=== PATIENT | female | born 1955 | race Caucasian/White ===

== ENCOUNTER 2018-03-22 05:45 | Emergency (ER) | payer MEDICARE ==
[~2018-03-22] VITALS: Ht 154.9 cm; Wt 63.5 kg
[~2018-03-22 05:45] MED LIST: METFORMIN HCL500 MG; METFORMIN HCL500 MG PO; NORCO 5-325 TA1 EACH PO; ULTRAM50 MG PO
[2018-03-22] MEDS ORDERED: PYRIDIUM200 MG PO (06:56)
[2018-03-22] MEDS ORDERED: KEFLEX500 MG PO (06:56)
== END 2018-03-22 07:04 | disposition home or self-care (01) ==
LOC: ED 05:45
DX: R13.10 Dysphagia, unspecified (principal); N39.0 Urinary tract infection, site not specified; F17.200 Nicotine dependence, unspecified, uncomplicated; Z88.5 Allergy status to narcotic agent; Z79.84 Long term (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 drugs
CPT/HCPCS: 81001; 99283

== ENCOUNTER 2018-06-01 08:11 | Day surgery (SDC) | payer MEDICARE ==
[~2018-06-01] VITALS: Ht 154.9 cm; Wt 66.2 kg
--- NOTE | ~2018-06-01 | OR ---
[facility] [address] [place], [place] [address] Draft DATE OF OPERATION: 06/01/2018 SURGEON: Ac Smith MD PREOPERATIVE DIAGNOSIS: Right laryngeal mass. POSTOPERATIVE DIAGNOSIS: Right laryngeal mass. PROCEDURES PERFORMED: Direct laryngoscopy, biopsy, debulking of right laryngeal tumor. ANESTHESIA: General orotracheal; SPACE OPERATIONS, Mercedes Chandler. PREOP HISTORY: Raudel is a 62-year-old lady with hoarseness for nine months plus. Exam in the office had shown a right laryngeal mass at the level of the vocal cord. She is taken to the operating room for the above-mentioned procedures. OPERATIVE PROCEDURE AND FINDINGS: After informed consent, the patient was taken to the operating room, placed in supine position where general orotracheal anesthesia was induced. The patient and procedure were verified. The patient was repositioned. Anterior commissure laryngoscope was used to visualize the hypopharynx and larynx. There was a bulky tumor in the right hemilarynx extending to the anterior commissure. This involved the true cord did not extend significantly below the cord, did have some submucosal involvement of the supraglottic structures on the right. Multiple biopsies were taken. The tumor was debulked, moderate bleeding stopped afterwards. The specimen was sent to pathology in formalin. The airway was slightly improved with the debulking. The bleeding had stopped after the procedure. The patient was awakened, extubated, transported to recovery room in good condition. No complications. ESTIMATED BLOOD LOSS: Minimal. SPECIMEN: To pathology. PATIENT NAME: RAUDEL VASQUEZ OPERATIVE REPORT DATE OF : 55 REPORT #: [id number] PHYSICIAN: AC SMITH MD PCP: SHELLIE MÁRQUEZ DO REPORT IS CONFIDENTIAL AND NOT TO BE RELEASED WITHOUT AUTHORIZATION [address] [place], [place] [address] [facility] DRAINS: None. Ac Smith MD GC/SOCORRO /[id number] Copies: ~ PATIENT NAME: RAUDEL VASQUEZ OPERATIVE REPORT DATE OF : 55 REPORT #: [id number] PHYSICIAN: AC SMITH MD PCP: SHELLIE MÁRQUEZ DO REPORT IS CONFIDENTIAL AND NOT TO BE RELEASED WITHOUT AUTHORIZATION
--- NOTE | ~2018-06-01 | OR ---
[facility] [address] [place], [place] [address] Draft DATE OF OPERATION: 06/01/2018 SURGEON: Ac Smith MD PREOPERATIVE DIAGNOSIS: Airway obstruction. POSTOPERATIVE DIAGNOSIS: Airway obstruction. PROCEDURE: Tracheostomy. ANESTHESIA: General orotracheal; BRICK MOLDER HAND, Mercedes Chandler. PREOPERATIVE HISTORY: Raudel is a 62-year-old lady who has a large right-sided laryngeal tumor. This was biopsied via direct laryngoscopy, general anesthetic. Earlier today in the recovery room, she had a fairly severe airway obstruction, stridor, and decision was made to perform an urgent tracheostomy for airway stabilization. OPERATIVE PROCEDURE AND FINDINGS: After an informed consent, the patient was taken to the OR, placed in the supine position where general orotracheal anesthesia was induced. The patient and procedure were verified. Head and neck were extended on a shoulder roll. The anterior neck was sterilely prepped and draped. Transverse incision was marked fingerbreadth inferior to the cricoid cartilage. A 1% lidocaine with epi was injected. Incision was made through skin and subcutaneous tissue. Dissection carried through the midline raphae down to the anterior tracheal wall. The thyroid isthmus was superior to the tracheal wall and just a small portion of the thyroid isthmus was divided in the midline with needle point cautery. An incision was made through the 2nd and 3rd tracheal interspace and the endotracheal tube identified. A small portion of cartilage adjacent inferior cartilage ring was removed. A #6 cuffed nonfenestrated Shiley trach tube was then placed with removal of the endotracheal tube. Excellent airway was obtained. The trach tube was sutured into place with 2-0 interrupted nylon. Velcro trach tie and sterile dressing. The patient was then awakened, transported to the recovery room in good condition. COMPLICATIONS: No complications. PATIENT NAME: RAUDEL VASQUEZ OPERATIVE REPORT DATE OF : 55 REPORT #: [id number] PHYSICIAN: AC SMITH MD PCP: SHELLIE MÁRQUEZ DO REPORT IS CONFIDENTIAL AND NOT TO BE RELEASED WITHOUT AUTHORIZATION [address] [place], [place] [address] Draft BLOOD LOSS: Minimal. SPECIMENS: No specimens. DRAINS: No drains. Trach tube was a #6 Shiley. Ac Smith MD GC/MODL /[id number] Copies: ~ PATIENT NAME: RAUDEL VASQUEZ OPERATIVE REPORT DATE OF : 55 REPORT #: [id number] PHYSICIAN: AC SMITH MD PCP: SHELLIE MÁRQUEZ DO REPORT IS CONFIDENTIAL AND NOT TO BE RELEASED WITHOUT AUTHORIZATION
--- NOTE | ~2018-06-01 | HP ---
[facility] [address] [place], [place] [address] Draft H&P DATE: 05/31/2018 The patient is referred by Dr. Márquez. Same-day surgery had appreciated. CHIEF COMPLAINT: Hoarseness. HISTORY: Raudel is a 62-year-old smoker with a 9-month history of a very hoarse voice. She has a sore throat, mainly right-sided earache. Occasionally feels like her throat is closing and she cannot breathe. She has had trouble swallowing. She is a long-term smoker. She was recently seen by her primary, Dr. Márquez, who has referred her for otolaryngologic evaluation. REVIEW OF SYSTEMS: Generally healthy. She does have some headaches, facial pain, and some shortness of breath. ALLERGIES: Codeine and penicillin. CURRENT MEDICATIONS: None. SURGERIES: Rotator cuff, carpal tunnel, C-sections in the distant past. SOCIAL HISTORY: She is single. Lives in [place]. Retired. Positive tobacco. Light alcohol. FAMILY HISTORY: Unremarkable. PHYSICAL EXAMINATION: VITAL SIGNS: Stable. Afebrile. GENERAL: Well developed, well nourished female, in no distress. She has a very hoarse voice, understandable, but very impacted. HEAD AND NECK: Otherwise unremarkable. LARYNGEAL: See below. CHEST: Clear. HEART: Regular rate and rhythm. PATIENT NAME: RAUDEL VASQUEZ HISTORY AND PHYSICAL DATE OF : 55 REPORT #: [id number] PHYSICIAN: AC SMITH MD PCP: YEYO MÁRQUEZ DO REPORT IS CONFIDENTIAL AND NOT TO BE RELEASED WITHOUT AUTHORIZATION [facility] [address] [place], [place] [address] Draft ABDOMEN: Benign. EXTREMITIES: Benign. NEUROLOGIC: Grossly intact. PROCEDURE: Fiberoptic laryngoscopy was performed. Oxymetazoline/lidocaine sprayed in the left nostril. The scope has passed. Normal findings in the left nasal cavity, nasopharynx and hypopharynx. There is a bulky mass in the right hemilarynx begins with the vocal cord, extends up into the supraglottic area. The right vocal cord is immobile nearly midline. The left vocal cord appears normal. There was fairly significant impingement on the airway from this tumor. The scope was removed, well tolerated. Review of records have an office note from Dr. Márquez on 05/14/2018, which I have reviewed. 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 RECOMMENDATIONS: We will take her to the OR tomorrow for direct laryngoscopy and biopsy. The patient is agreeable. The risks of surgery including bleeding, infection, need for further therapy, pending pathologic inspection, also the possibility of airway impingement requiring tracheostomy have all been explained and accepted by Raudel. She understands and desires to proceed. Ac Smith MD GC/MODL /[id number] cc: Yeyo Márquez DO Copies: EYYO MÁRQUEZ DO PATIENT NAME: RAUDEL VASQUEZ HISTORY AND PHYSICAL DATE OF : 55 REPORT #: [id number] PHYSICIAN: AC SMITH MD PCP: YEYO MÁRQUEZ DO REPORT IS CONFIDENTIAL AND NOT TO BE RELEASED WITHOUT AUTHORIZATION [address] [address] Draft ~ PATIENT NAME: RAUDEL VASQUEZ HISTORY AND PHYSICAL DATE OF : 55 REPORT #: [id number] PHYSICIAN: AC SMITH MD PCP: YEYO MÁRQUEZ DO REPORT IS CONFIDENTIAL AND NOT TO BE RELEASED WITHOUT AUTHORIZATION
[~2018-06-01 08:11] MED LIST changes: +KEFLEX500 MG PO; +PYRIDIUM200 MG PO
--- NOTE | 2018-06-01 11:05 | NUR ---
PT RESTING IN BED, INFORMED OF PT'S DIFFICULTY DEALING WITH WHAT SHE IS HAVING TO DEAL WITH. PT WAS VISIBLY UPSET, WORKED TO DEBRIEF HER AND TO FOCUS JUST ON TODAY A TOOL TO BEGIN TO FIND OUT WHAT SHE IS BATTLING. SHE WAS LOOKING WAY DOWN THE ROAD AND DEALING IN WHAT IF'S RATHER THAN KNOWING WHAT IS. PT REQUESTED PRAYER, WILL FOLLOW NEEDED
--- NOTE | 2018-06-01 11:32 | NUR ---
06/01/18 1132 Vivi Hill 1049 PT ARRIVED IN PACU AWAKE AND SOB. 1051 RACEPINEPHRINE NEB GIVEN PER ANESTHESIA VERBAL ORDER. 1054 ALBUTEROL NEB GIVEN PER ANESTHESIA VERBAL ORDER. 1058 MORPHINE 2MG GIVEN IVP TO HELP WITH THROAT PAIN PER ANESTHESIA VERBAL ORDER. [address] AND ANESTHESIA AT BED DURING ENTIRE RECOVERY. MOUTH SUCTIONED BY ANESTHESIA. 1105 VERSED 0.5MG GIVEN IVP. 1106 PT MORE RELAXED AND RESTING. REU. 1110 MONITORS REMOVED. 1116 TO OR FOR TRACH.
--- NOTE | 2018-06-01 14:46 | NUR ---
06/01/18 1446 Vivi Hill 1156 PT ARRIVED IN PACU SLEEPY. RT AT BEDSIDE AND APPLIED HUMIDIFIED AIR TO TRACH. FI02 AT 40%. 1220 PT AWAKE AND COUGHING. TRACH SUCTIONED. PT TRYING TO CRAWL OUT OF BED. VERSED 0.5MG GIVEN IVP. 1227 PT CONTINUING TO TRY TO CRAWL OUT OF BED. VERSED 1MG GIVEN IVP. 1230 PAPER AND PEN GIVEN TO PT TO WRITE TO RN. C/O SORE NECK AND WANTING TRACH OUT. MORPHINE 2MG GIVEN IVP. 1235 ALBUTEROL UNIT DOSE NEB GIVEN BY RT. PT RESTING. 1247 BLOOD SUGAR 159. 1300 RESTING. RN AT BEDSIDE. 1320 REPORT GIVEN TO [facility]. LEFT VIA STRETCHER TO [facility]. REPORT CALLED TO [facility] ICU BY MALU TATUM.
--- NOTE | 2018-06-01 20:30 | EKG ---
[facility] [address] [facility] [place], [place] [address] Signed Normal sinus rhythm Normal ECG No previous ECGs available Confirmed by MINE SOSA MD ([id number]) on 06/01/2018 8:29:56 PM Electronically Signed By: MINE SOSA MD 06/01/18 2030 PATIENT NAME: RAUDEL VASQUEZ Electrocardiogram DATE OF : 55 PHYSICIAN: MINE SOSA MD REPORT #: [id number] REPORT IS CONFIDENTIAL AND NOT TO BE RELEASED WITHOUT AUTHORIZATION
== END 2018-06-01 13:20 | disposition short-term general hospital (02) ==
LOC: DS 08:11 → OPS 08:11 → DS 09:30
PROVIDERS: Otolaryngology
PROC: 0B110F4 Bypass Trachea to Cutaneous with Tracheostomy Device, Open Approach (ICD-10-PCS; 2018-06-01)
PROC: 0CBS8ZX Excision of Larynx, Via Natural or Artificial Opening Endoscopic, Diagnostic (ICD-10-PCS; principal; 2018-06-01 09:30)
DX: C32.9 Malignant neoplasm of larynx, unspecified (principal); J98.8 Other specified respiratory disorders; E11.9 Type 2 diabetes mellitus without complications; F17.210 Nicotine dependence, cigarettes, uncomplicated; J44.9 Chronic obstructive pulmonary disease, unspecified; Z88.0 Allergy status to penicillin; Z88.5 Allergy status to narcotic agent
CPT/HCPCS: 31720; 71046; 88305; 93005; 93010; 94640; 94644; J0360; J1100; J2250; J2270; J2405; J3010; J7120

== ENCOUNTER 2018-06-16 21:54 | Observation (INO) | payer MEDICARE ==
[~2018-06-16] VITALS: Ht 154.9 cm; Wt 66.2 kg
--- OUTSIDE RECORDS SUMMARY | ~2018-06-16 | XMS | Encounter Summary ---
Demographics + + + | Address | [address] | | | [place] [address] | + + + | Home Phone | | + + + | Preferred Language | Unknown | + + + | Marital Status | Single | + + + | Sikhism Affiliation | Unknown | + + + | Race | Unknown | + + + | Ethnic Group | Unknown | + + + Author + + + | Author | [facility] | | | and Mikeana | + + + | Organization | [facility] | | | and Mikeana | [...] Team Providers + +------+ + | [employer] Name | Role | Phone | + [...] | | | | COPD type | [address] | | | | | | ([facility]LY [facility]) | Phone: | | | | | | Smoker | [phone] | | | | | | Tracheostomy | Fax: | | | | | | , acute | [phone] | | | | | | management | | | | | | | ([facility]LY [facility]) | | | | | | | 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 | | | | | | | (FORM[facility]LY [facility]) | | | | | | | [...] [place], | | | | | | (FORMERLY [facility]) | [place] | | | | | | Squamous | [address] | | | | | | cell | Phone: | | | | | | carcinoma of | [phone] | | | | | | larynx | Fax: | | | | | | ([facility]LY [facility]) | [phone] | | | | | | Procedures [...] | | | | COPD type | [address] | | | | | | ([facility]) | Phone: | | | | | | Smoker | [phone] | | | | | | Tracheostomy | Fax: | | | | | | , acute | [phone] | | | | | | management | | | | | | | ([facility]) | | | | | | | 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 | | | | | | | ([facility]) | | | + + + + [...] | | | | | | | [place] [address] | | | | | | | Phone: | | | | | | | [phone] | | | | | | | Fax: | | | | | | | [phone] | | + + + + + [...] + + | 06/01/ | Hospital | [facility] | Ac Hines, | Tracheostomy, acute | | 2018 - | Encounter | [facility] | MD [address], | management ([facility]) | | | | [address] [place] | [address] [place], | (Primary Dx); | | 06/10/ | | [place] [address] | [place] [address] | Bilateral foot pain; | | 2018 | | [phone] | [phone] | Right leg pain; | | | | | | Laryngeal carcinoma | | | | | | ([facility]); Status post | | | | | | emergency | | | | | | tracheotomy for | | | | | | assistance in | | | | | | breathing ([facility]); | | | | | | Chronic obstructive | | | | | | pulmonary disease, | | | | | | unspecified COPD | | | | | | type ([facility]); Smoker; | | | | | | [...] S/p debulking surgery and trach placement at [facility], transferred to [facility] for acut e [...] days. Specialty: Otolaryngology Why: For wound re-check--in [place] office Contact information: [address], [place] [address] Located within [facility] [address] Discharge Medications New Medications Details Commode Bedside [...] signed by: Ashkan Dennis MD, 06/10/2018 10:44 [facility] in this encounter Discharge Instructions Ashkan Dennis MD - 06/10/2018You were admitted with new tracheostomy after surgery for laryngeal mass. You will need home health at home, and we are working with the [employer] to supply home tracheostomy care needs. Please follow up with Dr. Hines to jairon iglesias the tracheostomy and treatment for the laryngeal mass. The following attachments cannot be sent through Care Everywhere.Care, Tracheostomy (Eng[place] h)Caring for Your Tracheostomy Tube and Stoma, Discharge Instructions ([place])Tracheostomy Care ([place])Tracheostomy Tube or Stoma: Your New Airway ([place])Tracheostomy Tube, Adjust ing to Your ([place])Tracheostomy Tube, Your, Answers to Common Questions About ([place])Tra cheostomy Tube, Your: Learning How to Communicate ([place])Tracheostomy Tube, Your: Tips for Eating ([place])Tracheostomy, Cleaning Your ([place])Tracheostomy, Suctioning Your ([place] )Tracheostomy, What Is ([place])in this encounter Medications at Time of Discharge [...] 3 times | | | 18 | | | m 2.5-0.5 mg/3 mL | daily. | | | | | | SOLN | | | | | | + + + +---------+ + + | docusate sodium | Take 100 mg by mouth | 60 | 0 | 06/10/20 | | | (COLACE) 100 MG | 2 times daily. | capsule | | 18 | | | capsule | | | | [...] by | 1 each | 0 | 06/10/ | | | (COMMODE BEDSIDE) | Does not apply route | | | 18 | | | MISCIndications: | as needed. | | | | | | Laryngeal carcinoma | | | | | | | ([facility]), Status post | | | | | | | emergency | | | | | | | tracheotomy for | | | | | | | assistance in | | | | | | | breathing ([facility]), | | | | | | | Chronic obstructive | | | | | | | pulmonary disease, | | | | | | | unspecified COPD | | | | | | | type ([facility]) | | | | | | + + + +---------+ + + | nicotine | Place 1 patch onto | 30 | 0 | 06/11/20 | | | (NICODERM) 21 mg/24 | the skin Daily. | patch | | 18 | | | hr | | | | | | + + + +---------+ + + | polyethylene | Take 1 diluted | | 0 | 06/10/20 | | | glycol (MIRALAX) | packet by mouth | | | 18 | | | packet | Daily. | | | | | + + + +---------+ + + | senna (SENOKOT) | Take 1 tablet by | 120 | | 06/10/20 | | | 8.6 mg tablet | mouth 2 times daily | tablet | | 18 | | | | (before meals). | | | | | + + + +---------+ + + as of this encounter Progress Notes Ashkan Dennis MD - 06/09/2018 5217 PDTFormatting of this note may be different from karine lazar. [facility] Hospitalist Progress Note Crystal Sadler is a [...] be okay to go home, asked s [facility] therapy to provide her with Passy Carmichael valve to help her talk better, preliminary [...] as outlined above. Ashkan Dennis 06/09/2018 17:20 [facility] Tiffani King RRT - 06/09/2018 0913 PDTPt is sleeping will return for trach care and suctioning when she Wakes up or her nurse calls. BS are clear but diminished SpO2 On RA is 92%, 98% on 5 lpm oxygen driven [facility].Ac Hines MD - 06/09/2018 0759 PDTPt stable and awaiting placement. Path still pending. I' ll see her in office in next weekMaylinMarlena dueñas, SECURITIES COUNSELOR - 06/09/2018 0129 PDTPatient trach w as [...] am if path is done Janee Cornell, ADRIA - 06/08/2018 0956 PDTAt 0730 this morning [...] stoma to Dr. Dennis and to the [facility] supervisor [place]. At 9:14 I received a call from [...] without ENT assessment. Electronically signed by: Janee Cornell RRT 8 10:09 Ashkan Dennis MD - 06/08/2018 0842 PDTFormatting of this note may be different from th e original. [facility] Hospitalist Progress Note Crystal Sadler is a [...] discussed with Dr. Hines who is in [place], will discuss with Dr. Chavira today [...] as outlined above. Ashkan Dennis 06/08/2018 8:51 [facility] Prosper Dudley MD - 06/07/2018 1258 PDTFormatting of this note may be different from karine kingston original. 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 She was referred to ENT at which point a bulky laryngeal mass was identified On 06/01/18 the patient underwent tumor debulking, Bx at [facility] in [place], [place] Post operatively the pt abruptly developed airway obstruction and returned to the OR at [facility] ch time an urgent tracheostomy was performed. The pt was then transferred to [facility] ICU for further care. Initially [...] Bx and urgent tracheotomy tube placement at [facility] on 06/01/18 Now stable from cardio-pulm standpoint Arrangements being made for transfer to skilled facility for trach training Pt to follow up with Dr Hines in approx week's time for conversion to non-cuffed trach To start XRT in near future Seen by HOSPITAL COORDINATOR eval; some dyphagia noted; dietary recommendations noted Would consider eval by med oncol as well Continue DEIDRE's Tracheal humidification Would check caloric intake. Nicotine replacement therapy added Continue regimen. Possible feeding tube in the future Further management per ENT service Electronically signed by: Prosper Dudley MD, DATE/TIME: 06/07/2018 12:58 [facility] HOSPITALIST Prosper Sierra MD - 06/06/2018 1144 PDTFormatting of this note may be different from the original. 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 She was referred to ENT at which point a bulky laryngeal mass was identified On 06/01/18 the patient underwent tumor debulking, Bx at [facility] in [place], [place] Post operatively the pt abruptly developed airway obstruction and returned to the OR at [facility] ch time an urgent tracheostomy was performed. The pt was transferred to [facility] ICU for further care. Initially [...] for temporary admission to skilled facility for [facility] h training, PT. She is awake, alert [...] Bx and urgent tracheotomy tube placement at [facility] on 06/01/18 Stable from cardio-pulm standpoint Arrangements being made for transfer to skilled facility for trach training Pt to follow up with Dr Hines in approx week's time for conversion to non-cuffed trach To start XRT in near future Seen by HOSPITAL COORDINATOR eval; some dyphagia noted; dietary recommendations noted Would consider eval by med oncol as well Continue DEIDRE's Tracheal humidification Would check caloric intake. Nicotine replacement therapy added Continue regimen. Possible feeding tube in the future Electronically signed by: Prosper Dudley MD, DATE/TIME: 06/06/2018 11:44 [facility] Pros[facility] Sierra MD - 06/05/2018 1304 PDTFormatting of this note may be different from the original. 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 She was referred to ENT at which point a bulky laryngeal mass was identified On 06/01/18 the patient underwent tumor debulking, Bx at [facility] in [place], [place] Post operatively the pt abruptly developed airway obstruction and returned to the OR at [facility] ch time an urgent tracheostomy was performed. The pt was transferred to [facility] ICU for further care. Initially [...] start XRT in near future Seen by HOSPITAL COORDINATOR eval; some dyphagia noted; dietary recommendations noted Would consider eval by med oncol as well Continue DEIDRE's Tracheal humidification Would check caloric intake. Nicotine replacement therapy added Continue regimen. Electronically signed by: Prosper Dudley MD, DATE/TIME: 06/05/2018 13:04 [facility] HOSPITALIST Prosper Sierra MD - 06/04/2018 1246 PDTFormatting of this note may be different from the original. 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 She was referred to ENT at which point a bulky laryngeal mass was identified On 06/01/18 the patient underwent tumor debulking, Bx at [facility] in [place], [place] Post operatively the pt abruptly developed airway obstruction and returned to the OR at [facility] ch time an urgent tracheostomy was performed. The pt was transferred to [facility] ICU for further care. Initially [...] 1901 - 06/04 0700 In: 2434 [P.O.:480; I.V.:1953] Out: 550 [Urine:550] Admit Weight: Weight: 64.5 [...] To start XRT in near future Awaiting HOSPITAL COORDINATOR eval altho pt appears to be able to tolerate po now; I am less optimistic abou t PO intake once XRT begins at which point pt may required feeding tube Would consider eval by med oncol as well Continue DEIDRE's Tracheal humidification Would check caloric intake. Nicotine replacement therapy added Check labs in AM Electronically signed by: Prosper Dudley MD, DATE/TIME: 06/04/2018 12:46 [facility] HOSPITALIST Heide Abdullahi RN - 06/02/2018 1638 PDTPt transferred down from ICU. Alert and able to mouth need or uses paper to communicate. ASSOCIATE JUVENILE COURT JUDGE reported th at she did try to [...] 11:21 in this encounter Plan of Treatment + +--------+ + + | Name | [...] (H) | 4.48 - 5.28 mg/dL | [facility]. | | | [...] + | [facility] | [address] | [place] | [phone] | | [facility] | | [address] | | | - LABORATORY | | | | + + + + + | [facility] | [address] | [place] | | | [facility] | | [address] | | | - LABORATORY | | | | + + + + + Phosphorus (06/06/2018605) + +-------+ + + | Component | Value | Ref Range | Performed At | + +-------+ + + | PHOSPHORUS | 3.5 | 2.5 - 4.6 mg/dL | [facility] | | | | | [facility] | | | | | CENTER - | | | | | LABORATORY | + +-------+ + + + + | Specimen | + + | Blood | + + + + + + + | Performing | Address | City/State/Zipcode | Phone Number | | Organization | | | | + + + + + | [facility] | [address] | [place] | [phone] | | [facility] | | [address] | | | - LABORATORY | | | | + + + + + | [facility] | [address] | [place] | | | [facility] | | [address] | | | - LABORATORY | | | | + + + + + Magnesium (06/06/2018605) + +-------+ + + | Component | Value | Ref Range | Performed At | + +-------+ + + | MG | 2.0 | 1.8 - 2.5 mg/dL | [facility] | | | | [...] + | [facility] | [address] | [place] | [phone] | | [facility] | | [address] | | | - LABORATORY | | | | + + + + + | [facility] | [address] | [place] | | | [facility] | | [address] | | | - LABORATORY | | | | + + + + + CBC no Differential (06/06/2018605) + +-------+ + + | Component | Value | Ref Range | Performed At | + +-------+ + + | WBC | 6.8 | 4.0 - 11.0 K/uL | [facility] | | | | | [facility] | | | | | CENTER [...] + | [facility] | [address] | [place], [place] | [phone] | | [facility] | | [address] | | | - LABORATORY | | | | + + + + + | [facility] | [address] | [place], [place] | | | [facility] | | [address] | | | - LABORATORY | | [...] 0.60 | 0.60 - 1.30 mg/dL | [facility] | | Serum/Plasma | | | [facility] | | | | | CENTER - | | | | | LABORATORY | + + + + + | eGFR if not | >60Comment: GLOMERULAR | >=60 mL/min/1.73m2 | [facility] | | NIUEAN | FILTRATION | | [facility] | | | RATE,ESTIMATED mL/min | | CENTER - | | | /1.90r7Obtg than 60 | | LABORATORY | | [...] 8.9 | 8.3 - 10.5 mg/dL | [facility] | | | | | [facility] | | | | | CENTER - | | | | | LABORATORY | + + + + + | [facility] | 18.3 | | [facility] | | | | | [facility] | | | | | CENTER [...] [address] | [place] | [phone] | | [facility] | | [address] | | | - LABORATORY | | | | + + + + + | [facility] | [address] | [place], [place] | | | [facility] | | [address] | | | - LABORATORY | | | | + + + + + Culture, MRSA (06/01/2018 4329) + + + + + | Component | Value | Ref Range | Performed At | + + + + + | Culture | Negative for MRSA by | | [facility] | | | chromogenic agar method | | [facility] | | | | | CENTER [...] + | [facility] | [address] | [place] | [phone] | | [facility] | | [address] | | | - LABORATORY | | | | + + + + + | [facility] | [address] | [place], [place] | | | [facility] | | [address] | | | - LABORATORY | | [...] | | | | 06/06/18 at 1532, Shake well. | | | | | | [...] Upper | | DAILY, First dose on Tu06/01/18 | | PDT | | | | [...] | | | | First dose on Len[place] 06/10/18 at | | PDT | | [...] | | | | First dose on [facility] 06/10/18 at 1045 | | PDT [...] +---------+ +---+ +---+ | New Bag | 8//201 | | 50 mL/hr | | | | 8 12:20 | | | | | | PDT | | | | +---------+ +---+ +---+ | New Bag | 8/201 | | 50 mL/hr | | | | 8 12:33 | | | | | | PDT | | | | +---------+ +---+ +---+ +---+---+ | | | +---+---+ in this encounter
--- OUTSIDE RECORDS SUMMARY | ~2018-06-16 | XMS | Encounter Summary ---
Demographics + + + | Address | [address] | | | [place] [address] | + + + | Home Phone | | + + + | Preferred Language | Unknown | + + + | Marital Status | Single | + + + | Church Affiliation | Unknown | + + + | Race | Unknown | + + + | Ethnic Group | Unknown | + + + Author + + + | Author | [facility] | | | and Mikeana | + + + | Organization | [facility] | | | and Mikeana | [...] Team Providers + +------+ + | Care Dietary Aide Cook Name | Role | Phone | + [...] | | | | COPD type | [address] | | | | | | (FORMERLY [facility]) | Phone: | | | | | | Smoker | [phone] | | | | | | Tracheostomy | Fax: | | | | | | , acute | [phone] | | | | | | management [...] (FORMERLY [facility]) | [place] | | | | | | 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 | Ac Hines, | Tracheostomy, acute | | 2018 - | Encounter | [facility] | MD [address], | management ([facility]LY [facility]) | | | | [address] [place] | [address] [place], | (Primary Dx); | | 06/10/ | | [place] [address] | [place] [address] | Bilateral foot pain; | | 2018 | | [phone] | [phone] | Right leg pain; | | | | | | Laryngeal carcinoma | | | | | | ([facility]); Status post | | | | | | emergency | | | | | | tracheotomy for | | | | | | assistance in | | | | | | breathing ([facility]); | | | | | | Chronic obstructive | | | | | | pulmonary disease, | | | | | | unspecified COPD | | | | | | type ([facility]); Smoker; | | | | | | [...] S/p debulking surgery and trach placement at [facility], transferred to [facility] for acut e care - Admitted [...] days. Specialty: Otolaryngology Why: For wound re-check--in [place] office Contact information: [address], [place] [address] [facility] [address] Discharge Medications New Medications Details Commode Bedside [...] signed by: Ashkan Dennis MD, 06/10/2018 10:44 [facility] in this encounter Discharge Instructions Ashkan Dennis MD - 06/10/2018You were admitted with new tracheostomy after surgery for laryngeal mass. You will need home health at home, and we are working with the [facility] to supply home tracheostomy care needs. Please follow up with Dr. Hines to jairon iglesias the tracheostomy and treatment for the laryngeal mass. The following attachments cannot be sent through Care Everywhere.Care, Tracheostomy (Englis h)Caring for Your Tracheostomy Tube and Stoma, Discharge Instructions (Ecuadorean)Tracheostomy Care (Ecuadorean)Tracheostomy Tube or Stoma: Your New Airway (Ecuadorean)Tracheostomy Tube, Adjust ing to Your (Ecuadorean)Tracheostomy Tube, Your, Answers to Common Questions About (Ecuadorean)Tra cheostomy Tube, Your: Learning How to Communicate (Ecuadorean)Tracheostomy Tube, Your: Tips for Eating (Ecuadorean)Tracheostomy, Cleaning Your (Ecuadorean)Tracheostomy, Suctioning Your (Ecuadorean )Tracheostomy, What Is (Ecuadorean)in this encounter Medications at Time of Discharge [...] [place]) | | | | | | + [...] Progress Notes Ashkan Dennis MD - 06/09/2018 3377 PDTFormatting of this note may be different from karine lazar. [facility] Hospitalist Progress Note Crystal Sadler is [...] be okay to go home, asked s [facility] to provide her with Passy [place] valve to help her talk better, preliminary [...] as outlined above. Ashkan Dennis 06/09/2018 17:20 [facility] Tiffani King RRT - 06/09/2018 0913 PDTPt is sleeping will return for trach care and suctioning when she Wakes up or her nurse calls. BS are clear but diminished SpO2 On RA is 92%, 98% on 5 lpm oxygen driven [facility].Ac Hines MD - 06/09/2018 0759 PDTPt stable and awaiting placement. Path still pending. I' ll see her in office in next weekMaylinMarlena dueñas, BASE ENGINEER - 06/09/2018 0129 PDTPatient trach w as [...] stoma to Dr. Dennis and to the [facility] finishing area supervisor. At 9:14 I received a call [...] may be different from th e original. [facility] Hospitalist Progress Note Crystal Sadler is [...] as outlined above. Ashkan Dennis 06/08/2018 8:51 [facility] Prosper Dudley MD - 06/07/2018 1258 PDTFormatting of this note may be different from karine kingston original. 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 She was referred to ENT at which point a bulky laryngeal mass was identified On 06/01/18 the patient underwent tumor debulking, Bx at [facility] in [place], [place] Post operatively the pt abruptly developed airway obstruction and returned to the OR at [facility] time an urgent tracheostomy was performed. The pt was then transferred to [facility] ICU for further care. Initially [...] Bx and urgent tracheotomy tube placement at [facility] on 06/01/18 Now stable from cardio-pulm standpoint Arrangements being made for transfer to skilled facility for trach training Pt to follow up with Dr Hines in approx week's time for conversion to non-cuffed trach To start XRT in near future Seen by VAULT MANAGER eval; some dyphagia noted; dietary recommendations noted Would consider eval by med oncol as well Continue DEIDRE's Tracheal humidification Would check caloric intake. Nicotine replacement therapy added Continue regimen. Possible feeding tube in the future Further management per ENT service Electronically signed by: Prosper Dudley MD, DATE/TIME: 06/07/2018 12:58 [facility] HOSPITALIST Prosper Sierra MD - 06/06/2018 1144 PDTFormatting of this note may be different from the original. 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 She was referred to ENT at which point a bulky laryngeal mass was identified On 06/01/18 the patient underwent tumor debulking, Bx at [facility] in [place], [place] Post operatively the pt abruptly developed airway obstruction and returned to the OR at [facility] time an urgent tracheostomy was performed. The pt was transferred to [facility] ICU for further care. Initially [...] for temporary admission to skilled facility for [facility] h training, PT. She is [...] Bx and urgent tracheotomy tube placement at [facility] on 06/01/18 Stable from cardio-pulm standpoint Arrangements being made for transfer to skilled facility for trach training Pt to follow up with Dr Hines in approx week's time for conversion to non-cuffed trach To start XRT in near future Seen by VAULT MANAGER eval; some dyphagia noted; dietary recommendations noted Would consider eval by med oncol as well Continue DEIDRE's Tracheal humidification Would check caloric intake. Nicotine replacement therapy added Continue regimen. Possible feeding tube in the future Electronically signed by: Prosper Dudley MD, DATE/TIME: 06/06/2018 11:44 [facility] MD - 06/05/2018 1304 PDTFormatting of this note may be different from the original. 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 She was referred to ENT at which point a bulky laryngeal mass was identified On 06/01/18 the patient underwent tumor debulking, Bx at [facility] in [place], [place] Post operatively the pt abruptly developed airway obstruction and returned to the OR at [facility] time an urgent tracheostomy was performed. The pt was transferred to [facility] ICU for further care. Initially [...] start XRT in near future Seen by VAULT MANAGER eval; some dyphagia noted; dietary recommendations noted Would consider eval by med oncol as well Continue DEIDRE's Tracheal humidification Would check caloric intake. Nicotine replacement therapy added Continue regimen. Electronically signed by: Prosper Dudley MD, DATE/TIME: 06/05/2018 13:04 [facility] HOSPITALIST Prosper Sierra MD - 06/04/2018 1246 PDTFormatting of this note may be different from the original. HOSPITALIST progress NOTE [facility] [place] 06/04/2018 Rounding Physician: Prosper Dudley MD Patient Name: Crystal Sadler : 1955 Medical Record: [id number] Primary Hospital Problem: Laryngeal tumor S/p tracheotomy HPI: Pt is 62yo mcc smoker who developed sore throat, hoarseness and ear ache. She was referred to ENT at which point a bulky laryngeal mass was identified On 06/01/18 the patient underwent tumor debulking, Bx at [facility] in [place], [place] Post operatively the pt abruptly developed airway obstruction and returned to the OR at [facility] time an urgent tracheostomy was performed. The pt was transferred to [facility] ICU for further care. Initially [...] To start XRT in near future Awaiting VAULT MANAGER eval altho pt appears to be [...] by: Prosper Dudley MD, DATE/TIME: 06/04/2018 12:46 [facility] HOSPITALIST Heide Abdullahi RN - 06/02/2018 1638 PDTPt transferred down from ICU. Alert and able to mouth need or uses paper to communicate. MARKETING MANAGER [employer] reported th at she did try to [...] + | [facility] | [address] | [place] | [phone] | | [facility] | | [address] | | | - LABORATORY | | | | + + + + + | [facility] | [address] | [place] | | | [facility] | | [address] | | | - LABORATORY | | | | + + + + + Phosphorus (06/06/2018605) + +-------+ + + | Component | Value | Ref Range | Performed At | + +-------+ + + | PHOSPHORUS | 3.5 | 2.5 - 4.6 mg/dL | [facility] | | | | | [facility] | | | | | CENTER - | | | | | LABORATORY | + +-------+ + + + + | Specimen | + + | Blood | + + + + + + + | Performing | Address | City/State/Zipcode | Phone Number | | Organization | | | | + + + + + | [facility] | [address] | [place] | [phone] | | [facility] | | [address] | | | - LABORATORY | | | | + + + + + | [facility] | [address] | [place] | | | [facility] | | [address] | | | - LABORATORY | | [...] + | [facility] | [address] | [place] | [phone] | | [facility] | | [address] | | | - LABORATORY | | | | + + + + + | [facility] | [address] | [place] | | | [facility] | | [address] | | | - LABORATORY | | | | + + + + + CBC no Differential (06/06/2018605) + +-------+ + + | Component | Value | Ref Range | Performed At | + +-------+ + + | WBC | 6.8 | 4.0 - 11.0 K/uL | [facility] | | | | | [facility] | | | | | CENTER [...] + | [facility] | [address] | [place], [place] | [phone] | | [facility] | | [address] | | | - LABORATORY | | | | + + + + + | [facility] | [address] | [place], [place] | | | [facility] | | [address] | | | - LABORATORY | | [...] 0.60 | 0.60 - 1.30 mg/dL | [facility] | | Serum/Plasma | | | [facility] | | | | | CENTER - | | | | | LABORATORY | + + + + + | eGFR if not | >60Comment: GLOMERULAR | >=60 mL/min/1.73m2 | [facility] | | P[place]ST[place]IAN | FILTRATION | | [facility] | | | RATE,ESTIMATED mL/min | | CENTER - | | | /1.58v3Xtpy than 60 | | LABORATORY | | [...] 8.9 | 8.3 - 10.5 mg/dL | [facility] | | | | | [facility] | | | | | CENTER - | | | | | LABORATORY | + + + + + | [facility] | 18.3 | | [facility] | | | | | [facility] | | | | | [...] [address] | [place] | [phone] | | [facility] | | [address] | | | - LABORATORY | | | | + + + + + | [facility] | [address] | [place], [place] | | | [facility] | | [address] | | | - LABORATORY | | | | + + + + + Culture, MRSA (06/01/2018 4819) + + + + + | Component | Value | Ref Range | Performed At | + + + + + | Culture | Negative for MRSA by | | [facility] | | | chromogenic agar method | | [facility] | | | | | CENTER [...] + | [facility] | [address] | [place] | [phone] | | [facility] | | [address] | | | - LABORATORY | | | | + + + + + | [facility] | [address] | [place], [place] | | | [facility] | | [address] | | | - LABORATORY | | [...] | | | | First dose on [facility] 06/10/18 at 1045 | | PDT | [...]
--- OUTSIDE RECORDS SUMMARY | ~2018-06-16 | XMS | Clinical Summary ---
Demographics + + + | Address | [address] | | | [place] [address] | + + + | Home Phone | | + + + | Preferred Language | Unknown | + + + | Marital Status | Single | + + + | Yazidism Affiliation | Unknown | + + + | Race | Unknown | + + + | Ethnic Group | Unknown | + + + Author + + + | Author | and [facility] | | | and Mikeana | + + + | Organization | and [facility] | | | and Mikeana [...] Team Providers + +------+ + | Care Orthopedic Physician Name | Role | Phone | + +------+ + | Yeyo Anderson DO | PP | | + +------+ + Allergies No Known Allergies Current Medications + + + +---------+------+------+-------+ | [...] every 4 hours | tablet | | 6/20 | | e | | ophen (NORCO) 5-325 | as needed. | | | 18 | | | | mg per tablet | | | | | | | + + + +---------+------+------+-------+ | docusate sodium | Take 100 mg by mouth | 60 | 0 | 08/2 | | Activ | | (COLACE) 100 MG | 2 times daily. | capsule | | 3/20 | | e | | capsule | | | | 18 | | | + + + +---------+------+------+-------+ | nicotine | Place 1 patch onto | 30 | 0 | 08/2 | | Activ | | (NICODERM) 21 mg/24 | the skin Daily. | patch | | 4/20 | | e | | hr | | | | 18 | | | + + + +---------+------+------+-------+ | polyethylene | Take 1 diluted | | 0 | 08/2 | | Activ | | glycol (MIRALAX) | packet by mouth | | | 3/20 | | e | | packet | Daily. | | | 18 | | | + + + +---------+------+------+-------+ | senna (SENOKOT) | Take 1 tablet by | 120 | | 08/2 | | Activ | | 8.6 mg tablet | mouth 2 times daily | tablet | | 01/05 | | e | | | (before meals). | | | 18 | | | [...] EMERGENCY) | | | | | | | + + + +---------+------+------+-------+ | Humidifiers (COOL | 1 applicator by Does | 1 each | 0 | 08/2 | | Activ | | MIST HUMIDIFIER 1 | not apply route as | | | 3/20 | | e | | YUMIKO) MISC | needed. | | | 18 | | | + + + +---------+------+------+-------+ | | Take 3 mLs by | 90 mL | 0 | 08/2 | | Activ | | albuterol-ipratropiu | nebulization 3 times | | | 3/20 | | e | | m 2.5-0.5 mg/3 mL | daily. | | | 18 | | | | SOLN | | | | | | | + + + +---------+------+------+-------+ | albuterol 2.5 mg/3 | Take 3 mLs by | 60 vial | 0 | 08/2 | | Activ | | mL nebulizer | nebulization every 4 | | | 3/20 | | e | | solution | hours as needed for | | | 18 | | | | | Wheezing or | | | | | | | | Shortness of Breath. | | | | | | + + + +---------+------+------+-------+ Active Problems [...] pain | 06/19/2016 | + + + Encounters +--------+ + [...] | Encounter | | MD | management ([facility]) | | | | | | (Primary Dx); | | 06/10/ | | | | Bilateral foot pain; | | 2017 | | | | Right leg pain; | | | | | | Laryngeal carcinoma | | | | | | ([facility]); Status post | | | | | | emergency | | | | | | tracheotomy for | | | | | | assistance in | | | | | | breathing ([facility]); | | | | | | Chronic obstructive | | | | | | pulmonary disease, | | | | | | unspecified COPD | | | | | | type ([facility]); Smoker; | | | | | | 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 | | | [place] | | | evaluated | | | [...] | go home, | | | Passy [place] | | | valve | | | [...] | | with Dr. | | | [place] S | | | moker/COPD: | | [...] | | re-check--i | | | n [place] | | | | | | officeConta | | | ct | | | information | | | :[address] | | [address], [place] | | | [address] | | | [place] | | | [phone] | | | [birth year] | | | Discharge | | | [...] | signed by: | | | Ashkan Espinosa. | | | MD Jeannie, | | | 06/10/2018 | | | 10:44 | | | [place] | | [facility] | | | [facility] | +---+ + from Last 3 Months Social History + + + +--------+------+ | [...] + | Blood Pressure | 106/53 | 06/10/2018 1210 PDT | + + + + | [...] | 63.7 kg (140 lb 6.9 | 06/02/20185 PDT | | | oz) | | + + + + | Height | 154.9 cm (5' 1") | 06/01/2018 1649 PDT | + + + + | Body Mass Index | 26.53 | 06/02/2018 0245 PDT | + + + + Plan of Treatment + + + + + | Health [...] + from Last 3 Months Results CBC no Differential (06/06/2018 0606) + +-------+ [...] + + | Performing | Address | City/State/Renatocode | Phone Number | | Organization | | | | + + + + + | [facility] | [address] | [place], [place] | [phone] | | [facility] | | [address] | | | - LABORATORY | | | | + + + + + | [facility] | [address] | [place], [place] | | | [facility] | | [address] | | | - LABORATORY | | | | + + + + + Phosphorus (06/06/2018605) + +-------+ + + | Component | Value | Ref Range | Performed At | + +-------+ + + | PHOSPHORUS | 3.5 | 2.5 - 4.6 mg/dL | [facility] | | | | | [place] [...] + | [facility] | [address] | [place] | [phone] | | [facility] | | [address] | | | - LABORATORY | | | | + + + + + | [facility] | [address] | [place] | | | [facility] | | [address] | | | - LABORATORY | | [...] + | [facility] | [address] | [place] | [phone] | | [facility] | | [address] | | | - LABORATORY | | | | + + + + + | [facility] | [address] | [place] | | | [facility] | | [address] | | | - LABORATORY | | | | + + + + + Calcium, Ionized (06/06/2018605) + + + + + | Component | Value | Ref Range | Performed At | + + + + + | Ionized Calcium | 5.68 (H) | 4.48 - 5.28 mg/dL | [facility] | | | | | [place] [...] + | [facility] | [address] | [place], [place] | [phone] | | [facility] | | [address] | | | - LABORATORY | | | | + + + + + | [facility] | [address] | [place], [place] | | | [facility] | | [address] | | | - LABORATORY | | | | + + + + + Basic Metabolic Panel (06/06/2018605) + + + + + | Component | Value | Ref Range | Performed At | + + + + + | NA | 137 | 136 - 149 mmol/L | [facility] | | | | | [facility] [...] 11 | 7 - 18 mg/dL | [facility] | | | | | [facility] | | | | | CENTER - | | | | | LABORATORY | + + + + + | Creatinine, | 0.60 | 0.60 - 1.30 mg/dL | [facility] | | Serum/Plasma | | | [facility] | | | | | CENTER - | | | | | LABORATORY | + + + + + | eGFR if not | >60Comment: GLOMERULAR | >=60 mL/min/1.73m2 | [facility] | | [place] | FILTRATION | | [facility] | | | RATE,ESTIMATED mL/min | | CENTER - | | | /1.70j1Nftf than 60 | | LABORATORY | | [...] 8.9 | 8.3 - 10.5 mg/dL | [facility] | | | | | [facility] | | | | | CENTER - | | | | | LABORATORY | + + + + + | [facility] | 18.3 | | [facility] | | | | | [facility] [...] + | [facility] | [address] | [place] | [phone] | | [facility] | | [address] | | | - LABORATORY | | | | + + + + + | [facility] | [address] | [place] | | | [facility] | | [address] | | | - LABORATORY | | | | + + + + + Culture, MRSA (06/01/20181658) + + + + + | Component | Value | Ref Range | Performed At | + + + + + | Culture | Negative for MRSA by | | [facility] | | | chromogenic agar method | | [facility] | | [...] + | [facility] | [address] | [place], [place] | [phone] | | [facility] | | [address] | | | - LABORATORY | | | | + + + + + | [facility] | [address] | [place], [place] | | | [facility] | | [address] | | | - LABORATORY | | [...] +--------+ +---------+ | MEDICARE | MEDICA | [id number] | Medica | [phone] | | [...] + +--------+ +--------+ + + | CRYSTAL VASQUEZ | Person | Self [birth year] Home: | [address] | | [place] | al/Fam | | [phone] | [phone] [place] [address] | | | emerita | | | [phone] | | + +--------+ +--------+ + +
--- OUTSIDE RECORDS SUMMARY | ~2018-06-16 | XMS | Encounter Summary ---
Demographics + + + | Address | [address] | | | [place] [address] | + + + | Home Phone | | + + + | Preferred Language | Unknown | + + + | Marital Status | Single | + + + | Voodoo Affiliation | Unknown | + + + | Race | Unknown | + + + | Ethnic Group | Unknown | + + + Author + + + | Author | [facility] | | | and Mikeana | + + + | Organization | [facility] | | | [...] Team Providers + +------+ + | Care Field Crew Chief Name | Role | Phone | + +------+ + | Yeyo Anderson DO | PCP | | + +------+ + Encounter Details +--------+ + + + + | Date | Type | Department | Care Team | Description | +--------+ + + + + | 06/10/ | [facility] | [facility] | Lida Garcia | | | 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 | MED CTR ACUTE | D, PT [address] | | | | | PHYSICAL THERAPY | [place] | | | | | [address] [place] | [address] | | | | | [place] [address] | | | | | | [phone] | | | +--------+ + + + [...] | | | | | | | ([facility]), Status post | | | | | | | emergency | | | | | | | tracheotomy for | | | | | | | assistance in | | | | | | | breathing ([facility]), | | | | | | | Chronic obstructive | | | | | | | pulmonary disease, | | | | | | | unspecified COPD | | | | | | | type ([facility]) | | | | | [...] Take 1 diluted | | 0 | 20 | | | glycol (MIRALAX) | packet [...] as of this encounter Plan of Treatment Not on fileas of this encounter Visit Diagnoses Not on filein this encounter"
--- OUTSIDE RECORDS SUMMARY | ~2018-06-16 | XMS | Encounter Summary ---
Demographics + + + | Address | [address] | | | [place] [address] | + + + | Home Phone [...] | Author | [facility] | | | and [place] | + + + | Organization | [facility] | | | and Mikeana [...] Team Providers + +------+ + | Care Histopath Tech Name | Role | Phone | + [...] | | | | COPD type | [address] | | | | | | ([facility]) | Phone: | | | | | | Smoker | [phone] | | | | | | Tracheostomy | Fax: | | | | | | , acute | [phone] | | | | | | management | | | | | | | ([facility]) | | | | | | | 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 | | | | | | | ([facility]) | | | | | | | [...] | | | | | | (FORMERLY [facility]) | [place] | | | | | | Squamous | [address] | | | | | | cell | Phone: | | | | | | carcinoma of | [phone] | | | | | | larynx | Fax: | | | | | | ([facility]) | [phone] | | | | | | Procedures [...] | | | | COPD type | [address] | | | | | | ([facility]) | Phone: | | | | | | Smoker | [phone] | | | | | | Tracheostomy | Fax: | | | | | | , acute | [phone] | | | | | | management | | | | | | | ([facility]) | | | | | | | 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 | | | | | | | ([facility]) | | | + + + + [...] | | | | | | | [place] [address] | | | | | | | Phone: | | | | | | | [phone] | | | | | | | Fax: | | | | | | | [phone] | | + + + + + [...] + + | 06/01/ | Hospital | [facility] | Ac Hines, | Tracheostomy, acute | | 2018 - | Encounter | MED CTR SURGICAL | MD [address], | management ([facility]) | | | | [address] [place] | [address] [place], | (Primary Dx); | | 06/10/ | | [place] [address] | [place] [address] | Bilateral foot pain; | | 2018 | | [phone] | [phone] | Right leg pain; | | | | | | Laryngeal carcinoma | | | | | | ([facility]); Status post | | | | | | emergency | | | | | | tracheotomy for | | | | | | assistance in | | | | | | breathing ([facility]); | | | | | | Chronic obstructive | | | | | | pulmonary disease, | | | | | | unspecified COPD | | | | | | type ([facility]); Smoker; | | | | | | [...] S/p debulking surgery and trach placement at [facility], transferred to [facility] for acut e care - [...] days. Specialty: Otolaryngology Why: For wound re-check--in [place] office Contact information: [address], [place] [address] [facility] [address] Discharge Medications New Medications Details Commode Bedside [...] signed by: Ashkan Dennis MD, 06/10/2018 10:44 [facility] in this encounter Discharge Instructions Ashkan Dennis MD - 06/10/2018You were admitted with new tracheostomy after surgery for laryngeal mass. You will need home health at home, and we are working with the [facility] to supply home tracheostomy care needs. Please follow up with Dr. Hines to jairon iglesias the tracheostomy and treatment for the laryngeal mass. The following attachments cannot be sent through Care Everywhere.Care, Tracheostomy (Englis h)Caring for Your Tracheostomy Tube and Stoma, Discharge Instructions (Egyptian)Tracheostomy Care (Egyptian)Tracheostomy Tube or Stoma: Your New Airway (Egyptian)Tracheostomy Tube, Adjust ing to Your (Egyptian)Tracheostomy Tube, Your, Answers to Common Questions About (Egyptian)Tra cheostomy Tube, Your: Learning How to Communicate (Egyptian)Tracheostomy Tube, Your: Tips for Eating (Egyptian)Tracheostomy, Cleaning Your (Egyptian)Tracheostomy, Suctioning Your (Egyptian )Tracheostomy, What Is (Egyptian)in this encounter Medications at Time of Discharge [...] | | | | | | ([facility]), Status post | | | | | | | emergency | | | | | | | tracheotomy for | | | | | | | assistance in | | | | | | | breathing ([facility]), | | | | | | | Chronic obstructive | | | | | | | pulmonary disease, | | | | | | | unspecified COPD | | | | | | | type ([facility]) | | | | | | + [...] Progress Notes Ashkan Dennis MD - 06/09/2018 1137 PDTFormatting of this note may be different from karine lazar. [facility] Hospitalist Progress Note Crystal Sadler is a [...] be okay to go home, asked s [facility] therapy to provide her with Passy [place] valve to help her talk better, preliminary [...] as outlined above. Ashkan Dennis 06/09/2018 17:20 [facility] Tiffani King RRT - 06/09/2018 0913 PDTPt is sleeping will return for trach care and suctioning when she Wakes up or her nurse calls. BS are clear but diminished SpO2 On RA is 92%, 98% on 5 lpm oxygen driven [facility].Ac Hines MD - 06/09/2018 0759 PDTPt stable and awaiting placement. Path still pending. I' ll see her in office in next weekMaylinMarlena dueñas, TRACTOR TRAILER TECHNICIAN - 06/09/2018 0129 PDTPatient trach w [...] stoma to Dr. Dennis and to the [facility] supervisor liquefaction. At 9:14 I received a call from [...] may be different from th e original. [facility] Hospitalist Progress Note Crystal Sadler is a [...] as outlined above. Ashkan Dennis 06/08/2018 8:51 [facility] Prosper Dudley MD - 06/07/2018 1258 PDTFormatting of this note may be different from karine kingston original. 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 She was referred to ENT at which point a bulky laryngeal mass was identified On 06/01/18 the patient underwent tumor debulking, Bx at [facility] in [place], [place] Post operatively the pt abruptly developed airway obstruction and returned to the OR at [facility] time an urgent tracheostomy was performed. The pt was then transferred to [facility] ICU for further care. Initially the [...] Bx and urgent tracheotomy tube placement at [facility] on 06/01/18 Now stable from cardio-pulm standpoint Arrangements being made for transfer to skilled facility for trach training Pt to follow up with Dr Hines in approx week's time for conversion to non-cuffed trach To start XRT in near future Seen by SIDING COREBOARD INSPECTOR eval; some dyphagia noted; dietary recommendations noted Would consider eval by med oncol as well Continue DEIDRE's Tracheal humidification Would check caloric intake. Nicotine replacement therapy added Continue regimen. Possible feeding tube in the future Further management per ENT service Electronically signed by: Prosper Dudley MD, DATE/TIME: 06/07/2018 12:58 [facility] HOSPITALIST Prosper Sierra MD - 06/06/2018 1144 PDTFormatting of this note may be different from the original. 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 She was referred to ENT at which point a bulky laryngeal mass was identified On 06/01/18 the patient underwent tumor debulking, Bx at [facility] in [place], [place] Post operatively the pt abruptly developed airway obstruction and returned to the OR at [facility] time an urgent tracheostomy was performed. The pt was transferred to [facility] ICU for further care. Initially the [...] for temporary admission to skilled facility for [facility] h training, PT. She is awake, alert [...] Bx and urgent tracheotomy tube placement at [facility] on 06/01/18 Stable from cardio-pulm standpoint Arrangements being made for transfer to skilled facility for trach training Pt to follow up with Dr Hines in approx week's time for conversion to non-cuffed trach To start XRT in near future Seen by SIDING COREBOARD INSPECTOR eval; some dyphagia noted; dietary recommendations noted Would consider eval by med oncol as well Continue DEIDRE's Tracheal humidification Would check caloric intake. Nicotine replacement therapy added Continue regimen. Possible feeding tube in the future Electronically signed by: Prosper Dudley MD, DATE/TIME: 06/06/2018 11:44 [facility] Prosper Sierra MD - 06/05/2018 1304 PDTFormatting of this note may be different from the original. 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 She was referred to ENT at which point a bulky laryngeal mass was identified On 06/01/18 the patient underwent tumor debulking, Bx at [facility] in [place] Post operatively the pt abruptly developed airway obstruction and returned to the OR at [facility] time an urgent tracheostomy was performed. The pt was transferred to [facility] ICU for further care. Initially the [...] start XRT in near future Seen by SIDING COREBOARD INSPECTOR eval; some dyphagia noted; dietary recommendations noted Would consider eval by med oncol as well Continue DEIDRE's Tracheal humidification Would check caloric intake. Nicotine replacement therapy added Continue regimen. Electronically signed by: Prosper Dudley MD, DATE/TIME: 06/05/2018 13:04 [facility] HOSPITALIST Prosper Sierra MD - 06/04/2018 1246 PDTFormatting of this note may be different from the original. 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 She was referred to ENT at which point a bulky laryngeal mass was identified On 06/01/18 the patient underwent tumor debulking, Bx at [facility] in [place] Post operatively the pt abruptly developed airway obstruction and returned to the OR at [facility] time an urgent tracheostomy was performed. The pt was transferred to [facility] ICU for further care. Initially the [...] To start XRT in near future Awaiting SIDING COREBOARD INSPECTOR eval altho pt appears to be able to tolerate po now; I am less optimistic abou t PO intake once XRT begins at which point pt may required feeding tube Would consider eval by med oncol as well Continue DEIDRE's Tracheal humidification Would check caloric intake. Nicotine replacement therapy added Check labs in AM Electronically signed by: Prosper Dudley MD, DATE/TIME: 06/04/2018 12:46 [facility] HOSPITALIST Heide Abdullahi RN - 06/02/2018 1638 PDTPt transferred down from ICU. Alert and able to mouth need or uses paper to communicate. TV NEWS DIRECTOR reported th at she did try to [...] + | [facility] | [address] | [place] | [phone] | | [facility] | | [address] | | | - LABORATORY | | | | + + + + + | [facility] | [address] | [place] | | | [facility] | | [address] | | | - LABORATORY | | | | + + + + + Phosphorus (06/06/2018605) + +-------+ + + | Component | Value | Ref Range | Performed At | + +-------+ + + | PHOSPHORUS | 3.5 | 2.5 - 4.6 mg/dL | [facility] | | | | | [facility] | | | | | [...] + | [facility] | [address] | [place] | [phone] | | [facility] | | [address] | | | - LABORATORY | | | | + + + + + | [facility] | [address] | [place] | | | [facility] | | [address] | | | - LABORATORY | | [...] + | [facility] | [address] | [place] | [phone] | | [facility] | | [address] | | | - LABORATORY | | | | + + + + + | [facility] | [address] | [place] | | | [facility] | | [address] | | | - LABORATORY | | | | + + + + + CBC no Differential (06/06/2018605) + +-------+ + + | Component | Value | Ref Range | Performed At | + +-------+ + + | WBC | 6.8 | 4.0 - 11.0 K/uL | [facility] | | | | | [facility] | | | | | [...] + | [facility] | [address] | [place], [place] | [phone] | | [facility] | | [address] | | | - LABORATORY | | | | + + + + + | [facility] | [address] | [place], [place] | | | [facility] | | [address] | | | - LABORATORY | | [...] 0.60 | 0.60 - 1.30 mg/dL | [facility] | | Serum/Plasma | | | [facility] | | | | | CENTER - | | | | | LABORATORY | + + + + + | eGFR if not | >60Comment: GLOMERULAR | >=60 mL/min/1.73m2 | [facility] | | TRINIDADIAN | FILTRATION | | [facility] | | | RATE,ESTIMATED mL/min | | CENTER - | | | /1.11u9Ruxt than 60 | | LABORATORY | | [...] 8.9 | 8.3 - 10.5 mg/dL | [facility] | | | | | [facility] | | | | | CENTER - | | | | | LABORATORY | + + + + + | [facility] | 18.3 | | [facility] | | | | | [facility] | | | | | [...] [address] | [place] | [phone] | | [facility] | | [address] | | | - LABORATORY | | | | + + + + + | [facility] | [address] | [place], [place] | | | [facility] | | [address] | | | - LABORATORY | | | | + + + + + Culture, MRSA (06/01/2018 7989) + + + + + | Component | Value | Ref Range | Performed At | + + + + + | Culture | Negative for MRSA by | | [facility] | | | chromogenic agar method | | [facility] | | | | | [...] + | [facility] | [address] | [place] | [phone] | | [facility] | | [address] | | | - LABORATORY | | | | + + + + + | [facility] | [address] | [place], [place] | | | [facility] | | [address] | | | - LABORATORY | | [...] | | | First dose on [facility] 06/10/18 at 1045 | | [...]
--- OUTSIDE RECORDS SUMMARY | ~2018-06-16 | XMS | Encounter Summary ---
Demographics + + + | Address | [address] | | | [place] [address] | + + + | Home Phone [...] | Author | [facility] | | | and Mikeana | + + + | Organization | [facility] | [...] Team Providers + +------+ + | Care Traveling Repair Accountant Name | Role | Phone | + +------+ + | Yeyo Anderson DO | PCP | | + +------+ + Encounter Details +--------+ + + + + | Date | Type | Department | Care Team | Description | +--------+ + + + + | 06/10/ | [facility] | [facility] | Lida Garcia | | | 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 | MED CTR ACUTE | D, PT [address] | | | | | PHYSICAL THERAPY | [place] | | | | | [address] [place] | [address] | | | | | [place] [address] | | | | | | [phone] | | | +--------+ + + + [...] | | ([facility]), Status post | | | | | | | emergency | | | | | | | tracheotomy for | | | | | | | assistance in | | | | | | | breathing ([facility]), | | | | | | | Chronic obstructive | | | | | | | pulmonary disease, | | | | | | | unspecified COPD | | | | | | | type ([facility]) | | | | | | + [...]
--- OUTSIDE RECORDS SUMMARY | ~2018-06-16 | XMS | Clinical Summary ---
Demographics + + + | Address | [address] | | | [place] [address] | + + + | Home Phone [...] + | Author | [facility] | | | and Mikeana | + + + | Organization | [facility] | | | and [...] Team Providers + +------+ + | Care Apartment Maintenance Manager Name | Role | Phone | [...] [place]) | | | | | | | [...] | Encounter | | MD | management ([facility]) | | | | | | (Primary Dx); | | 06/10/ | | | | Bilateral foot pain; | | 2017 | | | | Right leg pain; | | | | | | Laryngeal carcinoma | | | | | | ([facility]); Status post | | | | | | emergency | | | | | | tracheotomy for | | | | | | assistance in | | | | | | breathing ([facility]); | | | | | | Chronic obstructive | | | | | | pulmonary disease, | | | | | | unspecified COPD | | | | | | type ([facility]); Smoker; | | | | | | 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 | | | Spreckels | | | evaluated | | | [...] | go home, | | | Passy [place] | | | valve | | | [...] | | with Dr. | | | Spreckels S | | | moker/COPD: | | [...] | | re-check--i | | | n [place] | | | | | | officeConta | | | ct | | | information | | | :[address] | | [address], [place] | | | [address] | | | [place] | | | [phone] | | | [address] | | | [...] | | | 10:44 | | | [place] | | | [facility] | | [...] + | [facility] | [address] | [place], [place] | [phone] | | [facility] | | [address] | | | - LABORATORY | | | | + + + + + | [facility] | [address] | [place], [place] | | | [facility] | | [address] | | | - LABORATORY | | [...] + | [facility] | [address] | [place] | [phone] | | [facility] | | [address] | | | - LABORATORY | | | | + + + + + | [facility] | [address] | [place] | | | [facility] | | [address] | | | - LABORATORY | | [...] + | [facility] | [address] | [place] | [phone] | | [facility] | | [address] | | | - LABORATORY | | | | + + + + + | [facility] | [address] | [place] | | | [facility] | | [address] | | | - LABORATORY | | [...] + | [facility] | [address] | [place], [place] | [phone] | | [facility] | | [address] | | | - LABORATORY | | | | + + + + + | [facility] | [address] | [place], [place] | | | [facility] | | [address] | | | - LABORATORY | | [...] 11 | 7 - 18 mg/dL | [facility] | | | | | [facility] | | | | | CENTER - | | | | | LABORATORY | + + + + + | Creatinine, | 0.60 | 0.60 - 1.30 mg/dL | [facility] | | Serum/Plasma | | | [facility] | | | | | CENTER - | | | | | LABORATORY | + + + + + | eGFR if not | >60Comment: GLOMERULAR | >=60 mL/min/1.73m2 | [facility] | | [place] | FILTRATION | | [facility] | | | RATE,ESTIMATED mL/min | | CENTER - | | | /1.60p9Vfvs than 60 | | LABORATORY | | [...] + | [facility] | [address] | [place] | [phone] | | [facility] | | [address] | | | - LABORATORY | | | | + + + + + | [facility] | [address] | [place] | | | [facility] | | [address] | | | - LABORATORY | | | | + + + + + Culture, MRSA (06/01/20181658) + + + + + | Component | Value | Ref Range | Performed At | + + + + + | Culture | Negative for MRSA by | | [facility] | | | chromogenic agar method | | [facility] [...] + | [facility] | [address] | [place], [place] | [phone] | | [facility] | | [address] | | | - LABORATORY | | | | + + + + + | [facility] | [address] | [place], [place] | | | [facility] | | [address] | | | - LABORATORY | | [...] +--------+ +---------+ | MEDICARE | MEDICA | [id number] | Medica | [phone] | | [...] Self [birth year] Home: | [address] | | [place] | al/Fam | | 1956 | [phone] [place] [address] | | | emerita | | | [address] | | + +--------+ +--------+ + +
--- OUTSIDE RECORDS SUMMARY | ~2018-06-16 | XMS | Encounter Summary ---
Demographics + + + | Address | [address] | | | [place] [address] | + + + | Home Phone | | + + + | Preferred Language | Unknown | + + + | Marital Status | Single | + + + | Yazidi Affiliation | Unknown | + + + | Race | Unknown | + + + | Ethnic Group | Unknown | + + + Author + + + | Author | [facility] | | | and [place] | + + + | Organization | [facility] | | | and [...] Team Providers + +------+ + | Care Cable Engineer Outside Plant Name | Role | Phone | + +------+ + | Yeyo Anderson DO | PCP | | + +------+ + Encounter Details +--------+ + + + + | Date | Type | Department | Care Team | Description | +--------+ + + + + | 06/10/ | [facility] | [facility] | Lida Garcia | | | 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 | MED CTR ACUTE | D, PT [address] | | | | | PHYSICAL THERAPY | [place] | | | | | [address] [place] | [address] | | | | | [place] [address] | | | | | | [phone] | | | +--------+ + + + [...]
--- OUTSIDE RECORDS SUMMARY | ~2018-06-16 | XMS | Clinical Summary ---
Demographics + + + | Address | [address] | | | [place] [address] | + + + | Home Phone [...] Author | [facility] | | | and Mikeana | + + + | Organization | [facility] | | | and [...] Team Providers + +------+ + | Care Plant Culture Manager Name | Role | Phone | [...] [facility]) | | | | | | | [...] | Encounter | | MD | management ([facility]) | | | | | | (Primary Dx); | | 06/10/ | | | | Bilateral foot pain; | | 2017 | | | | Right leg pain; | | | | | | Laryngeal carcinoma | | | | | | ([facility]); Status post | | | | | | emergency | | | | | | tracheotomy for | | | | | | assistance in | | | | | | breathing ([facility]); | | | | | | Chronic obstructive | | | | | | pulmonary disease, | | | | | | unspecified COPD | | | | | | type ([facility]); Smoker; | | | | | | 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 | | | [place] | | | evaluated | | | [...] | go home, | | | [place] | | | valve | | | [...] | | with Dr. | | | [place] | | | moker/COPD: | | [...] | | re-check--i | | | n [place] | | | | | | officeConta | | | ct | | | information | | | :[address] | | [address], [place] | | | [address] | | | [place] | | | [phone] | | | [phone] | | | [...] | | | 10:44 | | | [place] | | | [facility] | | [...] + | [facility] | [address] | [place], [place] | [phone] | | [facility] | | [address] | | | - LABORATORY | | | | + + + + + | [facility] | [address] | [place], [place] | | | [facility] | | [address] | | | - LABORATORY | | | | + + + + + Phosphorus (06/06/2018605) + +-------+ + + | Component | Value | Ref Range | Performed At | + +-------+ + + | PHOSPHORUS | 3.5 | 2.5 - 4.6 mg/dL | [facility] | | | | | [facility] | | | | | [...] + | [facility] | [address] | [place] | [phone] | | [facility] | | [address] | | | - LABORATORY | | | | + + + + + | [facility] | [address] | [place] | | | [facility] | | [address] | | | - LABORATORY | | [...] + | [facility] | [address] | [place] | [phone] | | [facility] | | [address] | | | - LABORATORY | | | | + + + + + | [facility] | [address] | [place] | | | [facility] | | [address] | | | - LABORATORY | | | | + + + + + Calcium, Ionized (06/06/2018605) + + + + + | Component | Value | Ref Range | Performed At | + + + + + | Ionized Calcium | 5.68 (H) | 4.48 - 5.28 mg/dL | [facility] | | | | | [facility] | | | | | [...] + | [facility] | [address] | [place], [place] | [phone] | | [facility] | | [address] | | | - LABORATORY | | | | + + + + + | [facility] | [address] | [place], [place] | | | [facility] | | [address] | | | - LABORATORY | | [...] 11 | 7 - 18 mg/dL | [facility] | | | | | [facility] | | | | | CENTER - | | | | | LABORATORY | + + + + + | Creatinine, | 0.60 | 0.60 - 1.30 mg/dL | [facility] | | Serum/Plasma | | | [facility] | | | | | CENTER - | | | | | LABORATORY | + + + + + | eGFR if not | >60Comment: GLOMERULAR | >=60 mL/min/1.73m2 | [facility] | | MALDIVIAN | FILTRATION | | [facility] | | | RATE,ESTIMATED mL/min | | CENTER - | | | /1.63o9Cuvk than 60 | | LABORATORY | | [...] + | [facility] | [address] | [place] | [phone] | | [facility] | | [address] | | | - LABORATORY | | | | + + + + + | [facility] | [address] | [place] | | | [facility] | | [address] | | | - LABORATORY | | | | + + + + + Culture, MRSA (06/01/20181658) + + + + + | Component | Value | Ref Range | Performed At | + + + + + | Culture | Negative for MRSA by | | [facility] | | | chromogenic agar method | | [facility] | | | | | [...] + | [facility] | [address] | [place], [place] | [phone] | | [facility] | | [address] | | | - LABORATORY | | | | + + + + + | [facility] | [address] | [place], [place] | | | [facility] | | [address] | | | - LABORATORY | | [...] +--------+ +---------+ | MEDICARE | MEDICA | [id number] | Medica | [phone] | | [...] Self [birth year] Home: | [address] | | [place] | al/Fam | | [phone] | [phone] [place] [address] | | | emerita | | | [phone] | | + +--------+ +--------+ + +
--- NOTE | 2018-06-17 04:05 | NUR ---
PT ARRIVES TO ROOM 129 FOR ICU OBSERVATION, TRANSFERRED TO BED WITH PURPLE SLIDER, PT SLEEPY BUT AROUSABLE. VSS, HR 60'S SR, BP120/70, AFEBRILE, SPO2 95% ON ROOM AIR WITH RR 20. RT IN TO SET UP O2 TRACH EQUIPMENT IF NEEDED.
[2018-06-17] MEDS ORDERED: HYDROCODON-ACE1 EA10 PO (04:20)
--- NOTE | 2018-06-17 06:15 | NUR ---
PT CONT TO SLEEP, VSS, RESP EVEN AND UNLABORED.
--- NOTE | 2018-06-17 08:48 | NUR ---
IV SITE INTACT, NO REDNESS OR SWELLING NOTED, PT DENIES PAIN WITH FLUID INFUSION. PT ALERT AND ORIENTED X4. PT COOPERATIVE AND POLITE. AMBULATED INDEPENDENTLY TO THE BATHROOM. PT DENIES PAIN, NAUSEA, AND SOB AT THIS TIME. PT SITTING UP IN BED WATCHING TV AND EATING BREAKFAST. PT WORKED WELL WITH [facility].
--- NOTE | 2018-06-17 11:40 | NUR ---
BROTHER OF JOBY-EVELINA SINGH IS HERE, ISAURA STOCKTON HAS BEEN NOTIFIED.
--- NOTE | 2018-06-17 12:15 | NUR ---
CARE CONFERENCE ATTENDEES: PT AND HER BROTHER QUINCY STAFF: DR SOSA, MYSELF CASE MANAGEMENT, KACY RN (PT RN), SCOTT FROM RT. DR SOSA DISCUSSED WITH PT AND HER BROTHER THE POSS RAMIFICATIONS OF WHAT IS LIKELY TO HAPPEN TO THE PT IF SHE WERE TO GO HOME ALONE WITH NO ONE THERE TO HELP IF HER TRACH PLUGGED. QUINCY STATES HE WILL NOT BE AVAILABLE UNTIL LATE THURSDAY NIGHT. PT CONT TO INSIST SHE WILL BE FINE AT HOME AND INSISTS ON RETURNING HOME. DR SOSA ADVISES AGAINST THIS. PT CONT TO INSIST THAT SHE IS LEAVING TODAY.
[2018-06-17] MEDS ORDERED: NICOTINE PATCH1 EAC1 TD (13:05)
[2018-06-17] MEDS ORDERED: DIAZEPAM5 MG PO (13:05)
[2018-06-17] MEDS ORDERED: ALBUTEROL2.5 MG/3 M INH (13:06)
--- NOTE | 2018-06-17 13:07 | NUR ---
MED REC COMPLETE
--- NOTE | 2018-06-17 13:08 | NUR ---
CARE CONFHECTOR COMPLETED, , EVARISTO PAGE FROM [facility], THIS RN, THE PT AND THE PT'S BROTHER ALL IN ATTENDENCE. DISCUSSED PLAN OF CARE AND PLAN FOR PT DISCHARGE TO HOME SOMETIME IN THE NEXT FEW DAYS. PT WOULD PREFER TO GO HOME TODAY. PT SAFETY DISCUSSED AT LENGTH WITH ENTIRE TEAM, PT FEELS SHE WILL BE SAFE ON HER OWN AT HOME, THE REST OF THE CARE TEAM DISAGREE. PT WILLING TO CONSIDER THE IDEA OF GOING HOME ONLY WITH APPROPRIATE SUPPORT. PT TEARFUL DURING SOME TIMES. PT ABLE TO AMBULATE TO THE TOILET INDEPENDENTLY.
--- NOTE | 2018-06-17 13:21 | NUR ---
PT WILLING TO GET INTO THE SHOWER AFTER LUNCH. PT ABLE TO EAT 50% OF LUNCH.
--- NOTE | 2018-06-17 13:32 | NUR ---
PT DECIDED TO TAKE A NAP AFTER LUNCH, WILL SHOWER AFTER NAP.
--- NOTE | 2018-06-17 17:17 | NUR ---
IV SITE REDRESSED, FLUSHES WELL, PT DENIES PAIN AT SITE. PT BACK TO BED FROM SHOWER. TRACH REDRESSED WITH NEW GAUZE AND COLLAR. PT VITALS WNL AT THIS TIME. PT DENIES NAUSEA, SOB, AND PAIN AT THIS TIME. PT ORDERED DINNER, SITTING UP IN BED WATCHING TV. PT ALERT AND ORIENTED X4, COOPERATIVE AND POLITE.
--- NOTE | 2018-06-17 18:32 | NUR ---
PT SITTING UP IN BED EATING DINNER, VISITING WITH FAMILY AT THE BEDSIDE. PT DENIES ANY NEEDS AT THIS TIME.
--- NOTE | 2018-06-17 19:35 | NUR ---
RT IN ROOM TO PROVIDE ADDITIONAL INSTRUCTIONS AND REINFORCE TRACH CARE, ANSWERING QUESTIONS. PTS FAMILY ALSO IN ROOM.
--- NOTE | 2018-06-17 20:00 | NUR ---
PTS SIGNIFICANT OTHER GAURAV IN TO GO OVER ADDITIONAL TRACH CARE WITH RT, PT AND FAMILY FEEL CAPABLE AND CONFIDENT WITH TRACH CARE AT THIS TIME.
--- NOTE | 2018-06-17 20:33 | NUR ---
PT AND FAMILY MEMBERS WERE GIVEN D/C INSTRUCTIONS AND QUESTIONS ANSWERED. MEDICATION RETURNED TO PT, WELL ALL BELONGINGS, PHONE AND DENTURES. VSS, IV DC'D WITH CATHETER TIP INTACT. PT OUT VIA WC WITH NURSING LAPEL STITCHER TO HOME.
--- NOTE | 2018-06-18 08:58 | EKG ---
[facility] [address] [place] [address] Signed Sinus tachycardia with occasional premature ventricular complexes Abnormal ECG When compared with ECG of 01-JUN-2018 08:42, premature ventricular complexes are now present premature supraventricular complexes Confirmed by MINE SOSA MD ([id number]) on 06/18/2018 8:58:30 AM Electronically Signed By: MINE SOSA MD 06/18/18 0858 PATIENT NAME: STAS VASQUEZDELBERT MILLS Electrocardiogram DATE OF : 55 PHYSICIAN: MINE SOSA MD REPORT #: [id number] REPORT IS CONFIDENTIAL AND NOT TO BE RELEASED WITHOUT AUTHORIZATION
--- NOTE | 2018-06-18 11:00 | NUR ---
[facility] THAT PATIENT WAS DISCHARGED FROM OBSERVATION TO HOME YESTERDAY EVENING. THEY STATE THEY WILL CONTACT PATIENT TO RESUME CARE. SPOKE WITH [facility].
== END 2018-06-17 20:30 | disposition home or self-care (01) ==
LOC: ED 21:54 → CCU 21:55
PROVIDERS: ADMIT Internal Medicine
DX: Z43.0 Encounter for attention to tracheostomy (principal); C32.9 Malignant neoplasm of larynx, unspecified; F17.200 Nicotine dependence, unspecified, uncomplicated; J44.9 Chronic obstructive pulmonary disease, unspecified; R73.03 Prediabetes; Z88.5 Allergy status to narcotic agent; Z79.891 Long term (current) use of opiate analgesic; Z79.899 Other long term (current) drug therapy
CPT/HCPCS: 31720; 71045; 80053; 81001; 83605; 84484; 85025; 93005; 93010; 94640; 96361; 96372; 96374; 99285; G0378; J0696; J1650; J7030

== ENCOUNTER 2018-07-10 08:11 | Emergency (ER) | payer MEDICARE, OTHER ==
[~2018-07-10] VITALS: Ht 154.9 cm; Wt 66.2 kg
--- OUTSIDE RECORDS SUMMARY | ~2018-07-10 | XMS | Encounter Summary ---
Demographics + + + | Address | [address] | | | [place] [address] | + + + | Home Phone | | + + + | Preferred Language | Unknown | + + + | Marital Status | Single | + + + | Confucianist Affiliation | Unknown | + + + | Race | Unknown | + + + | Ethnic Group | Unknown | + + + Author + + + | Author | [facility] | | | and Mikeana | + + + | Organization | [facility] | | | and Mikeana [...] Team Providers + +------+ + | Care Search Engine Optimization Consultant Name | Role | Phone | + +------+ + | Yeyo Anderson DO | PCP | | + +------+ + Reason for Referral (Routine) + +--------+ + + + + | Status | Reason | Specialty | Diagnoses / | Referred By | Referred To | | | | | Procedures | Contact | Contact | + +--------+ + + + + | Pending | | | Diagnoses | Dennis, | | | Review | | | Chronic | Ashkan H, | | | | | | obstructive | MD [address] | | | | | | pulmonary | [address] | | | | | | disease, | [place], | | | | | | unspecified | [place] | | | | | | COPD type | [address] | | | | | | ([facility]) | Phone: | | | | | | Smoker | [phone] | | | | | | Tracheostomy | Fax: | | | | | | , acute | [phone] | | | | | | management | | | | | | | ([facility]) | | | | | | | 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 | | | | | | | ([facility]) | | | | | | | Procedures | | | | | | | DME: | | | | | | | Nebulizer | | | + +--------+ + + + + (Routine) + +--------+ + + + + | Status | Reason | Specialty | Diagnoses / | Referred By | Referred To | | | | | Procedures | Contact | Contact | + +--------+ + + + + | Pending | | | Diagnoses | Dennis, | | | Review | | | | Ashkan H, | | | | | | Tracheostomy | MD [address] | | | | | | , acute | [address] | | | | | | management | [place], | | | | | | ([facility]) | [place] | | | | | | Squamous | [address] | | | | | | cell | Phone: | | | | | | carcinoma of | [phone] | | | | | | larynx | Fax: | | | | | | ([facility]) | [phone] | | | | | | Procedures | | | | | | | DME: Misc | | | | | | | Humidifier | | | | | | | for new | | | | | | | tracheostomy | | | + +--------+ + + + + Evaluate & Treat (Routine) + + + + + + + | Status | Reason | Specialty | Diagnoses / | Referred By | Referred To | | | | | Procedures | Contact | Contact | + + + + + + + | Pending | Specialty | Home Health | Diagnoses | Dennis, | | | Review | Services | Services | Chronic | Ashkan Espinosa, | | | | Required | | obstructive | MD [address] | | | | | | pulmonary | [address] | | | | | | disease, | [place], | | | | | | unspecified | [place] | | | | | | COPD type | [address] | | | | | | ([facility]) | Phone: | | | | | | Smoker | [phone] | | | | | | Tracheostomy | Fax: | | | | | | , acute | [phone] | | | | | | management | | | | | | | ([facility]) | | | | | | | 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 | | | | | | | ([facility]) | | | + + + + + + + Evaluate & Treat (Routine) + + + + + + + | Status | Reason | Specialty | Diagnoses / | Referred By | Referred To | | | | | Procedures | Contact | Contact | + + + + + + + | Pending | Specialty | Home Health | Diagnoses | Donny, | | | Review | Services | Services | Bilateral | Ac Warner MD | | | | Required | | foot pain | [address] | | | | | Right leg | [address], [address] | | | | | | pain | [place], | | | | | | | [place] [address] | | | | | | | Phone: | | | | | | | [phone] | | | | | | | Fax: | | | | | | | [phone] | | + + + + + + + Reason for Visit Auth/Cert +--------+--------+ + + + + | Status | Reason | Specialty | Diagnoses / | Referred By | Referred To | | | | | Procedures | Contact | Contact | +--------+--------+ + + + + | | | | Diagnoses | | | | | | | New trach | | | +--------+--------+ + + + + Encounter Details +--------+ + + + + | Date | Type | Department | Care Team | Description | +--------+ + + + + | 06/01/ | Hospital | [facility] | Ac Hines, | Tracheostomy, acute | | 2018 - | Encounter | [facility] | MD [address], | management ([facility]) | | | | [address] [place] | [address] [place], | (Primary Dx); | | 06/10/ | | [place] [address] | [place] [address] | Bilateral foot pain; | | 2018 | | [phone] | [phone] | Right leg pain; | | | | | | Laryngeal carcinoma | | | | | | ([facility]); Status post | | | | | | emergency | | | | | | tracheotomy for | | | | | | assistance in | | | | | | breathing ([facility]); | | | | | | Chronic obstructive | | | | | | pulmonary disease, | | | | | | unspecified COPD | | | | | | type ([facility]); Smoker; | | | | | | Squamous cell | | | | | | carcinoma of larynx | | | | | | (HCC) | +--------+ + + + + Social History + + + +--------+------+ | Tobacco Use | Types | Packs/Day | Years | Date | | | | | Used | | + + + +--------+------+ | Current Every Day | Cigarettes | 2 | | | | Smoker | | | | | + + + +--------+------+ + +---+---+---+ | Smokeless Tobacco: | | | | | Never Used | | | | + +---+---+---+ + + +---------+ + | Alcohol Use | Drinks/We | oz/Week | Comments | | | ek | | | + + +---------+ + | No | | | | + + +---------+ + + + + | Sex Assigned at | Date Recorded | | | | + + + | Not on file | | + + + as of this encounter Last Filed Vital Signs + + + + | Vital Sign | Reading | Time Taken | + + + + | Blood Pressure | 106/53 | 06/10/20181209 PDT | + + + + | Pulse | 90 | 06/10/20181209 PDT | + + + + | Temperature | 36.4 C (97.5 F) | 06/10/20181209 PDT | + + + + | Respiratory Rate | 18 | 06/10/20181209 PDT | + + + + | Oxygen Saturation | 92% | 06/10/20181209 PDT | + + + + | Inhaled Oxygen | - | - | | Concentration | | | + + + + | Weight | 63.7 kg (140 lb 6.9 | 06/02/2018244 PDT | | | oz) | | + + + + | Height | 154.9 cm (5' 1") | 06/01/20181648 PDT | + + + + | Body Mass Index | 26.53 | 06/02/2018244 PDT | + + + + in this encounter Discharge Summaries Ashkan Dennis MD - 06/10/2018 1044 PDTFormatting of this note may be different from th e original. DISCHARGE SUMMARY Patient Name: Crystal Sadler : 1955 Date of Admission: 06/01/2018 Date of Discharge: 06/10/18 Admitting Physician: Ac Hines MD Discharging Physician: Ashkan Dennis MD Primary Care Provider: Yeyo Anderson DO Discharge Diagnoses: Principal Problem: Squamous cell carcinoma of larynx Active Problems: Smoker Tracheostomy, acute management Resolved Problems: * No resolved hospital problems. * Patient Active Problem List Diagnosis Bilateral foot pain Right leg pain Squamous cell carcinoma of larynx Smoker Tracheostomy, acute management Consultants: Dr. Hines of ENT/speech therapy/physical therapy Procedures: No new imaging here No results found. Labs in the last 24 hours: No results found for this or any previous visit (from the past 24 hour(s)). Reason for Admission: Please refer to the H&P for full details. In short, this is a 62 y.o. female with a histor y of smoking, recently diagnosed laryngeal carcinoma who recently required tracheostomy afte r laryngeal carcinoma debulking surgery, admitted for management of new trach. Problem-Oriented Hospital Course: Squamous cell carcinoma of larynx/management of new tracheostomy: - S/p debulking surgery and trach placement at [facility], transferred to [facility] for acut e care - Admitted for management of new trach - Dr. Hines evaluated 06/08 and 06/09, placed #4 uncuffed trach tube, no acute issues with tracheostomy, just needs training, - Does not need oxygen at this time - Pain controlled despite titrating down oxycodone - Does well walking the floors, doing well with ADL's, seems to be okay to go home, Tony Warner uir valve provided, discharged home 06/10 with trach supplies, home health ST/PT/nursing - Eating/drinking well, no aspiration, stopped IVF - Needs to be presented at tumor board for management of laryngeal cancer, follow up with Jairon Hines Smoker/COPD: - Nicotine patch - Did not require oxygen at discharge, no acute lung problems, but did order nebs for chron ic COPD at discharge Constipation: - Encouraged aggressive bowel regimen while using opiates Code Status: Full Code Disposition: Home with home health Discharge Condition: Stable, alert, oriented, and cooperative, walking the halls without problem Trach tube in place with clean wound Lungs somewhat diminished throughout, no crackles or wheezes Abd soft, NT Ext WWP without edema Follow-up Information Ac Hines MD In 5 days. Specialty: Otolaryngology Why: For wound re-check--in [place] office Contact information: [address], [address] [facility] [address] Discharge Medications New Medications Details Commode Bedside Misc 1 Application by Does not apply route as needed. Cool Mist Humidifier 1 gallon Misc 1 applicator by Does not apply route as needed. docusate sodium 100 MG capsule Take 100 mg by mouth 2 times daily. aka: COLACE HYDROcodone-acetaminophen 5-325 mg per tablet Take 1-2 tablets by mouth every 4 hours as needed. aka: NORCO nicotine 21 mg/[address] 1 patch onto the skin Daily. aka: NICODERM polyethylene glycol packet Take 1 diluted packet by mouth Daily. aka: MIRALAX senna 8.6 mg tablet Take 1 tablet by mouth 2 times daily (before meals). aka: SENOKOT Studies With Pending Results: None Greater than 30 minutes were spent on discharge and coordination of post-hospital care. Electronically signed by: Ashkan Dennis MD, 06/10/2018 10:44 [facility] in this encounter Discharge Instructions Ashkan Dennis MD - 06/10/2018You were admitted with new tracheostomy after surgery for laryngeal mass. You will need home health at home, and we are working with the [facility] to supply home tracheostomy care needs. Please follow up with Dr. Hines to jairon iglesias the tracheostomy and treatment for the laryngeal mass. The following attachments cannot be sent through Care Everywhere.Care, Tracheostomy (Englis h)Caring for Your Tracheostomy Tube and Stoma, Discharge Instructions (Sammarinese)Tracheostomy Care (Sammarinese)Tracheostomy Tube or Stoma: Your New Airway (Sammarinese)Tracheostomy Tube, Adjust ing to Your (Sammarinese)Tracheostomy Tube, Your, Answers to Common Questions About (Sammarinese)Tra cheostomy Tube, Your: Learning How to Communicate (Sammarinese)Tracheostomy Tube, Your: Tips for Eating (Sammarinese)Tracheostomy, Cleaning Your (Sammarinese)Tracheostomy, Suctioning Your (Sammarinese )Tracheostomy, What Is (Sammarinese)in this encounter Medications at Time of Discharge [...] | | | | | | | ([facility]), Status post | | | | | | | emergency | | | | | | | tracheotomy for | | | | | | | assistance in | | | | | | | breathing ([facility]), | | | | | | | Chronic obstructive | | | | | | | pulmonary disease, | | | | | | | unspecified COPD | | | | | | | type ([facility]) | | | | | | + + + +---------+ + + | | Take 3 mLs by | 90 mL | 0 | 06/10/20 | | | albuterol-ipratropiu | nebulization 3 times | | | 18 | 8 | | m 2.5-0.5 mg/3 mL | daily. | | | | | | SOLN | | | | | | + + + +---------+ + + | docusate sodium | Take 100 mg by mouth | 60 | 0 | 06/10/20 | | | (COLACE) 100 MG | 2 times daily. | capsule | | 18 | 8 | | capsule | | | | | | + + + +---------+ + + | nicotine | Place 1 patch onto | 30 | 0 | 06/11/20 | | | (NICODERM) 21 mg/24 | the skin Daily. | patch | | 18 | 8 | | hr | | | | | | + + + +---------+ + + | polyethylene | Take 1 diluted | | 0 | 06/10/20 | | | glycol (MIRALAX) | packet by mouth | | | 18 | 8 | | packet | Daily. | | | | | + + + +---------+ + + | senna (SENOKOT) | Take 1 tablet by | 120 | | 06/10/20 | | | 8.6 mg tablet | mouth 2 times daily | tablet | | 18 | 8 | | | (before meals). | | | | | + + + +---------+ + + | VENTOLIN HFA 108 | Inhale 2 puffs into | | 0 | 05/06/20 | | | (90 Base) MCG/ACT | the lungs EVERY 4 TO | | | 18 | 8 | | inhaler | 6 HOURS NEEDED. | | | | | + + + +---------+ + + as of this encounter Progress Notes Ashkan Dennis MD - 06/09/2018 2707 PDTFormatting of this note may be different from karine lazar. [facility] Hospitalist Progress Note Crystal Sadler is a 62 y.o. female SUBJECTIVE: Says pain is controlled. No acute shortness of breath, no cough. Able to talk by coveri ng her trach. Eating well, no choking or cough. Wants to go home. VITALS: Temp: 37 C (98.6 F), Pulse: 65, Resp: 20, BP: 130/63, SpO2 94 % on room air, continuous aerosol, tracheostomy collar Temp Min: 36.7 C (98.1 F) Max: 37.4 C (99.3 F) Weight: 64.5 kg (142 lb 3.2 oz) Intake/Output Summary (Last 24 hours) at 06/09/18 1720 Last data filed at 06/09/18 0800 Gross per 24 hour Intake 544 ml Output 50 ml Net 494 ml PHYSICAL EXAM: General: Alert, pleasant, appropriate, no distress Cardiovascular: RRR Respiratory: CTA bilaterally, trach in place without erythema, minimal drainage, no tender ness Abdomen: Soft, NT Extremities: WWP Neurological: Alert, appropriate, able to verbalize by covering her trach Xavier catheter present: No DIAGNOSTIC STUDIES: Available data and images were reviewed personally. Significant results and findings are a ddressed here or in the Assessment and Plan. No results found for this or any previous visit (from the past 24 hour(s)). No results found. ASSESSMENT and PLAN: Active Hospital Problems Diagnosis Tracheostomy, acute management *Squamous cell carcinoma of larynx Smoker Resolved Hospital Problems Diagnosis Date Noted Date Resolved No resolved problems to display. Squamous cell carcinoma of larynx/management of new tracheostomy: - S/p debulking surgery and trach placement - Dr. Hines evaluated yesterday and today, no acute issues with tracheostomy, just needs training - Does not need oxygen at this time - Pain controlled despite titrating down oxycodone - Does well walking the floors, doing well with ADL's, seems to be okay to go home, asked s [facility] therapy to provide her with Passy Samantha valve to help her talk better, preliminary plan to go home 06/10 - Eating/drinking well, stopped IVF - Duoneb scheduled, albuterol PRN Smoker: - Nicotine patch Disposition : Home with home health Prophylaxis : SCD's/walking Current Facility-Administered Medications: albuterol 2.5 mg Nebulization RT Q4H PRN albuterol-ipratropium 3 mL Nebulization QIDWA aluminum & magnesium hydroxide-simethicone 30 mL Oral Q2H PRN nicotine 1 patch Transdermal Daily oxyCODONE 5 mg Oral Q4H PRN Total time of approximately 25 minutes was spent with the patient and/or patient's family, and/or on the patient's floor/unit, of which more than 50% was spent counseling and/or coord ination the patient's care as outlined above. Ashkan Dennis 06/09/2018 17:20 [facility] Tiffani King, OPTICAL MANAGER - 06/09/2018 0913 PDTPt is sleeping will return for trach care and suctioning when she Wakes up or her nurse calls. BS are clear but diminished SpO2 On RA is 92%, 98% on 5 lpm oxygen driven neb tx.Ac Hines MD - 06/09/2018 0759 PDTPt stable and awaiting placement. Path still pending. I' ll see her in office in next weekMarlena Diaz, OPTICAL MANAGER - 06/09/2018 0129 PDTPatient trach w as exchanged to a cuffless non-fenestrated #4 Shiley. She did have a fenestrated trach, martinez deya once patient coughed it out it was replaced. Per Dr. Hines (he prefers nonfenestrated ) The fenestrated 4 Shiley is still in the patient room, if needed. Ac Hines MD - 06/08/2018 1854 PDTTrach tube changed to #4 uncuffed. Good airway but should be left unplug ged. Planning transfer soon. Path pending. Presenting at tumor board in am if path is done Janee Cornell, OPTICAL MANAGER - 06/08/2018 0956 PDTAt 0730 this morning I went in to check on the pat ient and noticed the smell of putrifying flesh. I saw that her original trach mesh, placed o n the day of her surgery was still in place. On the day of her surgery I spoke to Dr. Annie pierson at the patient's bedside in the ICU and he stated that the dressing should remain in plac e for 4-5 days. This morning I reported my findings of the smell of her stoma to Dr. Dennis and to the [facility] tea and spice supervisor. At 9:14 I received a call from Dr. Hines, asking me to please go in and pull the dressin g. He asked me to pull a size 4 Shiley, uncuffed, unfenestrated and put it in the patient's room, that he will be in tomorrow, the , to change her from a 6 to a 4. I approached my Director, asking if I'm free to do this, and he instructed me not to. I concur with my Director, and I am not comfortable with assessing a purulent wound that larry s gone 8 days without ENT assessment. Electronically signed by: Janee Cornell, OPTICAL MANAGER 8 10:09 Ashkan Dennis MD - 06/08/2018 0842 PDTFormatting of this note may be different from karine lazar. [facility] PM Hospitalist Progress Note Crystal Sadler is a 62 y.o. female SUBJECTIVE: No acute complaints. Reports she is eating and drinking well without coughing/aspiration . Hoping she can get off IV fluids. Wants to go home, but doesn't feel it's safe currently because she doesn't know how to take care of trach. VITALS: Temp: 36.7 C (98.1 F), Pulse: 59, Resp: 16, BP: 113/58, SpO2 97 % on tracheostomy colla r, continuous aerosol Temp Min: 36.2 C (97.2 F) Max: 36.9 C (98.4 F) Weight: 64.5 kg (142 lb 3.2 oz) Intake/Output Summary (Last 24 hours) at 06/08/18 0851 Last data filed at 06/08/18 0551 Gross per 24 hour Intake 1586 ml Output 350 ml Net 1236 ml PHYSICAL EXAM: General: Alert, no acute distress Cardiovascular: RRR, no m/r/g Respiratory: Some crackles in bases, mildly diminished BS throughout, trach in place with gauze sutured in Abdomen: Soft, NT Extremities: WWP, no significant edema Neurological: Alert, pleasant, appropriate, able to write appropriately Xavier catheter present: No DIAGNOSTIC STUDIES: Available data and images were reviewed personally. Significant results and findings are a ddressed here or in the Assessment and Plan. No results found for this or any previous visit (from the past 24 hour(s)). No results found. ASSESSMENT and PLAN: Active Hospital Problems Diagnosis *Squamous cell carcinoma of larynx Smoker Resolved Hospital Problems Diagnosis Date Noted Date Resolved No resolved problems to display. Squamous cell carcinoma of larynx: - S/p debulking surgery and trach placement - ENT to see today to evaluate trach/dressing, discussed with Dr. Hines who is in [facility], will discuss with Dr. Chavira today - Home oxygen evaluation today, unclear if she actually needs oxygen - Still using 50 mg oxycodone daily, will try to titrate down now that it has been a week s danni surgery - Consider placement in SNF, given that she lives alone at home, does not feel capable of t aking care of new trach - Eating/drinking adequately today, stop IVF - Duoneb scheduled, albuterol PRN Smoker: - Nicotine patch Disposition : Work with case management Prophylaxis : SCD's Current Facility-Administered Medications: albuterol 2.5 mg Nebulization RT Q4H PRN albuterol-ipratropium 3 mL Nebulization QIDWA aluminum & magnesium hydroxide-simethicone 30 mL Oral Q2H PRN nicotine 1 patch Transdermal Daily oxyCODONE 5 mg Oral Q4H PRN Total time of approximately 25 minutes was spent with the patient and/or patient's family, and/or on the patient's floor/unit, of which more than 50% was spent counseling and/or coord ination the patient's care as outlined above. Ashkan Dennis 06/08/2018 8:51 [facility] Prosper Dudley MD - 06/07/2018 1258 PDTFormatting of this note may be different from karine kingston original. 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 She was referred to ENT at which point a bulky laryngeal mass was identified On 06/01/18 the patient underwent tumor debulking, Bx at [facility] in [place], [place] Post operatively the pt abruptly developed airway obstruction and returned to the OR at [facility] time an urgent tracheostomy was performed. The pt was then transferred to [facility] ICU for further care. Initially the pt was experiencing considerable coughing, oozing of blood, plugging of trach eotomy tube inner cannula but with humidification and cleaning of the inner cannula, her res p status improved. She was transferred to the gen surgical floor in anticipation of d/c to home in the AM Our service was asked to assist with d/c planning Unfortunately the pt lives alone, will have no assistance with management of her new trach. Therefore arrangements now being made for temporary admission to skilled facility for tra h training, PT. She is awake, alert and appears comfortable today She is able to communicate by writing She is agreeable to temporary placement at a SNF for trach tube training Per d/w Dr Hines he will plan to place shiley non-cuffed trach soon XRT in the future; ?oncology referral? Reportedly doing well with po now but may require TF in the future during radiation should she develop severe odynophagia No new problems reported overnight OBJECTIVE DATA VITAL SIGNS: BP 126/64 | Pulse 82 | Temp 36.9 C (98.4 F) (Oral) | Resp 18 | Ht 1.54 9 m (5' 1") | Wt 63.7 kg (140 lb 6.9 oz) | SpO2 98% Comment: Resting quietly in bed. | BMI 26.53 kg/m Vital sign ranges for last 24hrs: Input and output for last 24hrs: Temp: [36.2 C (97.2 F)-37.6 C (99.7 F)] 36.9 C (98.4 F) Pulse: [62-82] 82 Resp: [15-20] 18 BP: (114-140)/(56-64) 126/64 SpO2 Av.5 % Min: 89 % Max: 98 % Flow (L/min) Av.8 Min: 6 Max: 8 06/05 1901 - 06/07 0700 In: 2216 [P.O.:1000; I.V.:1216] Out: 900 [Urine:900] Admit Weight: Weight: 64.5 kg (142 lb 3.2 oz) Current weight: Weight: 63.7 kg (140 lb 6.9 oz) Intake/Output Summary (Last 24 hours) at 06/07/18 1258 Last data filed at 06/07/18 1233 Gross per 24 hour Intake 2596 ml Output 800 ml Net 1796 ml MEDICATIONS: Scheduled Meds: albuterol-ipratropium 3 mL Nebulization QIDWA nicotine 1 patch Transdermal Daily Continuous Infusions: sodium chloride 0.45% 50 mL/hr at 06/07/18 1233 PRN Meds:albuterol, aluminum & magnesium hydroxide-simethicone, morphine, oxyCODONE Physical Examination: General: WD, WN , no distress HEENT: trach in good position; [place] for humidification Cardiovascular: Reg rate and rhythm, no murmur or gallop Respiratory: Satisfactory air movement; coarse rhonchorous breath sounds bilat Abdomen: Soft, non-tender Extremities: No edema, erythema or deformity Neurological: Resting comfortably, cooperative, grossly non-focal DIAGNOSTICS: Labs: Lab Results Component Value Date CREA 0.60 06/06/2018 BUN 11 06/06/2018 NA 137 06/06/2018 K 3.9 06/06/2018 CL 101 06/06/2018 CO2 29 06/06/2018 Lab Results Component Value Date WBC 6.8 06/06/2018 HGB 13.3 06/06/2018 HCT 38.5 06/06/2018 MCV 92.0 06/06/2018 PLT 283 06/06/2018 No results found for: CKMB, TROPONIN No results found for: INR, PROTIME ASSESSMENT AND PLAN 62yo with laryngeal mass, 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, path pending at this time She is s/p Bx and urgent tracheotomy tube placement at [facility] on 06/01/18 Now stable from cardio-pulm standpoint Arrangements being made for transfer to skilled facility for trach training Pt to follow up with Dr Hines in approx week's time for conversion to non-cuffed trach To start XRT in near future Seen by [facility] ASSOCIATE eval; some dyphagia noted; dietary recommendations noted Would consider eval by med oncol as well Continue DEIDRE's Tracheal humidification Would check caloric intake. Nicotine replacement therapy added Continue regimen. Possible feeding tube in the future Further management per ENT service Electronically signed by: Prosper Dudley MD, DATE/TIME: 06/07/2018 12:58 [facility] [facility], [place]Prosper reeves MD - 06/06/2018 1144 PDTFormatting of this note may be different from the original. 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 She was referred to ENT at which point a bulky laryngeal mass was identified On 06/01/18 the patient underwent tumor debulking, Bx at [facility] in [place], [place] Post operatively the pt abruptly developed airway obstruction and returned to the OR at [facility] time an urgent tracheostomy was performed. The pt was transferred to [facility] ICU for further care. Initially the pt was experiencing considerable coughing, oozing of blood, plugging of trach eotomy tube inner cannula but with humidification and cleaning of the inner cannula, her res p status improved. She was transferred to the gen surgical floor in anticipation of d/c to home in the AM Our service was asked to assist with d/c planning Unfortunately the pt lives alone, will have no assistance with management of her new trach. Therefore arrangements now being made for temporary admission to skilled facility for trac h training, PT. She is awake, alert and appears comfortable today She is able to communicate by writing; reportedly did not tolerated occlusion of the trach tube She is agreeable to temporary placement at a SNF for trach tube training Per d/w Dr Hines he will plan to place shiley non-cuffed trach within the next couple of weeks. XRT in the future; ?oncology referral? May require TF in the future during radiation should she develop severe odynophagia No new problems reported overnight OBJECTIVE DATA VITAL SIGNS: BP 130/60 | Pulse 70 | Temp 36.7 C (98.1 F) | Resp 16 | Ht 1.549 m (5' 1") | Wt 63.7 kg (140 lb 6.9 oz) | SpO2 (!) 89% | BMI 26.53 kg/m Vital sign ranges for last 24hrs: Input and output for last 24hrs: Temp: [36.2 C (97.2 F)-37.6 C (99.7 F)] 36.7 C (98.1 F) Pulse: [65-72] 70 Resp: [16-20] 16 BP: (124-136)/(59-63) 130/60 SpO2 Av.5 % Min: 89 % Max: 100 % Flow (L/min) Av Min: 8 Max: 8 06/04 1901 - 06/06 0700 In: 3266 [P.O.:960; I.V.:2306] Out: 400 [Urine:400] Admit Weight: Weight: 64.5 kg (142 lb 3.2 oz) Current weight: Weight: 63.7 kg (140 lb 6.9 oz) Intake/Output Summary (Last 24 hours) at 06/06/18 1144 Last data filed at 06/06/18 0528 Gross per 24 hour Intake 3266 ml Output 400 ml Net 2866 ml MEDICATIONS: Scheduled Meds: albuterol-ipratropium 3 mL Nebulization QIDWA nicotine 1 patch Transdermal Daily Continuous Infusions: sodium chloride 0.45% 50 mL/hr at 06/05/18 1602 PRN Meds:albuterol, morphine, oxyCODONE Physical Examination: General: WD, WN , no distress HEENT: trach in good position; [place] for humidification Cardiovascular: Reg rate and rhythm, no murmur or gallop Respiratory: Satisfactory air movement; unlabored resp effort, clear to auscultation Abdomen: Soft, non-tender Extremities: No edema, erythema or deformity Neurological: Resting comfortably, cooperative, grossly non-focal DIAGNOSTICS: Labs: Lab Results Component Value Date CREA 0.60 06/06/2018 BUN 11 06/06/2018 NA 137 06/06/2018 K 3.9 06/06/2018 CL 101 06/06/2018 CO2 29 06/06/2018 Lab Results Component Value Date WBC 6.8 06/06/2018 HGB 13.3 06/06/2018 HCT 38.5 06/06/2018 MCV 92.0 06/06/2018 PLT 283 06/06/2018 No results found for: CKMB, TROPONIN No results found for: INR, PROTIME ASSESSMENT AND PLAN 62yo with laryngeal mass, 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 Nicotine replacement therapy added Continue regimen. Possible feeding tube in the future Electronically signed by: Prosper Dudley MD, DATE/TIME: 06/06/2018 11:44 [facility] HOSPITALIST Prosper Sierra MD - 06/05/2018 1304 PDTFormatting of this note may be different from the original. 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 She was referred to ENT at which point a bulky laryngeal mass was identified On 06/01/18 the patient underwent tumor debulking, Bx at [facility] in [place], [place] Post operatively the pt abruptly developed airway obstruction and returned to the OR at [facility] time an urgent tracheostomy was performed. The pt was transferred to [facility] ICU for further care. Initially the pt was experiencing considerable coughing, oozing of blood, plugging of trach eotomy tube inner cannula but with humidification and cleaning of the inner cannula, her res p status improved. She was transferred to the gen surgical floor in anticipation of d/c to home in the AM Our service was asked to assist with d/c planning Unfortunately the pt lives alone, will have no assistance with management of her new trach. Therefore arrangements now being made for temporary admission to skilled facility for trac h training, PT. She is awake, alert and appears comfortable today She is able to communicate by writing; reportedly did not tolerated occlusion of the trach tube She is agreeable to temporary placement at a SNF for trach tube training Per d/w Dr Hines he will plan to place shiley non-cuffed trach within the next couple of weeks. XRT in the future; ?oncology referral? May require TF in the future during radiation should she develop severe odynophagia OBJECTIVE DATA VITAL SIGNS: BP 107/57 | Pulse 70 | Temp 36.5 C (97.7 F) (Axillary) | Resp 18 | Ht 1.549 m (5' 1") | Wt 63.7 kg (140 lb 6.9 oz) | SpO2 94% Comment: Denies distress. | BMI 26 .53 kg/m Vital sign ranges for last 24hrs: Input and output for last 24hrs: Temp: [36.5 C (97.7 F)-37.6 C (99.7 F)] 36.5 C (97.7 F) Pulse: [64-80] 70 Resp: [16-20] 18 BP: (107-136)/(55-90) 107/57 SpO2 Av.9 % Min: 87 % Max: 99 % Flow (L/min) Av Min: 8 Max: 8 06/03 1901 - 06/05 0700 In: 1643 [P.O.:1040; I.V.:603] Out: 250 [Urine:250] Admit Weight: Weight: 64.5 kg (142 lb 3.2 oz) Current weight: Weight: 63.7 kg (140 lb 6.9 oz) Intake/Output Summary (Last 24 hours) at 06/05/18 1304 Last data filed at 06/04/18 1830 Gross per 24 hour Intake 120 ml Output 200 ml Net -80 ml MEDICATIONS: Scheduled Meds: albuterol-ipratropium 3 mL Nebulization QIDWA nicotine 1 patch Transdermal Daily Continuous Infusions: sodium chloride 0.45% 50 mL/hr at 06/04/182025 PRN Meds:albuterol, morphine, oxyCODONE Physical Examination: General: WD, WN , no distress HEENT: Pupils equal, conjugate gaze, trach in good position Cardiovascular: Reg rate and rhythm, no murmur or gallop Respiratory: Satisfactory air movement; unlabored resp effort, clear to auscultation Abdomen: Softly distended without masses, tenderness or hepatomegaly Extremities: No edema, erythema or deformity Skin: No rashes, lesions; good cap refill is noted Neurological: Resting comfortably, visiting with family, appropriately responsive, grossly non-focal DIAGNOSTICS: Labs: No results found for: CREA, BUN, NA, K, CL, CO2 No results found for: WBC, HGB, HCT, MCV, LABPLAT, PLT No results found for: CKMB, TROPONIN No results found for: INR, PROTIME ASSESSMENT AND PLAN 62yo with laryngeal mass, 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 Nicotine replacement therapy added Continue regimen. Electronically signed by: Prosper Dudley MD, DATE/TIME: 06/05/2018 13:04 [facility] HOSPITALIST [facility]federal [facility], [place]Prosper reeves MD - 06/04/2018 1246 PDTFormatting of this note may be different from the original. HOSPITALIST progress NOTE [facility] 06/04/2018 Rounding Physician: Prosper Dudley MD Patient Name: Crystal Sadler : 1955 Medical Record: [id number] Primary Hospital Problem: Laryngeal tumor S/p tracheotomy HPI: Pt is 62yo halfway smoker who developed sore throat, hoarseness and ear ache. She was referred to ENT at which point a bulky laryngeal mass was identified On 06/01/18 the patient underwent tumor debulking, Bx at [facility] in [place], [place] Post operatively the pt abruptly developed airway obstruction and returned to the OR at [facility] time an urgent tracheostomy was performed. The pt was transferred to [facility] ICU for further care. Initially the pt was experiencing considerable coughing, oozing of blood, plugging of trach eotomy tube inner cannula but with humidification and cleaning of the inner cannula, her res p status improved. She was transferred to the gen surgical floor in anticipation of d/c to home in the AM Our service was asked to assist with d/c planning Unfortunately the pt lives alone, will have no assistance with management of her new trach and has no electricity at her residence. Therefore arrangements now being made for temporar y admission to skilled facility for trach training, PT. She is awake, alert and appears comfortable today She is able to communicate by writing; reportedly did not tolerated occlusion of the trach tube She is agreeable to temporary placement at a SNF for trach tube training Per d/w Dr Hines he will plan to place shiley non-cuffed trach within the next couple of weeks. XRT in the future; ?oncology referral? OBJECTIVE DATA VITAL SIGNS: BP 137/83 | Pulse 81 | Temp 36.5 C (97.7 F) (Oral) | Resp 18 | Ht 1.54 9 m (5' 1") | Wt 63.7 kg (140 lb 6.9 oz) | SpO2 (!) 85% Comment: oxygen back on 35% | BMI 26.53 kg/m Vital sign ranges for last 24hrs: Input and output for last 24hrs: Temp: [36.5 C (97.7 F)-38 C (100.4 F)] 36.5 C (97.7 F) Pulse: [66-84] 81 Resp: [16-18] 18 BP: (107-137)/(56-83) 137/83 SpO2 Av.5 % Min: 85 % Max: 99 % Flow (L/min) Av Min: 8 Max: 8 06/021 - 06/04 0700 In: 2434 [P.O.:480; I.V.:195] Out: 550 [Urine:550] Admit Weight: Weight: 64.5 kg (142 lb 3.2 oz) Current weight: Weight: 63.7 kg (140 lb 6.9 oz) Intake/Output Summary (Last 24 hours) at 06/04/18 1246 Last data filed at 06/04/18 0603 Gross per 24 hour Intake 1532 ml Output 350 ml Net 1182 ml MEDICATIONS: Scheduled Meds: albuterol-ipratropium 3 mL Nebulization QIDWA nicotine 1 patch Transdermal Daily Continuous Infusions: sodium chloride 0.45% 50 mL/hr at 06/03/18 2353 PRN Meds:albuterol, morphine, oxyCODONE Physical Examination: General: WD, WN , no distress HEENT: Pupils equal, conjugate gaze, trach in good position Cardiovascular: Reg rate and rhythm, no murmur or gallop Respiratory: Satisfactory air movement bilat in ant-lat lung guadarrama Abdomen: Softly distended without masses, tenderness or hepatomegaly Extremities: No edema, erythema or deformity Skin: No rashes, lesions; good cap refill is noted Neurological: Resting comfortably, visiting with family, appropriately responsive, grossly non-focal DIAGNOSTICS: Labs: No results found for: CREA, BUN, NA, K, CL, CO2 No results found for: WBC, HGB, HCT, MCV, LABPLAT, PLT No results found for: CKMB, TROPONIN No results found for: INR, PROTIME ASSESSMENT AND PLAN 62yo with laryngeal mass, 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, path pending at this time She is POD#3 s/p Bx and urgent tracheotomy tube placement Now stable from cardio-pulm standpoint Arrangements being made for transfer to skilled facility for trach training Pt to follow up with Dr Hines in approx Week's time for conversion to non-cuffed trach To start XRT in near future Awaiting BROKER ASSOCIATE eval altho pt appears to be able to tolerate po now; I am less optimistic abou t PO intake once XRT begins at which point pt may required feeding tube Would consider eval by med oncol as well Continue DEIDRE's Tracheal humidification Would check caloric intake. Nicotine replacement therapy added Check labs in AM Electronically signed by: Prosper Dudley MD, DATE/TIME: 06/04/2018 12:46 [place] [facility] Heide Abdullahi RN - 06/02/2018 1638 PDTPt transferred down from ICU. Alert and able to mouth need or uses paper to communicate. NATURAL SCIENCES MANAGER reported th at she did try to deflate cuff for pt to try to talk and pt did not tolerate and became very anxious. Pt reported to me that it made her feel that she could not get air. Pt did c/o mega n at neck and head and morphine was given. RT present and set up humidified air and did jose thing treatment and trach care. Pt calm and quiet. States the trach makes her anxious and sh e feels SOB at times d/t anxiety. Ac Hines MD - 06/02/2018 1127 PDTDoing well. Tra ch in place. Will discharge 1-2 days. Janee Cornell, ADRIA - 06/02/2018 1119 PDTPatient wi ll need portable suction, trach care supplies, and humidified oxygen for home upon discharg e. Electronically signed by: Janee Cornell RRT 06/02/2018 11:21 in this encounter Plan of Treatment +--------+ + + + + | Date | Type | Specialty | Care Team | Description | +--------+ + + + + | 07/13/ | Appointment | Oncology | Sterling Thomas, | | | 2017 | | | MD [address] | | | | | | [place] | | | | | | [address] | | | | | | [phone] | | | | | | | | +--------+ + + + + | 07/13/ | Hospital | Infusion Therapy | Sterling Thomas, | Encounter for | | 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 | | MD [address] | antineoplastic | | | | | [place] | chemotherapy | | | | | [address] | | | | | | [phone] | | | | | | | | +--------+ + + + + | 07/13/ | Appointment | Nutrition | Joselin Falcon, | | | 2017 | | | RDN | | +--------+ + + + + + +--------+ + + | Name | Priori | Associated Diagnoses | Order Schedule | | | ty | | | + +--------+ + + | Referral to Home Health - | Routin | Bilateral foot | Ordered: 06/03/2018 | | OUTPATIENT | e | pain Right leg pain | | + +--------+ + + | Referral to Home Health | Routin | Chronic | Ordered: 06/10/2018 | | | e | obstructive | | | | | pulmonary disease, | | | | | unspecified COPD | | | | | type (HCC) Smoker | | | | | Tracheostomy, acute | | | | | management (HCC) | | | | | Squamous cell | | | | | carcinoma of larynx | | | | | (HCC) | | + +--------+ + + as of [...] + + + in this encounter Results Calcium, Ionized (06/06/2018605) + + + + + | Component | Value | Ref Range | Performed At | + + + + + | Ionized Calcium | 5.68 (H) | 4.48 - 5.28 mg/dL | [facility] | | | | | [facility] | | | | | [...] + | [facility] | [address] | [place] | [phone] | | [facility] | | [address] | | | - LABORATORY | | | | + + + + + | [facility] | [address] | [place], [place] | | | [facility] | | [address] | | | - LABORATORY | | | | + + + + + Phosphorus (06/06/2018605) + +-------+ + + | Component | Value | Ref Range | Performed At | + +-------+ + + | Phosphorus | 3.5 | 2.5 - 4.6 mg/dL | [facility] | | | | | [facility] | | | | | [...] + | [facility] | [address] | [place], [place] | [phone] | | [facility] | | [address] | | | - LABORATORY | | | | + + + + + | [facility] | [address] | [place], [place] | | | [facility] | | [address] | | | - LABORATORY | | | | + + + + + Magnesium (06/06/2018605) + +-------+ + + | Component | Value | Ref Range | Performed At | + +-------+ + + | MG | 2.0 | 1.8 - 2.5 mg/dL | [facility] | | | | | [facility] | | | | | [...] + | [facility] | [address] | [place] | [phone] | | [facility] | | [address] | | | - LABORATORY | | | | + + + + + | [facility] | [address] | [place] | | | [facility] | | [address] | | | - LABORATORY | | | | + + + + + CBC no Differential (06/06/2018605) + +-------+ + + | Component [...] + | [facility] | [address] | [place] | [phone] | | [facility] | | [address] | | | - LABORATORY | | | | + + + + + | [facility] | [address] | [place] | | | [facility] | | [address] | | | - LABORATORY | | | | + + + + + Basic Metabolic Panel (06/06/2018605) + + + + + | Component | Value | Ref Range | Performed At | + + + + + | NA | 137 | 136 - 149 mmol/L | [facility] | | | | | [facility] | | | | | CENTER - | | | | | LABORATORY | + + + + + | K | 3.9 | 3.5 - 5.1 mmol/L | [facility] | | | | | [facility] | | | | | CENTER - | | | | | LABORATORY | + + + + + | BUN | 11 | 7 - 18 mg/dL | [facility] | | | | | [facility] | | | | | CENTER - | | | | | LABORATORY | + + + + + | Creatinine, | 0.60 | 0.60 - 1.30 mg/dL | [facility] | | Serum/Plasma | | | [facility] | | | | | CENTER - | | | | | LABORATORY | + + + + + | eGFR if not | >60Comment: GLOMERULAR | >=60 mL/min/1.73m2 | [facility] | | [facility]IAN | FILTRATION | | [facility] | | | RATE,ESTIMATED mL/min | | CENTER - | | | /1.68v0Apjw than 60 | | LABORATORY | | [...] 8.9 | 8.3 - 10.5 mg/dL | [facility] | | | | | [facility] | | | | | CENTER - | | | | | LABORATORY | + + + + + | BUN/CREA | 18.3 | | [facility] | | | | | [facility] | | | | | [...] + | [facility] | [address] | [place], [place] | [phone] | | [facility] | | [address] | | | - LABORATORY | | | | + + + + + | [facility] | [address] | [place], [place] | | | [facility] | | [address] | | | - LABORATORY | | | | + + + + + Culture, MRSA (06/01/2018 1659) + + + + + | Component | Value | Ref Range | Performed At | + + + + + | Culture | Negative for MRSA by | | [facility] | | | chromogenic agar method | | [facility] | | | | | CENTER [...] + | [facility] | [address] | [place] | [phone] | | [facility] | | [address] | | | - LABORATORY | | | | + + + + + | [facility] 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 | + + | Malignant neoplasm of larynx, unspecified site | + + | Bilateral foot pain | + + | Pain in limb | + + | Right leg pain | + + | Pain in limb | + + | Laryngeal carcinoma (HCC) | + + | Malignant neoplasm of larynx, unspecified site | + + | Status post emergency tracheotomy for assistance in breathing (HCC) | + + | Tracheostomy status | + + | Chronic obstructive pulmonary disease, unspecified COPD type (HCC) | + + | Smoker | + + | Tobacco use disorder | + + | Tracheostomy, acute management (HCC) | + + | Attention to tracheostomy | + + Admitting Diagnoses + + | Diagnosis | + + | New trach | + + Administered Medications + +--------+---------+------+------+------+ | Medication Order | MAR | Action | Dose | Rate | Site | | | Action | Date | | | | + +--------+---------+------+------+------+ + +---+ | acetaminophen (TYLENOL) tablet | | | 650 mg 650 mg, Oral, EVERY 4 | | | HOURS PRN, Pain, Starting Lenore | | | 06/10/18 at 1413 | | + +---+ | | | + +---+ + +-------+ +--------+---+---+ | albuterol 2.5 mg/3 mL nebulizer | Given | | 2.5 mg | | | | solution 2.5 mg 2.5 mg, | | 8 21:13 | | | | | Nebulization, RT EVERY 4 HOURS | | PDT | | | | | PRN, Shortness of Breath, | | | | | | | Starting Tu06/01/18 at 1538, RT | | | | | | | will administer. | | | | | | + +-------+ +--------+---+---+ +-------+ +--------+---+---+ | Given | | 2.5 mg | | | | | 8 4:46 | | | | | | PDT | | | | +-------+ +--------+---+---+ | Given | | 2.5 mg | | | | | 8 2:31 | | | | | | PDT | | | | +-------+ +--------+---+---+ +---+---+ | | | +---+---+ + +-------+ +-------+---+---+ | albuterol-ipratropium (DUONEB) | Given | | 3 mLs | | | | 2.5-0.5 mg/3 mL nebulizer | | 8 20:42 | | | | | solution 3 mL 3 mL, | | PDT | | | | | Nebulization, 4 TIMES DAILY WHILE | | | | | | | AWAKE, First dose on Thu06/02/18 | | | | | | | at 0800 | | | | | | + +-------+ +-------+---+---+ +-------+ +-------+---+---+ | Given | | 3 mLs | | | | | 8 7:23 | | | | | | PDT | | | | +-------+ +-------+---+---+ | Given | | 3 mLs | | | | | 8 12:18 | | | | | | PDT | | | | +-------+ +-------+---+---+ +---+---+ | | | +---+---+ + +-------+ +--------+---+---+ | aluminum & magnesium | Given | | 30 mLs | | | | hydroxide-simethicone (MAALOX | | 8 15:54 | | | | | PLUS REGULAR STRENGTH) 200-200-20 | | PDT | | | | | mg/5 mL suspension 30 mL 30 mL, | | | | | | | Oral, EVERY 2 HOURS PRN, | | | | | | | Indigestion, Heartburn, Starting | | | | | | | 06/06/18 at 1532, Gutierrez abraham. | | | | | | + +-------+ +--------+---+---+ +---+---+ | | | +---+---+ + +-------+ +--------+---+---+ | docusate sodium (COLACE) | Given | | 100 mg | | | | capsule 100 mg 100 mg, Oral, 2 | | 8 10:37 | | | | | TIMES DAILY, First dose on Lenore | | PDT | | | | | 06/10/18 at 1045, Swallow capsule | | | | | | | whole. | | | | | | + +-------+ +--------+---+---+ +---+---+ | | | +---+---+ + +-------+ +------+---+---+ | morphine injection 2-4 mg 2-4 | Given | | 2 mg | | | | mg, Intravenous, EVERY 2 HOURS | | 8 16:54 | | | | | PRN, Pain, Starting 06/01/18 | | PDT | | | | | at 1535 | | | | | | + +-------+ +------+---+---+ +-------+ +------+---+---+ | Given | | 4 mg | | | | | 8 1:45 | | | | | | PDT | | | | +-------+ +------+---+---+ | Given | | 4 mg | | | | | 8 4:20 | | | | | | PDT | | | | +-------+ +------+---+---+ +---+---+ | | | +---+---+ + +---------+ +---------+---+ + | nicotine (NICODERM) 21 mg/24 hr | Patch | | 1 patch | | Back-Lef | | 1 patch 1 patch, Transdermal, | Applied | 8 8:32 | | | t Upper | | DAILY, First dose on Thu06/01/18 | | PDT | | | | | at 1730 | | | | | | + +---------+ +---------+---+ + + + +---------+---+ + | Patch Applied | | 1 patch | | Back-Rig | | | 8 10:23 | | | ht Upper | | | PDT | | | | + + +---------+---+ + | Patch Applied | | 1 patch | | Back-Lef | | | 8 9:54 | | | t Upper | | | PDT | | | | + + +---------+---+ + + +---+ | | | + +---+ | oxyCODONE (ROXICODONE) tablet | | | 2.5 mg 2.5 mg, Oral, EVERY 4 | | | HOURS PRN, Pain, Starting Lenore | | | 06/10/18 at 1020 | | + +---+ | | | + +---+ + +-------+ +------+---+---+ | oxyCODONE (ROXICODONE) tablet | Given | | 5 mg | | | | 2.5-5 mg 2.5-5 mg, Oral, EVERY 4 | | 8 0:42 | | | | | HOURS PRN, Pain, Starting Wed | | PDT | | | | | 06/09/18 at 1725 | | | | | | + +-------+ +------+---+---+ +-------+ +------+---+---+ | Given | | 5 mg | | | | | 8 6:20 | | | | | | PDT | | | | +-------+ +------+---+---+ | Given | | 5 mg | | | | | 8 10:10 | | | | | | PDT | | | | +-------+ +------+---+---+ +---+---+ | | | +---+---+ + +-------+ +------+---+---+ | oxyCODONE (ROXICODONE) tablet 5 | Given | | 5 mg | | | | mg 5 mg, Oral, EVERY 4 HOURS | | 8 19:30 | | | | | PRN, Pain, Starting 06/01/18 | | PDT | | | | | at 1536 | | | | | | + +-------+ +------+---+---+ +-------+ +------+---+---+ | Given | | 5 mg | | | | | 8 1:01 | | | | | | PDT | | | | +-------+ +------+---+---+ | Given | | 5 mg | | | | | 8 6:00 | | | | | | PDT | | | | +-------+ +------+---+---+ +---+---+ | | | +---+---+ + +-------+ +------+---+---+ | oxyCODONE (ROXICODONE) tablet 5 | Given | | 5 mg | | | | mg 5 mg, Oral, EVERY 4 HOURS | | 8 6:19 | | | | | PRN, Pain, Starting 06/08/18 | | PDT | | | | | at 0839 | | | | | | + +-------+ +------+---+---+ +-------+ +------+---+---+ | Given | | 5 mg | | | | | 8 10:22 | | | | | | PDT | | | | +-------+ +------+---+---+ | Given | | 5 mg | | | | | 8 14:35 | | | | | | PDT | | | | +-------+ +------+---+---+ +---+---+ | | | +---+---+ + +-------+ +-------+---+---+ | oxyCODONE (ROXICODONE) tablet | Given | | 10 mg | | | | 5-10 mg 5-10 mg, Oral, EVERY 4 | | 8 18:13 | | | | | HOURS PRN, Pain, Starting Fri | | PDT | | | | | 06/04/18 at 0815 | | | | | | + +-------+ +-------+---+---+ +-------+ +-------+---+---+ | Given | | 10 mg | | | | | 8 23:14 | | | | | | PDT | | | | +-------+ +-------+---+---+ | Given | | 10 mg | | | | | 8 6:08 | | | | | | PDT | | | | +-------+ +-------+---+---+ +---+---+ | | | +---+---+ + +-------+ +------+---+---+ | polyethylene glycol (MIRALAX) | Given | | 17 g | | | | powder 17 g 17 g, Oral, DAILY, | | 8 10:37 | | | | | First dose on [facility] 06/10/18 at | | PDT | | | | | 1045, Mix with 8 oz. water. | | | | | | + +-------+ +------+---+---+ +---+---+ | | | +---+---+ + +-------+ +--------+---+---+ | senna (SENOKOT) tablet 8.6 mg | Given | | 8.6 mg | | | | 8.6 mg, Oral, 2 TIMES DAILY, | | 8 10:37 | | | | | First dose on [facility] 06/10/18 at 1045 | | PDT | | | | + +-------+ +--------+---+---+ +---+---+ | | | +---+---+ + +---------+ +---+ +---+ | sodium chloride 0.45% (1/2 NS) | New Bag | | | 50 mL/hr | | | infusion at 50 mL/hr, | | 8 16:02 | | | | | Intravenous, CONTINUOUS, Starting | | PDT | | | | | 06/02/18 at 0845 | | | | | | + +---------+ +---+ +---+ +---------+ +---+ +---+ | New Bag | | | 50 mL/hr | | | | 8 12:20 | | | | | | PDT | | | | +---------+ +---+ +---+ | New Bag | | | 50 mL/hr | | | | 8 12:33 | | | | | | PDT | | | | +---------+ +---+ +---+ +---+---+ | | | +---+---+ in this encounter
--- OUTSIDE RECORDS SUMMARY | ~2018-07-10 | XMS | Encounter Summary ---
Demographics + + + | Address | [address] | | | [place] [address] | + + + | Home Phone | | + + + | Preferred Language | Unknown | + + + | Marital Status | Single | + + + | Jew Affiliation | Unknown | + + + | Race | Unknown | + + + | Ethnic Group | Unknown | + + + Author + + + | Author | [facility] | | | and Mikeana | + + + | Organization | [facility] | | | and [...] Team Providers + +------+ + | Care Gang Bore Operator Name | Role | Phone | [...] | Specialty | Oncology | Diagnoses | Rigalen, | Mckenna, | | | Services | | Squamous | Estefanía Warner, | Jamie | | | Required | | cell | MD Jack W | MD Manuel | | | | | carcinoma of | [address] | [address] | | | | | larynx | [place], | [place] | | | | | (HCC) | [place] [address] | [facility], [place] | | | | | | Phone: | [phone] Phone: | | | | | | [phone] | [phone] | | | | | | Fax: | Fax: | | | | | | [phone] | [phone] | + + + + + + + Encounter Details +--------+ + + + + | Date | Type | Department | Care Team | Description | +--------+ + + + + | 06/30/ | Hospital | [facility] | Sterling Thomas, | 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 | | | | [facility] CLINIC [address] | [place] | (HCC) (Primary Dx) | | | | [address] | [address] | | | | | [place] [address] | [phone] | | | | | [phone] | | | +--------+ + + + [...] | No | | | quit in 1993 | + + +---------+ + + + + | Sex Assigned at | Date Recorded | | | | + + + | Not on file | | + + + as of this encounter Last Filed Vital Signs + + + + | Vital Sign | Reading | Time Taken | + + + + | Blood Pressure | 132/79 | 06/30/20181501 PDT | + + + + | Pulse | 83 | 06/30/20181501 PDT | + + + + | Temperature | 36.9 C (98.4 F) | 06/30/20181501 PDT | + + + + | Respiratory Rate | 18 | 06/30/20181501 PDT | + + + + | Oxygen Saturation | 95% | 06/30/20181501 PDT | + + + + | Inhaled Oxygen | - | - | | Concentration | | | + + + + | Weight | 65.2 kg (143 lb 11.8 | 06/30/20181501 PDT | | | oz) | | + + + + | Height | 156.2 cm (5' 1.5") | 06/30/20181501 PDT | + + + + | Body Mass Index | 26.72 | 06/30/20181501 PDT | + + + + in [...] | | | | | ([facility]), Status post | | | | | | | emergency | | | | | | | tracheotomy for | | | | | | | assistance in | | | | | | | breathing ([facility]), | | | | | | | Chronic obstructive | | | | | | | pulmonary disease, | | | | | | | unspecified COPD | | | | | | | type (HCC) | | | | | | + [...] [place] | | | | | | [address] | | | | | | [phone] | | | | | | | | +--------+ + + + + | 07/13/ | Hospital | Infusion Therapy | Sterling Thomas, | Encounter for | | 2017 | Encounter | | MD Guero NICOLE | antineoplastic | | | | | [place] | chemotherapy | | | | | [address] | | | | | | [phone] | | | | | | | [...]
--- OUTSIDE RECORDS SUMMARY | ~2018-07-10 | XMS | Encounter Summary ---
Demographics + + + | Address | [address] | | | [place] [address] | + + + | Home Phone [...] + + + | Author | [facility] | | | and [place] | + + + | Organization | [facility] | | | and [place] | [...] Team Providers + +------+ + | Care Jewish History Professor Name | Role | Phone | + [...] Radiology | Diagnoses | Yovanny, | [facility] | | | | | Squamous | Estefanía M, | Scan [address] | | | | | cell | MD [address] | [place] | | | | | carcinoma of | [address] | [place], [place] | | | | | larynx | [place], | [address] | | | | | (HCC) | [place] [address] | Phone: | | | | | Procedures | Phone: | [phone] | | | | | PET CT Skull | [phone] | Fax: | | | | | Base To Mid | Fax: | [phone] | | | | | Thigh | [phone] | | +--------+--------+ + + + + Diagnostic/Screening (Routine) +--------+--------+ + + + + | Status | Reason | Specialty | Diagnoses / | Referred By | Referred To | | | | | Procedures | Contact | Contact | +--------+--------+ + + + + | Closed | | Radiology | Diagnoses | Riegert, | [facility] | | | | | Squamous | Estefanía M, | Scan [address] | | | | | cell | MD [address] | [place] | | | | | carcinoma of | [address] | [place], [place] | | | | | larynx | [place], | [address] | | | | | ([facility]) | [place] [address] | Phone: | | | | | Procedures | Phone: | [phone] | | | | | PET CT Skull | [phone] | Fax: | | | | | Base To Mid | Fax: | [phone] | | | | | Thigh | [phone] | | +--------+--------+ + + + + Reason for Visit Diagnostic/Screening (Routine) +--------+--------+ + + + + | Status | Reason | Specialty | Diagnoses / | Referred By | Referred To | | | | | Procedures | Contact | Contact | +--------+--------+ + + + + | Closed | | Radiology | Diagnoses | Riegert, | [facility] | | | | | Squamous | Estefanía M, | Scan [address] | | | | | cell | MD [address] | [place] | | | | | carcinoma of | [address] | [place], [place] | | | | | larynx | [place], | [address] | | | | | ([facility]) | [place] [address] | Phone: | | | | | Procedures | Phone: | [phone] | | | | | PET CT Skull | [phone] | Fax: | | | | | Base To Mid | Fax: | [phone] | | | | | Thigh | [phone] | | +--------+--------+ + + + + Encounter Details +--------+ + + + + | Date | Type | Department | Care Team | Description | +--------+ + + + + | 07/01/ | Hospital | [facility] | Estefanía Hairston | 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 | | | | [address] [place] | [address] [place] [place] | ([facility]) | | | | [place] [address] | [address] | | | | | [phone] | | | +--------+ + + + [...] Does | 1 each | 0 | 08/23/20 | | | MIST HUMIDIFIER 1 | [...] [place] | | | | | | [address] | | | | | | [phone] | | | | | | | | +--------+ + + + + | 07/13/ | Hospital | Infusion Therapy | Sterling Thomas, | Encounter for | | 2017 | Encounter | | MD Guero NICOLE | antineoplastic | | | | | [place] | chemotherapy | | | | | [address] | | | | | | [phone] | | | | | | | [...] in the | | | | | ([facility]) | results section. | + +--------+ + + + in this encounter Results PET CT Skull Base To Mid Thigh [...] | | | |Dictated and Signed by: Zcah Denton MD | | Electronically signed: 07/02/2018 [...] | + + Administered Medications + +--------+ + +------+------+ | Medication Order | MAR | Action | Dose | Rate | Site | | | Action | Date | | | | + +--------+ + +------+------+ | fluorine-18 FDG injection 17.78 | Given | | 17.78 | | | | millicurie 17.78 millicurie, | | 8 11:07 | millicur | | | | Intravenous, ONCE, [facility] 07/01/18 at | | PDT | ies | | | | 1115, For 1 dose | | | | | | + +--------+ + +------+------+ +---+---+ | | | +---+---+ in this encounter"
--- OUTSIDE RECORDS SUMMARY | ~2018-07-10 | XMS | Encounter Summary ---
Demographics + + + | Address | [address] | | | [place] [address] | + + + | Home Phone [...] | [facility] | | | and [place] | + + + | Organization | [facility] | | | and [...] Team Providers + +------+ + | Care Motion Picture Projectionist Name | Role | Phone | + [...] | Squamous | Estefanía M, | [address] | | | | | cell | MD [address] | [place], | | | | | carcinoma of | [address] | [place] [address] | | | | | larynx | [place], | Phone: | | | | | (HCC) | [place] [address] | [phone] | | | | | Procedures | Phone: | Fax: | | | | | CT Treatment | [phone] | | | | | Plan | Fax: | | | | | | Complex CT | [phone] | | | | | | [place] [...] | Squamous | Estefanía M, | [address] | | | | | cell | MD [address] | [place], | | | | | carcinoma of | [address] | [place] [address] | | | | | larynx | [place], | Phone: | | | | | (HCC) | [place] [address] | [phone] | | | | | Procedures | Phone: | Fax: | | | | | CT Treatment | [phone] | [phone] | | | | | Plan | Fax: | | | | | | Complex CT | [phone] | | | | | | [place] [...] | Squamous | Estefanía M, | [address] | | | | | cell | MD [address] | [place], | | | | | carcinoma of | [address] | [place] [address] | | | | | larynx | [place], | Phone: | | | | | (HCC) | [place] [address] | [phone] | | | | | Procedures | Phone: | Fax: | | | | | CT Treatment | [phone] | [phone] | | | | | Plan | Fax: | | | | | | Complex CT | [phone] | | | | | | [place] PLAN | | | +--------+--------+ + + + + Encounter Details +--------+ + + + + | Date | Type | Department | Care Team | Description | +--------+ + + + + | 07/01/ | Hospital | [facility] | Estefanía Hairston | 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 | | | | [address] [place], | [place] | ([facility]) | | | | [place] [address] | [address] | | | | | [phone] | | | +--------+ + + + [...] | | | | | | ([facility]), Status post | | | | | | | emergency | | | | | | | tracheotomy for | | | | | | | assistance in | | | | | | | breathing ([facility]), | | | | | | | Chronic obstructive | | | | | | | pulmonary disease, | | | | | | | unspecified COPD | | | | | | | type ([facility]) | | | | | | + [...] [place] | | | | | | [address] | | | | | | [phone] | | | | | | | | +--------+ + + + + | 07/13/ | Hospital | Infusion Therapy | Sterling Thomas, | Encounter for | | 2017 | Encounter | | MD Gureo NICOLE | antineoplastic | | | | | [place] | chemotherapy | | | | | [address] | | | | | | [phone] | | | | | | | [...] the | | | | | ([facility]) | results section. | + +--------+ + [...]
--- OUTSIDE RECORDS SUMMARY | ~2018-07-10 | XMS | Clinical Summary ---
Demographics + + + | Address | [address] | | | [place] [address] | + + + | Home Phone [...] + | Author | [facility] | | | and [place]ana | + + + | Organization | [facility] | [...] Team Providers + +------+ + | Care Casing Flusher Name | Role | Phone | + [...] | | | | | | | ([facility]), Status post | | | | | | | | emergency | | | | | | | | tracheotomy for | | | | | | | | assistance in | | | | | | | | breathing ([facility]), | | | | | | | | Chronic obstructive | | | | | | | | pulmonary disease, | | | | | | | | unspecified COPD | | | | | | | | type ([facility]) | | | | | [...] e | + + + +---------+------+------+-------+ | docusate sodium | Take 100 mg by mouth | 60 | 0 | 08/2 | 09/0 | Disco | | (COLACE) 100 MG | 2 times daily. | capsule | | 3/20 | 05/07 | ntinu | | capsule | | | | 18 | 18 | ed | + + + +---------+------+------+-------+ | nicotine | Place 1 patch onto | 30 | 0 | 08/2 | 09/0 | Disco | | (NICODERM) 21 mg/24 | the skin Daily. | patch | | 4/20 | 7/20 | ntinu | | hr | | [...] lungs EVERY 4 TO | | | 9/20 | 7/20 | ntinu | | inhaler | 6 HOURS NEEDED. 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 Alana | carcinoma of larynx | | | | | | ([facility]) (Primary Dx) | +--------+ + + + + | 06/10/ | Hospital | | Lida Garcia | | | 2017 | Encounter | | D, PT | | +--------+ + + + + | 06/01/ | Hospital | | Ac Hines, | Tracheostomy, acute | | 2018 - | Encounter | | MD | management ([facility]) | | | | | | (Primary Dx); | | 06/10/ | | | | Bilateral foot pain; | | 2017 | | | | Right leg pain; | | | | | | Laryngeal carcinoma | | | | | | ([facility]); Status post | | | | | | emergency | | | | | | tracheotomy for | | | | | | assistance in | | | | | | breathing ([facility]); | | | | | | Chronic obstructive | | | | | | pulmonary disease, | | | | | | unspecified COPD | | | | | | type ([facility]); Smoker; | | | | | | Squamous cell | | | | | | carcinoma of larynx | | | | | | (HCC) | +--------+ + + + + +---+ + | | Discharge | | | Summaries | | | - Jeannie, | | | Ashkan H, | | | MD - | | [...] | | | MRN: | | | [id number] | | | Date of | | | Admission: | | | 06/01/2018 | | | Date of | | | Discharge: | | | 06/10/18 | | | Admitting | | | Physician: | | | Ac Warner | | | Donny, | | | MD | | | Discharging | | | Physician: | | | Ashkan | | | HKumar Dennis, | | | MD | | | Primary | | | Care | | | Provider: | | | Yeyo | | | DO Justin | | | | | | Discharge [...] | | | of | | | larynx/alehtea | | | gement of | | | new | | | tracheostom | | | y:- S/p | | | debulking | | | surgery and | | | trach | | | placement | | | at [facility], | | | transferred | | | to [facility] | | | for acute | | | care- | | | Admitted | | | for | | | management | | | of new | | | trach- Dr. | | | [place] | | | evaluated | | | [...] | | with Dr. | | | [place] S | | | moker/COPD: | | [...] | | re-check--i | | | n [place] | | | | | | officeConta | | | ct | | | information | | | :[address] | | [address], [place] | | | [place] | | | [place] | | | [phone] | | | | | | Discharge [...] | | | [facility] | | | [place] | | | Medical | | | [...] 06/30/20181501 PDT | + + + + Plan of Treatment +--------+ + + + + | Date | Type | Specialty | Care Team | Description | +--------+ + + + + | 07/13/ | Appointment | | Sterling Thomas, | | | 2017 | | | MD [address] | | | | | | [place] | | | | | | [address] | | | | | | [phone] | | | | | | | | +--------+ + + + + | 07/13/ | Hospital | | Sterling Thomas, | Encounter for | | 2017 | Encounter | | MD [address] | antineoplastic | | | | | [place] | chemotherapy | | | | | [address] | | | | | | [phone] | | | | | | | | +--------+ + + + + | 07/13/ | Appointment | | Joselin Falcon, | [...] in the | | | | | ([facility]) | results section. | + +--------+ + + + | CT TREATMENT PLAN | Routin | 07/01/2018 | Squamous cell | Results for this | | COMPLEX | e | 0954 PDT | carcinoma of larynx | procedure are in the | | | | | ([facility]) | results section. | + [...] + + from Last [address] Skull Base To Mid [...] | MPV | 8.0 | fL | [facility] | | | | | ST. [...] [address] | [place] | [phone] | | [facility] | | [address] | | | - LABORATORY | | | | + + + + + | [facility] | [address] | [place] | | | [facility] | | [address] | | | - LABORATORY | | [...] + | [facility] | [address] | [place], [place] | [phone] | | [facility] | | [address] | | | - LABORATORY | | | | + + + + + | [facility] | [address] | [place], [place] | | | [facility] | | [address] | | | - LABORATORY | | | | + + + + + Magnesium (06/06/2018605) + +-------+ + + | Component | Value | Ref Range | Performed At | + +-------+ + + | MG | 2.0 | 1.8 - 2.5 mg/dL | [facility] | | | | | [facility] | | | | | [...] + | [facility] | [address] | [place] | [phone] | | [facility] | | [address] | | | - LABORATORY | | | | + + + + + | [facility] | [address] | [place], [place] | | | [facility] | | [address] | | | - LABORATORY | | [...] + | [facility] | [address] | [place], [place] | [phone] | | [facility] | | [address] | | | - LABORATORY | | | | + + + + + | [facility] | [address] | [place], [place] | | | [facility] | | [address] | | | - LABORATORY | | [...] >=60 mL/min/1.73m2 | [facility] | | [facility] | FILTRATION | | [facility] | | | RATE,ESTIMATED mL/min | | CENTER - | | | /1.08p6Rbtb than 60 | | LABORATORY | | [...] 8.9 | 8.3 - 10.5 mg/dL | [facility] | | | | | [facility] | | | | | CENTER - | | | | | LABORATORY | + + + + + | BUN/CREA | 18.3 | | [facility] | | | | | ST. [...] + | [facility] | [address] | [place], [place] | [phone] | | [facility] | | [address] | | | - LABORATORY | | | | + + + + + | [facility] | [address] | [place] | | | [facility] | | [address] | | | - LABORATORY | | | | + + + + + Culture, MRSA (06/01/2018 1659) + + + + + | Component | Value | Ref Range | Performed At | + + + + + | Culture | Negative for MRSA by | | [facility] | | | chromogenic agar method | | [facility] | | | | | [...] + | [facility] | [address] | [place] | [phone] | | [facility] | | [address] | | | - LABORATORY | | | | + + + + + | [facility] | [address] | [place], [place] | | | [facility] | | [address] | | | - LABORATORY | | [...] +--------+ +---------+ | MEDICARE | MEDICA | [id number] | Medica | +1- | | | | RE | | [...] Self | [birth year] | Home: | [address] | | [place] | al/Fam | | 1955 | [phone] | [place] [address] | | | emerita | | | [phone] | | + +--------+ +--------+ + +
--- OUTSIDE RECORDS SUMMARY | ~2018-07-10 | XMS | Encounter Summary ---
Demographics + + + | Address | [address] | | | [place] [address] | + + + | Home Phone [...] | Author | [facility] | | | and Mikeana | + + + | Organization | [facility] | | | and Mikeana | [...] Team Providers + +------+ + | Care Longwall Shearer Operator Name | Role | Phone | [...] | | | | COPD type | [address] | | | | | | ([facility]) | Phone: | | | | | | Smoker | [phone] | | | | | | Tracheostomy | Fax: | | | | | | , acute | [phone] | | | | | | management [...] | | | | | 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 | Fax: | | | | | | ([facility]) | [phone] | | | | | | Procedures [...] | | | | COPD type | [address] | | | | | | ([facility]) | Phone: | | | | | | Smoker | [phone] | | | | | | Tracheostomy | Fax: | | | | | | , acute | [phone] | | | | | | management [...] | | | | | | | [place] [address] | | | | | | | Phone: | | | | | | | [phone] | | | | | | | Fax: | | | | | | | [phone] | | + + + + + [...] CENTER) | | | | [address] [place] | [address] [place], | (Primary Dx); | | 06/10/ | | [place] [address] | [place] [address] | Bilateral foot pain; | | 2018 | | [phone] | [phone] | Right leg pain; | | | [...] surgery and trach placement at [facility], transferred to [facility] for acut e care - Admitted [...] days. Specialty: Otolaryngology Why: For wound re-check--in [place] office Contact information: [address], [address] [facility] [address] Discharge Medications New Medications Details Commode Bedside [...] signed by: Ashkan Dennis MD, 06/10/2018 10:44 [facility] in this encounter Discharge Instructions Ashkan Dennis MD - 06/10/2018You were admitted with new tracheostomy after surgery for laryngeal mass. You will need home health at home, and we are working with the [facility] to supply home tracheostomy care needs. Please follow up with Dr. Hines to jairon iglesias the tracheostomy and treatment for the laryngeal mass. The following attachments cannot be sent through Care Everywhere.Care, Tracheostomy (Englis h)Caring for Your Tracheostomy Tube and Stoma, Discharge Instructions (Mongolian)Tracheostomy Care (Mongolian)Tracheostomy Tube or Stoma: Your New Airway (Mongolian)Tracheostomy Tube, Adjust ing to Your (Mongolian)Tracheostomy Tube, Your, Answers to Common Questions About (Mongolian)Tra cheostomy Tube, Your: Learning How to Communicate (Mongolian)Tracheostomy Tube, Your: Tips for Eating (Mongolian)Tracheostomy, Cleaning Your (Mongolian)Tracheostomy, Suctioning Your (Mongolian )Tracheostomy, What Is (Mongolian)in this encounter Medications at Time of Discharge [...] Progress Notes Ashkan Dennis MD - 06/09/2018 2927 PDTFormatting of this note may be different from karine lazar. [facility] PMG Hospitalist Progress Note Crystal Sadler is [...] as outlined above. Ashkan Dennis 06/09/2018 17:20 [facility] Tiffani King, PASSENGER LOCOMOTIVE ENGINEER - 06/09/2018 0913 PDTPt is sleeping will return for trach care and suctioning when she Wakes up or her nurse calls. BS are clear but diminished SpO2 On RA is 92%, 98% on 5 lpm oxygen driven neb tx.Ac Hines MD - 06/09/2018 0759 PDTPt stable and awaiting placement. Path still pending. I' ll see her in office in next weekMarlena Diaz, PASSENGER LOCOMOTIVE ENGINEER - 06/09/2018 0129 PDTPatient trach w [...] am if path is done Janee Cornell, PASSENGER LOCOMOTIVE ENGINEER - 06/08/2018 0956 PDTAt 0730 this morning [...] stoma to Dr. Dennis and to the community [facility] supervisor screen making. At 9:14 I received a call from [...] ENT assessment. Electronically signed by: Janee Cornell, PASSENGER LOCOMOTIVE ENGINEER 8 10:09 Ashkan Dennis MD - 06/08/2018 0842 PDTFormatting of this note may be different from karine lazar. [facility] PM Hospitalist Progress Note Crystal Sadler is [...] discussed with Dr. Hines who is in [facility], will discuss with Dr. Chavira today [...] the patient's care as outlined above. Ashkan Dnenis 06/08/2018 8:51 [facility] Prosper Dudley MD - 06/07/2018 1258 PDTFormatting of this note may be different from karine kingston original. 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 The pt was then transferred to [facility] ICU for further care. Initially the pt [...] Bx and urgent tracheotomy tube placement at [facility] on 06/01/18 Now stable from cardio-pulm standpoint Arrangements being made for transfer to skilled facility for trach training Pt to follow up with Dr Hines in approx week's time for conversion to non-cuffed trach To start XRT in near future Seen by DRY ICE MACHINE OPERATOR eval; some dyphagia noted; dietary recommendations noted Would consider eval by med oncol as well Continue DEIDRE's Tracheal humidification Would check caloric intake. Nicotine replacement therapy added Continue regimen. Possible feeding tube in the future Further management per ENT service Electronically signed by: Prosper Dudley MD, DATE/TIME: 06/07/2018 12:58 [facility] - 06/06/2018 1144 PDTFormatting of this note may be different from the original. 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 The pt was transferred to [facility] ICU for further care. Initially the pt [...] Bx and urgent tracheotomy tube placement at [facility] on 06/01/18 Stable from cardio-pulm standpoint Arrangements being made for transfer to skilled facility for trach training Pt to follow up with Dr Hines in approx week's time for conversion to non-cuffed trach To start XRT in near future Seen by DRY ICE MACHINE OPERATOR eval; some dyphagia noted; dietary recommendations noted [...] different from the original. 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 The pt was transferred to [facility] ICU for further care. Initially the pt [...] start XRT in near future Seen by DRY ICE MACHINE OPERATOR eval; some dyphagia noted; dietary recommendations noted Would consider eval by med oncol as well Continue DEIDRE's Tracheal humidification Would check caloric intake. Nicotine replacement therapy added Continue regimen. Electronically signed by: Prosper Dudley MD, DATE/TIME: 06/05/2018 13:04 [facility] - 06/04/2018 1246 PDTFormatting of this note may be different from the original. HOSPITALIST progress NOTE [facility] 06/04/2018 Rounding Physician: Prosper Dudley MD Patient Name: Crystal Sadler : 1955 Medical Record: [id number] Primary Hospital Problem: Laryngeal tumor S/p tracheotomy HPI: Pt is 62yo fdc smoker who developed sore throat, hoarseness and ear ache. 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 The pt was transferred to [facility] ICU for further care. Initially the pt [...] To start XRT in near future Awaiting DRY ICE MACHINE OPERATOR eval altho pt appears to be able to tolerate po now; I am less optimistic abou t PO intake once XRT begins at which point pt may required feeding tube Would consider eval by med oncol as well Continue DEIDRE's Tracheal humidification Would check caloric intake. Nicotine replacement therapy added Check labs in AM Electronically signed by: Prosper Dudley MD, DATE/TIME: 06/04/2018 12:46 [facility]PITAL[facility] Heide Abdullahi RN - 06/02/2018 1638 PDTPt transferred down from ICU. Alert and able to mouth need or uses paper to communicate. IT DESKTOP SUPPORT SPECIALIST reported th at she did try to [...] | | | | | [place] | | | | | | [address] | | | | | | [phone] | | | | | | | | +--------+ + + + + | 07/13/ | Hospital | Infusion Therapy | Sterling Thomas, | Encounter for | | 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 | | MD [address] | antineoplastic | | | | | [place] | chemotherapy | | | | | [address] | | | | | | [phone] | | | | | | | [...] | | | | | [facility] | | | | | [...] + | [facility] | [address] | [place] | [phone] | | [facility] | | [address] | | | - LABORATORY | | | | + + + + + | [facility] | [address] | [place], [place] | | | [facility] | | [address] | | | - LABORATORY | | | | + + + + + Phosphorus (06/06/2018605) + +-------+ + + | Component | Value | Ref Range | Performed At | + +-------+ + + | Phosphorus | 3.5 | 2.5 - 4.6 mg/dL | [facility] | | | | | [facility] | | | | | [...] + | [facility] | [address] | [place], [place] | [phone] | | [facility] | | [address] | | | - LABORATORY | | | | + + + + + | [facility] | [address] | [place], [place] | | | [facility] | | [address] | | | - LABORATORY | | | | + + + + + Magnesium (06/06/2018605) + +-------+ + + | Component | Value | Ref Range | Performed At | + +-------+ + + | MG | 2.0 | 1.8 - 2.5 mg/dL | [facility] | | | | | [facility] | | | | | [...] + | [facility] | [address] | [place] | [phone] | | [facility] | | [address] | | | - LABORATORY | | | | + + + + + | [facility] | [address] | [place] | | | [facility] | | [address] | | | - LABORATORY | | [...] + | [facility] | [address] | [place] | [phone] | | [facility] | | [address] | | | - LABORATORY | | | | + + + + + | [facility] | [address] | [place] | | | [facility] | | [address] | | | - LABORATORY | | | | + + + + + Basic Metabolic Panel (06/06/2018605) + + + + + | Component | Value | Ref Range | Performed At | + + + + + | NA | 137 | 136 - 149 mmol/L | [facility] | | | | | [facility] | | | | | [...] [facility] | | | | | [facility] - | | | | | LABORATORY | + + + + + | BUN | 11 | 7 - 18 mg/dL | [facility] | | | | | [facility] | | [facility] - | | | | | LABORATORY | + + + + + | Creatinine, | 0.60 | 0.60 - 1.30 mg/dL | [facility] | | Serum/Plasma | | | [facility] | | | | [facility] - | | | | | LABORATORY | + + + + + | eGFR if not | >60Comment: GLOMERULAR | >=60 mL/min/1.73m2 | [facility] | | [place] | FILTRATION | | [facility] | | | RATE,ESTIMATED mL/min | | CENTER - | | | /1.84h3Yvsc than 60 | | LABORATORY | | [...] 8.9 | 8.3 - 10.5 mg/dL | [facility] | | | | | [facility] | | | | | CENTER - | | | | | LABORATORY | + + + + + | BUN/CREA | 18.3 | | [facility] | | | | | [facility] | | | | | [...] + | [facility] | [address] | [place], [place] | [phone] | | [facility] | | [address] | | | - LABORATORY | | | | + + + + + | [facility] | [address] | [place], [place] | | | [facility] | | [address] | | | - LABORATORY | | | | + + + + + Culture, MRSA (06/01/2018 1659) + + + + + | Component | Value | Ref Range | Performed At | + + + + + | Culture | Negative for MRSA by | | [facility] | | | chromogenic agar method | | [facility] | | | | [...] + | [facility] | [address] | [place] | [phone] | | [facility] | | [address] | | | - LABORATORY | | | | + + + + + | [facility] | [address] | [place], [place] | | | [facility] | | [address] | | | - LABORATORY | | [...] | | | | First dose on [facility] 06/10/18 at | | PDT | | [...] | | | | First dose on [facility] 06/10/18 at 1045 | | PDT | [...]
--- OUTSIDE RECORDS SUMMARY | ~2018-07-10 | XMS | Encounter Summary ---
Demographics + + + | Address | [address] | | | [place] [address] | + + + | Home Phone | | + + + | Preferred Language | Unknown | + + + | Marital Status | Single | + + + | Nondenominational Affiliation | Unknown | + + + | Race | Unknown | + + + | Ethnic Group | Unknown | + + + Author + + + | Author | [facility] | | | and Mikeana | + + + | Organization | [facility] [...] Team Providers + +------+ + | Care Machine Lead Burner Name | Role | Phone | [...] | | | | | [place] [address] | | | | | | [phone] | | | +--------+ + + + [...] [place] | | | | | | [address] | | | | | | [phone] | | | | | | | | +--------+ + + + + | 07/13/ | Hospital | Infusion Therapy | Sterling Thomas, | Encounter for | | 2017 | Encounter | | MD [address] | antineoplastic | | | | | [place] | chemotherapy | | | | | [address] | | | | | | [phone] | | | | | | | | +--------+ + + + + | 07/13/ | Appointment | Nutrition | Joselin Falcon, | | | 2017 | | | RDN | | +--------+ + + + + as of this encounter Visit Diagnoses Not on filein this encounter"
--- OUTSIDE RECORDS SUMMARY | ~2018-07-10 | XMS | Encounter Summary ---
Demographics + + + | Address | [address] | | | [place] [address] | + + + | Home Phone [...] + + + | Author | [facility] | | | and [place] | + + + | Organization | [facility] | | | and [place] [...] Team Providers + +------+ + | Care Substation Operator Automatic Name | Role | Phone | + +------+ + | Yeyo Anderson DO | PCP | | + +------+ + Encounter Details +--------+ + + + + | Date | Type | Department | Care Team | Description | +--------+ + + + + | 06/10/ | [facility] | [facility] | Lida Garcia | | | 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 | MED CTR ACUTE | D, PT [address] | | | | | PHYSICAL THERAPY | [facility] [place] | | | | | [address] [place] | [address] | | | | | [place] [address] | | | | | | [phone] | | | +--------+ + + + [...] [place] | | | | | | [address] | | | | | | [phone] | | | | | | | | +--------+ + + + + | 07/13/ | Hospital | Infusion Therapy | Sterling Thomas, | Encounter for | | 2017 | Encounter | | MD [address] | antineoplastic | | | | | [place] | chemotherapy | | | | | [address] | | | | | | [phone] | | | | | | | | +--------+ + + + + | 07/13/ | Appointment | Nutrition | Joselin Falcon, | | | 2017 | | | RDN | | +--------+ + + + + as of this encounter Visit Diagnoses Not on filein this encounter"
--- OUTSIDE RECORDS SUMMARY | ~2018-07-10 | XMS | Encounter Summary ---
Demographics + + + | Address | [address] | | | [place] [address] | + + + | Home Phone [...] Author | [facility] | | | and [place] | + + + | Organization | [facility] | | | and [...] + +------+ + | Care Search Engine Marketing Manager Name | Role | Phone | [...] | | | | | [place] [address] | | | | | | [phone] | | | +--------+ + + + [...] [place] | | | | | | [address] | | | | | | [phone] | | | | | | | | +--------+ + + + + | 07/13/ | Hospital | Infusion Therapy | Sterling Thomas, | Encounter for | | 2017 | Encounter | | MD [address] | antineoplastic | | | | | [place] | chemotherapy | | | | | [address] | | | | | | [phone] | | | | | | | | +--------+ + + + + | 07/13/ | Appointment | Nutrition | Joselin Falcon, | | | 2017 | | | RDN | | +--------+ + + + + as of this encounter Visit Diagnoses Not on filein this encounter"
--- OUTSIDE RECORDS SUMMARY | ~2018-07-10 | XMS | Encounter Summary ---
Demographics + + + | Address | [address] | | | [place] [address] | + + + | Home Phone [...] Author | [facility] | | | and [place] | + + + | Organization | [facility] | | | and iMkeana | + + + | Address | [...] Team Providers + +------+ + | Care Orchard Pruner Name | Role | Phone | + +------+ + PCP | Unavailable | + +------+ + Encounter Details +--------+ + + + + | Date | Type | Department | Care Team | Description | +--------+ + + + + | 06/25/ | Hospital | [facility] | Estefanía Hairston | | | 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 | MED CTR RADIATION | MD Alana [address] | | | | | ONCOLOGY [address] [place], [place] | | | | | [place], | [address] | | | | | [place] [address] | | | | | | [phone] | | | +--------+ + + + [...] 0 | 06/10/20 | | | ([facility]) | Does not apply route | | | 18 | | | MISCIndications: | as needed. | | | | | | Laryngeal carcinoma | | | | | | | ([facility]), Status post | | | | | | | emergency | | | | | | | tracheotomy for | | | | | | | assistance in | | | | | | | breathing ([facility]), | | | | | | | Chronic obstructive | | | | | | | pulmonary disease, | | | | | | | unspecified COPD | | | | | | | type ([facility]) | | | | | | [...] [place] | | | | | | [address] | | | | | | [phone] | | | | | | | | +--------+ + + + + | 07/13/ | Hospital | Infusion Therapy | Sterling Thomas, | Encounter for | | 2017 | Encounter | | MD [address]ero NICOLE | antineoplastic | | | | | [place] | chemotherapy | | | | | [address] | | | | | | [phone] | | | | | | | | +--------+ + + + + | 07/13/ | Appointment | Nutrition | Joselin Falcon, | | | 2017 | | | RDN | | +--------+ + + + + as of this encounter Visit Diagnoses Not on filein this encounter"
--- OUTSIDE RECORDS SUMMARY | ~2018-07-10 | XMS | Encounter Summary ---
Demographics + + + | Address | [address] | | | [place] [address] | + + + | Home Phone | | + + + | Preferred Language | Unknown | + + + | Marital Status | Single | + + + | Sikh Affiliation | Unknown | + + + | Race | Unknown | + + + | Ethnic Group | Unknown | + + + Author + + + | Author | [facility] | | | and [place] | + + + | Organization | [facility] [...] Team Providers + +------+ + | Care Tile Conduit Layer Name | Role | Phone | + +------+ + PCP | Unavailable | + +------+ + Encounter Details +--------+ + + + + | Date | Type | Department | Care Team | Description | +--------+ + + + + | 06/25/ | Hospital | [facility] | Estefanía Hairston | | | 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 | MED CTR RADIATION | MD Alana [address] | | | | | ONCOLOGY [address] [place], [place] | | | | | [place], | [address] | | | | | [place] [address] | | | | | | [phone] | | | +--------+ + + + [...] 0 | 06/10/20 | | | ([facility]) | Does not apply route [...] [place] | | | | | | [address] | | | | | | [phone] | | | | | | | | +--------+ + + + + | 07/13/ | Hospital | Infusion Therapy | Sterling Thomas, | Encounter for | | 2017 | Encounter | | MD [address]ero [address]ICOLE | antineoplastic | | | | | [place] | chemotherapy | | | | | [address] | | | | | | [phone] | | | | | | | | +--------+ + + + + | 07/13/ | Appointment | Nutrition | Joselin Falcon, | | | 2017 | | | RDN | | +--------+ + + + + as of this encounter Visit Diagnoses Not on filein this encounter"
--- OUTSIDE RECORDS SUMMARY | ~2018-07-10 | XMS | Encounter Summary ---
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[address] | [place] [address] | | | | | larynx | [place], | Phone: | | | | | (HCC) | [place] [address] | [phone] | | | | | Procedures | Phone: | Fax: | | | | | CT Treatment | [phone] | [phone] | | | | | Plan | Fax: | | | | | | Complex CT | [phone] | | | | | | [place] [...] [place] | | | | | ([facility]) | [place] [address] | [place], [place] | | | | | | Phone: | [address] Phone: | | | | | | [phone] | [phone] | | | | | | Fax: | Fax: | | | | | | [phone] | [phone] | + + + + + + [...] | cell | MD [address] | [place] | | | | | carcinoma of | [address] | [place] | | | | | larynx | [place], | [address] | | | | | ([facility]) | [place] [address] | Phone: | | | | | Procedures | Phone: | [phone] | | | | | PET CT Skull | [phone] | Fax: | | | | | Base To Mid | Fax: | [phone] | | | | | Thigh | [phone] | | +--------+--------+ + + + + [...] [address] | | | | | MD OFFICE | [address] | [address] | | | | | OUTPATIENT | [place], | [place], | | | | | VISIT 25 | [place] [address] | [place] [address] | | | | | MINUTES | Phone: | Phone: | | | | | | [phone] | [phone] | | | | | | Fax: | Fax: | | | | | | [phone] | [phone] | +--------+ + + + + + Encounter Details +--------+ + + + + | Date | Type | Department | Care Team | Description | +--------+ + + + + | 06/25/ | Hospital | [facility] | Estefanía Hairston | 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 | | | | ONCOLOGY CLINIC [address] | [place], [place] | (HCC) (Primary Dx) | | | | [facility] | [address] | | | | | [place] [address] | | | | | | [phone] | | | +--------+ + + + [...] | | | | | | ([facility]), Status post | | | | | | | emergency | | | | | | | tracheotomy for | | | | | | | assistance in | | | | | | | breathing ([facility]), | | | | | | | Chronic obstructive | | | | | | | pulmonary disease, | | | | | | | unspecified COPD | | | | | | | type ([facility]) | | | | | | [...] [place] | | | | | | [address] | | | | | | [phone] | | | | | | | | +--------+ + + + + | 07/13/ | Hospital | Infusion Therapy | Sterling Thomas, | Encounter for | | 2017 | Encounter | | MD Guero NICOLE | antineoplastic | | | | | [place] | chemotherapy | | | | | [address] | | | | | | [phone] | | | | | | | [...] | + +--------+ + + | * [facility] Medical Oncology Clinic - | Routin | [...]
--- OUTSIDE RECORDS SUMMARY | ~2018-07-10 | XMS | Encounter Summary ---
Demographics + + + | Address | [address] | | | [place] [address] | + + + | Home Phone [...] + + + | Author | [facility] | | | and Mikeana | + + + | Organization | [facility] [...] Team Providers + +------+ + | Care Software Development Advisor Name | Role | Phone | + [...] | | | | (HCC) | [place] [address] | [place], [place] | | | | | | Phone: | [address] Phone: | | | | | | [phone] | [phone] | | | | | | Fax: | Fax: | | | | | | [phone] | [phone] | + + + + + + + Encounter Details +--------+ + + + + | Date | Type | Department | Care Team | Description | +--------+ + + + + | 06/29/ | Hospital | [facility] | Aneudy, | No Show | | 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 | MED CTR MEDICAL | MD Guero Levy W | | | | | ONCOLOGY CLINIC [address] | [address] [place] | | | | | [place] | [place] [address] | | | | | [place] [address] | [phone] | | | | | [phone] | | | +--------+ + + + [...] [place] | | | | | | [address] | | | | | | [phone] | | | | | | | | +--------+ + + + + | 07/13/ | Hospital | Infusion Therapy | Sterling Thomas, | Encounter for | | 2017 | Encounter | | MD Guero NICOLE | antineoplastic | | | | | [place] | chemotherapy | | | | | [address] | | | | | | [phone] | | | | | | | | +--------+ + + + + | 07/13/ | Appointment | Nutrition | Joselin Falcon, | | | 2018 | | | RDN | | +--------+ + + + + as of this encounter Visit Diagnoses Not on filein this encounter"
--- OUTSIDE RECORDS SUMMARY | ~2018-07-10 | XMS | Encounter Summary ---
Demographics + + + | Address | [address] | | | [place] [address] | + + + | Home Phone | | + + + | Preferred Language | Unknown | + + + | Marital Status | Single | + + + | Mormon Affiliation | Unknown | + + + | Race | Unknown | + + + | Ethnic Group | Unknown | + + + Author + + + | Author | [facility] | | | and Mikeana | + + + | Organization | [facility] | | | and Mikeana [...] + +------+ + | Care Professor Of Mathematics Name | Role | Phone | + [...] | Squamous | Estefanía M, | [place] | | | | | cell | MD [address] | [place], | | | | | 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 | [place], | Phone: | | | | | (HCC) | [place] [address] | [phone] | | | | | Procedures | Phone: | Fax: | | | | | CT Treatment | [phone] | [phone] | | | | | Plan | Fax: | | | | | | Complex CT | [phone] | | | | | | [place] [...] | Squamous | Estefanía M, | [place] | | | | | cell | MD [address] | [place], | | | | | carcinoma of | [address] | [place] [address] | | | | | larynx | [place], | Phone: | | | | | (HCC) | [place] [address] | [phone] | | | | | Procedures | Phone: | Fax: | | | | | CT Treatment | [phone] | [phone] | | | | | Plan | Fax: | | | | | | Complex CT | [phone] | | | | | | TX [...] | Squamous | Estefanía M, | [place] | | | | | cell | MD [address] | [place], | | | | | carcinoma of | [address] | [place] [address] | | | | | larynx | [place], | Phone: | | | | | (HCC) | [place] [address] | [phone] | | | | | Procedures | Phone: | Fax: | | | | | CT Treatment | [phone] | [phone] | | | | | Plan | Fax: | | | | | | Complex CT | [phone] | | | | | | [place] PLAN | | | +--------+--------+ + + + + Encounter Details +--------+ + + + + | Date | Type | Department | Care Team | Description | +--------+ + + + + | 07/01/ | Hospital | [facility] | Estefanía Hairston | 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 | | | | [place], | [place] | ([facility]) | | | | [place] [address] | [address] | | | | | [phone] | | | +--------+ + + + [...] | | ([facility]), Status post | | | | | | | emergency | | | | | | | tracheotomy for | | | | | | | assistance in | | | | | | | breathing ([facility]), | | | | | | | Chronic obstructive | | | | | | | pulmonary disease, | | | | | | | unspecified COPD | | | | | | | type ([facility]) | | | | | | [...] [place] | | | | | | [address] | | | | | | [phone] | | | | | | | | +--------+ + + + + | 07/13/ | Hospital | Infusion Therapy | Sterling Thomas, | Encounter for | | 2017 | Encounter | | MD Guero NICOLE | antineoplastic | | | | | [place] | chemotherapy | | | | | [address] | | | | | | [phone] | | | | | | | [...]
--- OUTSIDE RECORDS SUMMARY | ~2018-07-10 | XMS | Encounter Summary ---
Demographics + + + | Address | [address] | | | [place] [address] | + + + | Home Phone | | + + + | Preferred Language | Unknown | + + + | Marital Status | Single | + + + | Islam Affiliation | Unknown | + + + | Race | Unknown | + + + | Ethnic Group | Unknown | + + + Author + + + | Author | [facility] | | | and Mikeana | + + + | Organization | [facility] | | | and [...] Team Providers + +------+ + | Care Ferryboat Captain Name | Role | Phone | + +------+ + | Yeyo Andesron DO | PCP | | + +------+ + Reason for Referral Evaluate & Treat (Routine) + + + + + + + | Status | Reason | Specialty | Diagnoses / | Referred By | Referred To | | | | | Procedures | Contact | Contact | + + + + + + + | Authorized | Specialty | Nutrition | Diagnoses | William, | [facility] | | | Services | | Squamous | Sterling Masters MD | Nutrition | | | Required | | cell | [address] | [address] | | | | | carcinoma of | [address] | [place] | | | | | larynx | [place], | [place], | | | | | (HCC) | [place] | [place] [address] | | | | | | [address] | Phone: | | | | | | Phone: | [phone] | | | | | | [phone] | Fax: | | | | | | Fax: | [phone] | | | | | | [phone] | | + + + + + [...] 2018 | | MED CTR MEDICAL | MD [address] | | | | | ONCOLOGY CLINIC 401 | [place], [place] | | | | | [place] | [address] | | | | | [place] [address] | [phone] | | | | | [phone] | | | +--------+ + + + [...] [place] | | | | | | [address] | | | | | | [phone] | | | | | | | | +--------+ + + + + | 07/13/ | Hospital | Infusion Therapy | Sterling Thomas, | Encounter for | | 2017 | Encounter | | MD Guero NICOLE | antineoplastic | | | | | [place] | chemotherapy | | | | | [address] | | | | | | [phone] | | | | | | | | +--------+ + + + + | 07/13/ Appointment | Nutrition | Joselin Falcon, | [...]
--- OUTSIDE RECORDS SUMMARY | ~2018-07-10 | XMS | Encounter Summary ---
Demographics + + + | Address | [address] | | | [place] [address] | + + + | Home Phone [...] + | Author | [facility] | | | and Mikeana | + + + | Organization | [facility] | | | and [...] Team Providers + +------+ + | Care Motorcycle Service Technician Name | Role | Phone | [...] | cell | MD [address] | [place] | | | | | carcinoma of | [address] | [place], [place] | | | | | larynx | [place], | [address] | | | | | (HCC) | [place] [address] | Phone: | | | | | Procedures | Phone: | [phone] | | | | | PET CT Skull | [phone] | Fax: | | | | | Base To Mid | Fax: | [phone] | | | | | Thigh | [phone] | | +--------+--------+ + + + + [...] | cell | MD [address] | [place] | | | | | carcinoma of | [address] | [place], [place] | | | | | larynx | [place], | [address] | | | | | ([facility]) | [place] [address] | Phone: | | | | | Procedures | Phone: | [phone] | | | | | PET CT Skull | [phone] | Fax: | | | | | Base To Mid | Fax: | [phone] | | | | | Thigh | [phone] | | +--------+--------+ + + + + [...] | cell | MD [address] | [place] | | | | | carcinoma of | [address] | [place], [place] | | | | | larynx | [place], | [address] | | | | | ([facility]) | [place] [address] | Phone: | | | | | Procedures | Phone: | [phone] | | | | | PET CT Skull | [phone] | Fax: | | | | | Base To Mid | Fax: | [phone] | | | | | Thigh | [phone] | | +--------+--------+ + + + + Encounter Details +--------+ + + + + | Date | Type | Department | Care Team | Description | +--------+ + + + + | 07/01/ | Hospital | [facility] | Estefanía Hairston | 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 | | | | [address] [place] | [address] [place] | ([facility]) | | | | [place] [address] | [address] | | | | | [phone] | | | +--------+ + + + [...] [place] | | | | | | [address] | | | | | | [phone] | | | | | | | | +--------+ + + + + | 07/13/ | Hospital | Infusion Therapy | Sterling Thomas, | Encounter for | | 2017 | Encounter | | MD Guero NICOLE | antineoplastic | | | | | [place] | chemotherapy | | | | | [address] | | | | | | [phone] | | | | | | | [...] millicur | | | | Intravenous, ONCE, [facility] 07/01/18 at | | PDT | ies | | | | 1115, For 1 dose | | | | | | + +--------+ + +------+------+ +---+---+ | | | +---+---+ in this encounter"
--- OUTSIDE RECORDS SUMMARY | ~2018-07-10 | XMS | Encounter Summary ---
Demographics + + + | Address | [address] | | | [place] [address] | + + + | Home Phone [...] Author | [facility] | | | and Mikeana | + + + | Organization | [facility] | | | and Mikeana [...] Team Providers + +------+ + | Care Business Applications Developer Name | Role | Phone | + [...] | carcinoma of | [address] | [address] [place] | | | | | larynx | [place], | [place], | | | | | (HCC) | [place] | [place] [address] | | | | | | [address] | Phone: | | | | | | Phone: | [phone] | | | | | | [phone] | Fax: | | | | | | Fax: | [phone] | | | | | | [phone] | | + + + + + [...] [place] | | | | | [address] [place] | [address] | | | | | [place] [address] | [phone] | | | | | [phone] | | | +--------+ + + + [...] [place] | | | | | | [address] | | | | | | [phone] | | | | | | | | +--------+ + + + + | 07/13/ | Hospital | Infusion Therapy | Sterling Thomas, | Encounter for | | 2017 | Encounter | | MD uGero NICOLE | antineoplastic | | | | | [place] | chemotherapy | | | | | [address] | | | | | | [phone] | | | | | | | [...]
--- OUTSIDE RECORDS SUMMARY | ~2018-07-10 | XMS | Encounter Summary ---
Demographics + + + | Address | [address] | | | [place] [address] | + + + | Home Phone [...] Author | [facility] | | | and [place] | + + + | Organization | [facility] | [...] Team Providers + +------+ + | Care Jazz Singer Name | Role | Phone | + +------+ + | Yeyo Anderson DO | PCP | | + +------+ + Encounter Details +--------+ + + + + | Date | Type | Department | Care Team | Description | +--------+ + + + + | 06/10/ | [facility] | [facility] | Lida Garcia | | | 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 | MED CTR ACUTE | D, PT [address] | | | | | PHYSICAL THERAPY | [place] | | | | | [address] [place] | [address] | | | | | [place] [address] | | | | | | [phone] | | | +--------+ + + + [...] [place] | | | | | | [address] | | | | | | [phone] | | | | | | | | +--------+ + + + + | 07/13/ | Hospital | Infusion Therapy | Sterling Thomas, | Encounter for | | 2017 | Encounter | | MD Guero NICOLE | antineoplastic | | | | | [place] | chemotherapy | | | | | [address] | | | | | | [phone] | | | | | | | | +--------+ + + + + | 07/13/ | Appointment | Nutrition | Joselin Falcon, | | | 2017 | | | RDN | | +--------+ + + + + as of this encounter Visit Diagnoses Not on filein this encounter"
--- OUTSIDE RECORDS SUMMARY | ~2018-07-10 | XMS | Encounter Summary ---
Demographics + + + | Address | [address] | | | [place] [address] | + + + | Home Phone | | + + + | Preferred Language | Unknown | + + + | Marital Status | Single | + + + | Quaker Affiliation | Unknown | + + + | Race | Unknown | + + + | Ethnic Group | Unknown | + + + Author + + + | Author | [facility] | | | and [place]ana | + + + | Organization | [facility] | | | and Mikeana [...] Team Providers + +------+ + | Care Soft Boarder Name | Role | Phone | + [...] | Squamous | Estefanía Warner | [address] [place] | | | | | cell | MD [address] | [place], | | | | | carcinoma of | [address] | [place] [address] | | | | | larynx | [place], | Phone: | | | | | (HCC) | [place] [address] | [phone] | | | | | Procedures | Phone: | Fax: | | | | | CT Treatment | [phone] | [phone] | | | | | Plan | Fax: | | | | | | Complex CT | [phone] | | | | | | [place] [...] [place] | | | | | ([facility]) | [place] [address] | [place], [place] | | | | | | Phone: | [address] Phone: | | | | | | [phone] | [phone] | | | | | | Fax: | Fax: | | | | | | [phone] | [phone] | + + + + + + [...] | cell | MD [address] | [place] | | | | | carcinoma of | [address] | [place] | | | | | larynx | [place], | [address] | | | | | ([facility]) | [place] [address] | Phone: | | | | | Procedures | Phone: | [phone] | | | | | PET CT Skull | [phone] | Fax: | | | | | Base To Mid | Fax: | [phone] | | | | | Thigh | [phone] | | +--------+--------+ + + + + [...] [address] | | | | | [place] OFFICE | [address]ra [address] | [address] | | | | | OUTPATIENT | [place], | [place], | | | | | VISIT 25 | [place] [address] | [place] [address] | | | | | MINUTES | Phone: | Phone: | | | | | | [phone] | [phone] | | | | | | Fax: | Fax: | | | | | | [phone] | [phone] | +--------+ + + + + + Encounter Details +--------+ + + + + | Date | Type | Department | Care Team | Description | +--------+ + + + + | 06/25/ | Hospital | [facility] | Estefanía Hairston | 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 | | | | ONCOLOGY CLINIC [address] | [place], [place] | (HCC) (Primary Dx) | | | | [address] [facility] | [address] | | | | | [place] [address] | | | | | | [phone] | | | +--------+ + + + [...] [place] | | | | | | [address] | | | | | | [phone] | | | | | | | | +--------+ + + + + | 07/13/ | Hospital | Infusion Therapy | Sterling Thomas, | Encounter for | | 2017 | Encounter | | MD Guero NICOLE | antineoplastic | | | | | [place] | chemotherapy | | | | | [address] | | | | | | [phone] | | | | | | | [...] | + +--------+ + + | * [facility] Medical Oncology Clinic - | Routin | [...]
--- OUTSIDE RECORDS SUMMARY | ~2018-07-10 | XMS | Clinical Summary ---
Demographics + + + | Address | [address] | | | [place] [address] | + + + | Home Phone | | + + + | Preferred Language | Unknown | + + + | Marital Status | Single | + + + | Restorationist Affiliation | Unknown | + + + | Race | Unknown | + + + | Ethnic Group | Unknown | + + + Author + + + | Author | [facility] | | | and Mikeana | + + + | Organization | [facility] | | | and [...] Team Providers + +------+ + | Care Recoater Name | Role | Phone | + [...] | | ([facility]), Status post | | | | | | | | emergency | | | | | | | | tracheotomy for | | | | | | | | assistance in | | | | | | | | breathing ([facility]), | | | | | | | | Chronic obstructive | | | | | | | | pulmonary disease, | | | | | | | | unspecified COPD | | | | | | | | type ([facility]) | | | | | | | [...] | | ([facility]) (Primary Dx) | +--------+ + + + + | 06/10/ | Hospital | | Lida Garcia | | | 2017 | Encounter | | D, PT | | +--------+ + + + + | 06/01/ | Hospital | | Ac Hines, | Tracheostomy, acute | | 2018 - | Encounter | | MD | management ([facility]) | | | | | | (Primary Dx); | | 06/10/ | | | | Bilateral foot pain; | | 2017 | | | | Right leg pain; | | | | | | Laryngeal carcinoma | | | | | | ([facility]); Status post | | | | | | emergency | | | | | | tracheotomy for | | | | | | assistance in | | | | | | breathing ([facility]); | | | | | | Chronic obstructive | | | | | | pulmonary disease, | | | | | | unspecified COPD | | | | | | type ([facility]); Smoker; | | | | | | [...] | | | MRN: | | | [id number] | | | Date of | | [...] | | transferred | | | to [facility] | | | for acute | | | care- | | | Admitted | | | for | | | management | | | of new | | | trach- Dr. | | | [place] | | | evaluated | | | [...] | | with Dr. | | | [place] | | | moker/COPD: | | [...] | | re-check--i | | | n Rowan | | | | | | officeConta | | | ct | | | information | | | :[address] | | [address], [place] | | | [place] | | | [place] | | | [id number] | | | | | | Discharge [...] | | | Wilmer | | | [place] | | | Medical | | | [...] [place] | | | | | | [address] | | | | | | [phone] | | | | | | | | +--------+ + + + + | 07/13/ | Hospital | | Sterling Thomas, | Encounter for | | 2017 | Encounter | | MD [address] | antineoplastic | | | | | [place] | chemotherapy | | | | | [address] | | | | | | [phone] | | | | | | | [...] | | ([facility]) | results section. | + +--------+ + + + | CT TREATMENT PLAN | Routin | 07/01/2018 | Squamous cell | Results for this | | COMPLEX | e | 0954 PDT | carcinoma of larynx | procedure are in the | | | | | ([facility]) | results section. | + +--------+ + [...] [facility] | | | | | [facility] | | | | | CENTER [...] [address] | [place] | [phone] | | [facility] | | [address] | | | - LABORATORY | | | | + + + + + | [facility] | [address] | [place] | | | [facility] | | [address] | | | - LABORATORY | | | | + + + + + Phosphorus (06/06/2018605) + +-------+ + + | Component | Value | Ref Range | Performed At | + +-------+ + + | Phosphorus | 3.5 | 2.5 - 4.6 mg/dL | [facility] | | | | | [facility] | | | | | CENTER - | | | | | LABORATORY | + +-------+ + + + + | Specimen | + + | Blood | + + + + + + + | Performing | Address | City/State/Zipcode | Phone Number | | Organization | | | | + + + + + | [facility] | [address] | [place], [place] | [phone] | | [facility] | | [address] | | | - LABORATORY | | | | + + + + + | [facility] | [address] | [place], [place] | | | [facility] | | [address] | | | - LABORATORY | | | | + + + + + Magnesium (06/06/2018605) + +-------+ + + | Component | Value | Ref Range | Performed At | + +-------+ + + | MG | 2.0 | 1.8 - 2.5 mg/dL | [facility] | | | | | [facility] | | | | | CENTER - | | | | | LABORATORY | + +-------+ + + + + | Specimen | + + | Blood | + + + + + + + | Performing | Address | City/State/Zipcode | Phone Number | | Organization | | | | + + + + + | [facility] | [address] | [place] | [phone] | | [facility] | | [address] | | | - LABORATORY | | | | + + + + + | [facility] | [address] | [place], [place] | | | [facility] | | [address] | | | - LABORATORY | | [...] + | [facility] | [address] | [place], [place] | [phone] | | [facility] | | [address] | | | - LABORATORY | | | | + + + + + | [facility] | [address] | [place], [place] | | | [facility] | | [address] | | | - LABORATORY | | [...] >=60 mL/min/1.73m2 | [facility] | | MACEDONIAN | FILTRATION | | [facility] | | | RATE,ESTIMATED mL/min | | CENTER - | | | /1.48x8Hazl than 60 | | LABORATORY | | [...] | 8.3 - 10.5 mg/dL | [facility] | | | | | [facility] | | | | | CENTER - | | | | | LABORATORY | + + + + + | BUN/CREA | 18.3 | | [facility] | | | | | [facility] | | | | | CENTER [...] + | [facility] | [address] | [place], [place] | [phone] | | [facility] | | [address] | | | - LABORATORY | | | | + + + + + | [facility] | [address] | [place] | | | [facility] | | [address] | | | - LABORATORY | | | | + + + + + Culture, MRSA (06/01/2018 1659) + + + + + | Component | Value | Ref Range | Performed At | + + + + + | Culture | Negative for MRSA by | | [facility] | | | chromogenic agar method | | [facility] | | | | | [facility] [...] + | [facility] | [address] | [place] | [phone] | | [facility] | | [address] | | | - LABORATORY | | | | + + + + + | [facility] | [address] | [place], [place] | | | [facility] | | [address] | | | - LABORATORY | | [...] +--------+ +---------+ | MEDICARE | MEDICA | [id number] | Medica | [phone]- | | | [...] 1955 | [phone] | [place] [address] | | | emerita | | | [phone] | | + +--------+ +--------+ + +
--- OUTSIDE RECORDS SUMMARY | ~2018-07-10 | XMS | Encounter Summary ---
Demographics + + + | Address | [address] | | | [place] [address] | + + + | Home Phone | | + + + | Preferred Language | Unknown | + + + | Marital Status | Single | + + + | Holiness Affiliation | Unknown | + + + | Race | Unknown | + + + | Ethnic Group | Unknown | + + + Author + + + | Author | [facility] | | | and Mikeana | + + + | Organization | [facility] [...] Team Providers + +------+ + | Care Appliquer Zigzag Name | Role | Phone | + [...] | | | | (HCC) | [place] [address] | [place], [place] | | | | | | Phone: | [phone] Phone: | | | | | | [phone] | [phone] | | | | | | Fax: | Fax: | | | | | | [phone] | [phone] | + + + + + + + Encounter Details +--------+ + + + + | Date | Type | Department | Care Team | Description | +--------+ + + + + | 06/29/ | Hospital | [facility] | Aneudy, | No Show | | 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 | [facility] | MD Guero Levy [address] | | | | | ONCOLOGY CLINIC [address] [place] | | | | | [address] [place] | [place] [address] | | | | | [place] [address] | [phone] | | | | | [phone] | | | +--------+ + + + [...] [place] | | | | | | [address] | | | | | | [phone] | | | | | | | | +--------+ + + + + | 07/13/ | Hospital | Infusion Therapy | Sterling Thomas, | Encounter for | | 2017 | Encounter | | MD Guero NICOLE | antineoplastic | | | | | [place] | chemotherapy | | | | | [address] | | | | | | [phone] | | | | | | | | +--------+ + + + + | 07/13/ | Appointment | Nutrition | Joselin Falcon, | | | 2018 | | | RDN | | +--------+ + + + + as of this encounter Visit Diagnoses Not on filein this encounter"
--- OUTSIDE RECORDS SUMMARY | ~2018-07-10 | XMS | Encounter Summary ---
Demographics + + + | Address | [address] | | | [place] [address] | + + + | Home Phone [...] Team Providers + +------+ + | Care Assistant Sales Manager Name | Role | Phone | [...] | | | | (HCC) | [place] [address] | [facility], [place] | | | | | | Phone: | [address] Phone: | | | | | | [phone] | [phone] | | | | | | Fax: | Fax: | | | | | | [phone] | [phone] | + + + + + + + Encounter Details +--------+ + + + + | Date | Type | Department | Care Team | Description | +--------+ + + + + | 06/30/ | Hospital | [facility] | Sterling Thomas, | 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 | | | | ONCOLOGY CLINIC [address] | [place] | (HCC) (Primary Dx) | | | | [address] | [address] | | | | | [place] [address] | [phone] | | | | | [phone] | | | +--------+ + + + [...] [place] | | | | | | [address] | | | | | | [phone] | | | | | | | | +--------+ + + + + | 07/13/ | Hospital | Infusion Therapy | Sterling Thomas, | Encounter for | | 2017 | Encounter | | MD Guero NICOLE | antineoplastic | | | | | [place] | chemotherapy | | | | | [address] | | | | | | [phone] | | | | | | | [...]
[~2018-07-10 08:11] MED LIST changes: +ALBUTEROL2.5 MG/3 M INH; +DIAZEPAM5 MG PO; +HYDROCODON-ACE1 EA10 PO; +NICOTINE PATCH1 EAC1 TD
--- OUTSIDE RECORDS SUMMARY | 2018-07-10 08:16 | XMS ---
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 No recent Security Events currently on file CRITERIA MET - [facility] - Has Care Guidelines - [facility] - 2 Visits in 30 Days CARE PROVIDERS SHELLIE MÁRQUEZ Internal Medicine 06/18/2018-Current PHONE: [phone] Guidelines Source: [facility] Guidelines Date: 06/17/2018 Care Coordination: PATIENT IS UNDER SERVICES AT [facility].\T\nbsp; IF PATIENT IS SEEN IN THE ED, PLEASE NOTIFY THEM AT [phone].\T\nbsp; IF AFTER HOURS OR ON WEEKENDS PLEASE CALL SWITCHBOARD AT [phone] AND HAVE ON-CALL RN NOTIFIED. Care History Medical/Surgical 06/18/2018 [facility] - Patient is currently established with [facility]. If patient is seen in the ED during business hours. Please contact CHWs at [facility]. Care Recommendation: This patient has had 5 or more Emergency Department visits in the last 12 months.\T\nbsp; Patient requires education on the scope and purpose of the ED as an acute care provider not a Primary Care Provider and should not be utilized for chronic conditions.\T\nbsp; These are guidelines and the provider should exercise clinical judgment when providing care. E.D. VISIT COUNT (12 MO.) 3 [facility] TOTAL 3 NOTE: Visits indicate total known visits. 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 - Urinary tract infection, site not specified - Nicotine dependence, unspecified, uncomplicated - SOD CUTTER (CURRENT) USE OF ORAL HYPOGLYCEMIC DRUGS INPATIENT VISIT TRACKING (12 MO.) [facility] DIAGNOSES: - Encounter for attention to tracheostomy - New trach - Nicotine dependence, unspecified, uncomplicated - Pain in right leg - Pain in right foot - Pain in left foot - Chronic obstructive pulmonary disease, unspecified - Malignant neoplasm of larynx, unspecified - Tracheostomy status [email or web address]
[2018-07-10] MEDS ORDERED: HYDROCODONE-IB1 EACH PO (09:45)
[2018-07-10] MEDS ORDERED: LEVAQUIN500 MG PO (09:45)
== END 2018-07-10 09:57 | disposition home or self-care (01) ==
LOC: ED 08:11
DX: J40 Bronchitis, not specified as acute or chronic (principal); C32.9 Malignant neoplasm of larynx, unspecified; F17.200 Nicotine dependence, unspecified, uncomplicated; Z88.5 Allergy status to narcotic agent; Z79.899 Other long term (current) drug therapy; E11.9 Type 2 diabetes mellitus without complications
CPT/HCPCS: 31720; 71045; 80053; 83605; 85025; 94640; 96374; 99283; J0696

== ENCOUNTER 2018-07-16 23:30 | Emergency (ER) | payer MEDICARE, OTHER ==
[~2018-07-16] VITALS: Ht 154.9 cm; Wt 66.2 kg
--- OUTSIDE RECORDS SUMMARY | ~2018-07-16 | XMS | Encounter Summary ---
Demographics + + + | Address | [address] | | | [place] [address] | + + + | Home Phone | | + + + | Preferred Language | Unknown | + + + | Marital Status | Single | + + + | Jewish Affiliation | Unknown | + + + | Race | Unknown | + + + | Ethnic Group | Unknown | + + + Author + + + | Author | [facility] | | | and Mikeana | + + + | Organization | 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 | [place] | [place] | | | | | (HCC) | [place] [address] | [place], [place] | | | | | | Phone: | [phone] Phone: | | | | | | [phone] | [phone] | | | | | | Fax: | Fax: | | | | | | [phone] | [phone] | + + + + + + + Encounter Details +--------+ + + + + | Date | Type | Department | Care Team | Description | +--------+ + + + + | 06/29/ | Hospital | [facility] | Aneudy, | No Show | | 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 | [facility] CTR MED[facility] | MD Guero Levy W | | | | | ONCOLOGY CLINIC [address] [place] | | | | | [place] | [place] [address] | | | | | [place] [address] | [phone] | | | | | [phone] | | | +--------+ + + + + Social History + + + +--------+------+ | Tobacco Use | Types | Packs/Day | Years | Date | | | | | Used | | + + + +--------+------+ | Current Every Day | Cigarettes | 2 | 45 | | | Smoker | [...] + + + + | 07/23/ | Appointment | Oncology | Jamie Andres | | | 2017 | | | MD Guero Jackson | | | | | | [address] | | | | | | [place] [address] | | | | | | [phone] | | | | | | | | +--------+ + + + + | 08/03/ | Appointment | Oncology | Sterling Thomas, | | | 2017 | | | MD [address]ero NICOLE | | | | | | [place] | | | | | | [address] | | | | | | [phone] | | | | | | | | +--------+ + + + + | 08/03/ | Appointment | Infusion Therapy | | | | 2017 | | | | | +--------+ + + + + | 08/03/ | Appointment | Nutrition | Joselin Falcon, | | | 2017 | | | RDN | | +--------+ + + + + | 08/04/ | Appointment | Infusion Therapy | | | | 2017 | | | | | +--------+ + + + + | 08/05/ | Appointment | Infusion Therapy | | | | 2017 | | | | | +--------+ + + + + as of this encounter Visit Diagnoses Not on filein this encounter"
--- OUTSIDE RECORDS SUMMARY | ~2018-07-16 | XMS | Encounter Summary ---
Demographics + + + | Address | [address] | | | [place] [address] | + + + | Home Phone | | + + + | Preferred Language | Unknown | + + + | Marital Status | Single | + + + | Mormon Affiliation | Unknown | + + + | Race | Unknown | + + + | Ethnic Group | Unknown | + + + Author + + + | Author | [facility] | | | and Mikeana | + + + | Organization | [facility] | | | and Mikeana [...] Team Providers + +------+ + | Care Sand Cleaning Machine Operator Name | Role | Phone | + +------+ + PCP | Unavailable | + +------+ + Encounter Details +--------+ + + + + | Date | Type | Department | Care Team | Description | +--------+ + + + + | 06/25/ | Hospital | [facility] | Estefanía Hairston | | | 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 | MED CTR RADIATION | MD Alana [address] | | | | | ONCOLOGY [address] [place], [place] | | | | | [place], | [address] | | | | | [place] [address] | | | | | | [phone] | | | +--------+ + + + [...] | | | + +---+---+---+ + + +---------+ + | Alcohol Use [...] + + + as of this encounter Medications at Time of Discharge [...] | | | 18 | | | solution | hours as needed [...] 0 | 06/10/20 | | | ([facility]) | Does not apply route | | | 18 | | | MISCIndications: | as needed. | | | | | | Laryngeal carcinoma | | | | | | | ([facility]), Status post | | | | | | | emergency | | | | | | | tracheotomy for | | | | | | | assistance in | | | | | | | breathing ([facility]), | | | | | | | Chronic obstructive | | | | | | | pulmonary disease, | | | | | | | unspecified COPD | | | | | | | type ([facility]) | | | | | | + + + +---------+ + + | cyanocobalamin | Take 1,000 mcg by | | | | | | (VITAMIN B-12) 1000 | mouth Daily. | | | | 8 | | MCG tablet | | | | | | + + + +---------+ + + as of this encounter Plan [...] | | | | | [place] [address] | | | | | | [phone] | | | | | | | | +--------+ + + + + | 08/03/ | Appointment | Oncology | Sterling Thomas, | | | 2017 | | | MD Guero NICOLE | | | | | | [place] | | | | | | [address] | | | | | | [phone] | | | | | | | [...]
--- OUTSIDE RECORDS SUMMARY | ~2018-07-16 | XMS | Clinical Summary ---
Demographics + + + | Address | [address] | | | [place] [address] | + + + | Home Phone | | + + + | Preferred Language | Unknown | + + + | Marital Status | Single | + + + | Episcopal Affiliation | Unknown | + + + | Race | Unknown | + + + | Ethnic Group | Unknown | + + + Author + + + | Author | [facility] | | | and Mikeana | + + + | Organization | [facility] | | | and Mikeana | [...] Team Providers + +------+ + | Care Freezing Room Worker Name | Role | Phone | + [...] | | | | | | | ([facility]), Status post | | | | | | | | emergency | | | | | | | | tracheotomy for | | | | | | | | assistance in | | | | | | | | breathing ([facility]), | | | | | | | | Chronic obstructive | | | | | | | | pulmonary disease, | | | | | | | | unspecified COPD | | | | | | | | type ([facility]) | | | | | | | [...] by | 60 vial | 0 | 08/2 | | Activ | | mL nebulizer | nebulization every 4 | | | 01/05 | | e | | solution | hours as needed for | | | 18 | | | | | Wheezing or | | | | | | | | Shortness of Breath. | | | | | | + + + +---------+------+------+-------+ | diazePAM (VALIUM) | Take 1 tablet by | | | 05/20 | | Activ | | 5 mg tablet | mouth nightly as | | | 06/07 | | e | | | needed. | | | 18 | | | + + + +---------+------+------+-------+ | Cholecalciferol | Take by mouth. | | | | | Activ | | (VITAMIN D3 PO) | | | | | | e | + + + +---------+------+------+-------+ | levoFLOXacin | Take 1 tablet by | | | 06/20 | | Activ | | (LEVAQUIN) 500 mg | mouth Daily. | | | 12/08 | | e | | tablet | | | | 18 | | | + + + +---------+------+------+-------+ | ondansetron | Take 1 tablet by | 30 | 3 | 09/2 | | Activ | | (ZOFRAN) 8 MG | mouth every 8 hours | tablet | | 5/20 | | e | | tabletIndications: | as needed | | | 18 | | | | Squamous cell | (Nausea/Vomiting). | | | | | | | carcinoma of larynx | | | | | | | | ([facility]), Encounter for | | | | | | | | antineoplastic | | | | | | | | chemotherapy | | | | | | | + + + +---------+------+------+-------+ | LORazepam (ATIVAN) | Take 1 tablet by | 20 | 5 | 09/2 | | Activ | | 1 mg | mouth every 6 hours | tablet | | 5/20 | | e | | tabletIndications: | as needed | | | 18 | | | | Squamous cell | (Nausea/Vomiting). | | | | | | | carcinoma of larynx | | | | | | | | ([facility]), Encounter for | | | | | | | | antineoplastic | | | | | | | | chemotherapy | | | | | | | + + + +---------+------+------+-------+ | OLANZapine | Take 2 tablets by | 30 | 0 | 09/2 | 09/2 | Activ | | (ZYPREXA) 5 mg | mouth nightly for 4 | tablet | | 03/07 | 07/08 | e | | tabletIndications: | days. starting Day 1 | | | 18 | 18 | | | Squamous cell | of chemotherapy. | | | | | | | carcinoma of larynx | | | | | | | | (HCC), Encounter for | | | | | | | | antineoplastic | | | | | | | | chemotherapy | | | | | | | + + + +---------+------+------+-------+ | docusate sodium | Take 100 mg by mouth | 60 | 0 | 05/20 | 090 | Disco | | (COLACE) 100 MG | 2 times daily. | capsule | | 01/05 | 05/07 | ntinu | | capsule | | | | 18 | 18 | ed | + + + +---------+------+------+-------+ | nicotine | Place 1 patch onto | 30 | 0 | 08/2 | 09/0 | Disco | | (NICODERM) 21 mg/24 | the skin Daily. | patch | | 02/05 | 05/07 | ntinu | | hr | | | | 18 | 18 | ed | + + + +---------+------+------+-------+ | polyethylene | Take 1 diluted | | 0 | 08/2 | 09/0 | Disco | | glycol (MIRALAX) | packet by mouth | | | 3/20 | 7/20 | ntinu | | packet | Daily. | | | 18 | 18 | ed | + + + +---------+------+------+-------+ | senna (SENOKOT) | Take 1 tablet by | 120 | | 08/2 | 09/0 | Disco | | 8.6 mg tablet | mouth 2 times daily | tablet | | 3/20 | 7/20 | ntinu | | | (before meals). | | | 18 | 18 | ed | + + + +---------+------+------+-------+ | | Take 3 mLs by | 90 mL | 0 | 08/2 | 09/0 | Disco | | albuterol-ipratropiu | nebulization 3 times | | | 3/20 | 7/20 | ntinu | | m 2.5-0.5 mg/3 mL | daily. | | | 18 | 18 | ed | | SOLN | | | | | | | + + + +---------+------+------+-------+ | VENTOLIN HFA 108 | Inhale 2 puffs into | | 0 | 07/1 | 09/0 | Disco | | (90 Base) MCG/ACT | the lungs EVERY 4 TO | | | / | /20 | ntinu | | inhaler | 6 HOURS NEEDED. | | | 18 | 18 | ed | + + + +---------+------+------+-------+ | cyanocobalamin | Take 1,000 mcg by | | | | 09 | Disco | | (VITAMIN B-12) 1000 | mouth Daily. 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 | | | | | | ([facility]); Encounter for | | | | | | antineoplastic | | | | | | chemotherapy | +--------+ + + + + | 07/14/ | Hospital | | Sterling Thomas | Squamous cell | 2017 | 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 | | | | | | ([facility]); Encounter for | | | | | [...] | | | | ISAAC Warner | (HCC) | +--------+ + + + [...] 2017 | Encounter | | MD | antineoplastic | | | | | [...] larynx | | | | | | ([facility]) | +--------+ + + + + | 07/01/ | Hospital | | Estefanía Hairston | 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 | | | | | | ([facility]) | +--------+ + + + + | 06/30/ | Hospital | | Sterling Thomas | 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 | | | | | | ([facility]) (Primary Dx) | +--------+ + + + + | 06/30/ | Telephone | | Sterling Thomas, | IDT Note | | 2018 | | | MD | | +--------+ + + + + | 06/30/ | Telephone | | Christina Bell Note | | 2017 | | | MALU Rodriguez | | +--------+ + + + + | 06/29/ | Hospital | | Christina Amado Show | 2017 | Encounter | | Manuel Waldron MD | | +--------+ + + + + | 06/25/ | Hospital | | Estefanía Hairston | | 2017 | Encounter | Christina Warner MD | | +--------+ + + + + | 06/25/ | Hospital | | Estefanía Hairston | 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 Alana | carcinoma of larynx | | | | | | (HCC) (Primary Dx) | +--------+ + + + + | 06/10/ | Hospital | | Lida Garcia | | | 2017 | Encounter | | D, PT | | +--------+ + + + + | 06/01/ | Hospital | | Ac Hines, | Tracheostomy, acute | | 2017 - | Encounter | | MD | management ([facility]) | | | | | | (Primary Dx); | | 06/10/ | | | | Bilateral foot pain; | | 2017 | | | | Right leg pain; | | | | | | Laryngeal carcinoma | | | | | | ([facility]); Status post | | | | | | emergency | | | | | | tracheotomy for | | | | | | assistance in | | | | | | breathing ([facility]); | | | | | | Chronic obstructive | | | | | | pulmonary disease, | | | | | | unspecified COPD | | | | | | type ([facility]); Smoker; | | | | | | Squamous cell | | | | | | carcinoma of larynx | | | | | | ([facility]) | +--------+ + + + + +---+ [...] | | | original.DI | | | SCHARGE | | | SUMMARYPati | | | ent Name: | | | Delita | | | Lidia | | | Doroteo | | | : | | | 1955 | | | MRN: | | | [id number] | | | Date of | | | Admission: | | | 06/01/2018 | | | Date of | | | Discharge: | | | 06/10/18 | | | Admitting | | | Physician: | | | Ac M | | | Umpire, | | | MD | | | Discharging | | | Physician: | | | Ashkan | | | H. Dennis, | | | MD | | | Primary | | | Care | | | Provider: | | | Yeyo | | | Justin, DO | | | | | | [...] | | : Dr. | | | Umpire of | | | ENT/speech | | [...] | | transferred | | | to [facility] | | | for acute | | | care- | | | Admitted | | | for | | | management | | | of new | | | trach- Dr. | | | Umpire | | | evaluated | | | [...] | | discharged | | | home 8/23 | | | with trach | | | supplies, | | | home health | | | | | | ST/PT/nursi | | | ng- | | | Eating/drin | | | meilza well, | | | no | | [...] | | with Dr. | | | Umpire S | | | moker/COPD: | | [...] | | Ac M. | | | Donny, | | | MD In 5 | | | days. | | | Specialty: | | | | | | Otolaryngol | | | ogyWhy: | | | For wound | | | re-check--i | | | n An | | | | | | officeConta | | | ct | | | information | | | :[address] | | [address], [place] | | | [address] | | | [place] | | | [phone] | | [phone] | | | Discharge | | | [...] | signed by: | | | Ashkan H. | | | MD Jeannie, | | | 06/10/2018 | | | 10:44 | | | [place] | | | [facility] | | [...] + + + | Blood Pressure | 175/92 | 07/15/2018 1351 PDT | + + + + | Pulse | 80 | 07/15/20181350 PDT | + + + + | Temperature | 36 C (96.8 F) | 07/15/20181350 PDT | + + + + | Respiratory Rate | 22 | 07/15/20181350 PDT | + + + + | Oxygen Saturation | 95% | 07/15/20181350 PDT | + + + + | Inhaled Oxygen | - | - | | Concentration | | | + + + + | Weight | 66.9 kg (147 lb 7.8 | 07/15/20181350 PDT | | | oz) | | + + + + | Height | 156.2 cm (5' 1.5") | 06/30/2018 1502 PDT | + + + + | Body Mass Index | 27.42 | 07/15/2018 1351 PDT | + + + + Plan of Treatment +--------+ + + + + | Date | Type | Specialty | Care Team | Description | +--------+ + + + + | 07/23/ | Appointment | | Jamie Andres | | | 2017 | | | MD Manuel [address] | | | | | [address] | | | | | | [place] [address] | | | | | | [phone] | | | | | | | | +--------+ + + + + | 08/03/ | Appointment | | Sterling Thomas, | | | 2017 | | | MD [address] | | | | | | [place] | | | | | | [address] | | | | | | [phone] | | | | | | | | +--------+ + + + + | 08/03/ | Appointment | | | | | 2017 | | | | | +--------+ + + + + | 08/03/ | Appointment | | Joselin Falcon, | | | 2017 | | | RDN | | +--------+ + + + + | 08/04/ | Appointment | | | | | 2017 | | | | | +--------+ + + + + | 08/05/ | Appointment | | | | | 2017 | | [...] | + + + + + | Lung Cancer | | | | | Screening | 1 | | | + + + + [...] in the | | | | | ([facility]) Encounter for | results section. | | | | | antineoplastic | | | | | | chemotherapy | | + +--------+ + + + | MAGNESIUM | STAT | 07/13/2018 | Squamous cell | Results for this | | | | 0824 PDT | carcinoma of larynx | procedure are in the | | | | | ([facility]) | results section. | + +--------+ + + + | CBC WITH | STAT | 07/13/2018 | Squamous cell | Results for this | | DIFFERENTIAL | | 0824 PDT | carcinoma of larynx | procedure are in the | | | | | ([facility]) | results section. | + +--------+ + + + | COMPREHENSIVE | STAT | 07/13/2018 | Squamous cell | Results for this | | METABOLIC PANEL | | 0824 PDT | carcinoma of larynx | procedure are in the | | | | | ([facility]) | results section. | + +--------+ + + + | PET CT SKULL BASE TO | Routin | 07/01/2018 | Squamous cell | Results for this | | MID THIGH | e | 1323 PDT | carcinoma of larynx | procedure are in the | | | | | ([facility]) | results section. | + +--------+ + + + | CT TREATMENT PLAN | Routin | 07/01/2018 | Squamous cell | Results for this | | COMPLEX | e | 0954 PDT | carcinoma of larynx | procedure are in the | | | | | ([facility]) | results section. | + +--------+ + [...] + + from Last 3 Months Results Creatinine (07/16/2018 1052) + + + + + | Component | Value | Ref Range | Performed At | + + + + + | Creatinine, | 0.93 | 0.60 - 1.30 mg/dL | [facility] | | Serum/Plasma | | | [facility] | | | | | CENTER - | | | | | LABORATORY | + + + + + | eGFR if not | >60Comment: GLOMERULAR | >=60 mL/min/1.73m2 | [facility] | | [place] | FILTRATION | | [facility] | | | RATE,ESTIMATED mL/min | | CENTER - | | | /1.29l7Xjpq than 60 | | LABORATORY | | [...] + | [facility] | [address] | [place] | [phone] | | [facility] | | [address] | | | - LABORATORY | | | | + + + + + | [facility] | [address] | [place] | | | [facility] | | [address] | | | - LABORATORY | | | | + + + + + CBC with Differential (07/13/2018823) + + + + + | Component | Value | Ref Range | Performed At | + + + + + | WBC | 7.6 | 4.0 - 11.0 K/uL | [facility] | | | | | [facility] | | | | | CENTER [...] | + + + + + | [facility] | [address] | [place] | [phone] | | [facility] | | [address] | | | - LABORATORY | | | | + + + + + | [facility] | [address] | [place] | | | [facility] | | [address] | | | - LABORATORY | | | | + + + + + Magnesium (07/13/2018823)Only the most recent of 2 results within the time period is incl uded. + +-------+ + + | Component | Value | Ref Range | Performed At | + +-------+ + + | Magnesium | 2.0 | 1.8 - 2.5 mg/dL | [facility] | | | | | [facility] [...] + | [facility] | [address] | [place] | [phone] | | [facility] | | [address] | | | - LABORATORY | | | | + + + + + | [facility] | [address] | [place] | | | [facility] | | [address] | | | - LABORATORY | | [...] | >60Comment: GLOMERULAR | >=60 mL/min/1.73m2 | [facility] | | [place] | FILTRATION | | [facility] | | | RATE,ESTIMATED mL/min | | CENTER - | | | /1.51j1Ltjp than 60 | | LABORATORY | | [...] 9.1 | 8.3 - 10.5 mg/dL | [facility] | | | | | [facility] | | | | | CENTER - | | | | | LABORATORY | + + + + + | ALBUMIN | 3.7 | 3.2 - 5.0 g/dL | [facility] | | | | | [facility] | | | | | CENTER [...] | | appended report. These | | [facility] | | | results have [...] + | LUZ[facility]NADEEM | 19.5 | | [facility] | | | | | [facility] [...] + + | [facility] | [address] | [place] | [phone] | | [facility] | | [address] | | | - LABORATORY | | | | + + + + + | [facility] | [address] | [place] | | | [facility] | | [address] | | | - LABORATORY | | | | + + + + + PET CT Skull Base To Mid Thigh (07/01/2018 1323) + + -----+ | Narrative | Performed At | + + -----+ | PET CT SKULL | [facility] | | BASE TO MID THIGH 07/01/2018 [...] | Procedure Note | + + | Garcia, Rad Results In - 07/02/2018 1214 PDT [...] | | | + +---------+ + + CBC no Differential (06/06/2018605) + [...] | | | | | [facility] | | | | | CENTER - | | | | | LABORATORY | + +-------+ + + + + | Specimen | + + | Blood | + + + + + + + | Performing | Address | City/State/Zipcode | Phone Number | | Organization | | | | + + + + + | [facility] | [address] | [place] | [phone] | | [facility] | | [address] | | | - LABORATORY | | | | + + + + + | [facility] | [address] | [place] | | | [facility] | | [address] | | | - LABORATORY | | | | + + + + + Phosphorus (06/06/2018605) + +-------+ + + | Component | Value | Ref Range | Performed At | + +-------+ + + | Phosphorus | 3.5 | 2.5 - 4.6 mg/dL | [facility] | | | | | [facility] | | | | | CENTER - | | | | | LABORATORY | + +-------+ + + + + | Specimen | + + | Blood | + + + + + + + | Performing | Address | City/State/Zipcode | Phone Number | | Organization | | | | + + + + + | [facility] | [address] | [place] | [phone] | | [facility] | | [address] | | | - LABORATORY | | | | + + + + + | [facility] | [address] | [place], [place] | | | [facility] | | [address] | | | - LABORATORY | | | | + + + + + Calcium, Ionized (06/06/2018605) + + + + + | Component | Value | Ref Range | Performed At | + + + + + | Ionized Calcium | 5.68 (H) | 4.48 - 5.28 mg/dL | [facility] | | | | | [facility] | | | | | CENTER [...] + | [facility] | [address] | [place] | [phone] | | [facility] | | [address] | | | - LABORATORY | | | | + + + + + | [facility] | [address] | [place] | | | [facility] | | [address] | | | - LABORATORY | | | | + + + + + Basic Metabolic Panel (06/06/2018605) + + + + + | Component | Value | Ref Range | Performed At | + + + + + | NA | 137 | 136 - 149 mmol/L | [facility] | | | | | [facility] | [facility] | | | C[facility] - | | | | | LABORATORY | + + + + + | K | 3.9 | 3.5 - 5.1 mmol/L | [facility] | | | | | [facility] [...] 11 | 7 - 18 mg/dL | [facility] | | | | | [facility] | | | | | CENTER - | | | | | LABORATORY | + + + + + | Creatinine, | 0.60 | 0.60 - 1.30 mg/dL | [facility] | | Serum/Plasma | | | [facility] | | | | | CENTER - | | | | | LABORATORY | + + + + + | eGFR if not | >60Comment: GLOMERULAR | >=60 mL/min/1.73m2 | [facility]. | | [place] | FILTRATION | | [facility] | | | RATE,ESTIMATED mL/min | | CENTER - | | | /1.07w2Wpwm than 60 | | LABORATORY | | [...] 8.9 | 8.3 - 10.5 mg/dL | [facility] | | | | | [facility] | | | | | CENTER - | | | | | LABORATORY | + + + + + | BUN/CREA | 18.3 | | [facility] | | | [...] + | [facility] | [address] | [place] | [phone] | | [facility] | | [address] | | | - LABORATORY | | | | + + + + + | [facility] | [address] | [place] | | | [facility] | | [address] | | | - LABORATORY | | | | + + + + + Culture, MRSA (06/01/20181658) + + + + + | Component | Value | Ref Range | Performed At | + + + + + | Culture | Negative for MRSA by | | [facility] | | | chromogenic agar method | | [facility] | | | | | CENTER - | | | | | LABORATORY | + + + + + + + | Specimen | + + | Tissue - Nares | + + + + + + + | Performing | Address | City/State/Zipcode | Phone Number | | Organization | | | | + + + + + | [facility] | [address] | [place] | [phone] | | [facility] | | [address] | | | - LABORATORY | | | | + + + + + | [facility] | [address] | [place] | | | [facility] | | [address] | | | - LABORATORY | | | | + + + + + from Last 3 Months Insurance + +--------+ +--------+ +---------+ | Payer | Benefi | Subscriber | Type | Phone | Address | | | t Plan | ID | | | | | | / | | | | | | | Group | | | | | + +--------+ +--------+ +---------+ | MEDICARE | MEDICA | [id number] | Medica | [phone] | | [...] | Self [birth year] Home: | [address] [place] [address] | | LIDIA | rohit/Burke | | 1955 | [phone] | [place] [address] | | | emerita | | [phone] | | + +--------+ +--------+ + +
--- OUTSIDE RECORDS SUMMARY | ~2018-07-16 | XMS | Encounter Summary ---
Demographics + + + | Address | [address] | | | [place] [address] | + + + | Home Phone | | + + + | Preferred Language | Unknown | + + + | Marital Status | Single | + + + | Judaism Affiliation | Unknown | + + + | Race | Unknown | + + + | Ethnic Group | Unknown | + + + Author + + + | Author | [facility] | | | and [place] | + + + | Organization | [facility] | | | and [place] [...] Team Providers + +------+ + | Care Instrument Maker And Repairer Name | Role | Phone | + +------+ + | Yeyo Anderson DO | PCP | | + +------+ + Reason for Visit + + + | Reason | Comments | + + + | IDT Note | | + + + Encounter Details +--------+ + + + + | Date | Type | Department | Care Team | Description | +--------+ + + + + | 06/30/ | Telephone | [facility] | Arabella, | IDT Note | | 2017 | | [facility] | Jennifer, RN | | | | | [facility] [address] | | | | | [address] | | | | | | [place] [address] | | | | | | [phone] | | | +--------+ + + + [...] [place] | | | | | | [address] | | | | | | [place] [address] | | | | | | [phone] | | | | | | | | +--------+ + + + + | 08/03/ | Appointment | Oncology | Sterling Thomas, | | | 2017 | | | MD [address] | | | | | | [place] | | | | | | [address] | | | | | | [phone] | | | | | | | [...]
--- OUTSIDE RECORDS SUMMARY | ~2018-07-16 | XMS | Encounter Summary ---
Demographics + + + | Address | [address] | | | [place] [address] | + + + | Home Phone | | + + + | Preferred Language | Unknown | + + + | Marital Status | Single | + + + | Methodist Affiliation | Unknown | + + + | Race | Unknown | + + + | Ethnic Group | Unknown | + + + Author + + + | Author | [facility] | | | and [place] | + + + | Organization | [facility] | | | and [place] | [...] Team Providers + +------+ + | Care Foreman/Project Manager Name | Role | Phone | + [...] neoplasm of | [address] | | | | | larynx, | [address] | [place], | | | | | unspecified | [place], | [place] [address] | | | | | (HCC) | [place] | Phone: | | | | | Procedures | [phone] | [phone] | | | | | [place] IV | Phone: | Fax: | | | | | INFUSION, | [phone] | [phone] | | | | | HYDRATION, | Fax: | | | | | | 31-60 MIN | [phone] | | | | | | [place] IV | | | | | | | INFUSION, | | | | | | | HYDRATION, | | | | | | | EA ADD HOUR | | | | | | | [place] | | | | | | | ONDANSETRON | | | | | | | ORAL [place] | | | | | | | ORAL | | | | | | | DEXAMETHASON | | | | | | | E, .25 MG | | | | | | | [place] | | | | | | | CHEMOTHERAPY | | | | | | | DRUG [place] | | | | | | | CISPLATIN 10 | | | | | | | MG | | | | | | | INJECTION | | | | | | | [place] ADRENALIN | | | | | | | EPINEPHRINE | | | | | | | INJECT, .1 | | | | | | | MG [place] | | | | | | | DIPHENHYDRAM | | | | | | | INE HCL | | | | | | | INJECTIO, 50 | | | | | | | MG [place] | | | | | | | METHYLPREDNI | | | | | | | SOLONE | | | | | | | INJECTION, | | | | | | | 125 MG [place] | | | | | | | ALBUTEROL | | | | | | | COMP CON, 1 | | | | | | | MG [place] | | | | | | | ALBUTEROL | | | | | | | NON-COMP | | | | | | | CON, 1 MG | | | | | | | [place] | | | | | | | INJECTION, | | | | | | | FAMOTIDINE, | | | | | | | 20 MG [place] | | | | | | | NORMAL | | | | | | | SALINE | | | | | | | SOLUTION | | | | | | | INFUS, 500 | | | | | | | ML [place] | | | | | | | NORMAL | | | | | | | SALINE | | | | | | | SOLUTION | | | | | | | INFUS, 250 | | | | | | | ML [place] | | | | | | | STERILE | | | | | | | WATER/SALINE | | | | | | | , 10 ML [place] | | | | | | | CHEMOTHER, | | | | | | | IV PUSH,EA | | | | | | | ADD DRUG [place] | | | | | | | CHEMOTHER, | | | | | | | IV INFUSION, | | | | | | | 1 HR [place] | | | | | | | CHEMOTHER, | | | | | | | IV INFUSION, | | | | | | | EA HR [place] | | | | | | | CHEMOTHER,NO | | | | | | | N-HORMONE | | | | | | | ANTI-NEOPL, | | | | | | | SUB-Q/IM [place] | | | | | | | [...] + + | 07/15/ | Hospital | [facility] | Sterling Thomas, | 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 | | | | INFUSION [address] | [place], [place] | ([facility]); Encounter for | | | | [place], | [address] | antineoplastic | | | | [place] [address] | [phone] | chemotherapy | | | | [phone] | | | +--------+ + + + [...] + + + | Blood Pressure | 163/91 | 07/15/20181148 PDT | + + + + | Pulse | 76 | 07/15/20181148 PDT | + + + + | Temperature | 37.3 C (99.1 F) | 07/15/20181148 PDT | + + + + | Respiratory Rate | 24 | 07/15/20181148 PDT | + + + + | Oxygen Saturation | 98% | 07/15/20181148 PDT | + + + + | [...] mouth Daily. | | | 18 | | | tablet | | | | | | + + + +---------+ + + | LORazepam (ATIVAN) | Take 1 tablet by | 20 | 5 | 07/13/20 | | | 1 mg | mouth every 6 hours | tablet | | 18 | | | tabletIndications: | as needed | | | | | | Squamous cell | (Nausea/Vomiting). | | | | | | carcinoma of larynx | | | | | | | ([facility]), Encounter for | | | [...] | | | | | | | ([facility]), Status post | | | | | | | emergency | | | | | | | tracheotomy for | | | | | | | assistance in | | | | | | | breathing ([facility]), | | | | | | | Chronic obstructive | | | | | | | pulmonary disease, | | | | | | | unspecified COPD | | | | | | | type ([facility]) | | | | | [...] | | | | | | | ([facility]), Encounter for | | | [...] | 18 | | | tabletIndications: | as needed | | | | | | Squamous cell | (Nausea/Vomiting). | | | | | | carcinoma of larynx | | | | | | | ([facility]), Encounter for | | | | | | | antineoplastic | | | | | | | chemotherapy | | | | | | + + + +---------+ + + as of this encounter Progress Notes Kasey Gongora RN - 07/15/2018 1150 PDTPatient arrived ambulatory for IVF and antinau sea medications. Reports that the mask yesterday in radiation therapy hit her trach and irr itated it so badly that she had to suction a lot of blood. Having some incontinent spells, having diarrhea. Feels really weak today reports that she is eating well. Had some nausea yesterday took medicine which was effective.in this encounter Plan of Treatment +--------+ + + + + | Date | Type | Specialty | Care Team | Description | +--------+ + + + + | 07/23/ | Appointment | Oncology | Jamie Andres | | | 2017 | | | MD [address] | | | | | | [address] | | | | | | [place] [address] | | | | | | [phone] | | | | | | | | +--------+ + + + + | 08/03/ | Appointment | Oncology | Sterling Thomas, | | | 2017 | | | MD [address] | | | | | | [place] | | | | | | [address] | | | | | | [phone] | | | | | | | [...] | + + Administered Medications + +--------+ +-------+------+------+ | Medication Order | MAR | Action | Dose | Rate | Site | | | Action | Date | | | | + +--------+ +-------+------+------+ | heparin 100 units/mL flush | Given | | 500 | | | | injection 500 Units 500 Units (5 | | 8 13:28 | Units | | | | mL), Intracatheter, PRN, Line | | PDT | | | | | Care, Starting [facility] 07/15/18 at | | | | | | | 1130 | | | | | | + +--------+ +-------+------+------+ +---+---+ | | | +---+---+ + +---------+ +---+--------+---+ | ondansetron (ZOFRAN) 16 mg, | New Bag | | | 236.8 | | | dexamethasone (DECADRON) 12 mg in | | 8 12:01 | | mL/hr | | | sodium chloride 0.9% 50 mL IVPB | | PDT | | | | | Intravenous, Administer over 15 | | | | | | | Minutes, ONCE, [facility] 07/15/18 at | | | | | | | 1200, For 1 dose, Administer | | | | | | | prior to chemotherapy. | | | | | | + +---------+ +---+--------+---+ +---+---+ | | | +---+---+ + +---------+ +---+-------+---+ | sodium chloride 0.9% (NS) | New Bag | | | 680 | | | infusion at 650 mL/hr, | | 8 11:38 | | mL/hr | | | Intravenous, ONCE, [facility] 07/15/18 at | | PDT | | | | | 1200, For 1 dose | | | | | | + +---------+ +---+-------+---+ + + +---+-------+---+ | Restarted | | | 650 | | | | 8 12:19 | | mL/hr | | | | PDT | | | | + + +---+-------+---+ +---+---+ | | | +---+---+ in this encounter"
--- OUTSIDE RECORDS SUMMARY | ~2018-07-16 | XMS | Encounter Summary ---
Demographics + + + | Address | [address] | | | [place] [address] | + + + | Home Phone | | + + + | Preferred Language | Unknown | + + + | Marital Status | Single | + + + | Scientologist Affiliation | Unknown | + + + | Race | Unknown | + + + | Ethnic Group | Unknown | + + + Author + + + | Author | [facility] | | | and [place] | + + + | Organization | [facility] | | | and [place] | + + + | Address | Unknown | + + + | Phone | Unavailable | + + + Support + + +---------+ + | Name | Relationship | Address | Phone | + + +---------+ + | Sebastian Vivas | ECON | Unknown | | + + +---------+ + | Rafia Stpehens | ECON | Unknown | | + + +---------+ + Care Team Providers + +------+ + | Care Technical Programs Manager Name | Role | Phone | + +------+ + | Yeyo Anderson DO | PCP | | + +------+ + Reason for Referral Evaluate & Treat (Routine) +--------+ + + [...] | carcinoma of | [address] | | | | | larynx | [place], | [place], | | | | | (HCC) | [place] | [place] [address] | | | | | | [address] | Phone: | | | | | | Phone: | [phone] | | | | | | [phone] | Fax: | | | | | | Fax: | [phone] | | | | | | [phone] | | +--------+ + + + + + Reason for Visit + + + | Reason | Comments | + + + | IDT Note | | + + + Encounter Details +--------+ + + + + | Date | Type | Department | Care Team | Description | +--------+ + + + + | 06/30/ | Telephone | [facility] | Sterling Thomas, | IDT Note | | 2018 | | [facility] | [address] | | | | | [facility] [address] | [place] | | | | | [address] [place] | [address] | | | | | [place] [address] | [phone] | | | | | [phone] | | | +--------+ + + + [...] | | | | | [place] [address] | | | | | | [phone] | | | | | | | | +--------+ + + + + | 08/03/ | Appointment | Oncology | Sterling Thomas, | | | 2017 | | | MD [address] | | | | | | [place] | | | | | | [address] | | | | | | [phone] | | | | | | | [...] | | + +--------+ + + | * [facility] | Routin | Squamous cell | Ordered: 07/05/2018 | | Referral | e | carcinoma of larynx | | | | | (HCC) | | + +--------+ + + as of this encounter Visit Diagnoses + + | Diagnosis | + + | 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
--- OUTSIDE RECORDS SUMMARY | ~2018-07-16 | XMS | Encounter Summary ---
Demographics + + + | Address | [address] | | | [place] [address] | + + + | Home Phone | | + + + | Preferred Language | Unknown | + + + | Marital Status | Single | + + + | Anabaptism Affiliation | Unknown | + + + | Race | Unknown | + + + | Ethnic Group | Unknown | + + + Author + + + | Author | [facility] | | | and Mikeana | + + + | Organization | [facility] [...] Team Providers + +------+ + | Care Insurance Claims Assistant Name | Role | Phone | [...] | | | | COPD type | [address] | | | | | | ([facility]) | Phone: | | | | | | Smoker | [phone] | | | | | | Tracheostomy | Fax: | | | | | | , acute | [phone] | | | | | | management | | | | | | | ([facility]) | | | | | | | 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 | | | | | | | ([facility]) | | | | | [...] [place], | | | | | | ([facility]) | [place] | | | | | | Squamous | [address] | | | | | | cell | Phone: | | | | | | carcinoma of | [phone] | | | | | | larynx | Fax: | | | | | | ([facility]) | [phone] | | | | | | Procedures [...] | | | | COPD type | [address] | | | | | | ([facility]) | Phone: | | | | | | Smoker | [phone] | | | | | | Tracheostomy | Fax: | | | | | | , acute | [phone] | | | | | | management | | | | | | | ([facility]) | | | | | | | 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 | | | | | | | ([facility]) | | | + + [...] | | | | | | | [place] [address] | | | | | | | Phone: | | | | | | | [phone] | | | | | | | Fax: | | | | | | | [phone] | | + + + + + [...] + + | 06/01/ | Hospital | [facility] | Ac Hines, | Tracheostomy, acute | | 2018 - | Encounter | [facility] | MD [address], | management ([facility]) | | | | [address] [place] | [address] [place], | (Primary Dx); | | 06/10/ | | [place] [address] | [place] [address] | Bilateral foot pain; | | 2018 | | [phone] | [phone] | Right leg pain; | | | | | | Laryngeal carcinoma | | | | | | ([facility]); Status post | | | | | | emergency | | | | | | tracheotomy for | | | | | | assistance in | | | | | | breathing ([facility]); | | | | | | Chronic obstructive | | | | | | pulmonary disease, | | | | | | unspecified COPD | | | | | | type ([facility]); Smoker; | | | | [...] S/p debulking surgery and trach placement at [facility], transferred to [facility] for acut e care - Admitted [...] days. Specialty: Otolaryngology Why: For wound re-check--in [place] office Contact information: [address], [address] [facility] [address] Discharge Medications New Medications Details Commode Bedside [...] signed by: Ashkan Dennis MD, 06/10/2018 10:44 [facility] in this encounter Discharge Instructions Ashkan Dennis MD - 06/10/2018You were admitted with new tracheostomy after surgery for laryngeal mass. You will need home health at home, and we are working with the [facility] to supply home tracheostomy care needs. Please follow up with Dr. Hines to jairon iglesias the tracheostomy and treatment for the laryngeal mass. The following attachments cannot be sent through Care Everywhere.Care, Tracheostomy (Englis h)Caring for Your Tracheostomy Tube and Stoma, Discharge Instructions (Haitian)Tracheostomy Care (Haitian)Tracheostomy Tube or Stoma: Your New Airway (Haitian)Tracheostomy Tube, Adjust ing to Your (Haitian)Tracheostomy Tube, Your, Answers to Common Questions About (Haitian)Tra cheostomy Tube, Your: Learning How to Communicate (Haitian)Tracheostomy Tube, Your: Tips for Eating (Haitian)Tracheostomy, Cleaning Your (Haitian)Tracheostomy, Suctioning Your (Haitian )Tracheostomy, What Is (Haitian)in this encounter Medications at Time of Discharge [...] | | | | | ([facility]), Status post | | | | | | | emergency | | | | | | | tracheotomy for | | | | | | | assistance in | | | | | | | breathing ([facility]), | | | | | | | Chronic obstructive | | | | | | | pulmonary disease, | | | | | | | unspecified COPD | | | | | | | type ([facility]) | | | | | [...] Progress Notes Ashkan Dennis MD - 06/09/2018 1407 PDTFormatting of this note may be different from karine lazar. [facility]G Hospitalist Progress Note Crystal Sadler [...] be okay to go home, asked [facility] to provide her with Passy Samantha [...] Dennis 06/09/2018 17:20 [facility] Tiffani King, MOTORCYCLE SERVICE TECHNICIAN - 06/09/2018 0913 PDTPt is sleeping will return for trach care and suctioning when she Wakes up or her nurse calls. BS are clear but diminished SpO2 On RA is 92%, 98% on 5 lpm oxygen driven neb tx.Ac Hines MD - 06/09/2018 0759 PDTPt stable and awaiting placement. Path still pending. I' ll see her in office in next weekMarlena Diaz, MOTORCYCLE SERVICE TECHNICIAN - 06/09/2018 0129 PDTPatient trach w as [...] am if path is done Janee Cornell, MOTORCYCLE SERVICE TECHNICIAN - 06/08/2018 0956 PDTAt 0730 this morning [...] stoma to Dr. Dennis and to the [facility] supervisor [employer]. At 9:14 I received a call from [...] ENT assessment. Electronically signed by: Janee Cornell, MOTORCYCLE SERVICE TECHNICIAN 8 10:09 Ashkan Dennis MD - 06/08/2018 0842 PDTFormatting of this note may be different from karine lazar. [facility] PM Hospitalist Progress Note Crystal Sadler [...] discussed with Dr. Hines who is in [facility], will discuss with Dr. Chavira today - [...] from karine kingston original. 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 She was referred to ENT at which point a bulky laryngeal mass was identified On 06/01/18 the patient underwent tumor debulking, Bx at [facility] in [place], [place] Post operatively the pt abruptly developed airway obstruction and returned to the OR at [facility] time an urgent tracheostomy was performed. The pt was then transferred to [facility] ICU for further care. Initially [...] Bx and urgent tracheotomy tube placement at [facility] on 06/01/18 Now stable from cardio-pulm standpoint Arrangements being made for transfer to skilled facility for trach training Pt to follow up with Dr Hines in approx week's time for conversion to non-cuffed trach To start XRT in near future Seen by COVER MARKER eval; some dyphagia noted; dietary recommendations noted Would consider eval by med oncol as well Continue DEIDRE's Tracheal humidification Would check caloric intake. Nicotine replacement therapy added Continue regimen. Possible feeding tube in the future Further management per ENT service Electronically signed by: Prosper Dudley MD, DATE/TIME: 06/07/2018 12:58 [facility] - 06/06/2018 1144 PDTFormatting of this note may be different from the original. 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 She was referred to ENT at which point a bulky laryngeal mass was identified On 06/01/18 the patient underwent tumor debulking, Bx at [facility] in [place] Post operatively the pt abruptly developed airway obstruction and returned to the OR at [facility] time an urgent tracheostomy was performed. The pt was transferred to [facility] ICU for further care. Initially [...] Bx and urgent tracheotomy tube placement at [facility] on 06/01/18 Stable from cardio-pulm standpoint Arrangements being made for transfer to skilled facility for trach training Pt to follow up with Dr Hines in approx week's time for conversion to non-cuffed trach To start XRT in near future Seen by COVER MARKER eval; some dyphagia noted; dietary recommendations noted Would consider eval by med oncol as well Continue DEIDRE's Tracheal humidification Would check caloric intake. Nicotine replacement therapy added Continue regimen. Possible feeding tube in the future Electronically signed by: Prosper Dudley MD, DATE/TIME: 06/06/2018 11:44 [facility] HOSPITALIST Prosper Sierra MD - 06/05/2018 1304 PDTFormatting of this note may be different from the original. 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 She was referred to ENT at which point a bulky laryngeal mass was identified On 06/01/18 the patient underwent tumor debulking, Bx at [facility] in [place] Post operatively the pt abruptly developed airway obstruction and returned to the OR at [facility] time an urgent tracheostomy was performed. The pt was transferred to [facility] ICU for further care. Initially [...] start XRT in near future Seen by COVER MARKER eval; some dyphagia noted; dietary recommendations noted Would consider eval by med oncol as well Continue DEIDRE's Tracheal humidification Would check caloric intake. Nicotine replacement therapy added Continue regimen. Electronically signed by: Prosper Dudley MD, DATE/TIME: 06/05/2018 13:04 [facility] hospitalProsper reeves MD - 06/04/2018 1246 PDTFormatting of this note may be different from the original. HOSPITALIST progress NOTE [facility] 06/04/2018 Rounding Physician: Prosper Dudley MD Patient Name: Crystal Sadler : 1955 Medical Record: [id number] Primary Hospital Problem: Laryngeal tumor S/p tracheotomy HPI: Pt is 62yo long-term smoker who developed sore throat, hoarseness and ear ache. She was referred to ENT at which point a bulky laryngeal mass was identified On 06/01/18 the patient underwent tumor debulking, Bx at [facility] in [place] Post operatively the pt abruptly developed airway obstruction and returned to the OR at [facility] time an urgent tracheostomy was performed. The pt was transferred to [facility] ICU for further care. Initially [...] To start XRT in near future Awaiting COVER MARKER eval altho pt appears to be able to tolerate po now; I am less optimistic abou t PO intake once XRT begins at which point pt may required feeding tube Would consider eval by med oncol as well Continue DEIDRE's Tracheal humidification Would check caloric intake. Nicotine replacement therapy added Check labs in AM Electronically signed by: Prosper Dudley MD, DATE/TIME: 06/04/2018 12:46 [facility] He[facility] Abdullahi RN - 06/02/2018 1638 PDTPt transferred down from ICU. Alert and able to mouth need or uses paper to communicate. TICKET MARKER reported th at she did try to [...] place. Will discharge 1-2 days. Janee Cornell, MOTORCYCLE SERVICE TECHNICIAN - 06/02/2018 1119 PDTPatient wi ll need [...] | | | | | [place] [address] | | | | | | [phone] | | | | | | | | +--------+ + + + + | 08/03/ | Appointment | Oncology | Sterling Thomas, | | 2017 | | | MD [address] | | | | | | [place] | | | | | | [address] | | | | | | [phone] | | | | | | | [...] + in this encounter Results Calcium, Ionized (06/06/2018 0606) + + + + + | Component | Value | Ref Range | Performed At | + + + + + | Ionized Calcium | 5.68 (H) | 4.48 - 5.28 mg/dL | [facility] | | | [...] + | [facility] | [address] | [place], [place] | [phone] | | [facility] | | [address] | | | - LABORATORY | | | | + + + + + | [facility] | [address] | [place] | | | [facility] | | [address] | | | - LABORATORY | | [...] + | [facility] | [address] | [place] | [phone] | | [facility] | | [address] | | | - LABORATORY | | | | + + + + + | [facility] | [address] | [place] | | | [facility] | | [address] | | | - LABORATORY | | | | + + + + + Magnesium (06/06/2018605) + +-------+ + + | Component | Value | Ref Range | Performed At | + +-------+ + + | Magnesium | 2.0 | 1.8 - 2.5 mg/dL | [facility] | | | | | [facility] [...] + | [facility] | [address] | [place] | [phone] | | [facility] | | [address] | | | - LABORATORY | | | | + + + + + | [facility] | [address] | [place] | | | [facility] | | [address] | | | - LABORATORY | | [...] + | [facility] | [address] | [place] | [phone] | | [facility] | | [address] | | | - LABORATORY | | | | + + + + + | [facility] | [address] | [place] | | | [facility] | | [address] | | | - LABORATORY | | [...] [facility] | | | | | [facility] | | | | | CENTER [...] 11 | 7 - 18 mg/dL | [facility] | | | | | [facility] | | | | | CENTER - | | | | | LABORATORY | + + + + + | Creatinine, | 0.60 | 0.60 - 1.30 mg/dL | [facility]. | | Serum/Plasma | | | [facility] | | | | | CENTER - | | | | | LABORATORY | + + + + + | eGFR if not | >60Comment: GLOMERULAR | >=60 mL/min/1.73m2 | [facility] | | SURINAMESE | FILTRATION | | [facility] | | | RATE,ESTIMATED mL/min | | CENTER - | | | /[id number] than 60 | | LABORATORY | | [...] + | [facility] | [address] | [place] | [phone] | | [facility] | | [address] | | | - LABORATORY | | | | + + + + + | [facility] | [address] | [place] | | | [facility] | | [address] | | | - LABORATORY | | | | + + + + + Culture, MRSA (06/01/20181658) + + + + + | Component | Value | Ref Range | Performed At | + + + + + | Culture | Negative for MRSA by | | [facility] | | | chromogenic agar method | | [facility] | | [...] + | [facility] | [address] | [place], [place] | [phone] | | [facility] | | [address] | | | - LABORATORY | | | | + + + + + | [facility] | [address] | [place], [place] | | | [facility] | | [address] | | | - LABORATORY | | [...] | | +-------+ +-------+---+---+ | Given | 201 | 3 mLs | | | | [...] | | | | First dose on [facility] 06/10/18 at | | PDT | [...] | | | | First dose on [facility] 06/10/18 at 1045 | | PDT [...]
--- OUTSIDE RECORDS SUMMARY | ~2018-07-16 | XMS | Encounter Summary ---
Demographics + + + | Address | [address] | | | [place] [address] | + + + | Home Phone | | + + + | Preferred Language | Unknown | + + + | Marital Status | Single | + + + | [employer] Affiliation | Unknown | + + + | Race | Unknown | + + + | Ethnic Group | Unknown | + + + Author + + + | Author | [facility] | | | and Mikeana | + + + | Organization | [facility] | | | and [...] Team Providers + +------+ + | Care Sales Solutions Associate Name | Role | Phone | + [...] + + | 07/15/ | Hospital | [facility] | Estefanía Hairston | 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 | MED CTR RADIATION | MD Alana [address] | carcinoma of larynx | | | | ONCOLOGY CLINIC [address] | [place], [place] | ([facility]) (Primary Dx) | | | | [facility] | [address] | | | | | [place] [address] | | | | | | [phone] | | | +--------+ + + + [...] + | Blood Pressure | 175/92 | 07/15/20181350 PDT | + + + [...] | Body Mass Index | 27.42 | 07/15/20181350 PDT | + + + + in this encounter Medications at Time of Discharge + + + +---------+ + + | Medication | Sig. | Disp. | Refills | Start | End Date | | | | | | Date | | + + + +---------+ + + | albuterol 2.5 mg/3 | Take 3 mLs by | 60 vial | 0 | 08//20 | | | mL nebulizer | nebulization [...] | | | 18 | | | KASSANDRA MISC | needed. | | | | [...] | | | | | ([facility]), Encounter for | | | [...] | | | | | ([facility]), Status post | | | | | | | emergency | | | | | | | tracheotomy for | | | | | | | assistance in | | | | | | | breathing ([facility]), | | | | | | | Chronic obstructive | | | | | | | pulmonary disease, | | | | | | | unspecified COPD | | | | | | | type ([facility]) | | | | | [...] | | | | | ([facility]), Encounter for | | | [...] | | | | | ([facility]), Encounter for | | | | | | | antineoplastic | | | | | | | chemotherapy | | | | | | + + + +---------+ + + as of this encounter Progress Notes Estefanía Hairston MD - 07/15/2018 1356 PDTFormatting of this note may be different from t he original. Radiation Oncology Weekly On Treatment Note Diagnosis: ICD-10-CM ICD-9-CM 1. 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 (Patient not taking: Reported on 07/15/2018) 30 tablet 0 levoFLOXacin (LEVAQUIN) 500 mg tablet Take 1 tablet by mouth Daily. LORazepam (ATIVAN) 1 mg tablet Take 1 tablet by mouth every 6 hours as needed (Nausea/V omiting). 20 tablet 5 Misc. Devices (COMMODE BEDSIDE) MISC 1 Application by Does not apply route as needed. 1 each 0 OLANZapine (ZYPREXA) 5 mg tablet Take 2 tablets by mouth nightly for 4 days. starting D ay 1 of chemotherapy. 30 tablet 0 ondansetron (ZOFRAN) 8 MG tablet Take 1 tablet by mouth every 8 hours as needed (Nausea /Vomiting). 30 tablet 3 Current Facility-Administered Medications on File Prior to Encounter Medication Dose Route Frequency Provider Last Rate Last Dose heparin 100 units/mL flush injection 500 Units 5 mL Intracatheter PRN Sterling Thomas MD 500 Units at 07/15/18 1328 [COMPLETED] ondansetron (ZOFRAN) 16 mg, dexamethasone (DECADRON) 12 mg in sodium chlori de 0.9% 50 mL IVPB Intravenous Once Sterling Thomas MD Stopped at 07/15/18 1219 [COMPLETED] ondansetron (ZOFRAN) 16 mg, dexamethasone (DECADRON) 12 mg in sodium chlori de 0.9% 50 mL IVPB Intravenous Once Sterling Thomas MD Stopped at 07/14/18 1434 [COMPLETED] sodium chloride 0.9% (NS) infusion Intravenous Once Sterling Thomas MD Stopped at 07/15/18 1327 [COMPLETED] sodium chloride 0.9% (NS) infusion Intravenous Once Sterling Thomas MD Stopped at 07/14/18 1417 07/15/18 1356 General Disorders and Administration Site Conditions Fatigue 2 - Grade 2 Respiratory Thoracic and Mediastinal Cough 1 - Grade 1 Dyspnea 1 - Grade 1 Performance Status Karnofsky Performance Score 70% Pain assessment: Location: Throat Pain Level: PAIN PROG PAIN LEVEL: 4 Pain Quality: Stable Current pain regimen: none Wt Readings from Last 3 Encounters: 07/15/18 66.9 kg (147 lb 7.8 oz) 07/13/18 65.1 kg (143 lb 8.3 oz) 06/30/18 65.2 kg (143 lb 11.8 oz) Vitals: 07/15/18 1351 BP: (!) 175/92 Pulse: 80 Resp: 22 Temp: 36 C (96.8 F) TempSrc: Temporal SpO2: 95% Weight: 66.9 kg (147 lb 7.8 oz) Physical Exam Constitutional: She is oriented to person, place, and time. She appears well-developed and well-nourished. She appears lethargic. Neurological: She is oriented to person, place, and time. She has normal strength. She appe ars lethargic. Gait normal. Skin: No rash noted. No erythema. Psychiatric: She has a normal mood and affect. Lab Results Component Value Date WBC 7.6 07/13/2018 HGB 13.9 07/13/2018 HCT 41.3 07/13/2018 MCV 90.4 07/13/2018 PLT 334 07/13/2018 Lab Results Component Value Date CREA 0.77 07/13/2018 BUN 15 07/13/2018 NA 138 07/13/2018 K 4.0 07/13/2018 CL 104 07/13/2018 CO2 25 07/13/2018 Lab Results Component Value Date ALT 39 07/13/2018 AST 34 07/13/2018 ALKPHOS 65 07/13/2018 BILITOT 0.8 07/13/2018 Physician Assessment: Crystal started chemoradiotherapy this week for laryngeal cancer. She reports that she is s till able to eat and drink, fairly normally, and she has gained some weight in the past coup le of weeks. She is extremely fatigued today. Reports loose stools. Mild nausea, well man aged with antiemetics and no emesis. She describes limited family support. Plans to at least rest in the [facility] before d riving home. I encouraged her to stay overnight as needed. Toxicities reviewed in nursing note. Disposition: Continue radiation treatment as planned. Continue concurrent chemotherapy at the direction of medical oncology. May take imodium for loose stools. Chemotherapy related vs gastroenteritis. No fever or ab dominal pain. Estefanía Hairston MD Radiation Oncologist in this encounter Plan of Treatment +--------+ + + + + | Date | Type | Specialty | Care Team | Description | +--------+ + + + + | 07/23/ | Appointment | Oncology | Jamie Andres | | | 2017 | | | MD Manuel [address] | | | | | [address] | | | | | | [place] [address] | | | | | | [phone] | | | | | | | | +--------+ + + + + | 08/03/ | Appointment | Oncology | Sterling Thomas, | | | 2017 | | | MD [address] | | | | | | [place] | | | | | | [address] | | | | | | [phone] | | | | | | | [...]
--- OUTSIDE RECORDS SUMMARY | ~2018-07-16 | XMS | Encounter Summary ---
Demographics + + + | Address | [address] | | | [place] [address] | + + + | Home Phone | | + + + | Preferred Language | Unknown | + + + | Marital Status | Single | + + + | Hinduism Affiliation | Unknown | + + + | Race | Unknown | + + + | Ethnic Group | Unknown | + + + Author + + + | Author | [facility] | | | and Mikeana | + + + | Organization | [facility] | | | and [...] Team Providers + +------+ + | Care Animal Cruelty Investigator Name | Role | Phone | + [...] neoplasm of | [address] | | | | | larynx, | [address] | [place], | | | | | unspecified | [place], | [place] [address] | | | | | (HCC) | [place] | Phone: | | | | | Procedures | [address] | [phone] | | | | | [place] IV | Phone: | Fax: | | | | | INFUSION, | [phone] | [phone] | | | | | HYDRATION, | Fax: | | | | | | 31-60 MIN | [phone] | | | | | | UT IV | | | | | | | INFUSION, | | | | | | | HYDRATION, | | | | | | | EA ADD HOUR | | | | | | | UT | | | | | | | ONDANSETRON | | | | | | | ORAL UT | | | | | | | ORAL | | | | | | | DEXAMETHASON | | | | | | | E, .25 MG | | | | | | | UT | | | | | | | CHEMOTHERAPY | | | | | | | DRUG UT | | | | | | | CISPLATIN 10 | | | | | | | MG | | | | | | | INJECTION | | | | | | | UT ADRENALIN | | | | | | | EPINEPHRINE | | | | | | | INJECT, .1 | | | | | | | MG UT | | | | | | | DIPHENHYDRAM | | | | | | | INE HCL | | | | | | | INJECTIO, 50 | | | | | | | MG UT | | | | | | | METHYLPREDNI | | | | | | | SOLONE | | | | | | | INJECTION, | | | | | | | 125 MG UT | | | | | | | ALBUTEROL | | | | | | | COMP CON, 1 | | | | | | | MG UT | | | | | | | ALBUTEROL | | | | | | | NON-COMP | | | | | | | CON, 1 MG | | | | | | | UT | | | | | | | INJECTION, | | | | | | | FAMOTIDINE, | | | | | | | 20 MG UT | | | | | | | NORMAL | | | | | | | SALINE | | | | | | | SOLUTION | | | | | | | INFUS, 500 | | | | | | | ML UT | | | | | | | NORMAL | | | | | | | SALINE | | | | | | | SOLUTION | | | | | | | INFUS, 250 | | | | | | | ML UT | | | | | | | STERILE | | | | | | | WATER/SALINE | | | | | | | , 10 ML UT | | | | | | | CHEMOTHER, | | | | | | | IV PUSH,EA | | | | | | | ADD DRUG UT | | | | | | | CHEMOTHER, | | | | | | | IV INFUSION, | | | | | | | 1 HR UT | | | | | | | CHEMOTHER, | | | | | | | IV INFUSION, | | | | | | | EA HR UT | | | | | | | CHEMOTHER,NO | | | | | | | N-HORMONE | | | | | | | ANTI-NEOPL, | | | | | | | SUB-Q/IM UT | | | | | | | [...] + + | 07/16/ | Hospital | [facility] | Sterling Thomas, | 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 | | | | INFUSION [address] | [place], [place] | (FORMERLY [facility]); Encounter for | | | | [place], | [address] | antineoplastic | | | | [place] [address] | [phone] | chemotherapy | | | | [phone] | | | +--------+ + + + [...] encounter Progress Notes Kasey Gongora RN - 07/16/2018 1127 PDTCreatinine level back WNL patient dischargedin this encounter Plan of Treatment +--------+ + + + + | Date | Type | Specialty | Care Team | Description | +--------+ + + + + | 07/23/ | Appointment | Oncology | Jamie Andres | | | 2017 | | | MD Manuel [address] | | | | | | [address] | | | | | | [place] [address] | | | | | | [phone] | | | | | | | | +--------+ + + + + | 08/03/ | Appointment | Oncology | Sterling Thomas, | | | 2017 | | | [address] | | | | | | [place] | | | | | | [address] | | | | | | [phone] | | | | | | | [...] the | | | | | (FORMERLY [facility]) Encounter for | results section. | | | | | antineoplastic | | | | | | chemotherapy | | + +--------+ + + + in this encounter Results Creatinine (07/16/2018 1052) + + + + + | Component | Value | Ref Range | Performed At | + + + + + | Creatinine, | 0.93 | 0.60 - 1.30 mg/dL | [facility] | | Serum/Plasma | | | [facility] | | | | | CENTER - | | | | | LABORATORY | + + + + + | eGFR if not | >60Comment: GLOMERULAR | >=60 mL/min/1.73m2 | [facility] | | IRISH | FILTRATION | | [facility] | | | RATE,ESTIMATED mL/min | | CENTER - | | | /1.83s7Sbdz than 60 | | LABORATORY | | [...] + | [facility] | [address] | [place], [place] | [phone] | | [facility] | | [address] | | | - LABORATORY | | | | + + + + + | [facility] | [address] | [place], [place] | | | [facility] | | [address] | | | - LABORATORY | | | | + + + + + in this encounter Visit Diagnoses + + | Diagnosis | + + | Squamous cell carcinoma of larynx (HCC) | + + | Malignant neoplasm of larynx, unspecified site | + + | Encounter for antineoplastic chemotherapy | + + | Encounter for antineoplastic chemotherapy | + +"
--- OUTSIDE RECORDS SUMMARY | ~2018-07-16 | XMS | Encounter Summary ---
Demographics + + + | Address | [address] | | | [place] [address] | + + + | Home Phone | | + + + | Preferred Language | Unknown | + + + | Marital Status | Single | + + + | Zoroastrian Affiliation | Unknown | + + + | Race | Unknown | + + + | Ethnic Group | Unknown | + + + Author + + + | Author | [facility] | | | and Mikeana | + + + | Organization | [facility] | | | and Mikeana [...] Team Providers + +------+ + | Care Habilitation Assistant Name | Role | Phone | [...] neoplasm of | [address] | | | | | larynx, | [address] | [place], | | | | | unspecified | [place], | [place] [address] | | | | | (HCC) | [place] | Phone: | | | | | Procedures | [address] | [phone] | | | | | [place] IV | Phone: | Fax: | | | | | INFUSION, | [phone] | [phone] | | | | | HYDRATION, | Fax: | | | | | | 31-60 MIN | [phone] | | | | | | [place] IV | | | | | | | INFUSION, | | | | | | | HYDRATION, | | | | | | | EA ADD HOUR | | | | | | | TX | | | | | | | ONDANSETRON | | | | | | | ORAL [place] | | | | | | | ORAL | | | | | | | DEXAMETHASON | | | | | | | E, .25 MG | | | | | | | TX | | | | | | | CHEMOTHERAPY | | | | | | | DRUG TX | | | | | | | CISPLATIN 10 | | | | | | | MG | | | | | | | INJECTION | | | | | | | TX ADRENALIN | | | | | | | EPINEPHRINE | | | | | | | INJECT, .1 | | | | | | | MG TX | | | | | | | DIPHENHYDRAM | | | | | | | INE HCL | | | | | | | INJECTIO, 50 | | | | | | | MG TX | | | | | | | METHYLPREDNI | | | | | | | SOLONE | | | | | | | INJECTION, | | | | | | | 125 MG TX | | | | | | | ALBUTEROL | | | | | | | COMP CON, 1 | | | | | | | MG TX | | | | | | | ALBUTEROL | | | | | | | NON-COMP | | | | | | | CON, 1 MG | | | | | | | TX | | | | | | | INJECTION, | | | | | | | FAMOTIDINE, | | | | | | | 20 MG TX | | | | | | | NORMAL | | | | | | | SALINE | | | | | | | SOLUTION | | | | | | | INFUS, 500 | | | | | | | ML [place] | | | | | | | NORMAL | | | | | | | SALINE | | | | | | | SOLUTION | | | | | | | INFUS, 250 | | | | | | | ML TX | | | | | | | STERILE | | | | | | | WATER/SALINE | | | | | | | , 10 ML [place] | | | | | | | CHEMOTHER, | | | | | | | IV PUSH,EA | | | | | | | ADD DRUG TX | | | | | | | CHEMOTHER, | | | | | | | IV INFUSION, | | | | | | | 1 HR TX | | | | | | | CHEMOTHER, | | | | | | | IV INFUSION, | | | | | | | EA HR TX | | | | | | | CHEMOTHER,NO | | | | | | | N-HORMONE | | | | | | | ANTI-NEOPL, | | | | | | | SUB-Q/IM [place] | | | | | | | [...] + + | 07/13/ | Hospital | [facility] | Sterling Thomas, | Encounter for | | 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 | MED CTR CHEMO | MD [address] | antineoplastic | | | | INFUSION [address] | [place], [place] | chemotherapy ; | | | | [place], | [address] | Squamous cell | | | | [place] [address] | [phone] | carcinoma of larynx | | | | [phone] | | (HCC) | +--------+ + + [...] by | 60 vial | 0 | 08// | | | mL nebulizer | nebulization [...] | | | 18 | | | MESERETON) MISC | needed. | | | | | + + + +---------+ + + | | Take 1-2 tablets by | 30 | 0 | //20 | | | HYDROcodone-acetamin | mouth every [...] | | | | | | | ([facility]), Encounter for | | | [...] | | | | | | breathing ([facility]), | | | | | | | Chronic obstructive | | | | | | | pulmonary disease, | | | | | | | unspecified COPD | | | | | | | type ([facility]) | | | | | [...] | | | | | | | ([facility]), Encounter for | | | [...] | | | | | | | ([facility]), Encounter for | | | | | | | antineoplastic | | | | | | | chemotherapy | | | | | | + + + +---------+ + + as of this encounter Progress Notes Kasey Gongora, RN - 07/13/2018 1530 PDTDischarged via wheelchair to radiation therapy Kasey Gongora, RN - 07/13/2018 1515 PDTReports that she is [...] | | | | | [place] [address] | | | | | | [phone] | | | | | | | | +--------+ + + + + | 10/16/ | Appointment | Oncology | Sterling Thomas, | | | 2017 | | | MD [address] | | | | | | [place] | | | | | | [address] | | | | | | [phone] | | | | | | | [...] | | | | | Care, Starting 07/13/18 at | | | | | [...] PDT | | | | | Starting e 07/13/18 at 1516, For | | | | [...] | | | | | Minutes, ONCE, e 07/13/18 at | | | | | [...] | | | | | Intravenous, ONCE, 07/13/18 at | | | | | [...] | | | | | Intravenous, ONCE, 07/13/18 at | | | | | | | 1400, For 1 dose, Administer 500 | | | | | | | mL post-cisplatin. | | | | | | + +---------+ +---+-------+---+ +---+---+ | | | +---+---+ in this encounter"
--- OUTSIDE RECORDS SUMMARY | ~2018-07-16 | XMS | Encounter Summary ---
Demographics + + + | Address | [address] | | | [place] [address] | + + + | Home Phone [...] + | Author | [facility] | | | and Mikeana | + + + | Organization | [facility] | [...] Team Providers + +------+ + | Care Share Dairy Farmer Name | Role | Phone | + [...] | Squamous | Estefanía M, | [address] | | | | | cell | MD [address] | [place], | | | | | carcinoma of | [address] | [place] [address] | | | | | larynx | [place], | Phone: | | | | | (HCC) | [place] [address] | [phone] | | | | | Procedures | Phone: | Fax: | | | | | CT Treatment | [phone] | [phone] | | | | | Plan | Fax: | | | | | | Complex CT | [phone] | | | | | | [place] [...] | Squamous | Estefanía M, | [address] | | | | | cell | MD [address] | [place], | | | | | carcinoma of | [address] | [place] [address] | | | | | larynx | [place], | Phone: | | | | | (HCC) | [place] [address] | [phone] | | | | | Procedures | Phone: | Fax: | | | | | CT Treatment | [phone] | [phone] | | | | | Plan | Fax: | | | | | | Complex CT | [phone] | | | | | | [place] [...] | Squamous | Estefanía M, | [address] | | | | | cell | MD [address] | [place], | | | | | carcinoma of | [address] | [place] [address] | | | | | larynx | [place], | Phone: | | | | | (HCC) | [place] [address] | [phone] | | | | | Procedures | Phone: | Fax: | | | | | CT Treatment | [phone] | [phone] | | | | | Plan | Fax: | | | | | | Complex CT | [phone] | | | | | | [place] PLAN | | | +--------+--------+ + + + + Encounter Details +--------+ + + + + | Date | Type | Department | Care Team | Description | +--------+ + + + + | 07/01/ | Hospital | [facility] | Estefanía Hairston | 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 | | | | [place], | [place] | ([facility]ERLY [facility]) | | | | [place] [address] | [address] | | | | | [phone] | | | +--------+ + + + [...] | | | | | [place] [address] | | | | | | [phone] | | | | | | | | +--------+ + + + + | 08/03/ | Appointment | Oncology | Sterling Thomas, | | | 2017 | | | MD [address] | | | | | | [place] | | | | | | [address] | | | | | | [phone] | | | | | | | [...]
--- OUTSIDE RECORDS SUMMARY | ~2018-07-16 | XMS | Encounter Summary ---
Demographics + + + | Address | [address] | | | [place] [address] | + + + | Home Phone | | + + + | Preferred Language | Unknown | + + + | Marital Status | Single | + + + | Advent Affiliation | Unknown | + + + | Race | Unknown | + + + | Ethnic Group | Unknown | + + + Author + + + | Author | [facility] | | | and Mikeana | + + + | Organization | [facility] | | | and [...] Team Providers + +------+ + | Care Perl Software Engineer Name | Role | Phone | [...] neoplasm of | [address] | [address] [place] | | | | | larynx, | [address] | [place], | | | | | unspecified | [place], | [place] [address] | | | | | (HCC) | [place] | Phone: | | | | | Procedures | [address] | [phone] | | | | | [place] IV | Phone: | Fax: | | | | | INFUSION, | [phone] | [phone] | | | | | HYDRATION, | Fax: | | | | | | 31-60 MIN | [phone] | | | | | | [place] IV | | | | | | | INFUSION, | | | | | | | HYDRATION, | | | | | | | EA ADD HOUR | | | | | | | LA | | | | | | | ONDANSETRON | | | | | | | ORAL LA | | | | | | | ORAL | | | | | | | DEXAMETHASON | | | | | | | E, .25 MG | | | | | | | LA | | | | | | | CHEMOTHERAPY | | | | | | | DRUG LA | | | | | | | CISPLATIN 10 | | | | | | | MG | | | | | | | INJECTION | | | | | | | LA ADRENALIN | | | | | | | EPINEPHRINE | | | | | | | INJECT, .1 | | | | | | | MG LA | | | | | | | DIPHENHYDRAM | | | | | | | INE HCL | | | | | | | INJECTIO, 50 | | | | | | | MG LA | | | | | | | METHYLPREDNI | | | | | | | SOLONE | | | | | | | INJECTION, | | | | | | | 125 MG LA | | | | | | | ALBUTEROL | | | | | | | COMP CON, 1 | | | | | | | MG LA | | | | | | | ALBUTEROL | | | | | | | NON-COMP | | | | | | | CON, 1 MG | | | | | | | LA | | | | | | | INJECTION, | | | | | | | FAMOTIDINE, | | | | | | | 20 MG LA | | | | | | | NORMAL | | | | | | | SALINE | | | | | | | SOLUTION | | | | | | | INFUS, 500 | | | | | | | ML LA | | | | | | | NORMAL | | | | | | | SALINE | | | | | | | SOLUTION | | | | | | | INFUS, 250 | | | | | | | ML LA | | | | | | | STERILE | | | | | | | WATER/SALINE | | | | | | | , 10 ML LA | | | | | | | CHEMOTHER, | | | | | | | IV PUSH,EA | | | | | | | ADD DRUG LA | | | | | | | CHEMOTHER, | | | | | | | IV INFUSION, | | | | | | | 1 HR LA | | | | | | | CHEMOTHER, | | | | | | | IV INFUSION, | | | | | | | EA HR LA | | | | | | | CHEMOTHER,NO | | | | | | | N-HORMONE | | | | | | | ANTI-NEOPL, | | | | | | | SUB-Q/IM LA | | | | | | | [...] + + | 07/13/ | Hospital | [facility] | Sterling Thomas, | Encounter for | | 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 | MED CTR CHEMO | MD [address] | antineoplastic | | | | INFUSION [address] | [place], [place] | chemotherapy ; | | | | [place], | [address] | Squamous cell | | | | [place] [address] | [phone] | carcinoma of larynx | | | | [phone] | | (HCC) | +--------+ + + [...] | | | | | [place] [address] | | | | | | [phone] | | | | | | | | +--------+ + + + + | 10/16/ | Appointment | Oncology | Sterling Thomas, | | | 2017 | | | MD [address] | | | | | | [place] | | | | | | [address] | | | | | | [phone] | | | | | | | [...]
--- OUTSIDE RECORDS SUMMARY | ~2018-07-16 | XMS | Encounter Summary ---
Demographics + + + | Address | [address] | | | [place] [address] | + + + | Home Phone | | + + + | Preferred Language | Unknown | + + + | Marital Status | Single | + + + | Lutheran Affiliation | Unknown | + + + [...] Team Providers + +------+ + | Care Lay Out Inspector Name | Role | Phone | + [...] | cell | MD [address] | [place] | | | | | carcinoma of | [address] | [place], [place] | | | | | larynx | [place], | [address] | | | | | (HCC) | [place] [address] | Phone: | | | | | Procedures | Phone: | [phone] | | | | | PET CT Skull | [phone] | Fax: | | | | | Base To Mid | Fax: | [phone] | | | | | Thigh | [phone] | | +--------+--------+ + + + + [...] | cell | MD [address] | [place] | | | | | carcinoma of | [address] | [place], [place] | | | | | larynx | [place], | [address] | | | | | ([facility]ERLY [facility]) | [place] [address] | Phone: | | | | | Procedures | Phone: | [phone] | | | | | PET CT Skull | [phone] | Fax: | | | | | Base To Mid | Fax: | [phone] | | | | | Thigh | [phone] | | +--------+--------+ + + + + [...] | cell | MD [address] | [place] | | | | | carcinoma of | [address] | [place], [place] | | | | | larynx | [place], | [address] | | | | | ([facility]ERLY [facility]) | [place] [address] | Phone: | | | | | Procedures | Phone: | [phone] | | | | | PET CT Skull | [phone] | Fax: | | | | | Base To Mid | Fax: | [phone] | | | | | Thigh | [phone] | | +--------+--------+ + + + + Encounter Details +--------+ + + + + | Date | Type | Department | Care Team | Description | +--------+ + + + + | 07/01/ | Hospital | [facility] | Estefanía Hairston | 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 | | | | [address] [place] | [address] [place] | ([facility]) | | | | [place] [address] | [id number] | | | | | [phone] | | | +--------+ + + + [...] | | | | | [place] [address] | | | | | | [phone] | | | | | | | | +--------+ + + + + | 08/03/ | Appointment | Oncology | Sterling Thomas, | | | 2017 | | | MD [address] | | | | | | [place] | | | | | | [address] | | | | | | [phone] | | | | | | | [...] | Procedure Note | + + | Roman Zelaya Results In - 07/02/2018 1214 PDT PET [...] millicur | | | | Intravenous, ONCE, Lenore 07/01/18 at | | PDT | ies | | | | 1115, For 1 dose | | | | | | + +--------+ + +------+------+ +---+---+ | | | +---+---+ in this encounter"
--- OUTSIDE RECORDS SUMMARY | ~2018-07-16 | XMS | Encounter Summary ---
Demographics + + + | Address | [address] | | | [place] [address] | + + + | Home Phone | | + + + | Preferred Language | Unknown | + + + | Marital Status | Single | + + + | Rastafari Affiliation | Unknown | + + + | Race | Unknown | + + + | Ethnic Group | Unknown | + + + Author + + + | Author | [facility] | | | and Mikeana | + + + | Organization | [facility] | | | and [...] Team Providers + +------+ + | Care Database Specialist Name | Role | Phone | [...] neoplasm of | [address] | [address] | | | | | larynx, | [address] | [place], | | | | | unspecified | [place], | [place] [address] | | | | | (HCC) | [place] | Phone: | | | | | Procedures | [address] | [phone] | | | | | [place] IV | Phone: | Fax: | | | | | INFUSION, | [phone] | [phone] | | | | | HYDRATION, | Fax: | | | | | | 31-60 MIN | [phone] | | | | | | ID [...] + + | 07/14/ | Hospital | [facility] | Sterling Thomas, | 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 | | | | INFUSION [address] | [place], [place] | ([facility]); Encounter for | | | | [place], | [address] | antineoplastic | | | | [place] [address] | [phone] | chemotherapy | | | | [phone] | | | +--------+ + + + [...] | | | | | | | ([facility]), Encounter for | | | [...] | | | | | | | ([facility]), Status post | | | | | | | emergency | | | | | | | tracheotomy for | | | | | | | assistance in | | | | | | | breathing ([facility]), | | | | | | | Chronic obstructive | | | | | | | pulmonary disease, | | | | | | | unspecified COPD | | | | | | | type ([facility]) | | | | | [...] | | | | | | | ([facility]), Encounter for | | | [...] | | | | | | | ([facility]), Encounter for | | | | | | | antineoplastic | | | | | | | chemotherapy | | | | | | + + + +---------+ + + as of this encounter Progress Notes Kasey Gongora, RN - 07/14/2018 1435 PDTDischarged to radiation therapy Christine Gongora, MALU - 07/14/2018 1308 PDTPatient arrived ambulatory for [...] | | | | | [place] [address] | | | | | | [phone] | | | | | | | | +--------+ + + + + | 08/03/ | Appointment | Oncology | Sterling Thomas, | | | 2017 | | | MD [address] | | | | | | [place] | | | | | | [address] | | | | | | [phone] | | | | | | | [...] | | | | | Care, Starting Thu07/14/18 at | | | | | [...] | mL/hr | | | Intravenous, ONCE, 07/14/18 at | | PDT | | | | | 1300, For 1 dose | | | | | | + +---------+ +---+-------+---+ +---+---+ | | | +---+---+ in this encounter"
--- OUTSIDE RECORDS SUMMARY | ~2018-07-16 | XMS | Encounter Summary ---
Demographics + + + | Address | [address] | | | [place] [address] | + + + | Home Phone | | + + + | Preferred Language | Unknown | + + + | Marital Status | Single | + + + | Buddhist Affiliation | Unknown | + + + | Race | Unknown | + + + | Ethnic Group | Unknown | + + + Author + + + | Author | [facility] | | | and Mikeana | + + + | Organization | [facility] | | | and [...] Team Providers + +------+ + | Care Sed High School Teacher Name | Role | Phone | + [...] | carcinoma of | [address] | [address] | | | | | larynx | [place], | [place], | | | | | (HCC) | [place] | [place] [address] | | | | | | [address] | Phone: | | | | | | Phone: | [phone] | | | | | | [phone] | Fax: | | | | | | Fax: | [phone] | | | | | | [phone] | | +--------+ + + + + + Encounter Details +--------+ + + + + | Date | Type | Department | Care Team | Description | +--------+ + + + + | 07/13/ | Hospital | [facility] | Sterling Thomas, | 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 | MED CTR NUTRITION | MD [address] | carcinoma of larynx | | | | SERVICES [address] | [place], [place] | ([facility]) | | | | [place], | [address] | | | | | [place] [address] | [phone] | | | | | [phone] | | | | | | | [...] by | 60 vial | 0 | 08/23/20 | | | mL nebulizer | nebulization [...] | | | ([facility]), Encounter for | | | | | [...] | | | ([facility]), Status post | | | | | | | emergency | | | | | | | tracheotomy for | | | | | | | assistance in | | | | | | | breathing ([facility]), | | | | | | | Chronic obstructive | | | | | | | pulmonary disease, | | | | | | | unspecified COPD | | | | | | | type ([facility]) | | | | | | + [...] | | | ([facility]), Encounter for | | | | | [...] | | | ([facility]), Encounter for | | | | | [...] 1.5") BMI 26.68 Estimated needs (wt. 65kg) [id number] kcals/day 65-78 gm pro/day Medications: reviewed ASSESSMENT/PLAN: [...] | 07/23/ | Appointment | Oncology | Mckenna Jamie | | | 2017 | | | MD Guero Jackson | | | | | | [address] | | | | | | [place] [address] | | | | | | [phone] | | | | | | | | +--------+ + + + + | 08/03/ | Appointment | Oncology | Sterling Thomas, | | | 2017 | | | MD Guero NICOLE | | | | | | [place] | | | | | | [address] | | | | | | [phone] | | | | | | | [...]
--- OUTSIDE RECORDS SUMMARY | ~2018-07-16 | XMS | Encounter Summary ---
Demographics + + + | Address | [address] | | | [place] [address] | + + + | Home Phone | | + + + | Preferred Language | Unknown | + + + | Marital Status | Single | + + + | Hoahaoism Affiliation | Unknown | + + + | Race | Unknown | + + + | Ethnic Group | Unknown | + + + Author + + + | Author | [facility] | | | and Mikeana | + + + | Organization | [facility] | | | and [...] Team Providers + +------+ + | Care Door To Door Selling Distributor Name | Role | Phone | + [...] | | | | (HCC) | [place] [address] | [facility], [place] | | | | | | Phone: | [address] Phone: | | | | | | [phone] | [phone] | | | | | | Fax: | Fax: | | | | | | [phone] | [phone] | + + + + + + + Encounter Details +--------+ + + + + | Date | Type | Department | Care Team | Description | +--------+ + + + + | 06/30/ | Hospital | [facility] | Sterling Thomas, | 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 | | | | ONCOLOGY CLINIC [address] | [place] | (HCC) (Primary Dx) | | | | [address] | [address] | | | | | [place] [address] | [phone] | | | | | [phone] | | | +--------+ + + + [...] | | | | | | | ([facility]), Status post | | | | | | | emergency | | | | | | | tracheotomy for | | | | | | | assistance in | | | | | | | breathing ([facility]), | | | | | | | [...] | | | | | [place] [address] | | | | | | [phone] | | | | | | | | +--------+ + + + + | 08/03/ | Appointment | Oncology | Sterling Thoams, | | | 2017 | | | MD Guero NICOLE | | | | | | [place] | | | | | | [address] | | | | | | [phone] | | | | | | | [...]
--- OUTSIDE RECORDS SUMMARY | ~2018-07-16 | XMS | Encounter Summary ---
Demographics + + + | Address | [address] | | | [place] [address] | + + + | Home Phone | | + + + | Preferred Language | Unknown | + + + | Marital Status | Single | + + + | Mandaen Affiliation | Unknown | + + + | Race | Unknown | + + + | Ethnic Group | Unknown | + + + Author + + + | Author | [facility] | | | and [place]ana | + + + | Organization | [facility] [...] Team Providers + +------+ + | Care Vascular Nurse Name | Role | Phone | + +------+ + | Yeyo Anderson DO | PCP | | + +------+ + Encounter Details +--------+ + + + + | Date | Type | Department | Care Team | Description | +--------+ + + + + | 07/13/ | Hospital | [facility] | Sterling Thomas, | 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 | MD Jack W [address] | carcinoma of larynx | | | | ONCOLOGY CLINIC [address] | [place] | (HCC) (Primary Dx) | | | | [address] | [address] | | | | | [place] [address] | [phone] | | | | | [phone] | | | +--------+ + + + [...] | | | | ([facility]), Status post | | | [...] different from the original. Hematology-Oncology Progress Note [facility] Pt. Name/Age/: Crystal Sadler 62 y.o. 1955 CSN: [id number] Date of service: 07/13/2018 Provider: Sterling Thomas [...] this chart may have been created with [employer] voice recognition software. Occasi onal wrong-word or [...] | | | | | | [place] [address] | | | | | | [phone] | | | | | | | | +--------+ + + + + | 08/03/ | Appointment | Oncology | Sterling Thomas, | | | 2017 | | | MD Guero SALGADO | | | | | | [place] | | | | | | [address] | | | | | | [phone] | | | | | | | [...] | | | | ([facility]) | results section. | + +--------+ + + + | MAGNESIUM | STAT | 07/13/2018 | Squamous cell | Results for this | | | | 0824 PDT | carcinoma of larynx | procedure are in the | | | | | ([facility]) | results section. | + +--------+ + + + | COMPREHENSIVE | STAT | 07/13/2018 | Squamous cell | Results for this | | METABOLIC PANEL | | 0824 PDT | carcinoma of larynx | procedure are in the | | | | | ([facility]) | results section. | + +--------+ + + + in this encounter Results Magnesium (07/13/2018823) + +-------+ + + | Component | Value | Ref Range | Performed At | + +-------+ + + | Magnesium | 2.0 | 1.8 - 2.5 mg/dL | [facility] | | | | | [facility] | | | | | CENTER [...] [address] | [place] | [phone] | | [facility] | | [address] | | | - LABORATORY | | | | + + + + + | [facility] | [address] | [place] | | | [facility] | | [address] | | | - LABORATORY | | | | + + + + + CBC with Differential (07/13/2018823) + + + + + | Component | Value | Ref Range | Performed At | + + + + + | WBC | 7.6 | 4.0 - 11.0 K/uL | [facility] | | | | | [facility] | | | | | CENTER [...] 0 - 2 per 100 WBC's | [facility] | | | | | [facility] | | | | | CENTER - | | | | | LABORATORY | + + + + + | NRBC ABS | 0.00 | 0.00 - 0.01 K/uL | [facility] | | | | [...] [address] | [place] | [phone] | | [facility] | | [address] | | | - LABORATORY | | | | + + + + + | [facility] | [address] | [place] | | | [facility] | | [address] | | | - LABORATORY | | | | + + + + + Comprehensive Metabolic Panel (07/13/2018823) + + + + + | Component | Value | Ref Range | Performed At | + + + + + | NA | 138 | 136 - 149 mmol/L | [facility] | | | | | [facility] | | | | | CENTER [...] [facility] | | | | | [facility] MEDICAL | | | [...] ST. | | Serum/Plasma | | | [facility] | | | | | CENTER - | | | | | LABORATORY | + + + + + | eGFR if not | >60Comment: GLOMERULAR | >=60 mL/min/1.73m2 | [facility] | | MAURITANIAN | FILTRATION | | [facility] | | | RATE,ESTIMATED mL/min | | CENTER - | | | /1.82e5Jgkm than 60 | | LABORATORY | | [...] [facility] | | | | | [facility] | | | | | CENTER - | | | | | LABORATORY | + + + + + | ALBUMIN | 3.7 | 3.2 - 5.0 g/dL | [facility] | | | | | [facility] | | | | | CENTER [...] | | appended report. These | | [facility] | | | results have been | | CENTER - | | | appended to a previously | | LABORATORY | | | preliminary verified | | | | | report. | | | + + + + + | GLOBULIN | 3.7 | 2.1 - 3.8 g/dL | [facility] | | | | | [facility] | | | | | CENTER - | | | | | LABORATORY | + + + + + | Albumin/Globulin | 1.0 | 0.8 - 2.0 | [facility] | | ratio | | | [facility] | | | | | CENTER - | | | | | LABORATORY | + + + + + | LUZ/NADEEM | 19.5 | | [facility] | | | | | [facility] | | | | | CENTER [...] [address] | [place] | [phone] | | [facility] | | [address] | | | - LABORATORY | | | | + + + + + | [facility] | [address] | [place], [place] | | | 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
--- OUTSIDE RECORDS SUMMARY | ~2018-07-16 | XMS | Encounter Summary ---
Demographics + + + | Address | [address] | | | [place] [address] | + + + | Home Phone | | + + + | Preferred Language | Unknown | + + + | Marital Status | Single | + + + | Denominational Affiliation | Unknown | + + + | Race | Unknown | + + + | Ethnic Group | Unknown | + + + Author + + + | Author | [facility] | | | and Mikeana | + + + | Organization | [facility] | | [...] Team Providers + +------+ + | Care Purse Seiner Name | Role | Phone | + [...] neoplasm of | [address] | [address] | | | | | larynx, | [address] | [place], | | | | | unspecified | [place], | [place] [address] | | | | | (HCC) | [place] | Phone: | | | | | Procedures | [address] | [phone] | | | | | [place] IV | Phone: | Fax: | | | | | INFUSION, | [phone] | [phone] | | | | | HYDRATION, | Fax: | | | | | | 31-60 MIN | [phone] | | | | | | [place] IV | | | | | | | INFUSION, | | | | | | | HYDRATION, | | | | | | | EA ADD HOUR | | | | | | | IL | | | | | | | ONDANSETRON | | | | | | | ORAL IL | | | | | | | ORAL | | | | | | | DEXAMETHASON | | | | | | | E, .25 MG | | | | | | | IL | | | | | | | CHEMOTHERAPY | | | | | | | DRUG IL | | | | | | | CISPLATIN 10 | | | | | | | MG | | | | | | | INJECTION | | | | | | | IL ADRENALIN | | | | | | | EPINEPHRINE | | | | | | | INJECT, .1 | | | | | | | MG IL | | | | | | | DIPHENHYDRAM | | | | | | | INE HCL | | | | | | | INJECTIO, 50 | | | | | | | MG IL | | | | | | | METHYLPREDNI | | | | | | | SOLONE | | | | | | | INJECTION, | | | | | | | 125 MG IL | | | | | | | ALBUTEROL | | | | | | | COMP CON, 1 | | | | | | | MG IL | | | | | | | ALBUTEROL | | | | | | | NON-COMP | | | | | | | CON, 1 MG | | | | | | | IL | | | | | | | INJECTION, | | | | | | | FAMOTIDINE, | | | | | | | 20 MG IL | | | | | | | NORMAL | | | | | | | SALINE | | | | | | | SOLUTION | | | | | | | INFUS, 500 | | | | | | | ML IL | | | | | | | NORMAL | | | | | | | SALINE | | | | | | | SOLUTION | | | | | | | INFUS, 250 | | | | | | | ML IL | | | | | | | STERILE | | | | | | | WATER/SALINE | | | | | | | , 10 ML IL | | | | | | | CHEMOTHER, | | | | | | | IV PUSH,EA | | | | | | | ADD DRUG IL | | | | | | | CHEMOTHER, | | | | | | | IV INFUSION, | | | | | | | 1 HR IL | | | | | | | CHEMOTHER, | | | | | | | IV INFUSION, | | | | | | | EA HR IL | | | | | | | CHEMOTHER,NO | | | | | | | N-HORMONE | | | | | | | ANTI-NEOPL, | | | | | | | SUB-Q/IM IL | | | | | | | [...] + + | 07/15/ | Hospital | [facility] | Sterling Thomas, | 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 | | | | INFUSION [address] | [place], [place] | ([facility]); Encounter for | | | | [place], | [address] | antineoplastic | | | | [place] [address] | [phone] | chemotherapy | | | | [phone] | | | +--------+ + + + [...] | | | ([facility]), Encounter for | | | | [...] | | | ([facility]), Encounter for | | | | [...] | | | ([facility]), Encounter for | | | | [...] | | | | | [place] [address] | | | | | | [phone] | | | | | | | | +--------+ + + + + | 08/03/ | Appointment | Oncology | Sterling Thomas, | | | 2017 | | | MD Guero NICOLE | | | | | | [place] | | | | | | [address] | | | | | | [phone] | | | | | | | [...] | | | | | Care, Starting [facility] 07/15/18 at | | | | [...] | | | | | Minutes, ONCE, [facility] 07/15/18 at | | | | [...] | mL/hr | | | Intravenous, ONCE, [facility] 07/15/18 at | | PDT | [...]
--- OUTSIDE RECORDS SUMMARY | ~2018-07-16 | XMS | Encounter Summary ---
Demographics + + + | Address | [address] | | | [place] [address] | + + + | Home Phone [...] + + + | Author | [facility] | | | and Mikeana | + + + | Organization | [facility] | | | and Mikeana [...] Team Providers + +------+ + | Care Binding Machine Operator Name | Role | Phone | + +------+ + | Yeyo Anderson DO | PCP | | + +------+ + Encounter Details +--------+ + + + + | Date | Type | Department | Care Team | Description | +--------+ + + + + | 07/13/ | Hospital | [facility] | Goyo Moe | 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 | J, 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 | | | | ONCOLOGY CLINIC [address] | [address] | (HCC) (Primary Dx) | | | | [address] [place] | [place] [address] | | | | | [place] [address] | [phone] | | | | | [phone] | | | +--------+ + + + [...] | | | | | ([facility]), Encounter for | | | | [...] | | | | | ([facility]), Status post | | | | | | | emergency | | | | | | | tracheotomy for | | | | | | | assistance in | | | | | | | breathing ([facility]), | | | | | | | Chronic obstructive | | | | | | | pulmonary disease, | | | | | | | unspecified COPD | | | | | | | type ([facility]) | | | | | [...] | | | | | ([facility]), Encounter for | | | | [...] | | | | | ([facility]), Encounter for | | | | | | | antineoplastic | | | | | | | chemotherapy | | | | | | + + + +---------+ + + as of this encounter Progress Notes Goyo Moe, PharmD - 07/13/2018 1136 PDTFormatting of this note may be different fr om the original. Clinical Oncology Pharmacy Services Progress Note Chemotherapy Education Session [facility] Pt. Name/Age/: Crystal Sadler 62 y.o. 1955 Med. Record Number: [id number] Identifying Statement: Crystal Sadler is a 62 y.o. female from [address] [place] [address] with The encounter diagnosis was Squamous cell [...] 06/01/2018 ORTHOPEDIC SURGERY ROTATOR CUFF REPAIR Right 1992 TONSILLECTOMY Social History Social History Marital status: [...] | | | | | [place] [address] | | | | | | [phone] | | | | | | | | +--------+ + + + + | 08/03/ | Appointment | Oncology | Sterling Thomas, | | | 2017 | | | MD Guero NICOLE | | | | | | [place] | | | | | | [address] | | | | | | [phone] | | | | | | | [...]
--- OUTSIDE RECORDS SUMMARY | ~2018-07-16 | XMS | Encounter Summary ---
Demographics + + + | Address | [address] | | | [place] [address] | + + + | Home Phone [...] Author | [facility] | | | and [place]ana | + + + | Organization | [facility] | | [...] Team Providers + +------+ + | Care Diesel Mechanic Name | Role | Phone | + +------+ + | Yeyo Anderson DO | PCP | | + +------+ + Encounter Details +--------+ + + + + | Date | Type | Department | Care Team | Description | +--------+ + + + + | 07/13/ | Hospital | [facility] | Goyo Moe | 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 | J, 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 | | | | ONCOLOGY CLINIC [address] | [address] [place] | (HCC) (Primary Dx) | | | | [address] [place] | [place] [address] | | | | | [place] [address] | [phone] | | | | | [phone] | | | +--------+ + + + [...] | | | | ([facility]), Encounter for | | | [...] | | | | ([facility]), Encounter for | | | [...] | | | | ([facility]), Encounter for | | | [...] Pharmacy Services Progress Note Chemotherapy Education Session [facility] Pt. Name/Age/: Crystal Sadler 62 y.o. 1955 Med. Record Number: [id number] Identifying Statement: Crystal Sadler is a 62 y.o. female from [address] [place] [address] with The encounter diagnosis was Squamous cell [...] | | | | | [place] [address] | | | | | | [phone] | | | | | | | | +--------+ + + + + | 08/03/ | Appointment | Oncology | Sterling Thomas, | | | 2017 | | | MD [address]ICOLE | | | | | | [place] | | | | | | [address] | | | | | | [phone] | | | | | | | [...]
--- OUTSIDE RECORDS SUMMARY | ~2018-07-16 | XMS | Encounter Summary ---
Demographics + + + | Address | [address] | | | [place] [address] | + + + | Home Phone [...] | Author | [facility] | | | and [place] | + + + | Organization | [facility] | | | and [...] Team Providers + +------+ + | Care Consultant Nurse Name | Role | Phone | [...] | | | | | [place] [address] | | | | | | [phone] | | | +--------+ + + + [...] | | | | | [place] [address] | | | | | | [phone] | | | | | | | | +--------+ + + + + | 08/03/ | Appointment | Oncology | Sterling Thomas, | | | 2017 | | | MD [address]ero NICOLE | | | | | | [place] | | | | | | [address] | | | | | | [phone] | | | | | | | [...]
--- OUTSIDE RECORDS SUMMARY | ~2018-07-16 | XMS | Encounter Summary ---
Demographics + + + | Address | [address] | | | [place] [address] | + + + | Home Phone | | + + + | Preferred Language | Unknown | + + + | Marital Status | Single | + + + | Temple Affiliation | Unknown | + + + | Race | Unknown | + + + | Ethnic Group | Unknown | + + + Author + + + | Author | [facility] | | | and [place] | + + + | Organization | [facility] | | | and [...] Providers + +------+ + | Care Manager Business Banking Name | Role | Phone | + [...] | Squamous | Estefanía Warner | [address] [place] | | | | | cell | MD [address] | [place], | | | | | carcinoma of | [address] | [place] [address] | | | | | larynx | [place], | Phone: | | | | | (HCC) | [place] [address] | [phone] | | | | | Procedures | Phone: | Fax: | | | | | CT Treatment | [phone] | [phone] | | | | | Plan | Fax: | | | | | | Complex CT | [phone] | | | | | | [place] [...] [address] [place] | | | | | ([facility]) | [place] [address] | [place], [place] | | | | | | Phone: | [phone] Phone: | | | | | | [phone] | [phone] | | | | | | Fax: | Fax: | | | | | | [phone] | [phone] | + + + + + + [...] | cell | MD [address] | [place] | | | | | carcinoma of | [address] | [place] | | | | | larynx | [place], | [address] | | | | | ([facility]) | [place] [address] | Phone: | | | | | Procedures | Phone: | [phone] | | | | | PET CT Skull | [phone] | Fax: | | | | | Base To Mid | Fax: | [phone] | | | | | Thigh | [phone] | | +--------+--------+ + + + + [...] [address] | | | | | [place] OFFICE | [address] | [address] | | | | | OUTPATIENT | [place], | [place], | | | | | VISIT 25 | [place] [address] | [place] [address] | | | | | MINUTES | Phone: | Phone: | | | | | | [phone] | [phone] | | | | | | Fax: | Fax: | | | | | | [phone] | [phone] | +--------+ + + + + + Encounter Details +--------+ + + + + | Date | Type | Department | Care Team | Description | +--------+ + + + + | 06/25/ | Hospital | [facility] | Estefanía Hairston | 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 | | | | ONCOLOGY CLINIC [address] | [place], [place] | (HCC) (Primary Dx) | | | | [facility] | [address] | | | | | [place] [address] | | | | | | [phone] | | | +--------+ + + + [...] 2017 | | | MD Guero Jackson [address] | | | | | | [address] | | | | | | [place] [address] | | | | | | [phone] | | | | | | | | +--------+ + + + + | 08/03/ | Appointment | Oncology | Sterling Thomas, | | | 2017 | | | MD [address] | | | | | | [place] | | | | | | [address] | | | | | | [phone] | | | | | | | | +--------+ + + + + | 08/03/ | Appointment | Infusion Therapy | | | | 2017 | | | | | +--------+ + + + + | 08/03/ | Appointment | Nutrition | Joselin Falcon, | | 2017 | | | RDN [...] | + +--------+ + + | * [facility] Medical Oncology Clinic - | [...]
--- OUTSIDE RECORDS SUMMARY | ~2018-07-16 | XMS | Encounter Summary ---
Demographics + + + | Address | [address] | | | [place] [address] | + + + | Home Phone [...] | [facility] | | | and [place]ana | + + + | Organization | 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 | [place], | Phone: | | | | | (HCC) | [place] [address] | [phone] | | | | | Procedures | Phone: | Fax: | | | | | CT Treatment | [phone] | [phone] | | | | | Plan | Fax: | | | | | | Complex CT | [phone] | | | | | | [place] [...] | Squamous | Estefanía M, | [address] [place] | | | | | cell | MD [address] | [place], | | | | | 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 | [place], | Phone: | | | | | (HCC) | [place] [address] | [phone] | | | | | Procedures | Phone: | Fax: | | | | | CT Treatment | [phone] | [phone] | | | | | Plan | Fax: | | | | | | Complex CT | [phone] | | | | | | [place] [...] | Squamous | Estefanía M, | [address] [place] | | | | | cell | MD [address] | [place], | | | | | 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 | | | | [place], | [place], [place] | ([facility]) | | | | [place] [address] | [address] | | | | | [phone] | | | +--------+ + + + [...] | | | | | | | ([facility]), Status post | | | | | | | emergency | | | | | | | tracheotomy for | | | | | | | assistance in | | | | | | | breathing ([facility]), | | | | | | | Chronic obstructive | | | | | | | pulmonary disease, | | | | | | | unspecified COPD | | | | | | | type ([facility]) | | | | | [...] | | | | | [place] [address] | | | | | | [phone] | | | | | | | | +--------+ + + + + | 08/03/ | Appointment | Oncology | Sterling Thomas, | | | 2017 | | | MD [address]ero NICOLE | | | | | | [place] | | | | | | [address] | | | | | | [phone] | | | | | | | [...]
--- OUTSIDE RECORDS SUMMARY | ~2018-07-16 | XMS | Encounter Summary ---
Demographics + + + | Address | [address] | | | [place] [address] | + + + | Home Phone [...] [facility] | | | and [place] | + + + | Organization | [facility] | | | and Mikeana [...] Team Providers + +------+ + | Care Marionette Performer Name | Role | Phone | [...] | | | | (HCC) | [place] [address] | [facility], [place] | | | | | | Phone: | [address] Phone: | | | | | | [phone] | [phone] | | | | | | Fax: | Fax: | | | | | | [phone] | [phone] | + + + + + + + Encounter Details +--------+ + + + + | Date | Type | Department | Care Team | Description | +--------+ + + + + | 06/30/ | Hospital | [facility] | Sterling Thomas, | 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
--- OUTSIDE RECORDS SUMMARY | ~2018-07-16 | XMS | Encounter Summary ---
Demographics + + + | Address | [address] | | | [place] [address] | + + + | Home Phone | | + + + | Preferred Language | Unknown | + + + | Marital Status | Single | + + + | Samaritan Affiliation | Unknown | + + + | Race | Unknown | + + + | Ethnic Group | Unknown | + + + Author + + + | Author | [facility] | | | and Mikeana | + + + | Organization | [facility] | | [...] Team Providers + +------+ + | Care Transportation Officer Name | Role | Phone | + [...] neoplasm of | [address] | | | | | larynx, | [address] | [place], | | | | | unspecified | [place], | [place] [address] | | | | | (HCC) | [place] | Phone: | | | | | Procedures | [address] | [phone] | | | | | ND IV | Phone: | Fax: | | | | | INFUSION, | [phone] | [phone] | | | | | HYDRATION, | Fax: | | | | | | 31-60 MIN | [phone] | | | | | | ND IV | | | | | | | INFUSION, | | | | | | | HYDRATION, | | | | | | | EA ADD HOUR | | | | | | | ND | | | | | | | ONDANSETRON | | | | | | | ORAL ND | | | | | | | ORAL | | | | | | | DEXAMETHASON | | | | | | | E, .25 MG | | | | | | | ND | | | | | | | CHEMOTHERAPY | | | | | | | DRUG ND | | | | | | | CISPLATIN 10 | | | | | | | MG | | | | | | | INJECTION | | | | | | | ND ADRENALIN | | | | | | | EPINEPHRINE | | | | | | | INJECT, .1 | | | | | | | MG ND | | | | | | | DIPHENHYDRAM | | | | | | | INE HCL | | | | | | | INJECTIO, 50 | | | | | | | MG ND | | | | | | | METHYLPREDNI | | | | | | | SOLONE | | | | | | | INJECTION, | | | | | | | 125 MG ND | | | | | | | ALBUTEROL | | | | | | | COMP CON, 1 | | | | | | | MG ND | | | | | | | ALBUTEROL | | | | | | | NON-COMP | | | | | | | CON, 1 MG | | | | | | | ND | | | | | | | INJECTION, | | | | | | | FAMOTIDINE, | | | | | | | 20 MG ND | | | | | | | NORMAL | | | | | | | SALINE | | | | | | | SOLUTION | | | | | | | INFUS, 500 | | | | | | | ML ND | | | | | | | NORMAL | | | | | | | SALINE | | | | | | | SOLUTION | | | | | | | INFUS, 250 | | | | | | | ML ND | | | | | | | STERILE | | | | | | | WATER/SALINE | | | | | | | , 10 ML ND | | | | | | | CHEMOTHER, | | | | | | | IV PUSH,EA | | | | | | | ADD DRUG ND | | | | | | | CHEMOTHER, | | | | | | | IV INFUSION, | | | | | | | 1 HR ND | | | | | | | CHEMOTHER, | | | | | | | IV INFUSION, | | | | | | | EA HR ND | | | | | | | CHEMOTHER,NO | | | | | | | N-HORMONE | | | | | | | ANTI-NEOPL, | | | | | | | SUB-Q/IM ND | | | | | | | [...] + + | 07/14/ | Hospital | [facility] | Sterling [place], | 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 | | | | INFUSION [address] | [place], [place] | (FORMERLY [facility]); Encounter for | | | | [place], | [address] | antineoplastic | | | | [place] [address] | [phone] | chemotherapy | | | | [phone] | | | +--------+ + + + [...] | ([facility]LY [facility]), Encounter for | | | | | [...] | ([facility]), Encounter for | | | | | [...] | ([facility]), Encounter for | | | | | [...] | | | | | [place] [address] | | | | | | [phone] | | | | | | | | +--------+ + + + + | 08/03/ | Appointment | Oncology | Sterling Thomas, | | | 2017 | | | MD Guero NICOLE | | | | | | [place] | | | | | | [address] | | | | | | [phone] | | | | | | | [...]
--- OUTSIDE RECORDS SUMMARY | ~2018-07-16 | XMS | Encounter Summary ---
Demographics + + + | Address | [address] | | | [place] [address] | + + + | Home Phone [...] + + + | Author | [facility] | | | and [place]ana | + + + | Organization | [facility] | | [...] Team Providers + +------+ + | Care Foot And Ankle Surgeon Name | Role | Phone | + [...] | carcinoma of | [address] | | | | | larynx | [place], | [place], | | | | | (HCC) | [place] | [place] [address] | | | | | | [address] | Phone: | | | | | | Phone: | [phone] | | | | | | [phone] | Fax: | | | | | | Fax: | [phone] | | | | | | [phone] | | +--------+ + + + + [...] | ONCOLOGY CLINIC [address] | [place] | | | | | [address] [place] | [address] | | | | | [place] [address] | [phone] | | | | | [phone] | | | +--------+ + + + [...] | | | | | [place] [address] | | | | | | [phone] | | | | | | | | +--------+ + + + + | 08/03/ | Appointment | Oncology | Sterling Thomas, | | | 2017 | | | MD [address]LE | | | | | | [place] | | | | | | [address] | | | | | | [phone] | | | | | | | [...]
--- OUTSIDE RECORDS SUMMARY | ~2018-07-16 | XMS | Encounter Summary ---
Demographics + + + | Address | [address] | | | [place] [address] | + + + | Home Phone | | + + + | Preferred Language | Unknown | + + + | Marital Status | Single | + + + | Jain Affiliation | Unknown | + + + | Race | Unknown | + + + | Ethnic Group | Unknown | + + + Author + + + | Author | [facility] | | | and [place] | + + + | Organization | [facility] | | | and [place]ana [...] Team Providers + +------+ + | Care Legal Services Professional Name | Role | Phone | + [...] | cell | MD [address] | [place] | | | | | carcinoma of | [address] | [place], [place] | | | | | larynx | [place], | [address] | | | | | (HCC) | [place] [address] | Phone: | | | | | Procedures | Phone: | [phone] | | | | | PET CT Skull | [phone] | Fax: | | | | | Base To Mid | Fax: | [phone] | | | | | Thigh | [phone] | | +--------+--------+ + + + + [...] | cell | MD [address] | [place] | | | | | carcinoma of | [address] | [place], [place] | | | | | larynx | [place], | [address] | | | | | ([facility]) | [place] [address] | Phone: | | | | | Procedures | Phone: | [phone] | | | | | PET CT Skull | [phone] | Fax: | | | | | Base To Mid | Fax: | [phone] | | | | | Thigh | [phone] | | +--------+--------+ + + + + [...] | cell | MD [address] | [place] | | | | | carcinoma of | [address] | [place], [place] | | | | | larynx | [place], | [address] | | | | | ([facility]) | [place] [address] | Phone: | | | | | Procedures | Phone: | [phone] | | | | | PET CT Skull | [phone] | Fax: | | | | | Base To Mid | Fax: | [phone] | | | | | Thigh | [phone] | | +--------+--------+ + + + + Encounter Details +--------+ + + + + | Date | Type | Department | Care Team | Description | +--------+ + + + + | 07/01/ | Hospital | [facility] | Estefanía Hairston | 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 | | | | [address] [place] | [address] [place] | ([facility]) | | | | [place] [address] | [id number] | | | | | [phone] | | | +--------+ + + + [...] | | | | | ([facility]), Status post | | | | | | | emergency | | | | | | | tracheotomy for | | | | | | | assistance in | | | | | | | breathing ([facility]), | | | | | | | Chronic obstructive | | | | | | | pulmonary disease, | | | | | | | unspecified COPD | | | | | | | type ([facility]) | | | | | | + [...] | | | | | [place] [address] | | | | | | [phone] | | | | | | | | +--------+ + + + + | 08/03/ | Appointment | Oncology | Sterling Thomas, | | | 2017 | | | MD [address]LE | | | | | | [place] | | | | | | [address] | | | | | | [phone] | | | | | | | [...] | | | | | ([facility]) | results section. | + +--------+ + [...]
--- OUTSIDE RECORDS SUMMARY | ~2018-07-16 | XMS | Encounter Summary ---
Demographics + + + | Address | [address] | | | [place] [address] | + + + | Home Phone [...] + + | Author | [facility] | | | and [place]ana | + + + | Organization | [facility] | | | and Mikeana [...] Team Providers + +------+ + | Care Claims Sorter Name | Role | Phone | + [...] | Squamous | Estefanía Warner | [address] | | | | | cell | MD [address] | [place], | | | | | carcinoma of | [address] | [place] [address] | | | | | larynx | [place], | Phone: | | | | | (HCC) | [place] [address] | [phone] | | | | | Procedures | Phone: | Fax: | | | | | CT Treatment | [phone] | [phone] | | | | | Plan | Fax: | | | | | | Complex CT | [phone] | | | | | | [place] [...] [place] | | | | | ([facility]) | [place] [address] | [place], [place] | | | | | | Phone: | [phone] Phone: | | | | | | [phone] | [phone] | | | | | | Fax: | Fax: | | | | | | [phone] | [phone] | + + + + + + [...] | cell | MD [address] | [place] | | | | | carcinoma of | [address] | [place] | | | | | larynx | [place], | [address] | | | | | ([facility]) | [place] [address] | Phone: | | | | | Procedures | Phone: | [phone] | | | | | PET CT Skull | [phone] | Fax: | | | | | Base To Mid | Fax: | [phone] | | | | | Thigh | [phone] | | +--------+--------+ + + + + [...] [address] | | | | | ID OFFICE | [address] | [address] | | | | | OUTPATIENT | [place], | [place], | | | | | VISIT 25 | [place] [address] | [place] [address] | | | | | MINUTES | Phone: | Phone: | | | | | | [phone] | [phone] | | | | | | Fax: | Fax: | | | | | | [phone] | [phone] | +--------+ + + + + + Encounter Details +--------+ + + + + | Date | Type | Department | Care Team | Description | +--------+ + + + + | 06/25/ | Hospital | [facility] | Estefanía Hairston | 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 | | | | ONCOLOGY CLINIC [address] | [place], [place] | (HCC) (Primary Dx) | | | | [facility] | [address] | | | | | [place] [address] | | | | | | [phone] | | | +--------+ + + + [...] | | | | | ([facility]), Status post | | | | | | | emergency | | | | | | | tracheotomy for | | | | | | | assistance in | | | | | | | breathing ([facility]), | | | | | | | Chronic obstructive | | | | | | | pulmonary disease, | | | | | | | unspecified COPD | | | | | | | type ([facility]) | | | | | | [...] | | | | | | [place] [address] | | | | | | [phone] | | | | | | | | +--------+ + + + + | 08/03/ | Appointment | Oncology | Sterling Thomas, | | | 2017 | | | MD [address] | | | | | | [place] | | | | | | [address] | | | | | | [phone] | | | | | | | [...] | + +--------+ + + | * [facility] Oncology [facility] - | Routin [...]
--- OUTSIDE RECORDS SUMMARY | ~2018-07-16 | XMS | Encounter Summary ---
Demographics + + + | Address | [address] | | | [place] [address] | + + + | Home Phone [...] + + + | Author | [facility] | | | and Mikeana | + + + | Organization | 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 | | | | | | | ([facility]) | | | | | | | [...] [place], | | | | | | ([facility]) | [place] | | | | | | Squamous | [address] | | | | | | cell | Phone: | | | | | | carcinoma of | [phone] | | | | | | larynx | Fax: | | | | | | ([facility]) | [phone] | | | | | | Procedures [...] | | | | COPD type | [address] | | | | | | ([facility]) | Phone: | | | | | | Smoker | [phone] | | | | | | Tracheostomy | Fax: | | | | | | , acute | [phone] | | | | | | management | | | | | | | ([facility]) | | | | | | | 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 | | | | | | | ([facility]) | | | + + + + [...] | | | | | | [place] [address] | | | | | | | Phone: | | | | | | | [phone] | | | | | | | Fax: | | | | | | | [phone] | | + + + + + [...] + + | 06/01/ | Hospital | [facility] | Ac Hines, | Tracheostomy, acute | | 2018 - | Encounter | MED CTR SURGICAL | MD [address], | management ([facility]) | | | | [address] [place] | [address] [place], | (Primary Dx); | | 06/10/ | | [place] [address] | [place] [address] | Bilateral foot pain; | | 2018 | | [phone] | [phone] | Right leg pain; | | | | | | Laryngeal carcinoma | | | | | | ([facility]); Status post | | | | | | emergency | | | | | | tracheotomy for | | | | | | assistance in | | | | | | breathing ([facility]); | | | | | | Chronic obstructive | | | | | | pulmonary disease, | | | | | | unspecified COPD | | | | | | type ([facility]); Smoker; | | | | | | [...] S/p debulking surgery and trach placement at [facility], transferred to [facility] for acut e care - Admitted [...] days. Specialty: Otolaryngology Why: For wound re-check--in [place] office Contact information: [address], [address] [facility] [address] Discharge Medications New Medications Details Commode Bedside [...] signed by: Ashkan Dennis MD, 06/10/2018 10:44 [facility] in this encounter Discharge Instructions Ashkan Dennis MD - 06/10/2018You were admitted with new tracheostomy after surgery for laryngeal mass. You will need home health at home, and we are working with the [facility] to supply home tracheostomy care needs. Please follow up with Dr. Hines to jairon iglesias the tracheostomy and treatment for the laryngeal mass. The following attachments cannot be sent through Care Everywhere.Care, Tracheostomy (Englis h)Caring for Your Tracheostomy Tube and Stoma, Discharge Instructions (Citizen Of [place])Tracheostomy Care (Citizen [place])Tracheostomy Tube or Stoma: Your New Airway (Citizen Of [place])Tracheostomy Tube, Adjust ing to Your (Citizen [place])Tracheostomy Tube, Your, Answers to Common Questions About (Citizen [place])Tra cheostomy Tube, Your: Learning How to Communicate (Citizen [place])Tracheostomy Tube, Your: Tips for Eating (Citizen [place])Tracheostomy, Cleaning Your (Citizen [place])Tracheostomy, Suctioning Your (Citizen [place] )Tracheostomy, What Is (Citizen [place])in this encounter Medications at Time of Discharge [...] Progress Notes Ashkan Dennis MD - 06/09/2018 7297 PDTFormatting of this note may be different from karine lazar. [facility]G Hospitalist Progress Note Crystal Sadler [...] be okay to go home, asked [facility] to provide her with Passy Samantha [...] as outlined above. Ashkan Dennis 06/09/2018 17:20 [facility] Tiffani King, NURSE INFORMATICIST - 06/09/2018 0913 PDTPt is sleeping will return for trach care and suctioning when she Wakes up or her nurse calls. BS are clear but diminished SpO2 On RA is 92%, 98% on 5 lpm oxygen driven neb tx.Ac Hines MD - 06/09/2018 0759 PDTPt stable and awaiting placement. Path still pending. I' ll see her in office in next weekMarlena Diaz, NURSE INFORMATICIST - 06/09/2018 0129 PDTPatient trach w as [...] am if path is done Janee Cornell, NURSE INFORMATICIST - 06/08/2018 0956 PDTAt 0730 this morning [...] stoma to Dr. Dennis and to the 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 At 9:14 I received a call [...] ENT assessment. Electronically signed by: Janee Cornell, NURSE INFORMATICIST 8 10:09 Ashkan Dennis MD - 06/08/2018 0842 PDTFormatting of this note may be different from karine lazar. [facility] PM Hospitalist Progress Note Crystal Sadler [...] discussed with Dr. Hines who is in [facility], will discuss with Dr. Chavira today - [...] as outlined above. Ashkan Dennis 06/08/2018 8:51 [facility] Prosper Dudley MD - 06/07/2018 1258 PDTFormatting of this note may be different from karine kingston original. 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 She was referred to ENT at which point a bulky laryngeal mass was identified On 06/01/18 the patient underwent tumor debulking, Bx at [facility] in [place], [place] Post operatively the pt abruptly developed airway obstruction and returned to the OR at [facility] ch time an urgent tracheostomy was performed. The pt was then transferred to [facility] ICU for further care. Initially the [...] Bx and urgent tracheotomy tube placement at [facility] on 06/01/18 Now stable from cardio-pulm standpoint Arrangements being made for transfer to skilled facility for trach training Pt to follow up with Dr Hines in approx week's time for conversion to non-cuffed trach To start XRT in near future Seen by DUMP MOTORMAN eval; some dyphagia noted; dietary recommendations noted Would consider eval by med oncol as well Continue DEIDRE's Tracheal humidification Would check caloric intake. Nicotine replacement therapy added Continue regimen. Possible feeding tube in the future Further management per ENT service Electronically signed by: Prosper Dudley MD, DATE/TIME: 06/07/2018 12:58 [facility] HOSPITALIST [facility] MD - 06/06/2018 1144 PDTFormatting of this note may be different from the original. 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 She was referred to ENT at which point a bulky laryngeal mass was identified On 06/01/18 the patient underwent tumor debulking, Bx at [facility] in [place], [place] Post operatively the pt abruptly developed airway obstruction and returned to the OR at [facility] ch time an urgent tracheostomy was performed. The pt was transferred to [facility] ICU for further care. Initially the [...] Bx and urgent tracheotomy tube placement at [facility] on 06/01/18 Stable from cardio-pulm standpoint Arrangements being made for transfer to skilled facility for trach training Pt to follow up with Dr Hines in approx week's time for conversion to non-cuffed trach To start XRT in near future Seen by DUMP MOTORMAN eval; some dyphagia noted; dietary recommendations noted Would consider eval by med oncol as well Continue DEIDRE's Tracheal humidification Would check caloric intake. Nicotine replacement therapy added Continue regimen. Possible feeding tube in the future Electronically signed by: Prosper Dudley MD, DATE/TIME: 06/06/2018 11:44 [facility] HOSPITALIST Prosper Sierra MD - 06/05/2018 1304 PDTFormatting of this note may be different from the original. 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 She was referred to ENT at which point a bulky laryngeal mass was identified On 06/01/18 the patient underwent tumor debulking, Bx at [facility] in [place], [place] Post operatively the pt abruptly developed airway obstruction and returned to the OR at [facility] ch time an urgent tracheostomy was performed. The pt was transferred to [facility] ICU for further care. Initially the [...] start XRT in near future Seen by DUMP MOTORMAN eval; some dyphagia noted; dietary recommendations noted Would consider eval by med oncol as well Continue DEIDRE's Tracheal humidification Would check caloric intake. Nicotine replacement therapy added Continue regimen. Electronically signed by: Prosper Dudley MD, DATE/TIME: 06/05/2018 13:04 [facility]OSPITALIST [facility] center[facility] reeves MD - 06/04/2018 1246 PDTFormatting of this note may be different from the original. 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 She was referred to ENT at which point a bulky laryngeal mass was identified On 06/01/18 the patient underwent tumor debulking, Bx at [facility] in [place], [place] Post operatively the pt abruptly developed airway obstruction and returned to the OR at [facility] ch time an urgent tracheostomy was performed. The pt was transferred to [facility] ICU for further care. Initially the [...] To start XRT in near future Awaiting DUMP MOTORMAN eval altho pt appears to be able to tolerate po now; I am less optimistic abou t PO intake once XRT begins at which point pt may required feeding tube Would consider eval by med oncol as well Continue DEIDRE's Tracheal humidification Would check caloric intake. Nicotine replacement therapy added Check labs in AM Electronically signed by: Prosper Dudley MD, DATE/TIME: 06/04/2018 12:46 [facility]ITAL[facility] Heide Abdullahi RN - 06/02/2018 1638 PDTPt transferred down from ICU. Alert and able to mouth need or uses paper to communicate. 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 Will discharge 1-2 days. Janee Cornell, NURSE INFORMATICIST - 06/02/2018 1119 PDTPatient wi ll need [...] | | | | | [place] [address] | | | | | | [phone] | | | | | | | | +--------+ + + + + | 08/03/ | Appointment | Oncology | Sterling Thomas, | | 2017 | | | MD [address] | | | | | | [place] | | | | | | [address] | | | | | | [phone] | | | | | | | [...] + | [facility] | [address] | [place], [place] | [phone] | | [facility] | | [address] | | | - LABORATORY | | | | + + + + + | [facility] | [address] | [place] | | | [facility] | | [address] | | | - LABORATORY | | [...] + | [facility] | [address] | [place] | [phone] | | [facility] | | [address] | | | - LABORATORY | | | | + + + + + | [facility] | [address] | [place] | | | [facility] | | [address] | | | - LABORATORY | | | | + + + + + Magnesium (06/06/2018605) + +-------+ + + | Component | Value | Ref Range | Performed At | + +-------+ + + | Magnesium | 2.0 | 1.8 - 2.5 mg/dL | [facility] . | | | | | [facility] [...] + | [facility] | [address] | [place] | [phone] | | [facility] | | [address] | | | - LABORATORY | | | | + + + + + | [facility] | [address] | [place] | | | [facility] | | [address] | | | - LABORATORY | | [...] + | [facility] | [address] | [place] | [phone] | | [facility] | | [address] | | | - LABORATORY | | | | + + + + + | [facility] | [address] | [place] | | | [facility] | | [address] | | | - LABORATORY | | [...] [facility] | | | | | [facility] | | | | [...] 11 | 7 - 18 mg/dL | [facility] | | | | | [facility] | | | | | CENTER - | | | | | LABORATORY | + + + + + | Creatinine, | 0.60 | 0.60 - 1.30 mg/dL | [facility]. | | Serum/Plasma | | | [facility] | | | | | CENTER - | | | | | LABORATORY | + + + + + | eGFR if not | >60Comment: GLOMERULAR | >=60 mL/min/1.73m2 | [facility] | | [place] | FILTRATION | | [facility] | | | RATE,ESTIMATED mL/min | | CENTER - | | | /1.14g0Emlk than 60 | | LABORATORY | | [...] + | [facility] | [address] | [place] | [phone] | | [facility] | | [address] | | | - LABORATORY | | | | + + + + + | [facility] | [address] | [place] | | | [facility] | | [address] | | | - LABORATORY | | [...] + | [facility] | [address] | [place], [place] | [phone] | | [facility] | | [address] | | | - LABORATORY | | | | + + + + + | [facility] | [address] | [place], [place] | | | [facility] | | [address] | | | - LABORATORY | | [...] | | First dose on [facility] 06/10/18 at | | PDT | [...] | | First dose on [facility] 06/10/18 at 1045 | | PDT [...]
--- OUTSIDE RECORDS SUMMARY | ~2018-07-16 | XMS | Encounter Summary ---
Demographics + + + | Address | [address] | | | [place] [address] | + + + | Home Phone | | + + + | Preferred Language | Unknown | + + + | Marital Status | Single | + + + | Buddhism Affiliation | Unknown | + + + | Race | Unknown | + + + | Ethnic Group | Unknown | + + + Author + + + | Author | [facility] | | | and Mikeana | + + + | Organization | [facility] | | | and [...] Team Providers + +------+ + | Care Efficiency Analyst Name | Role | Phone | [...] neoplasm of | [address] | | | | | larynx, | [address] | [place], | | | | | unspecified | [place], | [place] [address] | | | | | (HCC) | [place] | Phone: | | | | | Procedures | [address] | [phone] | | | | | [place] IV | Phone: | Fax: | | | | | INFUSION, | [phone] | [phone] | | | | | HYDRATION, | Fax: | | | | | | 31-60 MIN | [phone] | | | | | | [place] IV | | | | | | | INFUSION, | | | | | | | HYDRATION, | | | | | | | EA ADD HOUR | | | | | | | [place] | | | | | | | ONDANSETRON | | | | | | | ORAL [place] | | | | | | | ORAL | | | | | | | DEXAMETHASON | | | | | | | E, .25 MG | | | | | | | [place] | | | | | | | CHEMOTHERAPY | | | | | | | DRUG [place] | | | | | | | CISPLATIN 10 | | | | | | | MG | | | | | | | INJECTION | | | | | | | [place] ADRENALIN | | | | | | | EPINEPHRINE | | | | | | | INJECT, .1 | | | | | | | MG [place] | | | | | | | DIPHENHYDRAM | | | | | | | INE HCL | | | | | | | INJECTIO, 50 | | | | | | | MG [place] | | | | | | | METHYLPREDNI | | | | | | | SOLONE | | | | | | | INJECTION, | | | | | | | 125 MG [place] | | | | | | | ALBUTEROL | | | | | | | COMP CON, 1 | | | | | | | MG [place] | | | | | | | ALBUTEROL | | | | | | | NON-COMP | | | | | | | CON, 1 MG | | | | | | | [place] | | | | | | | INJECTION, | | | | | | | FAMOTIDINE, | | | | | | | 20 MG [place] | | | | | | | NORMAL | | | | | | | SALINE | | | | | | | SOLUTION | | | | | | | INFUS, 500 | | | | | | | ML [place] | | | | | | | NORMAL | | | | | | | SALINE | | | | | | | SOLUTION | | | | | | | INFUS, 250 | | | | | | | ML [place] | | | | | | | STERILE | | | | | | | WATER/SALINE | | | | | | | , 10 ML [place] | | | | | | | CHEMOTHER, | | | | | | | IV PUSH,EA | | | | | | | ADD DRUG [place] | | | | | | | CHEMOTHER, | | | | | | | IV INFUSION, | | | | | | | 1 HR [place] | | | | | | | CHEMOTHER, | | | | | | | IV INFUSION, | | | | | | | EA HR [place] | | | | | | | CHEMOTHER,NO | | | | | | | N-HORMONE | | | | | | | ANTI-NEOPL, | | | | | | | SUB-Q/IM [place] | | | | | | | [...] + | 07/16/ | Hospital | [facility] | Sterling Thomas, | 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 | | | | INFUSION [address] | [place], [place] | ([facility]); Encounter for | | | | [place], | [address] | antineoplastic | | | | [place] [address] | [phone] | chemotherapy | | | | [phone] | | | +--------+ + + + [...] | | | | | [place] [address] | | | | | | [phone] | | | | | | | | +--------+ + + + + | 08/03/ | Appointment | Oncology | Sterling Thomas, | | | 2017 | | | [address] | | | | | | [place] | | | | | | [address] | | | | | | [phone] | | | | | | | [...] ([facility]) Encounter for | results section. | | | | | antineoplastic | | | | | | chemotherapy | | + +--------+ + + + in this encounter Results Creatinine (07/16/2018 1052) + + + + + | Component | Value | Ref Range | Performed At | + + + + + | Creatinine, | 0.93 | 0.60 - 1.30 mg/dL | [facility] | | Serum/Plasma | | | [facility] | | | | | CENTER - | | | | | LABORATORY | + + + + + | eGFR if not | >60Comment: GLOMERULAR | >=60 mL/min/1.73m2 | [facility] | | [place] | FILTRATION | | [facility] | | | RATE,ESTIMATED mL/min | | CENTER - | | | /1.76o2Usfg than 60 | | LABORATORY | | [...] + | [facility] | [address] | [place], [place] | [phone] | | [facility] | | [address] | | | - LABORATORY | | | | + + + + + | [facility] | [address] | [place], [place] | | | [facility] | | [address] | | | - LABORATORY | | [...]
--- OUTSIDE RECORDS SUMMARY | ~2018-07-16 | XMS | Encounter Summary ---
Demographics + + + | Address | [address] | | | [place] [address] | + + + | Home Phone | | + + + | Preferred Language | Unknown | + + + | Marital Status | Single | + + + | Hindu Affiliation | Unknown | + + + | Race | Unknown | + + + | Ethnic Group | Unknown | + + + Author + + + | Author | [facility] | | | and Mikeana | + + + | Organization | [facility] | | | and Mikeana [...] Providers + +------+ + | Care It Compliance Manager Name | Role | Phone | [...] | 07/15/ | Hospital | [facility] | Estefanía Hairston | 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 | MED CTR RADIATION | MD Alana [address] | carcinoma of larynx | | | | ONCOLOGY CLINIC [address] | [place], [place] | ([facility]) (Primary Dx) | | | | [address] [facility] | [address] | | | | | [place] [address] | | | | | | [phone] | | | +--------+ + + + [...] | | | | | | | ([facility]), Encounter for | | | [...] | | | | | | | ([facility]), Status post | | | | | | | emergency | | | | | | | tracheotomy for | | | | | | | assistance in | | | | | | | breathing ([facility]), | | | | | | | Chronic obstructive | | | | | | | pulmonary disease, | | | | | | | unspecified COPD | | | | | | | type ([facility]) | | | | | [...] | | | | | | | ([facility]), Encounter for | | | [...] | | | | | | | ([facility]), Encounter for | | | [...] | | | | | [place] [address] | | | | | | [phone] | | | | | | | | +--------+ + + + + | 08/03/ | Appointment | Oncology | Sterling Thomas, | | | 2017 | | | MD [address] | | | | | | [place] | | | | | | [address] | | | | | | [phone] | | | | | | | [...]
--- OUTSIDE RECORDS SUMMARY | ~2018-07-16 | XMS | Encounter Summary ---
Demographics + + + | Address | [address] | | | [place] [address] | + + + | Home Phone [...] + + + | Author | [facility] | | | and Mikeana | + + + | Organization | [facility] | | | and [...] Team Providers + +------+ + | Care Multimedia Manager Name | Role | Phone | + +------+ + | Yeyo Anderson DO | PCP | | + +------+ + Encounter Details +--------+ + + + + | Date | Type | Department | Care Team | Description | +--------+ + + + + | 07/13/ | Hospital | [facility] | Sterling Thomas, | 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 | MD [address] | carcinoma of larynx | | | | [facility] [address] | [place] | (HCC) (Primary Dx) | | | | [address] | [address] | | | | | [place] [address] | [phone] | | | | | [phone] | | | +--------+ + + + [...] | | ([facility]), Encounter for | | | | | [...] | | ([facility]), Encounter for | | | | | [...] | | ([facility]), Encounter for | | | | | | | antineoplastic | | | | | | | chemotherapy | | | | | | + + + +---------+ + + as of this encounter Progress Notes Sterling Thomas MD - 07/13/2018 0846 PDTFormatting of this note may be different from the original. Hematology-Oncology Progress Note [facility] Pt. Name/Age/: Crystal Sadler 62 y.o. 1955 CSN: [id number] Date of service: 07/13/2018 Provider: Sterling Thomas [...] this chart may have been created with [employer] voice recognition software. Occasi onal wrong-word or [...] | | | | | [place] [address] | | | | | | [phone] | | | | | | | | +--------+ + + + + | 08/03/ | Appointment | Oncology | Sterling Thomas, | | | 2017 | | | MD [address] | | | | | | [place] | | | | | | [address] | | | | | | [phone] | | | | | | | [...] the | | | | | ([facility]) | results section. | + +--------+ + + + | MAGNESIUM | STAT | 07/13/2018 | Squamous cell | Results for this | | | | 0824 PDT | carcinoma of larynx | procedure are in the | | | | | ([facility]) | results section. | + +--------+ + + + | COMPREHENSIVE | STAT | 07/13/2018 | Squamous cell | Results for this | | METABOLIC PANEL | | 0824 PDT | carcinoma of larynx | procedure are in the | | | | | ([facility]) | results section. | + +--------+ + + + in this encounter Results Magnesium (07/13/2018823) + +-------+ + + | Component | Value | Ref Range | Performed At | + +-------+ + + | Magnesium | 2.0 | 1.8 - 2.5 mg/dL | [facility] | | | | | [facility] | | | | | CENTER [...] [address] | [place] | [phone] | | [facility] | | [address] | | | - LABORATORY | | | | + + + + + | [facility] | [address] | [place] | | | [facility] | | [address] | | | - LABORATORY | | | | + + + + + CBC with Differential (07/13/2018823) + + + + + | Component | Value | Ref Range | Performed At | + + + + + | WBC | 7.6 | 4.0 - 11.0 K/uL | [facility] | | | | | [facility] | | | | | CENTER [...] [address] | [place] | [phone] | | [facility] | | [address] | | | - LABORATORY | | | | + + + + + | [facility] | [address] | [place] | | | [facility] | | [address] | | | - LABORATORY | | | | + + + + + Comprehensive Metabolic Panel (07/13/2018823) + + + + + | Component | Value | Ref Range | Performed At | + + + + + | NA | 138 | 136 - 149 mmol/L | [facility] | | | | | [facility] | | | | | CENTER [...] [facility] | | | | | [facility] | | | | [...] ST. | | Serum/Plasma | | | [facility] | | | | | CENTER - | | | | | LABORATORY | + + + + + | eGFR if not | >60Comment: GLOMERULAR | >=60 mL/min/1.73m2 | [facility] | | [place] | FILTRATION | | [facility] | | | RATE,ESTIMATED mL/min | | CENTER - | | | /1.76i8Wsne than 60 | | LABORATORY | | [...] | | | | | [facility] | | | | | CENTER - | | | | | LABORATORY | + + + + + | ALBUMIN | 3.7 | 3.2 - 5.0 g/dL | [facility] | | | | | [facility] | | | | | CENTER [...] | | appended report. These | | [facility] | | | results have been | | CENTER - | | | appended to a previously | | LABORATORY | | | preliminary verified | | | | | report. | | | + + + + + | GLOBULIN | 3.7 | 2.1 - 3.8 g/dL | [facility] | | | | | [facility] | | | | | CENTER - | | | | | LABORATORY | + + + + + | Albumin/Globulin | 1.0 | 0.8 - 2.0 | [facility] | | ratio | | | [facility] | | | | | CENTER - | | | | | LABORATORY | + + + + + | LUZ/NADEEM | 19.5 | | [facility] | | | | | [facility] | | | | | CENTER [...] [address] | [place] | [phone] | | [facility] | | [address] | | | - LABORATORY | | | | + + + + + | [facility] 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
--- OUTSIDE RECORDS SUMMARY | ~2018-07-16 | XMS | Clinical Summary ---
Demographics + + + | Address | [address] | | | [place] [address] | + + + | Home Phone [...] | Author | [facility] | | | and Mikeana | + + + | Organization | [facility] | | [...] Team Providers + +------+ + | Care Haul Truck Driver Name | Role | Phone | + [...] | | | | | ([facility]), Status post | | | | | | | | emergency | | | | | | | | tracheotomy for | | | | | | | | assistance in | | | | | | | | breathing ([facility]), | | | | | | | | Chronic obstructive | | | | | | | | pulmonary disease, | | | | | | | | unspecified COPD | | | | | | | | type ([facility]) | | | | | [...] | | | | | ([facility]), Encounter for | | | [...] | | | | | ([facility]), Encounter for | | | [...] | | | | | ([facility]); Encounter for | | | | | | antineoplastic | | | | | | chemotherapy | +--------+ + + + + | 07/15/ | Hospital | | Estefanía Hairston | 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, 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 | | | | | | ([facility]) (Primary Dx) | +--------+ + + + + | 07/15/ | Hospital | | Sterling Thomas, | 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 | | | | | | ([facility]); Encounter for | | | | | | antineoplastic | | | | | | chemotherapy | +--------+ + + + + | 07/14/ | Hospital | | Sterling Thomas | Squamous cell | 2017 | 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 | | | | | | ([facility]); Encounter for | | | | | [...] | | | | | ([facility]) | +--------+ + + + + | 07/01/ | Hospital | | Estefanía Hairston | 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 | | | | | | ([facility]) | +--------+ + + + + | 06/30/ | Hospital | | Sterling Thomas | 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 | | | | | | ([facility]) (Primary Dx) | +--------+ + [...] | | MD | management ([facility]) | | | | | | (Primary Dx); | | 06/10/ | | | | Bilateral foot pain; | | 2017 | | | | Right leg pain; | | | | | | Laryngeal carcinoma | | | | | | ([facility]); Status post | | | | | | emergency | | | | | | tracheotomy for | | | | | | assistance in | | | | | | breathing ([facility]); | | | | | | Chronic obstructive | | | | | | pulmonary disease, | | | | | | unspecified COPD | | | | | | type ([facility]); Smoker; | | | | | | Squamous cell | | | | | | carcinoma of larynx | | | | | | ([facility]) | +--------+ + + + + +---+ [...] | | | MRN: | | | [id number] | | | Date of | | | Admission: | | | 06/01/2018 | | | Date of | | | Discharge: | | | 06/10/18 | | | Admitting | | | Physician: | | | Ac M | | | Oriental, | | | MD | | | [...] | | : Dr. | | | Oriental of | | | ENT/speech | | [...] | | transferred | | | to [facility] | | | for acute | | | care- | | | Admitted | | | for | | | management | | | of new | | | trach- Dr. | | | Oriental | | | evaluated | | | [...] | | with Dr. | | | Oriental S | | | moker/COPD: | | [...] | | [place] | | | [id number] | | | [phone] | | | Discharge | | | [...] | | | | | [place] [address] | | | | | | [phone] | | | | | | | | +--------+ + + + + | 08/03/ | Appointment | | Sterling Thomas, | | | 2017 | | | MD [address] | | | | | | [place] | | | | | | [address] | | | | | | [phone] | | | | | | | [...] | | | | | ([facility]) Encounter for | results section. | | | | | antineoplastic | | | | | | chemotherapy | | + +--------+ + + + | MAGNESIUM | STAT | 07/13/2018 | Squamous cell | Results for this | | | | 0824 PDT | carcinoma of larynx | procedure are in the | | | | | ([facility]) | results section. | + +--------+ + + + | CBC WITH | STAT | 07/13/2018 | Squamous cell | Results for this | | DIFFERENTIAL | | 0824 PDT | carcinoma of larynx | procedure are in the | | | | | ([facility]) | results section. | + +--------+ + + + | COMPREHENSIVE | STAT | 07/13/2018 | Squamous cell | Results for this | | METABOLIC PANEL | | 0824 PDT | carcinoma of larynx | procedure are in the | | | | | ([facility]) | results section. | + +--------+ + + + | PET CT SKULL BASE TO | Routin | 07/01/2018 | Squamous cell | Results for this | | MID THIGH | e | 1323 PDT | carcinoma of larynx | procedure are in the | | | | | ([facility]) | results section. | + +--------+ + + + | CT TREATMENT PLAN | Routin | 07/01/2018 | Squamous cell | Results for this | | COMPLEX | e | 0954 PDT | carcinoma of larynx | procedure are in the | | | | | ([facility]) | results section. | + [...] 0.93 | 0.60 - 1.30 mg/dL | [facility] | | Serum/Plasma | | | [facility] | | | | | CENTER - | | | | | LABORATORY | + + + + + | eGFR if not | >60Comment: GLOMERULAR | >=60 mL/min/1.73m2 | [facility] | | [place] | FILTRATION | | [facility] | | | RATE,ESTIMATED mL/min | | CENTER - | | | /1.80b7Pwov than 60 | | LABORATORY | | [...] + | [facility] | [address] | [place] | [phone] | | [facility] | | [address] | | | - LABORATORY | | | | + + + + + | [facility] | [address] | [place] | | | [facility] | | [address] | | | - LABORATORY | | [...] [address] | [place] | [phone] | | [facility] | | [address] | | | - LABORATORY | | | | + + + + + | [facility] | [address] | [place] | | | [facility] | | [address] | | | - LABORATORY | | [...] + | [facility] | [address] | [place] | [phone] | | [facility] | | [address] | | | - LABORATORY | | | | + + + + + | [facility] | [address] | [place] | | | [facility] | | [address] | | | - LABORATORY | | [...] | >60Comment: GLOMERULAR | >=60 mL/min/1.73m2 | [facility] | | [place] | FILTRATION | | [facility] | | | RATE,ESTIMATED mL/min | | CENTER - | | | /1.75p4Qvko than 60 | | LABORATORY | | [...] 9.1 | 8.3 - 10.5 mg/dL | [facility] | | | | | [facility] | | | | | CENTER - | | | | | LABORATORY | + + + + + | ALBUMIN | 3.7 | 3.2 - 5.0 g/dL | [facility] | | | | | [facility] [...] | | appended report. These | | [facility] | | | results have been [...] [address] | [place] | [phone] | | [facility] | | [address] | | | - LABORATORY | | | | + + + + + | [facility] | [address] | [place] | | | [facility] | | [address] | | | - LABORATORY | | [...] [facility] | | | | | [facility] [...] + | [facility] | [address] | [place] | [phone] | | [facility] | | [address] | | | - LABORATORY | | | | + + + + + | [facility] | [address] | [place] | | | [facility] | | [address] | | | - LABORATORY | | | | + + + + + Phosphorus (06/06/2018605) + +-------+ + + | Component | Value | Ref Range | Performed At | + +-------+ + + | Phosphorus | 3.5 | 2.5 - 4.6 mg/dL | [facility] | | | | | [facility] [...] + | [facility] | [address] | [place] | [phone] | | [facility] | | [address] | | | - LABORATORY | | | | + + + + + | [facility] | [address] | [place], [place] | | | [facility] | | [address] | | | - LABORATORY | | | | + + + + + Calcium, Ionized (06/06/2018605) + + + + + | Component | Value | Ref Range | Performed At | + + + + + | Ionized Calcium | 5.68 (H) | 4.48 - 5.28 mg/dL | [facility] | | | | | [facility] [...] + | [facility] | [address] | [place] | [phone] | | [facility] | | [address] | | | - LABORATORY | | | | + + + + + | [facility] | [address] | [place] | | | [facility] | | [address] | | | - LABORATORY | | [...] 11 | 7 - 18 mg/dL | [facility] | | | | | [facility] | | | | | CENTER - | | | | | LABORATORY | + + + + + | Creatinine, | 0.60 | 0.60 - 1.30 mg/dL | [facility] | | Serum/Plasma | | | [facility] | | | | | CENTER - | | | | | LABORATORY | + + + + + | eGFR if not | >60Comment: GLOMERULAR | >=60 mL/min/1.73m2 | [facility] | | [place] | FILTRATION | | [facility] | | | RATE,ESTIMATED mL/min | | CENTER - | | | /1.51c3Wpvy than 60 | | LABORATORY | | [...] + | [facility] | [address] | [place] | [phone] | | [facility] | | [address] | | | - LABORATORY | | | | + + + + + | [facility] | [address] | [place] | | | [facility] | | [address] | | | - LABORATORY | | | | + + + + + Culture, MRSA (06/01/20181658) + + + + + | Component | Value | Ref Range | Performed At | + + + + + | Culture | Negative for MRSA by | | [facility] | | | chromogenic agar method | | [facility] | | [...] | + + + + + | [facility] | [address] | [place] | [phone] | | [facility] | | [address] | | | - LABORATORY | | | | + + + + + | [facility] | [address] | [place] | | | [facility] | | [address] | | | - LABORATORY | | [...] +--------+ +---------+ | MEDICARE | MEDICA | [id number] | Medica | [phone] | | [...] | + +--------+ +--------+ + + | CRSYTAL SADLER | Person | Self [birth year] Home: | [address] [place] [address] | | LIDIA | rohit/Burke | | 1955 | [phone] | [place] [address] | | | emerita | | | [phone] | | + +--------+ +--------+ + +
--- OUTSIDE RECORDS SUMMARY | ~2018-07-16 | XMS | Encounter Summary ---
Demographics + + + | Address | [address] | | | [place] [address] | + + + | Home Phone | | + + + | Preferred Language | Unknown | + + + | Marital Status | Single | + + + | Denominational Affiliation | Unknown | + + + | Race | Unknown | + + + | Ethnic Group | Unknown | + + + Author + + + | Author | [facility] | | | and [place] | + + + | Organization | [facility] | | | and Mikeana [...] Team Providers + +------+ + | Care Relay Man Name | Role | Phone | + +------+ + PCP | Unavailable | + +------+ + Encounter Details +--------+ + + + + | Date | Type | Department | Care Team | Description | +--------+ + + + + | 06/25/ | Hospital | [facility] | Estefanía Hairston | | | 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 | MED CTR RADIATION | MD Alana [address] | | | | | ONCOLOGY [address] [place], [place] | | | | | [place], | [address] | | | | | [place] [address] | | | | | | [phone] | | | +--------+ + + + [...] 0 | 06/10/20 | | | [facility] | Does not apply route | [...] | | | | | [place] [address] | | | | | | [phone] | | | | | | | | +--------+ + + + + | 08/03/ | Appointment | Oncology | Sterling Thomas, | | | 2017 | | | MD [address] | | | | | | [place] | | | | | | [address] | | | | | | [phone] | | | | | | | [...]
--- OUTSIDE RECORDS SUMMARY | ~2018-07-16 | XMS | Encounter Summary ---
Demographics + + + | Address | [address] | | | [place] [address] | + + + | Home Phone [...] | [facility] | | | and [place] | + + + | Organization | [facility] [...] + +------+ + | Care Insurance Claims Adjuster Name | Role | Phone | + [...] | carcinoma of | [address] | [address] [place] | | | | | larynx | [place], | [place], | | | | | (HCC) | [place] | [place] [address] | | | | | | [address] | Phone: | | | | | | Phone: | [phone] | | | | | | [phone] | Fax: | | | | | | Fax: | [phone] | | | | | | [phone] | | +--------+ + + + + + Encounter Details +--------+ + + + + | Date | Type | Department | Care Team | Description | +--------+ + + + + | 07/13/ | Hospital | [facility] | Sterling Thomas, | 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 | MED CTR NUTRITION | MD [address] | carcinoma of larynx | | | | SERVICES [address] | [place], [place] | ([facility]) | | | | [place], | [address] | | | | | [place] [address] | [phone] | | | | | [phone] | | | | | | | [...] | | | ([facility]), Encounter for | | | [...] | | | ([facility]), Encounter for | | | [...] | | | ([facility]), Encounter for | | | [...] 1.5") BMI 26.68 Estimated needs (wt. 65kg) [id number] kcals/day 65-78 gm pro/day Medications: reviewed ASSESSMENT/PLAN: [...] | | | | | [place] [address] | | | | | | [phone] | | | | | | | | +--------+ + + + + | 08/03/ | Appointment | Oncology | Sterling Thomas, | | | 2017 | | | MD [address] | | | | | | [place] | | | | | | [address] | | | | | | [phone] | | | | | | | [...]
--- OUTSIDE RECORDS SUMMARY | ~2018-07-16 | XMS | Encounter Summary ---
Demographics + + + | Address | [address] | | | [place] [address] | + + + | Home Phone [...] + | Author | [facility] | | | and [place] | + + + | Organization | [facility] | | | and [...] Team Providers + +------+ + | Care Spinner Operator Name | Role | Phone | + +------+ + | Yeyo Anderson DO | PCP | | + +------+ + Encounter Details +--------+ + + + + | Date | Type | Department | Care Team | Description | +--------+ + + + + | 06/10/ | [facility] | [facility] | Lida Garcia | | | 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 | MED CTR ACUTE | D, PT [address] | | | | | PHYSICAL THERAPY | [facility] [place] | | | | | [address] [place] | [address] | | | | | [place] [address] | | | | | | [phone] | | | +--------+ + + + [...] | | | | | [place] [address] | | | | | | [phone] | | | | | | | | +--------+ + + + + | 08/03/ | Appointment | Oncology | Sterling Thomas, | | | 2017 | | | [address] | | | | | | [place] | | | | | | [address] | | | | | | [phone] | | | | | | | [...]
--- OUTSIDE RECORDS SUMMARY | ~2018-07-16 | XMS | Encounter Summary ---
Demographics + + + | Address | [address] | | | [place] [address] | + + + | Home Phone [...] | [facility] | | | and [place] | + + + | Organization | [facility] | | | and [...] Team Providers + +------+ + | Care Siderographist Name | Role | Phone | + +------+ + | Yeyo Anderson DO | PCP | | + +------+ + Encounter Details +--------+ + + + + | Date | Type | Department | Care Team | Description | +--------+ + + + + | 06/10/ | [facility] | [facility] | Lida Garcia | | | 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 | MED CTR ACUTE | D, PT [address] | | | | | PHYSICAL THERAPY | [address] [place] | | | | | [address] [place] | [address] | | | | | [place] [address] | | | | | | [phone] | | | +--------+ + + + [...] | | | | | [place] [address] | | | | | | [phone] | | | | | | | | +--------+ + + + + | 08/03/ | Appointment | Oncology | Sterling Thomas, | | | 2017 | | | [address] | | | | | | [place] | | | | | | [address] | | | | | | [phone] | | | | | | | [...]
--- OUTSIDE RECORDS SUMMARY | ~2018-07-16 | XMS | Encounter Summary ---
Demographics + + + | Address | [address] | | | [place] [address] | + + + | Home Phone [...] | Author | [facility] | | | and [place] | + + + | Organization | [facility] | | | and [place] [...] Team Providers + +------+ + | Care Liquor Maker Name | Role | Phone | [...] | | | | (HCC) | [place] [address] | [place], [place] | | | | | | Phone: | [address] Phone: | | | | | | [phone] | [phone] | | | | | | Fax: | Fax: | | | | | | [phone] | [phone] | + + + + + + + Encounter Details +--------+ + + + + | Date | Type | Department | Care Team | Description | +--------+ + + + + | 06/29/ | Hospital | [facility] | Aneudy, | No Show | | 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 | MED CTR MEDICAL | MD [address]ero [address] | | | | | ONCOLOGY CLINIC [address] [place] | | | | | [address] [place] | [place] [address] | | | | | [place] [address] | [phone] | | | | | [phone] | | | +--------+ + + + [...] | | | | | [place] [address] | | | | | | [phone] | | | | | | | | +--------+ + + + + | 08/03/ | Appointment | Oncology | Sterling Thomas, | | | 2017 | | | MD [address] | | | | | | [place] | | | | | | [address] | | | | | | [phone] | | | | | | | [...]
[~2018-07-16 23:30] MED LIST changes: +HYDROCODONE-IB1 EACH PO; +LEVAQUIN500 MG PO
--- OUTSIDE RECORDS SUMMARY | 2018-07-16 23:34 | XMS ---
PreManage Notification: RAUDEL VASQUEZ Security Director Bioinformatics Events No recent Security Events currently on file CRITERIA MET - [facility] - Has Care Guidelines - [facility] - 2 Visits in 30 Days CARE PROVIDERS SHELLIE MÁRQUEZ Internal Medicine 06/18/2018-Current PHONE: [phone] FARHAN ACEVEDO Internal Medicine 07/12/2018-Current Axcient PHONE: [phone] Guidelines Source: [facility] Guidelines Date: 06/17/2018 Care Coordination: PATIENT IS UNDER SERVICES AT [facility].\T\nbsp; IF PATIENT IS SEEN IN THE ED, PLEASE NOTIFY THEM AT [phone].\T\nbsp; IF AFTER HOURS OR ON WEEKENDS PLEASE CALL SWITCHBOARD AT [phone] AND HAVE ON-CALL RN NOTIFIED. Care History Medical/Surgical 06/18/2018 [facility] - Patient is currently established with [facility]. If patient is seen in the ED during business hours. Please contact CHWs at [facility]. Care Recommendation: This patient has had 5 [...] providing care. E.D. VISIT COUNT (12 MO.) [address] [facility] [address] [facility] TOTAL 4 NOTE: Visits indicate total known visits. 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 - Allergy status to narcotic agent status - Type 2 diabetes mellitus without complications - Malignant neoplasm of larynx, unspecified - Bronchitis, not specified as acute or chronic - Nicotine dependence, unspecified, uncomplicated - Other chest pain 06/16/2018 21:54 [facility] TYPE: Emergency COMPLAINT: - DIFFICULTY BREATHING 03/22/2018 05:45 [facility] TYPE: Emergency COMPLAINT: - COUGH,HAS NO VOICE DIAGNOSES: - Cough - Allergy status to narcotic agent status - Dysphagia, unspecified - dedicated 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 driver (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 drugs - Urinary tract infection, site not specified - Nicotine dependence, unspecified, uncomplicated - DETENTION (CURRENT) USE OF ORAL HYPOGLYCEMIC DRUGS INPATIENT VISIT TRACKING (12 MO.) [facility] DIAGNOSES: - Encounter for attention to tracheostomy - New trach - Nicotine dependence, unspecified, uncomplicated - Pain in right leg - Pain in right foot - Pain in left foot - Chronic obstructive pulmonary disease, unspecified - Malignant neoplasm of larynx, unspecified - Tracheostomy status [email or web address]
== END 2018-07-17 00:40 | disposition home or self-care (01) ==
LOC: ED 23:30
DX: J95.03 Malfunction of tracheostomy stoma (principal); E11.9 Type 2 diabetes mellitus without complications; F17.200 Nicotine dependence, unspecified, uncomplicated; Z88.5 Allergy status to narcotic agent; Z79.899 Other long term (current) drug therapy
CPT/HCPCS: 71045; 99284

== ENCOUNTER 2018-08-25 19:45 | Emergency (ER) | payer MEDICARE, OTHER ==
[~2018-08-25] VITALS: Ht 154.9 cm; Wt 66.2 kg
--- OUTSIDE RECORDS SUMMARY | ~2018-08-25 | XMS | Encounter Summary ---
Demographics + + + | Address | [address] | | | [place] [address] | + + + | Home Phone | | + + + | Preferred Language | Unknown | + + + | Marital Status | Single | + + + | Orthodoxy Affiliation | Unknown | + + + | Race | Unknown | + + + | Ethnic Group | Unknown | + + + Author + + + | Author | [facility] | | | and Mikeana | + + + | Organization | [facility] | | | and [...] Team Providers + +------+ + | Care Supervisor Liquefaction Name | Role | Phone | + [...] neoplasm of | [address] | | | | | larynx, | [address] | [place], | | | | | unspecified | [place], | [place] [address] | | | | | (HCC) | [place] | Phone: | | | | | Procedures | [phone] | [phone] | | | | | [place] IV | Phone: | Fax: | | | | | INFUSION, | [phone] | [phone] | | | | | HYDRATION, | Fax: | | | | | | 31-60 MIN | [phone] | | | | | | [place] IV | | | | | | | INFUSION, | | | | | | | HYDRATION, | | | | | | | EA ADD HOUR | | | | | | | KS | | | | | | | ONDANSETRON | | | | | | | ORAL KS | | | | | | | ORAL | | | | | | | DEXAMETHASON | | | | | | | E, .25 MG | | | | | | | KS | | | | | | | CHEMOTHERAPY | | | | | | | DRUG KS | | | | | | | CISPLATIN 10 | | | | | | | MG | | | | | | | INJECTION | | | | | | | KS ADRENALIN | | | | | | | EPINEPHRINE | | | | | | | INJECT, .1 | | | | | | | MG KS | | | | | | | DIPHENHYDRAM | | | | | | | INE HCL | | | | | | | INJECTIO, 50 | | | | | | | MG KS | | | | | | | METHYLPREDNI | | | | | | | SOLONE | | | | | | | INJECTION, | | | | | | | 125 MG KS | | | | | | | ALBUTEROL | | | | | | | COMP CON, 1 | | | | | | | MG KS | | | | | | | ALBUTEROL | | | | | | | NON-COMP | | | | | | | CON, 1 MG | | | | | | | KS | | | | | | | INJECTION, | | | | | | | FAMOTIDINE, | | | | | | | 20 MG KS | | | | | | | NORMAL | | | | | | | SALINE | | | | | | | SOLUTION | | | | | | | INFUS, 500 | | | | | | | ML KS | | | | | | | NORMAL | | | | | | | SALINE | | | | | | | SOLUTION | | | | | | | INFUS, 250 | | | | | | | ML KS | | | | | | | STERILE | | | | | | | WATER/SALINE | | | | | | | , 10 ML KS | | | | | | | CHEMOTHER, | | | | | | | IV PUSH,EA | | | | | | | ADD DRUG KS | | | | | | | CHEMOTHER, | | | | | | | IV INFUSION, | | | | | | | 1 HR KS | | | | | | | CHEMOTHER, | | | | | | | IV INFUSION, | | | | | | | EA HR KS | | | | | | | CHEMOTHER,NO | | | | | | | N-HORMONE | | | | | | | ANTI-NEOPL, | | | | | | | SUB-Q/IM KS | | | | | | | [...] + + | 08/11/ | Hospital | [facility] | Sterling Thomas, | 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 | | | | INFUSION [address] | [place], [place] | ([facility]); Encounter for | | | | [place], | [address] | antineoplastic | | | | [place] [address] | [phone] | chemotherapy | | | | [phone] | | | +--------+ + + + [...] + + + | Blood Pressure | 153/83 | 08/11/20181152 PDT | + + + + | Pulse | 99 | 08/11/20181152 PDT | + + + + | Temperature | 36.6 C (97.8 F) | 08/11/20181152 PDT | + + + + | Respiratory Rate | 18 | 08/11/20181152 PDT | + + + + | Oxygen Saturation | 99% | 08/11/20181152 PDT | + + + + | Inhaled Oxygen | - | - | | Concentration | | | + + + + | Weight | - | - | + + + + | Height | - | - | + + + + | Body Mass Index | - | - | + + + + in this encounter Medications at Time of Discharge + + + +---------+ + + | Medication | Sig. | Disp. | Refills | Start | End Date | | | | | | Date | | + + + +---------+ + + | albuterol 2.5 mg/3 | Take 3 mLs by | 60 vial | 0 | 10/10/20 | | | mL nebulizer | nebulization every 4 | | | 18 | | | solutionIndications: | hours as needed for | | | | | | Laryngeal cancer | Wheezing or | | | | | | (HCC) | Shortness of Breath. | | | | | + + + +---------+ + + | Cholecalciferol | Take by mouth. | | | | | | (VITAMIN D3 PO) | | | | | | + + + +---------+ + + | diazePAM (VALIUM) | Take 1 tablet by | | | 06/15/20 | | | 5 mg tablet | mouth nightly as | | | 18 | | | | needed. | | | | | + + + +---------+ + + | | Take 5 mLs by mouth | 600 mL | 3 | 07/23/20 | | | diphenhydrAMINE-lido | every 4 hours as | | | 18 | | | shira-aluminum & | needed for Pain (Can | | | | | | magnesium | swish and swallow, | | | | | | hydroxide-simethicon | or swish and spit). | | | | | | e (MAGIC | (RECIPE = 1:1:1 | | | | | | MOUTHWASH)Indication | mixture of Maalox, | | | | | | s: Mucositis due to | diphenhydrAMINE, | | | | | | radiation therapy | viscous lidocaine) | | | | | + + + +---------+ + + | Humidifiers (COOL | 1 applicator by Does | 1 each | 0 | 06/10/20 | | | MIST HUMIDIFIER 1 | not apply route as | | | 18 | | | YUMIKO) MISC | needed. | | | | | + + + +---------+ + + | | Take 1-2 tablets by | 30 | 0 | 06/03/20 | | | HYDROcodone-acetamin | mouth every 4 hours | tablet | | 18 | | | ophen (NORCO) 5-325 | as needed. | | | | | | mg per tablet | | | | | | + + + +---------+ + + | Misc. Devices | 1 Application by | 1 each | 0 | 06/10/20 | | | (COMMODE BEDSIDE) | Does not apply route | | | 18 | | | MISCIndications: | as needed. | | | | | | Laryngeal carcinoma | | | | | | | ([facility]), Status post | | | | | | | emergency | | | | | | | tracheotomy for | | | | | | | assistance in | | | | | | | breathing ([facility]), | | | | | | | Chronic obstructive | | | | | | | pulmonary disease, | | | | | | | unspecified COPD | | | | | | | type ([facility]) | | | | | | + + + +---------+ + + | OLANZapine | Take 1 tablet by | 30 | 0 | 07/20/20 | | | (ZYPREXA) 5 mg | mouth nightly. | tablet | | 18 | | | tabletIndications: | starting Day 1 of | | | | | | Squamous cell | chemotherapy. | | | | | | carcinoma of larynx | | | | | | | (HCC), Encounter for | | | | | | | antineoplastic | | | | | | | chemotherapy | | | | | | + + + +---------+ + + | ondansetron | Take 1 tablet by | 30 | 1 | 08/03/20 | | | (ZOFRAN) 8 MG tablet | mouth every 8 hours | tablet | | 18 | | | | as needed for | | | | | | | Nausea. May [...] | nausea | | | | | + + + +---------+ + + as of this encounter Progress Notes Candida Smart RN - 08/11/2018 1358 PDTPatient finished with fluids today, states she feels well. We have talked in length today about the upcoming class that focuses on looking and feeling better during treatment. She has signed up for this. She has follow up appointme nts for infusion next week, continues XRT this week. Discharged to radiation in stable condi tion without questions. Candida Smart RN - 08/11/2018 3795 PDTEnergy level: Fair to g ood Fever or chills: none Appetite: she is eating as she can, lately has been been softer foods and a homemade cheese cake Nausea and/or vomiting: nausea intermittently, none in past 20 hours Bowels: slightly constipated but she is keeping on top of it. She states she prefers to be this way instead of having diarrhea. She knows that if after a few days she will need to valarie e laxative to produce bowel movement. Numbness and tingling: Sometimes in toes and feet, thinks this started before treatment. Bleeding or bruising: none Abhinav: 80 Nurses notes: here for RN check today with fluids. She is well today, very talkative. She i s very concerned about how she looks and states she feels she is looking old. in this encoun ter Plan of Treatment +--------+ + + + + | Date | Type | Specialty | Care Team | Description | +--------+ + + + + | 08/26/ | Appointment | Radiation Oncology | Estefanía Hairston | | | 2018 | | | MD [address] | | | | | | [place], [place] | | | | | | [phone] | | | | | | | | +--------+ + + + + | 09/15/ | Appointment | Oncology | WilliamSterling, | | | 2017 | | | MD [address] | | | | | | [place] | | | | | | [address] | | | | | | [phone] | | | | | | | | +--------+ + + + + | 09/15/ | Appointment | Nutrition | Joselin Falcon, | | | 2017 | | | RDN | | +--------+ + + + + as of this encounter Visit Diagnoses + + | Diagnosis | + + | Squamous cell carcinoma of larynx (HCC) | + + | Malignant neoplasm of larynx, unspecified site | + + | Encounter for antineoplastic chemotherapy | + + | Encounter for antineoplastic chemotherapy | + + Administered Medications + +---------+ +------+-------+------+ | Medication Order | MAR | Action | Dose | Rate | Site | | | Action | Date | | | | + +---------+ +------+-------+------+ | sodium chloride 0.9% (NS) | New Bag | 08/11/20 | | 680 | | | infusion at 680 mL/hr, | | 18 11:55 | | mL/hr | | | Intravenous, ONCE, 08/11/18 | | PDT | | | | | at 1202, For 1 dose, 1000 mL | | | | | | + +---------+ +------+-------+------+ +---+---+ | | | +---+---+ in this encounter"
--- OUTSIDE RECORDS SUMMARY | ~2018-08-25 | XMS | Encounter Summary ---
Demographics + + + | Address | [address] | | | [place] [address] | + + + | Home Phone | | + + + | Preferred Language | Unknown | + + + | Marital Status | Single | + + + | Sabianism Affiliation | Unknown | + + + | Race | Unknown | + + + | Ethnic Group | Unknown | + + + Author + + + | Author | [facility] | | | and [place]ana | + + + | Organization | [facility] | | | and Mikeana [...] Team Providers + +------+ + | Care Refinery Superintendent Name | Role | Phone | + +------+ + | Yeyo Anderson DO | PCP | | + +------+ + Encounter Details +--------+ + + + + | Date | Type | Department | Care Team | Description | +--------+ + + + + | 07/13/ | Hospital | [facility] | Sterling Thomas, | 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 | MD Jack [address] | carcinoma of larynx | | | | [facility] [address] | [place] | (HCC) (Primary Dx) | | | | [address] | [address] | | | | | [place] [address] | [phone] | | | | | [phone] | | | +--------+ + + + [...] + + + | Blood Pressure | 110/64 | 07/13/2018906 PDT | + + + + | Pulse | 79 | 07/13/2018906 PDT | + + + + | Temperature | 36.7 C (98 F) | 07/13/2018906 PDT | + + + + | Respiratory Rate | 20 | 07/13/2018906 PDT | + + + + | Oxygen Saturation | 96% | 07/13/2018906 PDT | + + + + | Inhaled Oxygen | - | - | | Concentration | | | + + + + | Weight | 65.1 kg (143 lb 8.3 | 07/13/2018906 PDT | | | oz) | | + + + + | Height | - | - | + + + + | Body Mass Index | 26.68 | 07/13/2018906 PDT | + + + + in this [...] | | | 18 | | | GALLON) MISC | needed. | | | | [...] | | | | | | | ([facility]), Status post | | | | | | | emergency | | | | | | | tracheotomy for | | | | | | | assistance in | | | | | | | breathing ([facility]), | | | | | | | Chronic obstructive | | | | | | | pulmonary disease, | | | | | | | unspecified COPD | | | | | | | type ([facility]) | | | | | | + + + +---------+ + + | albuterol 2.5 mg/3 | Take 3 mLs by | 60 vial | 0 | 06/10/20 | | | mL nebulizer | nebulization every 4 | | | 18 | 8 | | solution | hours as needed for | | | | | | | Wheezing or | | | | | | | Shortness of Breath. | | | | | + + + +---------+ + + | levoFLOXacin | Take 1 tablet by | | | 07/10/20 | | | (LEVAQUIN) 500 mg | mouth Daily. | | | 18 | 8 | | tablet | | | | | | + + + +---------+ + + | LORazepam (ATIVAN) | Take 1 tablet by | 20 | 5 | 07/13/20 | | | 1 mg | mouth every 6 hours | tablet | | 18 | 8 | | tabletIndications: | as needed | | | | | | Squamous cell | (Nausea/Vomiting). | | | | | | carcinoma of larynx | | | | | | | (HCC), Encounter for | | | | | | | antineoplastic | | | | | | | chemotherapy | | | | | | + + + +---------+ + + | OLANZapine | Take 2 tablets by | 30 | 0 | 07/13/20 | | | (ZYPREXA) 5 mg | mouth nightly for 4 | tablet | | 18 | 8 | | tabletIndications: | days. starting Day 1 | | | | | | Squamous cell | of chemotherapy. | | | | | | carcinoma of larynx | | | | | | | (HCC), Encounter for | | | | | | | antineoplastic | | | | | | | chemotherapy | | | | | | + + + +---------+ + + | ondansetron | Take 1 tablet by | 30 | 3 | 07/13/20 | | | (ZOFRAN) 8 MG | mouth every 8 hours | tablet | | 18 | 8 | | tabletIndications: | as needed | | | | | | Squamous cell | (Nausea/Vomiting). | | | | | | carcinoma of larynx | | | | | | | (HCC), Encounter for | | | | | | | antineoplastic | | | | | | | chemotherapy | | | | | | + + + +---------+ + + as of this encounter Progress Notes Sterling Thomas MD - 07/13/2018 0846 PDTFormatting of this note may be different from the original. Hematology-Oncology Progress Note [facility] Pt. Name/Age/: Crystal Sadler 62 y.o. 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 Assessment and plan: Reviewed again with the patient and family the role of chemotherapy along with radiation, p rimarily as a radiosensitizer. Schedule of treatment was reviewed, also potential side effe cts including but not limited to nausea and vomiting, neuropathy as well as the potential fo r nephropathy. Emphasized the extreme importance of aggressive hydration. Both verbal and written consent obtained. 1. Proceed with cisplatin 100 mg/m with full supportive therapy including hydration over the next couple of days. 2. Repeat check of renal function on Thursday. 3. Alfred check next week. Subjective: The patient chart and medications were reviewed in detail and the patient was seen and exam ined. Crystal Sadler is a 62 y.o. female with laryngeal cancer here to start treatment. Patient generally is doing okay other than intermittent clogging of her tracheostomy tube. Did go into emergency room on Thursday due to yellowish-green phlegm coming out of the trac h, no fever. Placed on Levaquin, phlegm now clear. I'm, maintaining her weight, no fevers. PMH: Past Medical History: Diagnosis Date Arthritis [...] Smoking status: Current Every Day Smoker Packs/day: 2.00 Years: 45.00 Types: Cigarettes Smokeless tobacco: Never [...] OF SYSTEMS Constitutional: Reports energy level is "horrible". Reports occasional night sweats. Denies high fevers, shaking chills, anorexia, nausea, vomiting, weight loss, or night sweats. Esther etite without changes. Ear, Nose, Mouth, Throat: Reports right side of throat is hurting again. States it didn't h urt after trach placement, but started hurting again about 2 weeks after. Reports dysphagia with both liquids and solids but has been able to eat. Ringing continues in left ear, improv ing.. Cardiovascular: Reports shortness of breath with activity. Denies shortness of breath, ches t pain, palpitations or orthopnea. Respiratory: Reports cough continues with mostly clear sputum production. Occasionally is d arker or yellow in color. Denies hemoptysis. Gastrointestinal: Denies abdominal pain, constipation, diarrhea, melena, or bright red bloo d per rectum. Genitourinary: Reports occasional pain with urination. Denies hematuria. . Musculoskeletal: Reports left shoulder pain related to rotator cuff surgery Neurologic: Reports frequent headaches. Reports vision changes due to cataracts Denies numb ness/tingling of the extremities. Endocrine: Denies peripheral edema or heat/cold intolerance. Hematologic: Denies spontaneous bruising or bleeding. Integumentary: Denies rash, wounds or other skin concerns. Pain: 1/10 pain in left shoulder. Note: Here for follow up, labs and 1st 6 hour treatment. My chart: Active Medications: Current Outpatient Prescriptions Medication Sig albuterol 2.5 mg/3 mL nebulizer solution Take 3 mLs by nebulization every 4 hours as ne eded for Wheezing or Shortness of Breath. Cholecalciferol (VITAMIN D3 PO) Take by mouth. diazePAM (VALIUM) 5 mg tablet Take 1 tablet by mouth nightly as needed. Humidifiers (COOL MIST HUMIDIFIER 1 GALLON) MISC 1 applicator by Does not apply route a s needed. HYDROcodone-acetaminophen (NORCO) 5-325 mg per tablet Take 1-2 tablets by mouth every 4 hours as needed. levoFLOXacin (LEVAQUIN) 500 mg tablet Take 1 tablet by mouth Daily. Misc. Devices (COMMODE BEDSIDE) MISC 1 Application by Does not apply route as needed. No current facility-administered medications for this encounter. Allergies: Allergies Allergen Reactions Codeine Shortness Of Breath Penicillins Other (See Comments) unknown Vitals: Temp: 36.7 C (98 F) BP: 110/64 Pulse: 79 Resp: 20 SpO2: 96 % on Temp :Temp Av.7 C (98 F) Min: 36.7 C (98 F) Max: 36.7 C (98 F) No intake or output data in the 24 hours ending 07/13/18 0921 Wt. Current: Weight: 65.1 kg (143 lb 8.3 oz) Physical Exam: Exam: ECOG Performance Status: 2 General: The patient is alert and oriented. No acute distress. Here with 2 family member s. HEENT: PERRL, Oral mucosa intact. Trach site looks well-healed.. Non-icteric. Extremities: Nontender, no erythema, no edema. Skin: No rashes, bruising, or petechiae. Neurological: , No focal deficits noted. Speech fluent. Psychiatric: Normal mood and affect. Appropriate. Diagnostic studies: Available data and image reports were reviewed personally. See reports. Significant resul ts and findings are addressed here or in the Assessment and Plan. Recent Labs Lab 07/13/18 0824 WBC 7.6 HGB 13.9 HCT 41.3 PLT 334 Recent Labs Lab 07/13/18 0824 NA 138 K 4.0 CL 104 CO2 25 BUN 15 CREA 0.77 GLU 124* MG 2.0 CALCIUM 9.1 BILITOT 0.8 AST 34 ALT 39 ALKPHOS 65 ALBUMIN 3.7 Electronically signed by: Sterling Thomas MD 07/13/2018 9:21 CC: Yeyo Anderson DO Portions of this chart may have been created with Qumu voice recognition software. Occasi onal wrong-word or [...] [place] | | | | | | [address] | | | | | | | | +--------+ + + + + | 09/15/ | Appointment | Oncology | Sterling Thomas, | | | 2017 | | | MD [address] | | | | | | [place] | | | | | | [address] | | | | | | [phone] | | | | | | | | +--------+ + + + + | 09/15/ | Appointment | Nutrition | Joselin Falcon, | | | 2017 | | | RDN | | +--------+ + + + + as of this encounter Procedures [...] in the | | | | | (HCC) | results section. | + +--------+ + + + | MAGNESIUM | STAT | 07/13/2018 | Squamous cell | Results for this | | | | 0824 PDT | carcinoma of larynx | procedure are in the | | | | | (HCC) | results section. | + +--------+ + + + | COMPREHENSIVE | STAT | 07/13/2018 | Squamous cell | Results for this | | METABOLIC PANEL | | 823 PDT | carcinoma of larynx | procedure are in the | | | | | ([facility]) | results section. | + +--------+ [...] + + in this encounter Results Magnesium (07/13/2018823) + +-------+ + + | Component | Value | Ref Range | Performed At | + +-------+ + + | Magnesium | 2.0 | 1.8 - 2.5 mg/dL | [facility] | | | | | [facility] | | | | | CENTER [...] [address] | [place] | [phone] | | [facility] | | [address] | | | - LABORATORY | | | | + + + + + | [facility] | [address] | [place] | | | [facility] | | [address] | | | - LABORATORY | | | | + + + + + CBC with Differential (07/13/2018823) + + + + + | Component | Value | Ref Range | Performed At | + + + + + | WBC | 7.6 | 4.0 - 11.0 K/uL | [facility] | | | | | [facility] | | | | | CENTER - | | | | | LABORATORY | + + + + + | RBC | 4.57 | 3.70 - 5.20 M/uL | [facility] | | | | | [facility] | | | | | C[facility] - | | | | | LABORATORY | + + + + + | Hgb | 13.9 | 11.5 - 16.0 g/dL | [facility] | | | | | [facility] | | | | | CENTER - | | | | | LABORATORY | + + + + + | Hct | 41.3 | 34.0 - 47.0 % | [facility] | | | | | [facility] | | | | | CENTER - | | | | | LABORATORY | + + + + + | MCV | 90.4 | 83.0 - 101.0 fL | [facility] | | | | | [facility] | | | | | CENTER - | | | | | LABORATORY | + + + + + | MCH | 30.4 | 28.0 - 35.0 pg | [facility] | | | | | [facility] | | | | | CENTER - | | | | | LABORATORY | + + + + + | MCHC | 33.7 | 32.0 - 36.0 g/dL | [facility] | | | | | [facility] | | | | | CENTER - | | | | | LABORATORY | + + + + + | RDW-CV | 12.9 | <15.0 % | [facility] | | | | | [facility] | | | | | CENTER - | | | | | LABORATORY | + + + + + | RDW-SD | 42.2 | 35.1 - 46.3 fL | [facility] | | | | | [facility] | | | | | CENTER - | | | | | LABORATORY | + + + + + | Platelet Count | 334 | 140 - 440 K/uL | [facility] | | | | [facility] | | | | | C[facility] - | | | | | LABORATORY | + + + + + | MPV | 9.1 | 6.5 - 12.4 fL | [facility] | | | | | [facility] | | | | | CENTER - | | | | | LABORATORY | + + + + + | % Neutrophils | 45.4 | 45.0 - 82.0 % | [facility] | | | | | [facility] | | | | | CENTER - | | | | | LABORATORY | + + + + + | % Lymphocytes | 42.2 | 20.0 - 45.0 % | [facility] | | | | | [facility] | | | | | CENTER - | | | | | LABORATORY | + + + + + | % Monocytes | 9.4 | 4.0 - 12.0 % | [facility] | | | | | [facility] | | | | | CENTER - | | | | | LABORATORY | + + + + + | % Eosinophils | 2.2 | 0.0 - 5.0 % | [facility] [...] + + + | % Immature | 0.3Comment: Preliminary | 0.0 - 0.4 % | [facility] | | granulocytes | studes have indicated | | [facility] | | | the IG% and/or IG# show | | CENTER - | | | promise as an early | | LABORATORY | | | screen for infection. | | | + + + + + | Absolute Neutrophils | 3.44 | 1.80 - 8.50 K/uL | [facility] | | | | | [facility] | | | | | CENTER - | | | | | LABORATORY | + + + + + | Absolute Lymphocytes | 3.20 | 0.60 - 3.20 K/uL | [facility] | | | | | [facility] | | | | | CENTER - | | | | | LABORATORY | + + + + + | Absolute Monocytes | 0.71 | 0.00 - 1.00 K/uL | [facility] | | | | | [facility] | | | | | CENTER - | | | | | LABORATORY | + + + + + | Absolute Eosinophils | 0.17 | 0.00 - 0.40 K/uL | [facility] | | | | | [facility] | | | | | CENTER - | | | | | LABORATORY | + + + + + | Absolute Basophils | 0.04 | 0.00 - 0.10 K/uL | [facility] | | | | | [facility] | | | | | CENTER - | | | | | LABORATORY | + + + + + | Absolute Imm. | 0.02 | 0.00 - 0.03 K/uL | [facility] [...] + | [facility] | [address] | [place] | [phone] | | [facility] | | [address] | | | - LABORATORY | | | | + + + + + | [facility] | [address] | [place] | | | [facility] | | [address] | | | - LABORATORY | | | | + + + + + Comprehensive Metabolic Panel (07/13/2018823) + + + + + | Component | Value | Ref Range | Performed At | + + + + + | NA | 138 | 136 - 149 mmol/L | [facility] | | | | | [facility] | | | | | CENTER - | | | | | LABORATORY | + + + + + | K | 4.0 | 3.5 - 5.1 mmol/L | [facility] | | | | | [facility] | | | | | CENTER - | | | | | LABORATORY | + + + + + | CL | 104 | 98 - 109 mmol/L | [facility] | | | | | [facility] | | | | | CENTER - | | | | | LABORATORY | + + + + + | CO2 | 25 | 24 - 31 mmol/L | [facility] [...] + + + + | GLUCOSE | 124 (H) | 70 - 109 mg/dL | [facility] | | | | | [facility] | | | | | CENTER - | | | | | LABORATORY | + + + + + | BUN | 15 | 7 - 18 mg/dL | [facility] | | | | | [facility] | | | | | CENTER - | | | | | LABORATORY | + + + + + | Creatinine, | 0.77 | 0.60 - 1.30 mg/dL | [facility] | | Serum/Plasma | | | [facility] | | | | | CENTER - | | | | | LABORATORY | + + + + + | eGFR if not | >60Comment: GLOMERULAR | >=60 mL/min/1.73m2 | [facility]. | | [facility] | FILTRATION | | [facility] | | | RATE,ESTIMATED mL/min | | CENTER - | | | /1.71x6Rggm than 60 | | LABORATORY | | [...] 9.1 | 8.3 - 10.5 mg/dL | [facility]. | | | | | [facility] | | | | | CENTER - | | | | | LABORATORY | + + + + + | ALBUMIN | 3.7 | 3.2 - 5.0 g/dL | [facility]. | | | | | [facility] | | | | | CENTER - | | | | | LABORATORY | + + + + + | Bilirubin Total | 0.8Comment: This is an | 0.1 - 1.5 [...] + + + | Total protein | 7.4 | 6.0 - 7.8 g/dL | [facility] | | | | | [facility] | | | | | CENTER - | | | | | LABORATORY | + + + + + | AST | 34Comment: This is an | 10 - 42 U/L | [facility] | | | appended report. These | | [facility] | | | results have been | | CENTER - | | | appended to a previously | | LABORATORY | | | preliminary verified | | | | | report. | | | + + + + + | ALT | 39Comment: This is an | 6 - 45 U/L | [facility] | | | appended report. These | | [facility] | | | results have been | | CENTER - | | | appended to a previously | | LABORATORY | | | preliminary verified | | | | | report. | | | + + + + + | ALK PHOS | 65Comment: This is an | 40 - 110 U/L | [facility] | | | appended report. These | | [facility] | | | results have been | | CENTER - | | | appended to a previously | | LABORATORY | | | preliminary verified | | | | | report. | | | + + + + + | GLOBULIN | 3.7 | 2.1 - 3.8 g/dL | [facility] | | | | | [facility] | | | | | CENTER - | | | | | LABORATORY | + + + + + | Albumin/Globulin | 1.0 | 0.8 - 2.0 | [facility] | | ratio | | | [facility] | | | | | CENTER - | | | | | LABORATORY | + + + + + | LUZ/NADEEM | 19.5 | | [facility] | | | | | [facility] | | | | | CENTER - | | | | | LABORATORY | + + + + + + + | Specimen | + + | Blood | + + + + + + + | Performing | Address | City/State/Zipcode | Phone Number | | Organization | | | | + + + + + | [facility] | [address] | [place] | [phone] | | [facility] | | [address] | | | - LABORATORY | | | | + + + + + | [facility] | [address] | [place] | | | [facility] | | [address] | | | - LABORATORY | | | | + + + + + LABS - EXTERNAL SCAN (06/16/2018) + + + | Narrative | Performed At | + + + | Ordered by an | | | unspecified provider. | | + + + PATHOLOGY - EXTERNAL SCAN (06/01/2018) + + + | Narrative | Performed At | + + + | Ordered by an | | | unspecified provider. | | + + + in this encounter Visit Diagnoses + + | Diagnosis | + + | Squamous cell carcinoma of larynx (HCC) - Primary | + + | Malignant neoplasm of larynx, unspecified site | + +
--- OUTSIDE RECORDS SUMMARY | ~2018-08-25 | XMS | Encounter Summary ---
Demographics + + + | Address | [address] | | | [place] [address] | + + + | Home Phone | | + + + | Preferred Language | Unknown | + + + | Marital Status | Single | + + + | Jainism Affiliation | Unknown | + + + | Race | Unknown | + + + | Ethnic Group | Unknown | + + + Author + + + | Author | [facility] | | | and [place] | + + + | Organization | [facility] | | | and [place] [...] Team Providers + +------+ + | Care Actuarial Internship Name | Role | Phone | + +------+ + | Yeyo Anderson DO | PCP | | + +------+ + Reason for Referral Diagnostic/Screening (Routine) +--------+--------+ + + + + | Status | Reason | Specialty | Diagnoses / | Referred By | Referred To | | | | | Procedures | Contact | Contact | +--------+--------+ + + + + | Closed | | Radiology | Diagnoses | Yovanny, | [address] | | | | | Squamous | Estefanía M, | [address] [place] | | | | | cell | MD [address] | [place], | | | | | carcinoma of | [address] | [place] [address] | | | | | larynx | [place], | Phone: | | | | | (HCC) | [place] [address] | [phone] | | | | | Procedures | Phone: | Fax: | | | | | CT Treatment | [phone] | [phone] | | | | | Plan | Fax: | | | | | | Complex CT | [phone] | | | | | | [place] PLAN | | | +--------+--------+ + + + + Diagnostic/Screening (Routine) +--------+--------+ + + + + | Status | Reason | Specialty | Diagnoses / | Referred By | Referred To | | | | | Procedures | Contact | Contact | +--------+--------+ + + + + | Closed | | Radiology | Diagnoses | Riegert, | [address] | | | | | Squamous | Estefanía M, | [address] [place] | | | | | cell | MD [address] | [place], | | | | | carcinoma of | [address] | [place] [address] | | | | | larynx | [place], | Phone: | | | | | (HCC) | [place] [address] | [phone] | | | | | Procedures | Phone: | Fax: | | | | | CT Treatment | [phone] | [phone] | | | | | Plan | Fax: | | | | | | Complex CT | [phone] | | | | | | [place] PLAN | | | +--------+--------+ + + + + Reason for Visit Diagnostic/Screening (Routine) +--------+--------+ + + + + | Status | Reason | Specialty | Diagnoses / | Referred By | Referred To | | | | | Procedures | Contact | Contact | +--------+--------+ + + + + | Closed | | Radiology | Diagnoses | Riegert, | [address] | | | | | Squamous | Estefanía M, | [place] | | | | | cell | MD [address] | [place], | | | | | carcinoma of | [address] | [place] [address] | | | | | larynx | [place], | Phone: | | | | | (HCC) | [place] [address] | [phone] | | | | | Procedures | Phone: | Fax: | | | | | CT Treatment | [phone] | [phone] | | | | | Plan | Fax: | | | | | | Complex CT | [phone] | | | | | | [place] PLAN | | | +--------+--------+ + + + + Encounter Details +--------+ + + + + | Date | Type | Department | Care Team | Description | +--------+ + + + + | 07/01/ | Hospital | [facility] | Estefanía Hairston | 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 | | | | [place], | [place] | ([facility]) | | | | [place] [address] | [address] | | | | | [phone] | | | +--------+ + + + [...] | | | | | | | ([facility]), Status post | | | | | | | emergency | | | | | | | tracheotomy for | | | | | | | assistance in | | | | | | | breathing ([facility]), | | | | | | | Chronic obstructive | | | | | | | pulmonary disease, | | | | | | | unspecified COPD | | | | | | | type ([facility]) | | | | | | [...] [place] | | | | | | [address] | | | | | | [phone] | | | | | | | [...] in the | | | | | ([facility]) | results section. | + +--------+ + + + in this encounter Results CT Treatment Plan Complex (07/01/2018 0954) + [...] | | | + +---------+ + + in this encounter Visit Diagnoses + + | Diagnosis | + + | Squamous cell carcinoma of larynx (HCC) | + + | Malignant neoplasm of larynx, unspecified site | + + Administered Medications + +--------+ +--------+------+------+ | Medication Order | MAR | Action | Dose | Rate | Site | | | Action | Date | | | | + +--------+ +--------+------+------+ | iohexol (OMNIPAQUE 350) 350 | Given | | 75 mLs | | | | mg/mL injection 75 mL 75 mL, | | 8 10:04 | | | | | Intravenous, ONCE PRN, Other, for | | PDT | | | | | CT contrast study, Starting Lenore | | | | | | | 07/01/18 at 1004, For 1 dose, | | | | | | | Radiology | | | | | | + +--------+ +--------+------+------+ +---+---+ | | | +---+---+ in this encounter"
--- OUTSIDE RECORDS SUMMARY | ~2018-08-25 | XMS | Encounter Summary ---
Demographics + + + | Address | [address] | | | [place] [address] | + + + | Home Phone | | + + + | Preferred Language | Unknown | + + + | Marital Status | Single | + + + | Evangelical Affiliation | Unknown | + + + | Race | Unknown | + + + | Ethnic Group | Unknown | + + + Author + + + | Author | [facility] | | | and Mikeana | + + + | Organization | [facility] | | | and Mikeana [...] Team Providers + +------+ + | Care District Court Judge Name | Role | Phone | + [...] | | | | COPD type | [address] | | | | | | ([facility]) | Phone: | | | | | | Smoker | [phone] | | | | | | Tracheostomy | Fax: | | | | | | , acute | [phone] | | | | | | management | | | | | | | ([facility]) | | | | | | | 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 | | | | | | | ([facility]) | | | | | [...] [place], | | | | | | ([facility]) | [place] | | | | | | Squamous | [address] | | | | | | cell | Phone: | | | | | | carcinoma of | [phone] | | | | | | larynx | Fax: | | | | | | ([facility]) | [phone] | | | | | | Procedures [...] | | | | COPD type | [address] | | | | | | ([facility]) | Phone: | | | | | | Smoker | [phone] | | | | | | Tracheostomy | Fax: | | | | | | , acute | [phone] | | | | | | management | | | | | | | ([facility]) | | | | | | | 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 | | | | | | | ([facility]) | | | + + + + [...] | | | | pain | [place], | | | | | | | [place] [address] | | | | | | | Phone: | | | | | | | [phone] | | | | | | | Fax: | | | | | | | [phone] | | + + + + + [...] + + | 06/01/ | Hospital | [facility] | Ac Hines, | Tracheostomy, acute | | 2018 - | Encounter | [facility] | MD [address], | management ([facility]) | | | | [address] [place] | [address] [place], | (Primary Dx); | | 06/10/ | | [place] [address] | [place] [address] | Bilateral foot pain; | | 2018 | | [phone] | [phone] | Right leg pain; | | | | | | Laryngeal carcinoma | | | | | | ([facility]); Status post | | | | | | emergency | | | | | | tracheotomy for | | | | | | assistance in | | | | | | breathing ([facility]); | | | | | | Chronic obstructive | | | | | | pulmonary disease, | | | | | | unspecified COPD | | | | | | type ([facility]); Smoker; | | | | | | [...] S/p debulking surgery and trach placement at [facility], transferred to [facility] for acut e care - Admitted for [...] days. Specialty: Otolaryngology Why: For wound re-check--in [place] office Contact information: [address], [address] [facility] [address] Discharge Medications New Medications Details Commode Bedside [...] signed by: Ashkan Dennis MD, 06/10/2018 10:44 [facility] in this encounter Discharge Instructions Ashkan Dennis MD - 06/10/2018You were admitted with new tracheostomy after surgery for laryngeal mass. You will need home health at home, and we are working with the [employer] to supply home tracheostomy care needs. Please follow up with Dr. Hines to jairon iglesias the tracheostomy and treatment for the laryngeal mass. The following attachments cannot be sent through Care Everywhere.Care, Tracheostomy (Englis h)Caring for Your Tracheostomy Tube and Stoma, Discharge Instructions (Beninese)Tracheostomy Care (Beninese)Tracheostomy Tube or Stoma: Your New Airway (Beninese)Tracheostomy Tube, Adjust ing to Your (Beninese)Tracheostomy Tube, Your, Answers to Common Questions About (Beninese)Tra cheostomy Tube, Your: Learning How to Communicate (Beninese)Tracheostomy Tube, Your: Tips for Eating (Beninese)Tracheostomy, Cleaning Your (Beninese)Tracheostomy, Suctioning Your (Beninese )Tracheostomy, What Is (Beninese)in this encounter Medications at Time of Discharge [...] 0 | 06/10/20 | | | ([facility]) | Does not apply route | | | 18 | | | MISCIndications: | as needed. | | | | | | Laryngeal carcinoma | | | | | | | ([facility]), Status post | | | | | | | emergency | | | | | | | tracheotomy for | | | | | | | assistance in | | | | | | | breathing ([facility]), | | | | | | | Chronic obstructive | | | | | | | pulmonary disease, | | | | | | | unspecified COPD | | | | | | | type ([facility]) | | | | | [...] Progress Notes Ashkan Dennis MD - 06/09/2018 1377 PDTFormatting of this note may be different from karine lazar. [facility] PM Hospitalist Progress Note Crystal Sadler [...] be okay to go home, asked s [facility] therapy to provide her with Passy [place] valve to help her talk better, preliminary [...] as outlined above. Ashkan Dennis 06/09/2018 17:20 [facility] Tiffani King, TRANSFORMER SHOP SUPERVISOR - 06/09/2018 0913 PDTPt is sleeping will return for trach care and suctioning when she Wakes up or her nurse calls. BS are clear but diminished SpO2 On RA is 92%, 98% on 5 lpm oxygen driven neb tx.Ac Hines MD - 06/09/2018 0759 PDTPt stable and awaiting placement. Path still pending. I' ll see her in office in next weekMarlena Diaz, TRANSFORMER SHOP SUPERVISOR - 06/09/2018 0129 PDTPatient trach w as [...] am if path is done Janee Cornell, TRANSFORMER SHOP SUPERVISOR - 06/08/2018 0956 PDTAt 0730 this morning [...] stoma to Dr. Dennis and to the nursi ng motor vehicles supervisor. At 9:14 I received a call from Dr. Hines, asking me to please go in and pull the dressin g. He asked me to pull a size 4 Shiley, uncuffed, unfenestrated and put it in the patient's room, that he will be in tomorrow, the nd, to change her from a 6 to a 4. I approached my Director, asking if I'm free to do this, and he instructed me not to. I concur with my Director, and I am not comfortable with assessing a purulent wound that larry s gone 8 days without ENT assessment. Electronically signed by: Janee Cornell, ADRIA 8 10:09 Ashkan Dennis MD - 06/08/2018 0842 PDTFormatting of this note may be different from th vashti original. [facility] PMG Hospitalist Progress Note Crystal Sadler [...] discussed with Dr. Hines who is in [place], will discuss with Dr. Chavira today - [...] as outlined above. Ashkan Dennis 06/08/2018 8:51 [facility] Prosper Dudley MD - 06/07/2018 1258 PDTFormatting of this note may be different from karine lazar. HOSPITALIST progress NOTE [facility] [place] 06/07/2018 Rounding Physician: Prosper Dudley MD Patient Name: Crystal Sadler : 1955 Medical Record: [id number] Primary Hospital Problem: Laryngeal tumor S/p tracheotomy HPI: Pt is 62yo senior living smoker who developed sore throat, hoarseness and ear ache. She was referred to ENT at which point a bulky laryngeal mass was identified On 06/01/18 the patient underwent tumor debulking, Bx at [facility] in [place], [place] Post operatively the pt abruptly developed airway obstruction and returned to the OR at [facility] time an urgent tracheostomy was performed. The pt was then transferred to [facility] ICU for further care. Initially the [...] Bx and urgent tracheotomy tube placement at [facility] on 06/01/18 Now stable from cardio-pulm standpoint Arrangements being made for transfer to skilled facility for trach training Pt to follow up with Dr Hines in approx week's time for conversion to non-cuffed trach To start XRT in near future Seen by MARKETING INTELLIGENCE MANAGER eval; some dyphagia noted; dietary recommendations noted Would consider eval by med oncol as well Continue DEIDRE's Tracheal humidification Would check caloric intake. Nicotine replacement therapy added Continue regimen. Possible feeding tube in the future Further management per ENT service Electronically signed by: rPosper Dudley MD, DATE/TIME: 06/07/2018 12:58 [facility] HOSPITALIST Prosper Sierra MD - 06/06/2018 1144 PDTFormatting of this note may be different from the original. 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 She was referred to ENT at which point a bulky laryngeal mass was identified On 06/01/18 the patient underwent tumor debulking, Bx at [facility] in [place], [place] Post operatively the pt abruptly developed airway obstruction and returned to the OR at [facility] time an urgent tracheostomy was performed. The pt was transferred to [facility] ICU for further care. Initially the [...] Dr Hines he will plan to place [facility] non-cuffed trach within the next couple of [...] Bx and urgent tracheotomy tube placement at [facility] on 06/01/18 Stable from cardio-pulm standpoint Arrangements being made for transfer to skilled facility for trach training Pt to follow up with Dr Hines in approx week's time for conversion to non-cuffed trach To start XRT in near future Seen by MARKETING INTELLIGENCE MANAGER eval; some dyphagia noted; dietary recommendations noted Would consider eval by med oncol as well Continue DEIDRE's Tracheal humidification Would check caloric intake. Nicotine replacement therapy added Continue regimen. Possible feeding tube in the future Electronically signed by: Prosper Dudley MD, DATE/TIME: 06/06/2018 11:44 [facility] reeves MD - 06/05/2018 1304 PDTFormatting of this note may be different from the original. HOSPITALIST progress NOTE [facility] [place] 06/05/2018 Rounding Physician: Prosper Dudley MD Patient Name: Crystal Sadler : 1955 Medical Record: [id number] Primary Hospital Problem: Laryngeal tumor S/p tracheotomy HPI: Pt is 62yo senior living smoker who developed sore throat, hoarseness and ear ache. She was referred to ENT at which point a bulky laryngeal mass was identified On 06/01/18 the patient underwent tumor debulking, Bx at [facility] in [place] Post operatively the pt abruptly developed airway obstruction and returned to the OR at [facility] time an urgent tracheostomy was performed. The pt was transferred to [facility] ICU for further care. Initially the [...] start XRT in near future Seen by MARKETING INTELLIGENCE MANAGER eval; some dyphagia noted; dietary recommendations noted Would consider eval by med oncol as well Continue DEIDRE's Tracheal humidification Would check caloric intake. Nicotine replacement therapy added Continue regimen. Electronically signed by: Prosper Dudley MD, DATE/TIME: 06/05/2018 13:04 [facility] hospitalPros[facility] reeves MD - 06/04/2018 1246 PDTFormatting of this note may be different from the original. 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 She was referred to ENT at which point a bulky laryngeal mass was identified On 06/01/18 the patient underwent tumor debulking, Bx at [facility] in [place] Post operatively the pt abruptly developed airway obstruction and returned to the OR at [facility] time an urgent tracheostomy was performed. The pt was transferred to [facility] ICU for further care. Initially the [...] Flow (L/min) Av Min: 8 Max: 8 06/02 1901 - 06/04 0700 In: 2434 [P.O.:480; I.V.:195] [...] To start XRT in near future Awaiting MARKETING INTELLIGENCE MANAGER eval altho pt appears to be able to tolerate po now; I am less optimistic abou t PO intake once XRT begins at which point pt may required feeding tube Would consider eval by med oncol as well Continue DEIDRE's Tracheal humidification Would check caloric intake. Nicotine replacement therapy added Check labs in AM Electronically signed by: Prosper Dudley MD, DATE/TIME: 06/04/2018 12:46 [facility] HOSPITALIST Heide Abdullahi RN - 06/02/2018 1638 PDTPt transferred down from ICU. Alert and able to mouth need or uses paper to communicate. DEPARTMENT STORE MANAGER reported th at she did try [...] feels SOB at times d/t anxiety. Ac iHnes MD - 06/02/2018 1127 PDTDoing well. Tra [...] [address] | | | | | | [place], [place] | | | | | | [address] | | | | | | | | +--------+ + + + + | 09/15/ | Appointment | Oncology | Sterling Thomas, | | | 2017 | | | MD [address] | | | | | | [place] | | | | | | [address] | | | | | | [phone] | | | | | | | [...] + in this encounter Results Calcium, Ionized (06/06/201806) + + + + + | Component | Value | Ref Range | Performed At | + + + + + | Ionized Calcium | 5.68 (H) | 4.48 - 5.28 mg/dL | [facility] | | | | | [facility] | | | | | CENTER [...] + | [facility] | [address] | [place] | [phone] | | [facility] | | [address] | | | - LABORATORY | | | | + + + + + | [facility] | [address] | [place] | | | [facility] | | [address] | | | - LABORATORY | | | | + + + + + Phosphorus (06/06/2018605) + +-------+ + + | Component | Value | Ref Range | Performed At | + +-------+ + + | Phosphorus | 3.5 | 2.5 - 4.6 mg/dL | [facility] | | | | | [facility] | | | | | CENTER - | | | | | LABORATORY | + +-------+ + + + + | Specimen | + + | Blood | + + + + + + + | Performing | Address | City/State/Zipcode | Phone Number | | Organization | | | | + + + + + | [facility] | [address] | [place] | [phone] | | [facility] | | [address] | | | - LABORATORY | | | | + + + + + | [facility] | [address] | [place], [place] | | | [facility] | | [address] | | | - LABORATORY | | | | + + + + + Magnesium (06/06/2018605) + +-------+ + + | Component | Value | Ref Range | Performed At | + +-------+ + + | Magnesium | 2.0 | 1.8 - 2.5 mg/dL | [facility] | | | | | [facility] | | | | | CENTER - | | | | | LABORATORY | + +-------+ + + + + | Specimen | + + | Blood | + + + + + + + | Performing | Address | City/State/Zipcode | Phone Number | | Organization | | | | + + + + + | [facility] | [address] | [place], [place] | [phone] | | [facility] | | [address] | | | - LABORATORY | | | | + + + + + | [facility] | [address] | [place], [place] | | | [facility] | | [address] | | | - LABORATORY | | [...] + | [facility] | [address] | [place] | [phone] | | [facility] | | [address] | | | - LABORATORY | | | | + + + + + | [facility] | [address] | [place] | | | [facility] | | [address] | | | - LABORATORY | | | | + + + + + Basic Metabolic Panel (06/06/2018605) + + + + + | Component | Value | Ref Range | Performed At | + + + + + | NA | 137 | 136 - 149 mmol/L | [facility] | | | | | [facility] | | | | | CENTER [...] | >60Comment: GLOMERULAR | >=60 mL/min/1.73m2 | [facility] | | [place] | FILTRATION | | [facility] | | | RATE,ESTIMATED mL/min | | CENTER - | | | /1.02o0Xwpf than 60 | | LABORATORY | | [...] 8.9 | 8.3 - 10.5 mg/dL | [facility]. | | | | | [facility] | | | | | CENTER - | | | | | LABORATORY | + + + + + | BUN/CREA | 18.3 | | [facility]. | | | | | [facility] | | | | | CENTER [...] + | [facility] | [address] | [place] | [phone] | | [facility] | | [address] | | | - LABORATORY | | | | + + + + + | [facility] | [address] | [place] | | | [facility] | | [address] | | | - LABORATORY | | | | + + + + + Culture, MRSA (06/01/2018 1659) + + + + + | Component | Value | Ref Range | Performed At | + + + + + | Culture | Negative for MRSA by | | [facility] | | | chromogenic agar method | | [facility] | | | | | CENTER [...] [address] | [place] | [phone] | | [facility] | | [address] | | | - LABORATORY | | | | + + + + + | [facility] | [address] | [place] | | | [facility] | | [address] | | | - LABORATORY | | [...] | | | | | | Starting 06/01/18 at 1538, RT | | | | [...] | | | 06/06/18 at 1532, Gutierrez well. | | | | | | + [...] | | | | PRN, Pain, Starting Thu06/01/18 | | PDT | | | [...] | | | | PRN, Pain, Starting e 06/01/18 | | PDT | | | [...] +-------+ +-------+---+---+ +-------+ +-------+---+---+ | Given | 8/20/201 | 10 mg | | | | [...] | | | | First dose on [facility] 06/10/18 at | | PDT | | [...] | | | | First dose on [facility] 06/10/18 at 1045 | | PDT | | | | + +-------+ +--------+---+---+ +---+---+ | | | +---+---+ + +---------+ +---+ +---+ | sodium chloride 0.45% (12 NS) | New Bag | | | [...]
--- OUTSIDE RECORDS SUMMARY | ~2018-08-25 | XMS | Encounter Summary ---
Demographics + + + | Address | [address] | | | [place] [address] | + + + | Home Phone | | + + + | Preferred Language | Unknown | + + + | Marital Status | Single | + + + | Voodoo Affiliation | Unknown | + + + | Race | Unknown | + + + | Ethnic Group | Unknown | + + + Author + + + | Author | [facility] | | | and Mikeana | + + + | Organization | [facility] | | [...] Team Providers + +------+ + | Care Bartender Helper Name | Role | Phone | + [...] neoplasm of | [address] | | | | | larynx, | [address] | [place], | | | | | unspecified | [place], | [place] [address] | | | | | (HCC) | [place] | Phone: | | | | | Procedures | [address] | [phone] | | | | | ID IV | Phone: | Fax: | | | | | INFUSION, | [phone] | [phone] | | | | | HYDRATION, | Fax: | | | | | | 31-60 MIN | [phone] | | | | | | ID IV | | | | | | | INFUSION, | | | | | | | HYDRATION, | | | | | | | EA ADD HOUR | | | | | | | ID | | | | | | | ONDANSETRON | | | | | | | ORAL ID | | | | | | | ORAL | | | | | | | DEXAMETHASON | | | | | | | E, .25 MG | | | | | | | ID | | | | | | | CHEMOTHERAPY | | | | | | | DRUG ID | | | | | | | CISPLATIN 10 | | | | | | | MG | | | | | | | INJECTION | | | | | | | ID ADRENALIN | | | | | | | EPINEPHRINE | | | | | | | INJECT, .1 | | | | | | | MG ID | | | | | | | DIPHENHYDRAM | | | | | | | INE HCL | | | | | | | INJECTIO, 50 | | | | | | | MG ID | | | | | | | METHYLPREDNI | | | | | | | SOLONE | | | | | | | INJECTION, | | | | | | | 125 MG ID | | | | | | | ALBUTEROL | | | | | | | COMP CON, 1 | | | | | | | MG ID | | | | | | | ALBUTEROL | | | | | | | NON-COMP | | | | | | | CON, 1 MG | | | | | | | ID | | | | | | | INJECTION, | | | | | | | FAMOTIDINE, | | | | | | | 20 MG ID | | | | | | | NORMAL | | | | | | | SALINE | | | | | | | SOLUTION | | | | | | | INFUS, 500 | | | | | | | ML ID | | | | | | | NORMAL | | | | | | | SALINE | | | | | | | SOLUTION | | | | | | | INFUS, 250 | | | | | | | ML ID | | | | | | | STERILE | | | | | | | WATER/SALINE | | | | | | | , 10 ML ID | | | | | | | CHEMOTHER, | | | | | | | IV PUSH,EA | | | | | | | ADD DRUG ID | | | | | | | CHEMOTHER, | | | | | | | IV INFUSION, | | | | | | | 1 HR ID | | | | | | | CHEMOTHER, | | | | | | | IV INFUSION, | | | | | | | EA HR ID | | | | | | | CHEMOTHER,NO | | | | | | | N-HORMONE | | | | | | | ANTI-NEOPL, | | | | | | | SUB-Q/IM ID | | | | | | | [...] + + | 08/10/ | Hospital | [facility] | Sterling Thomas, | 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 | | | | INFUSION [address] | [place], [place] | ([facility]); Encounter for | | | | [address] [place], | [address] | antineoplastic | | | | [place] [address] | [phone] | chemotherapy | | | | [phone] | | | +--------+ + + + [...] + + + | Blood Pressure | 132/78 | 08/10/20181433 PDT | + + + + | Pulse | 80 | 08/10/20181433 PDT | + + + + | Temperature | 36.9 C (98.4 F) | 08/10/20181433 PDT | + + + + | Respiratory Rate | 18 | 08/10/20181433 PDT | + + + + | Oxygen Saturation | 99% | 08/10/20181433 PDT | + + + + | [...] | | | | | | | ([facility]), Status post | | | | | | | emergency | | | | | | | tracheotomy for | | | | | | | assistance in | | | | | | | breathing ([facility]), | | | | | | | Chronic obstructive | | | | | | | pulmonary disease, | | | | | | | unspecified COPD | | | | | | | type ([facility]) | | | | | [...] tablet by | 30 | 1 | 08/03/ | | | (ZOFRAN) 8 MG tablet [...] + as of this encounter Progress Notes Aravind Santos RN - 08/10/2018 1438 PDTPatient discharged in satisfactory condition. Will go to XRT then home Discharged ambulatory. With family. To home. Verified that patient has antinausea medications at home. Future appointments and After Visit Summary (AVS) provided.in this encounter Plan of Treatment +--------+ + [...] [place] | | | | | | [address] | | | | | | [phone] | | | | | | | [...] chemotherapy | + + Administered Medications + +--------+ +--------+------+------+ | Medication Order | MAR | Action | Dose | Rate | Site | | | Action | Date | | | | + +--------+ +--------+------+------+ | aprepitant (CINVANTI) injection | Given | 08/10/20 | 130 mg | | | | 130 mg 130 mg, IV Push, ONCE, | | 18 10:14 | | | | | 08/10/18 at 1030, For 1 dose, | | PDT | | | | | ADMINISTER CONCURRENTLY WITH NS | | | | | | | OVER 15 MIN Administer prior to | | | | | | | chemotherapy. Administer slowly | | | | | | | over 2 minutes | | | | | | + +--------+ +--------+------+------+ +---+---+ | | | +---+---+ + +---------+ +---------+-------+---+ | CISplatin (PLATINOL) 67.5 mg in | New Bag | 08/10/20 | 67.5 mg | 250 | | | sodium chloride 0.9% 182.5 mL | | 18 12:10 | | mL/hr | | | infusion 67.5 mg (rounded from | | PDT | | | | | 67.6 mg = 40 mg/m2 | | | | | | | 1.69 m2 Treatment plan recorded | | | | | | | BSA), Intravenous, Administer | | | | | | | over 1 Hours, ONCE, Thu08/10/18 | | | | | | | at 1209, For 1 dose, | | | | | | | Chemotherapy: Use appropriate | | | | | | | handling precautions. Vesicant. | | | | | | | Protect from light. | | | | | | + +---------+ +---------+-------+---+ +---+---+ | | | +---+---+ + +-------+ +-------+---+---+ | heparin 100 units/mL flush | Given | 08/10/20 | 500 | | | | injection 500 Units 500 Units (5 | | 18 14:30 | Units | | | | mL), Intracatheter, PRN, Line | | PDT | | | | | Care, Starting Thu08/10/18 at | | | | | | | 1420 | | | | | | + +-------+ +-------+---+---+ +---+---+ | | | +---+---+ + +---------+ +---+--------+---+ | ondansetron (ZOFRAN) 16 mg, | New Bag | 08/10/20 | | 236.8 | | | dexamethasone (DECADRON) 12 mg in | | 18 10:35 | | mL/hr | | | sodium chloride 0.9% 50 mL IVPB | | PDT | | | | | Intravenous, Administer over 15 | | | | | | | Minutes, ONCE, Thu08/10/18 at | | | | | | | 1030, For 1 dose, Administer 30 | | | | | | | minutes prior to chemotherapy. | | | | | | + +---------+ +---+--------+---+ +---+---+ | | | +---+---+ + +---------+ +---+-------+---+ | sodium chloride 0.9% (NS) 500 | New Bag | 08/10/20 | | 500 | | | mL with potassium chloride 10 | 18 10:54 | | mL/hr | | | mEq, magnesium sulfate 1 g | | PDT | | | | | infusion at 500 mL/hr, | | | | | | | Intravenous, ONCE, Thu08/10/18 | | | | | | | at 1000, For 1 dose, Administer | | | | | | | pre-cisplatin. | | | | | | + +---------+ +---+-------+---+ +---+---+ | | | +---+---+ + +---------+ +---+-------+---+ | sodium chloride 0.9% (NS) 500 | New Bag | 08/10/20 | | 500 | | | mL with potassium chloride | 13:19 | | mL/hr | | | mEq, magnesium sulfate 1 g | | PDT | | | | | infusion at 500 mL/hr, | | | | | | | Intravenous, ONCE, Chip 08/10/18 | | | | | | | at 1318, For 1 dose, Administer | | | | | | | post-cisplatin. | | | | | | + +---------+ +---+-------+---+ +---+---+ | | | +---+---+ in this encounter"
--- OUTSIDE RECORDS SUMMARY | ~2018-08-25 | XMS | Encounter Summary ---
Demographics + + + | Address | [address] | | | [place] [address] | + + + | Home Phone | | + + + | Preferred Language | Unknown | + + + | Marital Status | Single | + + + | Voodoo Affiliation | Unknown | + + + | Race | Unknown | + + + | Ethnic Group | Unknown | + + + Author + + + | Author | [facility] | | | and Mikeana | + + + | Organization | [facility] | | | and Mikeana | [...] Team Providers + +------+ + | Care Repair Table Operator Name | Role | Phone | [...] neoplasm of | [address] | | | | | larynx, | [address] | [place], | | | | | unspecified | [place], | [place] [address] | | | | | (HCC) | [place] | Phone: | | | | | Procedures | [address] | [phone] | | | | | IN IV | Phone: | Fax: | | | | | INFUSION, | [phone] | [phone] | | | | | HYDRATION, | Fax: | | | | | | 31-60 MIN | [phone] | | | | | | IN IV | | | | | | | INFUSION, | | | | | | | HYDRATION, | | | | | | | EA ADD HOUR | | | | | | | IN | | | | | | | ONDANSETRON | | | | | | | ORAL IN | | | | | | | ORAL | | | | | | | DEXAMETHASON | | | | | | | E, .25 MG | | | | | | | IN | | | | | | | CHEMOTHERAPY | | | | | | | DRUG IN | | | | | | | CISPLATIN 10 | | | | | | | MG | | | | | | | INJECTION | | | | | | | IN ADRENALIN | | | | | | | EPINEPHRINE | | | | | | | INJECT, .1 | | | | | | | MG IN | | | | | | | DIPHENHYDRAM | | | | | | | INE HCL | | | | | | | INJECTIO, 50 | | | | | | | MG IN | | | | | | | METHYLPREDNI | | | | | | | SOLONE | | | | | | | INJECTION, | | | | | | | 125 MG IN | | | | | | | ALBUTEROL | | | | | | | COMP CON, 1 | | | | | | | MG IN | | | | | | | ALBUTEROL | | | | | | | NON-COMP | | | | | | | CON, 1 MG | | | | | | | IN | | | | | | | INJECTION, | | | | | | | FAMOTIDINE, | | | | | | | 20 MG IN | | | | | | | NORMAL | | | | | | | SALINE | | | | | | | SOLUTION | | | | | | | INFUS, 500 | | | | | | | ML IN | | | | | | | NORMAL | | | | | | | SALINE | | | | | | | SOLUTION | | | | | | | INFUS, 250 | | | | | | | ML IN | | | | | | | STERILE | | | | | | | WATER/SALINE | | | | | | | , 10 ML IN | | | | | | | CHEMOTHER, | | | | | | | IV PUSH,EA | | | | | | | ADD DRUG IN | | | | | | | CHEMOTHER, | | | | | | | IV INFUSION, | | | | | | | 1 HR IN | | | | | | | CHEMOTHER, | | | | | | | IV INFUSION, | | | | | | | EA HR IN | | | | | | | CHEMOTHER,NO | | | | | | | N-HORMONE | | | | | | | ANTI-NEOPL, | | | | | | | SUB-Q/IM IN | | | | | | | [...] + + | 07/13/ | Hospital | [facility] | Sterling Thomas, | Encounter for | | 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 | MED CTR CHEMO | MD [address] | antineoplastic | | | | INFUSION [address] | [place], [place] | chemotherapy ; | | | | [place], | [address] | Squamous cell | | | | [place] [address] | [phone] | carcinoma of larynx | | | | [phone] | | (HCC) | +--------+ + + [...] | | | | | | (HCC), Status post | | | | | | | emergency | | | | | | | tracheotomy for | | | | | | | assistance in | | | | | | | breathing ([facility]), | | | | | | | Chronic obstructive | | | | | | | pulmonary disease, | | | | | | | unspecified COPD | | | | | | | type ([facility]) | | | | | [...] | | | | | ([facility]), Encounter for | | | | | [...] | | | | | ([facility]), Encounter for | | | | | [...] | | | | | ([facility]), Encounter for | | | | | | | antineoplastic | | | | | | | chemotherapy | | | | | | + + + +---------+ + + as of this encounter Progress Notes Kasey Gongora, MALU - 07/13/2018 1530 PDTDischarged via wheelchair to radiation therapy Kasey Gongora, MALU - 07/13/2018 1515 PDTReports that she is having nausea medicated.in this encounter Plan of Treatment +--------+ + + + + | Date | Type | Specialty | Care Team | Description | +--------+ + + + + | 08/26/ | Appointment | Radiation Oncology | Estefanía Hairston | | | 2017 | | | MD [address] | | | | | | [place] | | | | | | [id number] | | | | | | | | +--------+ + + + + | 09/15/ | Appointment | Oncology | Sterling Thomas, | | | 2017 | | | MD [address] | | | | | | [place] | | | | | | [address] | | | | | | [phone] | | | | | | | | +--------+ + + + + | 09/15/ | Appointment | Nutrition | Joselin Falcon, | | | 2017 | | | RDN | | +--------+ + + + + as of this encounter Visit Diagnoses + + | Diagnosis | + + | Encounter for antineoplastic chemotherapy | + + | Encounter for antineoplastic chemotherapy | + + | Squamous cell carcinoma of larynx (HCC) | + + | Malignant neoplasm of larynx, unspecified site | + + Administered Medications + +---------+ +--------+-------+------+ | Medication Order | MAR | Action | Dose | Rate | Site | | | Action | Date | | | | + +---------+ +--------+-------+------+ | CISplatin (PLATINOL) 168 mg in | New Bag | | 168 mg | 500 | | | sodium chloride 0.9% 332 mL | | 8 13:08 | | mL/hr | | | infusion 168 mg (100 mg/m2 | | PDT | | | | | 1.68 m2 Treatment plan recorded | | | | | | | BSA), Intravenous, Administer | | | | | | | over 1 Hours, ONCE, 07/13/18 | | | | | | | at 1300, For 1 dose, | | | | | | | Chemotherapy: Use appropriate | | | | | | | handling precautions. Vesicant. | | | | | | | Protect from light. | | | | | | + +---------+ +--------+-------+------+ +---+---+ | | | +---+---+ + +---------+ +--------+-------+---+ | fosaprepitant (EMEND) 150 mg in | New Bag | | 150 mg | 500 | | | sodium chloride 0.9% 250 mL IVPB | | 8 10:25 | | mL/hr | | | 150 mg, Intravenous, Administer | | PDT | | | | | over 30 Minutes, ONCE, Tue | | | | | | | 07/13/18 at 1000, For 1 dose, Do | | | | | | | not shake bag. Administer prior | | | | | | | to chemotherapy. | | | | | | + +---------+ +--------+-------+---+ +---+---+ | | | +---+---+ + +-------+ +-------+---+---+ | heparin 100 units/mL flush | Given | | 500 | | | | injection 500 Units 500 Units (5 | | 8 15:15 | Units | | | | mL), Intracatheter, PRN, Line | | PDT | | | | | Care, Starting Thu07/13/18 at | | | | | | | 0927 | | | | | | + +-------+ +-------+---+---+ +---+---+ | | | +---+---+ + +-------+ +--------+---+---+ | LORazepam (ATIVAN) injection | Given | | 0.5 mg | | | | 0.5-1 mg 0.5-1 mg, Intravenous, | | 8 15:18 | | | | | PRN, Anxiety, Nausea/Vomiting, | | PDT | | | | | Starting Thu07/13/18 at 1516, For | | | | | | | 1 dose, Administer prior to | | | | | | | chemotherapy. | | | | | | + +-------+ +--------+---+---+ +---+---+ | | | +---+---+ + +---------+ +---+--------+---+ | ondansetron (ZOFRAN) 16 mg, | New Bag | | | 236.8 | | | dexamethasone (DECADRON) 12 mg in | | 8 10:09 | | mL/hr | | | sodium chloride 0.9% 50 mL IVPB | | PDT | | | | | Intravenous, Administer over 15 | | | | | | | Minutes, ONCE, Thu07/13/18 at | | | | | | | 0945, For 1 dose, Administer | | | | | | | prior to chemotherapy. | | | | | | + +---------+ +---+--------+---+ +---+---+ | | | +---+---+ + +---------+ +---+-------+---+ | sodium chloride 0.9% (NS) 1,000 | New Bag | | | 500 | | | mL with potassium chloride 20 | | 8 10:56 | | mL/hr | | | mEq, magnesium sulfate 1 g | | PDT | | | | | infusion at 500 mL/hr, | | | | | | | Intravenous, ONCE, Thu07/13/18 at | | | | | | | 1015, For 1 dose, Administer | | | | | | | 1000 mL pre-CISplatin. | | | | | | + +---------+ +---+-------+---+ +---+---+ | | | +---+---+ + +---------+ +---+-------+---+ | sodium chloride 0.9% (NS) 500 | New Bag | | | 500 | | | mL with potassium chloride 10 | | 8 14:08 | | mL/hr | | | mEq, magnesium sulfate 1 g | | PDT | | | | | infusion at 500 mL/hr, | | | | | | | Intravenous, ONCE, Tuv[place] 07/13/18 at | | | | | | | 1400, For 1 dose, Administer 500 | | | | | | | mL post-cisplatin. | | | | | | + +---------+ +---+-------+---+ +---+---+ | | | +---+---+ in this encounter"
--- OUTSIDE RECORDS SUMMARY | ~2018-08-25 | XMS | Encounter Summary ---
Demographics + + + | Address | [address] | | | [place] [address] | + + + | Home Phone | | + + + | Preferred Language | Unknown | + + + | Marital Status | Single | + + + | Cheondoism Affiliation | Unknown | + + + | Race | Unknown | + + + | Ethnic Group | Unknown | + + + Author + + + | Author | [facility] | | | and Mikeana | + + + | Organization | [facility] | [...] Team Providers + +------+ + | Care Dorr Operator Name | Role | Phone | + +------+ + | Yeyo Anderson DO | PCP | | + +------+ + Reason for Visit + + + | Reason | Comments | + + + | Nutrition Education | | + + + Evaluate & Treat (Routine) +--------+ + + + + + | Status | Reason | Specialty | Diagnoses / | Referred By | Referred To | | | | | Procedures | Contact | Contact | +--------+ + + + + + | Closed | Specialty | Nutrition | Diagnoses | [place], | [facility] | | | Services | | Squamous | Sterling Masters MD | Nutrition | | | Required | | cell | [address] | [address] | | | | | carcinoma of | [address] | [address] | | | | | larynx | [place], | [place], | | | | | (HCC) | [place] | [place] [address] | | | | | | [address] | Phone: | | | | | | Phone: | [phone] | | | | | | [phone] | Fax: | | | | | | Fax: | [phone] | | | | | | [phone] | | +--------+ + + + + + Encounter Details +--------+ + + + + | Date | Type | Department | Care Team | Description | +--------+ + + + + | 07/13/ | Hospital | [facility] | Sterling Thomas, | 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 | MED CTR NUTRITION | MD [address] | carcinoma of larynx | | | | SERVICES [address] | [place], [place] | ([facility]) | | | | [place], | [address] | | | | | [place] [address] | [phone] | | | | | [phone] | | | | | | | Joselin Falcon, | | | | | | RDN | | +--------+ [...] | | | | | | breathing ([facility]), | | | | | | | Chronic obstructive | | | | | | | pulmonary disease, | | | | | | | unspecified COPD | | | | | | | type ([facility]) | | | | [...] | | | | | | | ([facility]), Encounter for | | | [...] | | | | | | | ([facility]), Encounter for | | | [...] | | | | | | | ([facility]), Encounter for | | | | | | | antineoplastic | | | | | | | chemotherapy | | | | | | + + + +---------+ + + as of this encounter Progress Notes Joselin Falcon RDN - 07/14/2018 0804 PDTFormatting of this note may be different from karine lazar. Medical Nutrition Note SUBJECTIVE: Pt is able to maintain her weight between 143-145#. She is doing soft foods. Has not been using supplements. Provided and discussed high calorie high protein MNT, katie mcduffie the most of each bite MNT, recipes and swallowing problems hints. OBJECTIVE: Diet: high calorie high protein. Wt Readings from Last 3 Encounters: 07/13/18 65.1 kg (143 lb 8.3 oz) 06/30/18 65.2 kg (143 lb 11.8 oz) 06/25/18 66.6 kg (146 lb 13.2 oz) Ht Readings from Last 1 Encounters: 06/30/18 1.562 m (5' 1.5") BMI 26.68 Estimated needs (wt. 65kg) [id number] kcals/day 65-78 gm pro/day Medications: reviewed ASSESSMENT/PLAN: Nutrition Diagnosis: Swallowing difficulty related to new trach in the past month as evide nced by verbalization from the pt and trach placed in May.. Interventions: 1. Provided and discussed high calorie MNT 2. Provided and discussed recipes and nutritional supplements Nutrition Goals: 1. To meet nutritional needs 2. Maintain her weight Monitor: 1. Nutritional parameters 2. F/u in the cancer center Time spent: 30 minutes Thank you for the referral, Joselin Falcon RDN 07/14/2018 8:04 in this encounter Plan of Treatment +--------+ [...] [place] | | | | | | [address] | | | | | | [phone] | | | | | | | [...]
--- OUTSIDE RECORDS SUMMARY | ~2018-08-25 | XMS | Encounter Summary ---
Demographics + + + | Address | [address] | | | [place] [address] | + + + | Home Phone | | + + + | Preferred Language | Unknown | + + + | Marital Status | Single | + + + | Taoism Affiliation | Unknown | + + + | Race | Unknown | + + + | Ethnic Group | Unknown | + + + Author + + + | Author | [facility] | | | and Mikeana | + + + | Organization | [facility] | | | and Mikeana [...] Team Providers + +------+ + | Care Soap Chipper Name | Role | Phone | + +------+ + | Yeyo Anderson DO | PCP | | + +------+ + Reason for Visit + + + | Reason | Comments | + + + | Nutrition Education | | + + + Encounter Details +--------+ + + + + | Date | Type | Department | Care Team | Description | +--------+ + + + + | 08/11/ | Hospital | [facility] | Sterling Thomas, | | | 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 | MED CTR NUTRITION | MD [address] | | | | | SERVICES [address] | [place], [place] | | | | | [place], | [address] | | | | | [place] [address] | [phone] | | | | | [phone] | | | | | | | [...] | | | | | | | ([facility]), Status post | | | | | | | emergency | | | | | | | tracheotomy for | | | | | | | assistance in | | | | | | | breathing ([facility]), | | | | | | | Chronic obstructive | | | | | | | pulmonary disease, | | | | | | | unspecified COPD | | | | | | | type ([facility]) | | | | | | [...] as of this encounter Progress Notes Joselin Falcon, RDN - 08/11/2018 1453 PDTFormatting of this note may be different from karine kingston original. Medical Nutrition Note SUBJECTIVE: Pt continues to maintain her weight and is 100% of her UBW of 143-145#. Provi ded information and handout on smoothie recipes. OBJECTIVE: Diet: High calorie high protein Wt Readings from Last 3 Encounters: 08/10/18 66.3 kg (146 lb 2.6 oz) 08/05/18 65.6 kg (144 lb 10 oz) 08/03/18 65.7 kg (144 lb 13.5 oz) Ht Readings from Last 1 Encounters: 08/02/18 1.549 m (5' 1") Pt is able to meet her nutritional needs at this time. Discussed written handouts on high calorie high protein smoothie recipes. Will continue to see in the cancer center. Time spent: 15 minutes Thank you for the referral, Joselin Falcon RDN 08/11/2018 14:53 in this encounter Plan of Treatment +--------+ + + + + | Date | Type | Specialty | Care Team | Description | +--------+ + + + + | 08/26/ | Appointment | Radiation Oncology | Estefanía Hairston | | | 2017 | | | MD [address] | | | | | | [facility] [place] | | | | | | [id number] | | | | | | | | +--------+ + + + + | 09/15/ | Appointment | Oncology | Sterling Thomas, | | | 2017 | | | [address] | | | | | | [place] | | | | | | [address] | | | | | | [phone] | | | | | | | | +--------+ + + + + | 09/15/ | Appointment | Nutrition | Joselin Falcon, | | | 2017 | | | RDN | | +--------+ + + + + as of this encounter Visit Diagnoses Not on filein this encounter
--- OUTSIDE RECORDS SUMMARY | ~2018-08-25 | XMS | Encounter Summary ---
Demographics + + + | Address | [address] | | | [place] [address] | + + + | Home Phone | | + + + | Preferred Language | Unknown | + + + | Marital Status | Single | + + + | Baptist Affiliation | Unknown | + + + | Race | Unknown | + + + | Ethnic Group | Unknown | + + + Author + + + | Author | [facility] | | | and Mikeana | + + + | Organization | [facility] | | | and Mikeana [...] Team Providers + +------+ + | Care Petroleum Supply Specialist Name | Role | Phone | + +------+ + | Yeyo Anderson DO | PCP | | + +------+ + Reason for Visit + + + | Reason | Comments | + + + | Under Treatment | | + + + Encounter Details +--------+ + + + + | Date | Type | Department | Care Team | Description | +--------+ + + + + | 08/19/ | Hospital | [facility] | Yoan Paredes DO | Mucositis due to | | 2017 | Encounter | MED CTR RADIATION | [address] | radiation therapy | | | | ONCOLOGY CLINIC [address] | [place] | (Primary Dx); | | | | [address] | [address] | Squamous cell | | | | [place] [address] | | carcinoma of larynx | | | | [phone] | | (HCC) | +--------+ + + [...] + + + | Blood Pressure | 152/88 | 08/19/20181340 PDT | + + + + | Pulse | 81 | 08/19/20181340 PDT | + + + + | Temperature | 35.9 C (96.6 F) | 08/19/20181340 PDT | + + + + | Respiratory Rate | 18 | 08/19/20181340 PDT | + + + + | Oxygen Saturation | 96% | 08/19/20181340 PDT | + + + + | Inhaled Oxygen | - | - | | Concentration | | | + + + + | Weight | 68.1 kg (150 lb 2.1 | 08/19/20181340 PDT | | | oz) | | + + + + | Height | - | - | + + + + | Body Mass Index | 28.37 | 08/19/20181340 PDT | + + + + in [...] | | | | | ([facility]), Status post | | | | | | | emergency | | | | | | | tracheotomy for | | | | | | | assistance in | | | | | | | breathing ([facility]), | | | | | | | Chronic obstructive | | | | | | | pulmonary disease, | | | | | | | unspecified COPD | | | | | | | type ([facility]) | | | | | | [...] + as of this encounter Progress Notes Yoan Paredes DO - 08/19/2018 1346 PDTFormatting of this note may be different from the or iginal. Radiation Oncology Weekly On Treatment Note Diagnosis: ICD-10-CM ICD-9-CM 1. Mucositis due to radiation therapy K12.33 528.09 E879.2 2. Squamous cell carcinoma of larynx (HCC) C32.9 161.9 Reason for visit: On treatment evaluation Radiation technical factors: Dose Delivered Dose Planned Fractions Delivered 5600 cGy 7000 cGy Images were reviewed this week and results of the review have been recorded in [facility]. Corre ctions were applied as necessary. Allergies Allergen Reactions Codeine Shortness Of Breath Penicillins Other (See Comments) unknown Current Outpatient Prescriptions on File Prior to Encounter Medication Sig Dispense Refill albuterol 2.5 mg/3 mL nebulizer solution Take 3 mLs by nebulization every 4 hours as ne eded for Wheezing or Shortness of Breath. (Patient not taking: Reported on 08/18/2018) 60 vi al 0 Cholecalciferol (VITAMIN D3 PO) Take by mouth. diazePAM (VALIUM) 5 mg tablet Take 1 tablet by mouth nightly as needed. djzxvfhpteIMJXC-popvlsihx-gwxgawsh & magnesium hydroxide-simethicone (MAGIC MOUTHWASH) Take 5 mLs by mouth every 4 hours as needed for Pain (Can swish and swallow, or swish and sp it). (RECIPE = 1:1:1 mixture of Maalox, diphenhydrAMINE, viscous lidocaine) 600 mL 3 Humidifiers (COOL MIST HUMIDIFIER 1 GALLON) MISC 1 applicator by Does not apply route a s needed. 1 each 0 HYDROcodone-acetaminophen (NORCO) 5-325 mg per tablet Take 1-2 tablets by mouth every 4 hours as needed. 30 tablet 0 Misc. Devices (COMMODE BEDSIDE) MISC 1 Application by Does not apply route as needed. 1 each 0 OLANZapine (ZYPREXA) 5 mg tablet Take 1 tablet by mouth nightly. starting Day 1 of chem otherapy. 30 tablet 0 ondansetron (ZOFRAN) 8 MG tablet Take 1 tablet by mouth every 8 hours as needed for Horacio sea. May take twice daily for two days after chemo; or one tab every eight hours as needed f or nausea 30 tablet 1 No current facility-administered medications on file prior to encounter. 08/19/18 1345 Gastrointestinal Nausea 0 - Grade 0 Vomiting 0 - Grade 0 General Disorders and Administration Site Conditions Fatigue 2 - Grade 2 Metabolism and Nutrition Anorexia 0 - Grade 0 Performance Status Karnofsky Performance Score 70% Pain assessment: Location: skin around trach Pain Level: PAIN PROG PAIN LEVEL: 2 Pain Quality: Stable Current pain regimen: hydrocodone 5/325 at night Wt Readings from Last 3 Encounters: 08/19/18 68.1 kg (150 lb 2.1 oz) 08/18/18 65.1 kg (143 lb 8.3 oz) 08/12/18 66.9 kg (147 lb 7.8 oz) Vitals: 08/19/18 1341 BP: 152/88 Pulse: 81 Resp: 18 Temp: 35.9 C (96.6 F) TempSrc: Temporal SpO2: 96% Weight: 68.1 kg (150 lb 2.1 oz) Physical Exam Constitutional: She is oriented to person, place, and time. Vital signs are normal. She clayton ears well-developed and well-nourished. HENT: Head: Normocephalic and atraumatic. Eyes: Conjunctivae and EOM are normal. No scleral icterus. Neck: Trachea normal. Neck supple. Cardiovascular: Normal rate, regular rhythm and intact distal pulses. Pulmonary/Chest: Effort normal and breath sounds normal. Musculoskeletal: Normal range of motion. Neurological: She is alert and oriented to person, place, and time. She has normal strength . No cranial nerve deficit. Skin: Skin is warm, dry and intact. Psychiatric: She has a normal mood and affect. Her speech is normal and behavior is normal. Physician Assessment: Overall, she is tolerating her treatment well and will complete in under 2 weeks. She stat es that she has a dizzy sensation when lying supine or getting up. This does not occur with head turning left or right. Skin turgor is good and blood pressure is adequate. Nutrition is good with increased weight this week. Her case was discussed with Dr. Hines who sugg ested Tasha maneuver for possible otolith. Toxicities were reviewed. She will continue eliza atment as planned. Toxicities reviewed in nursing note. Disposition: Continue radiation treatment as planned. Yaon Paredes, DO Radiation Oncologist in this encounter Plan of Treatment +--------+ + + + + | Date | Type | Specialty | Care Team | Description | +--------+ + + + + | 08/26/ | Appointment | Radiation Oncology | Estefanía Hairston | | | 2017 | | | MD [address] | | | | | | [place] | | | | | | [address] | | | | | | | | +--------+ + + + + | 09/15/ | Appointment | Oncology | Sterling Thomas, | | | 2017 | | | MD [address] | | | | | | [place] | | | | | | [address] | | | | | | [phone] | | | | | | | | +--------+ + + + + | 09/15/ | Appointment | Nutrition | Joselin Falcon, | | | 2017 | | | RDN | | +--------+ + + + + as of this encounter Visit Diagnoses + + | Diagnosis | + + | Mucositis due to radiation therapy - Primary | + + | Mucositis (ulcerative) due to antineoplastic therapy | + + | Squamous cell carcinoma of larynx (HCC) | + + | Malignant neoplasm of larynx, unspecified site | + +"
--- OUTSIDE RECORDS SUMMARY | ~2018-08-25 | XMS | Encounter Summary ---
Demographics + + + | Address | [address] | | | [place] [address] | + + + | Home Phone | | + + + | Preferred Language | Unknown | + + + | Marital Status | Single | + + + | Christian Affiliation | Unknown | + + + | Race | Unknown | + + + | Ethnic Group | Unknown | + + + Author + + + | Author | [facility] | | | and [place] | + + + | Organization | [facility] | | | and [place] [...] Team Providers + +------+ + | Care Antenna Specialist Name | Role | Phone | + +------+ + | Yeyo Anderson DO | PCP | | + +------+ + Encounter Details +--------+ + + + + | Date | Type | Department | Care Team | Description | +--------+ + + + + | 08/10/ | Documentati | [facility] | Laisha Wilson | | | 2018 | on | MED CTR THERAPY OT | A, OT | | | | | OP [address] | | | | | | [place], [place] | | | | | | [address] | | | | | | [phone] | | | +--------+ + + + [...] + + + as of this encounter Progress Notes Laisha Wilson OT - 08/10/2018 [facility] [address] [place] [address] Oncology Rehab Screening Date: 08/10/2018 Patient Information Patient Name: Crystal Sadler Date of : 1955 Age: 62 y.o. Patient was seen for oncology rehab screening due to new patient consult. Patient currently being treated for squamous cell carcinoma of the larynx and treatment regimen includes comb ined chemo and radiation. Patient is s/p larynx biopsy complicated by emergency tracheostom y placement due to compromised airway. Introduced self to patient and advised her of role a nd availability of oncology rehab navigator. Patient is currently residing at the local [facility] due to she lives out of town. She did have home health services initially after h ospital d/c at her home in [place] to assist with her tracheostomy. She was going to have OVERHEAD CLEANER MAINTAINER services but then HH was d/c'd after she moved into [facility] locally during her tx . Patient reports she tries to keep her swallow "strong"; she states she does struggle with certain food textures. Erythema present on neck due to radiation. Some limitations in ROM due to trach tubing, but patient has functional ROM. Encouraged patient to move neck as mu ch as possible to maintain ROM. Patient to benefit from OVERHEAD CLEANER MAINTAINER intervention to assist with laurita ntaining strong swallow and speech function during treatment. Patient agreeable. Will requ est OVERHEAD CLEANER MAINTAINER order from MD and request OVERHEAD CLEANER MAINTAINER to coordinate tx with patient's rad/chemo appts for ea se for patient. Patient would benefit from complete evaluation for cancer rehab program due to decreased fu nctional swallow. MD will be contacted to obtain order. Electronically signed by: Laisha Wilson OT, 08/10/2018 9:58 Patient Name: Crystal Sadler/: 1955/ in this encounter Plan of Treatment +--------+ [...] [place] | | | | | | [address] | | | | | | [phone] | | | | | | | | +--------+ + + + + | 09/15/ | Appointment | Nutrition | Joselin Falcon, | | | 2017 | | | RDN | | +--------+ + + + + as of this encounter Visit Diagnoses Not on filein this encounter
--- OUTSIDE RECORDS SUMMARY | ~2018-08-25 | XMS | Encounter Summary ---
Demographics + + + | Address | [address] | | | [place] [address] | + + + | Home Phone | | + + + | Preferred Language | Unknown | + + + | Marital Status | Single | + + + | Protestant Affiliation | Unknown | + + + | Race | Unknown | + + + | Ethnic Group | Unknown | + + + Author + + + | Author | [facility] | | | and Mikeana | + + + | Organization | [facility] | | | and Mikeana | [...] Team Providers + +------+ + | Care Charcoal Kiln Burner Name | Role | Phone | + [...] + + | 07/29/ | Hospital | [facility] | Estefanía Hairston | Laryngeal cancer | | 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 | MED CTR RADIATION | MD [place] [address] | (HCC) (Primary Dx) | | | | ONCOLOGY CLINIC [address] | [place], [place] | | | | | [address] [facility] | [address] | | | | | [place] [address] | | | | | | [phone] | | | +--------+ + + + [...] + + + | Blood Pressure | 132/76 | 07/29/20181355 PDT | + + + + | Pulse | 84 | 07/29/20181355 PDT | + + + + | Temperature | 36.5 C (97.7 F) | 07/29/20181355 PDT | + + + + | Respiratory Rate | 16 | 07/29/20181355 PDT | + + + + | Oxygen Saturation | 96% | 07/29/20181355 PDT | + + + + | Inhaled Oxygen | - | - | | Concentration | | | + + + + | Weight | 66.8 kg (147 lb 4.3 | 07/29/20181355 PDT | | | oz) | | + + + + | Height | - | - | + + + + | Body Mass Index | 27.38 | 07/29/20181355 PDT | + + + + in [...] | | | | | | | ([facility]), Status post | | | | | | | emergency | | | | | | | tracheotomy for | | | | | | | assistance in | | | | | | | breathing ([facility]), | | | | | | | Chronic obstructive | | | | | | | pulmonary disease, | | | | | | | unspecified COPD | | | | | | | type ([facility]) | | | | | | + [...] | | | | | | | ([facility]), Encounter for | | | | | [...] | | | | | | | ([facility]), Encounter for | | | | | | | antineoplastic | | | | | | | chemotherapy | | | | | | + + + +---------+ + + | ondansetron | Take 1 tablet by | 30 | 0 | 07/20/20 | | | (ZOFRAN ODT) 8 mg | mouth every 8 hours | tablet | | 18 | 8 | | disintegrating | as needed for | | | | | | tablet | Nausea. | | | | | + + [...] [place] | | | | | | [address] | | | | | | | | +--------+ + + + + | 09/15/ | Appointment | Oncology | Sterling Thomas, | | | 2017 | | | [address] | | | | | | [place] | | | | | | [address] | | | | | | [phone] | | | | | | | | +--------+ + + + + | 09/15/ | Appointment | Nutrition | Joselin Falcon, | | | 2017 | | | RDN | | +--------+ + + + + as of this encounter Visit Diagnoses + + | Diagnosis | + + | Laryngeal cancer (HCC) - Primary | + + | Malignant neoplasm of larynx, unspecified site | + +"
--- OUTSIDE RECORDS SUMMARY | ~2018-08-25 | XMS | Encounter Summary ---
Demographics + + + | Address | [address] | | | [place] [address] | + + + | Home Phone | | + + + | Preferred Language | Unknown | + + + | Marital Status | Single | + + + | Confucianism Affiliation | Unknown | + + + | Race | Unknown | + + + | Ethnic Group | Unknown | + + + Author + + + | Author | [facility] | | | and [place] | + + + | Organization | [facility] | | | and [place] [...] Team Providers + +------+ + | Care Professor Of Family Medicine Name | Role | Phone | + +------+ + | Yeyo Anderson DO | PCP | | + +------+ + Encounter Details +--------+ + + + + | Date | Type | Department | Care Team | Description | +--------+ + + + + | 10/10/ | Orders Only | [facility] | Estefanía Hairston | Laryngeal cancer | | 2018 | | MED CTR RADIATION | MD [place] [address] | (HCC) (Primary Dx) | | | | ONCOLOGY CLINIC [address] | [place], [place] | | | | | [address] | [address] | | | | | [place] [address] | | | | | | [phone] | | | +--------+ + + + [...] [place] | | | | | | [address] | | | | | | [phone] | | | | | | | [...]
--- OUTSIDE RECORDS SUMMARY | ~2018-08-25 | XMS | Encounter Summary ---
Demographics + + + | Address | [address] | | | [place] [address] | + + + | Home Phone | | + + + | Preferred Language | Unknown | + + + | Marital Status | Single | + + + | Pentecostal Affiliation | Unknown | + + + | Race | Unknown | + + + | Ethnic Group | Unknown | + + + Author + + + | Author | [facility] | | | and [place] | + + + | Organization | [facility] | | | and [place] [...] Team Providers + +------+ + | Care Hemodialysis Lab Technician Name | Role | Phone | + [...] + + | 08/12/ | Hospital | [facility] | Estefanía Hairston | 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 | MED CTR RADIATION | MD [place]ana [address] | carcinoma of larynx | | | | ONCOLOGY CLINIC [address] | [place], [place] | ([facility]) (Primary Dx) | | | | [address] | [address] | | | | | [place] [address] | | | | | | [phone] | | | +--------+ + + + [...] + + + | Blood Pressure | 152/98 | 08/12/20181350 PDT | + + + + | Pulse | 94 | 08/12/20181350 PDT | + + + + | Temperature | 35.9 C (96.6 F) | 08/12/20181350 PDT | + + + + | Respiratory Rate | 16 | 08/12/20181350 PDT | + + + + | Oxygen Saturation | 94% | 08/12/20181350 PDT | + + + + | Inhaled Oxygen | - | - | | Concentration | | | + + + + | Weight | 66.9 kg (147 lb 7.8 | 08/12/20181350 PDT | | | oz) | | + + + + | Height | - | - | + + + + | Body Mass Index | 27.87 | 08/12/20181350 PDT | + + + + in [...] | | | | | | | ([facility]), Status post | | | | | | | emergency | | | | | | | tracheotomy for | | | | | | | assistance in | | | | | | | breathing ([facility]), | | | | | | | Chronic obstructive | | | | | | | pulmonary disease, | | | | | | | unspecified COPD | | | | | | | type ([facility]) | | | | | | [...] + as of this encounter Progress Notes Estefanía Hairston MD - 08/12/2018 0568 PDTFormatting of this note may be different from t lino original. Radiation Oncology Weekly On Treatment Note Diagnosis: ICD-10-CM ICD-9-CM 1. 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 60 vial 0 Cholecalciferol (VITAMIN D3 PO) Take by mouth. diazePAM (VALIUM) 5 mg tablet Take 1 tablet by mouth nightly as needed. uobeuwdtpdENTDY-gxkbkjeiu-lgktqfwe & magnesium hydroxide-simethicone (MAGIC MOUTHWASH) Take 5 [...] by mouth every 4 hours as needed. (Patient not taking: Reported on 08/03/2018) 30 tablet 0 Misc. Devices (COMMODE BEDSIDE) [...] facility-administered medications on file prior to encounter. 08/12/18 1354 General Disorders and Administration Site Conditions Fatigue 2 - Grade 2 Metabolism and Nutrition Anorexia 0 - Grade 0 Respiratory Thoracic and Mediastinal Cough 1 - Grade 1 Dyspnea 1 - Grade 1 Performance Status Karnofsky Performance Score 80% Pain assessment: Location: throat Pain Level: PAIN PROG PAIN LEVEL: 2 Pain Quality: Stable Current pain regimen: magic mouth wash Wt Readings from Last 3 Encounters: 08/12/18 66.9 kg (147 lb 7.8 oz) 08/10/18 66.3 kg (146 lb 2.6 oz) 08/05/18 65.6 kg (144 lb 10 oz) Vitals: 08/12/18 1351 BP: (!) 152/98 Pulse: 94 Resp: 16 Temp: 35.9 C (96.6 F) TempSrc: Temporal SpO2: 94% Weight: 66.9 kg (147 lb 7.8 oz) Physical Exam Constitutional: She appears well-developed and well-nourished. HENT: Mouth/Throat: Oropharynx is clear and moist and mucous membranes are normal. Neurological: She is alert. Skin: Skin is dry. No rash noted. There is erythema (Neck ). Psychiatric: She has a normal mood and affect. Lab Results Component Value Date WBC 5.4 08/10/2018 HGB 14.2 08/10/2018 HCT 42.8 08/10/2018 MCV 90.3 08/10/2018 PLT 247 08/10/2018 PLT Adequate 08/10/2018 Lab Results Component Value Date CREA 0.56 (L) 08/10/2018 BUN 10 08/10/2018 NA 132 (L) 08/10/2018 K 4.2 08/10/2018 CL 100 08/10/2018 CO2 25 08/10/2018 Lab Results Component Value Date ALT 206 (H) 08/10/2018 AST 132 (H) 08/10/2018 ALKPHOS 99 08/10/2018 BILITOT 0.4 08/10/2018 Physician Assessment: Crystal is in her 5th week of radiation with concurrent chemotherapy. She is tolerating eliza atment quite well. Notes mild fatigue and nausea. Nausea well managed with current medicat ions. 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 Reports minimal discomfort with swallowing, weight is stable to slightly improved. Labs notable for LFT elevation, Dr. Thomas has opted to switch to weekly cisplatin. Toxicities reviewed in nursing note. Disposition: Continue radiation treatment as planned. Continue concurrent chemotherapy per Dr. Thomas, anticipate weekly schedule going forward. Monitor for developing radiation mucositis, may need pain medication. She has magic mouth wash available. Continue emollient lotion to the neck 2 3 cans per day Estefanía Hairston MD Radiation Oncologist in this encounter Plan of Treatment +--------+ + + + + | Date | Type | Specialty | Care Team | Description | +--------+ + + + + | 08/26/ | Appointment | Radiation Oncology | Estefanía Hairston | | | 2017 | | | MD [address] | | | | | | [address] [place] | | | | | | [id number] | | | | | | | | +--------+ + + + + | 09/15/ | Appointment | Oncology | Sterling Thomas, | | | 2017 | | | MD [address] | | | | | | [place] | | | | | | [address] | | | | | | [phone] | | | | | | | | +--------+ + + + + | 09/15/ | Appointment | Nutrition | Joselin Falcon, | | | 2018 | | | RDN | | +--------+ + + + + as of this encounter Visit Diagnoses + + | Diagnosis | + + | 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
--- OUTSIDE RECORDS SUMMARY | ~2018-08-25 | XMS | Clinical Summary ---
Demographics + + + | Address | [address] | | | [place] [address] | + + + | Home Phone | | + + + | Preferred Language | Unknown | + + + | Marital Status | Single | + + + | Zoroastrianism Affiliation | Unknown | + + + | Race | Unknown | + + + | Ethnic Group | Unknown | + + + Author + + + | Author | [facility] | | | and [place] | + + + | Organization | [facility] | | | and [place] | + + + | Address | Unknown | + + + | Phone | Unavailable | + + + Support + + +---------+ + | Name | Relationship | Address | Phone | + + +---------+ + | Sebastian Vivsa | ECON | Unknown | | + + +---------+ + | Rafia Stephens | ECON | Unknown | | + + +---------+ + Care Team Providers + +------+ + | Care Pathology Collector Name | Role | Phone | + [...] | | ([facility]), Status post | | | | | | | | emergency | | | | | | | | tracheotomy for | | | | | | | | assistance in | | | | | | | | breathing ([facility]), | | | | | | | | Chronic obstructive | | | | | | | | pulmonary disease, | | | | | | | | unspecified COPD | | | | | | | | type ([facility]) | | | | | | | [...] | 2017 | Encounter | | MD Ezekiel Warner, | | | | | | [...] + | 08/02/ | Emergency | | [place], | Lower respiratory | | 2018 | | | Manuel Masters MD | infection (Primary | | | | | | Dx); Tracheostomy | | | | | | care ([facility]); | | | | | | Hemoptysis, endemic | | | | | | ([facility]) | +--------+ + + + + | 07/29/ | Hospital | | Estefanía Hairston | Laryngeal cancer | | 2017 | Encounter | | MD Alana | ([facility]) (Primary Dx) | +--------+ + + + + | 07/28/ | Orders Only | | Estefanía Hairston | Laryngeal cancer | | 2017 | | | MD Alana | ([facility]) (Primary Dx) | +--------+ + + + [...] larynx | | | | | | ([facility]) (Primary Dx); | | | | | | Tracheostomy, acute | | | | | | management ([facility]); | | | | | | Encounter [...] larynx | | | | | | ([facility]) (Primary Dx) | +--------+ + + + [...] | | | | ISAAC Warner | ([facility]) | +--------+ + + + + | 07/13/ | Hospital | | Sterling Thomas, | 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 | | | | | | ([facility]) (Primary Dx) | +--------+ + + + + | 07/13/ | Hospital | | Sterling Thomas, | Encounter for | | 2017 | Encounter | | | antineoplastic | | | | | | chemotherapy ; | | | | | | Squamous cell | | | | | | carcinoma of larynx | | | | | | ([facility]) | +--------+ + + + + | 07/01/ | Hospital | | Estefanía Hairston | 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 Aalna | carcinoma of larynx | | | | | | ([facility]) | +--------+ + + + + | [...] | | | Fernandoita | | | Lidia | | | Doroteo | | | : | | | 1955 | | | MRN: | | | [id number] | | | Date of | | [...] | | transferred | | | to [facility] | | | for acute | | [...] | | with Dr. | | | Crescent S | | | moker/COPD: | | [...] | | Ac M. | | | Crescent, | | | MD In 5 | | | days. | | | Specialty: | | | | | | Otolaryngol | | | ogyWhy: | | | For wound | | | re-check--i | | | n [place] | | | | | | officeConta | | | ct | | | information | | | :[address] | | [address], [place] | | | [address] | | | [place] | | | [phone] | | [phone] | | | Discharge | | | [...] | | | 10:44 | | | [place] | | | [facility] [place] | | [...] [place] | | | | | | [id number] | | | | | | | | +--------+ + + + + | 09/15/ | Appointment | | Sterling Thomas, | | | 2017 | | | MD Guero SALGADO | | | | | | [place] | | | | | | [phone] | | | | | | [phone] | | | | | | | [...] in the | | | | | ([facility]) | results section. | + +--------+ + + + | CBC WITH | STAT | 08/25/2018 | Squamous cell | Results for this | | DIFFERENTIAL | | 0744 PST | carcinoma of larynx | procedure are in the | | | | | ([facility]) | results section. | + +--------+ + + + | COMPREHENSIVE | STAT | 08/25/2018 | Squamous cell | Results for this | | METABOLIC PANEL | | 0744 PST | carcinoma of larynx | procedure are in the | | | | | ([facility]) | results section. | + +--------+ + [...] in the | | | | | ([facility]) Encounter for | results section. | | | | | antineoplastic | | | | | | chemotherapy | | + +--------+ + + + | CBC WITH | STAT | 08/18/2018 | Squamous cell | Results for this | | DIFFERENTIAL | | 0849 PDT | carcinoma of larynx | procedure are in the | | | | | ([facility]) Encounter for | results section. | | | | | antineoplastic | | | | | | chemotherapy | | + +--------+ + + + | COMPREHENSIVE | STAT | 08/18/2018 | Squamous cell | Results for this | | METABOLIC PANEL | | 0849 PDT | carcinoma of larynx | procedure are in the | | | | | ([facility]) Encounter for | results section. | | | | | antineoplastic | | | | | | chemotherapy | | + +--------+ + + + | SLIDE REVIEW, | Routin | 08/10/2018 | Squamous cell | Results for this | | PERIPHERAL SMEAR | e | 0813 PDT | carcinoma of larynx | procedure are in the | | | | | ([facility]) | results section. | + +--------+ + + + | MAGNESIUM | STAT | 08/10/2018 | Squamous cell | Results for this | | | | 0813 PDT | carcinoma of larynx | procedure are in the | | | | | ([facility]) | results section. | + +--------+ + + + | CBC WITH | STAT | 08/10/2018 | Squamous cell | Results for this | | DIFFERENTIAL | | 0813 PDT | carcinoma of larynx | procedure are in the | | | | | ([facility]) | results section. | + +--------+ + + + | COMPREHENSIVE | STAT | 08/10/2018 | Squamous cell | Results for this | | METABOLIC PANEL | | 0813 PDT | carcinoma of larynx | procedure are in the | | | | | ([facility]) | results section. | + +--------+ + + + | MAGNESIUM | STAT | 08/03/2018 | Squamous cell | Results for this | | | | 0816 PDT | carcinoma of larynx | procedure are in the | | | | | ([facility]) | results section. | + +--------+ + + + | CBC WITH | STAT | 08/03/2018 | Squamous cell | Results for this | | DIFFERENTIAL | | 0816 PDT | carcinoma of larynx | procedure are in the | | | | | ([facility]) | results section. | + +--------+ + + + | COMPREHENSIVE | STAT | 08/03/2018 | Squamous cell | Results for this | | METABOLIC PANEL | | 0816 PDT | carcinoma of larynx | procedure are in the | | | | | ([facility]) | results section. | + +--------+ + [...] DELITA | | | | | | [id number] | | | [id number] | | | This | | | [...] | | | St. | | | [place] | | | y | | | [...] | | | St. | | | [place] | | | y H. | | [...] | | | St. | | | [place] | | | y H. | | [...] | | | St. | | | [place] | | | y H. | | [...] | | | St. | | | [place] | | | y | | | [...] | | | DO | | | [facility] | | | al | | | [...] MD | | | | | | [facility] | | | al | | | [...] | | | St. | | | [place] | | | y | | | Hospit | | | al | | | Patien | | | t is | | | curren | | | tly | | | establ | | | ished | | | with | | | St | | | [place] | | | y | | | [...] St | | | | | | [place] | | | y | | | [...] in the | | | | | ([facility]) Tracheostomy, | results section. | | | | | acute management | | | | | | ([facility]) Encounter for | | | | | | antineoplastic | | | | | | chemotherapy | | + +--------+ + + + | COMPREHENSIVE | STAT | 07/26/2018 | Squamous cell | Results for this | | METABOLIC PANEL | | 1302 PDT | carcinoma of larynx | procedure are in the | | | | | ([facility]) Tracheostomy, | results section. | | | | | acute management | | | | | | ([facility]) Encounter for | | | | | | antineoplastic | | | | | | chemotherapy | | + +--------+ + + + | CBC WITH | STAT | 07/26/2018 | Squamous cell | Results for this | | DIFFERENTIAL | | 1302 PDT | carcinoma of larynx | procedure are in the | | | | | ([facility]) Tracheostomy, | results section. | | | | | acute management | | | | | | ([facility]) Encounter for | | | | | | antineoplastic | | | | | | chemotherapy | | + +--------+ + + + | CREATININE | Routin | 07/16/2018 | Squamous cell | Results for this | | | e | 1052 PDT | carcinoma of larynx | procedure are in the | | | | | ([facility]) Encounter for | results section. | | | | | antineoplastic | | | | | | chemotherapy | | + +--------+ + + + | MAGNESIUM | STAT | 07/13/2018 | Squamous cell | Results for this | | | | 0824 PDT | carcinoma of larynx | procedure are in the | | | | | ([facility]) | results section. | + +--------+ + + + | CBC WITH | STAT | 07/13/2018 | Squamous cell | Results for this | | DIFFERENTIAL | | 0824 PDT | carcinoma of larynx | procedure are in the | | | | | ([facility]) | results section. | + +--------+ + + + | COMPREHENSIVE | STAT | 07/13/2018 | Squamous cell | Results for this | | METABOLIC PANEL | | 0824 PDT | carcinoma of larynx | procedure are in the | | | | | ([facility]) | results section. | + +--------+ + + + | PET CT SKULL BASE TO | Routin | 07/01/2018 | Squamous cell | Results for this | | MID THIGH | e | 1323 PDT | carcinoma of larynx | procedure are in the | | | | | ([facility]) | results section. | + +--------+ + + + | CT TREATMENT PLAN | Routin | 07/01/2018 | Squamous cell | Results for this | | COMPLEX | e | 0954 PDT | carcinoma of larynx | procedure are in the | | | | | ([facility]) | results section. | + +--------+ + [...] [facility] | | | | | [facility] | | | | | [place] - | | | | | LABORATORY [...] + | [facility] [facility] | [address] | [place], [place] | [phone] | | [facility] | | [address] | | | - LABORATORY | | | | + + + + + | [facility] [facility] | [address] | [place], [place] | | | [facility] | | [address] | | | - LABORATORY | | [...] [facility] | | | | | [facility] | | | | [...] + | [facility] | [address] | [place] | [phone] | | [facility] | | [address] | | | - LABORATORY | | | | + + + + + | [facility] | [address] | [place], [place] | | | [facility] | | [address] | | | - LABORATORY | | [...] 12 | 7 - 18 mg/dL | [facility]. | | | | | [facility] | | | | | CENTER - | | | | | LABORATORY | + + + + + | Creatinine, | 0.63 | 0.60 - 1.30 mg/dL | [facility]. | | Serum/Plasma | | | [facility] | | | | | CENTER - | | | | | LABORATORY | + + + + + | eGFR if not | >60Comment: GLOMERULAR | >=60 mL/min/1.73m2 | [facility] | | [place] | FILTRATION | | [facility] | | | RATE,ESTIMATED mL/min | | CENTER - | | | /1.39x2Xfcq than 60 | | LABORATORY | | [...] | | an appended report. | | [facility] | | | These results have [...] | | an appended report. | | [facility] | | | These results have [...] + | [facility] | [address] | [place], [place] | [phone] | | [facility] | | [address] | | | - LABORATORY | | | | + + + + + | [facility] | [address] | [place], [place] | | | [facility] | | [address] | | | - LABORATORY | | [...] + | [facility] | [address] | [place] | [phone] | | [facility] | | [address] | | | - LABORATORY | | | | + + + + + | [facility] | [address] | [place] | | | [facility] | | [address] | | | - LABORATORY | | | | + + + + + Slide Review, Peripheral Smear (08/10/2018812) + + + + + | Component | Value | Ref Range | Performed At | + + + + + | Platelet Estimate | Adequate | Adequate | [facility] | | | | | [facility] | | | | | CENTER - | | | | | LABORATORY | + + + + + | HYPOCHROMIA | Slight (A) | (none) | [facility] | | | | | [facility] | | | | | CENTER - | | | | | LABORATORY | + + + + + | Variant Lymphocytes | Moderate (A) | (none) | [facility] | | | | | [facility] | | | | [...] [address] | [place] | [phone] | | [facility] | | [address] | | | - LABORATORY | | | | + + + + + | [facility] | [address] | [place], [place] | | | [facility] | | [address] | | | - LABORATORY | | [...] 0.93 | 0.60 - 1.30 mg/dL | [facility] | | Serum/Plasma | | | [facility] | | | | | CENTER - | | | | | LABORATORY | + + + + + | eGFR if not | >60Comment: GLOMERULAR | >=60 mL/min/1.73m2 | [facility]. | | [place] | FILTRATION | | [facility] | | | RATE,ESTIMATED mL/min | | CENTER - | | | /1.11e0Nlkt than 60 | | LABORATORY | | [...] + | [facility] | [address] | [place] | [phone] | | [facility] | | [address] | | | - LABORATORY | | | | + + + + + | [facility] | [address] | [place], [place] | | | [facility] | | [address] | | | - LABORATORY | | | | + + + + + PET CT Skull Base To Mid Thigh (07/01/2018 6733) + + -----+ | Narrative | Performed [...] | | beexcluded.Dictated and Signed by: Zach Denotn MD Electronically signed: 07/02/2018 | | 12:11 [...] [facility] | | | | | [facility] | | | | [...] + | [facility] | [address] | [place] | [phone] | | [facility] | | [address] | | | - LABORATORY | | | | + + + + + | [facility] | [address] | [place] | | | [facility] | | [address] | | | - LABORATORY | | [...] + | [facility] | [address] | [place] | [phone] | | [facility] | | [address] | | | - LABORATORY | | | | + + + + + | [facility] | [address] | [place], [place] | | | [facility] | | [address] | | | - LABORATORY | | | | + + + + + Calcium, Ionized (06/06/2018605) + + + + + | Component | Value | Ref Range | Performed At | + + + + + | Ionized Calcium | 5.68 (H) | 4.48 - 5.28 mg/dL | [facility] | | | | | [facility] | | | | | [...] + | [facility] | [address] | [place], [place] | [phone] | | [facility] | | [address] | | | - LABORATORY | | | | + + + + + | [facility] | [address] | [place], [place] | | | [facility] | | [address] | | | - LABORATORY | | [...] 11 | 7 - 18 mg/dL | [facility] | | | | | [facility] | | | | | CENTER - | | | | | LABORATORY | + + + + + | Creatinine, | 0.60 | 0.60 - 1.30 mg/dL | [facility] | | Serum/Plasma | | | [facility] | | | | | CENTER - | | | | | LABORATORY | + + + + + | eGFR if not | >60Comment: GLOMERULAR | >=60 mL/min/1.73m2 | [facility] | | [place] | FILTRATION | | [facility] | | | RATE,ESTIMATED mL/min | | CENTER - | | | /1.07h9Vdzy than 60 | | LABORATORY | | [...] + | [facility] | [address] | [place] | [phone] | | [facility] | | [address] | | | - LABORATORY | | | | + + + + + | [facility] | [address] | [place] | | | [facility] | | [address] | | | - LABORATORY | | | | + + + + + Culture, MRSA (06/01/2018 1659) + + + + + | Component | Value | Ref Range | Performed At | + + + + + | Culture | Negative for MRSA by | | [facility] | | | chromogenic agar method | | [facility] | | | | | [...] + | [facility] | [address] | [place], [place] | [phone] | | [facility] | | [address] | | | - LABORATORY | | | | + + + + + | [facility] | [address] | [place], [place] | | | [facility] | | [address] | | | - LABORATORY | | [...] +--------+ +---------+ | MEDICARE | MEDICA | [id number] | Medica | [phone] | | [...] Self [birth year] Home: | [address] | | [place] | al/Burke | | 1955 | [phone] | [place] [address] | | | emerita | | | [phone] | | + +--------+ +--------+ + +
--- OUTSIDE RECORDS SUMMARY | ~2018-08-25 | XMS | Encounter Summary ---
Demographics + + + | Address | [address] | | | [place] [address] | + + + | Home Phone [...] | Author | [facility] | | | and [place] | + + + | Organization | [facility] | | | and [...] Team Providers + +------+ + | Care Curtain Framer Name | Role | Phone | + [...] + + | 08/19/ | Hospital | [facility] | Yoan Paredes DO | Mucositis due to | | 2017 | Encounter | [facility] | [address] [facility] | radiation therapy | | | | [facility] [address] | [place] | (Primary Dx); | | | | [address] | [id number] | Squamous cell | | | | [place] [address] | | carcinoma of larynx | | | | [phone] | | (HCC) | +--------+ + + [...] | | | | | | | ([facility]), Status post | | | | | | | emergency | | | | | | | tracheotomy for | | | | | | | assistance in | | | | | | | breathing ([facility]), | | | | | | | Chronic obstructive | | | | | | | pulmonary disease, | | | | | | | unspecified COPD | | | | | | | type ([facility]) | | | | | | + [...] 1 tablet by mouth nightly as needed. fgxhugqkxpAYMCK-slbkirsoh-uiylzdce & magnesium hydroxide-simethicone (MAGIC MOUTHWASH) Take 5 [...] note. Disposition: Continue radiation treatment as planned. Yoan Paredes, DO Radiation Oncologist in this encounter [...] [place] | | | | | | [address] | | | | | | | | +--------+ + + + + | 09/15/ | Appointment | Oncology | Sterling Thomas, | | | 2017 | | | MD Guero NICOLE | | | | | | [place] | | | | | | [address] | | | | | | [phone] | | | | | | | [...]
--- OUTSIDE RECORDS SUMMARY | ~2018-08-25 | XMS | Encounter Summary ---
Demographics + + + | Address | [address] | | | [place] [address] | + + + | Home Phone | | + + + | Preferred Language | Unknown | + + + | Marital Status | Single | + + + | Spiritism Affiliation | Unknown | + + + | Race | Unknown | + + + | Ethnic Group | Unknown | + + + Author + + + | Author | [facility] | | | and Mikeana | + + + | Organization | [facility] | | | and Mikeana [...] Team Providers + +------+ + | Care Roadway Technician Name | Role | Phone | + +------+ + | Yeyo Anderson DO | PCP | | + +------+ + Encounter Details +--------+ + + + + | Date | Type | Department | Care Team | Description | +--------+ + + + + | 10// | Hospital | [facility] | Jamie Andres | 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 | | | | [facility] CLIN[facility] [address] | [address] [place] | (HCC) (Primary Dx); | | | | [address] [place] | [place] [address] | Tracheostomy, acute | | | | [place] [address] | [phone] | management (HCC); | | | | [phone] | | Encounter for | | | | | | antineoplastic | | | | | | chemotherapy | +--------+ + + + + Social [...] + + + | Blood Pressure | 127/74 | 07/26/20181345 PDT | + + + + | Pulse | 79 | 07/26/20181345 PDT | + + + + | Temperature | 36.9 C (98.4 F) | 07/26/20181345 PDT | + + + + | Respiratory Rate | 16 | 07/26/20181345 PDT | + + + + | Oxygen Saturation | 97% | 07/26/20181345 PDT | + + + + | Inhaled Oxygen | - | - | | Concentration | | | + + + + | Weight | 66.6 kg (146 lb 13.2 | 07/26/20181345 PDT | | | oz) | | + + + + | Height | - | - | + + + + | Body Mass Index | 27.29 | 07/26/20181345 PDT | + + + + in [...] tablets by | 30 | 0 | 08//20 | | | HYDROcodone-acetamin | mouth every [...] | | | | | | | ([facility]), Status post | | | | | | | emergency | | | | | | | tracheotomy for | | | | | | | assistance in | | | | | | | breathing ([facility]), | | | | | | | Chronic obstructive | | | | | | | pulmonary disease, | | | | | | | unspecified COPD | | | | | | | type ([facility]) | | | | | [...] | | | | | | | ([facility]), Encounter for | | | | | | | antineoplastic | | | | | | | chemotherapy | | | | | | + + + +---------+ + + | albuterol 2.5 mg/3 | Take 3 mLs by | 60 vial | 0 | 07/22/20 | | | mL nebulizer | nebulization [...] + as of this encounter Progress Notes Jamie Andres MD - 07/26/2018 1358 PDTFormatting of this note may be different from the original. Hem-Onc Progress Note [facility] Pt. Name/Age/: Crystal Sadler 62 y.o. 1955 Med. Record Number: [id number] Date of admission: 07/26/2018 Assessment and plan: 1. 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 Review of findings of hyperglycemia this afternoon on a random specimen exceeding 370 mg pe rcent likely reflecting patient's current high carbohydrate diet. We've urged patient to am end this as a potential important aid to getting through treatment. Subjective: The patient chart and medications were reviewed in detail and the patient was seen and exam ined. Crystal Sadler is a 62 y.o. female returns today for a jeferson check having begun aleida moradiotherapy for laryngeal carcinoma. Patient overall doing well in the week since a first infusion of cisplatin chemotherapy usi ng a standard high-dose protocol. That treatment was very well-tolerated with patient today describing virtually no nausea or emesis. Patient's main complaint has been that referable to the presence of a tracheostomy device which she has been using. She is a patient of Dr. Ac Hines. Patient does admit however to considerable diet indiscretion. Other 1 hand she recalls at least at one previous time receiving prescription medication for diabetes but by the same to bing had not been aware that it had been active. Her diet is consisted of lots of Pepsi and doughnuts, per her report. PSH: Reviewed, no changes to admission H&P. Past Medical History: Diagnosis Date Arthritis Cancer (HCC) CHF (congestive heart failure) (HCC) COPD (chronic obstructive pulmonary disease) (HCC) Diabetes mellitus (HCC) Encounter for blood transfusion Immune deficiency disorder (HCC) Seizures (HCC) Squamous cell carcinoma of larynx (HCC) Review of Systems: Constitutional: Denies fatigue. Denies high fevers, shaking chills, anorexia,vomiting, or w eight loss. Appetite without changes. States slight nausea. Night sweats-occasionally. Sta isatu feeling fatigued all the time, I only sleep a few hour at a time. Ear, Nose, Mouth, Throat: Denies tinnitus. Continues to have difficulty swallowing and can be painful. Cardiovascular: States shortness of breath, dyspnea on exertion. Denieschest pain, palpita tions or orthopnea. States occasional chest tightness. Respiratory: Denies cough, hemoptysis, or sputum production. Reports continued cough with s putum production, clear to brown with occasional streaks of blood. Gastrointestinal: Denies abdominal pain, constipation, diarrhea, melena, or bright red bloo d per rectum. Genitourinary: Denies hematuria or dysuria. Musculoskeletal:Joint pain continues, unchanged. s. Neurologic: Denies headache, visual changes, or numbness/tingling of the extremities. Visio n is becoming blurred, " I've had to dross puller from driving." Endocrine: Denies peripheral edema or heat/cold intolerance. Hematologic: Denies spontaneous bruising or bleeding. Integumentary: Denies rash, wounds or other skin concerns. Pain: Denies pain. Review of systems as above otherwise negative Scheduled Medications: Continuous Infusions: PRN Meds:. Allergy: Allergies Allergen Reactions Codeine Shortness Of Breath Penicillins Other (See Comments) unknown Current Outpatient Prescriptions on File Prior to Encounter Medication Sig Dispense Refill albuterol 2.5 mg/3 mL nebulizer solution Take 3 mLs by nebulization every 4 hours as ne eded for Wheezing or Shortness of Breath. (Patient not taking: Reported on 07/26/2018) 60 via l 0 Cholecalciferol (VITAMIN D3 PO) Take by mouth. diazePAM (VALIUM) 5 mg tablet Take 1 tablet by mouth nightly as needed. znhgmzjtfzKFJXY-huxxlsint-wviqlexx & magnesium hydroxide-simethicone (MAGIC MOUTHWASH) Take 5 mLs by mouth every 4 hours as needed for Pain (Can swish and swallow, or swish and sp it). (RECIPE = 1:1:1 mixture of Maalox, diphenhydrAMINE, viscous lidocaine) (Patient not valarie ing: Reported on 07/26/2018) 600 mL 3 Humidifiers (COOL MIST HUMIDIFIER 1 [place]) MISC 1 applicator by Does not apply route a s needed. 1 each 0 HYDROcodone-acetaminophen (NORCO) 5-325 mg per tablet Take 1-2 tablets by mouth every 4 hours as needed. 30 tablet 0 levoFLOXacin (LEVAQUIN) 500 mg tablet Take 1 tablet by mouth Daily. LORazepam (ATIVAN) 1 mg tablet Take 1 tablet by mouth every 6 hours as needed (Nausea/V omiting). 20 tablet 5 Misc. Devices (COMMODE BEDSIDE) MISC 1 Application by Does not apply route as needed. 1 each 0 OLANZapine (ZYPREXA) 5 mg tablet Take 1 tablet by mouth nightly. starting Day 1 of chem otherapy. (Patient not taking: Reported on 07/26/2018) 30 tablet 0 ondansetron (ZOFRAN ODT) 8 mg disintegrating tablet Take 1 tablet by mouth every 8 hour s as needed for Nausea. 30 tablet 0 No current facility-administered medications on file prior to encounter. Objectives: Temp: 36.9 C (98.4 F) BP: 127/74 Pulse: 79 Resp: 16 SpO2: 97 % on Min/Max Temp past 24 hours:Temp Av.9 C (98.4 F) Min: 36.9 C (98.4 F) Max: 3 6.9 C (98.4 F) No intake or output data in the 24 hours ending 07/26/18 1358 Wt. Admission: Weight: 66.6 kg (146 lb 13.2 oz) Wt. Current: Weight: 66.6 kg (146 lb 13 .2 oz) Physical Exam: Exam: General: The patient is alert and oriented. No acute distress. Psychiatric: Normal mood and affect. Diagnostic studies: Available data and images were reviewed personally. See reports. Significant results and findings are addressed here or in the Assessment and Plan. Recent Labs Lab 07/26/18 1302 WBC 5.0 HGB 13.7 HCT 40.8 PLT 230 Recent Labs Lab 07/26/18 1302 NA 134* K 4.0 CL 101 CO2 27 BUN 8 CREA 0.70 GLU 376* MG 1.7* CALCIUM 8.9 BILITOT 0.7 AST 52* ALT 127* ALKPHOS 88 ALBUMIN 3.4 Electronically signed by: Jamie Andres, 07/26/2018 13:[facility]. > 50% AT BEDSIDE, WITH FAMILY/PATIENT IN CARE AND FUR NAILER ON UNIT AND CO ORDINATION OF CARE Portions of this chart may have been created with [employer] voice recognition software. Occasi onal wrong-word or sound-alike substitutions may have occurred due to the inherent mcnally itations of voice recognition software. Please read the chart carefully and recognize, using context, where these substitutions have occurred.Adrienne Kirkland, JOINTER MACHINE OPERATOR - 07/26/2018 1348 PD TREVIEW OF SYSTEMS Constitutional: Denies fatigue. Denies high fevers, shaking chills, anorexia,vomiting, or w eight loss. Appetite without changes. States slight nausea. Night sweats-occasionally. Sta isatu feeling fatigued all the time, I only sleep a few hour at a time. Ear, Nose, Mouth, Throat: Denies tinnitus. Continues to have difficulty swallowing and can be painful. Cardiovascular: States shortness of breath, dyspnea on exertion. Denieschest pain, palpita tions or orthopnea. States occasional chest tightness. Respiratory: Denies cough, hemoptysis, or sputum production. Reports continued cough with s putum production, clear to brown with occasional streaks of blood. Gastrointestinal: Denies abdominal pain, constipation, diarrhea, melena, or bright red bloo d per rectum. Genitourinary: Denies hematuria or dysuria. Musculoskeletal:Joint pain continues, unchanged. s. Neurologic: Denies headache, visual changes, or numbness/tingling of the extremities. Visio n is becoming blurred, " I've had to dross puller from driving." Endocrine: Denies peripheral edema or heat/cold intolerance. Hematologic: Denies spontaneous bruising or bleeding. Integumentary: Denies rash, wounds or other skin concerns. Pain: Denies pain. Note: Pt is here for JEFERSON check. My chart: Active in this encounter Plan of Treatment +--------+ [...] [place] | | | | | | [address] | | | | | | [phone] | | | | | | | [...] in the | | | | | ([facility]) Tracheostomy, | results section. | | | | | acute management | | | | | | ([facility]) Encounter for | | | | | | antineoplastic | | | | | | chemotherapy | | + +--------+ + + + | MAGNESIUM | STAT | 07/26/2018 | Squamous cell | Results for this | | | | 1302 PDT | carcinoma of larynx | procedure are in the | | | | | ([facility]) Tracheostomy, | results section. | | | | | acute management | | | | | | ([facility]) Encounter for | | | | | | antineoplastic | | | | | | chemotherapy | | + +--------+ + + + | COMPREHENSIVE | STAT | 07/26/2018 | Squamous cell | Results for this | | METABOLIC PANEL | | 1302 PDT | carcinoma of larynx | procedure are in the | | | | | ([facility]) Tracheostomy, | results section. | | | | | acute management | | | | | | ([facility]) Encounter for | | | | | | antineoplastic | | | | | | chemotherapy | | + +--------+ + + + in this encounter Results Magnesium (07/26/2018 1302) + +---------+ + + | Component | Value | Ref Range | Performed At | + +---------+ + + | Magnesium | 1.7 (L) | 1.8 - 2.5 mg/dL | [facility] | | | | | [facility] | | | | | CENTER - | | | | | LABORATORY | + +---------+ + + + + | Specimen | + + | Blood | + + + + + + + | Performing | Address | City/State/Zipcode | Phone Number | | Organization | | | | + + + + + | [facility] | [address] | [place] | [phone] | | [facility] | | [address] | | | - LABORATORY | | | | + + + + + | [facility] | [address] | [place] | | | [facility] | | [address] | | | - LABORATORY | | | | + + + + + Comprehensive Metabolic Panel (07/26/2018 1302) + + + + + | Component | Value | Ref Range | Performed At | + + + + + | NA | 134 (L) | 136 - 149 mmol/L | [facility] | | | | | [facility] | | | | | C[facility] - | | | | | LABORATORY | + + + + + | K | 4.0 | 3.5 - 5.1 mmol/L | [facility] | | | | | [facility] | | | | | C[facility] - | | | | | LABORATORY | + + + + + | CL | 101 | 98 - 109 mmol/L | [facility] | | | | | [facility] | | | | | [facility] - | | | | | LABORATORY | + + + + + | CO2 | 27 | 24 - 31 mmol/L | [facility] | | | | | [facility] | | | | | [facility] - | | | | | LABORATORY | + + + + + | ANION GAP | 6 | 3 - 16 mmol/L | [facility] | | | | | [facility] | | | | | [facility] - | | | | | LABORATORY | + + + + + | GLUCOSE | 376 (H) | 70 - 109 mg/dL | [facility] | | | | | [facility] | | | | | [facility] - | | | | | LABORATORY | + + + + + | BUN | 8 | 7 - 18 mg/dL | [facility] | | | | | [facility] | | | | | CENTER - | | | | | LABORATORY | + + + + + | Creatinine, | 0.70 | 0.60 - 1.30 mg/dL | [facility] | | Serum/Plasma | | | [facility] | | | | | CENTER - | | | | | LABORATORY | + + + + + | eGFR if not | >60Comment: GLOMERULAR | >=60 mL/min/1.73m2 | [facility] | | TURKISH | FILTRATION | | [facility] | | | RATE,ESTIMATED mL/min | | CENTER - | | | /1.46x8Qltn than 60 | | LABORATORY | | [...] [facility] | | | | | [facility] | | | | | CENTER - | | | | | LABORATORY | + + + + + | ALBUMIN | 3.4 | 3.2 - 5.0 g/dL | [facility] | | | | | [facility] | | | | | CENTER - | | | | | LABORATORY | + + + + + | Bilirubin Total | 0.7Comment: This is an | 0.1 - 1.5 mg/dL | [facility] | | | appended report. These | | [facility] | | | results have been | | CENTER - | | | appended to a previously | | LABORATORY | | | preliminary verified | | | | | report. | | | + + + + + | Total protein | 6.6 | 6.0 - 7.8 g/dL | [facility] | | | | | [facility] | | | | | C[facility] - | | | | | LABORATORY | + + + + + | AST | 52 (H)Comment: This is | 10 - 42 [...] + + + + | ALT | 127 (H)Comment: This is | 6 - 45 [...] + + + | ALK PHOS | 88Comment: This is an | 40 - 110 U/L | [facility] | | | appended report. These | | [facility] | | | results have been | | CENTER - | | | appended to a previously | | LABORATORY | | | preliminary verified | | | | | report. | | | + + + + + | GLOBULIN | 3.2 | 2.1 - 3.8 g/dL | [facility] | | | | | [facility] | | | | | C[facility] - | | | | | LABORATORY | + + + + + | Albumin/Globulin | 1.1 | 0.8 - 2.0 | [facility] | | ratio | | | [facility] | | | | | CENTER - | | | | | LABORATORY | + + + + + | BUN/CREA | 11.4 | | [facility] | | | [...] + | [facility] | [address] | [place], [place] | [phone] | | [facility] | | [address] | | | - LABORATORY | | | | + + + + + | [facility] | [address] | [place], [place] | | | [facility] | | [address] | | | - LABORATORY | | | | + + + + + CBC with Differential (07/26/2018 1302) + +-------+ + + | Component | Value | Ref Range | Performed At | + +-------+ + + | WBC | 5.0 | 4.0 - 11.0 K/uL | [facility] | | | | | [facility] | | | | | [facility] - | | | | | LABORATORY | + +-------+ + + | RBC | 4.54 | 3.70 - 5.20 M/uL | [facility] | | | | | [facility] | | | | | [facility] - | | | | | LABORATORY | + +-------+ + + | Hgb | 13.7 | 11.5 - 16.0 g/dL | [facility] | | | | | [facility] | | | | | [facility] - | | | | | LABORATORY | + +-------+ + + | Hct | 40.8 | 34.0 - 47.0 % | [facility] | | | | | [facility] | | | | | [facility] - | | | | | LABORATORY | + +-------+ + + | MCV | 89.9 | 83.0 - 101.0 fL | [facility] | | | | | [facility] | | | | | C[facility] - | | | | | LABORATORY | + +-------+ + + | MCH | 30.2 | 28.0 - 35.0 pg | [facility] | | | | | [facility] | | | | | C[facility] - | | | | | LABORATORY | + +-------+ + + | MCHC | 33.6 | 32.0 - 36.0 g/dL | [facility] | | | | | [facility] | | | | | [facility] - | | | | | LABORATORY | + +-------+ + + | RDW-CV | 13.1 | <15.0 % | [facility] | | | | | [facility] | | | | | [facility] - | | | | | LABORATORY | + +-------+ + + | RDW-SD | 42.4 | 35.1 - 46.3 fL | [facility] | | | | | [facility] | | | | | [facility] - | | | | | LABORATORY | + +-------+ + + | Platelet Count | 230 | 140 - 440 K/uL | [facility] | | | | | [facility] | | | | | [facility] - | | | | | LABORATORY | + +-------+ + + | MPV | 10.0 | 6.5 - 12.4 fL | [facility] | | | | | [facility] | | | | | [facility] - | | | | | LABORATORY | + +-------+ + + | % Neutrophils | 61.5 | 45.0 - 82.0 % | [facility] | | | | | [facility] | | | | | [facility] - | | | | | LABORATORY | + +-------+ + + | % Lymphocytes | 29.1 | 20.0 - 45.0 % | [facility] | | | | | [facility] | | | | | [facility] - | | | | | LABORATORY | + +-------+ + + | % Monocytes | 7.4 | 4.0 - 12.0 % | [facility] | | | | | [facility] | | | | | [facility] - | | | | | LABORATORY | + +-------+ + + | % Eosinophils | 1.4 | 0.0 - 5.0 % | [facility] | | | | | [facility] | | | | | [facility] - | | | | | LABORATORY | + +-------+ + + | % Basophils | 0.4 | 0.0 - 1.0 % | [facility] | | | | | [facility] | | | | | C[facility] - | | | | | LABORATORY | + +-------+ + + | % Immature | 0.2 | 0.0 - 0.4 % | [facility] | | granulocytes | | | [facility] | | | | | CENTER - | | | | | LABORATORY | + +-------+ + + | Absolute Neutrophils | 3.06 | 1.80 - 8.50 K/uL | [facility] | | | | | [facility] | | | | | C[facility] - | | | | | LABORATORY | + +-------+ + + | Absolute Lymphocytes | 1.45 | 0.60 - 3.20 K/uL | [facility] | | | | | [facility] | | | | | [facility] - | | | | | LABORATORY | + +-------+ + + | Absolute Monocytes | 0.37 | 0.00 - 1.00 K/uL | [facility] | | | | | [facility] | | | | | [facility] - | | | | | LABORATORY | + +-------+ + + | Absolute Eosinophils | 0.07 | 0.00 - 0.40 K/uL | [facility] | | | | | [facility] | | | | | [facility] - | | | | | LABORATORY | + +-------+ + + | Absolute Basophils | 0.02 | 0.00 - 0.10 K/uL | [facility] | | | | | [facility] | | | | | [facility] - | | | | | LABORATORY | + +-------+ + + | Absolute Imm. | 0.01 | 0.00 - 0.03 K/uL | [facility] | | Granulocytes | | | [facility] | | | | | CENTER - | | | | | LABORATORY | + +-------+ + + | nRBC | 0 | 0 - 2 per 100 WBC's | [facility] | | | | | [facility] | | | | | [facility] - | | | | | LABORATORY | + +-------+ + + | NRBC ABS | 0.00 [...] + | [facility] | [address] | [place] | [phone] | | [facility] | | [address] | | | - LABORATORY | | | | + + + + + | [facility] | [address] | [place] | | | [facility] | | [address] | | | - LABORATORY | | | | + + + + + in this encounter Visit Diagnoses + + | Diagnosis | + + | Squamous cell carcinoma of larynx (HCC) - Primary | + + | Malignant neoplasm of larynx, unspecified site | + + | Tracheostomy, acute management (HCC) | + + | Attention to tracheostomy | + + | Encounter for antineoplastic chemotherapy | + + | Encounter for antineoplastic chemotherapy | + +
--- OUTSIDE RECORDS SUMMARY | ~2018-08-25 | XMS | Encounter Summary ---
Demographics + + + | Address | [address] | | | [place] [address] | + + + | Home Phone | | + + + | Preferred Language | Unknown | + + + | Marital Status | Single | + + + | Temple Affiliation | Unknown | + + + | Race | Unknown | + + + | Ethnic Group | Unknown | + + + Author + + + | Author | [facility] | | | and [place]ana | + + + | Organization | [facility] | | | [...] Team Providers + +------+ + | Care Captain Assistant Name | Role | Phone | + [...] | | | | (HCC) | [place] [address] | [place], [place] | | | | | | Phone: | [address] Phone: | | | | | | [phone] | [phone] | | | | | | Fax: | Fax: | | | | | | [phone] | [phone] | + + + + + + + Encounter Details +--------+ + + + + | Date | Type | Department | Care Team | Description | +--------+ + + + + | 06/29/ | Hospital | [facility] | Aneudy, | No Show | | 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 | [facility] | MD Guero Levy [address] | | | | | [facility] [address] [place] | | | | | [address] [place] | [place] [address] | | | | | [place] [address] | [phone] | | | | | [phone] | | | +--------+ + + + [...] [place] | | | | | | [id number] | | | | | | | | +--------+ + + + + | 09/15/ | Appointment | Oncology | Sterling Thomas, | | | 2017 | | | MD Guero NICOLE | | | | | | [place] | | | | | | [address] | | | | | | [phone] | | | | | | | | +--------+ + + + + | 09/15/ | Appointment | Nutrition | Joselin Falcon, | | | 2018 | | | RDN | | +--------+ + + + + as of this encounter Visit Diagnoses Not on filein this encounter"
--- OUTSIDE RECORDS SUMMARY | ~2018-08-25 | XMS | Encounter Summary ---
Demographics + + + | Address | [address] | | | [place] [address] | + + + | Home Phone | | + + + | Preferred Language | Unknown | + + + | Marital Status | Single | + + + | Yarsani Affiliation | Unknown | + + + | Race | Unknown | + + + | Ethnic Group | Unknown | + + + Author + + + | Author | [facility] | | | and [place]ana | + + + | Organization | [facility] | | | and [place] [...] Team Providers + +------+ + | Care Hydraulic Miner Blasting Name | Role | Phone | + [...] | carcinoma of | [address] | | | | | larynx | [place], | [place], | | | | | (HCC) | [place] | [place] [address] | | | | | | [address] | Phone: | | | | | | Phone: | [phone] | | | | | | [phone] | Fax: | | | | | | Fax: | [phone] | | | | | | [phone] | | +--------+ + + + + [...] | ON[facility]Y CLIN[facility] [address] | [place] [address] [place] | | | | | [address] [place] | [address] | | | | | [place] [address] | [phone] | | | | | [phone] | | | +--------+ + + + [...] [place] | | | | | | [address] | | | | | | [phone] | | | | | | | [...] | + +--------+ + + | * [facility] Nutrition Services - AMB | Routin | [...]
--- OUTSIDE RECORDS SUMMARY | ~2018-08-25 | XMS | Encounter Summary ---
Demographics + + + | Address | [address] | | | [place] [address] | + + + | Home Phone | | + + + | Preferred Language | Unknown | + + + | Marital Status | Single | + + + | Orthodox Affiliation | Unknown | + + + | Race | Unknown | + + + | Ethnic Group | Unknown | + + + Author + + + | Author | [facility] | | | and [place] | + + + | Organization | [facility] | | | and Mikeana [...] Team Providers + +------+ + | Care Variety Performer Name | Role | Phone | + +------+ + | Yeyo Anderson DO | PCP | | + +------+ + Reason for Referral Evaluate & Treat (Routine) + + + + + + + | Status | Reason | Specialty | Diagnoses / | Referred By | Referred To | | | | | Procedures | Contact | Contact | + + + + + + + | Pending | Specialty | Speech | Diagnoses | Yovanny | [facility] | | Review | Services | Pathology / | Larynx | Estefanía Warner | John [address] | | | Required | Speech | cancer (HCC) | [address] | [place] | | | | Therapy | Procedures | [address] | [place], [place] | | | | | GEOSCIENCE SPECIALIST | [place], | [address] | | | | | | [place] [address] | Phone: | | | | | | Phone: | [phone] | | | | | | [phone] | Fax: | | | | | | Fax: | [phone] | | | | | | [phone] | | + + + + + + + Encounter Details +--------+ + + + + | Date | Type | Department | Care Team | Description | +--------+ + + + + | 08/10/ | Orders Only | [facility] | Riegert, Estefanía | Larynx cancer (HCC) | | 2018 | | [facility] RAD[facility] | MD Alana [address] | (Primary Dx) | | | | ONCOLOGY CLINIC [address] | [place], [place] | | | | | [address] | [address] | | | | | [facility] [place] [address] | | | | | | [phone] | | | +--------+ + + + [...] [place] | | | | | | [address] | | | | | | | | +--------+ + + + + | 09/15/ | Appointment | Oncology | Sterling Thomas, | | | 2017 | | | MD [address]ero NICOLE | | | | | | [place] | | | | | | [address] | | | | | | [phone] | | | | | | | [...] + +--------+ + + | * [facility] | Routin | Larynx cancer | Ordered: 08/10/2018 | | Referral | e | (HCC) | | + +--------+ + + as of this encounter Visit Diagnoses + + | Diagnosis | + + | Larynx cancer (HCC) - Primary | + + | Malignant neoplasm of larynx, unspecified site | + +"
--- OUTSIDE RECORDS SUMMARY | ~2018-08-25 | XMS | Encounter Summary ---
Demographics + + + | Address | [address] | | | [place] [address] | + + + | Home Phone | | + + + | Preferred Language | Unknown | + + + | Marital Status | Single | + + + | Christianity Affiliation | Unknown | + + + | Race | Unknown | + + + | Ethnic Group | Unknown | + + + Author + + + | Author | [facility] | | | and [place] | + + + | Organization | [facility] | | | and [place] | + + + | Address | Unknown | + + + | Phone | Unavailable | + + + Support + + +---------+ + | Name | Relationship | Address | Phone | + + +---------+ + | Sebastian Vivas | ECON | Unknown | | + + +---------+ + | Rfaia Stephens | ECON | Unknown | | + + +---------+ + Care Team Providers + +------+ + | Care It Risk And Assurance Manager Name | Role | Phone | + +------+ + | Yeyo Anderson DO | PCP | | + +------+ + Encounter Details +--------+ + + + + | Date | Type | Department | Care Team | Description | +--------+ + + + + | 10// | Hospital | [facility] | Jamie Andres | 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 | | | | ONCOLOGY CLINIC [address] | [address] [place] | (HCC) (Primary Dx); | | | | [address] [place] | [place] [address] | Tracheostomy, acute | | | | [place] [address] | [phone] | management (HCC); | | | | [phone] | | Encounter for | | | [...] | | | | | ([facility]), Status post | | | | | | | emergency | | | | | | | tracheotomy for | | | | | | | assistance in | | | | | | | breathing ([facility]), | | | | | | | Chronic obstructive | | | | | | | pulmonary disease, | | | | | | | unspecified COPD | | | | | | | type ([facility]) | | | | | | [...] | | | | | ([facility]), Encounter for | | | | | [...] different from the original. Hem-Onc Progress Note [facility] Pt. Name/Age/: Crystal Sadler 62 y.o. 1955 Med. 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 yrgrxjmifrXWJSD-okpizaemj-jmylgrrj & magnesium hydroxide-simethicone (MAGIC MOUTHWASH) Take 5 [...] Electronically signed by: Jamie Andres, 07/26/2018 13:58 [facility] 20 MIN. > 50% AT BEDSIDE, WITH FAMILY/PATIENT IN CARE AND BURN TABLE OPERATOR ON UNIT AND CO ORDINATION OF CARE Portions of this chart may have been created with [employer] voice recognition software. Occasi onal wrong-word or sound-alike substitutions may have occurred due to the inherent mcnally itations of voice recognition software. 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 | | | | | acute management | | | | | | ([facility]) Encounter for | | | | | | antineoplastic | | | | | | chemotherapy | | + +--------+ + + + | MAGNESIUM | STAT | 07/26/2018 | Squamous cell | Results for this | | | | 1302 PDT | carcinoma of larynx | procedure are in the | | | | | ([facility]) Tracheostomy, | results section. | | | | | acute management | | | | | | ([facility]) Encounter for | | | | | | antineoplastic | | | | | | chemotherapy | | + +--------+ + + + | COMPREHENSIVE | STAT | 07/26/2018 | Squamous cell | Results for this | | METABOLIC PANEL | | 1302 PDT | carcinoma of larynx | procedure are in the | | | | | ([facility]) Tracheostomy, | results section. | | | | | acute management | | | | | | ([facility]) Encounter for | | | | | [...] MCGUIRE | | | | | [facility] | | | | [...] + | [facility] | [address] | [place] | [phone] | | [facility] | | [address] | | | - LABORATORY | | | | + + + + + | [facility] | [address] | [place] | | | [facility] | | [address] | | | - LABORATORY | | [...] 8 | 7 - 18 mg/dL | [facility] | | | | | [facility] | | | | | CENTER - | | | | | LABORATORY | + + + + + | Creatinine, | 0.70 | 0.60 - 1.30 mg/dL | [facility] | | Serum/Plasma | | | [facility] | | | | | CENTER - | | | | | LABORATORY | + + + + + | eGFR if not | >60Comment: GLOMERULAR | >=60 mL/min/1.73m2 | [facility] | | CZECH | FILTRATION | | [facility] | | | RATE,ESTIMATED mL/min | | CENTER - | | | /1.24c6Ddby than 60 | | LABORATORY | | [...] [facility] | | | | | [facility] | | | | | CENTER - | | | | | LABORATORY | + + + + + | ALBUMIN | 3.4 | 3.2 - 5.0 g/dL | [facility] | | | | | [facility] | | | | | CENTER - | | | | | LABORATORY | + + + + + | Bilirubin Total | 0.7Comment: This is an | 0.1 - 1.5 mg/dL | [facility] | | | appended report. These | | [facility] | | | results have been [...] + | [facility] | [address] | [place], [place] | [phone] | | [facility] | | [address] | | | - LABORATORY | | | | + + + + + | [facility] | [address] | [place], [place] | | | [facility] | | [address] | | | - LABORATORY | | [...] [facility] | | | | | [facility] | | | | | CENTER [...] + | [facility] | [address] | [place] | [phone] | | [facility] | | [address] | | | - LABORATORY | | | | + + + + + | [facility] | [address] | [place] | | | [facility] | | [address] | | | - LABORATORY | | [...]
--- OUTSIDE RECORDS SUMMARY | ~2018-08-25 | XMS | Encounter Summary ---
Demographics + + + | Address | [address] | | | [place] [address] | + + + | Home Phone | | + + + | Preferred Language | Unknown | + + + | Marital Status | Single | + + + | Muslim Affiliation | Unknown | + + + | Race | Unknown | + + + | Ethnic Group | Unknown | + + + Author + + + | Author | [facility] | | | and [place] | + + + | Organization | 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
--- OUTSIDE RECORDS SUMMARY | ~2018-08-25 | XMS | Encounter Summary ---
Demographics + + + | Address | [address] | | | [place] [address] | + + + | Home Phone | | + + + | Preferred Language | Unknown | + + + | Marital Status | Single | + + + | Presybeterian Affiliation | Unknown | + + + | Race | Unknown | + + + | Ethnic Group | Unknown | + + + Author + + + | Author | [facility] | | | and [place] | + + + | Organization | [facility] | | | and [place]ana [...] Team Providers + +------+ + | Care Wood Model Builder Name | Role | Phone | + [...] neoplasm of | [address] | | | | | larynx, | [address] | [place], | | | | | unspecified | [place], | [place] [address] | | | | | (HCC) | [place] | Phone: | | | | | Procedures | [address] | [phone] | | | | | ME IV | Phone: | Fax: | | | | | INFUSION, | [phone] | [phone] | | | | | HYDRATION, | Fax: | | | | | | 31-60 MIN | [phone] | | | | | | ME IV | | | | | | | INFUSION, | | | | | | | HYDRATION, | | | | | | | EA ADD HOUR | | | | | | | ME | | | | | | | ONDANSETRON | | | | | | | ORAL ME | | | | | | | ORAL | | | | | | | DEXAMETHASON | | | | | | | E, .25 MG | | | | | | | ME | | | | | | | CHEMOTHERAPY | | | | | | | DRUG ME | | | | | | | CISPLATIN 10 | | | | | | | MG | | | | | | | INJECTION | | | | | | | ME ADRENALIN | | | | | | | EPINEPHRINE | | | | | | | INJECT, .1 | | | | | | | MG ME | | | | | | | DIPHENHYDRAM | | | | | | | INE HCL | | | | | | | INJECTIO, 50 | | | | | | | MG ME | | | | | | | METHYLPREDNI | | | | | | | SOLONE | | | | | | | INJECTION, | | | | | | | 125 MG ME | | | | | | | ALBUTEROL | | | | | | | COMP CON, 1 | | | | | | | MG ME | | | | | | | ALBUTEROL | | | | | | | NON-COMP | | | | | | | CON, 1 MG | | | | | | | ME | | | | | | | INJECTION, | | | | | | | FAMOTIDINE, | | | | | | | 20 MG ME | | | | | | | NORMAL | | | | | | | SALINE | | | | | | | SOLUTION | | | | | | | INFUS, 500 | | | | | | | ML ME | | | | | | | NORMAL | | | | | | | SALINE | | | | | | | SOLUTION | | | | | | | INFUS, 250 | | | | | | | ML ME | | | | | | | STERILE | | | | | | | WATER/SALINE | | | | | | | , 10 ML ME | | | | | | | CHEMOTHER, | | | | | | | IV PUSH,EA | | | | | | | ADD DRUG ME | | | | | | | CHEMOTHER, | | | | | | | IV INFUSION, | | | | | | | 1 HR ME | | | | | | | CHEMOTHER, | | | | | | | IV INFUSION, | | | | | | | EA HR ME | | | | | | | CHEMOTHER,NO | | | | | | | N-HORMONE | | | | | | | ANTI-NEOPL, | | | | | | | SUB-Q/IM ME | | | | | | | [...] + + | 07/14/ | Hospital | [facility] | Sterling Thomas, | 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 | | | | INFUSION [address] | [place], [place] | ([facility]); Encounter for | | | | [place], | [address] | antineoplastic | | | | [place] [address] | [phone] | chemotherapy | | | | [phone] | | | +--------+ + + + [...] + + + | Blood Pressure | 137/88 | 07/14/20181306 PDT | + + + + | Pulse | 78 | 07/14/20181306 PDT | + + + + | Temperature | 37.2 C (99 F) | 07/14/20181306 PDT | + + + + | Respiratory Rate | 24 | 07/14/2018 1307 PDT | + + + + | Oxygen Saturation | - | - | + + + + | Inhaled [...] | | | | type ([facility]) | | | | | | [...] | | ([facility]), Encounter for | | | | [...] | | ([facility]), Encounter for | | | | | | | antineoplastic | | | | | | | chemotherapy | | | | | | + + + +---------+ + + as of this encounter Progress Notes Kasey Gongora, MALU - 07/14/2018 1435 PDTDischarged to radiation therapy Christine Gongora, RN - 07/14/2018 1308 PDTPatient arrived ambulatory for infusion reports that she had a very bad night fell twice and was incontinent. Had some nausea last night and was able t o take the nausea medication with good effects. Bowels are loose, appetite is good. Denies numbness or tingling. Reports that the worst thing right now is having a hard time remember ing things probably the stress of everything and how life changing everything has been.in th is encounter Plan of Treatment +--------+ + + + + | Date | Type | Specialty | Care Team | Description | +--------+ + + + + | 08/26/ | Appointment | Radiation Oncology | Estefanía Hairston | | | 2017 | | | MD Guero Warner | | | | | | [place] | | | | | | [id number] | | | | | | | | +--------+ + + + + | 09/15/ | Appointment | Oncology | Sterling Thomas, | | | 2017 | | | MD [address]ICOLE | | | | | | [place] | | | | | | [address] | | | | | | [phone] | | | | | | | [...] Units 500 Units (5 | | 8 14:34 | Units | | | | mL), Intracatheter, PRN, Line | | PDT | | | | | Care, Starting 07/14/18 at | | | | | | | 1242 | | | | | | + +--------+ +-------+------+------+ +---+---+ | | | +---+---+ + +---------+ +---+--------+---+ | ondansetron (ZOFRAN) 16 mg, | New Bag | | | 236.8 | | | dexamethasone (DECADRON) 12 mg in | | 8 14:17 | | mL/hr | | | sodium chloride 0.9% 50 mL IVPB | | PDT | | | | | Intravenous, Administer over 15 | | | | | | | Minutes, ONCE, Thu07/14/18 at | | | | | | | 1418, For 1 dose, Administer | | | | | | | prior to chemotherapy. | | | | | | + +---------+ +---+--------+---+ +---+---+ | | | +---+---+ + +---------+ +---+-------+---+ | sodium chloride 0.9% (NS) | New Bag | | | 650 | | | infusion at 650 mL/hr, | | 8 13:00 | | mL/hr | | | Intravenous, ONCE, Thu07/14/18 at | | PDT | | | | | 1300, For 1 dose | | | | | | + +---------+ +---+-------+---+ +---+---+ | | | +---+---+ in this encounter"
--- OUTSIDE RECORDS SUMMARY | ~2018-08-25 | XMS | Encounter Summary ---
Demographics + + + | Address | [address] | | | [place] [address] | + + + | Home Phone | | + + + | Preferred Language | Unknown | + + + | Marital Status | Single | + + + | Shinto Affiliation | Unknown | + + + | Race | Unknown | + + + | Ethnic Group | Unknown | + + + Author + + + | Author | [facility] | | | and [place] | + + + | Organization | [facility] | | | and [...] Team Providers + +------+ + | Care Wheel Alignment Mechanic Name | Role | Phone | + [...] | | | | | [place] [address] | | | | | | [phone] | | | +--------+ + + + [...] [place] | | | | | | [address] | | | | | | [phone] | | | | | | | | +--------+ + + + + | 09/15/ | Appointment | Nutrition | Joselin Falcon, | | | 2017 | | | RDN | | +--------+ + + + + as of this encounter Visit Diagnoses Not on filein this encounter"
--- OUTSIDE RECORDS SUMMARY | ~2018-08-25 | XMS | Encounter Summary ---
Demographics + + + | Address | [address] | | | [place] [address] | + + + | Home Phone | | + + + | Preferred Language | Unknown | + + + | Marital Status | Single | + + + | Islam Affiliation | Unknown | + + + | Race | Unknown | + + + | Ethnic Group | Unknown | + + + Author + + + | Author | [facility] | | | and [place] | + + + | Organization | [facility] | | | and [...] Team Providers + +------+ + | Care Necktie Turner Name | Role | Phone | + +------+ + | Yeyo Anderson DO | PCP | | + +------+ + Encounter Details +--------+ + + + + | Date | Type | Department | Care Team | Description | +--------+ + + + + | 08/24/ | [facility] | [facility] | Estefanía Hairston | Arrived | | 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 | MED CTR RADIATION | [place], [address] | | | | | ONCOLOGY [address] | [address] [place], [place] | | | | | [place], | [address] | | | | | [place] [address] | | | | | | [phone] | | | +--------+ + + + [...] | | | | | ([facility]), Status post | | | | | | | emergency | | | | | | | tracheotomy for | | | | | | | assistance in | | | | | | | breathing ([facility]), | | | | | | | Chronic obstructive | | | | | | | pulmonary disease, | | | | | | | unspecified COPD | | | | | | | type ([facility]) | | | | | | [...] tablet by | 30 | 1 | 10/16/20 | | | (ZOFRAN) 8 MG tablet [...] [place] | | | | | | [address] | | | | | | | | +--------+ + + + + | 09/15/ | Appointment | Oncology | Sterling Thomas, | | | 2017 | | | MD [address]LE | | | | | | [place] | | | | | | [address] | | | | | | [phone] | | | | | | | | +--------+ + + + + | 09/15/ | Appointment | Nutrition | Joselin Falcon, | | | 2017 | | | RDN | | +--------+ + + + + as of this encounter Visit Diagnoses Not on filein this encounter"
--- OUTSIDE RECORDS SUMMARY | ~2018-08-25 | XMS | Encounter Summary ---
Demographics + + + | Address | [address] | | | [place] [address] | + + + | Home Phone | | + + + | Preferred Language | Unknown | + + + | Marital Status | Single | + + + | Scientology Affiliation | Unknown | + + + | Race | Unknown | + + + | Ethnic Group | Unknown | + + + Author + + + | Author | [facility] | | | and [place] | + + + | Organization | [facility] | | | and [...] Team Providers + +------+ + | Care Licensed Direct Entry Midwife Name | Role | Phone | + [...] | cell | MD [address] | [place] | | | | | carcinoma of | [address] | [place], [place] | | | | | larynx | [place], | [address] | | | | | (HCC) | [place] [address] | Phone: | | | | | Procedures | Phone: | [phone] | | | | | PET CT Skull | [phone] | Fax: | | | | | Base To Mid | Fax: | [phone] | | | | | Thigh | [phone] | | +--------+--------+ + + + + [...] | cell | MD [address] | [place] | | | | | carcinoma of | [address] | [place], [place] | | | | | larynx | [place], | [address] | | | | | ([facility]) | [place] [address] | Phone: | | | | | Procedures | Phone: | [phone] | | | | | PET CT Skull | [phone] | Fax: | | | | | Base To Mid | Fax: | [phone] | | | | | Thigh | [phone] | | +--------+--------+ + + + + [...] | cell | MD [address] | [place] | | | | | carcinoma of | [address] | [place], [place] | | | | | larynx | [place], | [address] | | | | | ([facility]) | [place] [address] | Phone: | | | | | Procedures | Phone: | [phone] | | | | | PET CT Skull | [phone] | Fax: | | | | | Base To Mid | Fax: | [phone] | | | | | Thigh | [phone] | | +--------+--------+ + + + + Encounter Details +--------+ + + + + | Date | Type | Department | Care Team | Description | +--------+ + + + + | 07/01/ | Hospital | [facility] | Estefanía Hairston | 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 | | | | [address] [place] | [address] [place] | ([facility]) | | | | [place] [address] | [id number] | | | | | [phone] | | | +--------+ + + + [...] [place] | | | | | | [address] | | | | | | [phone] | | | | | | | [...] in the | | | | | ([facility]) | results section. | + [...] millicur | | | | Intravenous, ONCE, [facility] 07/01/18 at | | PDT | ies | | | | 1115, For 1 dose | | | | | | + +--------+ + +------+------+ +---+---+ | | | +---+---+ in this encounter"
--- OUTSIDE RECORDS SUMMARY | ~2018-08-25 | XMS | Encounter Summary ---
Demographics + + + | Address | [address] | | | [place] [address] | + + + | Home Phone [...] + + + | Author | [facility] | | | and Mikeana | + + + | Organization | [facility] | | | and Mikeana [...] Team Providers + +------+ + | Care Vehicle Fuel Systems Converter Name | Role | Phone | + [...] + + | 08/05/ | Hospital | [facility] | Estefanía Hairston | 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 | MED CTR RADIATION | MD Alana [address] | carcinoma of larynx | | | | ONCOLOGY CLINIC 401 | [place], [place] | ([facility]) (Primary Dx) | | | | [address] [facility] | [address] | | | | | [place] [address] | | | | | | [phone] | | | +--------+ + + + [...] + + + | Blood Pressure | 139/77 | 08/05/20181356 PDT | + + + + | Pulse | 84 | 08/05/20181356 PDT | + + + + | Temperature | 36.2 C (97.2 F) | 08/05/20181356 PDT | + + + + | Respiratory Rate | 18 | 08/05/20181356 PDT | + + + + | Oxygen Saturation | 96% | 08/05/20181356 PDT | + + + + | Inhaled Oxygen | - | - | | Concentration | | | + + + + | Weight | 65.6 kg (144 lb 10 | 08/05/20181356 PDT | | | oz) | | + + + + | Height | - | - | + + + + | Body Mass Index | 27.33 | 08/05/20181356 PDT | + + + + in [...] | | | | | | | ([facility]), Status post | | | | | | | emergency | | | | | | | tracheotomy for | | | | | | | assistance in | | | | | | | breathing ([facility]), | | | | | | | Chronic obstructive | | | | | | | pulmonary disease, | | | | | | | unspecified COPD | | | | | | | type ([facility]) | | | | | [...] + + + +---------+ + + | doxycycline | Take 1 tablet by | 20 | 0 | 08/02/20 | | | (VIBRAMYCIN) 100 mg | mouth 2 times daily | tablet | | 18 | 8 | | tablet | for 10 days. | | | | | + + [...] encounter Progress Notes Estefanía Hairston MD - 08/05/2018 7838 PDTFormatting of this note may be different from t lino original. Radiation Oncology Weekly On Treatment Note Diagnosis: ICD-10-CM ICD-9-CM 1. 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 dbuwjfupmfNFHSJ-nyscqelen-aaqbimkg & magnesium hydroxide-simethicone (MAGIC MOUTHWASH) Take 5 mLs by mouth every 4 hours as needed for Pain (Can swish and swallow, or swish and sp it). (RECIPE = 1:1:1 mixture of Maalox, diphenhydrAMINE, viscous lidocaine) 600 mL 3 doxycycline (VIBRAMYCIN) 100 mg tablet Take 1 tablet by mouth 2 times daily for 10 days . 20 tablet 0 Humidifiers (COOL MIST HUMIDIFIER 1 GALLON) MISC 1 applicator by Does not apply route a s needed. 1 each 0 HYDROcodone-acetaminophen (NORCO) 5-325 mg per tablet Take 1-2 tablets by mouth every 4 hours as needed. (Patient not taking: Reported on 08/03/2018) 30 tablet 0 LORazepam (ATIVAN) 1 mg tablet Take 1 tablet by mouth every 6 hours as needed (Nausea/V omiting). 20 tablet 5 Misc. Devices (COMMODE BEDSIDE) MISC 1 Application by Does not apply route as needed. 1 each 0 OLANZapine (ZYPREXA) 5 mg tablet Take 1 tablet by mouth nightly. starting Day 1 of chem otherapy. 30 tablet 0 ondansetron (ZOFRAN ODT) 8 mg disintegrating tablet Take 1 tablet by mouth every 8 hour s as needed for Nausea. (Patient not taking: Reported on 08/03/2018) 30 tablet 0 ondansetron (ZOFRAN) 8 MG tablet Take 1 tablet by mouth every 8 hours as needed for Horacio sea. May take twice daily for two days after chemo; or one tab every eight hours as needed f or nausea (Patient not taking: Reported on 08/05/2018) 30 tablet 1 No current facility-administered medications on file prior to encounter. 08/05/18 1402 Gastrointestinal Mucositis Oral 1 - Grade 1 Nausea 1 - Grade 1 Vomiting 1 - Grade 1 General Disorders and Administration Site Conditions Fatigue 2 - Grade 2 Metabolism and Nutrition Anorexia 1 - Grade 1 Respiratory Thoracic and Mediastinal Dyspnea 2 - Grade 2 Performance Status Karnofsky Performance Score 70% Pain assessment: Location: NA Pain Level: PAIN PROG PAIN LEVEL: 0 Wt Readings from Last 3 Encounters: 08/05/18 65.6 kg (144 lb 10 oz) 08/03/18 65.7 kg (144 lb 13.5 oz) 08/02/18 66.7 kg (147 lb) Vitals: 08/05/18 1357 BP: 139/77 Pulse: 84 Resp: 18 Temp: 36.2 C (97.2 F) TempSrc: Temporal SpO2: 96% Weight: 65.6 kg (144 lb 10 oz) Physical Exam Constitutional: She appears well-developed and well-nourished. Neurological: She is alert. Skin: No rash noted. There is erythema (Mild neck erythema). Psychiatric: She has a normal mood and affect. Lab Results Component Value Date WBC 3.3 (L) 08/03/2018 HGB 13.3 08/03/2018 HCT 40.2 08/03/2018 MCV 91.8 08/03/2018 PLT 397 08/03/2018 Lab Results Component Value Date CREA 0.62 08/03/2018 BUN 9 08/03/2018 NA 133 (L) 08/03/2018 K 4.3 08/03/2018 CL 101 08/03/2018 CO2 26 08/03/2018 Lab Results Component Value Date ALT 175 (H) 08/03/2018 AST 141 (H) 08/03/2018 ALKPHOS 82 08/03/2018 BILITOT 0.5 08/03/2018 Physician Assessment: Crystal is fatigued today reports difficulty sleeping at night and sleeps frequently during the day. Chemotherapy held this week due to neutropenia. She continues to eat well, per he r report. Weight down slightly over the week. Denies dysphagia. Managing the tracheostomy well today, but presented to the ER on Thursday with report of cough, fever and blood streaked sputum from the trach. She was seen by RT. CXR unremarkable and d/c on doxycycline . She followed up with Dr. Hines for trach management as well today. Toxicities reviewed in nursing note. Disposition: Continue radiation treatment as planned. Continue concurrent chemotherapy at the discretion of Dr. Thomas. Tracheostomy management per Dr. Hines. Encouraged her to focus on adequate nutrition and hydration. Estefanía Hairston MD Radiation Oncologist in this encounter Plan of Treatment +--------+ + + + + | Date | Type | Specialty | Care Team | Description | +--------+ + + + + | 08/26/ | Appointment | Radiation Oncology | Estefanía Hairston | | | 2017 | | | MD Guero Warner | | | | | | [place] | | | | | | [id number] | | | | | | | | +--------+ + + + + | 09/15/ | Appointment | Oncology | Sterling Thomas, | | | 2017 | | | MD [address] | | | | | | [place] | | | | | | [address] | | | | | | [phone] | | | | | | | [...]
--- OUTSIDE RECORDS SUMMARY | ~2018-08-25 | XMS | Encounter Summary ---
Demographics + + + | Address | [address] | | | [place] [address] | + + + | Home Phone | | + + + | Preferred Language | Unknown | + + + | Marital Status | Single | + + + | Islam Affiliation | Unknown | + + + | Race | Unknown | + + + | Ethnic Group | Unknown | + + + Author + + + | Author | [facility] | | | and Mikeana | + + + | Organization | [facility] | [...] Team Providers + +------+ + | Care Barrel Washer Machine Name | Role | Phone | + [...] + + | 07/29/ | Hospital | [facility] | Estefanía Hairston | Laryngeal cancer | | 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 | MED CTR RADIATION | MD Alana [address] | (HCC) (Primary Dx) | | | | ONCOLOGY CLINIC [address] | [place], [place] | | | | | [address] [facility] | [address] | | | | | [place] [address] | | | | | | [phone] | | | +--------+ + + + [...] | | | | | ([facility]), Status post | | | | | | | emergency | | | | | | | tracheotomy for | | | | | | | assistance in | | | | | | | breathing ([facility]), | | | | | | | Chronic obstructive | | | | | | | pulmonary disease, | | | | | | | unspecified COPD | | | | | | | type ([facility]) | | | | | | [...] | | | | | ([facility]), Encounter for | | | | [...] | | | | | ([facility]), Encounter for | | | | [...] [place] | | | | | | [id number] | | | | | | | | +--------+ + + + + | 09/15/ | Appointment | Oncology | Sterling Thomas, | | | 2017 | | | [address] | | | | | | [place] | | | | | | [address] | | | | | | [phone] | | | | | | | [...]
--- OUTSIDE RECORDS SUMMARY | ~2018-08-25 | XMS | Encounter Summary ---
Demographics + + + | Address | [address] | | | [place] [address] | + + + | Home Phone | | + + + | Preferred Language | Unknown | + + + | Marital Status | Single | + + + | Confucianism Affiliation | Unknown | + + + | Race | Unknown | + + + | Ethnic Group | Unknown | + + + Author + + + | Author | [facility] | | | and Mikeana | + + + | Organization | [facility] [...] Team Providers + +------+ + | Care Building Custodian Name | Role | Phone | + +------+ + PCP | Unavailable | + +------+ + Reason for Referral [...] | | | | Squamous | Estefanía Warner | [address] | | | | | cell | MD [address] | [place], | | | | | carcinoma of | [address] | [place] [address] | | | | | larynx | [place], | Phone: | | | | | (HCC) | [place] [address] | [phone] | | | | | Procedures | Phone: | Fax: | | | | | CT Treatment | [phone] | [phone] | | | | | Plan | Fax: | | | | | | Complex CT | [phone] | | | | | | [place] PLAN | | | +--------+--------+ + + + + Evaluate & Treat (Routine) + + + + + + + | Status | Reason | Specialty | Diagnoses / | Referred By | Referred To | | | | | Procedures | Contact | Contact | + + + + + + + | Authorized | Specialty | Oncology | Diagnoses | Yovanny, | Mckenna, | | | Services | | Squamous | Estefanía Warner, | Jamie | | | Required | | cell | MD [address] | MD Manuel | | | | | carcinoma of | [address] | [address] | | | | | larynx | [place], | [place] | | | | | ([facility]) | [place] [address] | [place], [place] | | | | | | Phone: | [phone] Phone: | | | | | | [phone] | [phone] | | | | | | Fax: | Fax: | | | | | | [phone] | [phone] | + + + + + + + Diagnostic/Screening (Routine) +--------+--------+ [...] | cell | MD [address] | [place] | | | | | carcinoma of | [address] | [place] | | | | | larynx | [place], | [address] | | | | | ([facility]) | [place] [address] | Phone: | | | | | Procedures | Phone: | [phone] | | | | | PET CT Skull | [phone] | Fax: | | | | | Base To Mid | Fax: | [phone] | | | | | Thigh | [phone] | | +--------+--------+ + + + + Reason for Visit +---------+ + | Reason | Comments | +---------+ + | Consult | Laryngeal cancer | +---------+ + Evaluate & Treat (Routine) +--------+ + + + + + | Status | Reason | Specialty | Diagnoses / | Referred By | Referred To | | | | | Procedures | Contact | Contact | +--------+ + + + + + | Closed | Specialty | Radiation | Diagnoses | Donny, | Yovanny, | | | Services | Oncology | Larynx CA | Ac Warner MD | Estefanía Warner MD | | | Required | | Procedures | [address] | [address] | | | | | [place] OFFICE | [address] | [address] | | | | | OUTPATIENT | [facility], | [place], | | | | | VISIT [address] | [place] [address] | [place] [address] | | | | | MINUTES | Phone: | Phone: | | | | | | [phone] | [phone] | | | | | | Fax: | Fax: | | | | | | [phone] | [phone] | +--------+ + + + + + Encounter Details +--------+ + + + + | Date | Type | Department | Care Team | Description | +--------+ + + + + | 06/25/ | Hospital | [facility] | Estefanía Hairston | 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 | | | | ONCOLOGY CLINIC [address] | [place], [place] | (HCC) (Primary Dx) | | | | [address] [facility] | [address] | | | | | [place] [address] | | | | | | [phone] | | | +--------+ + + + [...] + + + | Blood Pressure | 143/78 | 06/25/2018846 PDT | + + + + | Pulse | 82 | 06/25/2018846 PDT | + + + + | Temperature | 36.1 C (96.9 F) | 06/25/2018846 PDT | + + + + | Respiratory Rate | 16 | 06/25/2018846 PDT | + + + + | Oxygen Saturation | 96% | 06/25/2018846 PDT | + + + + | Inhaled Oxygen | - | - | | Concentration | | | + + + + | Weight | 66.6 kg (146 lb 13.2 | 06/25/2018846 PDT | | | oz) | | + + + + | Height | 158 cm (5' 2.21") | 06/25/2018846 PDT | + + + + | Body Mass Index | 26.68 | 06/25/2018 0847 PDT | + + + + in [...] | | | | | | | ([facility]), Status post | | | | | | | emergency | | | | | | | tracheotomy for | | | | | | | assistance in | | | | | | | breathing ([facility]), | | | | | | | Chronic obstructive | | | | | | | pulmonary disease, | | | | | | | unspecified COPD | | | | | | | type ([facility]) | | | | | | [...] 08/26/ | Appointment | Radiation Oncology | YovannyElijahEstefanía | | | 2017 | | | MD [address] | | | | | | [place] | | | | | | [address] | | | | | | | | +--------+ + + + + | 09/15/ | Appointment | Oncology | Sterling Thomas, | | | 2017 | | | MD [address] | | | | | | [place] | | | | | | [address] | | | | | | [phone] | | | | | | | [...] | + +--------+ + + | * [facility]cology [facility] - | Routin | Squamous cell | Ordered: 06/25/2018 | | AMB Referral | e | carcinoma of larynx | | | | | (HCC) | | + +--------+ + + as of this encounter Results PET CT Skull Base [...] + + | Performing | Address | City[facility] | Phone Number | | Organization | [...]
--- OUTSIDE RECORDS SUMMARY | ~2018-08-25 | XMS | Encounter Summary ---
Demographics + + + | Address | [address] | | | [place] [address] | + + + | Home Phone [...] + + + | Author | [facility] | | | and Mikeana | + + + | Organization | [facility] | | | and [...] Team Providers + +------+ + | Care Natural Gas Technician Name | Role | Phone | + +------+ + PCP | Unavailable | + +------+ + Encounter Details +--------+ + + + + | Date | Type | Department | Care Team | Description | +--------+ + + + + | 06/25/ | Hospital [facility] | Estefanía Hairston | | | 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 | MED CTR RADIATION | MD Alana [address] | | | | | ONCOLOGY [address] | [address] [place], [place] | | | | | [place], | [address] | | | | | [place] [address] | | | | | | [phone] | | | +--------+ + + + [...] | | | | | ([facility]), Status post | | | | | | | emergency | | | | | | | tracheotomy for | | | | | | | assistance in | | | | | | | breathing ([facility]), | | | | | | | Chronic obstructive | | | | | | | pulmonary disease, | | | | | | | unspecified COPD | | | | | | | type ([facility]) | | | | | | + [...] [place] | | | | | | [address] | | | | | | [phone] | | | | | | | | +--------+ + + + + | 09/15/ | Appointment | Nutrition | Joselin Falcon, | | | 2018 | | | RDN | | +--------+ + + + + as of this encounter Visit Diagnoses Not on filein this encounter"
--- OUTSIDE RECORDS SUMMARY | ~2018-08-25 | XMS | Encounter Summary ---
Demographics + + + | Address | [address] | | | [place] [address] | + + + | Home Phone | | + + + | Preferred Language | Unknown | + + + | Marital Status | Single | + + + | Anglican Affiliation | Unknown | + + + | Race | Unknown | + + + | Ethnic Group | Unknown | + + + Author + + + | Author | [facility] | | | and Mikeana | + + + | Organization | [facility] | | | and [...] Team Providers + +------+ + | Care Director Consumer Name | Role | Phone | + +------+ + | Yeyo Anderson DO | PCP | | + +------+ + Encounter Details +--------+ + + + + | Date | Type | Department | Care Team | Description | +--------+ + + + + | 07/20/ | Hospital | [facility] | Goyo Moe | 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 | J, 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 | | | | ONCOLOGY CLINIC [address] | [address] [place] | (HCC) (Primary Dx); | | | | [address] [place] | [place] [address] | Encounter for | | | | [place] [address] | [phone] | antineoplastic | | | | [phone] | | chemotherapy | +--------+ + + [...] + + + | Blood Pressure | 169/80 | 07/20/20181430 PDT | + + + + | Pulse | 75 | 07/20/20181430 PDT | + + + + | Temperature | 36.8 C (98.2 F) | 07/20/20181430 PDT | + + + + | Respiratory Rate | 20 | 07/20/20181430 PDT | + + + + | Oxygen Saturation | 99% | 07/20/2018 143 PDT | + + + + | [...] | | | | | | ([facility]), Status post | | | | | | | emergency | | | | | | | tracheotomy for | | | | | | | assistance in | | | | | | | breathing ([facility]), | | | | | | | Chronic obstructive | | | | | | | pulmonary disease, | | | | | | | unspecified COPD | | | | | | | type ([facility]) | | | | [...] | | | | | | ([facility]), Encounter for | | [...] + as of this encounter Progress Notes Goyo Moe, PharmD - 07/20/2018 1427 PDTFormatting of this note may be different fr om the original. Clinical Oncology Pharmacy Services Progress Note [facility] Pt. Name/Age/: Crystal Sadler 62 y.o. 1955 CSN: [id number] Date of service: 07/20/2018 Provider: Goyo Moe, SandroD Identifying Statement: Crystal Sadler is a 62 y.o. female from [address] [place] [address], laryngeal cancer. The patient chart and medications were reviewed in detail and the patient was seen and exam ined. Patient was referred to Clinical Oncology Pharmacist for urgent care visit. Assessment and plan: Patient has been experiencing nausea since her first infusion of cisplatin last week (). She was given ondansetron and dexamethasone IV here in the clinic for two days after ch emo. Has been taking lorazepam occasionally, does not feel it works and thinks it is possibl y making her feel worse. Our nursing staff contacted her outpatient pharmacy, ondansetron and olanzapine were never picked up. 1. Ondansetron 16 mg IV today. 2. Ondansetron and olanzapine sent to local pharmacy for diamond picker. 3. Follow up on Thursday for jeferson check. Subjective: The patient chart and medications were reviewed in detail and the patient was seen and exam ined. Crystal Sadler is a 62 y.o. female with head and neck cancer, here for treatment. Crystal presented to our [facility], complaining of ongoing nausea. She has felt so si ck that she is considering "giving up," also expressing idea's of suicide. Important to note her best friend's daughter committed suicide yesterday. Our school social worker and nursing staff are working with her on this. She does not have any plans for follow through on suicide at this time. Patient is not a great historian, initially stated antiemetics made her feel wors e, then simply stated they don't work but don't make things worse. Hard to tell exactly what she is taking and how often. As mentioned above, it appears her brother did not diamond picker her supportive meds as originally planned. She is now staying in the [facility] and will nee d her medications filled locally. PMH: Past Medical History: Diagnosis Date Arthritis [...] Mother Heart attack Father Review of Systems: Constitutional: Reports increased nausea and vomiting over the last week. States she has be en taking the lorazepam and it only helps for a short amount of time. States she does not th ink she has ondansetron, despite prescription being in computer, she states she hasn't heard of it and does not have another medication she is taking for nausea. Reports night sweats. Denies fatigue. Denies high fevers, shaking chills, anorexia, weight loss, or night sweats . Appetite without changes. Ear, Nose, Mouth, Throat: Reports throat pain dramatically increased starting yesterday. St ates it is more difficult to swallow. Denies odynophagia or tinnitus. Cardiovascular: Reports dyspnea with exertion, especially with stairs. Denies shortness of breath, chest pain, palpitations or orthopnea. Respiratory: Reports continued cough with sputum production, clear to brown with occasional streaks of blood. Gastrointestinal: Reports having diarrhea last week for about 3 days, states it was "horrib le". This has improved. Denies abdominal pain, constipation, melena, or bright red blood pe r rectum. Genitourinary: Denies hematuria or dysuria. Musculoskeletal: Joint pain continues, unchanged. Neurologic: Denies headache, visual changes, or numbness/tingling of the extremities. Endocrine: Denies peripheral edema or heat/cold intolerance. Hematologic: Denies spontaneous bruising or bleeding. Integumentary: Denies rash, wounds or other skin concerns. Pain: 4/10 throat pain at this time. Review of systems as above, otherwise negative Medications: Current Outpatient Prescriptions Medication Sig albuterol [...] needed. (Patient not taking: Reported on 07/15/2018) levoFLOXacin (LEVAQUIN) 500 mg tablet Take 1 tablet by mouth Daily. LORazepam (ATIVAN) 1 mg tablet Take 1 tablet by mouth every 6 hours as needed (Nausea/V omiting). Misc. Devices (COMMODE BEDSIDE) MISC 1 Application by Does not apply route as needed. ondansetron (ZOFRAN) 8 MG tablet Take 1 tablet by mouth every 8 hours as needed (Nausea /Vomiting). No current facility-administered medications for this encounter. Facility-Administered Medications Ordered in Other Encounters Medication ondansetron (ZOFRAN) 16 mg in sodium chloride 0.9% 50 mL IVPB Allergies: Allergies Allergen Reactions Codeine Shortness Of Breath Penicillins Other (See Comments) unknown Vitals: on Temp :No Data Recorded No intake or output data in the 24 hours ending 07/20/18 1427 Wt. Current: Diagnostic studies: Available data and images were reviewed personally. See reports. Significant results and findings are addressed here or in the Assessment and Plan. No results for input(s): WBC, HGB, HCT, PLT in the last 168 hours. Recent Labs Lab 07/16/18 1052 CREA 0.93 Imaging: No results found. Electronically signed by: Goyo Moe, SandroD 07/20/2018 14:27 Referring Provider: Dr Thomas Supervising Provider: Dr Andres in this encounter Plan of Treatment +--------+ + + + + | Date | Type | Specialty | Care Team | Description | +--------+ + + + + | 08/26/ | Appointment | Radiation Oncology | Estefanía Hairston | | | 2017 | | | MD Alana [address] | | | | | | [place] | | | | | | [address] | | | | | | | | +--------+ + + + + | 09/15/ | Appointment | Oncology | Sterling Thomas, | | | 2017 | | | [address] | | | | | | [place] | | | | | | [address] | | | | | | [phone] | | | | | | | [...]
--- OUTSIDE RECORDS SUMMARY | ~2018-08-25 | XMS | Encounter Summary ---
Demographics + + + | Address | [address] | | | [place] [address] | + + + | Home Phone | | + + + | Preferred Language | Unknown | + + + | Marital Status | Single | + + + | Congregational Affiliation | Unknown | + + + | Race | Unknown | + + + | Ethnic Group | Unknown | + + + Author + + + | Author | [facility] | | | and Mikeana | + + + | Organization | [facility] | | | and [...] Team Providers + +------+ + | Care Child Care Associate Name | Role | Phone | [...] neoplasm of | [address] | | | | | larynx, | [address] | [place], | | | | | unspecified | [place], | [place] [address] | | | | | (HCC) | [place] | Phone: | | | | | Procedures | [address] | [phone] | | | | | VA IV | Phone: | Fax: | | | | | INFUSION, | [phone] | [phone] | | | | | HYDRATION, | Fax: | | | | | | 31-60 MIN | [phone] | | | | | | VA IV | | | | | | | INFUSION, | | | | | | | HYDRATION, | | | | | | | EA ADD HOUR | | | | | | | VA | | | | | | | ONDANSETRON | | | | | | | ORAL VA | | | | | | | ORAL | | | | | | | DEXAMETHASON | | | | | | | E, .25 MG | | | | | | | VA | | | | | | | CHEMOTHERAPY | | | | | | | DRUG VA | | | | | | | CISPLATIN 10 | | | | | | | MG | | | | | | | INJECTION | | | | | | | VA ADRENALIN | | | | | | | EPINEPHRINE | | | | | | | INJECT, .1 | | | | | | | MG VA | | | | | | | DIPHENHYDRAM | | | | | | | INE HCL | | | | | | | INJECTIO, 50 | | | | | | | MG VA | | | | | | | METHYLPREDNI | | | | | | | SOLONE | | | | | | | INJECTION, | | | | | | | 125 MG VA | | | | | | | ALBUTEROL | | | | | | | COMP CON, 1 | | | | | | | MG VA | | | | | | | ALBUTEROL | | | | | | | NON-COMP | | | | | | | CON, 1 MG | | | | | | | VA | | | | | | | INJECTION, | | | | | | | FAMOTIDINE, | | | | | | | 20 MG VA | | | | | | | NORMAL | | | | | | | SALINE | | | | | | | SOLUTION | | | | | | | INFUS, 500 | | | | | | | ML VA | | | | | | | NORMAL | | | | | | | SALINE | | | | | | | SOLUTION | | | | | | | INFUS, 250 | | | | | | | ML VA | | | | | | | STERILE | | | | | | | WATER/SALINE | | | | | | | , 10 ML VA | | | | | | | CHEMOTHER, | | | | | | | IV PUSH,EA | | | | | | | ADD DRUG VA | | | | | | | CHEMOTHER, | | | | | | | IV INFUSION, | | | | | | | 1 HR VA | | | | | | | CHEMOTHER, | | | | | | | IV INFUSION, | | | | | | | EA HR VA | | | | | | | CHEMOTHER,NO | | | | | | | N-HORMONE | | | | | | | ANTI-NEOPL, | | | | | | | SUB-Q/IM VA | | | | | | | [...] + + | 08/10/ | Hospital | [facility] | Sterling Thomas, | 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 | | | | INFUSION [address] | [place], [place] | ([facility]); Encounter for | | | | [place] [address] [place], | [address] | antineoplastic | | | | [place] [address] | [phone] | chemotherapy | | | | [phone] | | | +--------+ + + + [...] | | | | | | ([facility]), Status post | | | | | | | emergency | | | | | | | tracheotomy for | | | | | | | assistance in | | | | | | | breathing ([facility]), | | | | | | | Chronic obstructive | | | | | | | pulmonary disease, | | | | | | | unspecified COPD | | | | | | | type ([facility]) | | | | | | + [...] [place] | | | | | | [address] | | | | | | [phone] | | | | | | | [...]
--- OUTSIDE RECORDS SUMMARY | ~2018-08-25 | XMS | Encounter Summary ---
Demographics + + + | Address | [address] | | | [place] [address] | + + + | Home Phone | | + + + | Preferred Language | Unknown | + + + | Marital Status | Single | + + + | Jew Affiliation | Unknown | + + + | Race | Unknown | + + + | Ethnic Group | Unknown | + + + Author + + + | Author | [facility] | | | and [place] | + + + | Organization | [facility] | | | and [...] Team Providers + +------+ + | Care Security Technician Name | Role | Phone | + +------+ + | Yeyo Anderson DO | PCP | | + +------+ + Encounter Details +--------+ + + + + | Date | Type | Department | Care Team | Description | +--------+ + + + + | 08/10/ | Hospital | [facility] | Sterling Thomas, | 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 | MD [address] | carcinoma of larynx | | | | [facility] CL[facility] [address] | [place] | (HCC) (Primary Dx); | | | | [address] | [address] | Elevated LFTs | | | | [place] [address] | [phone] | | | | | [phone] | | | +--------+ + + + [...] + + + | Blood Pressure | 154/84 | 08/10/2018841 PDT | + + + + | Pulse | 78 | 08/10/2018841 PDT | + + + + | Temperature | 36.8 C (98.3 F) | 08/10/2018841 PDT | + + + + | Respiratory Rate | 18 | 08/10/2018841 PDT | + + + + | Oxygen Saturation | 93% | 08/10/2018841 PDT | + + + + | Inhaled Oxygen | - | - | | Concentration | | | + + + + | Weight | 66.3 kg (146 lb 2.6 | 08/10/2018832 PDT | | | oz) | | + + + + | Height | - | - | + + + + | Body Mass Index | 27.62 | 08/10/2018832 PDT | + + + + in this encounter Medications at Time of Discharge + + + +---------+ + + | Medication | Sig. | Disp. | Refills | Start | End Date | | | | | | Date | | + + + +---------+ + + | albuterol 2.5 mg/3 | Take 3 mLs by | 60 vial | 0 | 07/28/20 | | | mL nebulizer | nebulization [...] | | | | | | | ([facility]), Status post | | | | | | | emergency | | | | | | | tracheotomy for | | | | | | | assistance in | | | | | | | breathing ([facility]), | | | | | | | Chronic obstructive | | | | | | | pulmonary disease, | | | | | | | unspecified COPD | | | | | | | type ([facility]) | | | | | | + [...] encounter Progress Notes Sterling Thomas MD - 08/10/2018 0821 PDTFormatting of this note may be different from the original. Hematology-Oncology Progress Note [facility] Pt. Name/Age/: Crystal Sadler 62 y.o. 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 Assessment and plan: Patient's liver function test has steadily risen since starting her combined modality thera py, denies any prior history of liver issues or new medications or exposures. Most likely r elated to the cis-sk[place], discussed stopping the therapy versus backing off to a lower dos e weekly basis rather than continuing with the very high dose every 3 weeks [address] originally [address] anned. 1. Switch to weekly cisplatin along with continued daily radiation. 2. Continued monitoring of blood counts, LFTs. Subjective: The patient chart and medications were reviewed in detail and the patient was seen and exam ined. Crystal Sadler is a 62 y.o. female with head and neck cancer here for treatment. Patient's most recent chemotherapy infusions are as follows: Chemotherapy 07/13/2018 Day, Cycle Day 1, Cycle 1 CISplatin (PLATINOL) IV 100 mg/m2 Patient's main complaint is erythema where she is getting radiation, painful and dry. Stil l maintaining her weight, no fevers or sweats, no further hemoptysis. Shortness of breath u nchanged, unfortunately still smoking. Stopped taking her doxycycline due to nausea and vom iting after just 3 days. PMH: Past Medical History: Diagnosis Date Arthritis [...] REVIEW OF SYSTEMS Constitutional: Reports energy level remains low. Reports nausea and vomiting, better since stopping antibiotics. Denies high fevers, shaking chills, anorexia, weight loss, or night s weats. Appetite without changes. Ear, Nose, Mouth, Throat: Reports sores down by throat. Reports dysphagia with solid foods. Denies odynophagia, or tinnitus. Cardiovascular: Reports shortness of breath and dyspnea with exertion. Denies chest pain, p alpitations or orthopnea. Respiratory: Reports cough with sputum production. Denies hemoptysis. Gastrointestinal: Denies abdominal pain, constipation, diarrhea, melena, or bright red bloo d per rectum. Genitourinary: Denies hematuria or dysuria. Musculoskeletal: Reports joint pain continues, unchanged. Neurologic: Reports blurry vision, states this has gotten bad. Reports intermittent mild nu mbness/tingling in feet, somewhat worse than previous. Denies headache. Endocrine: Denies peripheral edema or heat/cold intolerance. Hematologic: Denies spontaneous bruising or bleeding. Integumentary: Reports erythema and peeling skin on neck. Painful. Pain: 3/10 pain in throat today. Note: Here for follow up, labs and 6 hour treatment. My chart: Active Medications: Current Outpatient Prescriptions Medication Sig albuterol 2.5 mg/3 mL nebulizer solution Take 3 mLs by nebulization every 4 hours as ne eded for Wheezing or Shortness of Breath. Cholecalciferol (VITAMIN D3 PO) Take by mouth. diazePAM (VALIUM) 5 mg tablet Take 1 tablet by mouth nightly as needed. zlwfniymedYBCEY-avtvdryzy-ohhtkbjm & magnesium hydroxide-simethicone (MAGIC MOUTHWASH) Take 5 [...] needed. (Patient not taking: Reported on 08/03/2018) Misc. Devices (COMMODE BEDSIDE) MISC 1 Application by Does not apply route as needed. OLANZapine (ZYPREXA) 5 mg tablet Take 1 tablet by mouth nightly. starting Day 1 of chem otherapy. (Patient not taking: Reported on 08/10/2018) ondansetron (ZOFRAN) 8 MG tablet Take 1 tablet by mouth every 8 hours as needed for Horacio sea. May take twice daily for two days after chemo; or one tab every eight hours as needed f or nausea No current facility-administered medications for this encounter. Allergies: Allergies Allergen Reactions Codeine Shortness Of Breath Penicillins Other (See Comments) unknown Vitals: Temp: 36.8 C (98.3 F) BP: 154/84 Pulse: 78 Resp: 18 SpO2: 93 % on Temp :Temp Av.8 C (98.3 F) Min: 36.8 C (98.3 F) Max: 36.8 C (98.3 F) No intake or output data in the 24 hours ending 08/10/18 0922 Wt. Current: Weight: 66.3 kg (146 lb 2.6 oz) Physical Exam: Exam: ECOG Performance Status: 1 2 General: The patient is alert and oriented. No acute distress. Looks chronically ill. HEENT: PERRL, Oral mucosa dry. Neck is supple. Non-icteric. Skin over the neck erythemat ous without ulceration. Cardiovascular: Regular rate and rhythm, no murmur or gallops.. Extremities: Nontender, no erythema, no edema. Skin: No rashes, bruising, or petechiae. See above. Lymph: No palpable nodes in the neck, supraclavicular fossa, . Psychiatric: Normal mood and affect. Appropriate. Diagnostic studies: Available data and image reports were reviewed personally. See reports. Significant resul ts and findings are addressed here or in the Assessment and Plan. Recent Labs Lab 08/10/18 0813 WBC 5.4 HGB 14.2 HCT 42.8 PLT Adequate | 247 Recent Labs Component Latest Ref Rng & Units 07/13/2018 07/26/2018 08/03/2018 0824 1302 0816 NA 136 - 149 mmol/L 138 134 (L) 133 (L) K 3.5 - 5.1 mmol/L 4.0 4.0 4.3 Chloride 98 - 109 mmol/L 104 101 101 Carbon dioxide 24 - 31 mmol/L 25 27 26 ANION GAP 3 - 16 mmol/L 9 6 6 GLUCOSE 70 - 109 mg/dL 124 (H) 376 (H) 237 (H) BUN 7 - 18 mg/dL 15 8 9 Creatinine 0.60 - 1.30 mg/dL 0.77 0.70 0.62 EGFR IF NOT >=60 mL/min/1.73m2 >60 >60 >60 Calcium 8.3 - 10.5 mg/dL 9.1 8.9 9.1 ALBUMIN 3.2 - 5.0 g/dL 3.7 3.4 3.1 (L) Bilirubin Total (Calculated) 0.1 - 1.5 mg/dL 0.8 0.7 0.5 Total protein 6.0 - 7.8 g/dL 7.4 6.6 6.9 AST (SGOT) (REF) 10 - 42 U/L 34 52 (H) 141 (H) ALT (SGPT) (REF) 6 - 45 U/L 39 127 (H) 175 (H) ALK PHOS 40 - 110 U/L 65 88 82 GLOBULIN 2.1 - 3.8 g/dL 3.7 3.2 3.8 Albumin/Globulin ratio 0.8 - 2.0 1.0 1.1 0.8 BUN/CREA 19.5 11.4 14.5 Component Latest Ref Rng & Units 08/10/2018 0813 NA 136 - 149 mmol/L 132 (L) K 3.5 - 5.1 mmol/L 4.2 Chloride 98 - 109 mmol/L 100 Carbon dioxide 24 - 31 mmol/L 25 ANION GAP 3 - 16 mmol/L 7 GLUCOSE 70 - 109 mg/dL 234 (H) BUN 7 - 18 mg/dL 10 Creatinine 0.60 - 1.30 mg/dL 0.56 (L) EGFR IF NOT >=60 mL/min/1.73m2 >60 Calcium 8.3 - 10.5 mg/dL 9.3 ALBUMIN 3.2 - 5.0 g/dL 3.2 Bilirubin Total (Calculated) 0.1 - 1.5 mg/dL 0.4 Total protein 6.0 - 7.8 g/dL 8.1 (H) AST (SGOT) (REF) 10 - 42 U/L 132 (H) ALT (SGPT) (REF) 6 - 45 U/L 206 (H) ALK PHOS 40 - 110 U/L 99 GLOBULIN 2.1 - 3.8 g/dL 4.9 (H) Albumin/Globulin ratio 0.8 - 2.0 0.7 (L) BUN/CREA 17.9 Electronically signed by: Sterling Thomas MD 08/10/2018 9:22 CC: Yeyo Anderson DO Total time in face to face discussion with the patient and family was 25 minutes; more than 50% of the time was spent in counseling and coordination of care. Portions of this chart may have been created with [employer] voice recognition software. Occasi onal wrong-word or [...] | | | | | | [place] | | | | | | [id number] | | | | | | | | +--------+ + + + + | 09/15/ | Appointment | Oncology | Sterling Thomas, | | | 2017 | | | MD [address] | | | | | | [place] | | | | | | [address] | | | | | | [phone] | | | | | | | [...] in the | | | | | ([facility]) | results section. | + +--------+ + + + | CBC WITH | STAT | 08/10/2018 | Squamous cell | Results for this | | DIFFERENTIAL | | 0813 PDT | carcinoma of larynx | procedure are in the | | | | | ([facility]) | results section. | + +--------+ + + + | MAGNESIUM | STAT | 08/10/2018 | Squamous cell | Results for this | | | | 0813 PDT | carcinoma of larynx | procedure are in the | | | | | ([facility]) | results section. | + +--------+ + + + | COMPREHENSIVE | STAT | 08/10/2018 | Squamous cell | Results for this | | METABOLIC PANEL | | 0813 PDT | carcinoma of larynx | procedure are in the | | | | | ([facility]) | results section. | + +--------+ + + + in this encounter Results Slide Review, Peripheral Smear (08/10/2018812) + + [...] + | [facility] | [address] | [place] | [phone] | | [facility] | | [address] | | | - LABORATORY | | | | + + + + + | [facility] | [address] | [place] | | | [facility] | | [address] | | | - LABORATORY | | | | + + + + + Magnesium (08/10/2018812) + +-------+ + + | Component | Value | Ref Range | Performed At | + +-------+ + + | Magnesium | 1.8 | 1.8 - 2.5 mg/dL | [facility] | | | | | [facility] | | [...] [address] | [place] | [phone] | | [facility] | | [address] | | | - LABORATORY | | | | + + + + + | [facility] | [address] | [place] | | | [facility] | | [address] | | | - LABORATORY | | | | + + + + + CBC with Differential (08/10/2018812) + + + + + | Component | Value | Ref Range | Performed At | + + + + + | WBC | 5.4 | 4.0 - 11.0 K/uL | [facility] | | | | | [facility] | | | | | CENTER - | | | | | LABORATORY | + + + + + | RBC | 4.74 | 3.70 - 5.20 M/uL | [facility] | | | | | [facility] | | | | | CENTER - | | | | | LABORATORY | + + + + + | Hgb | 14.2 | 11.5 - 16.0 g/dL | [facility] | | | | | [facility] | | | | | CENTER - | | | | | LABORATORY | + + + + + | Hct | 42.8 | 34.0 - 47.0 % | [facility] | | | | | [facility] | | | | | CENTER - | | | | | LABORATORY | + + + + + | MCV | 90.3 | 83.0 - 101.0 fL | [facility] | | | | | [facility] | | | | | CENTER - | | | | | LABORATORY | + + + + + | MCH | 30.0 | 28.0 - 35.0 pg | [facility] | | | | | [facility] | | | | | CENTER - | | | | | LABORATORY | + + + + + | MCHC | 33.2 | 32.0 - 36.0 g/dL | [facility] | | | | | [facility] | | | | | CENTER - | | | | | LABORATORY | + + + + + | RDW-CV | 14.0 | <15.0 % | [facility] | | | | | [facility] | | | | | CENTER - | | | | | LABORATORY | + + + + + | RDW-SD | 46.6 (H) | 35.1 - 46.3 fL | [facility] | | | | | [facility] | | | | | CENTER - | | | | | LABORATORY | + + + + + | Platelet Count | 247 | 140 - 440 K/uL | [facility] | | | | | [facility] | | | | | CENTER - | | | | | LABORATORY | + + + + + | MPV | 9.2 | 6.5 - 12.4 fL | [facility] | | | | | [facility] | | | | | CENTER - | | | | | LABORATORY | + + + + + | % Neutrophils | 39.8 (L) | 45.0 - 82.0 % | [facility] | | | | | [facility] | | | | | CENTER - | | | | | LABORATORY | + + + + + | % Lymphocytes | 43.0 | 20.0 - 45.0 % | [facility] | | | | | [facility] | | | | | CENTER - | | | | | LABORATORY | + + + + + | % Monocytes | 15.4 (H) | 4.0 - 12.0 % | [facility] | | | | | [facility] | | | | | CENTER - | | | | | LABORATORY | + + + + + | % Eosinophils | 0.6 | 0.0 - 5.0 % | [facility] | | | | | [facility] | | | | | CENTER - | | | | | LABORATORY | + + + + + | % Basophils | 0.6 | 0.0 - 1.0 % | [facility] | | | | | [facility] | | | | | CENTER - | | | | | LABORATORY | + + + + + | % Immature | 0.6 (H)Comment: | 0.0 - 0.4 % | [facility] | | granulocytes | Preliminary studIes have | | [facility] | | | indicated the IG% | | CENTER - | | | and/or IG# show promise | | LABORATORY | | | as an early screen for | | | | | infection. | | | + + + + + | Absolute Neutrophils | 2.16 | 1.80 - 8.50 K/uL | [facility] | | | | | [facility] | | | | | CENTER - | | | | | LABORATORY | + + + + + | Absolute Lymphocytes | 2.32 | 0.60 - 3.20 K/uL | [facility] | | | | | [facility] | | | | | CENTER - | | | | | LABORATORY | + + + + + | Absolute Monocytes | 0.83 | 0.00 - 1.00 K/uL | [facility] | | | | | [facility] | | | | | CENTER - | | | | | LABORATORY | + + + + + | Absolute Eosinophils | 0.03 | 0.00 - 0.40 K/uL | [facility] | | | | | [facility] | | | | | CENTER - | | | | | LABORATORY | + + + + + | Absolute Basophils | 0.03 | 0.00 - 0.10 K/uL | [facility] | | | | | [facility] | | | | | CENTER - | | | | | LABORATORY | + + + + + | Absolute Imm. | 0.03 | 0.00 - 0.03 K/uL | [facility] [...] + | [facility] | [address] | [place] | [phone] | | [facility] | | [address] | | | - LABORATORY | | | | + + + + + | [facility] | [address] | [place] | | | [facility] | | [address] | | | - LABORATORY | | | | + + + + + Comprehensive Metabolic Panel (08/10/2018812) + + + + + | Component | Value | Ref Range | Performed At | + + + + + | NA | 132 (L) | 136 - 149 mmol/L | [facility] | | | | | [facility] | | | | | CENTER - | | | | | LABORATORY | + + + + + | K | 4.2 | 3.5 - 5.1 mmol/L | [facility] | | | | | [facility] | | | | | CENTER - | | | | | LABORATORY | + + + + + | CL | 100 | 98 - 109 mmol/L | [facility] [...] + + + + | GLUCOSE | 234 (H) | 70 - 109 mg/dL | [facility] | | | | | [facility] | | | | | CENTER - | | | | | LABORATORY | + + + + + | BUN | 10 | 7 - 18 mg/dL | [facility] | | | | | [facility] | | | | | CENTER - | | | | | LABORATORY | + + + + + | Creatinine, | 0.56 (L) | 0.60 - 1.30 mg/dL | [facility] | | Serum/Plasma | | | [facility] | | | | | CENTER - | | | | | LABORATORY | + + + + + | eGFR if not | >60Comment: GLOMERULAR | >=60 mL/min/1.73m2 | [facility] | | [place] | FILTRATION | | [facility] | | | RATE,ESTIMATED mL/min | | CENTER - | | | /1.56e8Ybqy than 60 | | LABORATORY | | [...] + + + + | CALCIUM | 9.3 | 8.3 - 10.5 mg/dL | [facility] | | | | | [facility] | | | | | CENTER - | | | | | LABORATORY | + + + + + | ALBUMIN | 3.2 | 3.2 - 5.0 g/dL | [facility] | | | | | [facility] | | | | | CENTER - | | | | | LABORATORY | + + + + + | Bilirubin Total | 0.4Comment: This is an | 0.1 - 1.5 mg/dL | [facility] | | | appended report. These | | [facility] | | | results have been | | CENTER - | | | appended to a previously | | LABORATORY | | | preliminary verified | | | | | report. | | | + + + + + | Total protein | 8.1 (H) | 6.0 - 7.8 g/dL | [facility] | | | | | [facility] | | | | | CENTER - | | | | | LABORATORY | + + + + + | AST | 132 (H)Comment: This is | 10 - 42 [...] + + + + | ALT | 206 (H)Comment: This is | 6 - 45 [...] + + + | ALK PHOS | 99Comment: This is an | 40 - 110 U/L | [facility] | | | appended report. These | | [facility] | | | results have been | | CENTER - | | | appended to a previously | | LABORATORY | | | preliminary verified | | | | | report. | | | + + + + + | GLOBULIN | 4.9 (H) | 2.1 - 3.8 g/dL | [facility] | | | | | [facility] | | | | | CENTER - | | | | | LABORATORY | + + + + + | Albumin/Globulin | 0.7 (L) | 0.8 - 2.0 | [facility] | | ratio | | | [facility] | | | | | CENTER - | | | | | LABORATORY | + + + + + | BUN/CREA | 17.9 | | [facility] | | | | | [facility] | | [...] [address] | [place] | [phone] | | [facility] | | [address] | | | - LABORATORY | | | | + + + + + | [facility] | [address] | [place], [place] | | | [facility] | | [address] | | | - LABORATORY | | | | + + + + + in this encounter Visit Diagnoses + + | Diagnosis | + + | Squamous cell carcinoma of larynx (HCC) - Primary | + + | Malignant neoplasm of larynx, unspecified site | + + | Elevated LFTs | + + | Other abnormal blood chemistry | + +"
--- OUTSIDE RECORDS SUMMARY | ~2018-08-25 | XMS | Encounter Summary ---
Demographics + + + | Address | [address] | | | [place] [address] | + + + | Home Phone [...] + + | Author | [facility] | | | and [place] | + + + | Organization | [facility] | | | and [...] Team Providers + +------+ + | Care Geological Engineer Name | Role | Phone | + +------+ + | Yeyo Anderson DO | PCP | | + +------+ + Encounter Details +--------+ + + + + | Date | Type | Department | Care Team | Description | +--------+ + + + + | 06/10/ | [facility] | [facility] | Lida Garcia | | | 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 | MED CTR ACUTE | D, PT [address] | | | | | PHYSICAL THERAPY | [address] [place] | | | | | [address] | [address] | | | | | [place] [address] | | | | | | [phone] | | | +--------+ + + + [...] | | | | | | | ([facility]), Status post | | | | | | | emergency | | | | | | | tracheotomy for | | | | | | | assistance in | | | | | | | breathing ([facility]), | | | | | | | Chronic obstructive | | | | | | | pulmonary disease, | | | | | | | unspecified COPD | | | | | | | type ([facility]) | | | | | [...] | 2018 | | | MD Alana [address] | | | | | | [place], [place] | | | | | | [address] | | | | | | | | +--------+ + + + + | 09/15/ | Appointment | Oncology | Sterling Thomas, | | | 2017 | | | [address] | | | | | | [place] | | | | | | [id number] | | | | | | [phone] | | | | | | | | +--------+ + + + + | 09/15/ | Appointment | Nutrition | Joselin Falcon, | | | 2017 | | | RDN | | +--------+ + + + + as of this encounter Visit Diagnoses Not on filein this encounter"
--- OUTSIDE RECORDS SUMMARY | ~2018-08-25 | XMS | Encounter Summary ---
Demographics + + + | Address | [address] | | | [place] [address] | + + + | Home Phone | | + + + | Preferred Language | Unknown | + + + | Marital Status | Single | + + + | Roman Catholic Affiliation | Unknown | + + + | Race | Unknown | + + + | Ethnic Group | Unknown | + + + Author + + + | Author | [facility] | | | and Mikeana | + + + | Organization | [facility] | [...] Team Providers + +------+ + | Care Riveter Name | Role | Phone | + [...] + + | 07/15/ | Hospital | [facility] | Estefanía Hairston | 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 | MED CTR RADIATION | MD Alana [address] | carcinoma of larynx | | | | ONCOLOGY CLINIC [address] | [place], [place] | ([facility]) (Primary Dx) | | | | [address] [facility] | [address] | | | | | [place] [address] | | | | | | [phone] | | | +--------+ + + + [...] | | | | | | | ([facility]), Status post | | | | | | | emergency | | | | | | | tracheotomy for | | | | | | | assistance in | | | | | | | breathing ([facility]), | | | | | | | Chronic obstructive | | | | | | | pulmonary disease, | | | | | | | unspecified COPD | | | | | | | type ([facility]) | | | | | | + [...] | | | | | | | ([facility]), Encounter for | | | | | [...] | | | | | | | ([facility]), Encounter for | | | | | [...] [address] | | | | | | [place], [place] | | | | | | [id number] | | | | | | | | +--------+ + + + + | 09/15/ | Appointment | Oncology | Sterling Thomas, | | | 2017 | | | MD [address] | | | | | | [place] | | | | | | [address] | | | | | | [phone] | | | | | | | [...]
--- OUTSIDE RECORDS SUMMARY | ~2018-08-25 | XMS | Encounter Summary ---
Demographics + + + | Address | [address] | | | [place] [address] | + + + | Home Phone | | + + + | Preferred Language | Unknown | + + + | Marital Status | Single | + + + | Amish Affiliation | Unknown | + + + | Race | Unknown | + + + | Ethnic Group | Unknown | + + + Author + + + | Author | [facility] | | | and Mikeana | + + + | Organization | [facility] | | | and [...] Providers + +------+ + | Care Wood Carving Lathe Operator Name | Role | Phone | + +------+ + | Yyeo Anderson DO | PCP | | + [...] neoplasm of | [address] | | | | | larynx, | [address] | [place], | | | | | unspecified | [place], | [place] [address] | | | | | (HCC) | [place] | Phone: | | | | | Procedures | [address] | [phone] | | | | | [place] | Phone: | Fax: | | | | | INFUSION, | [phone] | [phone] | | | | | HYDRATION, | Fax: | | | | | | 31-60 MIN | [phone] | | | | | | [place] [...] + + | 07/16/ | Hospital | [facility] | Sterling Thomas, | 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 | | | | INFUSION [address] | [place], [place] | ([facility]); Encounter for | | | | [address] [place], | [address] | antineoplastic | | | | [place] [address] | [phone] | chemotherapy | | | | [phone] | | | +--------+ + + + [...] | | | | | | breathing ([facility]), | | | | | | | Chronic obstructive | | | | | | | pulmonary disease, | | | | | | | unspecified COPD | | | | | | | type ([facility]) | | | | | [...] | | | | | | | ([facility]), Encounter for | | | [...] | | | | | | | ([facility]), Encounter for | | | [...] | | | | | | | ([facility]), Encounter for | | | [...] [address] | | | | | | [place], [place] | | | | | | [address] | | | | | | | | +--------+ + + + + | 09/15/ | Appointment | Oncology | Sterling Thomas, | | | 2017 | | | [address] | | | | | | [place] | | | | | | [address] | | | | | | [phone] | | | | | | | [...] in the | | | | | ([facility]) Encounter for | results section. [...] 0.93 | 0.60 - 1.30 mg/dL | [facility] | | Serum/Plasma | | | [facility] | | | | | CENTER - | | | | | LABORATORY | + + + + + | eGFR if not | >60Comment: GLOMERULAR | >=60 mL/min/1.73m2 | [facility] | | LUXEM[facility]OUR[facility] | FILTRATION | | [facility] | | | RATE,ESTIMATED mL/min | | CENTER - | | | /1.40k2Bfjx than 60 | | LABORATORY | | [...] + + | Performing | Address | City/State[facility] | Phone Number | | Organization | | | | + + + + + | [facility] | [address] | [place], [place] | [phone] | | [facility] | | [address] | | | - LABORATORY | | | | + + + + + | [facility] | [address] | [place] | | | [facility] | | [address] | | | - LABORATORY | | [...]
--- OUTSIDE RECORDS SUMMARY | ~2018-08-25 | XMS | Encounter Summary ---
Demographics + + + | Address | [address] | | | [place] [address] | + + + | Home Phone | | + + + | Preferred Language | Unknown | + + + | Marital Status | Single | + + + | Bahai Affiliation | Unknown | + + + | Race | Unknown | + + + | Ethnic Group | Unknown | + + + Author + + + | Author | [facility] | | | and Mikeana | + + + | Organization | [facility] | | | and Mikeana [...] Team Providers + +------+ + | Care Associate Media Planner Name | Role | Phone | + +------+ + | Yeyo Anderson DO | PCP | | + +------+ + Encounter Details +--------+ + + + + | Date | Type | Department | Care Team | Description | +--------+ + + + + | 08/03/ | Hospital | [facility] | Sterling Thomas, | 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 | MD [address]ero NICOLE | carcinoma of larynx | | | | ONCOLOGY CLINIC [address] | [place], [place] | (HCC) (Primary Dx); | | | | [address] | [address] | Chemotherapy induced | | | | [facility] [place] [address] | [phone] | neutropenia (HCC); | | | | [phone] | | Bronchitis | +--------+ + + + + Social [...] + + + | Blood Pressure | 137/89 | 08/03/2018840 PDT | + + + + | Pulse | 81 | 08/03/2018840 PDT | + + + + | Temperature | 36.6 C (97.8 F) | 08/03/2018840 PDT | + + + + | Respiratory Rate | 20 | 08/03/2018840 PDT | + + + + | Oxygen Saturation | 96% | 08/03/2018840 PDT | + + + + | Inhaled Oxygen | - | - | | Concentration | | | + + + + | Weight | 65.7 kg (144 lb 13.5 | 08/03/2018824 PDT | | | oz) | | + + + + | Height | - | - | + + + + | Body Mass Index | 27.37 | 08/03/2018824 PDT | + + + + in [...] | | | | | | | ([facility]), Status post | | | | | | | emergency | | | | | | | tracheotomy for | | | | | | | assistance in | | | | | | | breathing ([facility]), | | | | | | | Chronic obstructive | | | | | | | pulmonary disease, | | | | | | | unspecified COPD | | | | | | | type ([facility]) | | | | | | + [...] | | | | | | | ([facility]), Encounter for | | | | | [...] encounter Progress Notes Sterling Thomas MD - 08/03/2018 0823 PDTFormatting of this note may be different from the original. Hematology-Oncology Progress Note [facility] Pt. Name/Age/: Crystal Sadler 62 y.o. 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 Assessment and plan: Patient tolerated her first cycle of cis-fort bidwell quite well with no serious aftereffects, but ANC is too low today to safely proceed, especially with her clinical bronchitis. Review ed in detail including neutropenic precautions, will postpone treatment until next week. We also discussed the plan for further chemotherapy, we will have received 200 mg/m of ci splatin him after next week assuming she is treated, unclear whether there is additional faisal efit above that total dose, thus may be able to forego the third planned cycle of treatment. 1. Chemotherapy on hold until next week. 2. Doxycycline as prescribed to the emergency room. Subjective: The patient chart and medications were reviewed in detail and the patient was seen and exam ined. Crystal Sadler is a 62 y.o. female with laryngeal cancer here for chemotherapy. Patient's most recent chemotherapy infusions are as follows: Chemotherapy 07/13/2018 Day, Cycle Day 1, Cycle 1 CISplatin (PLATINOL) IV 100 mg/m2 Patient had minimal acute side effects from her cis-fort bidwell other than nausea, did not lik e the taste of the dissolvable ondansetron, unable to obtain olanzapine through her insuranc e. No Vomiting, denies fevers. Having decreased appetite, mostly liquid diet. Magic mouth wash helping. Had low-volume hemoptysis yesterday, seen in emergency room. Chest x-ray clear, had low-gr arnoldo fever, prescribed doxycycline which she has not yet filled. Phlegm is yellow/green. PMH: Past Medical History: Diagnosis Date Arthritis [...] Systems: REVIEW OF SYSTEMS Constitutional: Reports energy is low. 0/10. Down 3 lbs since 08/02/18. Reports appetite is good, but she can't taste anything. Reports she had a low grade fever of 100.7 yesterday in the ER. Reports nausea. Reports difficulty sleeping, hard to stay asleep. Denies high fever s, shaking chills, anorexia,vomiting, or night sweats. Appetite without changes. Ear, Nose, Mouth, Throat: Reports dysphagia with certain foods. Still able to swallow liqui ds and soft foods. Reports tinnitus continues, unchanged. Denies odynophagia. Cardiovascular: Reports dyspnea with exertion. Reports chest wall pain from coughing. Cl es shortness of breath, palpitations or orthopnea. Respiratory: Reports cough with clear to green sputum production. Woke up yesterday with bl ood in her trach, was seen in ER. Gastrointestinal: Reports constipation. Last BM this morning. Denies abdominal pain, diarr hea, melena, or bright red blood per rectum. Genitourinary: Denies hematuria or dysuria. Musculoskeletal: Reports intermittent joint pain continues, unchanged. States she has also been feeling achy all over lately. Neurologic: Reports intermittent headaches and blurry vision. Reports intermittent numbness in feet since starting treatments. Endocrine: Reports cold things are painful to swallow. Denies peripheral edema Hematologic: Denies spontaneous bruising or bleeding. Integumentary: Denies rash, wounds or other skin concerns. Pain: Denies pain at this time. Note: Here for follow up, labs and 6 hour treatment. My chart: Active Medications: Current Outpatient Prescriptions Medication Sig albuterol 2.5 mg/3 mL nebulizer solution Take 3 mLs by nebulization every 4 hours as ne eded for Wheezing or Shortness of Breath. Cholecalciferol (VITAMIN D3 PO) Take by mouth. diazePAM (VALIUM) 5 mg tablet Take 1 tablet by mouth nightly as needed. mfcrqwihxfGMJHE-ebtkfkhez-bvwprwgk & magnesium hydroxide-simethicone (MAGIC MOUTHWASH) Take 5 mLs by mouth every 4 hours as needed for Pain (Can swish and swallow, or swish and sp it). (RECIPE = 1:1:1 mixture of Maalox, diphenhydrAMINE, viscous lidocaine) doxycycline (VIBRAMYCIN) 100 mg tablet Take 1 tablet by mouth 2 times daily for 10 days . Humidifiers (COOL MIST HUMIDIFIER 1 GALLON) MISC 1 applicator by Does not apply route a s needed. HYDROcodone-acetaminophen (NORCO) 5-325 mg per tablet Take 1-2 tablets by mouth every 4 hours as needed. (Patient not taking: Reported on 08/03/2018) LORazepam (ATIVAN) 1 mg tablet Take 1 tablet by mouth every 6 hours as needed (Nausea/V omiting). Misc. Devices (COMMODE BEDSIDE) MISC 1 Application by Does not apply route as needed. OLANZapine (ZYPREXA) 5 mg tablet Take 1 tablet by mouth nightly. starting Day 1 of chem otherapy. (Patient not taking: Reported on 08/03/2018) ondansetron (ZOFRAN ODT) 8 mg disintegrating tablet Take 1 tablet by mouth every 8 hour s as needed for Nausea. (Patient not taking: Reported on 08/03/2018) ondansetron (ZOFRAN) 8 MG tablet Take 1 tablet by mouth every 8 hours as needed for Horacio sea. May take twice daily for two days after chemo; or one tab every eight hours as needed f or nausea No current facility-administered medications for this encounter. Allergies: Allergies Allergen Reactions Codeine Shortness Of Breath Penicillins Other (See Comments) unknown Vitals: Temp: 36.6 C (97.8 F) BP: 137/89 Pulse: 81 Resp: 20 SpO2: 96 % on Temp :Temp Av.6 C (97.8 F) Min: 36.6 C (97.8 F) Max: 36.6 C (97.8 F) No intake or output data in the 24 hours ending 08/03/18 0855 Wt. Current: Weight: 65.7 kg (144 lb 13.5 oz) Physical Exam: Exam: ECOG Performance Status: 2 General: The patient is alert and oriented. No acute distress. HEENT: PERRL, trach in place Non-icteric. Respiratory: Scattered wheezes, no rhonchi Skin: No rashes, bruising, or petechiae. Neurological: No focal deficits noted. Speech fluent. Psychiatric: Normal mood and affect. Appropriate. Diagnostic studies: Available data and image reports were reviewed personally. See reports. Significant resul ts and findings are addressed here or in the Assessment and Plan. Recent Labs Lab 08/03/18 0816 WBC 3.3* HGB 13.3 HCT 40.2 PLT 397 Absolute granulocyte count 1100 Recent Labs Lab 08/03/18 0816 NA 133* K 4.3 CL 101 CO2 26 BUN 9 CREA 0.62 GLU 237* CALCIUM 9.1 ALBUMIN 3.1* Imaging: Recent Results (from the past 360 hour(s)) XR Chest AP Portable Narrative CLINICAL INFORMATION: FEVER (9 WEEKS TO 74 YEARS) BLOOD-STREAKED SPUTUM. COMPARISON: Radiograph 09/14/2015. PET/CT 07/01/2018 with midlumbar O it is FINDINGS: Portable frontal chest radiograph. Tracheostomy tube. Lungs: No focal airspace disease, pleural effusion, or pneumothorax. Minimal atelectasis/scarring at the lung bases. Heart/mediastinum: Cardiac silhouette is of normal size. Central pulmonary vasculature has a normal appearance. Bones: No acute osseous abnormality appreciated. IMPRESSION - No acute disease. Dictated and Signed by: Rodriguez Meek MD Electronically signed: 08/02/2018 8:37 AM Electronically signed by: Sterling Thomas MD 08/03/2018 8:55 CC: Yeyo Anderson DO Portions of this chart may have been created with [employer] voice recognition software. Occasi onal wrong-word or [...] [place] | | | | | | [address] | | | | | | | | +--------+ + + + + | 09/15/ | Appointment | Oncology | Sterling Thomas, | | | 2017 | | | MD [address] | | | | | | [place] | | | | | | [address] | | | | | | [phone] | | | | | | | [...] in the | | | | | ([facility]) | results section. | + +--------+ + + + | MAGNESIUM | STAT | 08/03/2018 | Squamous cell | Results for this | | | | 0816 PDT | carcinoma of larynx | procedure are in the | | | | | ([facility]) | results section. | + +--------+ + + + | COMPREHENSIVE | STAT | 08/03/2018 | Squamous cell | Results for this | | METABOLIC PANEL | | 0816 PDT | carcinoma of larynx | procedure are in the | | | | | (HCC) | results section. | + +--------+ + + + in this encounter Results Magnesium (08/03/2018815) + +---------+ + + | Component | [...] + | [facility] | [address] | [place] | [phone] | | [facility] | | [address] | | | - LABORATORY | | | | + + + + + | [facility] | [address] | [place] | | | [facility] | | [address] | | | - LABORATORY | | | | + + + + + CBC with Differential (08/03/2018815) + + + + + | Component | Value | Ref Range | Performed At | + + + + + | WBC | 3.3 (L) | 4.0 - 11.0 K/uL | [facility] | | | | [facility] | | | | [facility] - | | | | | LABORATORY | + + + + + | RBC | 4.38 | 3.70 - 5.20 M/uL | [facility] | | | | | [facility] | | | | | [facility] - | | | | | LABORATORY | + + + + + | Hgb | 13.3 | 11.5 - 16.0 g/dL | [facility] | | | | | [facility] | | | | | [facility] - | | | | | LABORATORY | + + + + + | Hct | 40.2 | 34.0 - 47.0 % | [facility] | | | | | [facility] | | | | | [facility] - | | | | | LABORATORY | + + + + + | MCV | 91.8 | 83.0 - 101.0 fL | [facility] [...] + + + + | MCHC | 33.1 | 32.0 - 36.0 g/dL | [facility] | | | | | [facility] | | | | | [facility] - | | | | | LABORATORY | + + + + + | RDW-CV | 14.1 | <15.0 % | [facility] | | | | | [facility] | | | | | [facility] - | | | | | LABORATORY | + + + + + | RDW-SD | 47.5 (H) | 35.1 - 46.3 fL | [facility] | | | | | [facility] | | | | | CENTER - | | | | | LABORATORY | + + + + + | Platelet Count | 397 | 140 - 440 K/uL | [facility] | | | | | [facility] | | | | | CENTER - | | | | | LABORATORY | + + + + + | MPV | 9.3 | 6.5 - 12.4 fL | [facility] | | | | | [facility] | | | | | [facility] - | | | | | LABORATORY | + + + + + | % Neutrophils | 34.3 (L) | 45.0 - 82.0 % | [facility] | | | | | [facility] | | | | | [facility] - | | | | | LABORATORY | + + + + + | % Lymphocytes | 44.1 | 20.0 - 45.0 % | [facility] | | | | | [facility] | | | | | CENTER - | | | | | LABORATORY | + + + + + | % Monocytes | 18.6 (H) | 4.0 - 12.0 % | [facility] | | | | | [facility] | | | | | C[facility] - | | | | | LABORATORY | + + + + + | % Eosinophils | 1.8 | 0.0 - 5.0 % | [facility] [...] + + + | Absolute Neutrophils | 1.14 (L) | 1.80 - 8.50 K/uL | [facility] | | | | | [facility] | | [facility] | | [facility] - | | | | | LABORATORY | + + + + + | Absolute Lymphocytes | 1.47 | 0.60 - 3.20 K/uL | [facility] | | | | | [facility] | | | | | [facility] - | | | | | LABORATORY | + + + + + | Absolute Monocytes | 0.62 | 0.00 - 1.00 K/uL | [facility] | | | | | [facility] | | | | | [facility] - | | | | | LABORATORY | + + + + + | Absolute Eosinophils | 0.06 | 0.00 - 0.40 K/uL | [facility] [...] + | [facility] | [address] | [place], [place] | [phone] | | [facility] | | [address] | | | - LABORATORY | | | | + + + + + | [facility] | [address] | [place], [place] | | | [facility] | | [address] | | | - LABORATORY | | | | + + + + + Comprehensive Metabolic Panel (08/03/2018815) + + + + + | Component | Value | Ref Range | Performed At | + + + + + | NA | 133 (L) | 136 - 149 mmol/L | [facility] | | | | | [facility] | | | | | [facility] - | | | | | LABORATORY | + + + + + | K | 4.3 | 3.5 - 5.1 mmol/L | [facility] [...] + + + + | CO2 | 26 | 24 - 31 mmol/L | [facility] [...] + + + + | GLUCOSE | 237 (H) | 70 - 109 mg/dL | [facility] | | | | | [facility] | | | | | [facility] - | | | | | LABORATORY | + + + + + | BUN | 9 | 7 - 18 mg/dL | [facility] | | | | | [facility] | | | | | CENTER - | | | | | LABORATORY | + + + + + | Creatinine, | 0.62 | 0.60 - 1.30 mg/dL | [facility] | | Serum/Plasma | | | [facility] | | | | | CENTER - | | | | | LABORATORY | + + + + + | eGFR if not | >60Comment: GLOMERULAR | >=60 mL/min/1.73m2 | [facility] | | [place] | FILTRATION | | [facility] | | | RATE,ESTIMATED mL/min | | CENTER - | | | /1.76l9Ymey than 60 | | LABORATORY | | [...] 9.1 | 8.3 - 10.5 mg/dL | [facility] | | | | | [facility] | | | | | CENTER - | | | | | LABORATORY | + + + + + | ALBUMIN | 3.1 (L) | 3.2 - 5.0 g/dL | [facility] | | | | | [facility] | | | | | CENTER - | | | | | LABORATORY | + + + + + | Bilirubin Total | 0.5Comment: This is an | 0.1 - 1.5 mg/dL | [facility] | | | appended report. These | | [facility] | | | results have been | | CENTER - | | | appended to a previously | | LABORATORY | | | preliminary verified | | | | | report. | | | + + + + + | Total protein | 6.9 | 6.0 - 7.8 g/dL | [facility] | | | | | [facility] | | | | | CENTER - | | | | | LABORATORY | + + + + + | AST | 141 (H)Comment: This is | 10 - 42 [...] + + + + | ALT | 175 (H)Comment: This is | 6 - 45 [...] + + + | ALK PHOS | 82Comment: This is an | 40 - 110 U/L | [facility] | | | appended report. These | | [facility] | | | results have been | | CENTER - | | | appended to a previously | | LABORATORY | | | preliminary verified | | | | | report. | | | + + + + + | GLOBULIN | 3.8 | 2.1 - 3.8 g/dL | [facility] | | | | | [facility] | | | | | CENTER - | | | | | LABORATORY | + + + + + | Albumin/Globulin | 0.8 | 0.8 - 2.0 | [facility] | | ratio | | | [facility] | | | | | CENTER - | | | | | LABORATORY | + + + + + | BUN/CREA | 14.5 | | [facility] | | | | | [facility] | | | | [...] + | [facility] | [address] | [place] | [phone] | | [facility] | | [address] | | | - LABORATORY | | | | + + + + + | [facility] | [address] | [place], [place] | | | [facility] | | [address] | | | - LABORATORY | | | | + + + + + in this encounter Visit Diagnoses + + | Diagnosis | + + | Squamous cell carcinoma of larynx (HCC) - Primary | + + | Malignant neoplasm of larynx, unspecified site | + + | Chemotherapy induced neutropenia (HCC) | + + | Drug induced neutropenia | + + | Bronchitis | + + | Bronchitis, not specified as acute or chronic | + +"
--- OUTSIDE RECORDS SUMMARY | ~2018-08-25 | XMS | Encounter Summary ---
Demographics + + + | Address | [address] | | | [place] [address] | + + + | Home Phone | | + + + | Preferred Language | Unknown | + + + | Marital Status | Single | + + + | Taoism Affiliation | Unknown | + + + | Race | Unknown | + + + | Ethnic Group | Unknown | + + + Author + + + | Author | [facility] | | | and [place]ana | + + + | Organization | [facility] | | | and [...] Team Providers + +------+ + | Care Faculty Dean Name | Role | Phone | + +------+ + | Yeyo Anderson DO | PCP | | + +------+ + Encounter Details +--------+ + + + + | Date | Type | Department | Care Team | Description | +--------+ + + + + | 07/24/ | [facility] | [facility] | Estefanía Hairston | | | 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 | MED CTR RADIATION | [place], [address] | | | | | ONCOLOGY [address] [place], [place] | | | | | [place], | [address] | | | | | [place] [address] | | | | | | [phone] | | | +--------+ + + + [...] tablets by | 30 | 0 | / | | | HYDROcodone-acetamin | mouth every [...] [address] | | | | | | [place], [place] | | | | | | [address] | | | | | | | | +--------+ + + + + | 09/15/ | Appointment | Oncology | Sterling Thomas, | | | 2017 | | | MD [address] | | | | | | [place] | | | | | | [address] | | | | | | [phone] | | | | | | | | +--------+ + + + + | 09/15/ | Appointment | Nutrition | Joselin Falcon, | | | 2017 | | | RDN | | +--------+ + + + + as of this encounter Visit Diagnoses Not on filein this encounter"
--- OUTSIDE RECORDS SUMMARY | ~2018-08-25 | XMS | Encounter Summary ---
Demographics + + + | Address | [address] | | | [place] [address] | + + + | Home Phone [...] + | Author | [facility] | | | and Mikeana | + + + | Organization | [facility] | | | and [...] Team Providers + +------+ + | Care Catering Convention Services Manager Name | Role | Phone | [...] neoplasm of | [address] | | | | | larynx, | [address] | [place], | | | | | unspecified | [place], | [place] [address] | | | | | (HCC) | [place] | Phone: | | | | | Procedures | [address] | [phone] | | | | | MD IV | Phone: | Fax: | | | | | INFUSION, | [phone] | [phone] | | | | | HYDRATION, | Fax: | | | | | | 31-60 MIN | [phone] | | | | | | MD IV | | | | | | | INFUSION, | | | | | | | HYDRATION, | | | | | | | EA ADD HOUR | | | | | | | MD | | | | | | | ONDANSETRON | | | | | | | ORAL MD | | | | | | | ORAL | | | | | | | DEXAMETHASON | | | | | | | E, .25 MG | | | | | | | MD | | | | | | | CHEMOTHERAPY | | | | | | | DRUG MD | | | | | | | CISPLATIN 10 | | | | | | | MG | | | | | | | INJECTION | | | | | | | MD ADRENALIN | | | | | | | EPINEPHRINE | | | | | | | INJECT, .1 | | | | | | | MG MD | | | | | | | DIPHENHYDRAM | | | | | | | INE HCL | | | | | | | INJECTIO, 50 | | | | | | | MG MD | | | | | | | METHYLPREDNI | | | | | | | SOLONE | | | | | | | INJECTION, | | | | | | | 125 MG MD | | | | | | | ALBUTEROL | | | | | | | COMP CON, 1 | | | | | | | MG MD | | | | | | | ALBUTEROL | | | | | | | NON-COMP | | | | | | | CON, 1 MG | | | | | | | MD | | | | | | | INJECTION, | | | | | | | FAMOTIDINE, | | | | | | | 20 MG MD | | | | | | | NORMAL | | | | | | | SALINE | | | | | | | SOLUTION | | | | | | | INFUS, 500 | | | | | | | ML MD | | | | | | | NORMAL | | | | | | | SALINE | | | | | | | SOLUTION | | | | | | | INFUS, 250 | | | | | | | ML MD | | | | | | | STERILE | | | | | | | WATER/SALINE | | | | | | | , 10 ML MD | | | | | | | CHEMOTHER, | | | | | | | IV PUSH,EA | | | | | | | ADD DRUG MD | | | | | | | CHEMOTHER, | | | | | | | IV INFUSION, | | | | | | | 1 HR MD | | | | | | | CHEMOTHER, | | | | | | | IV INFUSION, | | | | | | | EA HR MD | | | | | | | CHEMOTHER,NO | | | | | | | N-HORMONE | | | | | | | ANTI-NEOPL, | | | | | | | SUB-Q/IM MD | | | | | | | [...] + + | 08/12/ | Hospital | [facility] | Sterling Thomas, | Canceled (OTHER) | | 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 | MED CTR CHEMO | MD [address] | | | | | INFUSION [address] | [place], [place] | | | | | [place] [place], | [address] | | | | | [place] [address] | [phone] | | | | | [phone] | | | +--------+ + + + [...] [place] | | | | | | [address] | | | | | | | | +--------+ + + + + | 09/15/ | Appointment | Oncology | Sterling Thomas, | | | 2017 | | | [address] | | | | | | [place] | | | | | | [address] | | | | | | [phone] | | | | | | | | +--------+ + + + + | 09/15/ | Appointment | Nutrition | Joselin Falcon, | | | 2017 | | | RDN | | +--------+ + + + + as of this encounter Visit Diagnoses Not on filein this encounter"
--- OUTSIDE RECORDS SUMMARY | ~2018-08-25 | XMS | Encounter Summary ---
Demographics + + + | Address | [address] | | | [place] [address] | + + + | Home Phone [...] | Author | [facility] | | | and [place]ana | + + + | Organization | [facility] | | [...] Team Providers + +------+ + | Care Spar Cap Beveler Name | Role | Phone | + +------+ + | Yeyo Anderson DO | PCP | | + +------+ + Reason for Visit + + + | Reason | Comments | + + + | Medication Orders | | + + + Encounter Details +--------+ + + + + | Date | Type | Department | Care Team | Description | +--------+ + + + + | 07/27/ | Telephone | [facility] | Estefanía Hairston | Medication Orders | | 2018 | | MED CTR RADIATION | MD Alana [address] | | | | | ONCOLOGY CLINIC [address] | [place], [place] | | | | | [address] [facility] | [address] | | | | | [place] [address] | | | | | | [phone] | | | +--------+ + + + [...] [place] | | | | | | [address] | | | | | | | | +--------+ + + + + | 09/15/ | Appointment | Oncology | Sterling Thomas, | | | 2017 | | | MD [address]ICOLE | | | | | | [place] | | | | | | [address] | | | | | | [phone] | | | | | | | | +--------+ + + + + | 09/15/ | Appointment | Nutrition | Joselin Falcon, | | | 2018 | | | RDDorothy | | +--------+ + + + + as of this encounter Visit Diagnoses Not on filein this encounter"
--- OUTSIDE RECORDS SUMMARY | ~2018-08-25 | XMS | Encounter Summary ---
Demographics + + + | Address | [address] | | | [place] [address] | + + + | Home Phone | | + + + | Preferred Language | Unknown | + + + | Marital Status | Single | + + + | Druze Affiliation | Unknown | + + + | Race | Unknown | + + + | Ethnic Group | Unknown | + + + Author + + + | Author | [facility] | | | and Mikeana | + + + | Organization | [facility] | | | and [...] Providers + +------+ + | Care It Security Specialist Name | Role | Phone | + +------+ + | Yeyo Anderson DO | PCP | | + +------+ + Reason for Visit + + + | Reason | Comments | + + + | Fever (9 Weeks To 74 | | | Years) | | + + + | Blood-streaked | | | Sputum | | + + + Encounter Details +--------+ + + + + | Date | Type | Department | Care Team | Description | +--------+ + + + + | 08/02/ | Emergency | [facility] | Kelley, | Lower respiratory | | 2018 | | MED CTR EMERGENCY | Manuel Masters MD [address] | infection (Primary | | | | CENTER [address] | [address] [place] | Dx); Tracheostomy | | | | [place], [place] | [place] [address] | care ([facility]); | | | | [address] | [phone] | Hemoptysis, endemic | | | | [phone] | | ([facility]) | +--------+ + + + + Social [...] + + + | Blood Pressure | 126/67 | 08/02/201813 PDT | + + + + | Pulse | 87 | 08/02/201852 PDT | + + + + | Temperature | 38.2 C (100.7 F) | 08/02/2018712 PDT | + + + + | Respiratory Rate | 20 | 08/02/2018851 PDT | + + + + | Oxygen Saturation | 96% | 08/02/2018851 PDT | + + + + | Inhaled Oxygen | - | - | | Concentration | | | + + + + | Weight | 66.7 kg (147 lb) | 08/02/2018712 PDT | + + + + | Height | 154.9 cm (5' 1") | 08/02/2018712 PDT | + + + + | Body Mass Index | 27.78 | 08/02/2018 0713 PDT | + + + + in this encounter Discharge Instructions Manuel Benson MD - 08/02/2018Take Tylenol for fever Take antibiotics as prescribed Return to the ER if your symptoms worsen, specifically if you develop increased blood in yo ur sputum Follow-up with your doctor as neededin this encounter Medications at Time of Discharge + + + +---------+ + + | Medication | Sig. | Disp. | Refills | Start | End Date | | | | | | Date | | + + + +---------+ + + | albuterol 2.5 mg/3 | Take 3 mLs by | 60 vial | 0 | 07/28/ | | | mL nebulizer | nebulization every 4 | | | 18 | | | solutionIndications: | hours as needed for | | | | | | Laryngeal cancer | Wheezing or | | | | | | ([facility]) | Shortness of Breath. | | | [...] | | | | | ([facility]), Status post | | | | | | | emergency | | | | | | | tracheotomy for | | | | | | | assistance in | | | | | | | breathing ([facility]), | | | | | | | Chronic obstructive | | | | | | | pulmonary disease, | | | | | | | unspecified COPD | | | | | | | type ([facility]) | | | | | [...] | | | | | ([facility]), Encounter for | | | [...] [place] | | | | | | [address] | | | | | | [phone] | | | | | | | | +--------+ + + + + | 09/15/ | Appointment | Nutrition | Joselin Falcon, | | | 2017 | | | RDN | | +--------+ + + + + + +--------+ + + | Name | Priori | Associated Diagnoses | Date/Time | | | ty | | | + +--------+ + + | ED INFORMATION EXCHANGE | Routin | | 08/02/2018 0704 PDT | | | e | | | + +--------+ + + as [...] | | n - | | | | | | 2017 | | | 0705 | | | [...] [place] | | | | | | [id number] | | | [id number] | | | This | | | [...] | | | St. | | | [place] | | | y | | | [...] | | | St. | | | [place] | | | y H. | | [...] | | | St. | | | [place] | | | y H. | | [...] | | | St. | | | [place] | | | y H. | | [...] | | | St. | | | [place] | | | y | | | [...] | | | DO | | | Rate Examiner | | | al | | | [...] MD | | | | | | Rate Examiner | | | al | | | [...] | | | St. | | | [place] | | | y | | | Hospit | | | al | | | Patien | | | t is | | | curren | | | tly | | | establ | | | ished | | | with | | | St | | | [place] | | | y | | | [...] St | | | | | | [place] | | | y | | | [...] | [email or web address] | | | | +---+--------+ in this encounter Results XR Chest AP Portable (08/02/2018 0821) + + + | Narrative | Performed [...] + | Diagnosis | + + | Lower respiratory infection - Primary | + + | Other diseases of respiratory system, not elsewhere classified | + + | Tracheostomy care (HCC) | + + | Attention to tracheostomy | + + | Hemoptysis, endemic (HCC) | + + | Paragonimiasis | + + Administered Medications + +--------+ +--------+------+------+ | Medication Order | MAR | Action | Dose | Rate | Site | | | Action | Date | | | | + +--------+ +--------+------+------+ | acetaminophen (TYLENOL) tablet | Given | 08/02/20 | 650 mg | | | | 650 mg 650 mg, Oral, ONCE, Mon | | 18 8:33 | | | | | 08/02/18 at 0830, For 1 dose | | PDT | | | | + +--------+ +--------+------+------+ +---+---+ | | | +---+---+ + +-------+ +--------+---+---+ | doxycycline (VIBRAMYCIN) tablet | Given | 08/02/20 | 100 mg | | | | 100 mg 100 mg, Oral, ONCE, Mon | | 18 8:33 | | | | | 08/02/18 at 0830, For 1 dose, May | | PDT | | | | | take with food to avoid GI | | | | | | | upset. Administer with at least 8 | | | | | | | ounces of water and have patient | | | | | | | sit up for at least 30 minutes. | | | | | | + +-------+ +--------+---+---+ +---+---+ | | | +---+---+ in this encounter
--- OUTSIDE RECORDS SUMMARY | ~2018-08-25 | XMS | Encounter Summary ---
Demographics + + + | Address | [address] | | | [place] [address] | + + + | Home Phone [...] + | Author | [facility] | | | and Mikeana | + + + | Organization | [facility] | [...] Team Providers + +------+ + | Care Automobile Upholsterer Name | Role | Phone | + [...] | | | | COPD type | [address] | | | | | | ([facility]) | Phone: | | | | | | Smoker | [phone] | | | | | | Tracheostomy | Fax: | | | | | | , acute | [phone] | | | | | | management | | | | | | | ([facility]) | | | | | | | 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 | | | | | | | ([facility]) | | | | [...] | | | | | | ([facility]) | [place] | | | | | | Squamous | [address] | | | | | | cell | Phone: | | | | | | carcinoma of | [phone] | | | | | | larynx | Fax: | | | | | | ([facility]) | [phone] | | | | | | Procedures [...] | | | | COPD type | [address] | | | | | | ([facility]) | Phone: | | | | | | Smoker | [phone] | | | | | | Tracheostomy | Fax: | | | | | | , acute | [phone] | | | | | | management | | | | | | | ([facility]) | | | | | | | 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 | | | | | | | ([facility]) | | | + + [...] | | | | | | | [place] [address] | | | | | | | Phone: | | | | | | | [phone] | | | | | | | Fax: | | | | | | | [phone] | | + + + + + [...] + + | 06/01/ | Hospital | [facility] | Ac Hines, | Tracheostomy, acute | | 2018 - | Encounter | [facility] | MD [address], | management ([facility]) | | | | [address] [place] | [address] [place], | (Primary Dx); | | 06/10/ | | [place] [address] | [place] [address] | Bilateral foot pain; | | 2018 | | [phone] | [phone] | Right leg pain; | | | | | | Laryngeal carcinoma | | | | | | ([facility]); Status post | | | | | | emergency | | | | | | tracheotomy for | | | | | | assistance in | | | | | | breathing ([facility]); | | | | | | Chronic obstructive | | | | | | pulmonary disease, | | | | | | unspecified COPD | | | | | | type ([facility]); Smoker; | | | | [...] S/p debulking surgery and trach placement at [facility], transferred to [facility] for acut e care - Admitted for [...] days. Specialty: Otolaryngology Why: For wound re-check--in [place] office Contact information: [address], [address] [facility] [address] Discharge Medications New Medications Details Commode Bedside [...] signed by: Ashkan Dennis MD, 06/10/2018 10:44 [facility] in this encounter Discharge Instructions Ashkan Dennis MD - 06/10/2018You were admitted with new tracheostomy after surgery for laryngeal mass. You will need home health at home, and we are working with the [facility] to supply home tracheostomy care needs. Please follow up with Dr. Hines to jairon iglesias the tracheostomy and treatment for the laryngeal mass. The following attachments cannot be sent through Care Everywhere.Care, Tracheostomy (Englis h)Caring for Your Tracheostomy Tube and Stoma, Discharge Instructions (Ghanaian)Tracheostomy Care (Ghanaian)Tracheostomy Tube or Stoma: Your New Airway (Ghanaian)Tracheostomy Tube, Adjust ing to Your (Ghanaian)Tracheostomy Tube, Your, Answers to Common Questions About (Ghanaian)Tra cheostomy Tube, Your: Learning How to Communicate (Ghanaian)Tracheostomy Tube, Your: Tips for Eating (Ghanaian)Tracheostomy, Cleaning Your (Ghanaian)Tracheostomy, Suctioning Your (Ghanaian )Tracheostomy, What Is (Ghanaian)in this encounter Medications at Time of Discharge [...] 0 | 06/10/20 | | | ([facility]) | Does not apply route | | | 18 | | | MISCIndications: | as needed. | | | | | | Laryngeal carcinoma | | | | | | | ([facility]), Status post | | | | | | | emergency | | | | | | | tracheotomy for | | | | | | | assistance in | | | | | | | breathing ([facility]), | | | | | | | Chronic obstructive | | | | | | | pulmonary disease, | | | | | | | unspecified COPD | | | | | | | type ([facility]) | | | | [...] Progress Notes Ashkan Dennis MD - 06/09/2018 4857 PDTFormatting of this note may be different from karine lazar. [facility] PM Hospitalist Progress Note Crystal Sadler is [...] be okay to go home, asked s [facility] therapy to provide her with Passy [place] valve to help her talk better, preliminary [...] as outlined above. Ashkan Dennis 06/09/2018 17:20 [facility] Tiffani King, ECOLOGY TEACHER - 06/09/2018 0913 PDTPt is sleeping will return for trach care and suctioning when she Wakes up or her nurse calls. BS are clear but diminished SpO2 On RA is 92%, 98% on 5 lpm oxygen driven neb tx.Ac Hines MD - 06/09/2018 0759 PDTPt stable and awaiting placement. Path still pending. I' ll see her in office in next weekMarlena Diaz, ECOLOGY TEACHER - 06/09/2018 0129 PDTPatient trach w as [...] am if path is done Janee Cornell, ECOLOGY TEACHER - 06/08/2018 0956 PDTAt 0730 this morning [...] Dr. Dennis and to the nursi ng completion supervisor. At 9:14 I received a call [...] may be different from th vashti original. [facility] PMG Hospitalist Progress Note Crystal Sadler is [...] as outlined above. Ashkan Dennis 06/08/2018 8:51 [facility] Prosper Dudley MD - 06/07/2018 1258 PDTFormatting of this note may be different from karine lazar. 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 She was referred to ENT at which point a bulky laryngeal mass was identified On 06/01/18 the patient underwent tumor debulking, Bx at [facility] in [place], [place] Post operatively the pt abruptly developed airway obstruction and returned to the OR at [facility] time an urgent tracheostomy was performed. The pt was then transferred to [facility] ICU for further care. Initially the [...] Bx and urgent tracheotomy tube placement at [facility] on 06/01/18 Now stable from cardio-pulm standpoint Arrangements being made for transfer to skilled facility for trach training Pt to follow up with Dr Hines in approx week's time for conversion to non-cuffed trach To start XRT in near future Seen by TEXTILE STYLIST eval; some dyphagia noted; dietary recommendations noted Would consider eval by med oncol as well Continue DEIDRE's Tracheal humidification Would check caloric intake. Nicotine replacement therapy added Continue regimen. Possible feeding tube in the future Further management per ENT service Electronically signed by: Prosper Dudley MD, DATE/TIME: 06/07/2018 12:58 [facility] HOSPITALIST Prosper Sierra MD - 06/06/2018 1144 PDTFormatting of this note may be different from the original. 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 She was referred to ENT at which point a bulky laryngeal mass was identified On 06/01/18 the patient underwent tumor debulking, Bx at [facility] in [place], [place] Post operatively the pt abruptly developed airway obstruction and returned to the OR at [facility] time an urgent tracheostomy was performed. The pt was transferred to [facility] ICU for further care. Initially the [...] Dr Hines he will plan to place [facility] non-cuffed trach within the next couple [...] Bx and urgent tracheotomy tube placement at [facility] on 06/01/18 Stable from cardio-pulm standpoint Arrangements being made for transfer to skilled facility for trach training Pt to follow up with Dr Hines in approx week's time for conversion to non-cuffed trach To start XRT in near future Seen by TEXTILE STYLIST eval; some dyphagia noted; dietary recommendations noted Would consider eval by med oncol as well Continue DEIDRE's Tracheal humidification Would check caloric intake. Nicotine replacement therapy added Continue regimen. Possible feeding tube in the future Electronically signed by: Prosper Dudley MD, DATE/TIME: 06/06/2018 11:44 [facility] HOSPITALIST [facility] hospitalProsper reeves MD - 06/05/2018 1304 PDTFormatting of this note may be different from the original. HOSPITALIST progress NOTE [facility] [place] 06/05/2018 Rounding Physician: Prosper Dudley MD Patient Name: Crystal Sadler : 1955 Medical Record: [id number] Primary Hospital Problem: Laryngeal tumor S/p tracheotomy HPI: Pt is 62yo detention smoker who developed sore throat, hoarseness and ear ache. She was referred to ENT at which point a bulky laryngeal mass was identified On 06/01/18 the patient underwent tumor debulking, Bx at [facility] in [place], [place] Post operatively the pt abruptly developed airway obstruction and returned to the OR at [facility] time an urgent tracheostomy was performed. The pt was transferred to [facility] ICU for further care. Initially the [...] start XRT in near future Seen by TEXTILE STYLIST eval; some dyphagia noted; dietary recommendations noted Would consider eval by med oncol as well Continue DEIDRE's Tracheal humidification Would check caloric intake. Nicotine replacement therapy added Continue regimen. Electronically signed by: Prosper Dudley MD, DATE/TIME: 06/05/2018 13:04 [facility] HOSPITALIST [facility]sym[facility] hospitalProsper reeves MD - 06/04/2018 1246 PDTFormatting of this note may be different from the original. 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 She was referred to ENT at which point a bulky laryngeal mass was identified On 06/01/18 the patient underwent tumor debulking, Bx at [facility] in [place], [place] Post operatively the pt abruptly developed airway obstruction and returned to the OR at [facility] time an urgent tracheostomy was performed. The pt was transferred to [facility] ICU for further care. Initially the [...] To start XRT in near future Awaiting TEXTILE STYLIST eval altho pt appears to be able to tolerate po now; I am less optimistic abou t PO intake once XRT begins at which point pt may required feeding tube Would consider eval by med oncol as well Continue DEIDRE's Tracheal humidification Would check caloric intake. Nicotine replacement therapy added Check labs in AM Electronically signed by: Prosper Dudley MD, DATE/TIME: 06/04/2018 12:46 [facility] HOSPITALIST Heide Abdullahi RN - 06/02/2018 1638 PDTPt transferred down from ICU. Alert and able to mouth need or uses paper to communicate. EXPLOSIVES HANDLER reported th at she did try to [...] [place] | | | | | | [place], [place] | | | | | | [address] | | | | | | | | +--------+ + + + + | 09/15/ | Appointment | Oncology | Sterling Thomas, | | | 2017 | | | MD [address] | | | | | | [place] | | | | | | [address] | | | | | | [phone] | | | | | | | [...] + | [facility] | [address] | [place] | [phone] | | [facility] | | [address] | | | - LABORATORY | | | | + + + + + | [facility] | [address] | [place] | | | [facility] | | [address] | | | - LABORATORY | | | | + + + + + Phosphorus (06/06/2018605) + +-------+ + + | Component | Value | Ref Range | Performed At | + +-------+ + + | Phosphorus | 3.5 | 2.5 - 4.6 mg/dL | [facility] | | | | | [facility] [...] + | [facility] | [address] | [place] | [phone] | | [facility] | | [address] | | | - LABORATORY | | | | + + + + + | [facility] | [address] | [place], [place] | | | [facility] | | [address] | | | - LABORATORY | | | | + + + + + Magnesium (06/06/2018605) + +-------+ + + | Component | Value | Ref Range | Performed At | + +-------+ + + | Magnesium | 2.0 | 1.8 - 2.5 mg/dL | [facility] | | | | | MID [...] + | [facility] | [address] | [place], [place] | [phone] | | [facility] | | [address] | | | - LABORATORY | | | | + + + + + | [facility] | [address] | [place], [place] | | | [facility] | | [address] | | | - LABORATORY | | [...] + | [facility] | [address] | [place] | [phone] | | [facility] | | [address] | | | - LABORATORY | | | | + + + + + | [facility] | [address] | [place] | | | [facility] | | [address] | | | - LABORATORY | | [...] mL/min/1.73m2 | [facility] | | [place] | FILTRATION | | [facility] | | | RATE,ESTIMATED mL/min | | CENTER - | | | /[id number] than 60 | | LABORATORY | | [...] 8.9 | 8.3 - 10.5 mg/dL | [facility]. | | | | | [facility] | | | | | CENTER - | | | | | LABORATORY | + + + + + | [facility] | 18.3 | | [facility]. | | | | | [facility] [...] + | [facility] | [address] | [place] | [phone] | | [facility] | | [address] | | | - LABORATORY | | | | + + + + + | [facility] | [address] | [place] | | | [facility] | | [address] | | | - LABORATORY | | [...] [address] | [place] | [phone] | | [facility] | | [address] | | | - LABORATORY | | | | + + + + + | [facility] | [address] | [place] | | | [facility] | | [address] | | | - LABORATORY | | [...] | | | | First dose on [facility] 06/10/18 at | | PDT [...] | | | | First dose on [facility] 06/10/18 at 1045 | | [...]
--- OUTSIDE RECORDS SUMMARY | ~2018-08-25 | XMS | Encounter Summary ---
Demographics + + + | Address | [address] | | | [place] [address] | + + + | Home Phone [...] + + + | Author | [facility] | | | and Mikeana | + + + | Organization | [facility] | | | and Mikeana [...] Providers + +------+ + | Care Care Transport Nurse Name | Role | Phone | + +------+ + | Yeyo Anderson DO | PCP | | + +------+ + Encounter Details +--------+ + + + + | Date | Type | Department | Care Team | Description | +--------+ + + + + | 10/05/ | Orders Only | [facility] | Yoan Chivo, DO | Mucositis due to | | 2018 | | [facility] | [address] | radiation therapy | | | | [facility] [address] | [place], [place] | (Primary Dx) | | | | [address] [place] | [address] | | | | | [place] [address] | | | | | | [phone] | | | +--------+ + + + [...] [place] | | | | | | [address] | | | | | | [phone] | | | | | | | [...] (ulcerative) due to antineoplastic therapy | + +"
--- OUTSIDE RECORDS SUMMARY | ~2018-08-25 | XMS | Encounter Summary ---
Demographics + + + | Address | [address] | | | [place] [address] | + + + | Home Phone | | + + + | Preferred Language | Unknown | + + + | Marital Status | Single | + + + | Episcopalian Affiliation | Unknown | + + + | Race | Unknown | + + + | Ethnic Group | Unknown | + + + Author + + + | Author | [facility] | | | and Mikeana | + + + | Organization | [facility] | | | and Mikeana [...] Team Providers + +------+ + | Care Utility System Operator Name | Role | Phone | [...] | | | [facility] [address] | [place], [place] | (Primary Dx) | | | | [address] [place] | [address] | | | | | [place] [address] | | | | | | [phone] | | | +--------+ + + + [...] [place] | | | | | | [address] | | | | | | [phone] | | | | | | | [...]
--- OUTSIDE RECORDS SUMMARY | ~2018-08-25 | XMS | Encounter Summary ---
Demographics + + + | Address | [address] | | | [place] [address] | + + + | Home Phone | | + + + | Preferred Language | Unknown | + + + | Marital Status | Single | + + + | Restorationism Affiliation | Unknown | + + + | Race | Unknown | + + + | Ethnic Group | Unknown | + + + Author + + + | Author | [facility] | | | and Mikeana | + + + | Organization | [facility] | | | [...] Team Providers + +------+ + | Care Diamond Sizer Name | Role | Phone | + [...] neoplasm of | [address] | | | | | larynx, | [address] | [place], | | | | | unspecified | [place], | [place] [address] | | | | | (HCC) | [place] | Phone: | | | | | Procedures | [address] | [phone] | | | | | IA IV | Phone: | Fax: | | | | | INFUSION, | [phone] | [phone] | | | | | HYDRATION, | Fax: | | | | | | 31-60 MIN | [phone] | | | | | | IA IV | | | | | | | INFUSION, | | | | | | | HYDRATION, | | | | | | | EA ADD HOUR | | | | | | | IA | | | | | | | ONDANSETRON | | | | | | | ORAL IA | | | | | | | ORAL | | | | | | | DEXAMETHASON | | | | | | | E, .25 MG | | | | | | | IA | | | | | | | CHEMOTHERAPY | | | | | | | DRUG IA | | | | | | | CISPLATIN 10 | | | | | | | MG | | | | | | | INJECTION | | | | | | | IA ADRENALIN | | | | | | | EPINEPHRINE | | | | | | | INJECT, .1 | | | | | | | MG IA | | | | | | | DIPHENHYDRAM | | | | | | | INE HCL | | | | | | | INJECTIO, 50 | | | | | | | MG IA | | | | | | | METHYLPREDNI | | | | | | | SOLONE | | | | | | | INJECTION, | | | | | | | 125 MG IA | | | | | | | ALBUTEROL | | | | | | | COMP CON, 1 | | | | | | | MG IA | | | | | | | ALBUTEROL | | | | | | | NON-COMP | | | | | | | CON, 1 MG | | | | | | | IA | | | | | | | INJECTION, | | | | | | | FAMOTIDINE, | | | | | | | 20 MG IA | | | | | | | NORMAL | | | | | | | SALINE | | | | | | | SOLUTION | | | | | | | INFUS, 500 | | | | | | | ML IA | | | | | | | NORMAL | | | | | | | SALINE | | | | | | | SOLUTION | | | | | | | INFUS, 250 | | | | | | | ML IA | | | | | | | STERILE | | | | | | | WATER/SALINE | | | | | | | , 10 ML IA | | | | | | | CHEMOTHER, | | | | | | | IV PUSH,EA | | | | | | | ADD DRUG IA | | | | | | | CHEMOTHER, | | | | | | | IV INFUSION, | | | | | | | 1 HR IA | | | | | | | CHEMOTHER, | | | | | | | IV INFUSION, | | | | | | | EA HR IA | | | | | | | CHEMOTHER,NO | | | | | | | N-HORMONE | | | | | | | ANTI-NEOPL, | | | | | | | SUB-Q/IM IA | | | | | | | [...] + + | 08/18/ | Hospital | [facility] | Sterling Thomas, | 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 | | | | INFUSION [address] | [place], [place] | (HCC); Encounter for | | | | [address] [place], | [address] | antineoplastic | | | | [place] [address] | [phone] | chemotherapy ; | | | | [phone] | | Tracheostomy, acute | | | [...] | | | | | | breathing (HCC), | | | | | | | [...] encounter Progress Notes Kasey Gongora, RN - 08/18/2018 1410 PDTPatient reports that she is feeling really hot and is clammy she also states that she might throw up. Denies any chest, back, arm or jaw pain. Vitals: BP 125/59, Resp 18, Sats 97% Pulse 72. After coming to a sitting position fr om lying down reports that she is starting to feel better blood sugar 342 reports that she h as been on metformin but went off of it a year ago she is going to get in contact with her [facility] doctor and set an appointment. 1420 Reports that nausea is gone she is feeling fine. Discharged to Radiation therapy.in this encounter Plan of Treatment +--------+ + + + + | Date | Type | Specialty | Care Team | Description | +--------+ + + + + | 08/26/ | Appointment | Radiation Oncology | Estefanía Hairston | | | 2017 | | | MD [address] Warner | | | | | | [place], [place] | | | | | | [address] | | | | | | | | +--------+ + + + + | 09/15/ | Appointment | Oncology | Sterling Thomas, | | | 2017 | | | [address] | | | | | | [place] | | | | | | [address] | | | | | | [phone] | | | | | | | [...] [facility]) Encounter for | results section. | [...] [facility] Encounter for | results section. | [...] [facility] Encounter for | results section. | | | | | antineoplastic | | | | | | chemotherapy | | + +--------+ + + + in this encounter Results POC Glucose (08/18/2018 1417) + +---------+ + [...] + | [facility] | [address] | [place] | [phone] | | [facility] | | [address] | | | - LABORATORY | | | | + + + + + | [facility] | [address] | [place] | | | [facility] | | [address] | | | - LABORATORY | | | | + + + + + Magnesium (08/18/2018 0849) + +---------+ + + | Component | Value | Ref Range | Performed At | + +---------+ + + | Magnesium | 1.7 (L) | 1.8 - 2.5 mg/dL | [facility] | | | | | [facility] | | | | [...] + | [facility] | [address] | [place], [place] | [phone] | | [facility] | | [address] | | | - LABORATORY | | | | + + + + + | [facility] | [address] | [place], [place] | | | [facility] | | [address] | | | - LABORATORY | | | | + + + + + CBC with Differential (08/18/201849) + + + + + | Component | Value | Ref Range | Performed At | + + + + + | WBC | 5.2 | 4.0 - 11.0 K/uL | [facility] [...] + + + + | Hgb | 13.4 | 11.5 - 16.0 g/dL | [facility] | | | | | [facility] | | | [facility] - | | | | | LABORATORY | + + + + + | Hct | 39.6 | 34.0 - 47.0 % | [facility] [...] + + + + | MCH | 30.6 | 28.0 - 35.0 pg | [facility] | | | | | [facility] | | | | | [facility] - | | | | | LABORATORY | + + + + + | MCHC | 33.8 | 32.0 - 36.0 g/dL | [facility] | | | | | [facility] | | | | | [facility] - | | | | | LABORATORY | + + + + + | RDW-CV | 13.4 | <15.0 % | [facility] | | | | | [facility] | | [facility] | | [facility] - | | | | | LABORATORY | + + + + + | RDW-SD | 44.7 | 35.1 - 46.3 fL | [facility] | | | | | [facility] | | | | | [facility] - | | | | | LABORATORY | + + + + + | Platelet Count | 231 | 140 - 440 K/uL | [facility] | | | | | [facility] | | | | | [facility] - | | | | | LABORATORY | + + + + + | MPV | 9.5 | 6.5 - 12.4 fL | [facility] | | | | | [facility] | | | | | [facility] - | | | | | LABORATORY | + + + + + | % Neutrophils | 57.9 | 45.0 - 82.0 % | [facility] | | | | | [facility] | | | | | [facility] - | | | | | LABORATORY | + + + + + | % Lymphocytes | 25.0 | 20.0 - 45.0 % | [facility] | | | | | [facility] | | | | | [facility] - | | | | | LABORATORY | + + + + + | % Monocytes | 14.9 (H) | 4.0 - 12.0 % | [facility] | | | | | [facility] | | | | | [facility] - | | | | | LABORATORY | + + + + + | % Eosinophils | 1.2 | 0.0 - 5.0 % | [facility] [...] + + + | % Immature | 0.4 | 0.0 - 0.4 % | [facility] | | granulocytes | | | [facility] | | | | | [facility] - | | | | | LABORATORY | + + + + + | Absolute Neutrophils | 3.00 | 1.80 - 8.50 K/uL | [facility] | | | | | [facility] | | | | | [facility] - | | | | | LABORATORY | + + + + + | Absolute Lymphocytes | 1.29 | 0.60 - 3.20 K/uL | [facility] | | | | | [facility] | | | | | [facility] - | | | | | LABORATORY | + + + + + | Absolute Monocytes | 0.77 | 0.00 - 1.00 K/uL | [facility] [...] 0.00 | 0.00 - 0.01 K/uL | [facility] | | | | | [facility] | | | | [...] [address] | [place] | [phone] | | [facility] | | [address] | | | - LABORATORY | | | | + + + + + | [facility] | [address] | [place] | | | [facility] | | [address] | | | - LABORATORY | | | | + + + + + Comprehensive Metabolic Panel (08/18/2018 0849) + + + + + | Component | Value | Ref Range | Performed At | + + + + + | NA | 130 (L) | 136 - 149 mmol/L | [facility] | | | | | [facility] | | | | | CENTER - | | | | | LABORATORY | + + + + + | K | 4.4 | 3.5 - 5.1 mmol/L | [facility] | | | | | [facility] | | | | | [facility] - | | | | | LABORATORY | + + + + + | CL | 97 (L) | 98 - 109 mmol/L | [facility] [...] + + + | ANION GAP | 8 | 3 - 16 mmol/L | [facility] | | | | | [facility] | | | | | C[facility] - | | | | | LABORATORY | + + + + + | GLUCOSE | 348 (H) | 70 - 109 mg/dL | [facility] | | | | | [facility] | | | | | [facility] - | | | | | LABORATORY | + + + + + | BUN | 11 | 7 - 18 mg/dL | [facility] | | | | | [facility] | | | | | CENTER - | | | | | LABORATORY | + + + + + | Creatinine, | 0.61 | 0.60 - 1.30 mg/dL | [facility] | | Serum/Plasma | | | [facility] | | | | | CENTER - | | | | | LABORATORY | + + + + + | eGFR if not | >60Comment: GLOMERULAR | >=60 mL/min/1.73m2 | [facility] | | [place] | FILTRATION | | [facility] | | | RATE,ESTIMATED mL/min | | CENTER - | | | /1.04m8Ydyt than 60 | | LABORATORY | | [...] 9.3 | 8.3 - 10.5 mg/dL | [facility] | | | | | [facility] | | | | | CENTER - | | | | | LABORATORY | + + + + + | ALBUMIN | 3.1 (L) | 3.2 - 5.0 g/dL | [facility] | | | | | [facility] | | | | | CENTER - | | | | | LABORATORY | + + + + + | Bilirubin Total | 0.4Comment: This is an | 0.1 - 1.5 mg/dL | [facility] | | | appended report. These | | [facility] | | | results have been | | CENTER - | | | appended to a previously | | LABORATORY | | | preliminary verified | | | | | report. | | | + + + + + | Total protein | 7.0 | 6.0 - 7.8 g/dL | [facility] | | | | | [facility] | | | | | CENTER - | | | | | LABORATORY | + + + + + | AST | 45 (H)Comment: This is | 10 - 42 U/L | [facility] | | | an appended report. | | [facility] | | | These results have been | | CENTER - | | | appended to a previously | | LABORATORY | | | preliminary verified | | | | | report. | | | + + + + + | ALT | 83 (H)Comment: This is | 6 - 45 [...] + + + | ALK PHOS | 84Comment: This is an | 40 - 110 U/L | [facility] | | | appended report. These | | [facility] | | | results have been | | CENTER - | | | appended to a previously | | LABORATORY | | | preliminary verified | | | | | report. | | | + + + + + | GLOBULIN | 3.9 (H) | 2.1 - 3.8 g/dL | [facility] | | | | | [facility] | | | | | CENTER - | | | | | LABORATORY | + + + + + | Albumin/Globulin | 0.8 | 0.8 - 2.0 | [facility] | | ratio | | | [facility] | | | | | CENTER - | | | | | LABORATORY | + + + + + | BUN/CREA | 18.0 | | [facility] | | | | | [facility] | | | | | CENTER - | | | | | LABORATORY | + + + + + + + | Specimen | + + | Blood | + + + + + + + | Performing | Address | City/[facility] | Phone Number | | Organization | | | | + + + + + | [facility] | [address] | [place] | [phone] | | [facility] | | [address] | | | - LABORATORY | | | | + + + + + | [facility] | [address] | [place] | | | [facility] | | [address] | | | - LABORATORY | | | | + + + + + in this encounter Visit Diagnoses + + | Diagnosis | + + | Squamous cell carcinoma of larynx (HCC) | + + | Malignant neoplasm of larynx, unspecified site | + + | Encounter for antineoplastic chemotherapy | + + | Encounter for antineoplastic chemotherapy | + + | Tracheostomy, acute management (HCC) | + + | Attention to tracheostomy | + + Administered Medications + +--------+ +--------+------+------+ | Medication Order | MAR | Action | Dose | Rate | Site | | | Action | Date | | | | + +--------+ +--------+------+------+ | aprepitant (CINVANTI) injection | Given | 08/18/20 | 130 mg | | | | 130 mg 130 mg, IV Push, ONCE, | | 18 10:08 | | | | | 08/18/18 at 1045, For 1 dose, | | PDT | [...] 67.5 mg in | New Bag | 08/18/20 | 67.5 mg | 250 | | | sodium chloride 0.9% 182.5 mL | | 18 11:52 | | mL/hr | | | infusion 67.5 mg (rounded from | | PDT | | | | | 67.6 mg = 40 mg/m2 | | | | | | | 1.69 m2 Treatment plan recorded | | | | | | | BSA), Intravenous, Administer | | | | | | | over 1 Hours, ONCE, Thu08/18/18 | | | | | | | at 1115, For 1 dose, | | | | | | | Chemotherapy: Use appropriate | | | | | | | handling precautions. Vesicant. | | | | | | | Protect from light. | | | | | | + +---------+ +---------+-------+---+ +---+---+ | | | +---+---+ + +---------+ +---+--------+---+ | ondansetron (ZOFRAN) 16 mg, | New Bag | 08/18/20 | | 236.8 | | | dexamethasone (DECADRON) 12 mg in | | 18 10:23 | | mL/hr | | | sodium chloride 0.9% 50 mL IVPB | | PDT | | | | | Intravenous, Administer over 15 | | | | | | | Minutes, ONCE, Thu08/18/18 at | | | | | | | 1045, For 1 dose, Administer 30 | | | | | | | minutes prior to chemotherapy. | | | | | | + +---------+ +---+--------+---+ +---+---+ | | | +---+---+ + +---------+ +---+-------+---+ | sodium chloride 0.9% (NS) 500 | New Bag | 08/18/20 | | 500 | | | mL with potassium chloride 10:42 | | mL/hr | | | mEq, magnesium sulfate 1 g | | PDT | | | | | infusion at 500 mL/hr, | | | | | | | Intravenous, ONCE, 08/18/18 | | | | | | | at 1015, For 1 dose, Administer | | | | | | | pre-cisplatin. | | | | | | + +---------+ +---+-------+---+ +---+---+ | | | +---+---+ + +---------+ +---+-------+---+ | sodium chloride 0.9% (NS) 500 | New Bag | 08/18/20 | | 500 | | | mL with potassium chloride | | 13:01 | | mL/hr | | | mEq, magnesium sulfate 1 g | | PDT | | | | | infusion at 500 mL/hr, | | | | | | | Intravenous, ONCE, 08/18/18 | | | | | | | at 1215, For 1 dose, Administer | | | | | | | post-cisplatin. | | | | | | + +---------+ +---+-------+---+ +---+---+ | | | +---+---+ in this encounter"
--- OUTSIDE RECORDS SUMMARY | ~2018-08-25 | XMS | Encounter Summary ---
Demographics + + + | Address | [address] | | | [place] [address] | + + + | Home Phone | | + + + | Preferred Language | Unknown | + + + | Marital Status | Single | + + + | Adventist Affiliation | Unknown | + + + | Race | Unknown | + + + | Ethnic Group | Unknown | + + + Author + + + | Author | [facility] | | | and [place]ana | + + + | Organization | [facility] | [...] Team Providers + +------+ + | Care Shell Assembler Name | Role | Phone | + +------+ + | Yeyo Anderson DO | PCP | | + +------+ + Encounter Details +--------+ + + + + | Date | Type | Department | Care Team | Description | +--------+ + + + + | 08/24/ | [facility] | [facility] | Estefanía Hairston | Arrived | | 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 | MED CTR RADIATION | [place], [address] | | | | | ONCOLOGY [address] [place], [place] | | | | | [place], | [address] | | | | | [place] [address] | | | | | | [phone] | | | +--------+ + + + [...] | | | | | | | ([facility]), Status post | | | | | | | emergency | | | | | | | tracheotomy for | | | | | | | assistance in | | | | | | | breathing ([facility]), | | | | | | | Chronic obstructive | | | | | | | pulmonary disease, | | | | | | | unspecified COPD | | | | | | | type ([facility]) | | | | | [...] [place] | | | | | | [address] | | | | | | | | +--------+ + + + + | 09/15/ | Appointment | Oncology | Sterling Thomas, | | | 2017 | | | MD [address]ero NICOLE | | | | | | [place] | | | | | | [address] | | | | | | [phone] | | | | | | | | +--------+ + + + + | 09/15/ | Appointment | Nutrition | Joselin Falcon, | | | 2017 | | | RDN | | +--------+ + + + + as of this encounter Visit Diagnoses Not on filein this encounter"
--- OUTSIDE RECORDS SUMMARY | ~2018-08-25 | XMS | Encounter Summary ---
Demographics + + + | Address | [address] | | | [place] [address] | + + + | Home Phone | | + + + | Preferred Language | Unknown | + + + | Marital Status | Single | + + + | Uatsdin Affiliation | Unknown | + + + | Race | Unknown | + + + | Ethnic Group | Unknown | + + + Author + + + | Author | [facility] | | | and [place]ana | + + + | Organization | [facility] | | | and [place] [...] Team Providers + +------+ + | Care Securities Trader Name | Role | Phone | + +------+ + | Yeyo Anderson DO | PCP | | + +------+ + Encounter Details +--------+ + + + + | Date | Type | Department | Care Team | Description | +--------+ + + + + | 07/13/ | Hospital | [facility] | Goyo Moe | 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 | J, 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 | | | | ONCOLOGY CLINIC [address] | (HCC) (Primary Dx) | | | | [address] | [place] [address] | | | | | [facility] [place] [address] | [phone] | | | | | [phone] | | | +--------+ + + + [...] | | | ([facility]), Encounter for | | | | | [...] | | | ([facility]), Encounter for | | | | | | | antineoplastic | | | | | | | chemotherapy | | | | | | + + + +---------+ + + as of this encounter Progress Notes Goyo Moe, PharmD - 07/13/2018 1136 PDTFormatting of this note may be different fr om the original. Clinical Oncology Pharmacy Services Progress Note Chemotherapy Education Session [facility] Pt. Name/Age/: Crystal Sadler 62 y.o. 1955 Med. Record Number: [id number] Identifying Statement: Crystal Sadler is a 62 y.o. female from [address] [place] [address] with The encounter diagnosis was Squamous cell carcinoma of larynx (HCC) . The patient chart and medications were reviewed in detail and the patient was seen and exam ined. Patient was referred to Clinical Oncology Pharmacist for chemotherapy education and side ef fect management. Chemotherapy dose and frequency: cisplatin 100 mg/m2 q 21 days Chemotherapy start date: 07/13/18 Past Medical and Surgical History, Social History and Problems: Past Medical History: Diagnosis Date Arthritis Cancer (HCC) CHF (congestive heart failure) (HCC) COPD (chronic obstructive pulmonary disease) (HCC) Diabetes mellitus (HCC) Encounter for blood transfusion Immune deficiency disorder (HCC) Seizures (HCC) Squamous cell carcinoma of larynx (HCC) Past Surgical History: Procedure Laterality Date CARPAL TUNNEL RELEASE Bilateral 1992 CEASAREAN SECTION, MULTIPLES 1977, 1981 FRACTURE SURGERY HERNIA REPAIR LARYNGOSOPY WITH LARYANGEAL TUMOR BIOPSY AND TRACHEOSTOMY 06/01/2018 ORTHOPEDIC SURGERY ROTATOR CUFF REPAIR Right 1993 TONSILLECTOMY Social History Social History Marital status: Single Spouse name: N/A Number of children: N/A Years of education: N/A Occupational History Not on file. Social History Main Topics Smoking status: Current Every Day Smoker Packs/day: 2.00 Years: 45.00 Types: Cigarettes Smokeless tobacco: Never Used Comment: quit about 3 weeks ago, but has had a few cigarettes per day lately. Alcohol use No Comment: quit in 1992 Drug use: No No Comment: not currently, quit 1992 and again two years ago Sexual activity: Yes Partners: Male control/ protection: No Other Topics Concern Not on file Social History Narrative No narrative on file Patient Active Problem List Diagnosis Bilateral foot pain Right leg pain Squamous cell carcinoma of larynx Smoker Tracheostomy, acute management Encounter for antineoplastic chemotherapy Review of Systems: Constitutional: Denies fever or chills, or weight loss. Eyes: Denies change in visual acuity HEENT: Denies nasal congestion or sore throat Respiratory: Denies cough or shortness of breath Cardiovascular: Denies chest pain or edema GI: Denies abdominal pain, nausea, vomiting, bloody stools or diarrhea : Denies dysuria urgency or frequency. Musculoskeletal: Denies any bone pain Integument: Denies rash, bruising, petechia Neurologic: Denies headache, focal weakness or sensory changes Lymphatic: Denies swollen glands Review of systems as above, otherwise negative Scheduled Medications: Current Outpatient Prescriptions on File Prior to [...] Route Frequency Provider Last Rate Last Dose CISplatin (PLATINOL) 168 mg in sodium chloride 0.9% 332 mL infusion 100 mg/m2 (Treatme nt Plan Recorded) Intravenous Once Sterling Thomas MD [COMPLETED] fosaprepitant (EMEND) 150 mg in sodium chloride 0.9% 250 mL IVPB 150 mg In travenous Once Sterling Thomas MD Stopped at 07/13/18 1056 heparin 100 units/mL flush injection 500 Units 5 mL Intracatheter PRN Sterling Thomas MD [COMPLETED] ondansetron (ZOFRAN) 16 mg, dexamethasone (DECADRON) 12 mg in sodium chlori de 0.9% 50 mL IVPB Intravenous Once Sterling Thomas MD Stopped at 07/13/18 1025 [COMPLETED] sodium chloride 0.9% (NS) 1,000 mL with potassium chloride 20 mEq, magnesiu m sulfate 1 g infusion Intravenous Once Sterling Thomas MD 500 mL/hr at 07/13/18 1056 sodium chloride 0.9% (NS) 500 mL with potassium chloride 10 mEq, magnesium sulfate 1 g infusion Intravenous Once Sterling Thomas MD Objectives: Wt Readings from Last 3 Encounters: 07/13/18 65.1 kg (143 lb 8.3 oz) 06/30/18 65.2 kg (143 lb 11.8 oz) 06/25/18 66.6 kg (146 lb 13.2 oz) Patient Education: Provided teaching on the following, including but not limited to: Pathophysiology of cancer. Brief mechanism of action of anticancer agent(s) and their indications. Supportive medications How to take drug (ie. with or without food, swallow whole, do not crush) Drug/drug and drug/food interactions Lab tests necessary in monitoring the medication for toxicity and efficacy Precautions/warnings Reproductive alterations/precautions and impact on future fertility Side effects and side effect management tips Planned duration of treatment When to call the physician or oncology pharmacist Assesment/Plan: 1. We discussed the high risk nature of the treatment regimen, as well as side effect manag ement. The patient demonstrated understanding and all questions were answered, and wishes to proceed with Cisplatin therapy. 2. Antiemetic regimen: Ondansetron 8 mg PO BID for 2 days after each chemotherapy, then jerald ry 8 hours as needed for nausea. Dexamethasone 4 mg PO BID for 2 days after each chemotherap y. Lorazepam 1 mg PO every 4-6 hours as needed for nausea. 3. Patient information and handouts were given to the patient. 4. Chemotherapy consent form was signed. 5. Please consult clinical oncology pharmacist for any further medication related education . 6. Thank you. Electronically signed by: Goyo Moe PharmD 07/13/2018 11:35 in this encounter Plan of Treatment +--------+ [...] [place] | | | | | | [address] | | | | | | [phone] | | | | | | | [...]
--- OUTSIDE RECORDS SUMMARY | ~2018-08-25 | XMS | Encounter Summary ---
Demographics + + + | Address | [address] | | | [place] [address] | + + + | Home Phone | | + + + | Preferred Language | Unknown | + + + | Marital Status | Single | + + + | Pentecostalism Affiliation | Unknown | + + + | Race | Unknown | + + + | Ethnic Group | Unknown | + + + Author + + + | Author | [facility] | | | and Mikeana | + + + | Organization | [facility] | | | and Mikeana [...] Team Providers + +------+ + | Care Lumber Stacker Operator Name | Role | Phone | [...] | | | | (HCC) | [place] [address] | [facility], [place] | | | | | | Phone: | [address] Phone: | | | | | | [phone] | [phone] | | | | | | Fax: | Fax: | | | | | | [phone] | [phone] | + + + + + + + Encounter Details +--------+ + + + + | Date | Type | Department | Care Team | Description | +--------+ + + + + | 06/30/ | Hospital | [facility] | Sterling Thomas, | 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 | | | | ONCOLOGY CLINIC [address] | [place] | (HCC) (Primary Dx) | | | | [address] | [address] | | | | | [place] [address] | [phone] | | | | | [phone] | | | +--------+ + + + [...] | | ([facility]), Status post | | | | | | | emergency | | | | | | | tracheotomy for | | | | | | | assistance in | | | | | | | breathing ([facility]), | | | | | | | Chronic obstructive | | | | | | | pulmonary disease, | | | | | | | unspecified COPD | | | | | | | type ([facility]) | | | | | | + [...] [place] | | | | | | [id number] | | | | | | | | +--------+ + + + + | 09/15/ | Appointment | Oncology | Sterling Thomas, | | | 2017 | | | MD [address] | | | | | | [place] | | | | | | [address] | | | | | | [phone] | | | | | | | [...]
--- OUTSIDE RECORDS SUMMARY | ~2018-08-25 | XMS | Encounter Summary ---
Demographics + + + | Address | [address] | | | [place] [address] | + + + | Home Phone | | + + + | Preferred Language | Unknown | + + + | Marital Status | Single | + + + | Latter-Day Affiliation | Unknown | + + + | Race | Unknown | + + + | Ethnic Group | Unknown | + + + Author + + + | Author | [facility] | | | and [place]ana | + + + | Organization | [facility] | | | and [place] [...] Team Providers + +------+ + | Care Shoe Singer Name | Role | Phone | + +------+ + | Yeyo Anderson DO | PCP | | + +------+ + Encounter Details +--------+ + + + + | Date | Type | Department | Care Team | Description | +--------+ + + + + | 08/18/ | Hospital | [facility] | Sterling Thomas, | 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 | MD Jack W DAMIAN | carcinoma of larynx | | | | ONCOLOGY CLINIC [address] | [place] | (HCC) (Primary Dx); | | | | [address] | [address] | Elevated LFTs | | | | [place] [address] | [phone] | | | | | [phone] | | | +--------+ + + + [...] + + + | Blood Pressure | 120/72 | 08/18/2018905 PDT | + + + + | Pulse | 78 | 08/18/2018905 PDT | + + + + | Temperature | 36.8 C (98.2 F) | 08/18/2018905 PDT | + + + + | Respiratory Rate | 18 | 08/18/2018905 PDT | + + + + | Oxygen Saturation | 98% | 08/18/2018905 PDT | + + + + | Inhaled Oxygen | - | - | | Concentration | | | + + + + | Weight | 65.1 kg (143 lb 8.3 | 08/18/2018905 PDT | | | oz) | | + + + + | Height | - | - | + + + + | Body Mass Index | 27.12 | 08/18/2018905 PDT | + + + + in [...] | | | | | | | ([facility]), Status post | | | | | | | emergency | | | | | | | tracheotomy for | | | | | | | assistance in | | | | | | | breathing ([facility]), | | | | | | | Chronic obstructive | | | | | | | pulmonary disease, | | | | | | | unspecified COPD | | | | | | | type ([facility]) | | | | | | [...] encounter Progress Notes Sterling Thomas MD - 08/18/2018 0850 PDTFormatting of this note may be different from the original. Hematology-Oncology Progress Note [facility] Pt. Name/Age/: Crystal Sadler 62 y.o. 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 Assessment and plan: Patient continues to have the expected local regional side effects from the radiation and c hemotherapy. From a medical oncology standpoint, the main issue is her elevated liver tests , either a direct effect of the cis-inaja (since they were normal prior to initiation of chemotherapy) or perhaps exacerbation of pre-existing liver disease by the drug given her re ported history of heavy alcohol and drug use until the . 1. Given that liver function tests are substantially better, we will go ahead with another dose of cisplatin 40 mg/m. Subjective: The patient chart and medications were reviewed in detail and the patient was seen and exam ined. Crystal Sadler is a 62 y.o. female with laryngeal cancer here for treatment. Patient's most recent chemotherapy infusions are as follows: Chemotherapy 07/13/2018 08/10/2018 Day, Cycle Day 1, Cycle 1 Day 1, Week 1 CISplatin (PLATINOL) IV 100 mg/m2 40 mg/m2 Recall that we switched patient's cis-inaja dosing to 40 mg/m last week due to the pro gressive elevation of her liver function tests while on the drug. She reports no new side e ffects, specifically no new paresthesias. No fevers. Main issue is slowly progressive pain on both the skin of her neck as well as in swallowing, mild relief with hydrocodone, Magic mouthwash. No fevers. PMH: Past Medical History: Diagnosis Date [...] Review of Systems: REVIEW OF SYSTEMS Constitutional: Energy level is low. Neck pain keeps her awake at night. Reports nausea, no vomiting. Reports everything tastes bad. Appetite is low. Down 4 lbs since 08/12/18. Cl es high fevers, shaking chills, anorexia, vomiting, weight loss, or night sweats. Ear, Nose, Mouth, Throat: Reports one sore in her mouth, not painful. Reports dysphagia and painful swallowing. Denies tinnitus. Cardiovascular: Reports shortness of breath at times. Typically changing the inner cannula of her trach helps this. Reports a pressure like chest pain when her throat gets really sore . Can feel her heart beating in her throat. Denies dyspnea on exertion, palpitations or or thopnea. Respiratory: Reports cough with sputum, ranges in color from white to green to brown. Denie s Hemoptysis. Gastrointestinal: Reports constipation, states she had a BM this morning but it was hard. D enies abdominal pain, diarrhea, melena, or bright red blood per rectum. Genitourinary: Denies hematuria or dysuria. Musculoskeletal: Joint pain continues, unchanged. Neurologic: Reports vision is blurry, even with her glasses. Reports feeling light headed l ately, states she had a near syncopal episode yesterday after radiation. Denies headache or numbness/tingling of the extremities. Endocrine: Denies peripheral edema or heat/cold intolerance. Hematologic: Denies spontaneous bruising or bleeding. Integumentary: Reports neck is painful and burnt. Pain: 6/10 neck pain, hasn't taken anything for pain today. Last hydrocodone last night. Note: Here for follow up, labs and [...] 1 tablet by mouth nightly as needed. nilrsxkbmfAMVAM-zvkrkegex-bcyzrldf & magnesium hydroxide-simethicone (MAGIC MOUTHWASH) Take 5 [...] (See Comments) unknown Vitals: Temp: 36.8 C (98.2 F) BP: 120/72 Pulse: 78 Resp: 18 SpO2: 98 % on Temp :Temp Av.8 C (98.2 F) Min: 36.8 C (98.2 F) Max: 36.8 C (98.2 F) No intake or output data in the 24 hours ending 08/18/18 0945 Wt. Current: Weight: 65.1 kg (143 lb 8.3 oz) Physical Exam: Exam: ECOG Performance Status: 2 General: The patient is alert and oriented. Looks uncomfortable. Trach in place. HEENT: PERRL, Oral mucosa intact but dry. Significant erythema around the neck and the tr acheostomy site. Minimal drainage. Non-icteric. Extremities: Nontender, no erythema, no edema. Skin: No rashes, bruising, or petechiae. See above Lymph: No palpable nodes in the neck, supraclavicular fossa, . Psychiatric: Anxious mood and affect. Appropriate. Diagnostic studies: Available data and image reports were reviewed personally. See reports. Significant resul ts and findings are addressed here or in the Assessment and Plan. Recent Labs Lab 08/18/18 0849 WBC 5.2 HGB 13.4 HCT 39.6 PLT 231 Recent Labs Lab 08/18/18 0849 NA 130* K 4.4 CL 97* CO2 25 BUN 11 CREA 0.61 GLU 348* MG 1.7* CALCIUM 9.3 BILITOT 0.4 AST 45* ALT 83* ALKPHOS 84 ALBUMIN 3.1* Electronically signed by: Sterling Thomas MD 08/18/2018 9:45 CC: Yeyo Anderson DO Portions of this chart may have been created with [employer] voice recognition software. Occasi onal wrong-word or [...] [place] | | | | | | [address] | | | | | | [phone] | | | | | | | [...]
--- OUTSIDE RECORDS SUMMARY | ~2018-08-25 | XMS | Encounter Summary ---
Demographics + + + | Address | [address] | | | [place] [address] | + + + | Home Phone | | + + + | Preferred Language | Unknown | + + + | Marital Status | Single | + + + | Caodaism Affiliation | Unknown | + + + | Race | Unknown | + + + | Ethnic Group | Unknown | + + + Author + + + | Author | [facility] | | | and [place] | + + + | Organization | [facility] [...] Team Providers + +------+ + | Care Health And Wellness Coach Name | Role | Phone | [...] | | | Therapy | Malignant | Streling A, MD | Infusion [address] | | | | | neoplasm of | [address] | | | | | larynx, | [address] | [place], | | | | | unspecified | [place], | [place] [address] | | | | | (HCC) | [place] | Phone: | | | | | Procedures | [address] | [phone] | | | | | [place] IV | Phone: | Fax: | | | | | INFUSION, | [phone] | [phone] | | | | | HYDRATION, | Fax: | | | | | | 31-60 MIN | [phone] | | | | | | [place] IV | | | | | | | INFUSION, | | | | | | | HYDRATION, | | | | | | | EA ADD HOUR | | | | | | | [place] | | | | | | | ONDANSETRON | | | | | | | ORAL [place] | | | | | | | ORAL | | | | | | | DEXAMETHASON | | | | | | | E, .25 MG | | | | | | | [place] | | | | | | | CHEMOTHERAPY | | | | | | | DRUG [place] | | | | | | | CISPLATIN 10 | | | | | | | MG | | | | | | | INJECTION | | | | | | | [place] ADRENALIN | | | | | | | EPINEPHRINE | | | | | | | INJECT, .1 | | | | | | | MG [place] | | | | | | | DIPHENHYDRAM | | | | | | | INE HCL | | | | | | | INJECTIO, 50 | | | | | | | MG [place] | | | | | | | METHYLPREDNI | | | | | | | SOLONE | | | | | | | INJECTION, | | | | | | | 125 MG [place] | | | | | | | ALBUTEROL | | | | | | | COMP CON, 1 | | | | | | | MG [place] | | | | | | | ALBUTEROL | | | | | | | NON-COMP | | | | | | | CON, 1 MG | | | | | | | [place] | | | | | | | INJECTION, | | | | | | | FAMOTIDINE, | | | | | | | 20 MG [place] | | | | | | | NORMAL | | | | | | | SALINE | | | | | | | SOLUTION | | | | | | | INFUS, 500 | | | | | | | ML [place] | | | | | | | NORMAL | | | | | | | SALINE | | | | | | | SOLUTION | | | | | | | INFUS, 250 | | | | | | | ML [place] | | | | | | | STERILE | | | | | | | WATER/SALINE | | | | | | | , 10 ML [place] | | | | | | | CHEMOTHER, | | | | | | | IV PUSH,EA | | | | | | | ADD DRUG [place] | | | | | | | CHEMOTHER, | | | | | | | IV INFUSION, | | | | | | | 1 HR [place] | | | | | | | CHEMOTHER, | | | | | | | IV INFUSION, | | | | | | | EA HR [place] | | | | | | | CHEMOTHER,NO | | | | | | | N-HORMONE | | | | | | | ANTI-NEOPL, | | | | | | | SUB-Q/IM [place] | | | | | | | [...] + + | 08/11/ | Hospital | [facility] | Sterling Thomas, | 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 | | | | INFUSION [address] | [place], [place] | ([facility]); Encounter for | | | | [place], | [address] | antineoplastic | | | | [place] [address] | [phone] | chemotherapy | | | | [phone] | | | +--------+ + + + [...] | | | | | ([facility]), Status post | | | | | | | emergency | | | | | | | tracheotomy for | | | | | | | assistance in | | | | | | | breathing ([facility]), | | | | | | | Chronic obstructive | | | | | | | pulmonary disease, | | | | | | | unspecified COPD | | | | | | | type ([facility]) | | | | | | + [...] without questions. Candida Smart RN - 08/11/2018 4455 PDTEnergy level: Fair to g ood Fever [...] [place] | | | | | | [place], [place] | | | | | | [id number] | | | | | | | | +--------+ + + + + | 09/15/ | Appointment | Oncology | WilliamSterling, | | | 2017 | | | MD [address] | | | | | | [place] | | | | | | [address] | | | | | | [phone] | | | | | | | [...]
--- OUTSIDE RECORDS SUMMARY | ~2018-08-25 | XMS | Encounter Summary ---
Demographics + + + | Address | [address] | | | [place] [address] | + + + | Home Phone | | + + + | Preferred Language | Unknown | + + + | Marital Status | Single | + + + | Sabianist Affiliation | Unknown | + + + | Race | Unknown | + + + | Ethnic Group | Unknown | + + + Author + + + | Author | [facility] | | | and [place] | + + + | Organization | [facility] | | | and Mikeana [...] Team Providers + +------+ + | Care Scuba Instructor Name | Role | Phone | + [...] neoplasm of | [address] | | | | | larynx, | [place] | [place], | | | | | unspecified | [place], | [place] [address] | | | | | (HCC) | [place] | Phone: | | | | | Procedures | [address] | [phone] | | | | | [place] IV | Phone: | Fax: | | | | | INFUSION, | [phone] | [phone] | | | | | HYDRATION, | Fax: | | | | | | 31-60 MIN | [phone] | | | | | | [place] IV | | | | | | | INFUSION, | | | | | | | HYDRATION, | | | | | | | EA ADD HOUR | | | | | | | [place] | | | | | | | ONDANSETRON | | | | | | | ORAL SD | | | | | | | ORAL | | | | | | | DEXAMETHASON | | | | | | | E, .25 MG | | | | | | | SD | | | | | | | CHEMOTHERAPY | | | | | | | DRUG SD | | | | | | | CISPLATIN 10 | | | | | | | MG | | | | | | | INJECTION | | | | | | | SD ADRENALIN | | | | | | | EPINEPHRINE | | | | | | | INJECT, .1 | | | | | | | MG SD | | | | | | | DIPHENHYDRAM | | | | | | | INE HCL | | | | | | | INJECTIO, 50 | | | | | | | MG SD | | | | | | | METHYLPREDNI | | | | | | | SOLONE | | | | | | | INJECTION, | | | | | | | 125 MG SD | | | | | | | ALBUTEROL | | | | | | | COMP CON, 1 | | | | | | | MG SD | | | | | | | ALBUTEROL | | | | | | | NON-COMP | | | | | | | CON, 1 MG | | | | | | | SD | | | | | | | INJECTION, | | | | | | | FAMOTIDINE, | | | | | | | 20 MG SD | | | | | | | NORMAL | | | | | | | SALINE | | | | | | | SOLUTION | | | | | | | INFUS, 500 | | | | | | | ML SD | | | | | | | NORMAL | | | | | | | SALINE | | | | | | | SOLUTION | | | | | | | INFUS, 250 | | | | | | | ML SD | | | | | | | STERILE | | | | | | | WATER/SALINE | | | | | | | , 10 ML SD | | | | | | | CHEMOTHER, | | | | | | | IV PUSH,EA | | | | | | | ADD DRUG SD | | | | | | | CHEMOTHER, | | | | | | | IV INFUSION, | | | | | | | 1 HR SD | | | | | | | CHEMOTHER, | | | | | | | IV INFUSION, | | | | | | | EA HR SD | | | | | | | CHEMOTHER,NO | | | | | | | N-HORMONE | | | | | | | ANTI-NEOPL, | | | | | | | SUB-Q/IM [place] | | | | | | | [...] + + | 08/25/ | Hospital | [facility] | Sterling Thomas, | 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 | | | | INFUSION [address] | [place] | (HCC) (Primary Dx) | | | | [place], | [address] | | | | | [place] [address] | [phone] | | | | | [phone] | | | +--------+ + + + [...] | | | | | | [place] | | | | | | [address] | | | | | | | | +--------+ + + + + | 09/15/ | Appointment | Oncology | William Sterling Masetrs, | | | 2017 | | | MD [address] | | | | | | [place] | | | | | | [address] | | | | | | [phone] | | | | | | | [...]
--- OUTSIDE RECORDS SUMMARY | ~2018-08-25 | XMS | Encounter Summary ---
Demographics + + + | Address | [address] | | | [place] [address] | + + + | Home Phone [...] + | Author | [facility] | | | and [place] | + + + | Organization | [facility] | | [...] Team Providers + +------+ + | Care Financial Reserve Clerk Name | Role | Phone | + [...] | carcinoma of | [address] | [address] [place] | | | | | larynx | [place], | [place], | | | | | (HCC) | [place] | [place] [address] | | | | | | [address] | Phone: | | | | | | Phone: | [phone] | | | | | | [phone] | Fax: | | | | | | Fax: | [phone] | | | | | | [phone] | | +--------+ + + + + [...] | ONCOLOGY CLINIC [address] | [place] | | | | | [address] [place] | [address] | | | | | [place] [address] | [phone] | | | | | [phone] | | | +--------+ + + + [...] [place] | | | | | | [address] | | | | | | [phone] | | | | | | | [...] | + +--------+ + + | * [facility] Nutrition Services - AMB | Routin | [...]
--- OUTSIDE RECORDS SUMMARY | ~2018-08-25 | XMS | Encounter Summary ---
Demographics + + + | Address | [address] | | | [place] [address] | + + + | Home Phone [...] Author + + + | Author | [facility] | | | and [place] | + + + | Organization | [facility] | | | and [...] Team Providers + +------+ + | Care Clinical Services Assistant Name | Role | Phone | + +------+ + | Yeyo Anderson DO | PCP | | + +------+ + Encounter Details +--------+ + + + + | Date | Type | Department | Care Team | Description | +--------+ + + + + | 08/10/ | Documentati | [facility] Laisha Wilson | | | 2018 | on | MED CTR THERAPY OT | A, OT | | | | | OP [address] | | | | | | [place], [place] | | | | | | [address] | | | | | | [phone] | | | +--------+ + + + [...] Laisha Wilson OT - 08/10/2018 [facility] [address] [place] [address] Oncology Rehab Screening Date: 08/10/2018 Patient Information [...] Patient is currently residing at the local [facility] due to she lives out of town. She did have home health services initially after h ospital d/c at her home in [place] to assist with her tracheostomy. She was going to have BEEHIVE KILN SUPERVISOR services but then HH was d/c'd after she moved into [facility] locally during her tx . Patient reports she tries to keep her swallow "strong"; she states she does struggle with certain food textures. Erythema present on neck due to radiation. Some limitations in ROM due to trach tubing, but patient has functional ROM. Encouraged patient to move neck as mu ch as possible to maintain ROM. Patient to benefit from BEEHIVE KILN SUPERVISOR intervention to assist with laurita ntaining strong swallow and speech function during treatment. Patient agreeable. Will requ est BEEHIVE KILN SUPERVISOR order from MD and request BEEHIVE KILN SUPERVISOR to coordinate tx with patient's rad/chemo appts [...] [place] | | | | | | [address] | | | | | | [phone] | | | | | | | | +--------+ + + + + | 09/15/ | Appointment | Nutrition | Joselin Falcon, | | | 2017 | | | RDN | | +--------+ + + + + as of this encounter Visit Diagnoses Not on filein this encounter
--- OUTSIDE RECORDS SUMMARY | ~2018-08-25 | XMS | Encounter Summary ---
Demographics + + + | Address | [address] | | | [place] [address] | + + + | Home Phone [...] Author | [facility] | | | and [place] | + + + | Organization | [facility] [...] Team Providers + +------+ + | Care Nailing Machine Operator Name | Role | Phone [...] | cell | MD [address] | [place] | | | | | carcinoma of | [address] | [place], [place] | | | | | larynx | [place], | [address] | | | | | (HCC) | [place] [address] | Phone: | | | | | Procedures | Phone: | [phone] | | | | | PET CT Skull | [phone] | Fax: | | | | | Base To Mid | Fax: | [phone] | | | | | Thigh | [phone] | | +--------+--------+ + + + + [...] | cell | MD [address] | [place] | | | | | carcinoma of | [address] | [place], [place] | | | | | larynx | [place], | [address] | | | | | ([facility]) | [place] [address] | Phone: | | | | | Procedures | Phone: | [phone] | | | | | PET CT Skull | [phone] | Fax: | | | | | Base To Mid | Fax: | [phone] | | | | | Thigh | [phone] | | +--------+--------+ + + + + [...] | cell | MD [address] | [place] | | | | | carcinoma of | [address] | [place], [place] | | | | | larynx | [place], | [address] | | | | | ([facility]) | [place] [address] | Phone: | | | | | Procedures | Phone: | [phone] | | | | | PET CT Skull | [phone] | Fax: | | | | | Base To Mid | Fax: | [phone] | | | | | Thigh | [phone] | | +--------+--------+ + + + + Encounter Details +--------+ + + + + | Date | Type | Department | Care Team | Description | +--------+ + + + + | 07/01/ | Hospital | [facility] | Estefanía Hairston | 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 | | | | [address] [place] | [address] [place] | ([facility]) | | | | [place] [address] | [id number] | | | | | [phone] | | | +--------+ + + + [...] | | | | | ([facility]), Status post | | | | | | | emergency | | | | | | | tracheotomy for | | | | | | | assistance in | | | | | | | breathing ([facility]), | | | | | | | Chronic obstructive | | | | | | | pulmonary disease, | | | | | | | unspecified COPD | | | | | | | type ([facility]) | | | | | | [...] [place] | | | | | | [address] | | | | | | [phone] | | | | | | | [...] in the | | | | | ([facility]) | results section. | + +--------+ + [...] millicur | | | | Intravenous, ONCE, [facility] 07/01/18 at | | PDT | ies | | | | 1115, For 1 dose | | | | | | + +--------+ + +------+------+ +---+---+ | | | +---+---+ in this encounter"
--- OUTSIDE RECORDS SUMMARY | ~2018-08-25 | XMS | Encounter Summary ---
Demographics + + + | Address | [address] | | | [place] [address] | + + + | Home Phone | | + + + | Preferred Language | Unknown | + + + | Marital Status | Single | + + + | Mandaen Affiliation | Unknown | + + + | Race | Unknown | + + + | Ethnic Group | Unknown | + + + Author + + + | Author | [facility] | | | and [place]ana | + + + | Organization | [facility] | | | and [place]ana | [...] Team Providers + +------+ + | Care Neonatologist Name | Role | Phone | + +------+ + | Yeyo Anderson DO | PCP | | + +------+ + Encounter Details +--------+ + + + + | Date | Type | Department | Care Team | Description | +--------+ + + + + | 08/18/ | Nurse Only | [facility] | Arabella | | | 2017 | | [facility] | [facility] | | | | | ONCOLOGY CLINIC [address] | | | | | | [address] | | | | | | [place] [address] | | | | | | [phone] | | | +--------+ + + + [...] + + + | Blood Pressure | 133/82 | 08/18/2018 1500 PDT | + + + + | Pulse | 79 | 08/18/2018 1500 PDT | + + + + | Temperature | 36.1 C (96.9 F) | 08/18/2018 1500 PDT | + + + + | Respiratory Rate | 18 | 08/18/2018 1500 PDT | + + + + | Oxygen Saturation | 94% | 08/18/2018 1500 PDT | + + + + | Inhaled Oxygen | - | - | | Concentration | | | + + + + | Weight | - | - | + + + + | Height | - | - | + + + + | Body Mass Index | - | - | + + + + in this encounter Progress Notes Jennifer Bell, MALU - 08/18/2018 1459 PDTPatient seen today after radiation treatment du e to dizziness and nausea when getting up off the table after radiation treatment. Patient b rought back to exam room, patient assessed- denies pain, chest tightness, SOB, nausea, vomit ing, and dizziness. Vitals taken see flow sheet, stable. Patient states that her dizziness i s resolved and no longer experiencing the nausea as reported to me, she states that it only lasted a few minutes after treatment "maybe because it was right after chemo and then laying on that table". Patient states that she has been having intermittent dizziness at night as well as continued nausea. Patient says she was advised to see PCP for issues with her blood sugar and diabetes as perhaps the symptoms are related, BS checked in chemo infusion room to day was 342, patient is concerned about getting into see her primary doctor due to having tr eatments and only being home in [place] on the weekends. Dr. Hairston notified of symptoms that patient has been experiencing, she advises patient to be evaluated at the urgent [facility]. Patient informed, verbalizes agreement and understanding, provided a map and instructi ons on how to get to the urgent care. Patient has no further questions at this time. Ignacio notified of difficulties that patient has been having with dizziness, she looking into accomodations for more appropriate placement at the [facility] as patient is currently o n the second floor.in this encounter Plan of Treatment +--------+ + + + + | Date | Type | Specialty | Care Team | Description | +--------+ + + + + | 08/26/ | Appointment | Radiation Oncology | Estefanía Hairston | | | 2017 | | | MD Guero Warner | | | | | | [place] | | | | | | [phone] | | | | | | | | +--------+ + + + + | 09/15/ | Appointment | Oncology | Sterling Thomas, | | | 2017 | | | MD [address] | | | | | | [place] | | | | | | [address] | | | | | | [phone] | | | | | | | | +--------+ + + + + | 09/15/ | Appointment | Nutrition | Joselin Falcon, | | | 2018 | | | RDN | | +--------+ + + + + as of this encounter Visit Diagnoses Not on filein this encounter
--- OUTSIDE RECORDS SUMMARY | ~2018-08-25 | XMS | Encounter Summary ---
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 | | | | | | [place] PLAN | | | +--------+--------+ + + + + Encounter Details +--------+ + + + + | Date | Type | Department | Care Team | Description | +--------+ + + + + | 07/01/ | Hospital | [facility] | Estefanía Hairston | 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 | | | | [place], | [place], [place] | ([facility]) | | | | [place] [address] | [address] | | | | | [phone] | | | +--------+ + + + [...] | | | | | ([facility]), Status post | | | | | | | emergency | | | | | | | tracheotomy for | | | | | | | assistance in | | | | | | | breathing ([facility]), | | | | | | | Chronic obstructive | | | | | | | pulmonary disease, | | | | | | | unspecified COPD | | | | | | | type ([facility]) | | | | | | + [...] [place] | | | | | | [address] | | | | | | [phone] | | | | | | | [...] the | | | | | ([facility]) | results section. | + +--------+ + [...]
--- OUTSIDE RECORDS SUMMARY | ~2018-08-25 | XMS | Encounter Summary ---
Demographics + + + | Address | [address] | | | [place] [address] | + + + | Home Phone [...] Author | [facility] | | | and [place]ana | + + + | Organization | [facility] | | | and [place]ana [...] Team Providers + +------+ + | Care Plasterer Spot Name | Role | Phone | + [...] | | ONCOLOGY CLINIC [address] | [place], [place] | | | | | [address] [place] | [address] | | | | | [place] [address] | | | | | | [phone] | | | +--------+ + + + [...] [place] | | | | | | [address] | | | | | | [phone] | | | | | | | [...]
--- OUTSIDE RECORDS SUMMARY | ~2018-08-25 | XMS | Encounter Summary ---
Demographics + + + | Address | [address] | | | [place] [address] | + + + | Home Phone | | + + + | Preferred Language | Unknown | + + + | Marital Status | Single | + + + | Temple Affiliation | Unknown | + + + | Race | Unknown | + + + | Ethnic Group | Unknown | + + + Author + + + | Author | [facility] | | | and [place] | + + + | Organization | [facility] | [...] Team Providers + +------+ + | Care Slip Feeder Name | Role | Phone | + [...] neoplasm of | [address] | [address] | | | | | larynx, | [address] | [place], | | | | | unspecified | [place], | [place] [address] | | | | | (HCC) | [place] | Phone: | | | | | Procedures | [address] | [phone] | | | | | GA IV | Phone: | Fax: | | | | | INFUSION, | [phone] | [phone] | | | | | HYDRATION, | Fax: | | | | | | 31-60 MIN | [phone] | | | | | | GA IV | | | | | | | INFUSION, | | | | | | | HYDRATION, | | | | | | | EA ADD HOUR | | | | | | | GA | | | | | | | ONDANSETRON | | | | | | | ORAL GA | | | | | | | ORAL | | | | | | | DEXAMETHASON | | | | | | | E, .25 MG | | | | | | | GA | | | | | | | CHEMOTHERAPY | | | | | | | DRUG GA | | | | | | | CISPLATIN 10 | | | | | | | MG | | | | | | | INJECTION | | | | | | | GA ADRENALIN | | | | | | | EPINEPHRINE | | | | | | | INJECT, .1 | | | | | | | MG GA | | | | | | | DIPHENHYDRAM | | | | | | | INE HCL | | | | | | | INJECTIO, 50 | | | | | | | MG GA | | | | | | | METHYLPREDNI | | | | | | | SOLONE | | | | | | | INJECTION, | | | | | | | 125 MG GA | | | | | | | ALBUTEROL | | | | | | | COMP CON, 1 | | | | | | | MG GA | | | | | | | ALBUTEROL | | | | | | | NON-COMP | | | | | | | CON, 1 MG | | | | | | | GA | | | | | | | INJECTION, | | | | | | | FAMOTIDINE, | | | | | | | 20 MG GA | | | | | | | NORMAL | | | | | | | SALINE | | | | | | | SOLUTION | | | | | | | INFUS, 500 | | | | | | | ML GA | | | | | | | NORMAL | | | | | | | SALINE | | | | | | | SOLUTION | | | | | | | INFUS, 250 | | | | | | | ML GA | | | | | | | STERILE | | | | | | | WATER/SALINE | | | | | | | , 10 ML GA | | | | | | | CHEMOTHER, | | | | | | | IV PUSH,EA | | | | | | | ADD DRUG GA | | | | | | | CHEMOTHER, | | | | | | | IV INFUSION, | | | | | | | 1 HR GA | | | | | | | CHEMOTHER, | | | | | | | IV INFUSION, | | | | | | | EA HR GA | | | | | | | CHEMOTHER,NO | | | | | | | N-HORMONE | | | | | | | ANTI-NEOPL, | | | | | | | SUB-Q/IM GA | | | | | | | [...] + + | 08/12/ | Hospital | [facility] | Sterling Thomas, | Canceled (OTHER) | | 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 | MED CTR CHEMO | MD [address] | | | | | INFUSION [address] | [place], [place] | | | | | [place], | [address] | | | | | [place] [address] | [phone] | | | | | [phone] | | | +--------+ + + + [...] [place] | | | | | | [address] | | | | | | | | +--------+ + + + + | 09/15/ | Appointment | Oncology | Sterling Thomas, | | | 2017 | | | [address] | | | | | | [place] | | | | | | [address] | | | | | | [phone] | | | | | | | | +--------+ + + + + | 09/15/ | Appointment | Nutrition | Joselin Falcon, | | | 2017 | | | RDN | | +--------+ + + + + as of this encounter Visit Diagnoses Not on filein this encounter"
--- OUTSIDE RECORDS SUMMARY | ~2018-08-25 | XMS | Encounter Summary ---
Demographics + + + | Address | [address] | | | [place] [address] | + + + | Home Phone [...] + | Author | [facility] | | | and [place] | + + + | Organization | [facility] | | [...] Team Providers + +------+ + | Care Cracker Sprayer Name | Role | Phone | + +------+ + | Yeyo Anderson DO | PCP | | + +------+ + Reason for Visit +--------+ + | Reason | Comments | +--------+ + | Other | | +--------+ + Encounter Details +--------+ + + + + | Date | Type | Department | Care Team | Description | +--------+ + + + + | 08/19/ | Telephone | [facility] | Yoan Paredes DO | Other | | 2017 | | MED CTR RADIATION | [address] | | | | | ONCOLOGY CLINIC [address] | [place], [place] | | | | | [address] [place] | [address] | | | | | [place] [address] | | | | | | [phone] | | | +--------+ + + + [...] [place] | | | | | | [address] | | | | | | | | +--------+ + + + + | 09/15/ | Appointment | Oncology | Sterling Thomas, | | | 2017 | | | MD [address] | | | | | | [place] | | | | | | [address] | | | | | | [phone] | | | | | | | | +--------+ + + + + | 09/15/ | Appointment | Nutrition | Joselin Falcon, | | | 2018 | | | RDN | | +--------+ + + + + as of this encounter Visit Diagnoses Not on filein this encounter"
--- OUTSIDE RECORDS SUMMARY | ~2018-08-25 | XMS | Encounter Summary ---
Demographics + + + | Address | [address] | | | [place] [address] | + + + | Home Phone | | + + + | Preferred Language | Unknown | + + + | Marital Status | Single | + + + | Adventism Affiliation | Unknown | + + + | Race | Unknown | + + + | Ethnic Group | Unknown | + + + Author + + + | Author | [facility] | | | and [place] | + + + | Organization | [facility] | | | and [place] [...] Team Providers + +------+ + | Care Labor Contract Analyst Name | Role | Phone | + [...] | | | | (HCC) | [place] [address] | [place], [place] | | | | | | Phone: | [phone] Phone: | | | | | | [phone] | [phone] | | | | | | Fax: | Fax: | | | | | | [phone] | [phone] | + + + + + + + Encounter Details +--------+ + + + + | Date | Type | Department | Care Team | Description | +--------+ + + + + | 06/29/ | Hospital | [facility] | Aneudy, | No Show | | 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 | MED CTR MEDICAL | MD Guero Levy [address] | | | | | ONCOLOGY CLINIC [address] | [address] [place] | | | | | [place] | [place] [address] | | | | | [place] [address] | [phone] | | | | | [phone] | | | +--------+ + + + [...] [place] | | | | | | [address] | | | | | | | | +--------+ + + + + | 09/15/ | Appointment | Oncology | Sterling Thomas, | | | 2017 | | | MD [address] | | | | | | [place] | | | | | | [address] | | | | | | [phone] | | | | | | | | +--------+ + + + + | 09/15/ | Appointment | Nutrition | Joselin Falcon, | | | 2018 | | | RDN | | +--------+ + + + + as of this encounter Visit Diagnoses Not on filein this encounter"
--- OUTSIDE RECORDS SUMMARY | ~2018-08-25 | XMS | Encounter Summary ---
Demographics + + + | Address | [address] | | | [place] [address] | + + + | Home Phone [...] Team Providers + +------+ + | Care Gas Tester Name | Role | Phone | + +------+ + PCP | Unavailable | + +------+ + Encounter Details +--------+ + + + + | Date | Type | Department | Care Team | Description | +--------+ + + + + | 06/25/ | Hospital | [facility] | Estefanía Hairston | | | 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 | MED CTR RADIATION | MD Alana [address] | | | | | ONCOLOGY [address] | [place], [place] | | | | | [place], | [address] | | | | | [place] [address] | | | | | | [phone] | | | +--------+ + + + [...] | | | | ([facility]), Status post | | | | | | | emergency | | | | | | | tracheotomy for | | | | | | | assistance in | | | | | | | breathing ([facility]), | | | | | | | Chronic obstructive | | | | | | | pulmonary disease, | | | | | | | unspecified COPD | | | | | | | type ([facility]) | | | | | | [...] [place] | | | | | | [address] | | | | | | [phone] | | | | | | | | +--------+ + + + + | 09/15/ | Appointment | Nutrition | Joselin Falcon, | | | 2018 | | | RDN | | +--------+ + + + + as of this encounter Visit Diagnoses Not on filein this encounter"
--- OUTSIDE RECORDS SUMMARY | ~2018-08-25 | XMS | Encounter Summary ---
Demographics + + + | Address | [address] | | | [place] [address] | + + + | Home Phone | | + + + | Preferred Language | Unknown | + + + | Marital Status | Single | + + + | Holiness Affiliation | Unknown | + + + | Race | Unknown | + + + | Ethnic Group | Unknown | + + + Author + + + | Author | [facility] | | | and [place] | + + + | Organization | [facility] | | | and [place] [...] Team Providers + +------+ + | Care Bulk Plant Operator Name | Role | Phone | + +------+ + | Yeyo Anderson DO | PCP | | + +------+ + Encounter Details +--------+ + + + + | Date | Type | Department | Care Team | Description | +--------+ + + + + | 08/25/ | Hospital | [facility] | Sterling Thomas, | 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 Hematology-Oncology Progress Note [facility] Pt. Name/Age/: Crystal Sadler 62 y.o. 1955 CSN: [id number] Date of service: 08/25/2018 Provider: Sterling Thomas [...] be in 2 3 months, organized by [facility] oncology. 1. Hold the final cycle of [...] 1 tablet by mouth nightly as needed. monpfotaxuPWSVQ-rxoedsbma-lilgiikt & magnesium hydroxide-simethicone (MAGIC MOUTHWASH) Take 5 [...] this chart may have been created with [employer] voice recognition software. Occasi onal wrong-word or [...] [address] | | | | | | [place], [place] | | | | | | [id number] | | | | | | | | +--------+ + + + + | 09/15/ | Appointment | Oncology | Sterling Thomas, | | | 2017 | | | [address] | | | | | | [place] | | | | | | [address] | | | | | | [phone] | | | | | | | [...] in the | | | | | ([facility]) | results section. | + +--------+ + + + | MAGNESIUM | STAT | 08/25/2018 | Squamous cell | Results for this | | | | 0744 PST | carcinoma of larynx | procedure are in the | | | | | ([facility]) | results section. | + +--------+ + + + | COMPREHENSIVE | STAT | 08/25/2018 | Squamous cell | Results for this | | METABOLIC PANEL | | 0744 PST | carcinoma of larynx | procedure are in the | | | | | ([facility]) | results section. | + +--------+ + + + in this encounter Results Magnesium (08/25/2018743) + +-------+ + + | Component | Value | Ref Range | Performed At | + +-------+ + + | Magnesium | 1.8 | 1.8 - 2.5 mg/dL | [facility] | | | | | [facility] | | | | | [facility] - [...] [address] | [place] | [phone] | | [facility] | | [address] | | | - LABORATORY | | | | + + + + + | [facility] | [address] | [place] | | | [facility] | | [address] | | | - LABORATORY | | | | + + + + + CBC with Differential (08/25/201844) + + + + + | Component | Value | Ref Range | Performed At | + + + + + | WBC | 4.0 | 4.0 - 11.0 K/uL | [facility] | | | | | [facility] | | | | | [facility] - | | | | | LABORATORY | + + + + + | RBC | 4.27 | 3.70 - 5.20 M/uL | [facility] | | | | | [facility] | | | | | [facility] - [...] + | [facility] | [address] | [place] | [phone] | | [facility] | | [address] | | | - LABORATORY | | | | + + + + + | [facility] | [address] | [place] | | | [facility] | | [address] | | | - LABORATORY | | [...] >=60 mL/min/1.73m2 | [facility] | | POLISH | FILTRATION | | [facility] | | | RATE,ESTIMATED mL/min | | CENTER - | | | /1.21q2Jcwf than 60 | | LABORATORY | | [...] [facility] | | | | | [facility] | | | | | CENTER - | | | | | LABORATORY | + + + + + | ALBUMIN | 3.1 (L) | 3.2 - 5.0 g/dL | [facility] | | | | | [facility] | | | | | CENTER - | | | | | LABORATORY | + + + + + | Bilirubin Total | 0.4Comment: This is an | 0.1 - 1.5 mg/dL | [facility] | | | appended report. These | | [facility] | | | results have [...] + | [facility] | 19.0 | | [facility] | | | | | [facility] | | | | | CENTER - [...] [address] | [place] | [phone] | | [facility] | | [address] | | | - LABORATORY | | | | + + + + + | [facility] | [address] | [place] | | | [facility] | | [address] | | | - LABORATORY | | [...]
--- OUTSIDE RECORDS SUMMARY | ~2018-08-25 | XMS | Encounter Summary ---
Demographics + + + | Address | [address] | | | [place] [address] | + + + | Home Phone [...] Author | [facility] | | | and [place] | + + + | Organization | [facility] | | | and [...] Team Providers + +------+ + | Care Ad Clerk Name | Role | Phone | [...] | carcinoma of | [address] | [address] | | | | | larynx | [place], | [place], | | | | | (HCC) | [place] | [place] [address] | | | | | | [address] | Phone: | | | | | | Phone: | [phone] | | | | | | [phone] | Fax: | | | | | | Fax: | [phone] | | | | | | [phone] | | +--------+ + + + + + Encounter Details +--------+ + + + + | Date | Type | Department | Care Team | Description | +--------+ + + + + | 07/13/ | Hospital | [facility] | Sterling Thomas, | 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 | MED CTR NUTRITION | MD [address] | carcinoma of larynx | | | | SERVICES [address] | [place], [place] | ([facility]) | | | | [place], | [address] | | | | | [place] [address] | [phone] | | | | | [phone] | | | | | | | [...] | | | | | | breathing ([facility]), | | | | | | | Chronic obstructive | | | | | | | pulmonary disease, | | | | | | | unspecified COPD | | | | | | | type ([facility]) | | | | | | + [...] | | | | | | | ([facility]), Encounter for | | | | | [...] | | | | | | | ([facility]), Encounter for | | | | | [...] | | | | | | | ([facility]), Encounter for | | | | | [...] 1.5") BMI 26.68 Estimated needs (wt. 65kg) [id number] kcals/day 65-78 gm pro/day Medications: reviewed ASSESSMENT/PLAN: [...] [place] | | | | | | [address] | | | | | | [phone] | | | | | | | [...]
--- OUTSIDE RECORDS SUMMARY | ~2018-08-25 | XMS | Encounter Summary ---
Demographics + + + | Address | [address] | | | [place] [address] | + + + | Home Phone [...] Author | [facility] | | | and [place] | + + + | Organization | [facility] [...] Providers + +------+ + | Care Wood Finisher Apprentice Name | Role | Phone | + +------+ + | Yeyo Anderson DO | PCP | | + +------+ + Encounter Details +--------+ + + + + | Date | Type | Department | Care Team | Description | +--------+ + + + + | 07/13/ | Hospital | [facility] | Goyo Moe | 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 | J, 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 | | | | ONCOLOGY CLINIC [address] | [address] [place] | (HCC) (Primary Dx) | | | | [address] [place] | [place] [address] | | | | | [place] [address] | [phone] | | | | | [phone] | | | +--------+ + + + [...] | | | | | | | ([facility]), Status post | | | | | | | emergency | | | | | | | tracheotomy for | | | | | | | assistance in | | | | | | | breathing ([facility]), | | | | | | | Chronic obstructive | | | | | | | pulmonary disease, | | | | | | | unspecified COPD | | | | | | | type ([facility]) | | | | | | [...] | | | | | | | ([facility]), Encounter for | | | | [...] | | | | | | | ([facility]), Encounter for | | | | | | | antineoplastic | | | | | | | chemotherapy | | | | | | + + + +---------+ + + as of this encounter Progress Notes Goyo Moe, PharmD - 07/13/2018 1136 PDTFormatting of this note may be different fr om the original. Clinical Oncology Pharmacy Services Progress Note Chemotherapy Education Session [facility] Pt. Name/Age/: Crystal Sadler 62 y.o. 1955 Med. Record Number: [id number] Identifying Statement: Crystal Sadler is a 62 y.o. female from [address] [place] [address] with The encounter diagnosis was Squamous cell [...] [place] | | | | | | [address] | | | | | | [phone] | | | | | | | [...]
--- OUTSIDE RECORDS SUMMARY | ~2018-08-25 | XMS | Encounter Summary ---
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) (Primary Dx) | | | | [address] | [address] | | | | | [place] [address] | | | | | | [phone] | | | +--------+ + + + [...] Progress Notes Estefanía Hairston MD - 08/12/2018 0054 PDTFormatting of this note may be different [...] 1 tablet by mouth nightly as needed. xhdexwowarLKLMQ-kwvayuics-luzhcbyk & magnesium hydroxide-simethicone (MAGIC MOUTHWASH) Take 5 [...] [place] | | | | | | [id number] | | | | | | | | +--------+ + + + + | 09/15/ | Appointment | Oncology | Sterling Thomas, | | | 2017 | | | MD [address]LE | | | | | | [place] | | | | | | [address] | | | | | | [phone] | | | | | | | [...]
--- OUTSIDE RECORDS SUMMARY | ~2018-08-25 | XMS | Encounter Summary ---
Demographics + + + | Address | [address] | | | [place] [address] | + + + | Home Phone | | + + + | Preferred Language | Unknown | + + + | Marital Status | Single | + + + | Gnosticism Affiliation | Unknown | + + + | Race | Unknown | + + + | Ethnic Group | Unknown | + + + Author + + + | Author | [facility] | | | and Mikeana | + + + | Organization | [facility] | | | and Mikeana [...] Team Providers + +------+ + | Care Pilot Name | Role | Phone | + [...] neoplasm of | [address] [place] | | | | | larynx, | [address] | [place], | | | | | unspecified | [place], | [place] [address] | | | | | (HCC) | [place] | Phone: | | | | | Procedures | [address] | [phone] | | | | | [place] IV | Phone: | Fax: | | | | | INFUSION, | [phone] | [phone] | | | | | HYDRATION, | Fax: | | | | | | 31-60 MIN | [phone] | | | | | | [place] [...] + + | 07/15/ | Hospital | [facility] | Sterling Thomas, | 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 | | | | INFUSION [address] | [place], [place] | ([facility]); Encounter for | | | | [place], | [address] | antineoplastic | | | | [place] [address] | [phone] | chemotherapy | | | | [phone] | | | +--------+ + + + [...] ([facility]), Encounter for | | | | | [...] ([facility]), Encounter for | | | | | [...] | | | | [place] | | | | | | [id number] | | | | | | | | +--------+ + + + + | 09/15/ | Appointment | Oncology | Sterling Thomas, | | | 2017 | | | MD [address] | | | | | | [place] | | | | | | [address] | | | | | | [phone] | | | | | | | [...] | | | | | Care, Starting [facility] 07/15/18 at | | | | [...] | | | | | Minutes, ONCE, [facility] 07/15/18 at | | | | [...] | mL/hr | | | Intravenous, ONCE, [facility] 07/15/18 at | | PDT | [...]
--- OUTSIDE RECORDS SUMMARY | ~2018-08-25 | XMS | Encounter Summary ---
Demographics + + + | Address | [address] | | | [place] [address] | + + + | Home Phone [...] Author | [facility] | | | and Mikeana | + + + | Organization | [facility] | [...] Team Providers + +------+ + | Care Milking System Installer Name | Role | Phone | + [...] + + | 08/18/ | Hospital | [facility] | Estefanía Hairston | | | 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 | MED CTR NUTRITION | MD Alana [address] | | | | | SERVICES [address] | [place], [place] | | | | | [place], | [address] | | | | | [place] [address] | | | | | | [phone] | Joselin Falcon, | | | | [...] encounter Progress Notes Joselin Falcon RDN - 08/18/2018 1312 PDTFormatting of this note may be different from e original. Medical Nutrition Note SUBJECTIVE: Pt states she does not drink supplement, smoothies or milkshakes. Discussed h ow to make milkshakes with ensure which she thought she would like to make. Provided sample s of boost/ensure. UBW 143-145# she is 100% of UBW. OBJECTIVE: Diet: high calorie high protein Wt Readings from Last 3 Encounters: 08/18/18 65.1 kg (143 lb 8.3 oz) 08/12/18 66.9 kg (147 lb 7.8 oz) 08/10/18 66.3 kg (146 lb 2.6 oz) Ht Readings from Last 1 Encounters: 08/02/18 1.549 m (5' 1") Pt is able to meet nutritional needs at this time. Reviewed high calorie high protein beve rage recipes and provided samples of supplements. Time spent: 15 minutes Thank you for the referral, Joselin Falcon, RDN 08/18/2018 13:12 Per Velasquez, SPORTS NUTRITIONIST - 08/18/2018 1256 PDTFormatting of this note may be different from [facility] original. RT called to assess and suction tracheostomy in cancer center. Pt has light bleeding on the right side of her tracheostomy, it appears irritated and slightly bloody. While the left is scabbed over and appears to be healing well. This RT suctioned the pt x2 with small clear t o light green sputum was aspirated. Lung sounds appear vesicular and no SOB was reported at the time of assessment. The pt has good understanding of her a/w and how to appropriately ma nage it. 08/18/18 1135 Airway 06/08/181844 4 tracheostomy;nonfenestrated;uncuffed Placement Date/Time: 06/08/181844 Present On Admission: yes Size: 4 Airway Type: trach eostomy;nonfenestrated;uncuffed Performed By: Dr. Hines Tube Placement Verification breath sounds equal bilaterally Tube Site neck Tube Securement foam trach ties Tube Care/Reposition dressing changed;inner cannula cleaned;site care done;split sponge marlee ssing Appearance clean;reddened;swollen;bleeding;other (see comments) (Pt has light bleeding on the right side of her tracheostomy is irritated and slightly bloo dy. While the left is scabbed over and appears to be healing well. ) Cuff Pressure Assessment cuffless Trach device assistive speaking valve;continues wearing Trach device tolerance tolerated well Airway Care Interventions ~ Tracheostomy Tube Care ~ Performed ~ Speaking Valve Place/Remove ~ Performed Lines Drains & Airways Add Airway Yes in this encounter Plan of Treatment +--------+ [...] [place] | | | | | | [address] | | | | | | [phone] | | | | | | | | +--------+ + + + + | 09/15/ | Appointment | Nutrition | Joselin Falcon, | | | 2017 | | | RDN | | +--------+ + + + + as of this encounter Visit Diagnoses Not on filein this encounter
--- OUTSIDE RECORDS SUMMARY | ~2018-08-25 | XMS | Encounter Summary ---
Demographics + + + | Address | [address] | | | [place] [address] | + + + | Home Phone [...] Author | [facility] | | | and Mikeana | + + + | Organization | [facility] | | | and Mikeana [...] Team Providers + +------+ + | Care Streetcar Operator Name | Role | Phone | [...] neoplasm of | [address] | | | | | larynx, | [address] | [place], | | | | | unspecified | [place], | [place] [address] | | | | | (HCC) | [place] | Phone: | | | | | Procedures | [address] | [phone] | | | | | [place] IV | Phone: | Fax: | | | | | INFUSION, | [phone] | [phone] | | | | | HYDRATION, | Fax: | | | | | | 31-60 MIN | [phone] | | | | | | NC IV | | | | | | | INFUSION, | | | | | | | HYDRATION, | | | | | | | EA ADD HOUR | | | | | | | NC | | | | | | | ONDANSETRON | | | | | | | ORAL NC | | | | | | | ORAL | | | | | | | DEXAMETHASON | | | | | | | E, .25 MG | | | | | | | NC | | | | | | | CHEMOTHERAPY | | | | | | | DRUG NC | | | | | | | CISPLATIN 10 | | | | | | | MG | | | | | | | INJECTION | | | | | | | NC ADRENALIN | | | | | | | EPINEPHRINE | | | | | | | INJECT, .1 | | | | | | | MG NC | | | | | | | DIPHENHYDRAM | | | | | | | INE HCL | | | | | | | INJECTIO, 50 | | | | | | | MG NC | | | | | | | METHYLPREDNI | | | | | | | SOLONE | | | | | | | INJECTION, | | | | | | | 125 MG NC | | | | | | | ALBUTEROL | | | | | | | COMP CON, 1 | | | | | | | MG NC | | | | | | | ALBUTEROL | | | | | | | NON-COMP | | | | | | | CON, 1 MG | | | | | | | NC | | | | | | | INJECTION, | | | | | | | FAMOTIDINE, | | | | | | | 20 MG NC | | | | | | | NORMAL | | | | | | | SALINE | | | | | | | SOLUTION | | | | | | | INFUS, 500 | | | | | | | ML NC | | | | | | | NORMAL | | | | | | | SALINE | | | | | | | SOLUTION | | | | | | | INFUS, 250 | | | | | | | ML NC | | | | | | | STERILE | | | | | | | WATER/SALINE | | | | | | | , 10 ML NC | | | | | | | CHEMOTHER, | | | | | | | IV PUSH,EA | | | | | | | ADD DRUG NC | | | | | | | CHEMOTHER, | | | | | | | IV INFUSION, | | | | | | | 1 HR NC | | | | | | | CHEMOTHER, | | | | | | | IV INFUSION, | | | | | | | EA HR NC | | | | | | | CHEMOTHER,NO | | | | | | | N-HORMONE | | | | | | | ANTI-NEOPL, | | | | | | | SUB-Q/IM NC | | | | | | | [...] + + | 08/19/ | Hospital | [facility] | Sterling Thomas, | 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 | | | | INFUSION [address] | [place], [place] | ([facility]); Encounter for | | | | [place], | [address] | antineoplastic | | | | [place] [address] | [phone] | chemotherapy | | | | [phone] | | | +--------+ + + + [...] + + + | Blood Pressure | 176/85 | 08/19/20181118 PDT | + + + + | Pulse | 82 | 08/19/20181118 PDT | + + + + | Temperature | 36.8 C (98.2 F) | 08/19/20181118 PDT | + + + + | Respiratory Rate | 18 | 08/19/20181118 PDT | + + + + | Oxygen Saturation | 94% | 08/19/20181118 PDT | + + + + | [...] | | | | ([facility]), Status post | | | | | | | emergency | | | | | | | tracheotomy for | | | | | | | assistance in | | | | | | | breathing ([facility]), | | | | | | | Chronic obstructive | | | | | | | pulmonary disease, | | | | | | | unspecified COPD | | | | | | | type ([facility]) | | | | | | + [...] + as of this encounter Progress Notes Vicky Pollard RN - 08/19/2018 1250 PDTDischarged to radiation oncology. Returned in a few minutes and felt like she needed to be suctioned. Suction for white/schwartz sputum. Inne r cannula cleaned and reinserted. Patient discharged again to radiation oncology, in satisf actory condition.Kasey Gongora RN - 08/19/2018 1120 PDTArrived ambulatory for infusio n reports that she just went home and slept yesterday felt better that evening when she woke up felt dizzy went to Dr Keane office this am. Drinking lots of fluids.in this encoun ter Plan of Treatment +--------+ [...] [place] | | | | | | [address] | | | | | | [phone] | | | | | | | [...] infusion at 650 mL/hr, | | 8 11:15 | | mL/hr | | | Intravenous, ONCE, [facility] 08/19/18 at | | PDT | | | | | 1100, For 1 dose, 1000 mL OVER | | | | | | | 90 MIN | | | | | | + +---------+ +------+-------+------+ +---+---+ | | | +---+---+ in this encounter"
--- OUTSIDE RECORDS SUMMARY | ~2018-08-25 | XMS | Encounter Summary ---
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 | | | | ONCOLOGY CLINIC 401 | [place], [place] | ([facility]ERLY [facility]) (Primary Dx) | | | | [address] [facility] | [address] | | | | | [place] [address] | | | | | | [phone] | | | +--------+ + + + [...] | | | ([facility]), Encounter for | | | | | [...] | | | ([facility]), Encounter for | | | | | [...] [place] | | | | | | [place], [place] | | | | | | [address] | | | | | | | | +--------+ + + + + | 09/15/ | Appointment | Oncology | Sterling Thomas, | | | 2017 | | | MD [address] | | | | | | [place] | | | | | | [address] | | | | | | [phone] | | | | | | | [...]
--- OUTSIDE RECORDS SUMMARY | ~2018-08-25 | XMS | Encounter Summary ---
Demographics + + + | Address | [address] | | | [place] [address] | + + + | Home Phone [...] + + + | Author | [facility] | | | and Mikeana | + + + | Organization | [facility] | [...] Providers + +------+ + | Care Manager Data Center Name | Role | Phone | + [...] neoplasm of | [address] | [address] [place] | | | | | larynx, | [address] | [place], | | | | | unspecified | [place], | [place] [address] | | | | | (HCC) | [place] | Phone: | | | | | Procedures | [address] | [phone] | | | | | [place] IV | Phone: | Fax: | | | | | INFUSION, | [phone] | [phone] | | | | | HYDRATION, | Fax: | | | | | | 31-60 MIN | [phone] | | | | | | [place] IV | | | | | | | INFUSION, | | | | | | | HYDRATION, | | | | | | | EA ADD HOUR | | | | | | | AR | | | | | | | ONDANSETRON | | | | | | | ORAL AR | | | | | | | ORAL | | | | | | | DEXAMETHASON | | | | | | | E, .25 MG | | | | | | | AR | | | | | | | CHEMOTHERAPY | | | | | | | DRUG AR | | | | | | | CISPLATIN 10 | | | | | | | MG | | | | | | | INJECTION | | | | | | | AR ADRENALIN | | | | | | | EPINEPHRINE | | | | | | | INJECT, .1 | | | | | | | MG AR | | | | | | | DIPHENHYDRAM | | | | | | | INE HCL | | | | | | | INJECTIO, 50 | | | | | | | MG AR | | | | | | | METHYLPREDNI | | | | | | | SOLONE | | | | | | | INJECTION, | | | | | | | 125 MG AR | | | | | | | ALBUTEROL | | | | | | | COMP CON, 1 | | | | | | | MG AR | | | | | | | ALBUTEROL | | | | | | | NON-COMP | | | | | | | CON, 1 MG | | | | | | | AR | | | | | | | INJECTION, | | | | | | | FAMOTIDINE, | | | | | | | 20 MG AR | | | | | | | NORMAL | | | | | | | SALINE | | | | | | | SOLUTION | | | | | | | INFUS, 500 | | | | | | | ML AR | | | | | | | NORMAL | | | | | | | SALINE | | | | | | | SOLUTION | | | | | | | INFUS, 250 | | | | | | | ML AR | | | | | | | STERILE | | | | | | | WATER/SALINE | | | | | | | , 10 ML AR | | | | | | | CHEMOTHER, | | | | | | | IV PUSH,EA | | | | | | | ADD DRUG AR | | | | | | | CHEMOTHER, | | | | | | | IV INFUSION, | | | | | | | 1 HR AR | | | | | | | CHEMOTHER, | | | | | | | IV INFUSION, | | | | | | | EA HR AR | | | | | | | CHEMOTHER,NO | | | | | | | N-HORMONE | | | | | | | ANTI-NEOPL, | | | | | | | SUB-Q/IM AR | | | | | | | [...] + + | 07/13/ | Hospital | [facility] | Sterling Thomas, | Encounter for | | 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 | MED CTR CHEMO | MD [address] | antineoplastic | | | | INFUSION [address] | [place], [place] | chemotherapy ; | | | | [place], | [address] | Squamous cell | | | | [place] [address] | [phone] | carcinoma of larynx | | | | [phone] | | (HCC) | +--------+ + + [...] [place] | | | | | | [id number] | | | | | | | | +--------+ + + + + | 09/15/ | Appointment | Oncology | Sterling Thomas, | | | 2017 | | | MD [address] | | | | | | [place] | | | | | | [address] | | | | | | [phone] | | | | | | | [...]
--- OUTSIDE RECORDS SUMMARY | ~2018-08-25 | XMS | Encounter Summary ---
Demographics + + + | Address | [address] | | | [place] [address] | + + + | Home Phone [...] + + | Author | [facility] | | | and Mikeana | + + + | Organization | [facility] | [...] Team Providers + +------+ + | Care Project Scheduler Name | Role | Phone | + [...] | cancer (HCC) | [address] | [place] | | | | Therapy | Procedures | [address] | [place], [place] | | | | | [place] | [place], | [address] | | | | | | [place] [address] | Phone: | | | | | | Phone: | [phone] | | | | | | [phone] | Fax: | | | | | | Fax: | [phone] | | | | | | [phone] | | + + + + + [...] | | | ONCOLOGY CLINIC [address] | [place], [place] | | | | | [address] | [address] | | | | | [place] [place] [address] | | | | | | [phone] | | | +--------+ + + + [...] [place] | | | | | | [address] | | | | | | [phone] | | | | | | | [...]
--- OUTSIDE RECORDS SUMMARY | ~2018-08-25 | XMS | Encounter Summary ---
Demographics + + + | Address | [address] | | | [place] [address] | + + + | Home Phone | | + + + | Preferred Language | Unknown | + + + | Marital Status | Single | + + + | Tenriism Affiliation | Unknown | + + + | Race | Unknown | + + + | Ethnic Group | Unknown | + + + Author + + + | Author | [facility] | | | and Mikeana | + + + | Organization | [facility] | | | and Mikeana [...] Team Providers + +------+ + | Care Staff Radiation Therapist Name | Role | Phone | + [...] neoplasm of | [address] | [address] [place] | | | | | larynx, | [address] | [place], | | | | | unspecified | [place], | [place] [address] | | | | | (HCC) | [place] | Phone: | | | | | Procedures | [address] | [phone] | | | | | [place] IV | Phone: | Fax: | | | | | INFUSION, | [phone] | [phone] | | | | | HYDRATION, | Fax: | | | | | | 31-60 MIN | [phone] | | | | | | AR [...] + + | 08/03/ | Hospital | [facility] | Sterling Thomas, | 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), Status post | | | | | | | emergency | | | | | | | tracheotomy for | | | | | | | assistance in | | | | | | | breathing ([facility]), | | | | | | | Chronic obstructive | | | | | | | pulmonary disease, | | | | | | | unspecified COPD | | | | | | | type ([facility]) | | | | | | [...] | | | | ([facility]), Encounter for | | | | [...] | 09/15/ | Appointment | Oncology | Setrling Thomas, | | | 2017 | | | MD [address] | | | | | | [place] | | | | | | [address] | | | | | | [phone] | | | | | | | [...]
--- OUTSIDE RECORDS SUMMARY | ~2018-08-25 | XMS | Encounter Summary ---
Demographics + + + | Address | [address] | | | [place] [address] | + + + | Home Phone [...] | [facility] | | | and [place] | + + + | Organization | [facility] | | [...] Team Providers + +------+ + | Care Gum Machine Filler Name | Role | Phone | + [...] | | | | | [place] [address] | | | | | | [phone] | | | +--------+ + + + [...] [place] | | | | | | [address] | | | | | | [phone] | | | | | | | | +--------+ + + + + | 09/15/ | Appointment | Nutrition | Joselin Falcon, | | | 2017 | | | RDN | | +--------+ + + + + as of this encounter Visit Diagnoses Not on filein this encounter"
--- OUTSIDE RECORDS SUMMARY | ~2018-08-25 | XMS | Encounter Summary ---
Demographics + + + | Address | [address] | | | [place] [address] | + + + | Home Phone [...] | Author | [facility] | | | and Mikeana | + + + | Organization | [facility] | | [...] Providers + +------+ + | Care Supervisor Pig Machine Name | Role | Phone | [...] | Squamous | Estefanía Warner | [address] [place] | | | | | cell | MD [address] | [place], | | | | | carcinoma of | [address] | [place] [address] | | | | | larynx | [place], | Phone: | | | | | (HCC) | [place] [address] | [phone] | | | | | Procedures | Phone: | Fax: | | | | | CT Treatment | [phone] | [phone] | | | | | Plan | Fax: | | | | | | Complex CT | [phone] | | | | | | [place] [...] [place] | | | | | ([facility]) | [place] [address] | [place], [place] | | | | | | Phone: | [address] Phone: | | | | | | [phone] | [phone] | | | | | | Fax: | Fax: | | | | | | [phone] | [phone] | + + + + + + [...] | cell | MD [address] | [place] | | | | | carcinoma of | [address] | [place] | | | | | larynx | [place], | [address] | | | | | ([facility]) | [place] [address] | Phone: | | | | | Procedures | Phone: | [phone] | | | | | PET CT Skull | [phone] | Fax: | | | | | Base To Mid | Fax: | [phone] | | | | | Thigh | [phone] | | +--------+--------+ + + + + [...] [address] | | | | | [place] OFFICE | [address] | [address] | | | | | OUTPATIENT | [place], | [place], | | | | | VISIT 25 | [place] [address] | [place] [address] | | | | | MINUTES | Phone: | Phone: | | | | | | [phone] | [phone] | | | | | | Fax: | Fax: | | | | | | [phone] | [phone] | +--------+ + + + + + Encounter Details +--------+ + + + + | Date | Type | Department | Care Team | Description | +--------+ + + + + | 06/25/ | Hospital | [facility] | Estefanía Hairston | 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 Medical Oncology [facility] - | [...] + + | Performing | Address | City[facility] | Phone Number | | Organization [...]
--- OUTSIDE RECORDS SUMMARY | ~2018-08-25 | XMS | Encounter Summary ---
Demographics + + + | Address | [address] | | | [place] [address] | + + + | Home Phone | | + + + | Preferred Language | Unknown | + + + | Marital Status | Single | + + + | Gnosticist Affiliation | Unknown | + + + | Race | Unknown | + + + | Ethnic Group | Unknown | + + + Author + + + | Author | [facility] | | | and [place] | + + + | Organization | [facility] [...] Team Providers + +------+ + | Care Site Director Name | Role | Phone | + [...] | | | ONCOLOGY CLINIC [address] | [place], [place] | | | | | [address] [facility] | [address] | | | | | [place] [address] | | | | | | [phone] | | | +--------+ + + + [...] [place] | | | | | | [address] | | | | | | | | +--------+ + + + + | 09/15/ | Appointment | Oncology | Sterling Thomas, | | | 2017 | | | MD Guero NICOLE | | | | | | [place] | | | | | | [address] | | | | | | [phone] | | | | | | | | +--------+ + + + + | 09/15/ | Appointment | Nutrition | Joselin Falcon, | | | 2018 | | | RDDorothy | | +--------+ + + + + as of this encounter Visit Diagnoses Not on filein this encounter"
--- OUTSIDE RECORDS SUMMARY | ~2018-08-25 | XMS | Encounter Summary ---
Demographics + + + | Address | [address] | | | [place] [address] | + + + | Home Phone [...] Author | [facility] | | | and Mikeana | + + + | Organization | [facility] [...] Team Providers + +------+ + | Care Pie Maker Name | Role | Phone | + [...] neoplasm of | [address] [place] | | | | | larynx, | [address] | [place], | | | | | unspecified | [place], | [place] [address] | | | | | (HCC) | [place] | Phone: | | | | | Procedures | [id number] | [phone] | | | | | [place] IV | Phone: | Fax: | | | | | INFUSION, | [phone] | [phone] | | | | | HYDRATION, | Fax: | | | | | | 31-60 MIN | [phone] | | | | | | SC IV | | | | | | | INFUSION, | | | | | | | HYDRATION, | | | | | | | EA ADD HOUR | | | | | | | SC | | | | | | | ONDANSETRON | | | | | | | ORAL SC | | | | | | | ORAL | | | | | | | DEXAMETHASON | | | | | | | E, .25 MG | | | | | | | SC | | | | | | | CHEMOTHERAPY | | | | | | | DRUG SC | | | | | | | CISPLATIN 10 | | | | | | | MG | | | | | | | INJECTION | | | | | | | SC ADRENALIN | | | | | | | EPINEPHRINE | | | | | | | INJECT, .1 | | | | | | | MG SC | | | | | | | DIPHENHYDRAM | | | | | | | INE HCL | | | | | | | INJECTIO, 50 | | | | | | | MG SC | | | | | | | METHYLPREDNI | | | | | | | SOLONE | | | | | | | INJECTION, | | | | | | | 125 MG SC | | | | | | | ALBUTEROL | | | | | | | COMP CON, 1 | | | | | | | MG SC | | | | | | | ALBUTEROL | | | | | | | NON-COMP | | | | | | | CON, 1 MG | | | | | | | SC | | | | | | | INJECTION, | | | | | | | FAMOTIDINE, | | | | | | | 20 MG SC | | | | | | | NORMAL | | | | | | | SALINE | | | | | | | SOLUTION | | | | | | | INFUS, 500 | | | | | | | ML SC | | | | | | | NORMAL | | | | | | | SALINE | | | | | | | SOLUTION | | | | | | | INFUS, 250 | | | | | | | ML SC | | | | | | | STERILE | | | | | | | WATER/SALINE | | | | | | | , 10 ML SC | | | | | | | CHEMOTHER, | | | | | | | IV PUSH,EA | | | | | | | ADD DRUG SC | | | | | | | CHEMOTHER, | | | | | | | IV INFUSION, | | | | | | | 1 HR SC | | | | | | | CHEMOTHER, | | | | | | | IV INFUSION, | | | | | | | EA HR SC | | | | | | | CHEMOTHER,NO | | | | | | | N-HORMONE | | | | | | | ANTI-NEOPL, | | | | | | | SUB-Q/IM SC | | | | | | | [...] + + | 07/14/ | Hospital | [facility] | Sterling Thomas, | 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 | | | | INFUSION [address] | [place], [place] | ([facility]); Encounter for | | | | [place], | [address] | antineoplastic | | | | [place] [address] | [phone] | chemotherapy | | | | [phone] | | | +--------+ + + + [...] | | | | ([facility]), Encounter for | | | [...] | | | | ([facility]), Encounter for | | | [...] | | | | [place] | | | | | | [id number] | | | | | | | | +--------+ + + + + | 09/15/ | Appointment | Oncology | Sterling Thomas, | | | 2017 | | | MD [address] | | | | | | [place] | | | | | | [address] | | | | | | [phone] | | | | | | | [...]
--- OUTSIDE RECORDS SUMMARY | ~2018-08-25 | XMS | Encounter Summary ---
Demographics + + + | Address | [address] | | | [place] [address] | + + + | Home Phone [...] | [facility] | | | and Mikeana | + + + | Organization | [facility] | | [...] Team Providers + +------+ + | Care Product Director Name | Role | Phone | [...] neoplasm of | [address] [place] | | | | | larynx, | [address] | [place], | | | | | unspecified | [place], | [place] [address] | | | | | (HCC) | [place] | Phone: | | | | | Procedures | [address] | [phone] | | | | | [place] IV | Phone: | Fax: | | | | | INFUSION, | [phone] | [phone] | | | | | HYDRATION, | Fax: | | | | | | 31-60 MIN | [phone] | | | | | | IN [...] + + | 07/16/ | Hospital | [facility] | Sterling Thomas, | 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 | | | | INFUSION [address] | [place], [place] | ([facility]); Encounter for | | | | [place], | [address] | antineoplastic | | | | [place] [address] | [phone] | chemotherapy | | | | [phone] | | | +--------+ + + + [...] | | | | | breathing ([facility]), | | | | | | | Chronic obstructive | | | | | | | pulmonary disease, | | | | | | | unspecified COPD | | | | | | | type ([facility]) | | | | | [...] | | | | | | ([facility]), Encounter for | | | [...] | | | | | | ([facility]), Encounter for | | | [...] | | | | | | ([facility]), Encounter for | | | [...] [address] | | | | | | [place], [place] | | | | | | [address] | | | | | | | | +--------+ + + + + | 09/15/ | Appointment | Oncology | Sterling Thomas, | | | 2017 | | | [address] | | | | | | [place] | | | | | | [address] | | | | | | [phone] | | | | | | | [...] the | | | | | ([facility]) Encounter for | results section. | [...] MCGUIRE | | Serum/Plasma | | | [facility] | | | | | CENTER - | | | | | LABORATORY | + + + + + | eGFR if not | >60Comment: GLOMERULAR | >=60 mL/min/1.73m2 | [facility] | | FRENCH | FILTRATION | | [facility] | | | RATE,ESTIMATED mL/min | | CENTER - | | | /1.48e2Kizm than 60 | | LABORATORY | | [...] + + | Performing | Address | City/State/[facility] | Phone Number | | Organization | | | | + + + + + | [address] | [address] | [place], [place] | [phone] | | [facility] | | [address] | | | - LABORATORY | | | | + + + + + | [address] | [address] | [place] | | | [facility] | | [address] | | | - LABORATORY | | [...]
--- OUTSIDE RECORDS SUMMARY | ~2018-08-25 | XMS | Encounter Summary ---
Demographics + + + | Address | [address] | | | [place] [address] | + + + | Home Phone | | + + + | Preferred Language | Unknown | + + + | Marital Status | Single | + + + | Adventism Affiliation | Unknown | + + + | Race | Unknown | + + + | Ethnic Group | Unknown | + + + Author + + + | Author | [facility] | | | and Mikeana | + + + | Organization | [facility] | | | and [...] Team Providers + +------+ + | Care Computer Aide Name | Role | Phone | + +------+ + | Yeyo Anderson DO | PCP | | + +------+ + Encounter Details +--------+ + + + + | Date | Type | Department | Care Team | Description | +--------+ + + + + | 10// | Hospital | [facility] | Sterling Thomas Guerrero, | 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 | | | | INFUSION [address] | [place], [place] | (HCC) (Primary Dx) | | | | [place], | [address] | | | | | [place] [address] | [phone] | | | | | [phone] | | | +--------+ + + + [...] + as of this encounter Progress Notes Wanda Bryson RN - 07/20/2018 1518 PDTAntinausea infusion complete. Pt dc/d amb in st able condition. Has return appts but also reminded her to call us if she isnt feeling well. in this encounter Plan of Treatment +--------+ [...] [place] | | | | | | [address] | | | | | | [phone] | | | | | | | [...] | + + Administered Medications + +---------+ +-------+-------+------+ | Medication Order | MAR | Action | Dose | Rate | Site | | | Action | Date | | | | + +---------+ +-------+-------+------+ | ondansetron (ZOFRAN) 16 mg in | New Bag | | 16 mg | 232 | | | sodium chloride 0.9% 50 mL IVPB | | 8 14:51 | | mL/hr | | | 16 mg, Intravenous, Administer | | PDT | | | | | over 15 Minutes, ONCE, Tue | | | | | | | 07/20/18 at 1445, For 1 dose | | | | | | + +---------+ +-------+-------+------+ +---+---+ | | | +---+---+ in this encounter"
--- OUTSIDE RECORDS SUMMARY | ~2018-08-25 | XMS | Encounter Summary ---
Demographics + + + | Address | [address] | | | [place] [address] | + + + | Home Phone [...] | Author | [facility] | | | and Mikeana | + + + | Organization | [facility] | [...] Providers + +------+ + | Care Director Of Psychology Name | Role | Phone | + +------+ + | Yeyo Anderson DO | PCP | | + +------+ + Encounter Details +--------+ + + + + | Date | Type | Department | Care Team | Description | +--------+ + + + + | 08/03/ | Hospital | [facility] | Sterling Thomas, | 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 | MD [address] NICOLE | carcinoma of larynx | | | | ONCOLOGY CLINIC [address] | [place], [place] | (HCC) (Primary Dx); | | | | [address] [place] | [address] | 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 Hematology-Oncology Progress Note [facility] Pt. Name/Age/: Crystal Sadler 62 y.o. 1955 CSN: [id number] Date of service: 08/03/2018 Provider: Sterling Thomas [...] plan: Patient tolerated her first cycle of cis-chilkat quite well with no serious aftereffects, but [...] had minimal acute side effects from her cis-chilkat other than nausea, did not lik e [...] 1 tablet by mouth nightly as needed. owttaaqufoVIBWB-vqslowktm-agnettof & magnesium hydroxide-simethicone (MAGIC MOUTHWASH) Take 5 [...] this chart may have been created with [employer] voice recognition software. Occasi onal wrong-word or [...] [place] | | | | | | [address] | | | | | | | | +--------+ + + + + | 09/15/ | Appointment | Oncology | Sterling Thomas, | | | 2017 | | | MD [address] | | | | | | [place] | | | | | | [address] | | | | | | [phone] | | | | | | | [...] + | [address] [facility] | [address] | [place] | [phone] | | [facility] | | [address] | | | - LABORATORY | | | | + + + + + | [facility] | [address] | [place] | | | [facility] | | [address] | | | - LABORATORY | | [...] | | | | | [facility] | | | | | CENTER - | | | | | LABORATORY | + + + + + | Platelet Count | 397 | 140 - 440 K/uL | [facility] | | | | | [facility] | | | | [...] + | [facility] | [address] | [place], [place] | [phone] | | [facility] | | [address] | | | - LABORATORY | | | | + + + + + | [facility] | [address] | [place], [place] | | | [facility] | | [address] | | | - LABORATORY | | [...] 0.62 | 0.60 - 1.30 mg/dL | [facility] | | Serum/Plasma | | | [facility] | | | | | CENTER - | | | | | LABORATORY | + + + + + | eGFR if not | >60Comment: GLOMERULAR | >=60 mL/min/1.73m2 | [facility] | | [place] | FILTRATION | | [facility] | | | RATE,ESTIMATED mL/min | | CENTER - | | | /1.23r5Byok than 60 | | LABORATORY | | [...] 9.1 | 8.3 - 10.5 mg/dL | [facility] | | | | | [facility] | | | | | CENTER - | | | | | LABORATORY | + + + + + | ALBUMIN | 3.1 (L) | 3.2 - 5.0 g/dL | [facility] | | | | | [facility] | | | | | CENTER - | | | | | LABORATORY | + + + + + | Bilirubin Total | 0.5Comment: This is an | 0.1 - 1.5 mg/dL | [facility] | | | appended report. These | | [facility] | | | results [...] + | BUN/CREA | 14.5 | | [facility] | | | | | [facility] | | | | [...] + | [facility] | [address] | [place] | [phone] | | [facility] | | [address] | | | - LABORATORY | | | | + + + + + | [facility] [facility] | [address] | [place], [place] | | | [facility] | | [address] | | | - LABORATORY | | [...]
--- OUTSIDE RECORDS SUMMARY | ~2018-08-25 | XMS | Encounter Summary ---
Demographics + + + | Address | [address] | | | [place] [address] | + + + | Home Phone [...] Author | [facility] | | | and Mikeana | + + + | Organization | [facility] | | | and [...] Team Providers + +------+ + | Care Typer Name | Role | Phone | + [...] neoplasm of | [address] | [address] [place] | | | | | larynx, | [address] | [place], | | | | | unspecified | [place], | [place] [address] | | | | | (HCC) | [place] | Phone: | | | | | Procedures | [address] | [phone] | | | | | [place] IV | Phone: | Fax: | | | | | INFUSION, | [phone] | [phone] | | | | | HYDRATION, | Fax: | | | | | | 31-60 MIN | [phone] | | | | | | [place] [...] + + | 08/03/ | Hospital | [facility] | Sterling Thomas, | 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 | | | | INFUSION [address] | [place] | (HCC) (Primary Dx) | | | | [place], | [address] | | | | | [place] [address] | [phone] | | | | | [phone] | | | +--------+ + + + [...] | | | | | | | ([facility]), Status post | | | | | | | emergency | | | | | | | tracheotomy for | | | | | | | assistance in | | | | | | | breathing ([facility]), | | | | | | | Chronic obstructive | | | | | | | pulmonary disease, | | | | | | | unspecified COPD | | | | | | | type ([facility]) | | | | | | [...] | | | | | | | ([facility]), Encounter for | | | | [...] [place] | | | | | | [address] | | | | | | [phone] | | | | | | | [...]
--- OUTSIDE RECORDS SUMMARY | ~2018-08-25 | XMS | Encounter Summary ---
Demographics + + + | Address | [address] | | | [place] [address] | + + + | Home Phone [...] Author | [facility] | | | and Mikeana | + + + | Organization | [facility] | | | and Mikeana | [...] Team Providers + +------+ + | Care Custom Studio Coordinator Name | Role | Phone | + +------+ + | Yeyo Anderson DO | PCP | | + +------+ + Encounter Details +--------+ + + + + | Date | Type | Department | Care Team | Description | +--------+ + + + + | 08/18/ | Hospital | [facility] | Sterling Thomas, | 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 | MD [address] | carcinoma of larynx | | | | ONCOLOGY CLINIC [address] | [place] | (HCC) (Primary Dx); | | | | [address] [place] | [address] | Elevated LFTs | | | | [place] [address] | [phone] | | | | | [phone] | | | +--------+ + + + [...] different from the original. Hematology-Oncology Progress Note [facility] Pt. Name/Age/: Crystal Sadler 62 y.o. 1955 CSN: [id number] Date of service: 08/18/2018 Provider: Sterling Thomas [...] , either a direct effect of the cis-lumbee (since they were normal prior to initiation [...] 40 mg/m2 Recall that we switched patient's cis-lumbee dosing to 40 mg/m last week due [...] 1 tablet by mouth nightly as needed. rtmvvvrkghBVJBR-edwhjjpyp-hguzaifj & magnesium hydroxide-simethicone (MAGIC MOUTHWASH) Take 5 [...] this chart may have been created with [employer] voice recognition software. Occasi onal wrong-word or [...] [place] | | | | | | [address] | | | | | | [phone] | | | | | | | [...]
--- OUTSIDE RECORDS SUMMARY | ~2018-08-25 | XMS | Encounter Summary ---
Demographics + + + | Address | [address] | | | [place] [address] | + + + | Home Phone | | + + + | Preferred Language | Unknown | + + + | Marital Status | Single | + + + | Congregational Affiliation | Unknown | + + + | Race | Unknown | + + + | Ethnic Group | Unknown | + + + Author + + + | Author | [facility] | | | and Mikeana | + + + | Organization | [facility] | | | and [...] Team Providers + +------+ + | Care Control Integration Engineer Name | Role | Phone | [...] + + | 08/18/ | Hospital | [facility] | Estefanía Hairston | | | 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 | MED CTR NUTRITION | MD Alana [address] | | | | | SERVICES [address] | [place], [place] | | | | | [place], | [address] | | | | | [place] [address] | | | | | | [phone] | Joselin Falcon, | | | | [...] | | | | | ([facility]), Status post | | | | | | | emergency | | | | | | | tracheotomy for | | | | | | | assistance in | | | | | | | breathing ([facility]), | | | | | | | Chronic obstructive | | | | | | | pulmonary disease, | | | | | | | unspecified COPD | | | | | | | type ([facility]) | | | | | | [...] Joselin Falcon, RDN 08/18/2018 13:12 Per Velasquez, MAKING MACHINE CATCHER - 08/18/2018 1256 PDTFormatting of this note may be different from [facility] original. RT called to assess and suction [...] [place] | | | | | | [address] | | | | | | [phone] | | | | | | | | +--------+ + + + + | 09/15/ | Appointment | Nutrition | Joselin Falcon, | | | 2017 | | | RDN | | +--------+ + + + + as of this encounter Visit Diagnoses Not on filein this encounter
--- OUTSIDE RECORDS SUMMARY | ~2018-08-25 | XMS | Encounter Summary ---
Demographics + + + | Address | [address] | | | [place] [address] | + + + | Home Phone [...] | Author | [facility] | | | and [place]ana | + + + | Organization | [facility] | | | and [...] Team Providers + +------+ + | Care Beach Attendant Name | Role | Phone | + [...] + + | 07/22/ | Hospital | [facility] | Estefanía Hairston | 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 | MED CTR RADIATION | MD Alana [address] | carcinoma of larynx | | | | ONCOLOGY CLINIC [address] | [place], [place] | ([facility]) (Primary Dx) | | | | [address] | [address] | | | | | [place] [address] | | | | | | [phone] | | | +--------+ + + + [...] + + + | Blood Pressure | 146/96 | 07/22/20181402 PDT | + + + + | Pulse | 89 | 07/22/20181402 PDT | + + + + | Temperature | 36.5 C (97.7 F) | 07/22/20181402 PDT | + + + + | Respiratory Rate | 16 | 07/22/20181402 PDT | + + + + | Oxygen Saturation | 97% | 07/22/20181402 PDT | + + + + | Inhaled Oxygen | - | - | | Concentration | | | + + + + | Weight | 67 kg (147 lb 11.3 | 07/22/20181402 PDT | | | oz) | | + + + + | Height | - | - | + + + + | Body Mass Index | 27.46 | 07/22/20181402 PDT | + + + + in [...] encounter Progress Notes Estefanía Hairston MD - 07/22/2018 1407 PDTFormatting of this note may be different from ronald lazar. Radiation Oncology Weekly On Treatment Note Diagnosis: ICD-10-CM ICD-9-CM 1. 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 (Patient not taking: Reported on 07/22/2018) 60 via l 0 Cholecalciferol (VITAMIN D3 [...] as needed. (Patient not taking: Reported on 07/20/2018) 30 tablet 0 levoFLOXacin (LEVAQUIN) 500 mg [...] facility-administered medications on file prior to encounter. Pain assessment: Location: 0 Pain Level:0 Pain Quality: 0 Current pain regimen: 0 Wt Readings from Last 3 Encounters: 07/22/18 67 kg (147 lb 11.3 oz) 07/15/18 66.9 kg (147 lb 7.8 oz) 07/13/18 65.1 kg (143 lb 8.3 oz) Vitals: 07/22/18 1403 BP: (!) 146/96 Pulse: 89 Resp: 16 Temp: 36.5 C (97.7 F) TempSrc: Tympanic SpO2: 97% Weight: 67 kg (147 lb 11.3 oz) Physical Exam Constitutional: She appears well-developed and well-nourished. Neurological: She is alert. Skin: No rash noted. No erythema. Psychiatric: She has a normal mood and affect. Lab Results Component Value Date WBC 7.6 07/13/2018 HGB 13.9 07/13/2018 HCT 41.3 07/13/2018 MCV 90.4 07/13/2018 PLT 334 07/13/2018 Lab Results Component Value Date CREA 0.93 07/16/2018 BUN 15 07/13/2018 NA 138 07/13/2018 K 4.0 07/13/2018 CL 104 07/13/2018 CO2 25 07/13/2018 Lab Results Component Value Date ALT 39 07/13/2018 AST 34 07/13/2018 ALKPHOS 65 07/13/2018 BILITOT 0.8 07/13/2018 Physician Assessment: Crystal is much more alert today, she states that she has discontinued use of narcotic pain medications. Does have moderate fatigue. 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 Requests assistance with cleaning her tracheostomy cuff, notes thick secretions and crustin g around the site. Toxicities reviewed in nursing note. Disposition: Continue radiation treatment as planned. Continue concurrent chemotherapy at the direction of medical oncology, every 3 weeks cispla tin. Respiratory therapy to assist with tracheostomy cuff exchange and cleaning today in clinic. Refill albuterol nebulizer. Encouraged her to use humidifier as needed, due to thick secre tions. Estefanía Hairston MD Radiation Oncologist 07/22/18 9891 General Disorders and Administration Site Conditions Fatigue 2 - Grade 2 Respiratory Thoracic and Mediastinal Cough 2 - Grade 2 Dyspnea 2 - Grade 2 Performance Status Karnofsky Performance Score 70% in this encounter Plan of Treatment +--------+ [...] [place] | | | | | | [address] | | | | | | [phone] | | | | | | | | +--------+ + + + + | 09/15/ | Appointment | Nutrition | oJselin Falcon, | | | 2017 | | | RDN | | +--------+ + + + + as of this encounter Visit Diagnoses + + | Diagnosis | + + | 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
--- OUTSIDE RECORDS SUMMARY | ~2018-08-25 | XMS | Encounter Summary ---
Demographics + + + | Address | [address] | | | [place] [address] | + + + | Home Phone [...] + + | Author | [facility] | | | and Mikeana | + + + | Organization | [facility] | | | and Mikeana [...] Team Providers + +------+ + | Care Chicken Handler Name | Role | Phone | + [...] + + | 08/02/ | Emergency | [facility] | Kelley, | Lower respiratory | | 2018 | | [facility] EM[facility] | Manuel Masters MD [address] | infection (Primary | | | | CENTER [address] | [address] [place] | Dx); Tracheostomy | | | | [place], [place] | [place] [address] | care ([facility]); | | | | [address] | [phone] | Hemoptysis, endemic | | | | [phone] | | ([facility]) | +--------+ + + + + Social [...] or | | | | | | ([facility]) | Shortness of Breath. | | | [...] | | | | | | ([facility]), Status post | | | | | | | emergency | | | | | | | tracheotomy for | | | | | | | assistance in | | | | | | | breathing ([facility]), | | | | | | | Chronic obstructive | | | | | | | pulmonary disease, | | | | | | | unspecified COPD | | | | | | | type ([facility]) | | | | | [...] | | | | | | ([facility]), Encounter for | | | [...] [place] | | | | | | [address] | | | | | | [phone] | | | | | | | [...] [place] | | | | | | [id number] | | | [id number] | | | This | | | [...] | | | St. | | | [place] | | | y | | | [...] | | | St. | | | [place] | | | y H. | | [...] | | | St. | | | [place] | | | y H. | | [...] | | | St. | | | [place] | | | y H. | | [...] | | | St. | | | [place] | | | y | | | [...] | | | DO | | | Wrong Address Clerk | | | al | | | [...] MD | | | | | | Wrong Address Clerk | | | al | | | [...] | | | St. | | | [place] | | | y | | | Hospit | | | al | | | Patien | | | t is | | | curren | | | tly | | | establ | | | ished | | | with | | | St | | | [place] | | | y | | | [...] St | | | | | | [place] | | | y | | | [...]
--- OUTSIDE RECORDS SUMMARY | ~2018-08-25 | XMS | Encounter Summary ---
Demographics + + + | Address | [address] | | | [place] [address] | + + + | Home Phone [...] Author | [facility] | | | and [place] | + + + | Organization | [facility] | [...] Team Providers + +------+ + | Care Applique Sewer Name | Role | Phone | + +------+ + | Yeyo Anderson DO | PCP | | + +------+ + Encounter Details +--------+ + + + + | Date | Type | Department | Care Team | Description | +--------+ + + + + | 07/13/ | Hospital | [facility] | Sterling Thmoas, | 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 | MD [address] | carcinoma of larynx | | | | ONCOLOGY CLINIC [address] | [place] | (HCC) (Primary Dx) | | | | [address] | [address] | | | | | [place] [address] | [phone] | | | | | [phone] | | | +--------+ + + + [...] different from the original. Hematology-Oncology Progress Note [facility] Pt. Name/Age/: Crystal Sadler 62 y.o. 1955 CSN: [id number] Date of service: 07/13/2018 Provider: Sterling Thomas [...] this chart may have been created with Asurint voice recognition software. Occasi onal wrong-word or [...] [place] | | | | | | [address] | | | | | | [phone] | | | | | | | [...] | | | ([facility]) | results section. | + +--------+ [...] [facility] | | | | | [facility] | [...] [address] | [place] | [phone] | | [facility] | | [address] | | | - LABORATORY | | | | + + + + + | [facility] | [address] | [place] | | | [facility] | | [address] | | | - LABORATORY | | | | + + + + + CBC with Differential (07/13/2018823) + + + + + | Component | Value | Ref Range | Performed At | + + + + + | WBC | 7.6 | 4.0 - 11.0 K/uL | [facility] | | | | | [facility] | [...] + | [facility] | [address] | [place] | [phone] | | [facility] | | [address] | | | - LABORATORY | | | | + + + + + | [facility] | [address] | [place] | | | [facility] | | [address] | | | - LABORATORY | | | | + + + + + Comprehensive Metabolic Panel (07/13/2018823) + + + + + | Component | Value | Ref Range | Performed At | + + + + + | NA | 138 | 136 - 149 mmol/L | [facility] | | | | | [facility] | [...] ST. | | Serum/Plasma | | | [facility] | | | | | CENTER - | | | | | LABORATORY | + + + + + | eGFR if not | >60Comment: GLOMERULAR | >=60 mL/min/1.73m2 | [facility] | | [facility] | FILTRATION | | [facility] | | | RATE,ESTIMATED mL/min | | CENTER - | | | /1.30w4Zlif than 60 | | LABORATORY | | [...] 9.1 | 8.3 - 10.5 mg/dL | [facility] | | | | | [facility] | | | | | CENTER - | | | | | LABORATORY | + + + + + | ALBUMIN | 3.7 | 3.2 - 5.0 g/dL | [facility] | | | | | [facility] | [...] [facility] | | | | | [facility] | | | | | CENTER - | | | | | LABORATORY | + + + + + | Albumin/Globulin | 1.0 | 0.8 - 2.0 | [facility] | | ratio | | | [facility] | | | | | CENTER - | | | | | LABORATORY | + + + + + | LUZ/NADEEM | 19.5 | | [facility] | | | | | [facility] | [...] [address] | [place] | [phone] | | [facility] | | [address] | | | - LABORATORY | | | | + + + + + | [facility] | [address] | [place] | | | [facility] | | [address] | | | - LABORATORY | | [...]
--- OUTSIDE RECORDS SUMMARY | ~2018-08-25 | XMS | Encounter Summary ---
Demographics + + + | Address | [address] | | | [place] [address] | + + + | Home Phone [...] | Author | [facility] | | | and [place]ana | + + + | Organization | [facility] | | [...] Providers + +------+ + | Care Director Content Marketing Name | Role | Phone | + [...] neoplasm of | [address] | [address] | | | | | larynx, | [address] | [place], | | | | | unspecified | [place], | [place] [address] | | | | | (HCC) | [place] | Phone: | | | | | Procedures | [address] | [phone] | | | | | [place] IV | Phone: | Fax: | | | | | INFUSION, | [phone] | [phone] | | | | | HYDRATION, | Fax: | | | | | | 31-60 MIN | [phone] | | | | | | LA [...] [facility] | Sterling Thomas, | 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 | | | | INFUSION [address] | [place], [place] | ([facility]); Encounter for | | | | [place], | [address] | antineoplastic | | | | [place] [address] | [phone] | chemotherapy | | | | [phone] | | | +--------+ + + + [...] | | | ([facility]), Status post | | [...] [place] | | | | | | [id number] | | | | | | | | +--------+ + + + + | 09/15/ | Appointment | Oncology | Sterling Thomas, | | | 2017 | | | MD [address] | | | | | | [place] | | | | | | [address] | | | | | | [phone] | | | | | | | [...] | | | | | Care, Starting [facility] 07/15/18 at | | | | | [...] | | | | | Minutes, ONCE, [facility] 07/15/18 at | | | | | [...] | mL/hr | | | Intravenous, ONCE, [facility] 07/15/18 at | | PDT | | [...]
--- OUTSIDE RECORDS SUMMARY | ~2018-08-25 | XMS | Encounter Summary ---
Demographics + + + | Address | [address] | | | [place] [address] | + + + | Home Phone [...] + | Author | [facility] | | | and Mikeana | + + + | Organization | [facility] | [...] Team Providers + +------+ + | Care Ski Patroller Name | Role | Phone | + [...] neoplasm of | [address] | | | | | larynx, | [address] | [place], | | | | | unspecified | [place], | [place] [address] | | | | | (HCC) | [place] | Phone: | | | | | Procedures | [address] | [phone] | | | | | [place] IV | Phone: | Fax: | | | | | INFUSION, | [phone] | [phone] | | | | | HYDRATION, | Fax: | | | | | | 31-60 MIN | [phone] | | | | | | [place] IV | | | | | | | INFUSION, | | | | | | | HYDRATION, | | | | | | | EA ADD HOUR | | | | | | | [place] | | | | | | | ONDANSETRON | | | | | | | ORAL [place] | | | | | | | ORAL | | | | | | | DEXAMETHASON | | | | | | | E, .25 MG | | | | | | | [place] | | | | | | | CHEMOTHERAPY | | | | | | | DRUG [place] | | | | | | | CISPLATIN 10 | | | | | | | MG | | | | | | | INJECTION | | | | | | | [place] ADRENALIN | | | | | | | EPINEPHRINE | | | | | | | INJECT, .1 | | | | | | | MG [place] | | | | | | | DIPHENHYDRAM | | | | | | | INE HCL | | | | | | | INJECTIO, 50 | | | | | | | MG [place] | | | | | | | METHYLPREDNI | | | | | | | SOLONE | | | | | | | INJECTION, | | | | | | | 125 MG [place] | | | | | | | ALBUTEROL | | | | | | | COMP CON, 1 | | | | | | | MG [place] | | | | | | | ALBUTEROL | | | | | | | NON-COMP | | | | | | | CON, 1 MG | | | | | | | [place] | | | | | | | INJECTION, | | | | | | | FAMOTIDINE, | | | | | | | 20 MG [place] | | | | | | | NORMAL | | | | | | | SALINE | | | | | | | SOLUTION | | | | | | | INFUS, 500 | | | | | | | ML [place] | | | | | | | NORMAL | | | | | | | SALINE | | | | | | | SOLUTION | | | | | | | INFUS, 250 | | | | | | | ML [place] | | | | | | | STERILE | | | | | | | WATER/SALINE | | | | | | | , 10 ML [place] | | | | | | | CHEMOTHER, | | | | | | | IV PUSH,EA | | | | | | | ADD DRUG [place] | | | | | | | CHEMOTHER, | | | | | | | IV INFUSION, | | | | | | | 1 HR [place] | | | | | | | CHEMOTHER, | | | | | | | IV INFUSION, | | | | | | | EA HR [place] | | | | | | | CHEMOTHER,NO | | | | | | | N-HORMONE | | | | | | | ANTI-NEOPL, | | | | | | | SUB-Q/IM [place] | | | | | | | [...] + + | 08/19/ | Hospital | [facility] | Sterling Thomas, | 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 | | | | INFUSION [address] | [place], [place] | ([facility]); Encounter for | | | | [place], | [address] | antineoplastic | | | | [place] [address] | [phone] | chemotherapy | | | | [phone] | | | +--------+ + + + [...] | | ([facility]), Status post | | | [...] [place] | | | | | | [address] | | | | | | [phone] | | | | | | | [...] | mL/hr | | | Intravenous, ONCE, [facility] 08/19/18 at | | PDT | | | | | 1100, For 1 dose, 1000 mL OVER | | | | | | | 90 MIN | | | | | | + +---------+ +------+-------+------+ +---+---+ | | | +---+---+ in this encounter"
--- OUTSIDE RECORDS SUMMARY | ~2018-08-25 | XMS | Encounter Summary ---
Demographics + + + | Address | [address] | | | [place] [address] | + + + | Home Phone | | + + + | Preferred Language | Unknown | + + + | Marital Status | Single | + + + | Sikhism Affiliation | Unknown | + + + | Race | Unknown | + + + | Ethnic Group | Unknown | + + + Author + + + | Author | [facility] | | | and Mikeana | + + + | Organization | [facility] | | [...] Team Providers + +------+ + | Care Qualifications Examiner Name | Role | Phone | + [...] + + | 07/22/ | Hospital | [facility] | Estefanía Hairston | 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 Estefanía Hairston MD Radiation Oncologist 07/22/18 6863 General Disorders and Administration Site Conditions Fatigue [...] [place] | | | | | | [address] | | | | | | [phone] | | | | | | | [...]
--- OUTSIDE RECORDS SUMMARY | ~2018-08-25 | XMS | Encounter Summary ---
Demographics + + + | Address | [address] | | | [place] [address] | + + + | Home Phone [...] Author | [facility] | | | and Mikeana | + + + | Organization | [facility] | | | and [...] Team Providers + +------+ + | Care Truck Loader And Unloader Name | Role | Phone | + [...] neoplasm of | [address] | | | | | larynx, | [address] | [place], | | | | | unspecified | [place], | [place] [address] | | | | | (HCC) | [place] | Phone: | | | | | Procedures | [address] | [phone] | | | | | [place] IV | Phone: | Fax: | | | | | INFUSION, | [phone] | [phone] | | | | | HYDRATION, | Fax: | | | | | | 31-60 MIN | [phone] | | | | | | [place] IV | | | | | | | INFUSION, | | | | | | | HYDRATION, | | | | | | | EA ADD HOUR | | | | | | | [place] | | | | | | | ONDANSETRON | | | | | | | ORAL [place] | | | | | | | ORAL | | | | | | | DEXAMETHASON | | | | | | | E, .25 MG | | | | | | | [place] | | | | | | | CHEMOTHERAPY | | | | | | | DRUG [place] | | | | | | | CISPLATIN 10 | | | | | | | MG | | | | | | | INJECTION | | | | | | | [place] ADRENALIN | | | | | | | EPINEPHRINE | | | | | | | INJECT, .1 | | | | | | | MG [place] | | | | | | | DIPHENHYDRAM | | | | | | | INE HCL | | | | | | | INJECTIO, 50 | | | | | | | MG [place] | | | | | | | METHYLPREDNI | | | | | | | SOLONE | | | | | | | INJECTION, | | | | | | | 125 MG [place] | | | | | | | ALBUTEROL | | | | | | | COMP CON, 1 | | | | | | | MG [place] | | | | | | | ALBUTEROL | | | | | | | NON-COMP | | | | | | | CON, 1 MG | | | | | | | [place] | | | | | | | INJECTION, | | | | | | | FAMOTIDINE, | | | | | | | 20 MG [place] | | | | | | | NORMAL | | | | | | | SALINE | | | | | | | SOLUTION | | | | | | | INFUS, 500 | | | | | | | ML [place] | | | | | | | NORMAL | | | | | | | SALINE | | | | | | | SOLUTION | | | | | | | INFUS, 250 | | | | | | | ML [place] | | | | | | | STERILE | | | | | | | WATER/SALINE | | | | | | | , 10 ML [place] | | | | | | | CHEMOTHER, | | | | | | | IV PUSH,EA | | | | | | | ADD DRUG [place] | | | | | | | CHEMOTHER, | | | | | | | IV INFUSION, | | | | | | | 1 HR [place] | | | | | | | CHEMOTHER, | | | | | | | IV INFUSION, | | | | | | | EA HR [place] | | | | | | | CHEMOTHER,NO | | | | | | | N-HORMONE | | | | | | | ANTI-NEOPL, | | | | | | | SUB-Q/IM [place] | | | | | | | [...] + + | 08/18/ | Hospital | 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 1420 Reports [...] [place] | | | | | | [place], [place] | | | | | | [address] | | | | | | | | +--------+ + + + + | 09/15/ | Appointment | Oncology | Sterling Thomas, | | | 2017 | | | [address] | | | | | | [place] | | | | | | [address] | | | | | | [phone] | | | | | | | [...] | | | | ([facility]) Encounter for | results section. | | | | | antineoplastic | | | | | | chemotherapy | | + +--------+ + + + | MAGNESIUM | STAT | 08/18/2018 | Squamous cell | Results for this | | | | 0849 PDT | carcinoma of larynx | procedure are in the | | | | | ([facility]) Encounter for | results section. | [...] | | | | ([facility]) Encounter for | results section. | [...] + | [facility] | [address] | [place] | [phone] | | [facility] | | [address] | | | - LABORATORY | | | | + + + + + | [facility] | [address] | [place] | | | [facility] | | [address] | | | - LABORATORY | | [...] + | [facility] | [address] | [place], [place] | [phone] | | [facility] | | [address] | | | - LABORATORY | | | | + + + + + | [facility] | [address] | [place], [place] | | | [facility] | | [address] | | | - LABORATORY | | [...] [facility] | | | | | [facility] [...] [address] | [place] | [phone] | | [facility] | | [address] | | | - LABORATORY | | | | + + + + + | [facility] | [address] | [place] | | | [facility] | | [address] | | | - LABORATORY | | [...] 11 | 7 - 18 mg/dL | [facility] | | | | | [facility] | | | | | CENTER - | | | | | LABORATORY | + + + + + | Creatinine, | 0.61 | 0.60 - 1.30 mg/dL | [facility] | | Serum/Plasma | | | [facility] | | | | | CENTER - | | | | | LABORATORY | + + + + + | eGFR if not | >60Comment: GLOMERULAR | >=60 mL/min/1.73m2 | [facility] | | [place] | FILTRATION | | [facility] | | | RATE,ESTIMATED mL/min | | CENTER - | | | /1.80w1Eqaq than 60 | | LABORATORY | | [...] appended report. These | | [facility] | | | results have been [...] | | an appended report. | | [facility] | | | These results [...] | | appended report. These | | [facility] | | | results have been | | CENTER - | | | appended to a previously | | LABORATORY | | | preliminary verified | | | | | report. | | | + + + + + | GLOBULIN | 3.9 (H) | 2.1 - 3.8 g/dL | [facility] | | | | | [facility] | | | | | CENTER - | | | | | LABORATORY | + + + + + | Albumin/Globulin | 0.8 | 0.8 - 2.0 | [facility] | | ratio | | | [facility] [...] Performing | Address | City/[facility] | Phone Number | | Organization | | | | + + + + + | [facility] | [address] | [place] | [phone] | | [facility] | | [address] | | | - LABORATORY | | | | + + + + + | [facility] | [address] | [place] | | | [facility] | | [address] | | | - LABORATORY | | [...]
--- OUTSIDE RECORDS SUMMARY | ~2018-08-25 | XMS | Encounter Summary ---
Demographics + + + | Address | [address] | | | [place] [address] | + + + | Home Phone | | + + + | Preferred Language | Unknown | + + + | Marital Status | Single | + + + | Yazdanism Affiliation | Unknown | + + + | Race | Unknown | + + + | Ethnic Group | Unknown | + + + Author + + + | Author | [facility] | | | and Mikeana | + + + | Organization | [facility] | | | and [...] Team Providers + +------+ + | Care Emergency Management Coordinator Name | Role | Phone | [...] | | | | | | [place] [address] | | | | | | [phone] | | | +--------+ + + + [...] tr eatments and only being home in [place] on the weekends. Dr. Hairston notified of symptoms that patient has been experiencing, she advises patient to be evaluated at the urgent care [facility]. Patient informed, verbalizes agreement and understanding, provided a map and instructi ons on how to get to the urgent care. Patient has no further questions at this time. Ignacio notified of difficulties that patient has been having with dizziness, she looking into accomodations for more appropriate placement at the [facility] as patient is currently o n the [...] [place] | | | | | | [id number] | | | | | | | | +--------+ + + + + | 09/15/ | Appointment | Oncology | Sterling Thomas, | | | 2017 | | | MD [address]LE | | | | | | [place] | | | | | | [address] | | | | | | [phone] | | | | | | | | +--------+ + + + + | 09/15/ | Appointment | Nutrition | Joselin Falcon, | | | 2018 | | | RDN | | +--------+ + + + + as of this encounter Visit Diagnoses Not on filein this encounter
--- OUTSIDE RECORDS SUMMARY | ~2018-08-25 | XMS | Encounter Summary ---
Demographics + + + | Address | [address] | | | [place] [address] | + + + | Home Phone [...] | Author | [facility] | | | and Mikeana | + + + | Organization | [facility] | | | and Mikeana | + + + | Address | Unknown | + + + | Phone | Unavailable | + + + Support + + +---------+ + | Name | Relationship | Address | Phone | + + +---------+ + | eSbastian Vivas | ECON | Unknown | | + + +---------+ + | Rafia Stephens | ECON | Unknown | | + + +---------+ + Care Team Providers + +------+ + | Care Plate Maker Zinc Name | Role | Phone | + +------+ + | Yeyo Anderson DO | PCP | | + +------+ + Encounter Details +--------+ + + + + | Date | Type | Department | Care Team | Description | +--------+ + + + + | 08/10/ | Hospital | [facility] | Sterling Thomas, | 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 Hematology-Oncology Progress Note [facility] Pt. Name/Age/: Crystal Sadler 62 y.o. 1955 CSN: [id number] Date of service: 08/10/2018 Provider: Sterling Thomas [...] exposures. 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 azjvigvsvsVNEXT-gabpmkcmc-syctaapf & magnesium hydroxide-simethicone (MAGIC MOUTHWASH) Take 5 [...] this chart may have been created with MYOMO voice recognition software. Occasi onal wrong-word or [...] | | | | [place] | | | | | | [address] | | | | | | | | +--------+ + + + + | 09/15/ | Appointment | Oncology | Sterling Thomas, | | | 2017 | | | MD Guero A[address] | | | | | | [place] | | | | | | [address] | | | | | | [phone] | | | | | | | [...] ([facility]) | results section. | + +--------+ + + + | CBC WITH | STAT | 08/10/2018 | Squamous cell | Results for this | | DIFFERENTIAL | | 0813 PDT | carcinoma of larynx | procedure are in the | | | | | ([facility]) | results section. | + +--------+ + + + | MAGNESIUM | STAT | 08/10/2018 | Squamous cell | Results for this | | | | 0813 PDT | carcinoma of larynx | procedure are in the | | | | | ([facility]) | results section. | + +--------+ + + + | COMPREHENSIVE | STAT | 08/10/2018 | Squamous cell | Results for this | | METABOLIC PANEL | | 0813 PDT | carcinoma of larynx | procedure are in the | | | | | ([facility]) | results section. | + +--------+ + [...] + | [facility] | [address] | [place] | [phone] | | [facility] | | [address] | | | - LABORATORY | | | | + + + + + | [facility] | [address] | [place] | | | [facility] | | [address] | | | - LABORATORY | | | | + + + + + Magnesium (08/10/2018812) + +-------+ + + | Component | Value | Ref Range | Performed At | + +-------+ + + | Magnesium | 1.8 | 1.8 - 2.5 mg/dL | [facility] | | | | | [place] [...] [address] | [place] | [phone] | | [facility] | | [address] | | | - LABORATORY | | | | + + + + + | [facility] | [address] | [place] | | | [facility] | | [address] | | | - LABORATORY | | | | + + + + + CBC with Differential (08/10/2018812) + + + + + | Component | Value | Ref Range | Performed At | + + + + + | WBC | 5.4 | 4.0 - 11.0 K/uL | [facility] | | | | | [place] [...] + | [facility] | [address] | [place] | [phone] | | [facility] | | [address] | | | - LABORATORY | | | | + + + + + | [facility] | [address] | [place] | | | [facility] | | [address] | | | - LABORATORY | | | | + + + + + Comprehensive Metabolic Panel (08/10/2018812) + + + + + | Component | Value | Ref Range | Performed At | + + + + + | NA | 132 (L) | 136 - 149 mmol/L | [facility] | | | [...] [facility] | | | | | [facility] | | | | | CENTER - | | | | | LABORATORY | + + + + + | BUN | 10 | 7 - 18 mg/dL | [facility] | | | | | [facility] | | | | | CENTER [...] >=60 mL/min/1.73m2 | [facility] | | [place] | FILTRATION | | [facility] | | | RATE,ESTIMATED mL/min | | CENTER - | | | /1.92r6Fyna than 60 | | LABORATORY | | [...] [facility] | | | | | [facility] | | | | | CENTER - | | | | | LABORATORY | + + + + + | ALBUMIN | 3.2 | 3.2 - 5.0 g/dL | [facility] | | | | | [facility] | | | | | CENTER - | | | | | LABORATORY | + + + + + | Bilirubin Total | 0.4Comment: This is an | 0.1 - 1.5 mg/dL | [facility] | | | appended report. These | | [facility] | | | results have been | | CENTER - | | | appended to a previously | | LABORATORY | | | preliminary verified | | | | | report. | | | + + + + + | Total protein | 8.1 (H) | 6.0 - 7.8 g/dL | [facility] | | | | | [facility] | | | | | CENTER [...] [facility] | | | | | [facility] | | | | | CENTER [...] + | BUN/CREA | 17.9 | | [facility] | | | [...] [address] | [place] | [phone] | | [facility] | | [address] | | | - LABORATORY | | | | + + + + + | [facility] | [address] | [place], [place] | | | [facility] | | [address] | | | - LABORATORY | | [...]
--- OUTSIDE RECORDS SUMMARY | ~2018-08-25 | XMS | Encounter Summary ---
Demographics + + + | Address | [address] | | | [place] [address] | + + + | Home Phone [...] | Author | [facility] | | | and [place]ana | + + + | Organization | [facility] | | | and [...] Team Providers + +------+ + | Care Carpet Finishing Supervisor Name | Role | Phone | + +------+ + | Yeyo Anderson DO | PCP | | + +------+ + Encounter Details +--------+ + + + + | Date | Type | Department | Care Team | Description | +--------+ + + + + | 07/24/ | [facility] | [facility] | Estefanía Hairston | | | 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 | MED CTR RADIATION | [place], [address] | | | | | ONCOLOGY [address] [place], [place] | | | | | [place], | [address] | | | | | [place] [address] | | | | | | [phone] | | | +--------+ + + + [...] | | | | | | ([facility]), Status post | | | | | | | emergency | | | | | | | tracheotomy for | | | | | | | assistance in | | | | | | | breathing ([facility]), | | | | | | | Chronic obstructive | | | | | | | pulmonary disease, | | | | | | | unspecified COPD | | | | | | | type ([facility]) | | | | | [...] | | | | | | ([facility]), Encounter for | | | [...] [address] | | | | | | [place], [place] | | | | | | [address] | | | | | | | | +--------+ + + + + | 09/15/ | Appointment | Oncology | Sterling Thomas, | | | 2017 | | | MD [address] | | | | | | [place] | | | | | | [address] | | | | | | [phone] | | | | | | | | +--------+ + + + + | 09/15/ | Appointment | Nutrition | Joselin Falcon, | | | 2017 | | | RDN | | +--------+ + + + + as of this encounter Visit Diagnoses Not on filein this encounter"
--- OUTSIDE RECORDS SUMMARY | ~2018-08-25 | XMS | Encounter Summary ---
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 dmopizcgszPFYOD-lpgzaqbff-vvvakfia & magnesium hydroxide-simethicone (MAGIC MOUTHWASH) Take 5 [...] | | | | [place] | | | | | | [id number] | | | | | | | | +--------+ + + + + | 09/15/ | Appointment | Oncology | Sterling Thomas, | | | 2017 | | | MD [address] | | | | | | [place] | | | | | | [address] | | | | | | [phone] | | | | | | | [...]
--- OUTSIDE RECORDS SUMMARY | ~2018-08-25 | XMS | Encounter Summary ---
Demographics + + + | Address | [address] | | | [place] [address] | + + + | Home Phone [...] + + + | Author | [facility] | | | and [place]ana | + + + | Organization | [facility] [...] Team Providers + +------+ + | Care Nurse Charge Rn Name | Role | Phone | + +------+ + | Yeyo Anderson DO | PCP | | + +------+ + Encounter Details +--------+ + + + + | Date | Type | Department | Care Team | Description | +--------+ + + + + | 06/10/ | [facility] | [facility] | Lida Garcia | | | 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 | MED CTR ACUTE | D, PT [address] | | | | | PHYSICAL THERAPY | [place] | | | | | [address] | [address] | | | | | [place] [address] | | | | | | [phone] | | | +--------+ + + + [...] | | | | | | [place], [place] | | | | | | [address] | | | | | | | | +--------+ + + + + | 09/15/ | Appointment | Oncology | Sterling Thomas, | | | 2017 | | | [address] | | | | | | [place] | | | | | | [address] | | | | | | [phone] | | | | | | | | +--------+ + + + + | 09/15/ | Appointment | Nutrition | Joselin Falcon, | | | 2017 | | | RDN | | +--------+ + + + + as of this encounter Visit Diagnoses Not on filein this encounter"
--- OUTSIDE RECORDS SUMMARY | ~2018-08-25 | XMS | Encounter Summary ---
Demographics + + + | Address | [address] | | | [place] [address] | + + + | Home Phone [...] | Author | [facility] | | | and [place] | + + + | Organization | [facility] | | | and [...] Team Providers + +------+ + | Care Stoneworking Belt Sander Name | Role | Phone | + [...] + + | 08/11/ | Hospital | [facility] | Sterling Thomas, | | | 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 | MED CTR NUTRITION | MD [address] | | | | | SERVICES [address] | [place], [place] | | | | | [place], | [address] | | | | | [place] [address] | [phone] | | | | | [phone] | | | | | | | [...] | | | | | | [place] [facility] [place] | | | | | | [id number] | | | | | | | | +--------+ + + + + | 09/15/ | Appointment | Oncology | Sterling Thomas, | | | 2017 | | | [address] | | | | | | [place] | | | | | | [address] | | | | | | [phone] | | | | | | | | +--------+ + + + + | 09/15/ | Appointment | Nutrition | Joselin Falcon, | | | 2017 | | | RDN | | +--------+ + + + + as of this encounter Visit Diagnoses Not on filein this encounter
--- OUTSIDE RECORDS SUMMARY | ~2018-08-25 | XMS | Encounter Summary ---
Demographics + + + | Address | [address] | | | [place] [address] | + + + | Home Phone [...] Author | [facility] | | | and [place] | + + + | Organization | [facility] | | | and [...] Team Providers + +------+ + | Care Citrus Picker Name | Role | Phone | + +------+ + | Yeyo Anderson DO | PCP | | + +------+ + Encounter Details +--------+ + + + + | Date | Type | Department | Care Team | Description | +--------+ + + + + | 07/20/ | Hospital | 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 | J, 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 | | | | ONCOLOGY CLINIC [address] | [address] [place] | (HCC) (Primary Dx); | | | | [address] [place] | [place] [address] | Encounter for | | | | [place] [address] | [phone] | antineoplastic | | | | [phone] | | chemotherapy | +--------+ + + [...] | | | | | | ([facility]), Status post | | | | | | | emergency | | | | | | | tracheotomy for | | | | | | | assistance in | | | | | | | breathing ([facility]), | | | | | | | Chronic obstructive | | | | | | | pulmonary disease, | | | | | | | unspecified COPD | | | | | | | type ([facility]) | | | | | [...] | | | | | | ([facility]), Encounter for | | | [...] original. Clinical Oncology Pharmacy Services Progress Note [facility] Pt. Name/Age/: Crystal Sadler 62 y.o. 1955 CSN: [id number] Date of service: 07/20/2018 Provider: Goyo Moe, SandroD Identifying Statement: Crystal Sadler is a 62 y.o. female from [address] [place] [address], laryngeal cancer. 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 3. Follow up on Thursday for jeferson check. Subjective: The patient chart and medications were reviewed in detail and the patient was seen and exam ined. Crystal Sadler is a 62 y.o. female with head and neck cancer, here for treatment. Crystal presented to our [facility]NA[facility], complaining of ongoing nausea. She has felt so si ck that she is considering "giving up," also expressing idea's of suicide. Important to note her best friend's daughter committed suicide yesterday. Our renal social worker and nursing staff are working [...] above, it appears her brother did not quill picking machine operator her supportive meds as originally planned. She is now staying in the [facility] and will nee d her medications [...] [place] | | | | | | [address] | | | | | | | | +--------+ + + + + | 09/15/ | Appointment | Oncology | Sterling Thomas, | | | 2017 | | | [address] | | | | | | [place] | | | | | | [address] | | | | | | [phone] | | | | | | | [...]
--- OUTSIDE RECORDS SUMMARY | ~2018-08-25 | XMS | Encounter Summary ---
Demographics + + + | Address | [address] | | | [place] [address] | + + + | Home Phone [...] | Author | [facility] | | | and [place] | + + + | Organization | [facility] | | | and [place] [...] Team Providers + +------+ + | Care Buoy Tender Name | Role | Phone | + +------+ + | Yeyo Anderson DO | PCP | | + +------+ + Encounter Details +--------+ + + + + | Date | Type | Department | Care Team | Description | +--------+ + + + + | 10// | Hospital | [facility] | Sterling Thomas Guerrero, | 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, | [address] | | | | | [place] [address] | [phone] | | | | | [phone] | | | +--------+ + + + [...] [place] | | | | | | [address] | | | | | | [phone] | | | | | | | [...]
--- OUTSIDE RECORDS SUMMARY | ~2018-08-25 | XMS | Encounter Summary ---
Demographics + + + | Address | [address] | | | [place] [address] | + + + | Home Phone [...] + + + | Author | [facility] | | | and [place] | + + + | Organization | [facility] | | [...] Providers + +------+ + | Care Sales Representative Sales Manager Name | Role | Phone [...] [place] | | | | | [address] [place] | [address] | | | | | [place] [address] | | | | | | [phone] | | | +--------+ + + + [...] [place] | | | | | | [address] | | | | | | | | +--------+ + + + + | 09/15/ | Appointment | Oncology | Sterling Thomas, | | | 2017 | | | MD [address] | | | | | | [place] | | | | | | [address] | | | | | | [phone] | | | | | | | | +--------+ + + + + | 09/15/ | Appointment | Nutrition | Joselin Falcon, | | | 2018 | | | RDN | | +--------+ + + + + as of this encounter Visit Diagnoses Not on filein this encounter"
--- OUTSIDE RECORDS SUMMARY | 2018-08-25 19:50 | XMS ---
PreManage Notification: RAUDEL VASQUEZ Security Menagerie Caretaker Events No recent Security Events currently on file CRITERIA MET - 6 ED Visits in 6 Months - [facility] - Has Care Guidelines - [facility] - 2 Visits in 30 Days CARE PROVIDERS SHELLIE MÁRQUEZ DO Internal Medicine 06/18/2018-Current PHONE: Unknown FARHAN ACEVEDO Internal Medicine 07/12/2018-Current Narrative Science PHONE: [phone] Guidelines Source: [facility] Guidelines Date: 06/17/2018 Care Coordination: PATIENT IS UNDER SERVICES AT [facility].\T\nbsp; IF PATIENT IS SEEN IN THE ED, PLEASE NOTIFY THEM AT [phone].\T\nbsp; IF AFTER HOURS OR ON WEEKENDS PLEASE CALL SW[employer] AT [phone] AND HAVE ON-CALL RN NOTIFIED. Care History Medical/Surgical 06/18/2018 [facility] - Patient is currently established with [facility]. If patient is seen in the ED during business hours. Please contact CHWs at [facility]. Care Recommendation: This patient [...] providing care. E.D. VISIT COUNT (12 MO.) 1 [facility]. Mary Alexia 5 [facility] Jimenez TOTAL 6 NOTE: Visits indicate total known visits. ED/UCC VISIT TRACKING (12 MO.) 08/25/2018 19:45 [facility] [facility] TYPE: Emergency COMPLAINT: - [facility] DIAGNOSES: - wound care - Encounter for attention to tracheostomy - Unspecified acute lower respiratory infection - Blood-streaked Sputum - Fever (9 Weeks To 74 Years) - Paragonimiasis 07/16/2018 23:31 [facility] Mcallister TYPE: Emergency COMPLAINT: - DIFFICUTLY BREATHING DIAGNOSES: - Nicotine dependence, unspecified, uncomplicated - Type 2 diabetes mellitus without complications - Shortness of breath - Malfunction of tracheostomy stoma - Allergy status to narcotic agent status - Other vermin exterminator (current) drug therapy 07/10/2018 08:12 [facility] Mcallister TYPE: Emergency COMPLAINT: - SORE THROAT DIAGNOSES: - Other vermin exterminator (current) drug therapy - Allergy status to narcotic agent status - Type 2 diabetes mellitus without complications - Malignant neoplasm of larynx, unspecified - Bronchitis, not specified as acute or chronic - Nicotine dependence, unspecified, uncomplicated - Other chest pain 06/16/2018 21:54 [facility] Mcallister TYPE: Emergency COMPLAINT: - DIFFICULTY BREATHING 03/22/2018 05:45 [facility] Mcallister TYPE: Emergency COMPLAINT: - COUGH,HAS NO VOICE DIAGNOSES: - Cough - Allergy status to narcotic agent status - Dysphagia, unspecified - detention (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 drugs - Urinary tract infection, site not specified - Nicotine dependence, unspecified, uncomplicated - WEB PRODUCTION MANAGER (CURRENT) USE OF ORAL HYPOGLYCEMIC DRUGS INPATIENT VISIT TRACKING (12 MO.) 06/01/2018 14:33 [facility] Alexia MCCABE TYPE: Surgical Services DIAGNOSES: - Encounter for attention to tracheostomy - New trach - Nicotine dependence, unspecified, uncomplicated - Pain in right leg - Pain in right foot - Pain in left foot - Chronic obstructive pulmonary disease, unspecified - Malignant neoplasm of larynx, unspecified - Tracheostomy status [email or web address]
[2018-08-25] MEDS ORDERED: ONDANSETRON HCL8 MG PO (20:03)
--- OUTSIDE RECORDS SUMMARY | 2018-08-25 20:39 | XMS | Clinical Summary ---
Demographics + + + | Address | [address] | | | [place] [address] | + + + | Home Phone | | + + + | Preferred Language | Unknown | + + + | Marital Status | Single | + + + | Sabianism Affiliation | Unknown | + + + | Race | Unknown | + + + | Ethnic Group | Unknown | + + + Author + + + | Author | [facility] | | | and [place] | + + + | Organization | [facility] | | | and [place] | + + + | Address | Unknown | + + + | Phone | Unavailable | + + + Support + + +---------+ + | Name | Relationship | Address | Phone | + + +---------+ + | Sebastian Vivas | ECON | Unknown | | + + +---------+ + | Rafia Stephens | ECON | Unknown | | + + +---------+ + Care Team Providers + +------+ + | Care Assembler Fishing Floats Name | Role | Phone | + +------+ + | Yeyo Anderson DO | PP | | + +------+ + Allergies + + + + + + | Active Allergy | Reactions | Severity | Noted | Comments | | | | | Date | | + + + + + + | Codeine | Shortness Of Breath | High | 06/24/20 | | | | | | 18 | | + + + + + + | Penicillins | Other (See Comments) | | 06/25/20 | unknown | | | | | 18 | | + + + + + + Current Medications + + + +---------+------+------+-------+ | Prescription | Sig. | Disp. | Refills | Star | End | Statu | | | | | | t | Date | s | | | | | | Date | | | + + + +---------+------+------+-------+ | | Take 1-2 tablets by | 30 | 0 | 08/1 | | Activ | | HYDROcodone-acetamin | mouth every 4 hours | tablet | | /20 | | e | | ophen (NORCO) 5-325 | as needed. | | | 18 | | | | mg per tablet | | | | | | | + + + +---------+------+------+-------+ | Misc. Devices | 1 Application by | 1 each | 0 | 08/2 | | Activ | | (COMMODE BEDSIDE) | Does not apply route | | | 320 | | e | | MISCIndications: | as needed. | | | 18 | | | | Laryngeal carcinoma | | | | | | | | ([facility]), Status post | | | | | | | | emergency | | | | | | | | tracheotomy for | | | | | | | | assistance in | | | | | | | | breathing ([facility]), | | | | | | | | Chronic obstructive | | | | | | | | pulmonary disease, | | | | | | | | unspecified COPD | | | | | | | | type ([facility]) | | | | | | | + + + +---------+------+------+-------+ | Humidifiers (COOL | 1 applicator by Does | 1 each | 0 | 08/2 | | Activ | | MIST HUMIDIFIER 1 | not apply route as | | | 320 | | e | | GALLON) MISC | needed. | | | 18 | | | + + + +---------+------+------+-------+ | diazePAM (VALIUM) | Take 1 tablet by | | | 08/2 | | Activ | | 5 mg tablet | mouth nightly as | | | 8/20 | | e | | | needed. | | | 18 | | | + + + +---------+------+------+-------+ | Cholecalciferol | Take by mouth. | | | | | Activ | | (VITAMIN D3 PO) | | | | | | e | + + + +---------+------+------+-------+ | OLANZapine | Take 1 tablet by | 30 | 0 | 10/0 | | Activ | | (ZYPREXA) 5 mg | mouth nightly. | tablet | | 2/20 | | e | | tabletIndications: | starting Day 1 of | | | 18 | | | | Squamous cell | chemotherapy. | | | | | | | carcinoma of larynx | | | | | | | | (HCC), Encounter for | | | | | | | | antineoplastic | | | | | | | | chemotherapy | | | | | | | + + + +---------+------+------+-------+ | | Take 5 mLs by mouth | 600 mL | 3 | 10/0 | | Activ | | diphenhydrAMINE-lido | every 4 hours as | | | 5/20 | | e | | shira-aluminum & | needed for Pain (Can | | | 18 | | | | magnesium | swish and swallow, | | | | | | | hydroxide-simethicon | or swish and spit). | | | | | | | e (MAGIC | (RECIPE = 1:1:1 | | | | | | | MOUTHWASH)Indication | mixture of Maalox, | | | | | | | s: Mucositis due to | diphenhydrAMINE, | | | | | | | radiation therapy | viscous lidocaine) | | | | | | + + + +---------+------+------+-------+ | albuterol 2.5 mg/3 | Take 3 mLs by | 60 vial | 0 | 10/1 | | Activ | | mL nebulizer | nebulization every 4 | | | 0/20 | | e | | solutionIndications: | hours as needed for | | | 18 | | | | Laryngeal cancer | Wheezing or | | | | | | | (HCC) | Shortness of Breath. | | | | | | + + + +---------+------+------+-------+ | ondansetron | Take 1 tablet by | 30 | 1 | 10/1 | | Activ | | (ZOFRAN) 8 MG tablet | mouth every 8 hours | tablet | | 6/20 | | e | | | as needed for | | | 18 | | | | | Nausea. May take | | | | | | | | twice daily for two | | | | | | | | days after chemo; or | | | | | | | | one tab every eight | | | | | | | | hours as needed for | | | | | | | | nausea | | | | | | + + + +---------+------+------+-------+ | levoFLOXacin | Take 1 tablet by | | | /2 | 07/19 | Disco | | (LEVAQUIN) 500 mg | mouth Daily. | | | /20 | 6/20 | ntinu | | tablet | | | | 18 | 18 | ed | + + + +---------+------+------+-------+ | LORazepam (ATIVAN) | Take 1 tablet by | 20 | 5 | /2 | /2 | Disco | | 1 mg | mouth every 6 hours | tablet | | /20 | 3/20 | ntinu | | tabletIndications: | as needed | | | 18 | 18 | ed | | Squamous cell | (Nausea/Vomiting). | | | | | | | carcinoma of larynx | | | | | | | | (HCC), Encounter for | | | | | | | | antineoplastic | | | | | | | | chemotherapy | | | | | | | + + + +---------+------+------+-------+ | ondansetron | Take 1 tablet by | 30 | 0 | 10/0 | 10/2 | Disco | | (ZOFRAN ODT) 8 mg | mouth every 8 hours | tablet | | 2/20 | 3/20 | ntinu | | disintegrating | as needed for | | | 18 | 18 | ed | | tablet | Nausea. | | | | | | + + + +---------+------+------+-------+ | albuterol 2.5 mg/3 | Take 3 mLs by | 60 vial | 0 | 10/0 | 10/1 | Disco | | mL nebulizer | nebulization every 4 | | | 4/20 | 0/20 | ntinu | | solution | hours as needed for | | | 18 | 18 | ed | | | Wheezing or | | | | | | | | Shortness of Breath. | | | | | | + + + +---------+------+------+-------+ | doxycycline | Take 1 tablet by | 20 | 0 | 10/1 | 10/2 | Disco | | (VIBRAMYCIN) 100 mg | mouth 2 times daily | tablet | | 5/20 | 3/20 | ntinu | | tablet | for 10 days. | | | 18 | 18 | ed | + + + +---------+------+------+-------+ Active Problems + + + | Problem | Noted Date | + + + | Tracheostomy, acute management (HCC) | 06/09/2018 | + + + | Squamous cell carcinoma of larynx (HCC) | 06/08/2018 | + + + | Smoker | 06/08/2018 | + + + | Bilateral foot pain | 06/19/2016 | + + + | Right leg pain | 06/19/2016 | + + + | Encounter for antineoplastic chemotherapy | | + + + Encounters +--------+ + + + + | Date | Type | Specialty | Care Team | Description | +--------+ + + + + | 08/25/ | Hospital | | Sterling Thomas, | 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 | | | | | | (HCC) (Primary Dx); | | | | | | Chemotherapy-induced | | | | | | thrombocytopenia; | | | | | | Elevated LFTs | +--------+ + + + + | 08/25/ | Hospital | | Sterling Thomas, | 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 | | | | | | (HCC) (Primary Dx) | +--------+ + + + + | 08/24/ | Hospital | | Estefanía Hairston | Arrived | | 2017 | Encounter | | MD Alana | | +--------+ + + + + | 08/19/ | Hospital | | Yoan Paredes DO | Mucositis due to | | 2017 | Encounter | | | radiation therapy | | | | | | (Primary Dx); | | | | | | Squamous cell | | | | | | carcinoma of larynx | | | | | | (HCC) | +--------+ + + + + | 08/19/ | Hospital | | Sterling Thomas, | 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 | | | | | | (HCC); Encounter for | | | | | | antineoplastic | | | | | | chemotherapy | +--------+ + + + + | 08/19/ | Telephone | | Yoan Paredes DO | Other | | 2017 | | | | | +--------+ + + + + | 08/18/ | Hospital | | Estefanía Hairston | | | 2017 | Encounter | | MD Ezekile Warner, | | | | | | Joselin Warner RDN | | +--------+ + + + + | 08/18/ | Hospital | | Sterling Thomas, | 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 | | | | | | (HCC) (Primary Dx); | | | | | | Elevated LFTs | +--------+ + + + + | 08/18/ | Hospital | | Sterling Thomas, | 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 | | | | | | (HCC); Encounter for | | | | | | antineoplastic | | | | | | chemotherapy ; | | | | | | Tracheostomy, acute | | | | | | management (HCC) | +--------+ + + + + | 08/18/ | Nurse Only | | Arabella, | | | 2017 | | | [facility] | | +--------+ + + + + | 08/12/ | Hospital | | Estefanía Hairston | Squamous cell | | 2017 | Encounter | | [place], | carcinoma of larynx | | | | | | (HCC) (Primary Dx) | +--------+ + + + + | 08/12/ | Hospital | | Sterling Thomas, | Canceled (OTHER) | | 2017 | Encounter | | MD | | +--------+ + + + + | 08/11/ | Hospital | | Sterling Thomas, | | | 2017 | Encounter | | Joselin Boyle | | | | | | [place], RDN | | +--------+ + + + + | 08/11/ | Hospital | | Sterling Thomas, | 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 | | | | | | (HCC); Encounter for | | | | | | antineoplastic | | | | | | chemotherapy | +--------+ + + + + | 08/10/ | Hospital | | Sterling Thomas, | 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 | | | | | | (HCC) (Primary Dx); | | | | | | Elevated LFTs | +--------+ + + + + | 08/10/ | Hospital | | Sterling Thomas, | 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 | | | | | | (HCC); Encounter for | | | | | | antineoplastic | | | | | | chemotherapy | +--------+ + + + + | 08/10/ | Orders Only | | Estefanía Hairston | Larynx cancer (HCC) | | 2018 | | | MD Alana | (Primary Dx) | +--------+ + + + + | 08/10/ | Documentati | | Laisha Wilson | | | 2017 | on | | A, OT | | +--------+ + + + + | 08/05/ | Hospital | | Estefanía Hairston | 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, 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 | | | | | | (HCC) (Primary Dx) | +--------+ + + + + | 08/03/ | Hospital | | Sterling Thomas | 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 | | | | | | (HCC) (Primary Dx); | | | | | | Chemotherapy induced | | | | | | neutropenia (HCC); | | | | | | Bronchitis | +--------+ + + + + | 08/03/ | Hospital | | Sterling Thomas | 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 | | | | | | (HCC) (Primary Dx) | +--------+ + + + + | 08/02/ | Emergency | | Buchanan, | Lower respiratory | | 2018 | | | Manuel Masters MD | infection (Primary | | | | | | Dx); Tracheostomy | | | | | | care ([facility]); | | | | | | Hemoptysis, endemic | | | | | | ([facility]) | +--------+ + + + + | 07/29/ | Hospital | | Estefanía Hairston | Laryngeal cancer | | 2017 | Encounter | | MD Alana | ([facility]) (Primary Dx) | +--------+ + + + + | 07/28/ | Orders Only | | Estefanía Hairston | Laryngeal cancer | | 2017 | | | MD Alana | ([facility]) (Primary Dx) | +--------+ + + + + | 07/27/ | Telephone | | Estefanía Hairston | Medication Orders | | 2017 | | | MD Alana | | +--------+ + + + + | 07/26/ | Hospital | | Jamie Andres | 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 | | MD Manuel | carcinoma of larynx | | | | | | ([facility]) (Primary Dx); | | | | | | Tracheostomy, acute | | | | | | management ([facility]); | | | | | | Encounter for | | | | | | antineoplastic | | | | | | chemotherapy | +--------+ + + + + | 07/24/ | Hospital | | Estefanía Hairston | | | 2017 | Encounter | | MD Alana | | +--------+ + + + + | 07/23/ | Orders Only | | Yoan Paredes DO | Mucositis due to | | 2018 | | | | radiation therapy | | | | | | (Primary Dx) | +--------+ + + + + | 07/22/ | Hospital | | Estefanía Hairston | 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 [place]ana | carcinoma of larynx | | | | | | ([facility]) (Primary Dx) | +--------+ + + + + | 07/20/ | Hospital | | Sterling Thomas, | 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 | | | | | | (HCC) (Primary Dx) | +--------+ + + + + | 07/20/ | Hospital | | Goyo Moe | Squamous cell | | 2017 | Encounter | | Aspen Lopez | carcinoma of larynx | | | | | | (HCC) (Primary Dx); | | | | | | Encounter for | | | | | | antineoplastic | | | | | | chemotherapy | +--------+ + + + + | 07/16/ | Hospital | | Sterling Thomas | 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 | | | | | | (HCC); Encounter for | | | | | | antineoplastic | | | | | | chemotherapy | +--------+ + + + + | 07/15/ | Hospital | | Estefanía Hairston | 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 Alana | carcinoma of larynx | | | | | | (HCC) (Primary Dx) | +--------+ + + + + | 07/15/ | Hospital | | Sterling Thomas, | 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 | | | | | | (HCC); Encounter for | | | | | | antineoplastic | | | | | | chemotherapy | +--------+ + + + + | 07/14/ | Hospital | | Sterling Thomas, | 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 | | | | | | (HCC); Encounter for | | | | | | antineoplastic | | | | | | chemotherapy | +--------+ + + + + | 07/13/ | Hospital | | Goyo Moe | Squamous cell | | 2017 | Encounter | | Aspen Lopez | carcinoma of larynx | | | | | | (HCC) (Primary Dx) | +--------+ + + + + | 07/13/ | Hospital | | Sterling Thomas, | Squamous cell | | 2017 | Encounter | | Joselin Boyle | carcinoma of larynx | | | | | ISAAC Warner | ([facility]) | +--------+ + + + + | 07/13/ | Hospital | | Sterling Thomas, | 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 | | | | | | ([facility]) (Primary Dx) | +--------+ + + + + | 07/13/ | Hospital | | Sterling Thomas, | Encounter for | | 2017 | Encounter | | | antineoplastic | | | | | | chemotherapy ; | | | | | | Squamous cell | | | | | | carcinoma of larynx | | | | | | ([facility]) | +--------+ + + + + | 07/01/ | Hospital | | Estefanía Hairston | 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 Alana | carcinoma of larynx | | | | | | ([facility]) | +--------+ + + + + | 07/01/ | Hospital | | Estefanía Hairston | 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 Alana | carcinoma of larynx | | | | | | (HCC) | +--------+ + + + + | 06/30/ | Hospital | | Sterling Thomas, | Squamous cell | | 2017 | Encounter | | | carcinoma of larynx | | | | | | (HCC) (Primary Dx) | +--------+ + + + + | 06/30/ | Telephone | | Sterling Thomas | TEO Note | | 2017 | | | | | +--------+ + + + + | 06/30/ | Telephone | | Arabella | TEO Note | | 2017 | | | [facility] | | +--------+ + + + + | 06/29/ | Hospital | | Aneudy, | No Show | | 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 | | Manuel Waldron MD | | +--------+ + + + + | 06/25/ | Hospital | | Estefanía Hairston | | | 2017 | Encounter | | MD Alana | | +--------+ + + + + | 06/25/ | Hospital | | Estefanía Hairston | 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 | | MD Alana | carcinoma of larynx | | | | | | (HCC) (Primary Dx) | +--------+ + + + + | 06/10/ | Hospital | | Lida Garcia | | | 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 | | D, PT | | +--------+ + + + + | 06/01/ | Hospital | | Ac Hines, | Tracheostomy, acute | | 2018 - | Encounter | | | management (HCC) | | | | | | (Primary Dx); | | | | | Bilateral foot pain; | | 2017 | | | | Right leg pain; | | | | | | Laryngeal carcinoma | | | | | | (HCC); Status post | | | | | | emergency | | | | | | tracheotomy for | | | | | | assistance in | | | | | | breathing (HCC); | | | | | | Chronic obstructive | | | | | | pulmonary disease, | | | | | | unspecified COPD | | | | | | type (HCC); Smoker; | | | | | | Squamous cell | | | | | | carcinoma of larynx | | | | | | (HCC) | +--------+ + + + + +---+ + | | Discharge | | | Summaries | | | - Jeannie, | | | Ashkan Espinosa, | | | MD - | | | 06/10/2018 | | | 1044 PDT | | | Formatting | | | of this | | | note may be | | | different | | | from the | | | original.DI | | | LIDIARGE | | | SUMMARYPati | | | ent Name: | | | Fernandoita | | | Ildia | | | Doroteo | | | : | | | 1955 | | | MRN: | | | [id number] | | | Date of | | | Admission: | | | 06/01/2018 | | | Date of | | | Discharge: | | | 06/10/18 | | | Admitting | | | Physician: | | | Ac Warner | | | Donny, | | | | | | Discharging | | | Physician: | | | Ashkan | | | Scar Dennis, | | | MD | | | Primary | | | Care | | | Provider: | | | Yeyo | | | Kargar, DO | | | | | | Discharge | | | Diagnoses: | | | Principal | | | Problem: | | | Squamous | | | cell | | | carcinoma | | | of larynx | | | Active | | | Problems: | | | Smoker | | | Tracheostom | | | y, acute | | | management | | | Resolved | | | Problems: | | | * No | | | resolved | | | hospital | | | problems. * | | | Patient | | | Active | | | Problem | | | List | | | Diagnosis | | | | | | Bilateral | | | foot pain | | | | | | Right leg | | | pain | | | Squamous | | | cell | | | carcinoma | | | of larynx | | | | | | Smoker | | | | | | Tracheostom | | | y, acute | | | management | | | | | | Consultants | | | : Dr. | | | Donny of | | | ENT/speech | | | | | | therapy/phy | | | sical | | | therapyProc | | | edures: No | | | new | | | imaging | | | hereNo | | | results | | | found.Labs | | | in the last | | | 24 | | | hours:No | | | results | | | found for | | | this or any | | | previous | | | visit (from | | | the past | | | 24 | | | hour(s)). | | | Reason for | | | Admission: | | | Please | | | refer to | | | the H&P for | | | full | | | details. | | | In short, | | | this is a | | | 62 y.o. | | | female with | | | a history | | | of smoking, | | | recently | | | diagnosed | | | laryngeal | | | carcinoma | | | who | | | recently | | | required | | | tracheostom | | | y after | | | laryngeal | | | carcinoma | | | debulking | | | surgery, | | | admitted | | | for | | | management | | | of new | | | trach. | | | Problem-[facility] | | | ented | | | Hospital | | | Course:Squa | | | mous cell | | | carcinoma | | | of | | | larynx/alethea | | | gement of | | | new | | | tracheostom | | | y:- S/p | | | debulking | | | surgery and | | | trach | | | [facility] | | | [facility], | | | transferred | | | to [facility] | | | for acute | | | care- | | | Admitted | | | for | | | management | | | of new | | | trach- Dr. | | | Donny | | | evaluated | | | 06/08 and | | | 06/09, | | | placed #4 | | | uncuffed | | | trach tube, | | | no acute | | | issues with | | | | | | tracheostom | | | y, just | | | needs | | | training, - | | | Does not | | | need oxygen | | | at this | | | time- Pain | | | controlled | | | despite | | | titrating | | | down | | | oxycodone- | | | Does well | | | walking the | | | floors, | | | doing well | | | with ADL's, | | | seems to | | | be okay to | | | go home, | | | Passy Samantha | | | valve | | | provided, | | | discharged | | | home 06/10 | | | with trach | | | supplies, | | | home health | | | | | | ST/PT/nursi | | | ng- | | | Eating/drin | | | meliza well, | | | no | | | aspiration, | | | stopped | | | IVF- Needs | | | to be | | | presented | | | at tumor | | | board for | | | management | | | of | | | laryngeal | | | cancer, | | | follow up | | | with Dr. | | | [place] S | | | moker/COPD: | | | - Nicotine | | | patch- Did | | | not require | | | oxygen at | | | discharge, | | | no acute | | | lung | | | problems, | | | but did | | | order nebs | | | for chronic | | | COPD at | | | dischargeCo | | | nstipation: | | | - | | | Encouraged | | | aggressive | | | bowel | | | regimen | | | while using | | | | | | opiatesCode | | | | | | Status:Full | | | | | | CodeDisposi | | | tion:Home | | | with home | | | healthDisch | | | arge | | | Condition:S | | | table, | | | alert, | | | oriented, | | | and | | | cooperative | | | , walking | | | the halls | | | without | | | problemTrac | | | h tube in | | | place with | | | clean | | | woundLungs | | | somewhat | | | diminished | | | throughout, | | | no | | | crackles or | | | wheezesAbd | | | soft, | | | NTExt WWP | | | without | | | edemaFollow | | | -up | | | Information | | | Ac M. | | | [place], | | | MD In 5 | | | days. | | | Specialty: | | | | | | Otolaryngol | | | ogyWhy: | | | For wound | | | re-check--i | | | n [place] | | | | | | officeConta | | | ct | | | information | | | :[address] | | [address], [place] | | | [address] | | | [place] | | | [phone] | | [phone] | | | Discharge | | | Medications | | | New | | | Medications | | | Details | | | Commode | | | Bedside | | | Misc 1 | | | Application | | | by Does | | | not apply | | | route as | | | needed. | | | Cool Mist | | | Humidifier | | | 1 gallon | | | Misc 1 | | | applicator | | | by Does not | | | apply | | | route as | | | needed. | | | docusate | | | sodium 100 | | | MG capsule | | | Take 100 mg | | | by mouth 2 | | | times | | | daily.aka: | | | COLACE | | | HYDROcodone | | | -acetaminop | | | hen 5-325 | | | mg per | | | tablet Take | | | 1-2 | | | tablets by | | | mouth every | | | 4 hours as | | | | | | needed.aka: | | | NORCO | | | nicotine 21 | | | mg/24 hr | | | Place 1 | | | patch onto | | | the skin | | | Daily.aka: | | | NICODERM | | | polyethylen | | | e glycol | | | packet Take | | | 1 diluted | | | packet by | | | mouth | | | Daily.aka: | | | MIRALAX | | | senna 8.6 | | | mg tablet | | | Take 1 | | | tablet by | | | mouth 2 | | | times daily | | | (before | | | meals).aka: | | | SENOKOT | | | Studies | | | With | | | Pending | | | Results:Non | | | e Greater | | | than 30 | | | minutes | | | were spent | | | on | | | discharge | | | and | | | coordinatio | | | n of | | | post-hospit | | | al | | | care.Electr | | | onically | | | signed by: | | | Ashkan Abbott | | | MD Jeannie, | | | 06/10/2018 | | | 10:44 | | | [facility] | +---+ + from Last 3 Months Family History + + +------+ + | Medical History | Relation | Name | Comments | + + +------+ + | Heart attack | Father | 50 | | + + +------+ + | Heart failure | Mother | 77 | | + + +------+ + + +------+ + + | Relation | Name | Status | Comments | + +------+ + + | Father | 50 | | | + +------+ + + | Mother | 77 | | | + +------+ + + Social History + + + +--------+------+ | Tobacco Use | Types | Packs/Day | Years | Date | | | | | Used | | + + + +--------+------+ | Current Every Day | Cigarettes | 0.5 | 45 | | | Smoker | | | | | + + + +--------+------+ + +---+---+---+ | Smokeless Tobacco: | | | | | Never Used | | | | + +---+---+---+ + + | Comments: quit about 3 weeks ago, but has had a few cigarettes per day lately. | + + + + +---------+ + | Alcohol Use | Drinks/We | oz/Week | Comments | | | ek | | | + + +---------+ + | No | | | quit in 1992 | + + +---------+ + + + + | Sex Assigned at | Date Recorded | | | | + + + | Not on file | | + + + Last Filed Vital Signs + + + + | Vital Sign | Reading | Time Taken | + + + + | Blood Pressure | 121/69 | 08/25/2018899 PST | + + + + | Pulse | 72 | 08/25/2018899 PST | + + + + | Temperature | 37.3 C (99.2 F) | 08/25/2018899 PST | + + + + | Respiratory Rate | 20 | 08/25/2018899 PST | + + + + | Oxygen Saturation | 98% | 08/25/2018899 PST | + + + + | Inhaled Oxygen | - | - | | Concentration | | | + + + + | Weight | 65.6 kg (144 lb 10 | 08/25/2018899 PST | | | oz) | | + + + + | Height | 154.9 cm (5' 1") | 08/02/2018712 PDT | + + + + | Body Mass Index | 27.33 | 08/25/2018899 PST | + + + + Plan of Treatment +--------+ + + + + | Date | Type | Specialty | Care Team | Description | +--------+ + + + + | 08/26/ | Appointment | | Estefanía Hairston | | | 2017 | | | MD Guero Warner | | | | | | [place] | | | | | | [phone] | | | | | | | | +--------+ + + + + | 09/15/ | Appointment | | Sterling Thomas, | | | 2017 | | | MD Guero SALGADO | | | | | | [place] | | | | | | [address] | | | | | | [phone] | | | | | | | | +--------+ + + + + | 09/15/ | Appointment | | Joselin Falcon, | | | 2017 | | | RDN | | +--------+ + + + + + + + + + | Health Maintenance | Due Date | Last Done | Comments | + + + + + | Hepatitis C | | | | | Screening | 6 | | | + + + + + | Vaccine: | | | | | Dtap/Tdap/Td (1 - | 5 | | | | Tdap) | | | | + + + + + | Vaccine: | | | | | Pneumococcal 19-64 | 5 | | | | Highest Risk (1 of 3 | | | | | - PCV13) | | | | + + + + + | Cervical Cancer | | | | | Screening (Pap) | 6 | | | + + + + + | BREAST CANCER | | | | | SCREENING (MAMM Q2 | 6 | | | | YEARS 50-74) | | | | + + + + + | Colorectal Cancer | | | | | Screening | 6 | | | | (Colonoscopy) | | | | + + + + + | Vaccine: Zoster (1 | | | | | of 2) | 6 | | | + + + + + | Adult Annual | | | | | Wellness Visit | 5 | | | + + + + + | Vaccine: Influenza | | | | | (#1) | 8 | | | + + + + + Procedures + +--------+ + + + | Procedure Name | Priori | Date/Time | Associated Diagnosis | Comments | | | ty | | | | + +--------+ + + + | MAGNESIUM | STAT | 08/25/2018 | 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 | + +--------+ + + + | CBC WITH | STAT | 08/25/2018 | Squamous cell | Results for this | | DIFFERENTIAL | | 0744 PST | carcinoma of larynx | procedure are in the | | | | | ([facility]) | results section. 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 | + +--------+ + + + | POC GLUCOSE | Routin | 08/18/2018 | | Results for this | | | e | 1417 PDT | | procedure are in the | | | | | | results section. 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 | | | | | antineoplastic | | | | | | chemotherapy | | + +--------+ + + + | CBC WITH | STAT | 08/18/2018 | Squamous cell | Results for this | | DIFFERENTIAL | | 0849 PDT | carcinoma of larynx | procedure are in the | | | | | ([facility]) Encounter for | results section. 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 | | | | | antineoplastic | | | | | | chemotherapy | | + +--------+ + + + | SLIDE REVIEW, | Routin | 08/10/2018 | Squamous cell | Results for this | | PERIPHERAL SMEAR | e | 0813 PDT | carcinoma of larynx | procedure are in the | | | | | ([facility]) | results section. 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 | + +--------+ + + + | CBC WITH | STAT | 08/10/2018 | Squamous cell | Results for this | | DIFFERENTIAL | | 0813 PDT | carcinoma of larynx | procedure are in the | | | | | ([facility]) | results section. 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 | + +--------+ + + + | CBC WITH | STAT | 08/03/2018 | Squamous cell | Results for this | | DIFFERENTIAL | | 0816 PDT | carcinoma of larynx | procedure are in the | | | | | ([facility]) | results section. 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 | + +--------+ + + + | XR CHEST AP PORTABLE | STAT | 08/02/2018 | | Results for this | | | | 0821 PDT | | procedure are in the | | | | | | results section. | + +--------+ + + + | ED INFORMATION | Routin | 08/02/2018 | | | | EXCHANGE | e | 0704 PDT | | | + +--------+ + + + +---+--------+ | | | | | Proced | | | ure | | | Note - | | | Venkatesh, | | | Lab In | | | | | | Hlseve | | | n - | | | 10/15/ | | | 2018 | | | 0705 | | | PDT | | | Format | | | ting | | | of | | | this | | | note | | | may be | | | | | | differ | | | ent | | | from | | | the | | | origin | | | al.VENKATESH | | | E07:01 | | | DELITA | | | | | | [phone] | | | [phone] | | | This | | | patien | | | t has | | | regist | | | ered | | | at the | | | | | | Provid | | | ence | | | [facility] | | | [facility] | [facility] | | | Center | | | | | | Emerge | | | ncy | | | Depart | | | ment | | | For | | | more | | | inform | | | ation | | | visit: | | | | | | https: | | | //secu | | | [email or web address] | | | ecarep | | | [email or web address] | | | m/[email or web address] | | | ent/df | | | [id number] | | | -[id number] | | | [id number] | | | 3b5-ab | | | [id number] | | | 1b4d | | | Securi | | | ty | | | Events | | | No | | | recent | | | | | | Securi | | | ty | | | Events | | | | | | curren | | | tly on | | | | | | fileED | | | Care | | | Guidel | | | jm | | | from | | | [facility] | | | alLast | | | | | | Update | | | d: | | | 8/30/1 | | | 8 | | | 10:24 | | | AM | | | Care | | | Coordi | | | nation | | | :PATIE | | | NT IS | | | UNDER | | | SERVIC | | | ES AT | | | ST | | | [facility] | | | Y HOME | | | | | | HEALTH | | | | | | DEPART | | | MENT.I | | | F | | | PATIEN | | | T IS | | | SEEN | | | IN THE | | | ED, | | | PLEASE | | | | | | NOTIFY | | | THEM | | | AT | | | [phone] | | | .IF | | | AFTER | | | HOURS | | | OR ON | | | WEEKEN | | | DS | | | PLEASE | | | CALL | | | SWITCH | | | BOARD | | | AT | | | [phone] | | [phone] | | | AND | | | HAVE | | | ON-TRINH | | | L RN | | | NOTIFI | | | ED.The | | | se are | | | | | | guidel | | | jm | | | and | | | the | | | provid | | | er | | | should | | | | | | exerci | | | se | | | clinic | | | al | | | judgme | | | nt | | | when | | | provid | | | ing | | | care.R | | | ecent | | | Emerge | | | ncy | | | Depart | | | ment | | | Visit | | | Summar | | | yAdmit | | | Date | | | Facili | | | ty | | | City | | | State | | | Type | | | Major | | | Type | | | Diagno | | | ses or | | | Chief | | | | | | Compla | | | int | | | Oct | | | 15, | | | 2018 | | | Provid | | | ence | | | [facility] | [place] | | | [place] | | | Emerge | | | ncy | | | Emerge | | | ncy | | | wound | | | care | | | Sep | | | 28, | | | 2018 | | | [facility] | | | [facility] | | | [place] | | | [place] | | | Emerge | | | ncy | | | Emerge | | | ncy | | | | | | Nicoti | | | ne | | | depend | | | ence, | | | unspec | | | ified, | | | | | | uncomp | | | licate | | | d | | | Type 2 | | | | | | diabet | | | es | | | mellit | | | us | | | withou | | | t | | | compli | | | cation | | | s | | | Shortn | | | ess of | | | | | | breath | | | | | | Malfun | | | ction | | | of | | | trache | | | ostomy | | | stoma | | | | | | Allerg | | | y | | | status | | | to | | | narcot | | | ic | | | agent | | | status | | | | | | Other | | | long | | | term | | | (curre | | | nt) | | | drug | | | therap | | | y Sep | | | 22, | | | 2018 | | | [facility] [place] | | | [facility] | | | [place] | | | [place] | | | Emerge | | | ncy | | | Emerge | | | ncy | | | | | | Malign | | | ant | | | neopla | | | sm of | | | larynx | | | , | | | unspec | | | ified | | | | | | Bronch | | | itis, | | | not | | | specif | | | ied as | | | acute | | | or | | | chroni | | | c | | | Other | | | chest | | | pain | | | | | | Other | | | long | | | term | | | (curre | | | nt) | | | drug | | | therap | | | y | | | Allerg | | | y | | | status | | | to | | | narcot | | | ic | | | agent | | | status | | | | | | Type 2 | | | | | | diabet | | | es | | | mellit | | | us | | | withou | | | t | | | compli | | | cation | | | s | | | Nicoti | | | ne | | | depend | | | ence, | | | unspec | | | ified, | | | | | | uncomp | | | licate | | | d Aug | | | 29, | | | 2018 | | | [facility] [place] | | | [facility] | | | [place] | | | [place] | | | Emerge | | | ncy | | | Emerge | | | ncy | | | Chief | | | Compla | | | int: | | | DIFFIC | | | ULTY | | | BREATH | | | ING | | | E.D. | | | Visit | | | Count | | | (12 | | | mo.)Fa | | | cility | | | | | | Visits | | | Low | | | Acuity | | | | | | Provid | | | ence | | | St. | | | [facility] | | | Medica | | | l | | | Center | | | 1 0 | | | [facility] [place] [facility] | [facility] | | | Hospit | | | al 4 0 | | | Total | | | 5 0 | | | Note: | | | Visits | | | | | | indica | | | te | | | total | | | known | | | visits | | | . | | | Medica | | | id Low | | | | | | Acuity | | | Dx | | | are | | | the | | | number | | | of | | | primar | | | y | | | diagno | | | ses on | | | the | | | Medica | | | id's | | | Low | | | Acuity | | | dx | | | list. | | | | | | Recent | | | | | | Inpati | | | ent | | | Visit | | | [facility] | | | yAdmit | | | Date | | | Facili | | | ty | | | City | | | State | | | Type | | | Major | | | Type | | | Diagno | | | ses or | | | Chief | | | | | | Compla | | | int | | | Aug | | | 14, | | | 2018 | | | Provid | | | ence | | | [facility] | | | [facility] | [place] | | | [place] | | | Surgic | | | al | | | Servic | | | es | | | Inpati | | | ent | | | New | | | trach | | | | | | Pain | | | in | | | right | | | leg | | | Pain | | | in | | | right | | | foot | | | Pain | | | in | | | left | | | foot | | | | | | Malign | | | ant | | | neopla | | | sm of | | | larynx | | | , | | | unspec | | | ified | | | | | | Trache | | | ostomy | | | | | | status | | | | | | Chroni | | | c | | | obstru | | | ctive | | | pulmon | | | theresa | | | diseas | | | e, | | | unspec | | | ified | | | | | | Nicoti | | | ne | | | depend | | | ence, | | | unspec | | | ified, | | | | | | uncomp | | | licate | | | d | | | Encoun | | | ter | | | for | | | attent | | | ion to | | | | | | trache | | | ostomy | | | PDMP | | | | | | Report | | | PDMP | | | query | | | found | | | no | | | report | | | .Care | | | Provid | | | ersPro | | | vider | | | PRC | | | Type | | | Phone | | | Fax | | | Servic | | | e | | | Dates | | | KARGAR | | | , | | | YEYO, | | | DO | | | Entertainment Lawyer | | | al | | | Medici | | | ne | | | ([phone]) | | | [phone] | | | 35 | | | (541) | | | [phone] | | | 74 Aug | | | 31, | | | 2018 - | | | | | | Curren | | | t | | | ACEVEDO, | | | | | | LOHITH | | | | | | VEERAP | | | PA, MD | | | | | | Entertainment Lawyer | | | al | | | Medici | | | ne | | | ([phone]) | | | [phone] | | | 21 | | | (541) | | | [phone] | | | 19 Sep | | | 24, | | | 2018 - | | | | | | Curren | | | t | | | Care | | | Histor | | | yMedic | | | al/Sury | | | [email or web address] | | | /31/18 | | | 12:00 | | | AM | | | [facility] [place] [facility] | | [facility] | | | al | | | Patien | | | t is | | | curren | | | tly | | | establ | | | ished | | | with | | | St | | | [place] | | | y | | | Clinic | | | . If | | | patien | | | t is | | | seen | | | in the | | | ED | | | during | | | | | | busine | | | ss | | | hours. | | | | | | Please | | | | | | contac | | | t [facility] at [facility] | | | | | | [place] | | | y | | | Clinic | | | .Care | | | Recomm | | | endati | | | on:Thi | | | s | | | patien | | | t has | | | had 5 | | | or | | | more | | | Emerge | | | ncy | | | Depart | | | ment | | | visits | | | in | | | the | | | last | | | 12 | | | months | | | .Patie | | | nt | | | requir | | | es | | | educat | | | ion on | | | the | | | scope | | | and | | | purpos | | | e of | | | the ED | | | as an | | | acute | | | care | | | provid | | | er not | | | a | | | Primar | | | y Care | | | | | | Provid | | | er and | | | | | | should | | | not | | | be | | | utiliz | | | ed for | | | | | | chroni | | | c | | | condit | | | ions.T | | | hese | | | are | | | guidel | | | jm | | | and | | | the | | | provid | | | er | | | should | | | | | | exerci | | | se | | | clinic | | | al | | | judgme | | | nt | | | when | | | provid | | | ing | | | care.C | | | riteri | | | a met | | | Care | | | Guidel | | | jm | | | 4 | | | visits | | | in | | | 60Know | | | n | | | Aliase | | | sNo | | | known | | | aliase | | | s. The | | | above | | | | | | inform | | | ation | | | is | | | provid | | | ed for | | | the | | | sole | | | purpos | | | e of | | | patien | | | t | | | treatm | | | ent. | | | Use of | | | this | | | inform | | | ation | | | beyond | | | the | | | terms | | | of | | | Data | | | Sharin | | | g | | | Memora | | | ndum | | | of | | | Unders | | | tandin | | | g and | | | Licens | | | e | | | Agreem | | | ent is | | | | | | prohib | | | ited. | | | In | | | certai | | | n | | | cases | | | not | | | all | | | visits | | | may | | | be | | | repres | | | ented. | | | | | | Consul | | | t the | | | aforem | | | ention | | | ed | | | facili | | | ties | | | for | | | additi | | | onal | | | inform | | | ation. | | | 2018 | | | [employer] | | | tive | | | Medica | | | l | | | [employer] | | | logies | | | , [employer] 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 | | | | | acute management | | | | | | ([facility]) Encounter for | | | | | | antineoplastic | | | | | | chemotherapy | | + +--------+ + + + | CBC WITH | STAT | 07/26/2018 | Squamous cell | Results for this | | DIFFERENTIAL | | 1302 PDT | carcinoma of larynx | procedure are in the | | | | | ([facility]) Tracheostomy, | results section. | | | | | acute management | | | | | | ([facility]) Encounter for | | | | | | antineoplastic | | | | | | chemotherapy | | + +--------+ + + + | CREATININE | Routin | 07/16/2018 | Squamous cell | Results for this | | | e | 1052 PDT | carcinoma of larynx | procedure are in the | | | | | ([facility]) Encounter for | results section. 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 | + +--------+ + + + | CBC WITH | STAT | 07/13/2018 | Squamous cell | Results for this | | DIFFERENTIAL | | 0824 PDT | carcinoma of larynx | procedure are in the | | | | | ([facility]) | results section. 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 | + +--------+ + + + | PET CT SKULL BASE TO | Routin | 07/01/2018 | Squamous cell | Results for this | | MID THIGH | e | 1323 PDT | carcinoma of larynx | procedure are in the | | | | | ([facility]) | results section. | + +--------+ + + + | CT TREATMENT PLAN | Routin | 07/01/2018 | Squamous cell | Results for this | | COMPLEX | e | 0954 PDT | carcinoma of larynx | procedure are in the | | | | | ([facility]) | results section. | + +--------+ + + + | LABS - EXTERNAL SCAN | | 06/16/2018 | | Results for this | | | | 0000 PDT | | procedure are in the | | | | | | results section. | + +--------+ + + + | PERFORM HOME O2 | Routin | 06/08/2018 | | | | EVALUATION | e | 0839 PDT | | | + +--------+ + + + | CALCIUM, IONIZED | Routin | 06/06/2018 | | Results for this | | | e | 0606 PDT | | procedure are in the | | | | | | results section. | + +--------+ + + + | PHOSPHORUS | Routin | 06/06/2018 | | Results for this | | | e | 0606 PDT | | procedure are in the | | | | | | results section. | + +--------+ + + + | MAGNESIUM | Routin | 06/06/2018 | | Results for this | | | e | 0606 PDT | | procedure are in the | | | | | | results section. | + +--------+ + + + | CBC NO DIFFERENTIAL | Routin | 06/06/2018 | | Results for this | | | e | 0606 PDT | | procedure are in the | | | | | | results section. | + +--------+ + + + | BASIC METABOLIC | Routin | 06/06/2018 | | Results for this | | PANEL | e | 0606 PDT | | procedure are in the | | | | | | results section. | + +--------+ + + + | CULTURE, MRSA | Routin | 06/01/2018 | | Results for this | | | e | 1659 PDT | | procedure are in the | | | | | | results section. | + +--------+ + + + | PATHOLOGY - EXTERNAL | | 06/01/2018 | | Results for this | | SCAN | | 0000 PDT | | procedure are in the | | | | | | results section. | + +--------+ + + + from Last 3 Months Results CBC with Differential (08/25/2018 0744)Only the most recent of 6 results within the time kelly meza is included. + + + + + | Component | Value | Ref Range | Performed At | + + + + + | WBC | 4.0 | 4.0 - 11.0 K/uL | [facility] | | | | | [facility] | | | | | [place] - | | | | | LABORATORY | + + + + + | RBC | 4.27 | 3.70 - 5.20 M/uL | [facility] - | | | | | [facility] | + + + + + | Hgb | 13.1 | 11.5 - 16.0 g/dL | [facility] - | | | | | [facility]ORY | + + + + + | Hct | 38.3 | 34.0 - 47.0 % | [facility] - | | | | | [facility]ORY | + + + + + | MCV | 89.7 | 83.0 - 101.0 fL | [facility] - | | | | | [facility]ORY | + + + + + | MCH | 30.7 | 28.0 - 35.0 pg | [facility] - | | | | | [facility] | + + + + + | MCHC | 34.2 | 32.0 - 36.0 g/dL | [facility] - | | | | | [facility] | + + + + + | RDW-CV | 13.5 | <15.0 % | [facility] - | | | | | [facility]ORY | + + + + + | RDW-SD | 43.8 | 35.1 - 46.3 fL | [facility] - | | | | | [facility] | + + + + + | Platelet Count | 33 (L) | 140 - 440 K/uL | [facility] - | | | | | [facility] | + + + + + | MPV | 11.9 | 6.5 - 12.4 fL | [facility] - | | | | | [facility] | + + + + + | % Neutrophils | 54.5 | 45.0 - 82.0 % | [facility] - | | | | | [facility] | + + + + + | % Lymphocytes | 27.9 | 20.0 - 45.0 % | [facility] - | | | | | [facility] | + + + + + | % Monocytes | 13.3 (H) | 4.0 - 12.0 % | [facility] - | | | | | LAB[facility]ORY | + + + + + | % Eosinophils | 3.5 | 0.0 - 5.0 % | [facility] - | | | | | [facility] | + + + + + | % Basophils | 0.5 | 0.0 - 1.0 % | [facility] - | | | | | [facility]ORY | + + + + + | % Immature | 0.3 | 0.0 - 0.4 % | [facility] | | granulocytes | | | [facility] - | | | | | [facility] | + + + + + | Absolute Neutrophils | 2.17 | 1.80 - 8.50 K/uL | [facility] - | | | | | [facility] | + + + + + | Absolute Lymphocytes | 1.11 | 0.60 - 3.20 K/uL | [facility] - | | | | | [facility] | + + + + + | Absolute Monocytes | 0.53 | 0.00 - 1.00 K/uL | [facility] - | | | | | [facility]ORY | + + + + + | Absolute Eosinophils | 0.14 | 0.00 - 0.40 K/uL | [facility] - | | | | | [facility] | + + + + + | Absolute Basophils | 0.02 | 0.00 - 0.10 K/uL | [facility] - | | | | | [facility] | + + + + + | Absolute Imm. | 0.01 | 0.00 - 0.03 K/uL | [facility] | | Granulocytes | | | [facility] - | | | | | [facility] | + + + + + | nRBC | 0 | 0 - 2 per 100 WBC's | [facility] - | | | | | [facility]ORY | + + + + + | NRBC ABS | 0.00 | 0.00 - 0.01 K/uL | [facility] - | | | | | [facility]ORY | + + + + + + + | Specimen | + + | Blood | + + + + + + + | Performing | Address | City/State/Zipcode | Phone Number | | Organization | | | | + + + + + | [facility] | [address] | [place], [place] | [phone] | | [facility] | | [address] | | | - LABORATORY | | | | + + + + + | [facility] | [address] | [place], [place] | | | [facility] | | [address] | | | - LABORATORY | | | | + + + + + Magnesium (08/25/2018 0744)Only the most recent of 7 results within the time period is incl uded. + +-------+ + + | Component | Value | Ref Range | Performed At | + +-------+ + + | Magnesium | 1.8 | 1.8 - 2.5 mg/dL | [facility] | | [facility] | | | [facility] - | | | | | LABORATORY | + +-------+ + + + + | Specimen | + + | Blood | + + + + + + + | Performing | Address | City/State/Zipcode | Phone Number | | Organization | | | | + + + + + | [facility] | [address] | [place] | [phone] | | [facility] | | [address] | | | - LABORATORY | | | | + + + + + | [facility] | [address] | [place], [place] | | | [facility] | | [address] | | | - LABORATORY | | | | + + + + + Comprehensive Metabolic Panel (08/25/2018 0744)Only the most recent of 6 results within the time period is included. + + + + + | Component | Value | Ref Range | Performed At | + + + + + | NA | 133 (L) | 136 - 149 mmol/L | [facility] | | | | | [facility] | | | [facility] - | | | | | LABORATORY | + + + + + | K | 4.7 | 3.5 - 5.1 mmol/L | [facility] | | | | | [facility] | | | | [facility] - | | | | | LABORATORY | + + + + + | CL | 101 | 98 - 109 mmol/L | [facility] | | | | | [facility] | | [facility] - | | | | | LABORATORY | + + + + + | CO2 | 23 (L) | 24 - 31 mmol/L | [facility] | | | | | [facility] | | | | [facility] - | | | | | LABORATORY | + + + + + | ANION GAP | 9 | 3 - 16 mmol/L | [facility] | | | | | [facility] | | | | [facility] - | | | | | LABORATORY | + + + + + | GLUCOSE | 358 (H) | 70 - 109 mg/dL | [facility] | | | | | [facility] | | | | | [facility] - | | | | | LABORATORY | + + + + + | BUN | 12 | 7 - 18 mg/dL | [facility]. | | | | | [facility] | | | | | CENTER - | | | | | LABORATORY | + + + + + | Creatinine, | 0.63 | 0.60 - 1.30 mg/dL | [facility]. | | Serum/Plasma | | | [facility] | | | | | CENTER - | | | | | LABORATORY | + + + + + | eGFR if not | >60Comment: GLOMERULAR | >=60 mL/min/1.73m2 | [facility] | [place] | FILTRATION | | [facility] | | | RATE,ESTIMATED mL/min | | CENTER - | | | /[id number] than 60 | | LABORATORY | | | Chronic kidney | | | | | disease,if found over a | | | | | 3-month period.Less than | | | | | 15 Kidney | | | | | failureFor | | | | | Americans,multiply the | | | | | calculated GFR by 1.21. | | | | | | | | + + + + + | CALCIUM | 9.1 | 8.3 - 10.5 mg/dL | [facility] | | | | | [facility] | | | | | [facility] - | | | | | LABORATORY | + + + + + | ALBUMIN | 3.1 (L) | 3.2 - 5.0 g/dL | [facility] | | | | | [facility] | | | | | [facility] - | | | | | LABORATORY | + + + + + | Bilirubin Total | 0.4Comment: This is an | 0.1 - 1.5 mg/dL | [facility] | | | appended report. These | | [facility] | | | results have been | | CENTER - | | | appended to a previously | | LABORATORY | | | preliminary verified | | | | | report. | | | + + + + + | Total protein | 6.5 | 6.0 - 7.8 g/dL | [facility] | | | | | [facility] | | | | | [facility] - | | | | | LABORATORY | + + + + + | AST | 71 (H)Comment: This is | 10 - 42 U/L | [facility] | | | an appended report. | | [facility] | | | These results have been | | CENTER - | | | appended to a previously | | LABORATORY | | | preliminary verified | | | | | report. | | | + + + + + | ALT | 143 (H)Comment: This is | 6 - 45 U/L | [facility] | | | an appended report. | | [facility] | | | These results have been | | CENTER - | | | appended to a previously | | LABORATORY | | | preliminary verified | | | | | report. | | | + + + + + | ALK PHOS | 78Comment: This is an | 40 - 110 U/L | [facility] | | | appended report. These | | [facility] | | | results have been | | CENTER - | | | appended to a previously | | LABORATORY | | | preliminary verified | | | | | report. | | | + + + + + | GLOBULIN | 3.4 | 2.1 - 3.8 g/dL | [facility] | | | | | [facility] | | | | | CENTER - | | | | | LABORATORY | + + + + + | Albumin/Globulin | 0.9 | 0.8 - 2.0 | [facility] | | ratio | | | [facility] | | | | | CENTER - | | | | | LABORATORY | + + + + + | BUN/CREA | 19.0 | | [facility] | | | | | [facility] | | | | | CENTER - | | | | | LABORATORY | + + + + + + + | Specimen | + + | Blood | + + + + + + + | Performing | Address | City/State/Zipcode | Phone Number | | Organization | | | | + + + + + | [facility] | [address] | [place], [place] | [phone] | | [facility] | | [address] | | | - LABORATORY | | | | + + + + + | [facility] | [address] | [place], [place] | | | [facility] | | [address] | | | - LABORATORY | | | | + + + + + POC Glucose (08/18/2018 1417) + +---------+ + + | Component | Value | Ref Range | Performed At | + +---------+ + + | Glucose, POC | 342 (H) | 70 - 109 mg/dL | [facility] | | | | | [facility] | | | | | CENTER - | | | | | LABORATORY | + +---------+ + + + + | Specimen | + + | Blood | + + + + + + + | Performing | Address | City/State/Zipcode | Phone Number | | Organization | | | | + + + + + | [facility] | [address] | [place] | [phone] | | [facility] | | [address] | | | - LABORATORY | | | | + + + + + | [facility] | [address] | [place] | | | [facility] | | [address] | | | - LABORATORY | | | | + + + + + Slide Review, Peripheral Smear (08/10/2018812) + + + + + | Component | Value | Ref Range | Performed At | + + + + + | Platelet Estimate | Adequate | Adequate | [facility] | | | | | [facility] | | | | | CENTER - | | | | | LABORATORY | + + + + + | HYPOCHROMIA | Slight (A) | (none) | [facility] | | | | | [facility] | | | | | CENTER - | | | | | LABORATORY | + + + + + | Variant Lymphocytes | Moderate (A) | (none) | [facility] | | | | | [facility] | | | | | CENTER - | | | | | LABORATORY | + + + + + + + | Specimen | + + | Blood | + + + + + + + | Performing | Address | City/State/Zipcode | Phone Number | | Organization | | | | + + + + + | [facility] | [address] | [place] | [phone] | | [facility] | | [address] | | | - LABORATORY | | | | + + + + + | [facility] | [address] | [place], [place] | | | [facility] | | [address] | | | - LABORATORY | | | | + + + + + XR Chest AP Portable (08/02/2018820) + + + | Narrative | Performed At | + + + | CLINICAL INFORMATION: FEVER (9 WEEKS TO 74 YEARS) BLOOD-STREAKED | [facility] | | SPUTUM. COMPARISON: Radiograph 09/14/2015. PET/CT 07/01/2018 | | | with midlumbar O it is FINDINGS: Portable frontal chest | | | radiograph. Tracheostomy tube. Lungs: No focal airspace | | | disease, pleural effusion, or pneumothorax. Minimal | | | atelectasis/scarring at the lung bases. Heart/mediastinum: Cardiac | | | silhouette is of normal size. Central pulmonary vasculature has a | | | normal appearance. Bones: No acute osseous abnormality | | | appreciated. IMPRESSION - No acute disease. Dictated and | | | Signed by: Rodriguez Meek MD Electronically signed: 08/02/2018 | | | 8:37 AM | | + + + + + | Procedure Note | + + | Venkatesh, Rad Results In - 08/02/2018 0840 PDT | | CLINICAL INFORMATION: FEVER (9 WEEKS TO 74 YEARS) | | BLOOD-STREAKED SPUTUM. | | | | COMPARISON: Radiograph 09/14/2015. PET/CT 07/01/2018 with midlumbar O it is | | | | FINDINGS: | | Portable frontal chest radiograph. | | | | Tracheostomy tube. | | | | Lungs: No focal airspace disease, pleural effusion, or pneumothorax. Minimal | | atelectasis/scarring at the lung bases. | | | | Heart/mediastinum: Cardiac silhouette is of normal size. Central pulmonary | | vasculature has a normal appearance. | | | | Bones: No acute osseous abnormality appreciated. | | | | IMPRESSION - No acute disease. | | | | Dictated and Signed by: Rodriguez Meek MD | | Electronically signed: 08/02/2018 8:37 AM | + + + +---------+ + + | Performing | Address | City/State/Zipcode | Phone Number | | Organization | | | | + +---------+ + + | [facility] | | | | + +---------+ + + Creatinine (07/16/2018 1052) + + + + + | Component | Value | Ref Range | Performed At | + + + + + | Creatinine, | 0.93 | 0.60 - 1.30 mg/dL | [facility] | | Serum/Plasma | | | [facility] | | | | | CENTER - | | | | | LABORATORY | + + + + + | eGFR if not | >60Comment: GLOMERULAR | >=60 mL/min/1.73m2 | [facility] | | [place] | FILTRATION | | [facility] | | | RATE,ESTIMATED mL/min | | CENTER - | | | /1.53f2Hkzy than 60 | | LABORATORY | | | Chronic kidney | | | | | disease,if found over a | | | | | 3-month period.Less than | | | | | 15 Kidney | | | | | failureFor | | | | | Americans,multiply the | | | | | calculated GFR by 1.21. | | | | | | | | + + + + + + + | Specimen | + + | Blood | + + + + + + + | Performing | Address | City/State/Zipcode | Phone Number | | Organization | | | | + + + + + | [facility] | [address] | [place] | [phone] | | [facility] | | [address] | | | - LABORATORY | | | | + + + + + | [facility] | [address] | [place], [place] | | | [facility] | | [address] | | | - LABORATORY | | | | + + + + + PET CT Skull Base To Mid Thigh (07/01/2018 3083) + + -----+ | Narrative | Performed At | + + -----+ | PET CT SKULL | [facility] | | BASE TO MID THIGH 07/01/2018 11:07 AM HISTORY: Larynx cancer staging. | | | COMPARISON: CT treatment planning 07/01/2018. PROTOCOL: The patient was | | | initially injected with 17.78 mCi FDG F-18. After aone-hour delay, | | | whole body PET images were acquired. Low dose nondiagnostic CTimages | | | were obtained for attenuation correction and fusion. The | | | patient'sfasting blood glucose level at the time of injection was 100 | | | mg/dL. 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 | | | Diffuse increased uptake is observed of the leftvocal cord with | | | maximum SUV of 7.4 that could be related to motion. A 5 mmposterior | | | calcification is noted in the left vocal cord. Hypermetabolic right | | | level 2 lymph nodes are observed measuring 6 mm short axiswith maximum | | | SUV of 2.84 (image 59), 8 mm with maximum SUV of 4.18 (image 63),and | | | 7 mm with maximum SUV of 4.15 (image 66). There is physiologic | | | activity in the brain. A tracheostomy tube is present. Moderate | | | emphysema are present of the bilateral lungs. Physiologic uptake | | | isnoted of the heart. There are no acute findings of the abdomen. | | | Physiologic uptake are visualized ofthe liver, spleen, kidneys, and | | | bowel. There are no acute findings within the pelvis. Physiologic | | | excretion is in thebladder. Body wall soft tissue structures are | | | unremarkable. No bone lesions are seen. IMPRESSION -Large soft tissue | | | mass involving right vocal cord measuring 2.3 cm that ishypermetabolic | | | with metastatic right level 2 lymph nodes. Diffuse increased uptake | | | involving left vocal cord with maximum SUV of 7.4 thatcould be related | | | to motion, although tumor extension cannot entirely beexcluded. | | | Dictated and Signed by: Zach Denton MD Electronically signed: | | | 07/02/2018 12:11 PM | | | | | |There are no acute findings within the pelvis. Physiologic excretion is in the | | |bladder. | | | | | |Body wall soft tissue structures are unremarkable. No bone lesions are seen. | | | | | |IMPRESSION - | | |Large soft tissue mass involving right vocal cord measuring 2.3 cm that is | | |hypermetabolic with metastatic right level 2 lymph nodes. | | | | | |Diffuse increased uptake involving left vocal cord with maximum SUV of 7.4 that | | |could be related to motion, although tumor extension cannot entirely be | | |excluded. | | | | | |Dictated and Signed by: Zach Denton MD | | | Electronically signed: 07/02/2018 12:11 PM | | | | | + + -----+ + + | Procedure Note | + + | Venkatesh, Rad Results In - 07/02/[address] SKULL BASE TO MID THIGH 07/01/2018 | | 11:07 AMHISTORY: Larynx cancer staging.COMPARISON: CT treatment planning | | 07/01/2018.PROTOCOL: The patient was initially injected with 17.78 mCi FDG F-18. After | | aone-hour delay, whole body PET images were acquired. Low dose nondiagnostic CTimages | | were obtained for attenuation correction and fusion. 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 Diffuse increased uptake | | is observed of the leftvocal cord with maximum SUV of 7.4 that could be related to | | motion. A 5 mmposterior calcification is noted in the left vocal cord.Hypermetabolic | | right level 2 lymph nodes are observed measuring 6 mm short axiswith maximum SUV of 2.84 | | (image 59), 8 mm with maximum SUV of 4.18 (image 63),and 7 mm with maximum SUV of 4.15 | | (image 66).There is physiologic activity in the brain. A tracheostomy tube is | | present.Moderate emphysema are present of the bilateral lungs. Physiologic uptake | | isnoted of the heart.There are no acute findings of the abdomen. Physiologic uptake are | | visualized ofthe liver, spleen, kidneys, and bowel.There are no acute findings within | | the pelvis. Physiologic excretion is in thebladder.Body wall soft tissue structures are | | unremarkable. No bone lesions are seen.IMPRESSION -Large soft tissue mass involving | | right vocal cord measuring 2.3 cm that ishypermetabolic with metastatic right level 2 | | lymph nodes.Diffuse increased uptake involving left vocal cord with maximum SUV of 7.4 | | thatcould be related to motion, although tumor extension cannot entirely | | beexcluded.Dictated and Signed by: Zach Denton MD Electronically signed: 07/02/2018 | | 12:11 PM | | | |Moderate emphysema are present of the bilateral lungs. Physiologic uptake is | |noted of the heart. | | | |There are no acute findings of the abdomen. Physiologic uptake are visualized of | |the liver, spleen, kidneys, and bowel. | | | |There are no acute findings within the pelvis. Physiologic excretion is in the | |bladder. | | | |Body wall soft tissue structures are unremarkable. No bone lesions are seen. | | | |IMPRESSION - | |Large soft tissue mass involving right vocal cord measuring 2.3 cm that is | |hypermetabolic with metastatic right level 2 lymph nodes. | | | |Diffuse increased uptake involving left vocal cord with maximum SUV of 7.4 that | |could be related to motion, although tumor extension cannot entirely be | |excluded. | | | |Dictated and Signed by: Zach Denton MD | | Electronically signed: 07/02/2018 12:11 PM | + + + +---------+ + + | Performing | Address | City/State/Zipcode | Phone Number | | Organization | | | | + +---------+ + + | [facility] | | | | + +---------+ + + CT Treatment Plan Complex (07/01/2018 0954) + + + | Narrative | Performed At | + + + | This exam has been auto-finalized and the interpretation may exist | [facility] | | elsewhere in the chart. | | + + + + +---------+ + + | Performing | Address | City/State/Zipcode | Phone Number | | Organization | | | | + +---------+ + + | [facility] | | | | + +---------+ + + LABS - EXTERNAL SCAN (06/16/2018) + + + | Narrative | Performed At | + + + | Ordered by an | | | unspecified provider. | | + + + CBC no Differential (06/06/2018 0606) + +-------+ + + | Component | Value | Ref Range | Performed At | + +-------+ + + | WBC | 6.8 | 4.0 - 11.0 K/uL | [facility] | | | | | [facility] | | | | | CENTER - | | | | | LABORATORY | + +-------+ + + | RBC | 4.19 | 3.70 - 5.20 M/uL | [facility] | | | | | [facility] | | | | | CENTER - | | | | | LABORATORY | + +-------+ + + | Hgb | 13.3 | 11.5 - 16.0 g/dL | [facility] | | | | | [facility] | | | | | CENTER - | | | | | LABORATORY | + +-------+ + + | Hct | 38.5 | 34.0 - 47.0 % | [facility] | | | | | [facility] | | | | | CENTER - | | | | | LABORATORY | + +-------+ + + | MCV | 92.0 | 83.0 - 101.0 fL | [facility] | | | | | [facility] | | | | | CENTER - | | | | | LABORATORY | + +-------+ + + | MCH | 31.8 | 28.0 - 35.0 pg | [facility] | | | | | [facility] | | | | | CENTER - | | | | | LABORATORY | + +-------+ + + | MCHC | 34.6 | 32.0 - 36.0 g/dL | [facility] | | | | | [facility] | | | | | CENTER - | | | | | LABORATORY | + +-------+ + + | RDW-CV | 13.0 | <15.0 % | [facility] | | | | | [facility] | | | | | CENTER - | | | | | LABORATORY | + +-------+ + + | Platelet Count | 283 | 140 - 440 K/uL | [facility] | | | | | [facility] | | | | | CENTER - | | | | | LABORATORY | + +-------+ + + | MPV | 8.0 | fL | [facility] | | | | | [facility] | | | | | CENTER - | | | | | LABORATORY | + +-------+ + + + + | Specimen | + + | Blood | + + + + + + + | Performing | Address | City/State/Zipcode | Phone Number | | Organization | | | | + + + + + | [facility] | [address] | [place] | [phone] | | [facility] | | [address] | | | - LABORATORY | | | | + + + + + | [facility] | [address] | [place] | | | [facility] | | [address] | | | - LABORATORY | | | | + + + + + Phosphorus (06/06/2018605) + +-------+ + + | Component | Value | Ref Range | Performed At | + +-------+ + + | Phosphorus | 3.5 | 2.5 - 4.6 mg/dL | [facility] | | | | | [facility] | | | | | CENTER - | | | | | LABORATORY | + +-------+ + + + + | Specimen | + + | Blood | + + + + + + + | Performing | Address | City/State/Zipcode | Phone Number | | Organization | | | | + + + + + | [facility] | [address] | [place] | [phone] | | [facility] | | [address] | | | - LABORATORY | | | | + + + + + | [facility] | [address] | [place], [place] | | | [facility] | | [address] | | | - LABORATORY | | | | + + + + + Calcium, Ionized (06/06/2018605) + + + + + | Component | Value | Ref Range | Performed At | + + + + + | Ionized Calcium | 5.68 (H) | 4.48 - 5.28 mg/dL | [facility] | | | | | [facility] | | | | | CENTER - | | | | | LABORATORY | + + + + + + + | Specimen | + + | Blood | + + + + + + + | Performing | Address | City/State/Zipcode | Phone Number | | Organization | | | | + + + + + | [facility] | [address] | [place], [place] | [phone] | | [facility] | | [address] | | | - LABORATORY | | | | + + + + + | [facility] | [address] | [place], [place] | | | [facility] | | [address] | | | - LABORATORY | | | | + + + + + Basic Metabolic Panel (06/06/2018605) + + + + + | Component | Value | Ref Range | Performed At | + + + + + | NA | 137 | 136 - 149 mmol/L | [facility] | | | | | [facility] | | | | | CENTER - | | | | | LABORATORY | + + + + + | K | 3.9 | 3.5 - 5.1 mmol/L | [facility] | | | | | [facility] | | | | | CENTER - | | | | | LABORATORY | + + + + + | CL | 101 | 98 - 109 mmol/L | [facility] | | | | | [facility] | | | | | CENTER - | | | | | LABORATORY | + + + + + | CO2 | 29 | 24 - 31 mmol/L | [facility] | | | | | [facility] | | | | | CENTER - | | | | | LABORATORY | + + + + + | ANION GAP | 7 | 3 - 16 mmol/L | [facility] | | | | | [facility] | | | | | CENTER - | | | | | LABORATORY | + + + + + | GLUCOSE | 101 | 70 - 109 mg/dL | [facility] | | | | | [facility] | | | | | CENTER - | | | | | LABORATORY | + + + + + | BUN | 11 | 7 - 18 mg/dL | [facility] | | | | | [facility] | | | | | CENTER - | | | | | LABORATORY | + + + + + | Creatinine, | 0.60 | 0.60 - 1.30 mg/dL | [facility] | | Serum/Plasma | | | [facility] | | | | | CENTER - | | | | | LABORATORY | + + + + + | eGFR if not | >60Comment: GLOMERULAR | >=60 mL/min/1.73m2 | [facility] | | [place] | FILTRATION | | [facility] | | | RATE,ESTIMATED mL/min | | CENTER - | | | /1.36v2Nidj than 60 | | LABORATORY | | | Chronic kidney | | | | | disease,if found over a | | | | | 3-month period.Less than | | | | | 15 Kidney | | | | | failureFor | | | | | Americans,multiply the | | | | | calculated GFR by 1.21. | | | | | | | | + + + + + | CALCIUM | 8.9 | 8.3 - 10.5 mg/dL | [facility] | | | | | [facility] | | | | | CENTER - | | | | | LABORATORY | + + + + + | BUN/CREA | 18.3 | | [facility] | | | | | [facility] | | | | | CENTER - | | | | | LABORATORY | + + + + + + + | Specimen | + + | Blood | + + + + + + + | Performing | Address | City/State/Zipcode | Phone Number | | Organization | | | | + + + + + | [facility] | [address] | [place] | [phone] | | [facility] | | [address] | | | - LABORATORY | | | | + + + + + | [facility] | [address] | [place] | | | [facility] | | [address] | | | - LABORATORY | | | | + + + + + Culture, MRSA (06/01/2018 1659) + + + + + | Component | Value | Ref Range | Performed At | + + + + + | Culture | Negative for MRSA by | | [facility] | | | chromogenic agar method | | [facility] | | | | | CENTER - | | | | | LABORATORY | + + + + + + + | Specimen | + + | Tissue - Nares | + + + + + + + | Performing | Address | City/State/Zipcode | Phone Number | | Organization | | | | + + + + + | [facility] | [address] | [place], [place] | [phone] | | [facility] | | [address] | | | - LABORATORY | | | | + + + + + | [facility] | [address] | [place], [place] | | | [facility] | | [address] | | | - LABORATORY | | | | + + + + + PATHOLOGY - EXTERNAL SCAN (06/01/2018) + + + | Narrative | Performed At | + + + | Ordered by an | | | unspecified provider. | | + + + from Last 3 Months Insurance + +--------+ +--------+ +---------+ | Payer | Benefi | Subscriber | Type | Phone | Address | | | t Plan | ID | | | | | | / | | | | | | | Group | | | | | + +--------+ +--------+ +---------+ | MEDICARE | MEDICA | [id number] | Medica | [phone] | | | RE | | re | [phone] | | | | PART A | | | | | | | AND B | | | | | + +--------+ +--------+ +---------+ + +--------+ +--------+ + + | Guarantor Name | Accoun | Relation to | Date | Phone | Billing Address | | | t Type | Patient | of | | | | | | | | | | + +--------+ +--------+ + + | CRYSTAL SADLER | Person | Self [birth year] Home: | [address] | | [place] | al/[place] | | 1955 | [phone] [place] [address] | | | emerita | | | [phone] | | + +--------+ +--------+ + +
--- OUTSIDE RECORDS SUMMARY | 2018-08-25 20:40 | XMS | Encounter Summary ---
Demographics + + + | Address | [address] | | | [place] [address] | + + + | Home Phone | | + + + | Preferred Language | Unknown | + + + | Marital Status | Single | + + + | Pentecostal Affiliation | Unknown | + + + | Race | Unknown | + + + | Ethnic Group | Unknown | + + + Author + + + | Author | [facility] | | | and [place] | + + + | Organization | [facility] | | | and [place] | [...] Team Providers + +------+ + | Care Head Tennis Coach Name | Role | Phone | + +------+ + | Yeyo Anderson DO | PCP | | + +------+ + Reason for Visit Service/Procedure (Routine) + +--------+ + + + + | Status | Reason | Specialty | Diagnoses / | Referred By | Referred To | | | | | Procedures | Contact | Contact | + +--------+ + + + + | Authorized | | Infusion | Diagnoses | William, | [facility] | | | | Therapy | Malignant | Sterling A, MD | Infusion [address] | | | | | neoplasm of | [address] | | | | | larynx, | [address] | [place], | | | | | unspecified | [place], | [place] [address] | | | | | (HCC) | [place] | Phone: | | | | | Procedures | [address] | [phone] | | | | | [place] IV | Phone: | Fax: | | | | | INFUSION, | [phone] | [phone] | | | | | HYDRATION, | Fax: | | | | | | 31-60 MIN | [phone] | | | | | | [place] IV | | | | | | | INFUSION, | | | | | | | HYDRATION, | | | | | | | EA ADD HOUR | | | | | | | [place] | | | | | | | ONDANSETRON | | | | | | | ORAL [place] | | | | | | | ORAL | | | | | | | DEXAMETHASON | | | | | | | E, .25 MG | | | | | | | [place] | | | | | | | CHEMOTHERAPY | | | | | | | DRUG W[place] | | | | | | | CISPLATIN 10 | | | | | | | MG | | | | | | | INJECTION | | | | | | | [place] ADRENALIN | | | | | | | EPINEPHRINE | | | | | | | INJECT, .1 | | | | | | | MG [place] | | | | | | | DIPHENHYDRAM | | | | | | | INE HCL | | | | | | | INJECTIO, 50 | | | | | | | MG [place] | | | | | | | METHYLPREDNI | | | | | | | SOLONE | | | | | | | INJECTION, | | | | | | | 125 MG [place] | | | | | | | ALBUTEROL | | | | | | | COMP CON, 1 | | | | | | | MG [place] | | | | | | | ALBUTEROL | | | | | | | NON-COMP | | | | | | | CON, 1 MG | | | | | | | [place] | | | | | | | INJECTION, | | | | | | | FAMOTIDINE, | | | | | | | 20 MG [place] | | | | | | | NORMAL | | | | | | | SALINE | | | | | | | SOLUTION | | | | | | | INFUS, 500 | | | | | | | ML [place] | | | | | | | NORMAL | | | | | | | SALINE | | | | | | | SOLUTION | | | | | | | INFUS, 250 | | | | | | | ML [place] | | | | | | | STERILE | | | | | | | WATER/SALINE | | | | | | | , 10 ML [place] | | | | | | | CHEMOTHER, | | | | | | | IV PUSH,EA | | | | | | | ADD DRUG [place] | | | | | | | CHEMOTHER, | | | | | | | IV INFUSION, | | | | | | | 1 HR [place] | | | | | | | CHEMOTHER, | | | | | | | IV INFUSION, | | | | | | | EA HR [place] | | | | | | | CHEMOTHER,NO | | | | | | | N-HORMONE | | | | | | | ANTI-NEOPL, | | | | | | | SUB-Q/IM W[place] | | | | | | | CHEMOTHER | | | | | | | HORMON | | | | | | | ANTINEOPL | | | | | | | SUB-Q/IM | | | + +--------+ + + + + Encounter Details +--------+ + + + + | Date | Type | Department | Care Team | Description | +--------+ + + + + | 08/25/ | Hospital | [facility] | Sterling Thomas, | 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 | | | | INFUSION [address] | [place] | (HCC) (Primary Dx) | | | | [place], | [address] | | | | | [place] [address] | [phone] | | | | | [phone] | | | +--------+ + + + + Social History + + + [...] on file | | + + + as of this encounter Plan of Treatment +--------+ + + + + | Date | Type | Specialty | Care Team | Description | +--------+ + + + + | 08/26/ | Appointment | Radiation Oncology | Estefanía Hairston | | | 2017 | | | MD Alana [address] | | | | | | [place] | | | | | | [id number] | | | | | | | | +--------+ + + + + | 09/15/ | Appointment | Oncology | William Sterling Masters, | | | 2017 | | | MD [address] | | | | | | [place] | | | | | | [phone] | | | | | | [phone] | | | | | | | | +--------+ + + + + | 09/15/ | Appointment | Nutrition | Joselin Falcon, | | | 2017 | | | RDN | | +--------+ + + + + as of this encounter Visit Diagnoses + + | Diagnosis | + + | 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
--- OUTSIDE RECORDS SUMMARY | 2018-08-25 20:43 | XMS | Encounter Summary ---
Demographics + + + | Address | [address] | | | [place] [address] | + + + | Home Phone | | + + + | Preferred Language | Unknown | + + + | Marital Status | Single | + + + | Tenriism Affiliation | Unknown | + + + | Race | Unknown | + + + | Ethnic Group | Unknown | + + + Author + + + | Author | [facility] | | | and [place] | + + + | Organization | [facility] | | | and [place] | + + + | Address | Unknown | + + + | Phone | Unavailable | + + + Support + + +---------+ + | Name | Relationship | Address | Phone | + + +---------+ + | Sebastian Vivas | ECON | Unknown | | + + +---------+ + | Rafia Stephens ECON | Unknown | | + + +---------+ + Care Team Providers + +------+ + | Care Care Partner Name | Role | Phone | + +------+ + | Yeyo Anderson DO | PCP | | + +------+ + Encounter Details +--------+ + + + + | Date | Type | Department | Care Team | Description | +--------+ + + + + | 08/25/ | Hospital | [facility] | Sterling Thomas, | 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 | MD Guero SALGADO | carcinoma of larynx | | | | [facility] [address] | [place] | (HCC) (Primary Dx); | | | | [address] | [address] | Chemotherapy-induced | | | | [place] [address] | [phone] | thrombocytopenia; | | | | [phone] | | Elevated LFTs | +--------+ + + + + Social [...] + + + as of this encounter Last Filed Vital Signs + + + [...] + + + + | Height | - | - | + + + + | Body Mass Index | 27.33 | 08/25/2018899 PST | + + + + in this encounter Progress Notes Sterling Thomas MD - 08/25/201845 PSTFormatting of this note may be different from the original. Hematology-Oncology Progress Note [facility] Pt. Name/Age/: Crystal Sadler 62 y.o. 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 Assessment and plan: Patient is experiencing the typical, cumulative side effects of the combined chemotherapy a nd radiation. Platelets are quite low today, thus not appropriate to continue with chemothe rapy. Given that radiation in this next Thursday, no further chemotherapy recommended. We did discuss the typical time course of recovery from this kind of treatment, recommended recheck with lab in about 3 weeks. She does anticipate re-endoscopy with Dr. Hines in a bout 3 weeks, told her that follow-up imaging will likely be in 2 3 months, organized by [facility]. 1. Hold the final cycle of cisplatin. 2. Continue daily radiation. 3. Recheck in approximately 3 weeks with lab. Subjective: The patient chart and medications were reviewed in detail and the patient was seen and exam ined. Crystal Sadler is a 62 y.o. female with laryngeal cancer here for treatment. Patient's most recent chemotherapy infusions are as follows: Chemotherapy 07/13/2018 08/10/2018 08/18/2018 Day, Cycle Day 1, Cycle 1 Day 1, Week 1 Day 1, Week 2 CISplatin (PLATINOL) IV 100 mg/m2 40 mg/m2 40 mg/m2 Patient is having profound odynophagia, basically only able to swallow water which hurts de spite magic mouthwash. Has lost further weight but no orthostatic symptoms, no fevers, no p aresthesias. Fairly short of breath as well. PMH: Past Medical History: Diagnosis Date Arthritis Cancer (HCC) CHF (congestive heart failure) (HCC) COPD (chronic obstructive pulmonary disease) (HCC) Diabetes mellitus (HCC) Encounter for blood transfusion Immune deficiency disorder (HCC) Seizures (HCC) Squamous cell carcinoma of larynx (HCC) Social & Family Hx: Social History Social History Marital status: Single Spouse name: N/A Number of children: N/A Years of education: N/A Social History Main Topics Smoking status: Current Every Day Smoker Packs/day: 0.50 Years: 45.00 Types: Cigarettes Smokeless tobacco: Never Used Comment: quit about 3 weeks ago, but has had a few cigarettes per day lately. Alcohol use No Comment: quit in 1992 Drug use: No Comment: not currently, quit 1992 and again two years ago Sexual activity: Yes Partners: Male control/ protection: No Other Topics Concern Not on file Social History Narrative No narrative on file Family History Problem Relation Age of Onset Heart failure Mother Heart attack Father Review of Systems: REVIEW OF SYSTEMS Constitutional: Reports energy level is very low, worse for last 2 days. Reports nausea, st ates they help, but if she eats or drinks anything she is nauseated again. Down almost 3 kg since 08/19/18. Cant eat anything for the last few days. Appetite low. Denies high fevers, shaking chills, anorexia, vomiting, or night sweats. Ear, Nose, Mouth, Throat: Reports one sore in mouth. Reports dysphagia, worse for the last 2 days, states it is hard to swallow even water right. Denies tinnitus. Cardiovascular: Reports shortness of breath, usually when she gets upset. Denies chest pain , palpitations or orthopnea. Respiratory: Cough continues, with green sputum production, sometimes brown. Denies hemopt ysis. Gastrointestinal: Reports constipation, states she is able to go, but takes time. Denies ab dominal pain, diarrhea, melena, or bright red blood per rectum. Genitourinary: Denies hematuria or dysuria. Musculoskeletal: Denies joint pain or tenderness. Neurologic: Denies headache. Reports blurry vision continues. Reports numbness in both fee t at this time. Endocrine: Reports mild swelling in feet. Denies heat/cold intolerance. Hematologic: Denies spontaneous bruising or bleeding. Integumentary: Reports skin on neck is raw and red, states it feels like it is on fire. Den ies wounds or other skin concerns. Pain: 8/10 throat pain. Note: Here for follow up, labs and 5 hour treatment. My chart: Active Medications: Current Outpatient Prescriptions Medication Sig albuterol 2.5 mg/3 mL nebulizer solution Take 3 mLs by nebulization every 4 hours as ne eded for Wheezing or Shortness of Breath. (Patient not taking: Reported on 08/18/2018) Cholecalciferol (VITAMIN D3 PO) Take by mouth. diazePAM (VALIUM) 5 mg tablet Take 1 tablet by mouth nightly as needed. rfvdkwzebpOKSGE-gttletncr-vmuddiiy & magnesium hydroxide-simethicone (MAGIC MOUTHWASH) Take 5 mLs by mouth every 4 hours as needed for Pain (Can swish and swallow, or swish and sp it). (RECIPE = 1:1:1 mixture of Maalox, diphenhydrAMINE, viscous lidocaine) Humidifiers (COOL MIST HUMIDIFIER 1 GALLON) MISC 1 applicator by Does not apply route a s needed. HYDROcodone-acetaminophen (NORCO) 5-325 mg per tablet Take 1-2 tablets by mouth every 4 hours as needed. Misc. Devices (COMMODE BEDSIDE) MISC 1 Application by Does not apply route as needed. OLANZapine (ZYPREXA) 5 mg tablet Take 1 tablet by mouth nightly. starting Day 1 of chem otherapy. ondansetron (ZOFRAN) 8 MG tablet Take 1 tablet by mouth every 8 hours as needed for Horacio sea. May take twice daily for two days after chemo; or one tab every eight hours as needed f or nausea No current facility-administered medications for this encounter. Allergies: Allergies Allergen Reactions Codeine Shortness Of Breath Penicillins Other (See Comments) unknown Vitals: Temp: 37.3 C (99.2 F) BP: 121/69 Pulse: 72 Resp: 20 SpO2: 98 % on Temp :Temp Av.3 C (99.2 F) Min: 37.3 C (99.2 F) Max: 37.3 C (99.2 F) No intake or output data in the 24 hours ending 08/25/18 0915 Wt. Current: Weight: 65.6 kg (144 lb 10 oz) Physical Exam: Exam: ECOG Performance Status: 2 3 General: The patient is alert and oriented. In obvious discomfort, very hoarse.. HEENT: PERRL, Oral mucosa dry. Non-icteric. Skin: No rashes, bruising, or petechiae. Radiation dermatitis with some peeling over her neck. Psychiatric: Distressed mood and affect. Appropriate. Diagnostic studies: Available data and image reports were reviewed personally. See reports. Significant resul ts and findings are addressed here or in the Assessment and Plan. Recent Labs Lab 08/25/18 0744 WBC 4.0 HGB 13.1 HCT 38.3 PLT 33* Recent Labs Lab 08/25/18 0744 NA 133* K 4.7 CL 101 CO2 23* BUN 12 CREA 0.63 GLU 358* MG 1.8 CALCIUM 9.1 BILITOT 0.4 AST 71* ALT 143* ALKPHOS 78 ALBUMIN 3.1* Electronically signed by: Sterling Thomas MD 08/25/2018 9:15 CC: Yeyo Anderson DO Total time in face to face discussion with the patient and family was 25 minutes; more than 50% of the time was spent in counseling and coordination of care. Portions of this chart may have been created with [employer]clusively[employer]in voice recognition software. Occasi onal wrong-word or sound-alike substitutions may have occurred due to the inherent mcnally itations of voice recognition software. Please read the chart carefully and recognize, using context, where these substitutions have occurred.in this encounter Plan of Treatment +--------+ + + + + | Date | Type | Specialty | Care Team | Description | +--------+ + + + + | 08/26/ | Appointment | Radiation Oncology | Estefanía Hairston | | | 2017 | | | MD [address] | | | | | | [place], [place] | | | | | | [phone] | | | | | | | | +--------+ + + + + | 09/15/ | Appointment | Oncology | Sterling Thomas, | | | 2017 | | | [address] | | | | | | [place] | | | | | | [address] | | | | | | [phone] | | | | | | | | +--------+ + + + + | 09/15/ | Appointment | Nutrition | Joselin Falcon, | | | 2017 | | | RDN | | +--------+ + + + + + +--------+ + + | Name | Priori | Associated Diagnoses | Order Schedule | | | ty | | | + +--------+ + + | CBC with Differential | STAT | Squamous cell | Expected: 09/15/2018 | | | | carcinoma of larynx | (Approximate), | | | | (HCC) | Expires: 08/26/2019 | + +--------+ + + | Comprehensive Metabolic Panel | STAT | Squamous cell | Expected: 09/15/2018 | | | | carcinoma of larynx | (Approximate), | | | | (HCC) | Expires: 08/25/2019 | + +--------+ + + as of this encounter Procedures + +--------+ + + + | [...] in the | | | | | ([facility]) | results section. | + +--------+ + + + | MAGNESIUM | STAT | 08/25/2018 | Squamous cell | Results for this | | | | 0744 PST | carcinoma of larynx | procedure are in the | | | | | ([facility]) | results section. | + +--------+ + + + | COMPREHENSIVE | STAT | 08/25/2018 | Squamous cell | Results for this | | METABOLIC PANEL | | 0744 PST | carcinoma of larynx | procedure are in the | | | | | ([facility]) | results section. | + +--------+ + + + in this encounter Results Magnesium (08/25/2018743) + +-------+ + + | Component | Value | Ref Range | Performed At | + +-------+ + + | Magnesium | 1.8 | 1.8 - 2.5 mg/dL | [facility] | | | | [facility] | | | | | [facility] - [...] | [address] | [place] | [phone] | | [facility] | | [address] | | | - LABORATORY | | | | + + + + + | [facility] | [address] | [place] | | | [facility] | | [address] | | | - LABORATORY | | | | + + + + + CBC with Differential (08/25/201844) + + + + + | Component | Value | Ref Range | Performed At | + + + + + | WBC | 4.0 | 4.0 - 11.0 K/uL | [facility] | | | | [facility] | | | | | [facility] - | | | | | LABORATORY | + + + + + | RBC | 4.27 | 3.70 - 5.20 M/uL | [facility] | | | | | [facility] | | | | | [facility] - | | | | | LABORATORY | + + + + + | Hgb | 13.1 | 11.5 - 16.0 g/dL | [facility] | | | | [facility] | | | | | [facility] - | | | | | LABORATORY | + + + + + | Hct | 38.3 | 34.0 - 47.0 % | [facility] | | | | | [facility] | | | | | [facility] - | | | | | LABORATORY | + + + + + | MCV | 89.7 | 83.0 - 101.0 fL | [facility] | | | | | [facility] | | | | | [facility] - | | | | | LABORATORY | + + + + + | MCH | 30.7 | 28.0 - 35.0 pg | [facility] | | | | | [facility] | | | | | [facility] - | | | | | LABORATORY | + + + + + | MCHC | 34.2 | 32.0 - 36.0 g/dL | [facility] | | | | | [facility] | | | | | [facility] - | | | | | LABORATORY | + + + + + | RDW-CV | 13.5 | <15.0 % | [facility] | | | | | [facility] | | | | | [facility] - | | | | | LABORATORY | + + + + + | RDW-SD | 43.8 | 35.1 - 46.3 fL | [facility] | | | | | [facility] | | | | | [facility] - | | | | | LABORATORY | + + + + + | Platelet Count | 33 (L) | 140 - 440 K/uL | [facility] | | | | | [facility] | | | | | [facility] - | | | | | LABORATORY | + + + + + | MPV | 11.9 | 6.5 - 12.4 fL | [facility] | | | | | [facility] | | | | | [facility] - | | | | | LABORATORY | + + + + + | % Neutrophils | 54.5 | 45.0 - 82.0 % | [facility] | | | | | [facility] | | | | | [facility] - | | | | | LABORATORY | + + + + + | % Lymphocytes | 27.9 | 20.0 - 45.0 % | [facility] | | | | | [facility] | | | | | [facility] - | | | | | LABORATORY | + + + + + | % Monocytes | 13.3 (H) | 4.0 - 12.0 % | [facility] | | | | | [facility] | | | | | C[facility] - | | | | | LABORATORY | + + + + + | % Eosinophils | 3.5 | 0.0 - 5.0 % | [facility] | | | | | [facility] | | | | | [facility] - | | | | | LABORATORY | + + + + + | % Basophils | 0.5 | 0.0 - 1.0 % | [facility] | | | | | [facility] | | | | | [facility] - | | | | | LABORATORY | + + + + + | % Immature | 0.3 | 0.0 - 0.4 % | [facility] | | granulocytes | | | [facility] | | | | | CENTER - | | | | | LABORATORY | + + + + + | Absolute Neutrophils | 2.17 | 1.80 - 8.50 K/uL | [facility] | | | | | [facility] | | | | | [facility] - | | | | | LABORATORY | + + + + + | Absolute Lymphocytes | 1.11 | 0.60 - 3.20 K/uL | [facility] | | | | | [facility] | | | | | [facility] - | | | | | LABORATORY | + + + + + | Absolute Monocytes | 0.53 | 0.00 - 1.00 K/uL | [facility] | | | | | [facility] | | | | | [facility] - | | | | | LABORATORY | + + + + + | Absolute Eosinophils | 0.14 | 0.00 - 0.40 K/uL | [facility] | | | | | [facility] | | | | | [facility] - | | | | | LABORATORY | + + + + + | Absolute Basophils | 0.02 | 0.00 - 0.10 K/uL | [facility] | | | | | [facility] | | | | | [facility] - | | | | | LABORATORY | + + + + + | Absolute Imm. | 0.01 | 0.00 - 0.03 K/uL | [facility] | | Granulocytes | | | [facility] | | | | | CENTER - | | | | | LABORATORY | + + + + + | nRBC | 0 | 0 - 2 per 100 WBC's | [facility] | | | | | [facility] | | | | | [facility] - | | | | | LABORATORY | + + + + + | NRBC ABS | 0.00 | 0.00 - 0.01 K/uL | [facility] | | | | | [facility] | | | | | CENTER [...] + | [facility] | [address] | [place] | [phone] | | [facility] | | [address] | | | - LABORATORY | | | | + + + + + | [facility] | [address] | [place] | | | [facility] | | [address] | | | - LABORATORY | | | | + + + + + Comprehensive Metabolic Panel (08/25/201844) + + + + + | Component | Value | Ref Range | Performed At | + + + + + | NA | 133 (L) | 136 - 149 mmol/L | [facility] | | | | | [facility] | | | | | [facility] - | | | | | LABORATORY | + + + + + | K | 4.7 | 3.5 - 5.1 mmol/L | [facility] | | | | | [facility] | | | | | CENTER - | | | | | LABORATORY | + + + + + | CL | 101 | 98 - 109 mmol/L | [facility] | | | | | [facility] | | | | | CENTER - | | | | | LABORATORY | + + + + + | CO2 | 23 (L) | 24 - 31 mmol/L | [facility] | | | | | [facility] | | | | | CENTER - | | | | | LABORATORY | + + + + + | ANION GAP | 9 | 3 - 16 mmol/L | [facility] | | | | | [facility] | | | | | CENTER - | | | | | LABORATORY | + + + + + | GLUCOSE | 358 (H) | 70 - 109 mg/dL | [facility] | | | | | [facility] | | | | | CENTER - | | | | | LABORATORY | + + + + + | BUN | 12 | 7 - 18 mg/dL | [facility] | | | | | [facility] | | | | | CENTER - | | | | | LABORATORY | + + + + + | Creatinine, | 0.63 | 0.60 - 1.30 mg/dL | [facility] | | Serum/Plasma | | | [facility] | | | | | CENTER - | | | | | LABORATORY | + + + + + | eGFR if not | >60Comment: GLOMERULAR | >=60 mL/min/1.73m2 | [facility] | | [place] | FILTRATION | | [facility] | | | RATE,ESTIMATED mL/min | | CENTER - | | | /1.97a0Juug than 60 | | LABORATORY | | [...] 9.1 | 8.3 - 10.5 mg/dL | [facility] | | | | | [facility] | | | | | CENTER - | | | | | LABORATORY | + + + + + | ALBUMIN | 3.1 (L) | 3.2 - 5.0 g/dL | [facility] | | | | | [facility] | | | | | CENTER - | | | | | LABORATORY | + + + + + | Bilirubin Total | 0.4Comment: This is an | 0.1 - 1.5 mg/dL | [facility] | | | appended report. These | | [facility] | | | results have been | | CENTER - | | | appended to a previously | | LABORATORY | | | preliminary verified | | | | | report. | | | + + + + + | Total protein | 6.5 | 6.0 - 7.8 g/dL | [facility] | | | | | [facility] | | | | | CENTER - | | | | | LABORATORY | + + + + + | AST | 71 (H)Comment: This is | 10 - 42 U/L | [facility] | | | an appended report. | | [facility] | | | These results have [...] | | an appended report. | | [facility] | | | These results have [...] | | appended report. These | | [facility] | | | results have been | | CENTER - | | | appended to a previously | | LABORATORY | | | preliminary verified | | | | | report. | | | + + + + + | GLOBULIN | 3.4 | 2.1 - 3.8 g/dL | [facility] | | | | | [facility] | | | | | CENTER - | | | | | LABORATORY | + + + + + | Albumin/Globulin | 0.9 | 0.8 - 2.0 | [facility] | | ratio | | | [facility] | | | | | CENTER - | | | | | LABORATORY | + + + + + | BUN/CREA | 19.0 | | [facility] | | | | | [facility] | | | | | CENTER - [...] | [address] | [place] | [phone] | | [facility] | | [address] | | | - LABORATORY | | | | + + + + + | [facility] | [address] | [place] | | | [facility] | | [address] | | | - LABORATORY | | | | + + + + + in this encounter Visit Diagnoses + + | Diagnosis | + + | Squamous cell carcinoma of larynx (HCC) - Primary | + + | Malignant neoplasm of larynx, unspecified site | + + | Chemotherapy-induced thrombocytopenia | + + | Other secondary thrombocytopenia | + + | Elevated LFTs | + + | Other abnormal blood chemistry | + +"
== END 2018-08-25 22:02 | disposition home or self-care (01) ==
LOC: ED 19:45
DX: G89.3 Neoplasm related pain (acute) (chronic) (principal); D49.0 Neoplasm of unspecified behavior of digestive system; M54.2 Cervicalgia; R11.0 Nausea; R06.00 Dyspnea, unspecified; Z87.891 Personal history of nicotine dependence; Z88.5 Allergy status to narcotic agent; Z79.899 Other long term (current) drug therapy
CPT/HCPCS: 71045; 80053; 85025; 85610; 85730; 96374; 96375; 99283; J1170; J2405

== ENCOUNTER 2020-06-30 15:37 | Emergency (ER) | payer MEDICARE, OTHER ==
[~2020-06-30] VITALS: Ht 154.9 cm; Wt 72.6 kg
[~2020-06-30 15:37] MED LIST changes: +ONDANSETRON HCL8 MG PO; +PREDNISONE10 MG PO; +ZITHROMAX250 MG PO
[2020-06-30] MEDS ORDERED: PREDNISONE20 MG PO (18:47)
[2020-06-30] MEDS ORDERED: ZITHROMAX250 MG PO (18:47)
--- NOTE | 2020-07-01 16:31 | EKG ---
[facility] [address] [place], [place] [address] Signed Normal sinus rhythm Normal ECG When compared with ECG of 30-JUN-2020 15:49, (Unconfirmed) No significant change was found Confirmed by NATHALIA ARRIOLA DO ([id number]) on 07/01/2020 4:30:48 PM Electronically Signed By: NATHALIA ARRIOLA DO 07/01/20 1631 PATIENT NAME: CHRISTINASTASDELBERT MILLS Electrocardiogram DATE OF : 55 PHYSICIAN: NATHALIA ARRIOLA DO REPORT #: [id number] REPORT IS CONFIDENTIAL AND NOT TO BE RELEASED WITHOUT AUTHORIZATION
== END 2020-06-30 19:06 | disposition home or self-care (01) ==
LOC: ED 15:37
DX: J44.1 Chronic obstructive pulmonary disease with (acute) exacerbation (principal); Z87.891 Personal history of nicotine dependence; Z88.5 Allergy status to narcotic agent; Z85.21 Personal history of malignant neoplasm of larynx
CPT/HCPCS: 71045; 80053; 83735; 84484; 85025; 93005; 93010; 94640; 94664; 99285-25; J7512

== ENCOUNTER 2020-09-14 14:53 | Emergency (ER) | payer MEDICARE, OTHER ==
[~2020-09-14] VITALS: Ht 154.9 cm; Wt 74.8 kg
[~2020-09-14 14:53] MED LIST changes: +PREDNISONE20 MG PO
[2020-09-14] MEDS ORDERED: GLUCOPHAGE500 MG PO (18:05)
== END 2020-09-14 18:24 | disposition home or self-care (01) ==
LOC: ED 14:53
DX: E11.65 Type 2 diabetes mellitus with hyperglycemia (principal); J44.9 Chronic obstructive pulmonary disease, unspecified; Z87.891 Personal history of nicotine dependence; Z88.5 Allergy status to narcotic agent
CPT/HCPCS: 80053; 81001; 82010; 82803; 85025; 99284; J7030

== ENCOUNTER 2020-09-19 18:30 | Emergency (ER) | payer MEDICARE, OTHER ==
[~2020-09-19] VITALS: Ht 154.9 cm; Wt 74.8 kg
[~2020-09-19 18:30] MED LIST changes: +GLUCOPHAGE500 MG PO
== END 2020-09-19 20:54 | disposition home or self-care (01) ==
LOC: ED 18:30
DX: R10.32 Left lower quadrant pain (principal); E11.9 Type 2 diabetes mellitus without complications; J44.9 Chronic obstructive pulmonary disease, unspecified; Z87.891 Personal history of nicotine dependence; Z88.5 Allergy status to narcotic agent; Z79.84 Long term (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 drugs
CPT/HCPCS: 74177; 80053; 81001; 83690; 83735; 85025; 99284-25; J2270; J2405; J7030; Q9967

== ENCOUNTER 2021-05-23 13:06 | Inpatient (IN) | payer MEDICARE, OTHER ==
[~2021-05-23] VITALS: Ht 154.9 cm; Wt 70.9 kg
[2021-05-23] MEDS ORDERED: ATORVASTATIN CA40 MG PO (13:29)
[2021-05-23] MEDS ORDERED: PREDNISONE20 MG PO (16:54)
[2021-05-23] MEDS ORDERED: VENTOLIN HFA18 GM INH (16:54)
[2021-05-24] MEDS ORDERED: METFORMIN HCL1000 MG PO (10:49)
[2021-05-25] MEDS ORDERED: DEXAMETHASONE6 MG PO (11:25)
== END 2021-05-25 12:55 | disposition home or self-care (01) | DRG 177 ==
LOC: ED 13:06 → CCU 17:28 → MS 17:28
PROVIDERS: ADMIT Internal Medicine; ATTEND Internal Medicine
PROC: 8E0ZXY6 Isolation (ICD-10-PCS; principal; 2021-05-23)
PROC: XW033E5 Introduction of Remdesivir Anti-infective into Peripheral Vein, Percutaneous Approach, New Technology Group 5 (ICD-10-PCS; 2021-05-23)
PROC: 3E0333Z Introduction of Anti-inflammatory into Peripheral Vein, Percutaneous Approach (ICD-10-PCS; 2021-05-23)
DX: U07.1 COVID-19 (principal); J12.82 Pneumonia due to coronavirus disease 2019; J96.01 Acute respiratory failure with hypoxia; E78.5 Hyperlipidemia, unspecified; E11.9 Type 2 diabetes mellitus without complications; C32.9 Malignant neoplasm of larynx, unspecified; J44.9 Chronic obstructive pulmonary disease, unspecified; Z87.891 Personal history of nicotine dependence; Z98.890 Other specified postprocedural states; Z98.891 History of uterine scar from previous surgery; Z93.0 Tracheostomy status; Z88.5 Allergy status to narcotic agent; Z79.899 Other long term (current) drug therapy
CPT/HCPCS: 71045; 80053; 81001; 83690; 85025; 94640; 94760; 96374; 96375; 96376; 99285-25; A9270; C9803; J1100; J1650; J1815; J1885; J2270; J2405; J7030; J7050; J7121; U0003

== ENCOUNTER 2021-06-03 15:41 | Emergency (ER) | payer MEDICARE, OTHER ==
[~2021-06-03] VITALS: Ht 154.9 cm; Wt 70.8 kg
[~2021-06-03 15:41] MED LIST changes: +ATORVASTATIN CA40 MG PO; +DEXAMETHASONE6 MG PO; +METFORMIN HCL1000 MG PO; +VENTOLIN HFA18 GM INH
--- NOTE | 2021-06-03 21:11 | EKG ---
[facility] [address] [place], [place] [address] Signed Normal sinus rhythm Normal ECG No previous ECGs available Confirmed by MINE SOSA MD ([id number]) on 06/03/2021 9:11:34 PM Electronically Signed By: MINE SOSA MD 06/03/212110 PATIENT NAME: RAUDEL VASQUEZINE Electrocardiogram DATE OF : 55 PHYSICIAN: MINE SOSA MD REPORT #: [id number] REPORT IS CONFIDENTIAL AND NOT TO BE RELEASED WITHOUT AUTHORIZATION
== END 2021-06-03 19:21 | disposition home or self-care (01) ==
LOC: ED 15:41
DX: U07.1 COVID-19 (principal); E11.65 Type 2 diabetes mellitus with hyperglycemia; J44.9 Chronic obstructive pulmonary disease, unspecified; Z87.891 Personal history of nicotine dependence; Z88.5 Allergy status to narcotic agent; Z79.899 Other long term (current) drug therapy; Z79.84 Long term (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 drugs
CPT/HCPCS: 71045; 80053; 83735; 84484; 85025; 93005; 93010; 96374; 96375; 99285-25; J1815; J1885; J2405; J7030

== ENCOUNTER 2022-07-06 14:32 | Emergency (ER) | payer MEDICARE, OTHER ==
[~2022-07-06] VITALS: Ht 154.9 cm; Wt 70.8 kg
[2022-07-06] MEDS ORDERED: KAPSPARGO SPRIN25 MG PO (14:52)
[2022-07-06] MEDS ORDERED: SERTRALINE HCL25 MG PO (14:53)
[2022-07-06] MEDS ORDERED: MELOXICAM15 MG PO (14:53)
[2022-07-06] MEDS ORDERED: EUTHYROX50 MCG PO (14:53)
[2022-07-06] MEDS ORDERED: OMEPRAZOLE20 MG PO (14:53)
== END 2022-07-06 18:45 | disposition home or self-care (01) ==
LOC: ED 14:32
DX: Z53.21 Procedure and treatment not carried out due to patient leaving prior to being seen by health care provider (principal)
CPT/HCPCS: 71045; 87502; C9803; U0003

== ENCOUNTER 2022-07-09 07:04 | Emergency (ER) | payer MEDICARE, OTHER ==
[~2022-07-09] VITALS: Ht 154.9 cm; Wt 70.8 kg
[~2022-07-09 07:04] MED LIST changes: +EUTHYROX50 MCG PO; +KAPSPARGO SPRIN25 MG PO; +MELOXICAM15 MG PO; +OMEPRAZOLE20 MG PO; +SERTRALINE HCL25 MG PO
[2022-07-09] MEDS ORDERED: VISTARIL25 MG PO (07:37)
== END 2022-07-09 07:54 | disposition home or self-care (01) ==
LOC: ED 07:04
DX: F41.9 Anxiety disorder, unspecified (principal); F12.90 Cannabis use, unspecified, uncomplicated; J44.9 Chronic obstructive pulmonary disease, unspecified; E11.9 Type 2 diabetes mellitus without complications; Z87.891 Personal history of nicotine dependence; Z88.5 Allergy status to narcotic agent; Z79.84 Long term (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 drugs; Z79.899 Other long term (current) drug therapy
CPT/HCPCS: 99283; Q0177

== ENCOUNTER 2022-07-30 00:25 | Inpatient (IN) | payer MEDICARE, OTHER ==
[~2022-07-30] VITALS: Ht 154.9 cm; Wt 69.3 kg
[~2022-07-30 00:25] MED LIST changes: +VISTARIL25 MG PO
--- NOTE | 2022-07-30 03:30 | NUR ---
PT ARRIVED FROM ED VIA STRETCHER. ABLE TO SCOOT HERSELF FROM STRETCHER TO CCU BED. ABX INFUSING AT TIME OF ADMISSION- PT APPEARS TO BE TOLERATING WELL. VSS. NO DISTRESS NOTED. CALL LIGHT AT HAND. ORIENTED TO UNIT. WILL CONT TO MONITOR.
--- NOTE | 2022-07-30 05:30 | NUR ---
PT UP TO COMMODE AT BEDSIDE W/ ASSIST OF 1. TOLERATING IVF ORDERED. REPOSITIONED IN BED. VSS. NO DISTRESS NOTED. VERBALIZES NEEDS APPROPRIATELY. CALL LIGHT WITHIN REACH. WILL CONT TO MONITOR.
--- NOTE | 2022-07-30 07:30 | NUR ---
BLOOD SUGAR CHECKED, 74. PATIENT GIVEN ORANGE JUICE. BREAKFAST TO FOLLOW SHORTLY.
--- NOTE | 2022-07-30 08:08 | NUR ---
MANAGEMENT RETAIL INTERN, PRN TYLENOL GIVEN FOR BACK PAIN. PATIENT IS ALERT, ORIENTED, AND ABLE TO FOLLOW COMMANDS, CONVERSE APPROPRIATELY, AND DISCUSS TREATMENT PLAN FOR THE DAY. PATIENT ABLE TO MOVE IN BED NEEDED FOR POSITIONS OF COMFORT. SCHEDULED ABX STARTED. PER RN ONCOLOGY RESEARCH, PATIENT ABLE TO AMBULATE USING FWW TO BATHROOM OR BEDSIDE COMMODE. PATIENT CURRENTLY LAYING IN BED. PATIENT DENIES NEEDS AT THIS TIME. PERSONAL ITEMS AND CALL LIGHT WITHIN REACH.
--- NOTE | 2022-07-30 09:32 | NUR ---
Updated son, Teddy Vivas over the phone.
--- NOTE | 2022-07-30 09:58 | NUR ---
Patient currently resting in bed with eyes closed. Equal chest rise and fall. Patient laying on belly/left side. Personal items and call light within reach.
--- NOTE | 2022-07-30 12:00 | NUR ---
Dr. Zuleta at bedside for evaluation. Patient medications reviewed. Patient able to converse appropriately and follow conversation. Order updates to follow. Patient denies any needs at this time. Personal items and call light within reach.
--- NOTE | 2022-07-30 12:11 | NUR ---
Updated son, Krishna regarding patient's status. All questions answered over the phone.
--- NOTE | 2022-07-30 13:15 | NUR ---
PATIENT WAS SLEEPING SOUNDLY ON LEFT SIDE. DID NOT AWAKEN TO NAME. WILL FOLLOW WHEN AWAKE.
--- NOTE | 2022-07-30 14:07 | NUR ---
Patient resting in bed watching tv. Patient denies needs at this time. Scheduled medications given. Personal items and call light within reach.
--- NOTE | 2022-07-30 15:22 | NUR ---
medications reconciled using pharmacy records & patient interview
--- NOTE | 2022-07-30 16:00 | NUR ---
PATIENT RESTING IN BED, EYES CLOSED, EQUAL CHEST RISE AND FALL. ABX CURRENTLY RUNNING. BLOOD PRESSURES BECOMING MORE STABLE THROUGHOUT SHIFT. PERSONAL ITEMS AND CALL LIGHT WITHIN REACH.
--- NOTE | 2022-07-30 17:48 | NUR ---
Report given to MALU Guerrero. Patient currently resting in bed, eyes closed, equal chest rise and fall. Patient did not want dinner and states she would wait for a little bit. Blood pressures have stabilized this afternoon and patient is amble to ambulate to bathroom with SBA. Patient states she feels better compared to when she first arrived. Patient has remained afebrile throughout shift. Patient downgraded to MS per Dr. Zuleta and is currently a house convenience hold.
--- NOTE | 2022-07-30 19:45 | NUR ---
REPORT RECEIVED. PATIENT HAS VISITORS IN ROOM. EATING SOME OF HER DINNER. DENIES ANY NEEDS.
--- NOTE | 2022-07-30 20:30 | NUR ---
PATIENT UP TO THE BATHROOM WITH SBA FROM DEN TORIBIO
--- NOTE | 2022-07-30 20:50 | EKG ---
[facility] [address] [place], [place] [address] Signed Normal sinus rhythm Nonspecific T wave abnormality Abnormal ECG When compared with ECG of 03-JUN-2021 16:38, No significant change was found Confirmed by MINE SOSA MD ([id number]) on 07/30/2022 8:50:21 PM Electronically Signed By: MINE SOSA MD 07/30/222049 PATIENT NAME: CHRISTINARAUDEL Electrocardiogram DATE OF : 55 PHYSICIAN: MINE SOSA MD REPORT #: [id number] REPORT IS CONFIDENTIAL AND NOT TO BE RELEASED WITHOUT AUTHORIZATION
--- NOTE | 2022-07-30 21:30 | NUR ---
PATIENT REPORTS BACK PAIN. PRN TYLENOL NOT PREVIOSULY EFFECTIVE. PATIENT ADDS HER "LUNGS" OR CHEST HURT WITH COUGHING, DESCRIBES IT MUSCLE PAIN. PATIENT APPEARS CALM, VS STABLE. DISCUSSED WITH MD; PRN ORDERS FOR NORCO AND NEBS RECEIVED. SEE EMAR. RT CALLED. PATIENT RECEIVED A NEB TREATMENT AND PRN NORCO AND MELATONIN. PATIENT IS SLIGHTLY DROWSY WHEN RN FINISHES ASSESSMENT AND CLEANING UP THE ROOM. PATIENT'S BLOOD GLUCOSE WITHIN RANGE. VS STABLE. TOLERATING ROOM AIR WITH Sp02 90-92%. PATIENT REQUEST OXYGEN, 1L NC PLACED ON HER. IVF AND ABX INFUSING PER ORDER, IV SITES WNL X2. PATIENT PROVIDED WITH FRESH ICE WATER AND CALL LIGHT IS IN REACH. NO OTHER NEEDS AT THIS TIME. LIGHTS DIMMED PER REQUEST.
--- NOTE | 2022-07-30 23:25 | NUR ---
IV ABX FINISHED. PATIENT DOES NOT STIR WHILE RN IN ROOM. VS STABLE. ALLOWED PATIENT TO REST. CALL LIGHT IN REACH.
--- NOTE | 2022-07-31 08:00 | NUR ---
ASSESSMENT DONE. TALKED WITH PATIENT ABOUT POC FOR THE DAY, PATIENT IS UNDERSTANDING. IVF PATENT. SITTING UP IN BED FOR BREAKFAST. C/O INCREASED CHEST DISCOMFORT WITH COUGH.
--- NOTE | 2022-07-31 09:00 | NUR ---
TOOK APPROX 30% OF BREAKFAST. SLEEPING NOW.
--- NOTE | 2022-07-31 10:30 | NUR ---
CONTINUES TO SLEEP. O2 AT [address] NO RESP DISTRESS NOTED.
--- NOTE | 2022-07-31 12:00 | NUR ---
SITTING UP IN BED FOR LUNCH. ASSESSMENT DONE.
--- NOTE | 2022-07-31 14:25 | NUR ---
C/O INCREASED PAIN WITH COUGH. NORCO (2) GIVEN. RESTING WITH TV ON.
--- NOTE | 2022-07-31 18:45 | NUR ---
NO CHANGES. FAMILY IS IN ROOM. DENIES RESP DISTRESS.
--- NOTE | 2022-07-31 19:08 | NUR ---
REPORT TO NEXT SHIFT.
--- NOTE | 2022-07-31 19:30 | NUR ---
report received, patient's family in room. patient resting eyes colsed. call light in reach.
--- NOTE | 2022-07-31 21:30 | NUR ---
PATIENT WOKE EASILY WHEN RN IN ROOM. IV ABX STARTED PER ORDER, SITE WNL X2. PATIENT TOLERATING ROOM AIR. VS STABLE. MONITOR DC PER MD VERBAL ORDERS. PATIENT DENIES ANY NEEDS OR CONCERNS AT THIS TIME. CALL LIGHT IN REACH. LIGHTS DIMMED, TV OFF.
--- NOTE | 2022-07-31 22:15 | NUR ---
PATIENT UP TO THE BATHROOM. SBA FOR IV POLE MANAGEMENT. PATIENT TOLERATED WELL. RETURNED TO BED. WARM BLANKET PROVIDED. NO OTHER NEEDS AT THIS TIME. CALL LIGHT IN REACH.
--- NOTE | 2022-08-01 00:28 | NUR ---
PATIENT RESTING WITH EYES CLOSED. BREATHING REGULAR AND NON LABORED. RR 18. ALLOWED PATIENT TO REST. CALL LIGHT IN REACH.
--- NOTE | 2022-08-01 07:30 | NUR ---
PATIENT SHIFT REPORT RECIEVED FROM SWINGING CUT OFF SAW OPERATOR RN. PATIENT IS RESTING IN BED AT THIS TIME. PER REPORT PATIENTS IV INFILTRATED OVER NIGHT. PATIENTS RIGHT HAND IS SWOLLEN. PATIENT HAS RINGS ON THAT SHE IS UNABLE TO GET OFF, BUT ARE NOT CAUSING ISSUES AT THIS TIME. PATIENT HAS GOOD CMS. PATIENT DENIES NUBNESS/TINGLING.
--- NOTE | 2022-08-01 08:45 | NUR ---
PATIENT UP TO BR AND THEN IN RECLINER, LEGS ELEVATED. WARM BLANKET FRESH ICE WATER PROVIDED. CALL LIGHT IN EASY REACH
--- NOTE | 2022-08-01 09:00 | NUR ---
THIS RN IN TO DO AM ASSESSMENT. PATIENT UP IN THE CHAIR. MEDICATIONS GIVEN. PATIENTS BREATH SOUNDS ARE COARSE. PATIENT HAS A HOARSE VOICE AND COUGH. PATIENT REPORTS "MY COUGHING IS BETTER FROM YESTERDAY". PATIENT HAS 6/10 PAIN AT THIS TIME, BUT DENIES WANTING ANYTHING FOR PAIN. PATIENT BOWEL TONES ACTIVE. PATIENT DENIES CONSTIPATION AND NEEDING ANYTHING FOR IT. PATIENTS RIGHT HAD IS SWOLLEN. PATIENT IS ORIN TO BEND AND MOVE FINGERS. PATIENT REPORTS IT FEELS BETTER THAN IT DID. NO NUBNESS OR TINGLING. PATIENTS HAND IS WARM AND PINK. WILL CONTINUE TO CLOSELY MONITOR. CALL LIGHT IN REACH. NO OTHER NEEDS AT THIS TIME.
--- NOTE | 2022-08-01 10:30 | NUR ---
THIS RN IN TO CHECK ON PATIENT. PATIENT SITTING IN THE CHAIR AND COMPLAINING OF IT BEING UNCOMFORTABLE. PATIENT ASSISTED BACK TO BED. PATIENT TOLERATED WELL. PATIENT NOW RESTING ON HER SIDE. WILL CONTINUE TO CLOSELY MONITOR.
--- NOTE | 2022-08-01 11:30 | NUR ---
PATIENT UP IN CHAIR FOR LUNCH. WASHCLOTHS USED TO WASH AND NEW BRIEF PROVIDED.
--- NOTE | 2022-08-01 11:59 | NUR ---
PATIENT REMAINS IN RECLINER, USING INCENTIVE SPIROMETER, CALL LIGHT IN EASY REACH
--- NOTE | 2022-08-01 13:19 | NUR ---
PATIENT ATE LUNCH IN THE CAHIR. ENCOURAGED TO DO THE INCENTIVE SPIROMETER WHILE SHE WAS UP. PATIENT THEN ASSISTED BACK TO BED. PATIENT HAS TV ON. NO CHANGES TO HER ASSESSMENT. WILL CONTINUE TO CLOSELY MONITOR.
--- NOTE | 2022-08-01 14:50 | NUR ---
PATIENT UP TO THE SHOWER WITH CITY ROUTE DRIVER. PATIENT ABLE TO TOLERATE WELL.
--- NOTE | 2022-08-01 15:30 | NUR ---
PATIENT HAIR BRAIDED PER REQUEST. PATIENT NOW RESTING IN BED. PATIENT USED RESTROOM. NO OTHER NEEDS AT THIS TIME. WARM BLANKET PROVIDED. WILL CONTINUE TO CLOSELY MONITOR.
--- NOTE | 2022-08-01 17:10 | NUR ---
MEDICATIONS GIVEN. ASSESSMENT COMPELTED. PATIENT RESTING AT EDGE OF BED EATING DINNER. WARM BLANKET PROVIDED. PATIENT HAD A BREATHING TREATMENT THIS AFTERNOON. PATIENT STATES "I FEEL LIKE I CAN BREATH A LITTLE EASIER WITH THE NEB TREATMENT. WILL CONTINUE TO CLOSELY MONITOR.
--- NOTE | 2022-08-01 18:22 | NUR ---
PATIENT CALLED. PATIENTS UP AND TO BATHROOM WITH SUPERVISION. PATIENT IS STEADY ON HER FEET. PATIENT BACK TO BED. VITALS DONE. PATIENT HAS CALL LIGHT. PATIENT DENIES ANY OTHER NEEDS AT THIS TIME. ICE WATER AT THE BEDSIDE. WILL CONTINUE TO CLOSELY MONITOR.
--- NOTE | 2022-08-01 18:59 | NUR ---
RN ROUNDING AFTER REPORT. PT RESTING IN BED EYES CLOSED RESP REGULAR AT 18 BREATHS/MIN. NO DISTRESS NOTED, WILL ALLOW PT TO REST FOR NOW.
--- NOTE | 2022-08-01 19:28 | NUR ---
PT USED CALL LIGHT TO CALL NURSES STATION TO ASK FOR ASSISTANCE TO THE BATHROOM. PT AMBULATED WITH STEADY GAIT WITH STANDBY/SUPERVISED ASSIST. NO DISTRESS, NO SOB, ASSESSMENT COMPLETE.
--- NOTE | 2022-08-01 19:37 | NUR ---
PT REPORTS SHE HAS NOT HAD A BM IN 2 DAYS AND THIS IS NOT NORMAL FOR HER, SHE SAID SHE WOULD BE AGREEABLE TO TAKE BOWEL MEDICATIONS IN THE AM.
--- NOTE | 2022-08-01 20:51 | NUR ---
PT ALERT FOR MEDICATION PASS AT THIS TIME, SHE REPORTS PAIN 6/10 RIB PAIN FROM COUGHING, TYLENOL PRN ADMINISTERED, PT INTERESTED IN SNACK, GAVE SUGAR FREE PUDDING AND DIET SPRITE. NO OTHER CONCERNS OR REQUESTS, NOTED THAT PT ABLE TO TWIST AND TURN ALL RINGS ON HANDS AND REPORTS NO LOSS OF FEELING AT THIS TIME. PT HAS MOIST COUGH, SHE SAID SHE IS NOT ABLE TO PRODUCE SPUTUM AT THIS TIME.
--- NOTE | 2022-08-01 21:16 | NUR ---
PT USED CALL LIGHT FOR ASSISTANCE WITH IV POLE TO BATHROOM. PT TOLERATED WELL, VOIDED 200 CLEAR YELLOW URINE
--- NOTE | 2022-08-02 01:30 | NUR ---
pt up to bathroom to void, tolerated activity well, no distress or increase in work of breathing. no further requests at this time.
--- NOTE | 2022-08-02 03:21 | NUR ---
PT BACK TO BED FROM BATHROOM, FLUSHED LEFT WRIST IV NOTED TO DEVELOPE BUMP UNDER SKIN PT SAID "IT HURTS WHEN YOU TOUCH IT" LEFT WRIST IV D/C AND NEW IV STARTED AT LEFT FA, VANCO NOW INFUSING IN NEW IV SITE, WILL MONITOR CLOSELY. PT REQUESTED A WARM BLANKET THIS IS PROVIDED AND PT BACK TO BED, NO FURTHER NEEDS OR CONCERNS AT THIS TIME.
--- NOTE | 2022-08-02 04:11 | NUR ---
PT UP TO BATHROOM TO VOID, TOLERATED ACTIVITY WELL, REQUESTED A SNACK, SHE SAID "MY STOMACH IS GROWLING, BUT I DONT REALLY FEEL HUNGRY" SUGAR FREE PUDDING PROVIDED WITH CRACKERS. NO OTHER REQUESTS AT THIS TIME. PT IS ALERT AND ORIENTED. NO DISTRESS NOTED ON ASSESSMENT, NO INCREASE IN WORK OF BREATHING WITH ACTIVITY.
--- NOTE | 2022-08-02 06:33 | NUR ---
PT SITTING AT BEDSIDE AFTER USING BATHROOM, VOIDED 300 ML URINE AND HAD LARGE BM. PT ALERT AND ORIENTED, SL, NO DISTRESS, NO SOB, MOIST COUGH. NO NEW CONCERNS
--- NOTE | 2022-08-02 07:30 | NUR ---
REPORT RECIEVED FROM TRAY FILLER RN. PATIENT RESTING IN BED. CALL LIGHT IN REACH. PATIENT CALLS APPROPRIATELY. WILL CONTINUE TO CLOSELY MONITOR.
[2022-08-02] MEDS ORDERED: AMOX TR-K CLV1 EAC1 PO (07:54)
--- NOTE | 2022-08-02 08:15 | NUR ---
PATIENT AWAKE AND UP AT THE BEDSIDE. RASCH IN TO SEE PATIENT. MD REVIEWED PLAN OF CARE WITH PATIENT. PATIENT WILL DC HOME TODAY. PATIENT IS AGREEABLE TO PLAN OF CARE. MEDICATIONS PROVIDED, BREAKFAST PROVIDED. CALL LIGHT IN REACH. PATIENT DENIES ANY OTHER NEEDS AT THIS TIME. WILL CONTINUE TO CLOSELY MONITOR.
--- NOTE | 2022-08-02 10:00 | NUR ---
PATIENT IV REMOVED AND PATIENT UP TO THE BATHROOM TO GET DRESSED. PATIENT TOLERATED WELL. PATIENT SITTING ON THE BED AWAITING PHARMACY TO REVIEW MEDICATIONS WITH HER. PATIENTS SON WILL BE COMING TO TOOL SUPERVISOR PATIENT. NO OTHER NEEDS AT THIS TIME. WILL CONTINUE TO CLOSELY MONITOR.
--- NOTE | 2022-08-02 10:50 | NUR ---
REVIEWED DISCHARGE INSTRUCTIONS WITH PATIENT. PATIENT AGREEABLE TO PLAN ON CARE. PATIENT REPEATED INFORMATION BACK THAT SHE WOULD CALL THURSDAY TO MAKE A FOLLOW-UP APT AND SHE WOULD GO DOWN WHEN SHE LEAVES TO GET HER NEW PRESCRIPTIONS. ALL BELONGINGS SENT WITH PATIENT, INCLUDING HER CONTAINER OF JEWLERY AND CELL PHONE. THIS RN WHEELED PATIENT TO THE FRONT TO WAIT FOR HER SON. NO OTHER NEEDS AT THIS TIME.
== END 2022-08-02 10:45 | disposition home or self-care (01) | DRG 871 ==
LOC: ED 00:25 → CCU 00:26
PROVIDERS: ADMIT Internal Medicine; ATTEND Internal Medicine
DX: A40.3 Sepsis due to Streptococcus pneumoniae (principal); J13 Pneumonia due to Streptococcus pneumoniae; J96.01 Acute respiratory failure with hypoxia; J44.0 Chronic obstructive pulmonary disease with (acute) lower respiratory infection; E11.9 Type 2 diabetes mellitus without complications; F15.90 Other stimulant use, unspecified, uncomplicated; F12.90 Cannabis use, unspecified, uncomplicated; E86.1 Hypovolemia; I95.89 Other hypotension; Z20.822 Contact with and (suspected) exposure to COVID-19; Z85.21 Personal history of malignant neoplasm of larynx; Z87.891 Personal history of nicotine dependence; Z98.890 Other specified postprocedural states; Z88.5 Allergy status to narcotic agent; Z86.16 Personal history of COVID-19; Z92.3 Personal history of irradiation; Z79.899 Other long term (current) drug therapy; Z79.84 Long term (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 drugs; Z79.02 Long term (current) use of antithrombotics/antiplatelets; Z90.02 Acquired absence of larynx; Z85.72 Personal history of non-Hodgkin lymphomas; Z88.1 Allergy status to other antibiotic agents
CPT/HCPCS: 36415; 51701; 71045; 80048; 80053; 80202; 81001; 83605; 83735; 85025; 87040; 87502; 93005; 93010; 94640; 99284-25; A9270; C9803; J0456; J0692; J1200; J1650; J1815; J1956; J3370; J3475; J7030; J7060; J7121; Q0177; U0003

== ENCOUNTER 2022-09-25 05:32 | Emergency (ER) | payer MEDICARE, OTHER ==
[~2022-09-25] VITALS: Ht 154.9 cm; Wt 67.4 kg
[~2022-09-25 05:32] MED LIST changes: +AMOX TR-K CLV1 EAC1 PO
[2022-09-25] MEDS ORDERED: LIDOCAINE HCL100 ML MT (07:21)
[2022-09-25] MEDS ORDERED: CYCLOBENZAPRINE10 MG PO (07:21)
== END 2022-09-25 07:36 | disposition home or self-care (01) ==
LOC: ED 05:32
DX: J10.1 Influenza due to other identified influenza virus with other respiratory manifestations (principal); J44.9 Chronic obstructive pulmonary disease, unspecified; E11.9 Type 2 diabetes mellitus without complications; Z87.891 Personal history of nicotine dependence; Z88.5 Allergy status to narcotic agent; Z88.1 Allergy status to other antibiotic agents; Z79.899 Other long term (current) drug therapy; Z79.84 Long term (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 drugs; Z20.822 Contact with and (suspected) exposure to COVID-19
CPT/HCPCS: 70360; 71045; 87502; 96372; 99283-25; C9803; J1100; U0003

== ENCOUNTER 2023-05-19 07:16 | Emergency (ER) | payer MEDICARE, OTHER ==
[~2023-05-19] VITALS: Ht 154.9 cm; Wt 67.9 kg
--- OUTSIDE RECORDS SUMMARY | ~2023-05-19 | XMS | Continuity of Care Document ---
Demographics + + + | Address | [address] | | | [place] [address] | + + + | Preferred Language | Unknown | + + + | Marital Status | | + + + | Advent Affiliation | Unknown | + + + | Race | White | + + + | Ethnic Group | Not or | + + + Author + + + | Author | [facility] | + + + | Organization | [facility] | + + + | Address | [address] | | | [place] [address] | + + + | Phone | | + + + Care Team Providers + + + + | Care Research And Development Tester Name | Role | Phone | + + + + Unavailable | Unavailable | + + + + Unavailable | Unavailable | + + + + Allergies and Intolerances + + + + + + | date | description | facility | reaction | severity | + + + + + + | (no date) | Codeine | [facility] | (no reaction) | (no severity) | [facility] | | | + + + + + + | (no date) | Codeine | [facility] | (no reaction) | (no severity) | | [facility] | | | + + + + + + | (no date) | Levofloxacin | [facility] | (no reaction) | (no severity) | | [facility] | | | + + + + + + | (no date) | Itching | [facility] | (no reaction) | (no severity) | | [facility] | | | + + + + + + | (no date) | Levofloxacin | [facility] | (no reaction) | (no severity) | | [facility] | | | + + + + + + | (no date) | Levofloxacin | [facility] | (no reaction) | (no severity) | | [facility] | | | + + + + + + | (no date) | Codeine | [facility] | (no reaction) | (no severity) | | [facility] | | | + + + + + + Encounters No information. Functional Status No information. Immunizations + + + + | date | description | facility | + + + + | 2022-07-06 00:00 | Pneumococcal | [facility] | | | Polysaccharide PPV23 | | + + + + | 2022-07-09 00:00 | Pneumococcal | [facility] | | | Polysaccharide PPV23 | | + + + + | 2022-07-29 00:00 | Pneumococcal | [facility] | | | Polysaccharide PPV23 | | + + + + | 2022-08-02 00:00 | Pneumococcal | [facility] | | | Polysaccharide PPV23 | | + + + + | 2022-09-26 00:00 | Pneumococcal | [facility] | | | Polysaccharide PPV23 | | + + + + Medications + + + + | date | description | facility | + + + + | 2022-09-25 00:00 | LIDOCAINE 2% VISCOUS | [facility] | + + + + | 2018-03-22 00:00 | PHENAZOPYRIDINE HCL | [facility] | + + + + | 2022-07-06 00:00 | MELOXICAM | [facility] | + + + + | 2022-07-09 00:00 | MELOXICAM | [facility] | + + + + | 2022-07-29 00:00 | MELOXICAM | [facility] | + + + + | 2022-08-02 00:00 | MELOXICAM | [facility] | + + + + | 2022-09-26 00:00 | MELOXICAM | [facility] | + + + + | 2021-05-25 00:00 | DEXAMETHASONE | [facility] | + + + + | 2022-07-06 00:00 | DIAZEPAM | [facility] | + + + + | 2022-07-09 00:00 | DIAZEPAM | [facility] | + + + + | 2022-07-29 00:00 | DIAZEPAM | [facility] | + + + + | 2022-08-02 00:00 | DIAZEPAM | [facility] | + + + + | 2022-09-26 00:00 | DIAZEPAM | [facility] | + + + + | 2022-07-06 00:00 | NICOTINE 21MG | [facility] | + + + + | 2022-07-09 00:00 | NICOTINE 21MG | [facility] | + + + + | 2022-07-29 00:00 | NICOTINE 21MG | [facility] | + + + + | 2022-08-02 00:00 | NICOTINE 21MG | [facility] | + + + + | 2022-09-26 00:00 | NICOTINE 21MG | [facility] | + + + + | 2022-07-06 00:00 | OMEPRAZOLE | [facility] | + + + + | 2022-07-09 00:00 | OMEPRAZOLE | [facility] | + + + + | 2022-07-29 00:00 | OMEPRAZOLE | [facility] | + + + + | 2022-07-06 00:00 | predniSONE | [facility] | + + + + | 2022-07-09 00:00 | predniSONE | [facility] | + + + + | 2022-07-29 00:00 | predniSONE | [facility] | + + + + | 2022-08-02 00:00 | predniSONE | [facility] | + + + + | 2022-09-26 00:00 | predniSONE | [facility] | + + + + | 2022-07-06 00:00 | Metoprolol Succinate | [facility] | + + + + | 2022-07-09 00:00 | Metoprolol Succinate | [facility] | + + + + | 2022-07-29 00:00 | Metoprolol Succinate | [facility] | + + + + | 2022-08-02 00:00 | Metoprolol Succinate | [facility] | + + + + | 2022-09-26 00:00 | Metoprolol Succinate | [facility] | + + + + | 2018-07-10 00:00 | LEVOFLOXACIN | [facility] | + + + + | 2018-03-22 00:00 | CEPHALEXIN | [facility] | + + + + | 2020-06-30 00:00 | AZITHROMYCIN | [facility] | + + + + | 2022-07-06 00:00 | AZITHROMYCIN | [facility] | + + + + | 2022-07-09 00:00 | AZITHROMYCIN | [facility] | + + + + | 2022-07-29 00:00 | AZITHROMYCIN | [facility] | + + + + | 2022-08-02 00:00 | AZITHROMYCIN | [facility] | + + + + | 2022-09-26 00:00 | AZITHROMYCIN | [facility] | + + + + | 2022-07-06 00:00 | ONDANSETRON HCL | [facility] | + + + + | 2022-07-09 00:00 | ONDANSETRON HCL | [facility] | + + + + | 2022-07-29 00:00 | ONDANSETRON HCL | [facility] | + + + + | 2022-08-02 00:00 | ONDANSETRON HCL | [facility] | + + + + | 2022-09-26 00:00 | ONDANSETRON HCL | [facility] | + + + + | 2020-06-30 00:00 | predniSONE | [facility] | + + + + | 2022-07-06 00:00 | SERTRALINE HCL | [facility] | + + + + | 2022-07-09 00:00 | SERTRALINE HCL | [facility] | + + + + | 2022-07-29 00:00 | SERTRALINE HCL | [facility] | + + + + | 2022-08-02 00:00 | AMOXICILLIN/POTASSIUM CLAV | [facility] | | | | | + + + + | 2022-07-06 00:00 | ATORVASTATIN CALCIUM | [facility] | + + + + | 2022-07-09 00:00 | ATORVASTATIN CALCIUM | [facility] | + + + + | 2022-07-29 00:00 | ATORVASTATIN CALCIUM | [facility] | + + + + | 2022-08-02 00:00 | ATORVASTATIN CALCIUM | [facility] | + + + + | 2022-09-26 00:00 | ATORVASTATIN CALCIUM | [facility] | + + + + | 2022-07-06 00:00 | ALBUTEROL SULFATE | [facility] | + + + + | 2022-07-09 00:00 | ALBUTEROL SULFATE | [facility] | + + + + | 2022-07-29 00:00 | ALBUTEROL SULFATE | [facility] | + + + + | 2022-08-02 00:00 | ALBUTEROL SULFATE | [facility] | + + + + | 2022-09-26 00:00 | ALBUTEROL SULFATE | [facility] | + + + + | 2022-09-25 00:00 | CYCLOBENZAPRINE HCL | [facility] | + + + + | 2016-03-17 00:00 | TRAMADOL HCL | [facility] | + + + + | 2022-07-06 00:00 | HYDROCODONE | [facility] | | | BIT/ACETAMINOPHEN | | + + + + | 2022-07-09 00:00 | HYDROCODONE | [facility] | | | BIT/ACETAMINOPHEN | | + + + + | 2022-07-29 00:00 | HYDROCODONE | [facility] | | | BIT/ACETAMINOPHEN | | + + + + | 2022-08-02 00:00 | HYDROCODONE | [facility] | | | BIT/ACETAMINOPHEN | | + + + + | 2022-09-26 00:00 | HYDROCODONE | [facility] | | | BIT/ACETAMINOPHEN | | + + + + | 2014-04-22 00:00 | HYDROCODONE | [facility] | | | BIT/ACETAMINOPHEN | | + + + + | 2018-07-10 00:00 | HYDROCODONE/IBUPROFEN | [facility] | + + + + | 2022-07-06 00:00 | METFORMIN HCL | [facility] | + + + + | 2022-07-09 00:00 | METFORMIN HCL | [facility] | + + + + | 2022-07-29 00:00 | METFORMIN HCL | [facility] | + + + + | 2022-08-02 00:00 | METFORMIN HCL | [facility] | + + + + | 2022-09-26 00:00 | METFORMIN HCL | [facility] | + + + + | 2022-07-06 00:00 | METFORMIN HCL | [facility] | + + + + | 2022-07-09 00:00 | METFORMIN HCL | [facility] | + + + + | 2022-07-29 00:00 | METFORMIN HCL | [facility] | + + + + | 2022-08-02 00:00 | METFORMIN HCL | [facility] | + + + + | 2022-09-26 00:00 | METFORMIN HCL | [facility] | + + + + | 2022-07-06 00:00 | Levothyroxine Sodium | [facility] | + + + + | 2022-07-09 00:00 | Levothyroxine Sodium | [facility] | + + + + | 2022-07-29 00:00 | Levothyroxine Sodium | [facility] | + + + + | 2022-08-02 00:00 | Levothyroxine Sodium | [facility] | + + + + | 2022-09-26 00:00 | Levothyroxine Sodium | [facility] | + + + + | 2022-07-09 00:00 | HYDROXYZINE PAMOATE | [facility] | + + + + Problems + + + + | date | description | facility | + + + + | 2015-08-14 00:00 | Patient left without being | [facility] | | | seen | | + + + + | 2015-08-17 00:00 | Acute bronchitis | [facility] | + + + + | 2015-09-11 00:00 | Sepsis due to pneumonia | [facility] | + + + + | 2018-03-22 00:00 | Urinary tract infection | [facility] | + + + + | 2018-07-10 00:00 | 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 | | + + + + | 2018-07-10 00:00 | Bronchitis | [facility] | + + + + | 2020-06-30 00:00 | Acute exacerbation of | [facility] | | | chronic obstructive | | | | pulmonary disease | | + + + + | 2020-09-14 00:00 | Hyperglycemia due to | [facility] | | | diabetes mellitus | | + + + + | 2020-09-19 00:00 | Abdominal pain | [facility] | + + + + | 2021-06-03 00:00 | Headache | [facility] | + + + + | 2021-06-03 00:00 | Hyperglycemia | [facility] | + + + + | 2021-06-03 00:00 | Infection due to severe | [facility] | | | acute respiratory syndrome | | | | coronavirus 2 (SARS-CoV-2) | | + + + + | 2022-07-09 00:00 | Anxiety | [facility] | + + + + | 2022-07-09 00:00 | Ingestion of substance | [facility] | + + + + | 2022-07-30 00:00 | Pneumonia | [facility] | + + + + | 2022-09-25 00:00 | Influenza due to influenza | [facility] | | | virus, type A, human | | + + + + Procedures No information. Results/Labs +--------+--------+ +---------+--------+---------+ | test | date | facility | value | unit | notes | +--------+--------+ +---------+--------+---------+ + + | Result panel 1 | + + + + + + + + + | | 2022-07-06 | [facility] | NEGATIVE | (missing) | (missing) | | (unavailable | 14:51 [facility] | | | | + + + + + + + + + | Result panel 2 | + + + + + + + + + | | 2022-07-06 | [facility] | NEGATIVE | (missing) | (missing) | | (unavailable | 14:51 [facility] | | | | + + + + + + + + + | Result panel 3 | + + + + + + + + + | | 2022-07-06 | [facility] | NEGATIVE | (missing) | (missing) | | (unavailable | 14:51 [facility] | | | | + + + + + + + + + | Result panel 4 | + + + + + + + + + | | 2022-07-06 | [facility] | NEGATIVE | (missing) | (missing) | | (unavailable | 14:51 [facility] | | | | + + + + + + + + + | Result panel 5 | + + + + + + + + + | | 2022-07-06 | [facility] | NEGATIVE | (missing) | (missing) | | (unavailable | 14:51 [facility] | | | | + + + + + + + + + | Result panel 6 | + + + + + + + + + | | 2022-07-06 | [facility] | NEGATIVE | (missing) | (missing) | | (unavailable | 14:51 [facility] | | | | + + + + + + + + + | Result panel 7 | + + + + + + + + + | | 2022-07-06 | [facility] | NEGATIVE | (missing) | (missing) | | (unavailable | 14:51 [facility] | | | | + + + + + + + + + | Result panel 8 | + + + + + + + + + | | 2022-07-06 | [facility] | NEGATIVE | (missing) | (missing) | | (unavailable | 14:51 [facility] | | | | + + + + + + + + + | Result panel 9 | + + + + + + + + + | | 2022-07-06 | [facility] | NEGATIVE | (missing) | (missing) | | (unavailable | 14:51 [facility] | | | | + + + + + + + + + | Result panel 10 | + + + + + + + + + | | 2022-07-06 | [facility] | NEGATIVE | (missing) | (missing) | | (unavailable | 14:51 [facility] | | | | + + + + + + + + + | Result panel 11 | + + + + + + + + + | | 2022-07-06 | [facility] | NEGATIVE | (missing) | (missing) | | (unavailable | 14:51 [facility] | | | | + + + + + + + + + | Result panel 12 | + + + + + + + + + | | 2022-07-06 | [facility] | NEGATIVE | (missing) | (missing) | | (unavailable | 14:51 [facility] | | | | + + + + + + + + + | Result panel 13 | + + + + + +-------+ + + | | 2022-07-30 | [facility] | 7.9 | (missing) | (missing) | | (unavailable | 00:40 [facility] | | | | + + + +-------+ + + + + | Result panel 14 | + + + + + +-------+ + + | | 2022-07-30 | [facility] | 3.4 | (missing) | (missing) | | (unavailable | 00:40 [facility] | | | | + + + +-------+ + + + + | Result panel 15 | + + + + + +-------+ + + | | 2022-07-30 | [facility] | 4.5 | (missing) | (missing) | | (unavailable | 00:40 [facility] | | | | + + + +-------+ + + + + | Result panel 16 | + + + + + +--------+ + + | | 2022-07-30 | [facility] | 0.76 | (missing) | (missing) | | (unavailable | 00:40 [facility] | | | | + + + +--------+ + + + + | Result panel 17 | + + + + + +-------+ + + | | 2022-07-30 | [facility] | 0.9 | (missing) | (missing) | | (unavailable | 00:40 [facility] | | | | + + + +-------+ + + + + | Result panel 18 | + + + + + +------+ + + | | 2022-07-30 | [facility] | 30 | (missing) | (missing) | | (unavailable | 00:40 [facility] | | | | + + + +------+ + + + + | Result panel 19 | + + + + + +------+ + + | | 2022-07-30 | [facility] | 50 | (missing) | (missing) | | (unavailable | 00:40 [facility] | | | | + + + +------+ + + + + | Result panel 20 | + + + + + +------+ + + | | 2022-07-30 | [facility] | 43 | (missing) | (missing) | | (unavailable | 00:40 [facility] | | | | + + + +------+ + + + + | Result panel 21 | + + + + + +-------+ + + | | 2022-07-30 | [facility] | 1.7 | (missing) | (missing) | | (unavailable | 00:40 [facility] | | | | + + + +-------+ + + + + | Result panel 22 | + + + + + + + + + | | 2022-07-30 | [facility] | NEGATIVE | (missing) | (missing) | | (unavailable | 00:40 [facility] | | | | + + + + + + + + + | Result panel 23 | + + + + + + + + + | | 2022-07-30 | [facility] | NEGATIVE | (missing) | (missing) | | (unavailable | 00:40 [facility] | | | | + + + + + + + + + | Result panel 24 | + + + + + + + + + | | 2022-07-30 | [facility] | NEGATIVE | (missing) | (missing) | | (unavailable | 00:40 [facility] | | | | + + + + + + + + + | Result panel 25 | + + + + + + + + + | | 2022-07-30 | [facility] | NEGATIVE | (missing) | (missing) | | (unavailable | 00:40 [facility] | | | | + + + + + + + + + | Result panel 26 | + + + + + + + + + | | 2022-07-30 | [facility] | YELLOW | (missing) | (missing) | | (unavailable | 00:55 [facility] | | | | + + + + + + + + + | Result panel 27 | + + + + + +---------+ + + | | 2022-07-30 | [facility] | CLEAR | (missing) | (missing) | | (unavailable | 00:55 [facility] | | | | + + + +---------+ + + + + | Result panel 28 | + + + + + + + + + | | 2022-07-30 | [facility] | NEGATIVE | (missing) | (missing) | | (unavailable | 00:55 [facility] | | | | + + + + + + + + + | Result panel 29 | + + + + + + + + + | | 2022-07-30 | [facility] | NEGATIVE | (missing) | (missing) | | (unavailable | 00:55 [facility] | | | | + + + + + + + + + | Result panel 30 | + + + + + + + + + | | 2022-07-30 | [facility] | NEGATIVE | (missing) | (missing) | | (unavailable | 00:55 [facility] | | | | + + + + + + + + + | Result panel 31 | + + + + + +---------+ + + | | 2022-07-30 | [facility] | 1.015 | (missing) | (missing) | | (unavailable | 00:55 [facility] | | | | + + + +---------+ + + + + | Result panel 32 | + + + + + + + + + | | 2022-07-30 | [facility] | NEGATIVE | (missing) | (missing) | | (unavailable | 00:55 [facility] | | | | + + + + + + + + + | Result panel 33 | + + + + + +-------+ + + | | 2022-07-30 | [facility] | 7.0 | (missing) | (missing) | | (unavailable | 00:55 [facility] | | | | + + + +-------+ + + + + | Result panel 34 | + + + + + +-------+ + + | | 2022-07-30 | [facility] | 100 | (missing) | (missing) | | (unavailable | 00:55 [facility] | | | | + + + +-------+ + + + + | Result panel 35 | + + + + + +-------+ + + | | 2022-07-30 | [facility] | 1.0 | (missing) | (missing) | | (unavailable | 00:55 [facility] | | | | + + + +-------+ + + + + | Result panel 36 | + + + + + + + + + | | 2022-07-30 | [facility] | NEGATIVE | (missing) | (missing) | | (unavailable | 00:55 [facility] | | | | + + + + + + + + + | Result panel 37 | + + + + + + + + + | | 2022-07-30 | [facility] | NEGATIVE | (missing) | (missing) | | (unavailable | 00:55 [facility] | | | | + + + + + + + + + | Result panel 38 | + + + + + +-------+ + + | | 2022-07-30 | [facility] | 0-1 | (missing) | (missing) | | (unavailable | 00:55 [facility] | | | | + + + +-------+ + + + + | Result panel 39 | + + + + + +-------+ + + | | 2022-07-30 | [facility] | 0-1 | (missing) | (missing) | | (unavailable | 00:55 | [facility] | | | | + + + +-------+ + + + + | Result panel 40 | + + + + + + + + + | | 2022-07-30 | [facility] | SQUAMOUS 2+ | (missing) | (missing) | | (unavailable | 00:55 [facility] | | | | + + + + + + + + + | Result panel 41 | + + + + + + + + + | | 2022-07-30 | [facility] | NONE SEEN | (missing) | (missing) | | (unavailable | 00:55 [facility] | | | | + + + + + + + + + | Result panel 42 | + + + + + + + + + | | 2022-07-30 | [facility] | NONE SEEN | (missing) | (missing) | | (unavailable | 00:55 [facility] | | | | + + + + + + + + + | Result panel 43 | + + + + + + + + + | | 2022-07-30 | [facility] | NONE SEEN | (missing) | (missing) | | (unavailable | 00:55 [facility] | | | | + + + + + + + + + | Result panel 44 | + + + + + +------+ + + | | 2022-07-30 | [facility] | No | (missing) | (missing) | | (unavailable | 00:55 [facility] | | | | + + + +------+ + + + + | Result panel 45 | + + + + + + + + + | | 2022-07-30 | [facility] | POSITIVE | (missing) | (missing) | | (unavailable | 00:55 [facility] | | | | + + + + + + + + + | Result panel 46 | + + + + + + + + + | | 2022-07-30 | [facility] | POSITIVE | (missing) | (missing) | | (unavailable | 00:55 [facility] | | | | + + + + + + + + + | Result panel 47 | + + + + + + + + + | | 2022-07-30 | [facility] | NEGATIVE | (missing) | (missing) | | (unavailable | 00:55 [facility] | | | | + + + + + + + + + | Result panel 48 | + + + + + + + + + | | 2022-07-30 | [facility] | NEGATIVE | (missing) | (missing) | | (unavailable | 00:55 [facility] | | | | + + + + + + + + + | Result panel 49 | + + + + + + + + + | | 2022-07-30 | [facility] | NEGATIVE | (missing) | (missing) | | (unavailable | 00:55 [facility] | | | | + + + + + + + + + | Result panel 50 | + + + + + + + + + | | 2022-07-30 | [facility] | NEGATIVE | (missing) | (missing) | | (unavailable | 00:55 [facility] | | | | + + + + + + + + + | Result panel 51 | + + + + + + + + + | | 2022-07-30 | [facility] | NEGATIVE | (missing) | (missing) | | (unavailable | 00:55 [facility] | | | | + + + + + + + + + | Result panel 52 | + + + + + + + + + | | 2022-07-30 | [facility] | NEGATIVE | (missing) | (missing) | | (unavailable | 00:55 [facility] | | | | + + + + + + + + + | Result panel 53 | + + + + + + + + + | | 2022-07-30 | [facility] | NEGATIVE | (missing) | (missing) | | (unavailable | 00:55 [facility] | | | | + + + + + + + + + | Result panel 54 | + + + + + + + + + | | 2022-07-30 | [facility] | POSITIVE | (missing) | (missing) | | (unavailable | 00:55 [facility] | | | | + + + + + + + + + | Result panel 55 | + + + + + + + + + | | 2022-07-30 | [facility] | NEGATIVE | (missing) | (missing) | | (unavailable | 00:55 [facility] | | | | + + + + + + + + + | Result panel 56 | + + + + + + + + + | | 2022-07-30 | [facility] | NEGATIVE | (missing) | (missing) | | (unavailable | 00:55 [facility] | | | | + + + + + + + + + | Result panel 57 | + + + + + + + + + | | 2022-07-30 | [facility] | NEGATIVE | (missing) | (missing) | | (unavailable | 00:55 [facility] | | | | + + + + + + + + + | Result panel 58 | + + + + + +-----+ + + | | 2022-07-31 | [facility] | 3 | (missing) | (missing) | | (unavailable | 05:26 | [facility] | | | | + + + +-----+ + + + + | Result panel 59 | + + + + + + + + + | | 2022-07-31 | [facility] | PRESENT | (missing) | (missing) | | (unavailable | 05:26 | [facility] | | | | + + + + + + + + + | Result panel 60 | + + + + + + + + + | | 2022-07-31 | [facility] | PRESENT | (missing) | (missing) | | (unavailable | 05:26 | [facility] | | | | + + + + + + + + + | Result panel 61 | + + + + + +-------+---------+ + | | 2022-07-31 | [facility] | 1.5 | mg/dL | (missing) | | (unavailable | 05:26 | [facility] | | | | + + + +-------+---------+ + + + | Result panel 62 | + + + + + +------+ + + | | 2022-08-01 | [facility] | 17 | (missing) | (missing) | | (unavailable | 05:14 | [facility] | | | | + + + +------+ + + + + | Result panel 63 | + + + + + +-----+ + + | | 2022-08-01 | [facility] | 7 | (missing) | (missing) | | (unavailable | 05:14 | [facility] | | | | + + + +-----+ + + + + | Result panel 64 | + + + + + +-----+ + + | | 2022-08-01 | [facility] | 2 | (missing) | (missing) | | (unavailable | 05:14 | [facility] | | | | + + + +-----+ + + + + | Result panel 65 | + + + + + +-----+ + + | | 2022-08-01 | [facility] | 5 | (missing) | (missing) | | (unavailable | 05:14 | [facility] | | | | + + + +-----+ + + + + | Result panel 66 | + + + + + +-----+ + + | | 2022-08-01 | [facility] | 1 | (missing) | (missing) | | (unavailable | 05:14 | [facility] | | | | + + + +-----+ + + + + | Result panel 67 | + + + + + + + + + | | 2022-08-01 | [facility] | PRESENT | (missing) | (missing) | | (unavailable | 05:14 | [facility] | | | | + + + + + + + + + | Result panel 68 | + + + + + + + + + | | 2022-08-01 | [facility] | PRESENT | (missing) | (missing) | | (unavailable | 05:14 | [facility] | | | | + + + + + + + + + | Result panel 69 | + + + + + + + + + | | 2022-08-01 | [facility] | PRESENT | (missing) | (missing) | | (unavailable | 05:14 | [facility] | | | | + + + + + + + + + | Result panel 70 | + + + + + + + + + | | 2022-08-01 | [facility] | PRESENT | (missing) | (missing) | | (unavailable | 05:14 | [facility] | | | | + + + + + + + + + | Result panel 71 | + + + + + + + + + | | 2022-08-01 | [facility] | PRESENT | (missing) | (missing) | | (unavailable | 05:14 | [facility] | | | | + + + + + + + + + | Result panel 72 | + + + + + +------+ + + | | 2022-08-01 | [facility] | 67 | (missing) | (missing) | | (unavailable | 05:14 | [facility] | | | + + + +------+ + + + + | Result panel 73 | + + + + + +-------+ + + | | 2022-08-01 | [facility] | 9.9 | (missing) | (missing) | | (unavailable | 15:40 [facility] | | | | + + + +-------+ + + + + | Result panel 74 | + + + + + +-------+ + + | | 2022-08-01 | [facility] | 166 | (missing) | (missing) | | (unavailable | 20:35 [facility] | | | | + + + +-------+ + + + + | Result panel 75 | + + + + + +-------+ + + | | 2022-08-02 | [facility] | 5.4 | (missing) | (missing) | | (unavailable | 05:03 [facility] | | | | + + + +-------+ + + + + | Result panel 76 | + + + + + +--------+ + + | | 2022-08-02 | [facility] | 4.02 | (missing) | (missing) | | (unavailable | 05:03 [facility] | | | | + + + +--------+ + + + + | Result panel 77 | + + + + + +--------+ + + | | 2022-08-02 | [facility] | 12.0 | (missing) | (missing) | | (unavailable | 05:03 [facility] | | | + + + +--------+ + + + + | Result panel 78 | + + + + + +--------+ + + | | 2022-08-02 | [facility] | 36.4 | (missing) | (missing) | | (unavailable | 05:03 [facility] | | | + + + +--------+ + + + + | Result panel 79 | + + + + + +--------+ + + | | 2022-08-02 | [facility] | 90.6 | (missing) | (missing) | | (unavailable | 05:03 [facility] | | | + + + +--------+ + + + + | Result panel 80 | + + + + + +--------+ + + | | 2022-08-02 | [facility] | 29.8 | (missing) | (missing) | | (unavailable | 05:03 [facility] | | | + + + +--------+ + + + + | Result panel 81 | + + + + + +--------+ + + | | 2022-08-02 | [facility] | 32.9 | (missing) | (missing) | | (unavailable | 05:03 [facility] | | | + + + +--------+ + + + + | Result panel 82 | + + + + + +--------+ + + | | 2022-08-02 | [facility] | 15.2 | (missing) | (missing) | | (unavailable | 05:03 [facility] | | | + + + +--------+ + + + + | Result panel 83 | + + + + + +-------+ + + | | 2022-08-02 | [facility] | 254 | (missing) | (missing) | | (unavailable | 05:03 [facility] | | | + + + +-------+ + + + + | Result panel 84 | + + + + + +--------+ + + | | 2022-08-02 | [facility] | 64.7 | (missing) | (missing) | | (unavailable | 05:03 [facility] | | | + + + +--------+ + + + + | Result panel 85 | + + + + + +--------+ + + | | 2022-08-02 | [facility] | 25.6 | (missing) | (missing) | | (unavailable | 05:03 [facility] | | | + + + +--------+ + + + + | Result panel 86 | + + + + + +-------+ + + | | 2022-08-02 | [facility] | 5.4 | (missing) | (missing) | | (unavailable | 05:03 [facility] | | | + + + +-------+ + + + + | Result panel 87 | + + + + + +-------+ + + | | 2022-08-02 | [facility] | 3.6 | (missing) | (missing) | | (unavailable | 05:03 [facility] | | | + + + +-------+ + + + + | Result panel 88 | + + + + + +-------+ + + | | 2022-08-02 | [facility] | 0.7 | (missing) | (missing) | | (unavailable | 05:03 [facility] | | | + + + +-------+ + + + + | Result panel 89 | + + + + + +-------+---------+ + | | 2022-08-02 | [facility] | 178 | mg/dL | (missing) | | (unavailable | 05:03 [facility] | | | + + + +-------+---------+ + + + | Result panel 90 | + + + + + +------+---------+ + | | 2022-08-02 | [facility] | 16 | mg/dL | (missing) | | (unavailable | 05:03 [facility] | | | + + + +------+---------+ + + + | Result panel 91 | + + + + + +--------+---------+ + | | 2022-08-02 | [facility] | 0.98 | mg/dL | (missing) | | (unavailable | 05:03 [facility] | | | + + + +--------+---------+ + + + | Result panel 92 | + + + + + +------+ + + | | 2022-08-02 | [facility] | 64 | (missing) | (missing) | | (unavailable | 05:03 [facility] | | | + + + +------+ + + + + | Result panel 93 | + + + + + +---------+ + + | | 2022-08-02 | [facility] | 16.32 | (missing) | (missing) | | (unavailable | 05:03 [facility] | | | + + + +---------+ + + + + | Result panel 94 | + + + + + +-------+ + + | | 2022-08-02 | [facility] | 142 | (missing) | (missing) | | (unavailable | 05:03 [facility] | | | + + + +-------+ + + + + | Result panel 95 | + + + + + +-------+ + + | | 2022-08-02 | [facility] | 3.5 | (missing) | (missing) | | (unavailable | 05:03 [facility] | | | + + + +-------+ + + + + | Result panel 96 | + + + + + +-------+ + + | | 2022-08-02 | [facility] | 105 | (missing) | (missing) | | (unavailable | 05:03 [facility] | | | + + + +-------+ + + + + | Result panel 97 | + + + + + +------+ + + | | 2022-08-02 | [facility] | 28 | (missing) | (missing) | | (unavailable | 05:03 [facility] | | | + + + +------+ + + + + | Result panel 98 | + + + + + +--------+ + + | | 2022-08-02 | [facility] | 12.5 | (missing) | (missing) | | (unavailable | 05:03 [facility] | | | + + + +--------+ + + + + | Result panel 99 | + + + + + +-------+---------+ + | | 2022-08-02 | [facility] | 8.7 | mg/dL | (missing) | | (unavailable | 05:03 [facility] | | | + + + +-------+---------+ + + + | Result panel 100 | + + + + + + + + + | | 2022-09-25 | [facility] | NEGATIVE | (missing) | (missing) | | (unavailable | 05:50:08 [facility] | | | + + + + + + + + + | Result panel 101 | + + + + + + + + + | | 2022-09-25 | [facility] | POSITIVE | (missing) | (missing) | | (unavailable | 05:50:08 [facility] | | | + + + + + + + + + | Result panel 102 | + + + + + + + + + | | 2022-09-25 | [facility] | NEGATIVE | (missing) | (missing) | | (unavailable | 05:50:08 [facility] | | | + + + + + + + + + | Result panel 103 | + + + + + + + + + | | 2022-09-25 | [facility] | NEGATIVE | (missing) | (missing) | | (unavailable | 05:50:08 [facility] | | | + + + + + + + Social History No information. Vital Signs + + + +---------+ | date | measurement | value | units | + + + +---------+ | 2022-07-06 00:00 | BMI | 29.5 | kg/m2 | + + + +---------+ | 2022-07-06 00:00 | BP_diastolic | 82 | mmHg | + + + +---------+ | 2022-07-06 00:00 | BP_systolic | 145 | mmHg | + + + +---------+ | 2022-07-06 00:00 | heart_rate | 70 | /min | + + + +---------+ | 2022-07-06 00:00 | height_metric | 154.94 | cm | + + + +---------+ | 2022-07-06 00:00 | height_standard | 61 | in | + + + +---------+ | 2022-07-06 00:00 | o2_saturation | 90 | % | + + + +---------+ | 2022-07-06 00:00 | respiration_rate | 18 | /min | + + + +---------+ | 2022-07-06 00:00 | temperature_metric | 37.11 | C | | | | | | + + + +---------+ | 2022-07-06 00:00 | | 98.8 | F | | | temperature_standar | | | | | d | | | + + + +---------+ | 2022-07-06 00:00 | weight_metric | 70.76 | kg | + + + +---------+ | 2022-07-06 00:00 | weight_standard | 156 | lb | + + + +---------+ | 2022-07-09 00:00 | BMI | 29.5 | kg/m2 | + + + +---------+ | 2022-07-09 00:00 | BP_diastolic | 86 | mmHg | + + + +---------+ | 2022-07-09 00:00 | BP_systolic | 161 | mmHg | + + + +---------+ | 2022-07-09 00:00 | heart_rate | 58 | /min | + + + +---------+ | 2022-07-09 00:00 | height_metric | 154.94 | cm | + + + +---------+ | 2022-07-09 00:00 | height_standard | 61 | in | + + + +---------+ | 2022-07-09 00:00 | o2_saturation | 93 | % | + + + +---------+ | 2022-07-09 00:00 | respiration_rate | 17 | /min | + + + +---------+ | 2022-07-09 00:00 | temperature_metric | 37.06 | C | | | | | | + + + +---------+ | 2022-07-09 00:00 | | 98.7 | F | | | temperature_standar | | | | | d | | | + + + +---------+ | 2022-07-09 00:00 | weight_metric | 70.76 | kg | + + + +---------+ | 2022-07-09 00:00 | weight_standard | 156 | lb | + + + +---------+ | 2022-07-29 00:00 | BMI | 29.5 | kg/m2 | + + + +---------+ | 2022-07-29 00:00 | BP_diastolic | 55 | mmHg | + + + +---------+ | 2022-07-29 00:00 | BP_systolic | 94 | mmHg | + + + +---------+ | 2022-07-29 00:00 | heart_rate | 78 | /min | + + + +---------+ | 2022-07-29 00:00 | height_metric | 154.94 | cm | + + + +---------+ | 2022-07-29 00:00 | height_standard | 61 | in | + + + +---------+ | 2022-07-29 00:00 | o2_saturation | 94 | % | + + + +---------+ | 2022-07-29 00:00 | respiration_rate | 16 | /min | + + + +---------+ | 2022-07-29 00:00 | temperature_metric | 37.33 | C | | | | | | + + + +---------+ | 2022-07-29 00:00 | | 99.2 | F | | | temperature_standar | | | | | d | | | + + + +---------+ | 2022-07-29 00:00 | weight_metric | 70.76 | kg | + + + +---------+ | 2022-07-29 00:00 | weight_standard | 156 | lb | + + + +---------+ | 2022-07-30 00:00 | BMI | 28.9 | kg/m2 | + + + +---------+ | 2022-07-30 00:00 | height_metric | 154.94 | cm | + + + +---------+ | 2022-07-30 00:00 | height_standard | 61 | in | + + + +---------+ | 2022-07-30 00:00 | weight_metric | 69.3 | kg | + + + +---------+ | 2022-07-30 00:00 | weight_standard | 152.78 | lb | + + + +---------+ | 2022-08-02 00:00 | BP_diastolic | 101 | mmHg | + + + +---------+ | 2022-08-02 00:00 | BP_systolic | 178 | mmHg | + + + +---------+ | 2022-08-02 00:00 | heart_rate | 76 | /min | + + + +---------+ | 2022-08-02 00:00 | o2_saturation | 95 | % | + + + +---------+ | 2022-08-02 00:00 | respiration_rate | 16 | /min | + + + +---------+ | 2022-08-02 00:00 | temperature_metric | 36.89 | C | | | | | | + + + +---------+ | 2022-08-02 00:00 | | 98.4 | F | | | temperature_standar | | | | | d | | | + + + +---------+ | 2022-09-25 00:00 | BMI | 28.1 | kg/m2 | + + + +---------+ | 2022-09-25 00:00 | BP_diastolic | 93 | mmHg | + + + +---------+ | 2022-09-25 00:00 | BP_systolic | 170 | mmHg | + + + +---------+ | 2022-09-25 00:00 | heart_rate | 61 | /min | + + + +---------+ | 2022-09-25 00:00 | height_metric | 154.94 | cm | + + + +---------+ | 2022-09-25 00:00 | height_standard | 61 | in | + + + +---------+ | 2022-09-25 00:00 | o2_saturation | 97 | % | + + + +---------+ | 2022-09-25 00:00 | respiration_rate | 18 | /min | + + + +---------+ | 2022-09-25 00:00 | temperature_metric | 36.61 | C | | | | | | + + + +---------+ | 2022-09-25 00:00 | | 97.9 | F | | | temperature_standar | | | | | d | | | + + + +---------+ | 2022-09-25 00:00 | weight_metric | 67.4 | kg | + + + +---------+ | 2022-09-25 00:00 | weight_standard | 148.59 | lb | + + + +---------+"
--- OUTSIDE RECORDS SUMMARY | ~2023-05-19 | XMS | Continuity of Care Document ---
Demographics + + + | Address | [address] | | | [place] [address] | + + + | Preferred Language | Unknown | + + + | Marital Status | | + + + | Anabaptist Affiliation | Unknown | + + + | Race | White | + + + | Ethnic Group | Not or | + + + Author + + + | Author | [facility] | + + + | Organization | [facility] | + + + | Address | [address] | | | [place] [address] | + + + | Phone | | + + + Care Team Providers + + + + | Care Back [employer] Name | Role | Phone | + [...] + | 2022-07-06 00:00 | Pneumococcal | [facility] | | | Polysaccharide PPV23 | | + + + + | 2022-07-09 00:00 | Pneumococcal | [facility] | | | Polysaccharide PPV23 | | + + + + | 2022-07-29 00:00 | Pneumococcal | [facility] | | | Polysaccharide PPV23 | | + + + + | 2022-08-02 00:00 | Pneumococcal | [facility] | | | Polysaccharide PPV23 | | + + + + | 2022-09-26 00:00 | Pneumococcal | [facility] | | | Polysaccharide PPV23 | | + + + + Medications + + + + | date | description | facility | + + + + | 2022-09-25 00:00 | LIDOCAINE 2% VISCOUS | [facility] | + + + + | 2018-03-22 00:00 | PHENAZOPYRIDINE HCL | [facility] | + + + + | 2022-07-06 00:00 | MELOXICAM | [facility] | + + + + | 2022-07-09 00:00 | MELOXICAM | [facility] | + + + + | 2022-07-29 00:00 | MELOXICAM | [facility] | + + + + | 2022-08-02 00:00 | MELOXICAM | [facility] | + + + + | 2022-09-26 00:00 | MELOXICAM | [facility] | + + + + | 2021-05-25 00:00 | DEXAMETHASONE | [facility] | + + + + | 2022-07-06 00:00 | DIAZEPAM | [facility] | + + + + | 2022-07-09 00:00 | DIAZEPAM | [facility] | + + + + | 2022-07-29 00:00 | DIAZEPAM | [facility] | + + + + | 2022-08-02 00:00 | DIAZEPAM | [facility] | + + + + | 2022-09-26 00:00 | DIAZEPAM | [facility] | + + + + | 2022-07-06 00:00 | NICOTINE 21MG | [facility] | + + + + | 2022-07-09 00:00 | NICOTINE 21MG | [facility] | + + + + | 2022-07-29 00:00 | NICOTINE 21MG | [facility] | + + + + | 2022-08-02 00:00 | NICOTINE 21MG | [facility] | + + + + | 2022-09-26 00:00 | NICOTINE 21MG | [facility] | + + + + | 2022-07-06 00:00 | OMEPRAZOLE | [facility] | + + + + | 2022-07-09 00:00 | OMEPRAZOLE | [facility] | + + + + | 2022-07-29 00:00 | OMEPRAZOLE | [facility] | + + + + | 2022-07-06 00:00 | predniSONE | [facility] | + + + + | 2022-07-09 00:00 | predniSONE | [facility] | + + + + | 2022-07-29 00:00 | predniSONE | [facility] | + + + + | 2022-08-02 00:00 | predniSONE | [facility] | + + + + | 2022-09-26 00:00 | predniSONE | [facility] | + + + + | 2022-07-06 00:00 | Metoprolol Succinate | [facility] | + + + + | 2022-07-09 00:00 | Metoprolol Succinate | [facility] | + + + + | 2022-07-29 00:00 | Metoprolol Succinate | [facility] | + + + + | 2022-08-02 00:00 | Metoprolol Succinate | [facility] | + + + + | 2022-09-26 00:00 | Metoprolol Succinate | [facility] | + + + + | 2018-07-10 00:00 | LEVOFLOXACIN | [facility] | + + + + | 2018-03-22 00:00 | CEPHALEXIN | [facility] | + + + + | 2020-06-30 00:00 | AZITHROMYCIN | [facility] | + + + + | 2022-07-06 00:00 | AZITHROMYCIN | [facility] | + + + + | 2022-07-09 00:00 | AZITHROMYCIN | [facility] | + + + + | 2022-07-29 00:00 | AZITHROMYCIN | [facility] | + + + + | 2022-08-02 00:00 | AZITHROMYCIN | [facility] | + + + + | 2022-09-26 00:00 | AZITHROMYCIN | [facility] | + + + + | 2022-07-06 00:00 | ONDANSETRON HCL | [facility] | + + + + | 2022-07-09 00:00 | ONDANSETRON HCL | [facility] | + + + + | 2022-07-29 00:00 | ONDANSETRON HCL | [facility] | + + + + | 2022-08-02 00:00 | ONDANSETRON HCL | [facility] | + + + + | 2022-09-26 00:00 | ONDANSETRON HCL | [facility] | + + + + | 2020-06-30 00:00 | predniSONE | [facility] | + + + + | 2022-07-06 00:00 | SERTRALINE HCL | [facility] | + + + + | 2022-07-09 00:00 | SERTRALINE HCL | [facility] | + + + + | 2022-07-29 00:00 | SERTRALINE HCL | [facility] | + + + + | 2022-08-02 00:00 | AMOXICILLIN/POTASSIUM CLAV | [facility] | | | | | + + + + | 2022-07-06 00:00 | ATORVASTATIN CALCIUM | [facility] | + + + + | 2022-07-09 00:00 | ATORVASTATIN CALCIUM | [facility] | + + + + | 2022-07-29 00:00 | ATORVASTATIN CALCIUM | [facility] | + + + + | 2022-08-02 00:00 | ATORVASTATIN CALCIUM | [facility] | + + + + | 2022-09-26 00:00 | ATORVASTATIN CALCIUM | [facility] | + + + + | 2022-07-06 00:00 | ALBUTEROL SULFATE | [facility] | + + + + | 2022-07-09 00:00 | ALBUTEROL SULFATE | [facility] | + + + + | 2022-07-29 00:00 | ALBUTEROL SULFATE | [facility] | + + + + | 2022-08-02 00:00 | ALBUTEROL SULFATE | [facility] | + + + + | 2022-09-26 00:00 | ALBUTEROL SULFATE | [facility] | + + + + | 2022-09-25 00:00 | CYCLOBENZAPRINE HCL | [facility] | + + + + | 2016-03-17 00:00 | TRAMADOL HCL | [facility] | + + + + | 2022-07-06 00:00 | HYDROCODONE | [facility] | | | BIT/ACETAMINOPHEN | | + + + + | 2022-07-09 00:00 | HYDROCODONE | [facility] | | | BIT/ACETAMINOPHEN | | + + + + | 2022-07-29 00:00 | HYDROCODONE | [facility] | | | BIT/ACETAMINOPHEN | | + + + + | 2022-08-02 00:00 | HYDROCODONE | [facility] | | | BIT/ACETAMINOPHEN | | + + + + | 2022-09-26 00:00 | HYDROCODONE | [facility] | | | BIT/ACETAMINOPHEN | | + + + + | 2014-04-22 00:00 | HYDROCODONE | [facility] | | | BIT/ACETAMINOPHEN | | + + + + | 2018-07-10 00:00 | HYDROCODONE/IBUPROFEN | [facility] | + + + + | 2022-07-06 00:00 | METFORMIN HCL | [facility] | + + + + | 2022-07-09 00:00 | METFORMIN HCL | [facility] | + + + + | 2022-07-29 00:00 | METFORMIN HCL | [facility] | + + + + | 2022-08-02 00:00 | METFORMIN HCL | [facility] | + + + + | 2022-09-26 00:00 | METFORMIN HCL | [facility] | + + + + | 2022-07-06 00:00 | METFORMIN HCL | [facility] | + + + + | 2022-07-09 00:00 | METFORMIN HCL | [facility] | + + + + | 2022-07-29 00:00 | METFORMIN HCL | [facility] | + + + + | 2022-08-02 00:00 | METFORMIN HCL | [facility] | + + + + | 2022-09-26 00:00 | METFORMIN HCL | [facility] | + + + + | 2022-07-06 00:00 | Levothyroxine Sodium | [facility] | + + + + | 2022-07-09 00:00 | Levothyroxine Sodium | [facility] | + + + + | 2022-07-29 00:00 | Levothyroxine Sodium | [facility] | + + + + | 2022-08-02 00:00 | Levothyroxine Sodium | [facility] | + + + + | 2022-09-26 00:00 | Levothyroxine Sodium | [facility] | + + + + | 2022-07-09 00:00 | HYDROXYZINE PAMOATE | [facility] | + + + + Problems + + + + | date | description | facility | + + + + | 2015-08-14 00:00 | Patient left without being | [facility] | | | seen | | + + + + | 2015-08-17 00:00 | Acute bronchitis | [facility] | + + + + | 2015-09-11 00:00 | Sepsis due to pneumonia | [facility] | + + + + | 2018-03-22 00:00 | Urinary tract infection | [facility] | + + + + | 2018-07-10 00:00 | 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 | | + + + + | 2018-07-10 00:00 | Bronchitis | [facility] | + + + + | 2020-06-30 00:00 | Acute exacerbation of | [facility] | | | chronic obstructive | | | | pulmonary disease | | + + + + | 2020-09-14 00:00 | Hyperglycemia due to | [facility] | | | diabetes mellitus | | + + + + | 2020-09-19 00:00 | Abdominal pain | [facility] | + + + + | 2021-06-03 00:00 | Headache | [facility] | + + + + | 2021-06-03 00:00 | Hyperglycemia | [facility] | + + + + | 2021-06-03 00:00 | Infection due to severe | [facility] | | | acute respiratory syndrome | | | | coronavirus 2 (SARS-CoV-2) | | + + + + | 2022-07-09 00:00 | Anxiety | [facility] | + + + + | 2022-07-09 00:00 | Ingestion of substance | [facility] | + + + + | 2022-07-30 00:00 | Pneumonia | [facility] | + + + + | 2022-09-25 00:00 | Influenza due to influenza | [facility] | | | virus, type A, [...]
[~2023-05-19 07:16] MED LIST changes: +CYCLOBENZAPRINE10 MG PO; +LIDOCAINE HCL100 ML MT
[2023-05-19] MEDS ORDERED: TRANSDERM-SCOP1 EACH TD (08:37)
[2023-05-19 09:46] VITALS: BP 136/91
--- NOTE | 2023-05-19 20:48 | EKG ---
[facility] [address] [place] [address] Signed Normal sinus rhythm Normal ECG When compared with ECG of 30-JUL-2022 00:42, Nonspecific T wave abnormality no longer evident in Anterior leads Confirmed by Jose Gamboa MD () on 05/19/2023 8:47:43 PM Electronically Signed By: JOSE GAMBOA MD [id number] PATIENT NAME: CHRISTINARAUDEL Electrocardiogram DATE OF : 55 PHYSICIAN: JOSE GAMBOA MD REPORT #: [id number] REPORT IS CONFIDENTIAL AND NOT TO BE RELEASED WITHOUT AUTHORIZATION
== END 2023-05-19 09:46 | disposition home or self-care (01) ==
LOC: ED 07:16
DX: H81.11 Benign paroxysmal vertigo, right ear (principal); E11.9 Type 2 diabetes mellitus without complications; Z87.891 Personal history of nicotine dependence; Z88.5 Allergy status to narcotic agent; Z88.1 Allergy status to other antibiotic agents; Z79.899 Other long term (current) drug therapy; Z79.84 Long term (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 drugs
CPT/HCPCS: 36415; 80053; 85025; 93005; 93010; 99284-25

== ENCOUNTER 2024-03-13 08:18 | Emergency (ER) | payer MEDICARE, OTHER ==
[~2024-03-13] VITALS: Ht 154.9 cm; Wt 70.6 kg
[~2024-03-13 08:18] MED LIST changes: +TRANSDERM-SCOP1 EACH TD
[2024-03-13] MEDS ORDERED: IBUPROFEN 600 MG TAB PO ONE (08:30)
[2024-03-13] MEDS ORDERED: HYDROCODONE/ACETA 7.5/325 TAB PO ONE (08:30)
[2024-03-13] MEDS ORDERED: HYDROCODON-ACE1 EA10 PO (08:48)
[2024-03-13 09:04] VITALS: BP 196/111
[2024-03-14] MEDS ORDERED: HYDROCODON-ACE1 EA11 PO (11:50)
== END 2024-03-13 09:04 | disposition home or self-care (01) ==
LOC: ED 08:18
DX: S82.831A Other fracture of upper and lower end of right fibula, initial encounter for closed fracture (principal); E11.9 Type 2 diabetes mellitus without complications; J44.9 Chronic obstructive pulmonary disease, unspecified; W18.30XA Fall on same level, unspecified, initial encounter; Z87.891 Personal history of nicotine dependence; Z88.5 Allergy status to narcotic agent; Z88.1 Allergy status to other antibiotic agents; Z79.84 Long term (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 drugs
CPT/HCPCS: 73590; 73610; 99283-25; A9270

== ENCOUNTER 2024-03-25 15:38 | Emergency (ER) | payer MEDICARE, OTHER ==
[~2024-03-25] VITALS: Ht 154.9 cm; Wt 76.7 kg
[~2024-03-25 15:38] MED LIST changes: +CELEBREX100 MG PO; +CELECOXIB100 MG PO; +HYDROCODON-ACE1 EA11 PO; +LEVOTHYROXINE50 MCG PO; +METOPROLOL SUCC25 MG PO; +TRAMADOL HCL50 MG PO
[2024-03-25 18:22] VITALS: BP 183/95
== END 2024-03-25 18:19 | disposition home or self-care (01) ==
LOC: ED 15:38
DX: M25.571 Pain in right ankle and joints of right foot (principal); Z98.890 Other specified postprocedural states; E11.9 Type 2 diabetes mellitus without complications; J44.9 Chronic obstructive pulmonary disease, unspecified; Z79.84 Long term (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 drugs; Z79.890 Hormone replacement therapy; Z79.899 Other long term (current) drug therapy
CPT/HCPCS: 99283

== ENCOUNTER 2024-04-11 01:06 | Emergency (ER) | payer MEDICARE, OTHER ==
[~2024-04-11] VITALS: Ht 154.9 cm; Wt 72.7 kg
[2024-04-11] MEDS ORDERED: TRAMADOL HCL 50 MG TAB PO ONE (01:30)
[2024-04-11] MEDS ORDERED: TRAMADOL HCL50 MG PO (01:43)
[2024-04-11] MEDS ORDERED: TRAMADOL HCL 50 MG HOME.PACK PO ONE (02:00)
[2024-04-11 02:04] VITALS: BP 182/108
== END 2024-04-11 02:05 | disposition home or self-care (01) ==
LOC: ED 01:06
DX: G89.18 Other acute postprocedural pain (principal); E11.9 Type 2 diabetes mellitus without complications; J44.9 Chronic obstructive pulmonary disease, unspecified; Z87.891 Personal history of nicotine dependence; Z79.899 Other long term (current) drug therapy
CPT/HCPCS: A9270

== ENCOUNTER 2024-06-18 20:17 | Emergency (ER) | payer MEDICARE, OTHER ==
[~2024-06-18] VITALS: Ht 154.9 cm; Wt 69.1 kg
[2024-06-18] MEDS ORDERED: METFORMIN HCL1000 MG PO (20:33)
[2024-06-18] MEDS ORDERED: ATORVASTATIN CA40 MG PO (20:33)
[2024-06-18] MEDS ORDERED: GABAPENTIN300 MG PO (20:33)
[2024-06-18] MEDS ORDERED: DOXYCYCLINE HY100 MG PO (20:53)
[2024-06-18] MEDS ORDERED: DOXYCYCLINE HYCLATE 100 MG HOME.PACK PO ONE (21:00)
[2024-06-18] MEDS ORDERED: diphenhydrAMINE HCL 50 MG CAP PO ONE (21:00)
[2024-06-18 21:16] VITALS: BP 155/90
== END 2024-06-18 21:16 | disposition home or self-care (01) ==
LOC: ED 20:17
DX: R21 Rash and other nonspecific skin eruption (principal); E11.9 Type 2 diabetes mellitus without complications; J44.9 Chronic obstructive pulmonary disease, unspecified; Z87.891 Personal history of nicotine dependence; Z79.84 Long term (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 drugs; Z79.890 Hormone replacement therapy; Z79.899 Other long term (current) drug therapy
CPT/HCPCS: 99282; A9270; Q0163

== ENCOUNTER 2025-02-25 10:16 | Emergency (ER) | payer MEDICARE, OTHER ==
[~2025-02-25] VITALS: Ht 154.9 cm; Wt 69.8 kg
[~2025-02-25 10:16] MED LIST changes: +DOXYCYCLINE HY100 MG PO; +GABAPENTIN300 MG PO
[2025-02-25 10:43] LABS: BASOPHILS 0.7 % (0-2); EOSINOPHILS 2.3 % (0-6); HEMATOCRIT 41.7 % (35.0-50.0); HEMOGLOBIN 14.1 g/dL (12.0-18.0); LYMPHOCYTES 33.2 % (24-44); MCH 30.1 (27-36); MCHC 33.7 g/dl (30-36); MCV 89.4 fl (81-99); MONOCYTES 8.9 % (0-12); NEUTROPHILS 54.9 % (39-80); PLATELET COUNT 296 K/uL (140-440); RBC 4.67 M/ul (4.3-5.7)
[2025-02-25 11:12] LABS: ALBUMIN 3.5 g/dL (3.4-5.0); ALBUMIN/GLOBULIN RATIO 0.71 (1.1-2.4); ANION GAP 11.8 (7-21); BILIRUBIN, TOTAL 0.3 mg/dL (0.2-1.0); CALCIUM 9.5 mg/dL (8.5-10.1); CREATININE, SERUM 1.16 mg/dL (0.55-1.02); MAGNESIUM 1.5 mg/dL (1.8-2.4); POTASSIUM 3.8 mmol/L (3.5-5.1); PROTEIN, TOTAL 8.4 g/dL (6.4-8.2)
[2025-02-25 12:38] VITALS: BP 128/72
--- NOTE | 2025-02-26 20:49 | EKG ---
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
== END 2025-02-25 12:38 | disposition home or self-care (01) ==
LOC: ED 10:16
PROVIDERS: Emergency Medicine
DX: I10 Essential (primary) hypertension (principal); E11.65 Type 2 diabetes mellitus with hyperglycemia; J44.9 Chronic obstructive pulmonary disease, unspecified; Z79.84 Long term (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 drugs
CPT/HCPCS: 36415; 80053; 83036; 83735; 84443; 84484; 85025; 93005; 93010; 99284